=== PATIENT | female | born 1935 | race Caucasian/White ===

== ENCOUNTER → 2016-08-27 | Outpatient (CLI) | payer OTHER ==
[~2016-08-27] MED LIST: ACET-1311 PO; CLX/20 PO; DEXTSYP41 PO; DOCU-94 PO; LSN20 PO; LYR/50 PO; NF656 TD; PANT40TA PO; PROC5TAB PO; SALI1SPR3 NAE; SENN-65 PO; SYN25 PO; TRIA0.25 PO; ULT50 PO; VTMB12 PO; WARF3TAB6 PO
--- NOTE | 2016-08-28 06:38 | SPLIT NIGHT TECHNICIAN REPORT ---
[facility] [address] Split Night Polysomnogram - Registered Public Health Nurse Report Study date: 08/27/2016 Referring Physician: DR. CELIA SANCHEZ Name: CHARLES MONTOYA Registered Public Health Nurse: Chantelle Villa, PSGT. Date of : 1935 Height: 80 years, Height 5' 6" Sex: Female Weight: 118 lbs Age: 80 Split Night Study BMI: Medications: 19.04 LTRICA 50MG, DOCUSATE 100 MG, NEXIUM 40 MG, LISINIPRIL 20 MG, DILTIAZEM 240 MG, SENNA 8.6 MG, B12, CRANBERRY, CITALOPRAM 20 MG, WARFARIN 3 MG, TRIAZOLAM 0.125 MG, TRAMIDOL 50 MG, PROMETHAZINE 12.5 . Patient History 80 YR. OLD FEMALE PRESENTS TONIGHT FOR A DIAGNOSTIC SPLIT NIGHT STUDY.PT. HAD A OVERNIGHT OXIMETRY WHICH DID SHOW 12 DESATS PER HOUR. PT. ALSO SUFFERS FROM INSOMNIA, AND DAYTIME FATIGUE. Parameters Monitored NPSG: E1-M2, E2-M1, Fp1-M2, Fp2-M1, F3-M2, F4-M2, F4-M1, C3-M2, C4-M2, C4-M1, O1-M2, O2-M2, O2-M1, T3-M2, T4-M1, P3-M2, P4-M1, CHIN1, CHIN2, HR, EKG, Legs, PFLOW, SNOR, FLOW, CFLOW, Tidal Volume, THOR, ABDO, SpO2, PLTH, CPRESS, ETCO2 Wave, ETCO2, pH SLEEP SUMMARY DATA DIAGNOSTIC TREATMENT Lights Out: 9:20:09 PM NONE Lights On: 12:35:39 AM 5:16:09 AM Total Recording Time (TRT): 199.2 min. 263.8 min. Total Sleep Time (TST): 162.7 min. 151.8 min. NREM Time: 162.7 min. 136.8 min. REM Time: 0.0 min. 15.0 min. Sleep Period Time (SPT): 173.2 min. 223.8 min. Sleep Efficiency (SE): 82 % 58 % Sleep Latency: 25.0 min. NONE min. Arousal Index: 19.9 7.5 PAP Treatment Levels: 4, 6, 8, 10, 11 * Optimal Pressure(s) SLEEP STAGING DATA DIAGNOSTIC TREATMENT Duration (min) TST % Duration (min) TST % Stage Wake: 36.0 min. -- 112.0 min. -- WASO: 10.5 min. -- 72.0 min. -- NREM: 162.7 min. 100 % 136.8 min. 90 % Stage N1: 7.7 min. 5 % 26.3 min. 17 % Stage N2: 155.0 min. 95 % 110.5 min. 73 % Stage N3: 0.0 min. 0 % 0.0 min. 0 % REM: 0.0 min. 0 % 15.0 min. 10 % POSITIONAL DATA Event Count Index Event Count Index Supine: 114 42.0 42 15.0 Supine NREM: 114 42.0 42 16.7 Supine REM: N/A N/A 0 0 Non-Supine: N/A N/A N/A N/A Non-Supine NREM: N/A N/A N/A N/A Non-Supine REM: N/A N/A N/A N/A AROUSAL SUMMARY DATA: Event Count Index Event Count Index Apnea Arousals: 4 4.1 0 0.0 Hypopnea Arousals: 18 6.6 0 0.0 Snore Arousals: 6 2.2 2 0.8 PLM Arousals: 1 0.4 0 0.0 Non-Specific Arousals: 19 7.0 14 5.5 Total Arousals: 54 19.9 19 7.5 MYOCLONUS (PLM) Event Count Index Event Count Index PLM: 4 1.5 0 0.0 PLM AROUSAL: 1 0.4 0 0.0 PLM W/O AROUSAL 4 1.5 0 0.0 PLM W/RESP EVENT 0 0.0 0 0.0 MYOCLONUS (PLM) Event Count Index Event Count Index LM: 6 37.6 27 10.7 LM AROUSAL: 6 2.2 2 0.8 LM W/O AROUSAL LM W/RESP EVENT LM NON SPECIFIC 67 24.7 22 8.7 HEART RATE DATA DIAGNOSTIC TREATMENT Sleep (bpm): 88 78 REM (bpm): N/A 94 NREM (bpm): 91 93 Tachycardia Count: 0 0 Tachycardia Duration: 0.00 0 Bradycardia Count: 0 0 Bradycardia Duration: 0.00 0 DIAGNOSTIC PORTION TREATMENT PORTION RESPIRATORY DATA Event Count Index Event Count Index AHI: -- 42.0 -- 15.0 RDI: -- 42.0 -- 17 Obstructive Apnea: 11 4.1 0 0.0 Central Apnea: 0 0.0 0 0.0 Mixed Apnea: 0 0.0 0 0.0 Hypopnea: 103 38.0 38 15.0 RERA: 0 0.0 4 1.6 Total Apneas: 11 4.1 0 0.0 RESPIRATORY DATA REM NREM SLEEP REM NREM SLEEP Supine Position: Obstructive Apneas: N/A 11 11 0 0 0 Central Apneas: N/A 0 0 0 0 0 Mixed Apneas: N/A 0 0 0 0 0 Hypopneas: N/A 103 103 0 38 38 RERA N/A 0 0 0 4 4 Total Supine Events: N/A 114 114 0 42 42 Supine AHI: N/A 42.0 42.0 0 16.7 15.0 Supine RDI: N/A 42.0 42.0 0.0 18.4 16.6 REM NREM SLEEP REM NREM SLEEP Non-Supine Position: Obstructive Apneas: N/A N/A N/A N/A N/A N/A Central Apneas: N/A N/A N/A N/A N/A N/A Mixed Apneas: N/A N/A N/A N/A N/A N/A Hypopneas: N/A N/A N/A N/A N/A N/A RERA N/A N/A N/A N/A N/A N/A Total Supine Events: N/A N/A N/A N/A N/A N/A Supine AHI: N/A N/A N/A N/A N/A N/A Supine RDI: N/A N/A N/A N/A N/A N/A OXYGEN DESTAURATION DATA: Event Count Index Event Count Index REM Desaturations: N/A N/A 0 0.0 NREM Desaturations: 124 45.7 34 14.9 SNORE DATA DIAGNOSTIC TREATMENT Snore Time: 10.9 12:51:50 AM Snore TST%: 4 2 Snore Arousal Count: 6 2 Snore Arousal Index: 2.2 0.8 Desaturation Event Summary: Minimum %SpO2 Event Count Mean/Min/Max Duration(sec.) Desaturation Index % Time In Bed > 90 151 37.4 / 16.3 / 60.0 24.5 80.8 86 - 90 13 26.6 / 14.5 / 51.0 9.5 18.0 81 - 85 0 N/A 0.0 1.2 76 - 80 0 N/A 0.0 0.0 71 - 75 0 N/A 0.0 0.0 66 - 70 0 N/A 0.0 0.0 61 - 65 0 N/A 0.0 0.0 56 - 60 0 N/A 0.0 0.0 51 - 55 0 N/A 0.0 0.0 < 50 0 N/A 0.0 0.0 OXYGEN SATURATION DATA DIAGNOSTIC TREATMENT SpO2 Mean Sleep: 91 % 93 % SpO2 Mean REM: N/A % 94 % SpO2 Mean NREM: 91 % 93 % SpO2 Minimum Sleep: 81 % 86 % SpO2 Minimum REM: N/A % 93 % SpO2 Minimum NREM: 81 % 86 % Time Below 90% (TST): 46.5 3.4 Time Below 88% (TST): 19.7 0.5 Total REM NREM Awake <50% 0.0 min. 0.0 min. 0.0 min. 0.0 min. 51 - 60% 0.0 min. 0.0 min. 0.0 min. 0.0 min. 61 - 70% 0.0 min. 0.0 min. 0.0 min. 0.0 min. 71 - 80% 0.0 min. 0.0 min. 0.0 min. 0.0 min. 81 - 90% 87.4 min. 0.0 min. 76.1 min. 11.3 min. 91 - 100% 369.1 min. 15.0 min. 223.4 min. 130.7 min. Average 93 94 92 94 Minimum SpO2 77 93 81 77 Desaturation Event Index 20.5 0.0 31.7 0.4 # Desat. Events below 89% 90 N/A 90 0 Time(%) with Saturation below 89% 7.6 0.0 7.2 0.4 Time(min.) with Saturation below 89% 34.7 0.0 33.0 1.7 Recording Registered Public Health Nurse Comments: Split -Night: MS. Montoya slept in the left, and supine positions. Cardiac arrhythmia, no PLM's noted. No bruxism noted. Snoring was noted and scored as a 3 on a scale of 1 through 5. (0=no snoring, 5=snoring loud enough to be heard through a closed door or down the [address] way) At 12:35 am, MS. Montoya has met specific Split-Night criteria during the diagnostic portion of this study. CPAP was initiated at +4 CMH2O and up-titrated to an optimal level of +11 CMH2O, which nearly eliminated all respiratory events and snoring. A small Res Med Air Fit F-20, was used during titration Ms. Montoya awoke to use the restroom zero times during the night. MS. Montoya stated, I did sleep well here. The final report will be interpreted and signed by a sleep physician. The completed physician report will then be placed in the patient medical record. Pt. had taken Triazolam before bed, she slept well. Pt. wore a small full face mask, she slept with her mouth open throughout the study, she tolerated the mask and treatment well. Therapy Event: Therapy (cm H20) 0 4 6 8 10 11 Total Time at Pressure (min.) 198.7 5.6 9.8 84.8 21.6 142.0 TST at Pressure (min.) 162.7 5.6 8.8 65.8 20.1 51.5 # Periods 1 1 1 1 1 1 Sleep Onset (min.) 25.0 0.0 0.0 0.0 0.0 0.0 REM Onset (min.) N/A N/A N/A N/A N/A 36.5 Sleep Efficiency % 81 100 89 77 93 36 Wakefulness (%) 18.1 0.0 10.2 22.4 6.9 63.7 Wakefulness (min.) 36.0 0.0 1.0 19.0 1.5 90.5 NREM 1 (%) 3.9 23.5 71.4 10.0 13.9 4.6 NREM 1 (min.) 7.7 1.3 7.0 8.5 3.0 6.5 NREM 2 (%) 78.0 76.5 18.4 67.6 79.2 21.1 NREM 2 (min.) 155.0 4.3 1.8 57.3 17.1 30.0 NREM 3 (%) 0.0 0.0 0.0 0.0 0.0 0.0 NREM 3 (min.) 0.0 0.0 0.0 0.0 0.0 0.0 REM (%) 0.0 0.0 0.0 0.0 0.0 10.6 REM (min.) 0.0 0.0 0.0 0.0 0.0 15.0 # Arousals 54 1 4 7 1 6 Arousal Index 19.9 10.6 27.3 6.4 3.0 7.0 # Snore 528 16 33 63 1 2 Snore Index 194.7 170.2 225.0 57.4 3.0 2.3 AHI 42.0 63.8 27.3 21.9 9.0 1.2 AHI Supine 42.0 63.8 27.3 21.9 9.0 1.2 AHI Non-Supine N/A N/A N/A N/A N/A N/A NREM AHI 42.0 63.8 27.3 21.9 9.0 1.6 REM AHI N/A N/A N/A N/A N/A 0.0 RDI 42.0 63.8 54.5 21.9 9.0 1.2 # Obstructive 11 0 0 0 0 0 # Central Ap 0 0 0 0 0 0 # Mixed 0 0 0 0 0 0 # Hypopneas 103 6 4 24 3 1 RERAS 0 0 4 0 0 0 Total Respiratory Events 114 6 8 24 3 1 Time Below SpO2 89.00% (min.) 31.8 0.2 0.2 0.7 0.0 0.0 Mean NREM SpO2 (%) 91 93 93 93 94 94 Mean REM SpO2 (%) N/A N/A N/A N/A N/A 94 Mean Sleep SpO2 (%) 91 93 93 93 94 94 Min NREM SpO2 (%) 81 86 88 87 90 92 Min REM SpO2 (%) N/A N/A N/A N/A N/A 93 Position Supine (min.) 162.7 5.6 8.8 65.8 20.1 51.5 Position Non-supine (min.) 0.0 0.0 0.0 0.0 0.0 0.0 LM Index Sleep 39.1 42.6 27.3 8.2 6.0 9.3 LM Index NREM 39.1 42.6 27.3 8.2 6.0 13.2 LM Index REM N/A N/A N/A N/A N/A 0.0 Mean Heart Rate (bpm) 88 85 83 81 79 73 Min Heart Rate (bpm) 64 73 69 61 64 61
--- NOTE | 2016-08-31 12:48 | POLYSOMNOGRAPH REPORT ---
CLINICAL DATA: The patient is a 80-year-old female with a BMI of 19.04. She is referred by Dr. Jamie Phillips for a split study. Her history is that of observed apnea, daytime fatigue, insomnia, and nocturnal hypoxia. SLEEP ARCHITECTURE: During the diagnostic portion of the study, the sleep period time was 173.2 minutes with the total sleep time of 162.7 minutes. The sleep time included 5% stage N1 and 95% stage N2 with 0% stage N3 or REM. During the therapeutic portion of the study when she was treated with nasal CPAP, the sleep period time was 223.8 minutes with a total sleep time of 151.8 minutes. The sleep efficiency was 58%. The sleep stages during the therapeutic portion included 17% stage N1, 73% stage N2, 0% stage N3, and 10% REM sleep. AROUSAL DATA: During the diagnostic portion of the study, the patient had 54 arousals for an index of 19.9. During the treatment portion of the study, she had 19 arousals for an index of 7.5. PERIODIC LIMB MOVEMENTS DATA: During the diagnostic portion of the study, the patient had a total of 4 periodic limb movements with 1 arousal. The PLM index was 1.5. During the therapeutic portion of the study, there were no periodic limb movements. EKG: The underlying cardiac rhythm was atrial fibrillation. The cardiac rates averaged 88 beats per minute during the diagnostic portion and 78 beats per minute during the therapeutic portion. RESPIRATORY DATA: During the diagnostic portion of the study, the patient had 11 obstructive apneas and 103 hypopneas. The apnea hypopnea index was severely elevated at 42.0 events per hour. During the therapeutic portion of the study, the patient had a total of 38 hypopneas for a mean apnea-hypopnea index of 15.0. At the final pressure of 11 cm, the patient had only 1 respiratory event, a hypopnea. The apnea-hypopnea index was 1.2 events per hour at the final pressure. OXIMETRY DATA: During the diagnostic portion of the study, the minimum oxygen saturation was 81%. The mean saturation was 91%. During the therapeutic portion with nasal CPAP, the minimum oxygen saturation was 86% with a mean of 93%. At the final pressure, the lowest oxygen saturation was 92%. Thus, there was resolution of hypoxia at the final pressure. R[employer] LAP[employer] TENDER'S COMMENTS: The patient slept in the left and supine positions. No bruxism was noted. Snoring was noted as a score of 3 on a scale of 1-5. At 12:35 a.m., the patient had met specific split night criteria during the diagnostic portion of the study. CPAP was initiated at 4 cm and titrated up to an optimal pressure of 11 cm. This essentially resolved all the respiratory events and snoring. IMPRESSION: Obstructive sleep apnea -- severe -- resolved with nasal CPAP at 11 cm. COMMENTS: The patient has severe sleep apnea. In light of this, a split night study was done. She seemed to tolerate nasal CPAP well. The patient did wear a full face mask because she was opening her mouth continuously. Following the study, she did complain of some facial pressure. Clearly, this was related to the mask. Her sleep apnea was resolved and her oxygenation was significantly improved. It may be notable that the patient took triazolam prior to bed as she apparently does at home. She had atrial fibrillation throughout the night with controlled ventricular response rate. She is known to have atrial fibrillation by history. RECOMMENDATIONS: 1. It is advised that the patient be started on nasal CPAP at 11 cm. 2. It is suggested that she be ordered a ResMed Air Fit F-20 size small full facemask. 3. Heated humidity is advised to be utilized with nasal CPAP. 4. The patient should be seen in followup between day 31 and day 90 after initiating nasal CPAP therapy. 5. It is advised that she would avoid sleeping in the supine position. Her events were occurring mainly when she was supine. MTDD
== END | disposition home or self-care (01) ==
LOC: C.NEUR 20:00
DX: G47.33 Obstructive sleep apnea (adult) (pediatric) (principal)

== ENCOUNTER 2019-04-13 21:23 | Inpatient (IN) ==
[2019-04-13] MEDS ORDERED: PROPARACAINE 0.5% 225 DROPS/15 ML BTL ONE (21:48)
[2019-04-13] MEDS ORDERED: CIPROFLOXACIN HCL 0.3% OP SOLN 2.5 ML BTL OP ONE (22:13)
--- NOTE | 2019-04-13 22:45 | Emergency Department Note ---
Entered by Zaid Melo acting as a scribe for Gian Briggs DO History of Present Illness General Chief complaint: Head Pain Stated complaint: PAIN IN HEAD, CHEEK, EYE..EYE DRAINING Time Seen by Provider: 04/13/19 21:35 Source: patient History of Present Illness Onset (ago): day(s) 3 Location: eyes (left) Pain Consistency: + other (worsening) Maximum Pain Intensity: 8 Quality: + burning Exacerbated By: + movement Associated symptoms: + other (Positive for left eye swelling, discharge, and left ankle swelling.) The patient is an 83 year old female who presents to the emergency department with complaints of worsening left eye pain beginning 3 days ago. The patient states that she first developed some left eye irritation and swelling 3 days ago. She notes that she has pain around her left eye on her face which has also worsened. She reports that her eye pain feels like a burning. The patient states that her pain worsens when she moves her eye. She notes that she tried rinsing out her eye and she reports that she did not notice any foreign bodies in her eye. The patient also complains of discharge and left ankle swelling. Home Medications Home Medications Medication Instructions Recorded Confirmed Type aspirin 325 mg PO DAILY@209905/06/18 04/13/19 History diltiazem HCl [Cardizem CD] 240 mg PO DAILY@99905/06/18 04/13/19 History famotidine [Pepcid] 40 mg PO DAILY@209905/06/18 04/13/19 History levothyroxine [Synthroid] 75 mcg PO DAILY@99905/06/18 04/13/19 History omeprazole 40 mg PO DAILY@99905/06/18 04/13/19 History pregabalin [Lyrica] 100 mg PO DAILY@1000,209905/06/18 04/13/19 History sennosides [senna] 8.6 mg PO DAILY@209905/06/18 04/13/19 History atorvastatin 20 mg PO DAILY@209911/16/18 04/13/19 History cranberry 450 mg PO DAILY@99911/16/18 04/13/19 History docusate sodium 200 mg PO DAILY@209911/16/18 04/13/19 History sertraline 50 mg PO DAILY@209911/16/18 04/13/19 History zolpidem 5 mg PO DAILY@2100 11/16/18 04/13/19 History cyanocobalamin (vitamin B-12) 1,000 mcg IM MONTHLY 04/13/19 04/13/19 History digoxin 125 mcg tablet 125 mcg PO DAILY@2100 tab 04/13/19 04/13/19 History ibandronate [Boniva] 150 mg PO MONTHLY 04/13/19 04/13/19 History Allergies Allergy/AdvReac Type Severity Reaction Status Date / Time hydralazine Allergy Intermediate RASH Verified 04/13/19 22:51 oxycodone AdvReac Intermediate HALLUCINATI Verified 04/13/19 22:51 ONS morphine AdvReac Unknown DELIRIUM Verified 04/13/19 22:51 Past Med/Surg History Medical History CVA (cerebral vascular accident) (Resolved) GERD (gastroesophageal reflux disease) (Chronic) Atrial fibrillation with rapid ventricular response (Chronic) Bradycardia Precordial chest pain (Acute) Surgical History H/O cervical spine surgery (Chronic) "cervical decompression with evacuation of cervical epidural hematoma 09/22/2012" Social History Preferred Language: [place] Feels Safe at Home: Yes Smoking Status: Never smoker Review of Systems See HPI for pertinent positives & negatives. and A total of 10 systems reviewed and were otherwise negative Physical Exam Vital Signs Vital Signs - 24 hr 04/13/19 21:28 04/13/19 23:18 Temperature 36.6 C Temperature Source Oral Sepsis Recent Fever Within 48 Hours No Sepsis Action Taken by Nursing No Action Required Pulse Rate 69 Pulse Rate [Right Finger] 65 Pulse Rhythm Regular Pulse Rhythm [Right Finger] Regular Pulse Strength Normal Pulse Strength [Right Finger] Normal Respiratory Rate 16 16 Respiratory Effort / Characteristics Non-Labored Respiratory Depth Normal Normal Respiratory Pattern Regular Regular Blood Pressure 171/76 H Blood Pressure [Right Arm] 190/83 H Blood Pressure Mean 107 Blood Pressure Mean [Right Arm] 118 Blood Pressure Position Sitting Blood Pressure Position [Right Arm] Lying Pulse Oximetry 95 96 Oxygen Delivery Method Room Air Room Air CONSTITUTIONAL/VITAL SIGNS: Reviewed / noted above. GENERAL: Non-toxic in appearance. INTEGUMENTARY: Warm, dry, and [place]. HEAD: Normocephalic. EYES: Examined with and without fluorescein stain with slit lamp, patient does not have any fluorescein uptake, eye reveals some moderate scleral edema and minimal purulent discharge as well as conjunctival injection, eyelids slightly erythematous, patient does have discomfort with extraocular motion. ENT/OROPHARYNX: clear and moist. LYMPHADENOPATHY/NECK: Is supple without lymphadenopathy or meningismus. RESPIRATORY: Lungs clear and equal. CARDIOVASCULAR: Regular rate and rhythm. GI/ABDOMEN: Soft and nontender. No organomegaly or pulsatile mass. No rebound or guarding. Normal bowel sounds. EXTREMITIES: Warm and well perfused. BACK: No CVA tenderness. NEUROLOGICAL: Intact without focal deficits. PSYCHIATRIC: normal affect. MUSCULOSKELETAL: Normally developed with good muscle tone. Procedures Free Text Procedures Slit Lamp Examination Indication: Eye pain The left eye was prepped with topical proparacaine. Slit lamp examination was performed in the standard fashion. Cornea appeared clear. Anterior chamber clear. Scleral injection was present as well as scleral edema. Small amount of purulent discharge present. Fluorescein examination performed and revealed no fluorescein uptake. No foreign bodies noted. Negative Polo sign. The patient tolerated the procedure well without complication. Course 2139: The patient was evaluated in room C9. A complete history and physical exam was performed. 2147: I performed a slit lamp procedure on the patient. 0009: Upon reevaluation, the patient is stable. I discussed the findings and the treatment plan with the patient. She expresses agreement and understanding. I spoke with Dr. Renteria of the [facility] Hospitalist Service. The patient will be evaluated for further management. Consultations Consultation #1: I reviewed the patient's case with Dr. Renteria - Hospitalist, [facility]. He will evaluate the patient for further management. Time: 00:09 Administered Medications Ioversol (Optiray 320 100ml) 67 ml IV ONCE PRN PRN Reason: Interaction Checking Stop: 04/17/19 23:15 Last Admin: 04/13/19 23:16 Dose: 67 ml Documented by: [id number] Discontinued Medications Ciprofloxacin (Ciloxan 0.3% Opth) 2 drops OP NOW ONE Stop: 04/13/19 22:14 Last Admin: 04/13/19 22:37 Dose: 2 drops Documented by: [id number] Ceftriaxone Sodium (Rocephin) 2,000 mg in 70 mls @ 140 mls/hr IV NOW STA Stop: 04/14/19 00:22 Last Admin: 04/14/19 00:09 Dose: 140 mls/hr Documented by: [id number] Proparacaine HCl (Alcaine 0.5%) Confirm Administered Dose 225 drops .ROUTE .STK- MED ONE Stop: 04/13/19 21:49 Last Admin: 04/13/19 22:01 Dose: 1 drops Documented by: [id number] Medical Decision Making Differential Diagnosis Differential diagnoses include: conjunctivitis, orbital cellulitis, periorbital cellulitis, and ocular foreign body. Medical Records Attestation: I reviewed the patient's medical records. Home Medications Current Medication List: was personally reviewed by me Laboratory Data Attestation: I reviewed the patient's lab results. Result diagrams: 04/13/19 22:31 04/13/19 22:31 Lab Results 04/13/19 04/13/19 Range/Units 22:31 22:31 WBC 7.10 (4.8-10.8) K/uL RBC 4.79 (4.2-5.4) M/uL Hgb 12.9 (12.0-16.0) g/dL Hct 38.2 (37-47) % MCV 79.7 L (80-100) fL MCH 26.9 (25-34) pg MCHC 33.8 (32-36) g/dL RDW Std Deviation 43.1 (36.4-46.3) fL RDW Coeff of Alfredo 14.8 H (11.5-14.5) % Plt Count 161 (130-400) K/uL MPV 12.3 H (7.4-10.4) fL Immature Gran % (Auto) 0.1 % Neut % (Auto) 62.6 % Lymph % (Auto) 24.2 % [place] % (Auto) 11.3 % Eos % (Auto) 1.4 % Baso % (Auto) 0.4 % Immature Gran # (Auto) 0.01 (0.00-0.02) K/uL Neut # (Auto) 4.44 (1.4-6.5) K/uL Lymph # (Auto) 1.72 (1.2-3.4) K/uL [place] # (Auto) 0.80 H (0.11-0.59) K/uL Eos # (Auto) 0.10 (0-0.5) K/uL Baso # (Auto) 0.03 (0-0.2) K/uL Ovalocytes 1+ Sodium 142 (136-145) mmol/L Potassium 3.7 (3.5-5.1) mmol/L Chloride 111 H (98-107) mmol/L Carbon Dioxide 28 (21-32) mmol/L Anion Gap 4.0 (3-11) BUN 13 (7-18) mg/dl Creatinine 0.86 (0.6-1.2) mg/dl Est Cr Clr Drug Dosing Not Reportable Est GFR ( Amer) 72.9 Est GFR (Non-Af Amer) 62.9 BUN/Creatinine Ratio 14.7 (10-20) Glucose 112 H (70-99) mg/dl Calcium 9.0 (8.5-10.1) mg/dl Imaging Data Radiologist's Impression: Radiology results as stated below per my review and the radiologist's interpretation: CT ORBITS: Impression: There is subtle edema in the left preseptal soft tissues as well as questionable asymmetric fat stranding in the left retrobulbar fat which could potentially represent orbital cellulitis. 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 Recommend dedicated MRA or CTA of the head. Subtle asymmetric enhancement of the right cavernous sinus which may be physiologic. However, the carotid cavernous sinus fistula cannot entirely be excluded. This could be assessed with a multiphasic CT or MRA. Chronic appearing left thalamic lacunar infarction. Radiologist: Fausto Marina MD. Blood Pressure Blood Pressure Findings: Elevated blood pressure Blood Pressure Disposition: Referred to patients primary care provider [facility] Narrative This is an 83-year-old female who presents to the ED with a chief complaint of left eye pain. The patient states that her symptoms started about 3 days ago. She states that she had pain in the eye. The patient denies any visual changes and states that her vision seems to be fine. She denies any fevers. Denies any other significant symptoms. Her initial blood pressure was elevated. The patient's exam reveals scleral edema with some conjunctival injection. The cornea itself was clear. Anterior and posterior chambers are normal. Pupil response was normal. Patient does not have any iritis. The patient seems to have some discomfort with extraocular motion in the left eye. There is some mild redness to the upper and lower lids. The patient was given ocular Ciloxan drops pending results of test. A CT scan of the orbits reveals some subtle edema in the left preseptal soft tissues as well as a questionable asymmetric fat stranding in the left retrobulbar fat which could potentially represent orbital cellulitis. There is also noted to be a right internal carotid artery aneurysm measuring up to 11 mm. This was seen on previous studies. The patient was started on IV Rocephin and IV vancomycin. I spoke with the hospitalist, who will see the patient for further evaluation. Impression & Plan Cellulitis of left orbit Discharge Plan Visit Data Chief Complaint: Head Pain Stated Complaint: PAIN IN HEAD, CHEEK, EYE..EYE DRAINING ED Provider: Gian Briggs Discharge Problem: Cellulitis of left orbit Patient Disposition: Being Evaluated by Hospitalist Forms Stand Alone Forms: My [facility] Prescriptions Prescriptions: No Action atorvastatin 20 mg tablet 20 mg PO DAILY@2099 RF: 0 zolpidem 5 mg tablet 5 mg PO DAILY@2099 RF: 0 sertraline 50 mg tablet 50 mg PO DAILY@2099 RF: 0 docusate sodium 100 mg Tablet 200 mg PO DAILY@2099 RF: 0 cranberry 450 mg Tablet 450 mg PO DAILY@999 RF: 0 ibandronate [Boniva] 150 mg Tablet 150 mg PO MONTHLY RF: 0 cyanocobalamin (vitamin B-12) 1,000 mcg/mL Kit 1,000 mcg IM MONTHLY RF: 0 sennosides [senna] 8.6 mg Tablet 8.6 mg PO DAILY@2099 RF: 0 aspirin 325 mg Tablet 325 mg PO DAILY@2099 RF: 0 diltiazem HCl [Cardizem CD] 240 mg capsule,extended release 24hr 240 mg PO DAILY@999 RF: 0 famotidine [Pepcid] 40 mg tablet 40 mg PO DAILY@2099 RF: 0 omeprazole 40 mg capsule,delayed release(DR/EC) 40 mg PO DAILY@999 RF: 0 levothyroxine [Synthroid] 75 mcg tablet 75 mcg PO DAILY@999 RF: 0 pregabalin [Lyrica] 50 mg capsule 100 mg PO DAILY@999,2099 RF: 0 digoxin 125 mcg tablet 125 mcg PO DAILY@2099 RF: 0 Referrals Referrals: Edgar Fine, PAArnolC [Primary Care Provider] - The scribe's documentation has been prepared under my direction and personally reviewed by me in its entirety. I confirm that the note above accurately reflects all work, treatment, procedures, and medical decision making performed by me.
[2019-04-13 23:00] LABS: BUN Creatinine Ratio 14.7 (10-20); Blood Urea Nitrogen 13 mg/dl (7-18); Carbon Dioxide 28 mmol/L (21-32); Chloride 111 mmol/L (98-107); Est GFR (African American) 72.9; Est GFR (Non-African American) 62.9; Glucose 112 mg/dl (70-99); Potassium 3.7 mmol/L (3.5-5.1); Sodium 142 mmol/L (136-145)
[2019-04-13] MEDS ORDERED: IOVERSOL 100ml IV PRN (23:16)
[2019-04-13 23:22] LABS: Hematocrit (blood only) 38.2 % (37-47); Hemoglobin 12.9 g/dL (12.0-16.0); Mean Corpuscular Hemoglobin 26.9 pg (25-34); Mean Corpuscular Hgb Conc 33.8 g/dL (32-36); Mean Corpuscular Volume 79.7 fL (80-100); Mean Platelet Volume 12.3 fL (7.4-10.4); Platelet Count 161 K/uL (130-400); RDW Coefficient of Variation 14.8 % (11.5-14.5); RDW Standard Deviation 43.1 fL (36.4-46.3); Red Blood Count 4.79 M/uL (4.2-5.4)
[2019-04-13 23:43] LABS: Basophils # (auto) 0.03 K/uL (0-0.2); Basophils % (auto) 0.4 %; Eosinophils % (auto) 1.4 %; Immature Granulocytes # (auto) 0.01 K/uL (0.00-0.02); Immature Granulocytes % (auto) 0.1 %; Lymphocytes # (auto) 1.72 K/uL (1.2-3.4); Lymphocytes % (auto) 24.2 %; Monocytes % (auto) 11.3 %; Neutrophils # (auto) 4.44 K/uL (1.4-6.5); Neutrophils % (auto) 62.6 %; Ovalocytes 1+
[2019-04-13] MEDS ORDERED: VANCOMYCIN HCL 1,500 MG in SODIUM CHLORIDE 0.9% 500 ML IV ONE (23:53)
[2019-04-13] MEDS ORDERED: cefTRIAXone SODIUM 2,000 MG/70 ML BAG IV STA (23:53)
[2019-04-13] MEDS ORDERED: VANCOMYCIN CONSULT ACTIVE PRN (23:53)
--- NOTE | 2019-04-14 00:45 | History & Physical Report ---
Date of Service April 14, 2019 Assessment & Plan (1) Cellulitis of left orbit: Preseptal cellulitis of left eye/questionable early orbital cellulitis- Continue vancomycin IV and ceftriaxone IV begun in ED. Consult ophthalmology for follow-up. 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 I have asked her daughter, who is with her today, to verify this with her sister who had taken her there. Present on Admission?: Yes (3) Atrial fibrillation with rapid ventricular response: Atrial fibrillation/hypertension- Continue digoxin 125 mcg p.o. daily, if digoxin level is normal. Continue diltiazem CD 2040 mg p.o. daily and aspirin 325 mg p.o. daily Present on Admission?: Yes (4) Hypertension: See above Present on Admission?: Yes (5) Hyperlipidemia LDL goal <70: Continue atorvastatin 20 mg p.o. daily. Present on Admission?: Yes (6) Peripheral neuropathy: Continue pregabalin 100 mg p.o. twice daily Present on Admission?: Yes (7) Depression: Depression/insomnia- Continue sertraline 50 mg p.o. daily and zolpidem 5 mg p.o. at bedtime, which she has tolerated well at home. Present on Admission?: Yes (8) Insomnia: See above Present on Admission?: Yes (9) GERD (gastroesophageal reflux disease): GERD/stomach ulcer- Change omeprazole to pantoprazole per formulary interchange. Continue famotidine 40 mg p.o. daily. Present on Admission?: Yes (10) Stomach ulcer: See above Present on Admission?: Yes (11) B12 deficiency: She is on supplement 1000 mcg IM monthly in the outpatient setting. Present on Admission?: Yes History of Present Illness Chief Complaint: The patient presents to the emergency department with complaint of left eyelids swelling, with discolored drainage, it was initially accompanied by supraorbital discomfort. Primary Care Provider: Edgar Fine The patient is a 83-year-old female with past medical history including hypertension, GERD, hypothyroidism, peripheral neuropathy, hyperlipidemia, depression and atrial fibrillation, who presents to the emergency department with 3 days of worsening left thigh discomfort, erythema and swelling of fluids. She reportedly tried to irrigate her left eye 3 days ago when initially became uncomfortable. Her symptoms also initially included left frontal area tenderness which has since resolved. She has some left-sided nasal congestion as well. Allergies Allergy/AdvReac Type Severity Reaction Status Date / Time hydralazine Allergy Intermediate RASH Verified 04/13/19 22:51 oxycodone AdvReac Intermediate HALLUCINATI Verified 04/13/19 22:51 ONS morphine AdvReac Unknown DELIRIUM Verified 04/13/19 22:51 Home Medications Home Medications Medication Instructions Recorded Confirmed Type aspirin 325 mg PO DAILY@209905/06/18 04/13/19 History diltiazem HCl [Cardizem CD] 240 mg PO DAILY@99905/06/18 04/13/19 History famotidine [Pepcid] 40 mg PO DAILY@209905/06/18 04/13/19 History levothyroxine [Synthroid] 75 mcg PO DAILY@99905/06/18 04/13/19 History omeprazole 40 mg PO DAILY@99905/06/18 04/13/19 History pregabalin [Lyrica] 100 mg PO DAILY@999,209905/06/18 04/13/19 History sennosides [senna] 8.6 mg PO DAILY@209905/06/18 04/13/19 History atorvastatin 20 mg PO DAILY@209911/16/18 04/13/19 History cranberry 450 mg PO DAILY@99911/16/18 04/13/19 History docusate sodium 200 mg PO DAILY@209911/16/18 04/13/19 History sertraline 50 mg PO DAILY@209911/16/18 04/13/19 History zolpidem 5 mg PO DAILY@209911/16/18 04/13/19 History cyanocobalamin (vitamin B-12) 1,000 mcg IM MONTHLY 04/13/19 04/13/19 History digoxin 125 mcg tablet 125 mcg PO DAILY@2099 tab 04/13/19 04/13/19 History ibandronate [Boniva] 150 mg PO MONTHLY 04/13/19 04/13/19 History Past Med/Surg History Medical History CVA (cerebral vascular accident) (Resolved) GERD (gastroesophageal reflux disease) (Chronic) Atrial fibrillation with rapid ventricular response (Chronic) Bradycardia Precordial chest pain (Acute) Surgical History H/O cervical spine surgery (Chronic) "cervical decompression with evacuation of cervical epidural hematoma 09/22/2012" Social History Preferred Language: Qatari Feels Safe at Home: Yes Smoking Status: Never smoker Review of Systems Review of Systems: The patient denies chest pain, palpitations, shortness of breath, dyspnea on exertion, cough, lower extremity swelling, sore throat, fevers, chills, sweats, nausea, vomiting, diarrhea , constipation, abdominal pain, pelvic pain, blood in urine or stool, dysuria, urinary frequency or urgency, lightheadedness, dizziness, memory loss, loss of consciousness, abnormal bruising or bleeding, imbalance, focal or generalized weakness, numbness or tingling in arms or legs, generalized arthralgias or myalgias, back or neck pain, or night sweats. The review of systems is otherwise negative other than for that already noted above, and at least 10 systems have been reviewed. Physical Exam Physical Exam: The patient is awake, alert and oriented 3, well developed and well nourished, lying in bed and in no acute distress. HEENT--PERRL, EOMI. left upper and lower lids with erythema and edema. Green discharge noted from inner canthus of left eye Neck--supple. No JVD. No bruits. Thyroid normal, trachea midline, no ad enopathy. Heart--normal S1 and S2. No murmurs, rubs or gallops. Lungs--clear bilaterally, no respiratory distress, no accessory muscle use. Abdomen--normal bowel sounds and soft. Nontender. Nondistended, no hernias or masses, no organomegaly. Extremities--no cyanosis or clubbing. No edema. There are good distal pulses b/l. Dermatologic--normal skin turgor, normal color, no abnormal lymph nodes, no rash. Neurologic--cranial nerves II through XII grossly intact. Rheumatologic--normal range of motion. Psychiatric--normal affect. Results & Data Vital Signs (Past 12 Hours) Vital Signs Temp Pulse Pulse Resp BP BP Pulse Ox 04/13/19 23:18 65 16 190/83 H 96 04/13/19 21:28 97.9 F 69 16 171/76 H 95 Laboratory Results Laboratory Results WBC 7.10 K/uL (4.8-10.8) 04/13/19: RBC 4.79 M/uL (4.2-5.4) 04/13/19 22: Hgb 12.9 g/dL (12.0-16.0) 04/13/19: Hct 38.2 % (37-47) 04/13/19: MCV 79.7 fL (80-100) L 04/13/19: MCH 26.9 pg (25-34) 04/13/19: MCHC 33.8 g/dL (32-36) 04/13/19: RDW Std Deviation 43.1 fL (36.4-46.3) 04/13/19: RDW Coeff of Alfredo 14.8 % (11.5-14.5) H 04/13/19: Plt Count 161 K/uL (130-400) 04/13/19: MPV 12.3 fL (7.4-10.4) H 04/13/19 22: Immature Gran % (Auto) 0.1 % 04/13/19: Neut % (Auto) 62.6 % 04/13/19 22: Lymph % (Auto) 24.2 % 04/13/19: [place] % (Auto) 11.3 % 04/13/19: Eos % (Auto) 1.4 % 04/13/19: Baso % (Auto) 0.4 % 04/13/19: Immature Gran # (Auto) 0.01 K/uL (0.00-0.02) 04/13/19: Neut # (Auto) 4.44 K/uL (1.4-6.5) 04/13/19: Lymph # (Auto) 1.72 K/uL (1.2-3.4) 04/13/19: [place] # (Auto) 0.80 K/uL (0.11-0.59) H 04/13/19 22: Eos # (Auto) 0.10 K/uL (0-0.5) 04/13/19 22:31 Baso # (Auto) 0.03 K/uL (0-0.2) 04/13/19 22:31 Ovalocytes 1+ 04/13/19 22:31 Sodium 142 mmol/L (136-145) 04/13/19 22:31 Potassium 3.7 mmol/L (3.5-5.1) 04/13/19 22:31 Chloride 111 mmol/L (98-107) H 04/13/19 22:31 Carbon Dioxide 28 mmol/L (21-32) 04/13/19 22:31 Anion Gap 4.0 (3-11) 04/13/19 22:31 BUN 13 mg/dl (7-18) 04/13/19 22:31 Creatinine 0.86 mg/dl (0.6-1.2) 04/13/19 22:31 Est Cr Clr Drug Dosing Not Reportable 04/13/19 22:31 Est GFR ( Amer) 72.9 04/13/19 22:31 Est GFR (Non-Af Amer) 62.9 04/13/19 22:31 BUN/Creatinine Ratio 14.7 (10-20) 04/13/19 22:31 Glucose 112 mg/dl (70-99) H 04/13/19 22:31 Calcium 9.0 mg/dl (8.5-10.1) 04/13/19 22:31 Code Status & VTE Plan Code Status Full code VTE Prophylaxis Plan VTE Prophylaxis will be ordered: Yes PG Care Time/CCT Total # of Minutes Spent Total Time Spent with Patient: Total time spent is greater than 50% in coordination of care (as documented) at patient's floor/unit and/or counseling patient:
[2019-04-14] MEDS ORDERED: HydrALAZINE HCL 20 MG/ML VIAL ONE (01:20)
[2019-04-14] MEDS ORDERED: HydrALAZINE HCL 20 MG/ML VIAL IV STA (01:20)
--- NOTE | 2019-04-14 01:26 | Progress Note ---
Date of Service April 14, 2019 While patient was still in the ED prior to transfer upstairs, ED asked to further treat her elevated blood pressure with systolic in the 200s. Pulse is 65. Spoke with Dr. Renteria. He recommended a single dose of hydralazine 10 mg IV x1. Noted there is a listed allergy in the EMR for hydralazine causing a rash. Spoke with patient at bedside as well as her family. She denies any such allergy and says she has no known allergies to blood pressure medicines. She says that she may have an allergy to penicillin but that oxycodone "makes her crazy". No known allergies in the past involving difficulty breathing or swallowing. We will proceed with single dose of hydralazine and monitor for signs of allergic reaction. Aaron Gee, PGY3 Overnight call Results & Data Vital Signs (Past 12 Hours) Vital Signs Temp Pulse Pulse Resp BP BP Pulse Ox 04/13/19 23:18 65 16 190/83 H 96 04/13/19 21:28 36.6 C 69 16 171/76 H 95
[2019-04-14] MEDS ORDERED: ALUMINUM/MAGNESIUM SUSP 30 ML UDC PO PRN (01:45)
[2019-04-14] MEDS ORDERED: ACETAMINOPHEN 325 MG TAB PO PRN (01:45)
[2019-04-14] MEDS ORDERED: ONDANSETRON INJ 2 MG/ML 2 ML VIAL IV PRN (01:45)
[2019-04-14] MEDS ORDERED: MAGNESIUM HYDROXIDE SUSP 30 ML UDC PO PRN (01:45)
[2019-04-14] MEDS ORDERED: ACETAMINOPHEN 1,000 MG/100 ML VIAL IV PRN (03:37)
[2019-04-14] MEDS ORDERED: dilTIAZem HCL 30 MG TAB PO ONE (03:40)
[2019-04-14] MEDS ORDERED: METOPROLOL TARTRATE 1 MG/ML VIAL IV PRN (03:40)
[2019-04-14] MEDS ORDERED: SULFACETAMIDE SODIUM 10% OP SOLN 15 ML BTL OPL ONE (03:44)
[2019-04-14] MEDS: HYDROmorphone INJ 0.5 MG/0.5 ML SYR IV PRN ×4 (05:03→20:55)
--- NOTE | 2019-04-14 06:44 | CT Scan Report ---
CT orbit BI w con CT DOSE: 72.50 mGy.cm CLINICAL HISTORY: Eye swelling. Possible orbital cellulitis. TECHNIQUE: The patient was scanned in a dynamic helical fashion during intravenous administration of 67 cc of Optiray 320. Axial coronal and sagittal reformatted images were reviewed. A dose lowering t echnique was utilized adhering to the principles of ALARA. COMPARISON STUDY: Noncontrast head CT dated 12/29/2018 FINDINGS: No orbital masses are visualized. No ocular abnormalities are delineated. The extraocular muscles celeste ear normal bilaterally. There is no evidence of proptosis. There is no evidence for abscess. There is no evidence of acute sinusitis. There is an 11 mm right cavernous carotid aneurysm. There is an old left thalamic lacunar infarct. There is minimal edema in the left preseptal soft tissues. IMPRESSION: 1. Minimal edema in the left preseptal soft tissues. 2. No evidence of post septal abscess. The paranasal sinuses are clear. 3. 11 mm right cavernous carotid artery aneurysm 4. 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 04/14/2019 6:42 AM
--- NOTE | 2019-04-14 08:46 | Pharmacy Report ---
Pharmacy Abx Initial Consult - Date of Service April 14, 2019 - Pharmacy Dosing Scope Date of Consult: 04/14/19 Consultation requested by: Dr. Renteria Pharmacy is consulted to initiate Vancomycin IV dosing therapy, order appropriate labs and adjust drug dose/frequency. - Subjective The patient is a 83 year old F admitted on 04/14/19 00:45. - Objective Height: 5 ft 5 in Weight: 57.9 kg Vital Signs (Past 12hrs): Vital Signs Temp Pulse Pulse Resp BP BP BP 04/14/19 07:27 72 04/14/19 07:25 36.5 C 67 18 168/64 H 04/14/19 06:33 68 154/62 H 04/14/19 06:05 161/62 H 04/14/19 05:24 176/73 H 04/14/19 04:12 68 187/72 H 04/14/19 03:30 192/75 H 04/14/19 02:14 88 191/67 H 04/14/19 02:00 36.8 C 74 67 20 205/63 H 04/14/19 01:50 36.8 C 67 20 205/63 H 04/14/19 01:32 65 16 175/83 H 04/14/19 01:28 65 16 176/85 H 04/14/19 01:00 66 16 216/88 H 04/13/19 23:18 65 16 190/83 H 04/13/19 21:28 36.6 C 69 16 171/76 H Pulse Ox 04/14/19 07:27 04/14/19 07:25 94 04/14/19 06:33 04/14/19 06:05 04/14/19 05:24 04/14/19 04:12 04/14/19 03:30 04/14/19 02:14 04/14/19 02:00 95 04/14/19 01:50 95 04/14/19 01:32 99 04/14/19 01:28 96 04/14/19 01:00 96 04/13/19 23:18 96 04/13/19 21:28 95 Lab Results (24hrs): Laboratory Tests (24 Hours) 04/13/19 04/13/19 22:31 22:31 WBC 7.10 Neut # (Auto) 4.44 Creatinine 0.86 Est Cr Clr Drug Dosing Not Reportable - Assessment & Plan Assessment 83 year old F admitted for L orbital cellulitis with drainage. Started on Vancomycin + Rocephin. Plan Vancomycin IV * Estimated PK Parameters: Vd 0.7 L/kg, Tariq 0.042 hr-1, t1/2 16.5 hr * Loading dose: 1500 mg (25 mg/kg) x 1 dose was given in ED at 00:46 AM today. * Maintenance dose: 1000 mg IV (17 mg/kg) every 24 hours to start at 18:00 today. * Goal trough level for Cellulitis: ~ 15 mcg/mL * Trough level ordered for 04/16/19 before dose at 1800. Pharmacy will continue to follow and will adjust dose/frequency as necessary. Thank you.
[2019-04-14] MEDS: SULFACETAMIDE SODIUM 10% OP SOLN 15 ML BTL OPL SCH ×2 (08:56→20:37)
[2019-04-14] MEDS ORDERED: SULFACETAMIDE SODIUM 10% OP SOLN 15 ML BTL OP SCH (09:00)
[2019-04-14] MEDS ORDERED: NON-FORMULARY MEDICATION (Cranberry Fruit [Cranberry] 450 MG) PO SCH (10:00)
[2019-04-14] MEDS: PREGABALIN 50 MG CAP PO SCH ×2 (10:17→20:31)
[2019-04-14] MEDS: LEVOTHYROXINE SODIUM 75 MCG TABLET PO SCH (10:17)
[2019-04-14] MEDS: dilTIAZem HCL 240 MG CAPCR PO SCH (10:17)
[2019-04-14] MEDS: PANTOprazole 40 MG TAB PO SCH (10:17)
--- NOTE | 2019-04-14 10:45 | Infectious Disease Consult ---
Date of Consultation April 14, 2019 Assessment & Plan (1) Periorbital cellulitis of left eye: will continue on IV abx for now. warm compress to left eye. optho eval pending. If she is improving clinically would suggest transition to po doxy 100mg po bid x 14 days total. History of Present Illness Attending Physician: Ronald Glez, pt admitted after increasing left eye swelling, erythema and pain. did not see pcp prior to admission, no prior abx. denies f/c at home. found to have charo- orbital cellulitis, placed on IV vanco and rocephin, tolerating well. still with pain upon eye movement, states no visual impairment. denies trauma to area, no bleeding or purulent drainage but increased tears/watering from left eye. ct orbit in ER negative for abscess/ no bony involvement. min edema noted. optho eval pending. afebrile since admission. no significant improvement but states she does not note any worsening. No micro to review. wbc 7.1, creat 0.8. She is tolerating abx well, denies any abd pain, no n/v/d. no callaway, no neck pain, eating well. no cp, sob, cough, zhou. Allergies Allergy/AdvReac Type Severity Reaction Status Date / Time oxycodone AdvReac Intermediate HALLUCINATI Verified 04/13/19 22:51 ONS morphine AdvReac Unknown DELIRIUM Verified 04/13/19 22:51 Home Medications Home Medications Medication Instructions Recorded Confirmed Type aspirin 325 mg PO DAILY@209905/06/18 04/13/19 History diltiazem HCl [Cardizem CD] 240 mg PO DAILY@99905/06/18 04/13/19 History famotidine [Pepcid] 40 mg PO DAILY@209905/06/18 04/13/19 History levothyroxine [Synthroid] 75 mcg PO DAILY@99905/06/18 04/13/19 History omeprazole 40 mg PO DAILY@99905/06/18 04/13/19 History pregabalin [Lyrica] 100 mg PO DAILY@1000,209905/06/18 04/13/19 History sennosides [senna] 8.6 mg PO DAILY@209905/06/18 04/13/19 History atorvastatin 20 mg PO DAILY@209911/16/18 04/13/19 History cranberry 450 mg PO DAILY@99911/16/18 04/13/19 History docusate sodium 200 mg PO DAILY@209911/16/18 04/13/19 History sertraline 50 mg PO DAILY@209911/16/18 04/13/19 History zolpidem 5 mg PO DAILY@209911/16/18 04/13/19 History cyanocobalamin (vitamin B-12) 1,000 mcg IM MONTHLY 04/13/19 04/13/19 History digoxin 125 mcg tablet 125 mcg PO DAILY@2099 tab 04/13/19 04/13/19 History ibandronate [Boniva] 150 mg PO MONTHLY 04/13/19 04/13/19 History Patient History Medical History CVA (cerebral vascular accident) (Resolved) GERD (gastroesophageal reflux disease) (Chronic) Atrial fibrillation with rapid ventricular response (Chronic) Bradycardia Precordial chest pain (Acute) Surgical History H/O cervical spine surgery (Chronic) "cervical decompression with evacuation of cervical epidural hematoma 09/22/2012" Family History Other Family history non-contributory Social History Preferred Language: Sudanese Communication Ability: Effective Vehicle Body Maker Required: No Beliefs That Will Affect Care: None Current Living Situation: Other Current Living Situation Comment: W/ grandson per pt is 26 Other Information That Helps Us Care for You: No Feels Safe at Home: Yes Safety Concerns: Feels Safe At This Time Smoking Status: Never smoker Hx Alcohol Use: No Hx Substance Use: No Review of Systems Review of Systems: All systems reviewed & are unremarkable except as noted in HPI & below Physical Exam Constitutional: WD/WN, vitals as above Eyes: + eyelid abnormality (left eye closed, able to open but painful); no conjunctival abnormality and no EOM movement deficit ENMT: external ear and nose normal, oropharynx normal Neck: normal visual inspection Respiratory: normal respiratory effort, lungs clear to auscultation Cardiovascular: RRR, no murmur, no edema Gastrointestinal (Abdomen): normal bowel sounds, soft, nontender, no hepatosplenomegaly Musculoskeletal: no cyanosis or clubbing, extremities motor strength 5/5 Skin: no rashes, warm and dry Trauma: no periorbital ecchymosis left eye with min erythema no edema, no warmth, tender to palpation, no open wounds, no purulent drainage or bleeding Psychiatric: A+Ox3, euthymic affect Results & Data Vital Signs (Past 12 Hours) Vital Signs Temp Pulse Pulse Resp BP BP BP 04/14/19 07:27 72 04/14/19 07:25 36.5 C 67 18 168/64 H 04/14/19 06:33 68 154/62 H 04/14/19 06:05 161/62 H 04/14/19 05:24 176/73 H 04/14/19 04:12 68 187/72 H 04/14/19 03:30 192/75 H 04/14/19 02:14 88 191/67 H 04/14/19 02:00 36.8 C 74 67 20 205/63 H 04/14/19 01:50 36.8 C 67 20 205/63 H 04/14/19 01:32 65 16 175/83 H 04/14/19 01:28 65 16 176/85 H 04/14/19 01:00 66 16 216/88 H 04/13/19 23:18 65 16 190/83 H Pulse Ox 04/14/19 07:27 04/14/19 07:25 94 04/14/19 06:33 04/14/19 06:05 04/14/19 05:24 04/14/19 04:12 04/14/19 03:30 04/14/19 02:14 04/14/19 02:00 95 04/14/19 01:50 95 04/14/19 01:32 99 04/14/19 01:28 96 04/14/19 01:00 96 04/13/19 23:18 96 PG Care Time/CCT Total # of Minutes Spent Total Time Spent with Patient: Total time spent is greater than 50% in coordination of care (as documented) at patient's floor/unit and/or counseling patient:
[2019-04-14] MEDS ORDERED: ZOLPIDEM TARTRATE 5 MG TAB PO PRN (14:39)
[2019-04-14] MEDS: VANCOMYCIN HCL 1,000 MG in SODIUM CHLORIDE 0.9% 250 ML IV SCH (17:29)
--- NOTE | 2019-04-14 18:20 | Hospitalist Progress Note ---
Date of Service April 14, 2019 Assessment & Plan (1) Cellulitis of left orbit: - Patient reports initial symptoms suggestive of maybe a sinusitis - reports pain in the L maxillary sinus region which traveled to the frontal region; she states she then developed a foreign body sensation and flushed her eye with warm water but then developed progressive pain, erythema, edema - CT suggestive of preseptal cellulitis with no abscess noted; no sinus congestion - there is questionable fat stranding in L retrobulbar fat possibly indicative of orbital cellulitis - Continue Rocephin and Vancomycin - ID recommendations to continue current Abx and if good clinical response can likely convert to Doxycycline - Pain management and warm compresses - Discussed case with Dr. So - plan confirmed as above - will keep informed for any changes in vision - recommend repeat CT if symptoms slow to improve or worsen -- Patient does have an appointment with Dr. 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: - It appears this is smaller in size compared to initial findings - she was seen in [facility] for this but they report this is still a relatively new finding - Recommend routine outpatient monitoring Present on Admission?: Yes (3) Atrial fibrillation with rapid ventricular response: - Appears to assess in a NSR - currently rate controlled - Continue Digoxin 0.125 mg daily and Diltiazem 240 mg daily; ASA 325 mg daily, Atorvastatin 20 mg daily Present on Admission?: Yes (4) Hypertension: - Having intermittent high blood pressures - states she did have a headache last night but no headaches today but does have pain of the face/eye and likely BP could be somewhat due to pain response/stress/poor sleep - Continue medications as above - can use PRN Hydralazine Present on Admission?: Yes (5) Peripheral neuropathy: - Continue Pregabalin 100 mg BID Present on Admission?: Yes (6) Depression: - Depression/insomnia - Continue Sertraline 50 mg daily and Zolpidem 5 mg HS Present on Admission?: Yes (7) GERD (gastroesophageal reflux disease): - PUD - cover with Protonix and continue Famotidine 40 mg daily Present on Admission?: Yes (8) B12 deficiency: - Continue 1000 mcg IM monthly as outpatient (9) DVT prophylaxis: Disposition: Await clinical response with IV Abx and likely return home when medical suitable for DC Subjective Patient reports that her pain is better controlled with medications. Continues to have watery eyes but does not notice purulent drainage. Family at bedside feel that her eye opens further then it did yesterday however redness is about the same. She states she occ. feels a little warm but does not think she is having a fever. She also endorses higher blood pressure readings that she thinks may be from her pain and lack of sleep but denies having this high of blood pressure readings. Review of Systems Constitutional: no fever, no chills and no body aches Eyes: + eye pain and + problem reported (blurry vision due to frequent watery eyes); no photophobia, no spots in vision and no worsening vision Ear, Nose, Mouth, Throat: no ear pain, no nasal congestion and no sore throat Respiratory: no cough and no dyspnea Cardiovascular: no chest pain, no palpitations, no lightheadedness and no edema Gastrointestinal: no abdominal pain, no nausea, no vomiting, no constipation and no diarrhea/loose stools Genitourinary: no dysuria Integumentary: + erythema (surrounding L eye) Physical Exam Constitutional: WD/WN, vitals as above Eyes: + conjunctival abnormality (mild erythema), + anicteric sclerae, PERRL, EOM intact bilaterally and + periorbital abnormality (erythema with edema of upper/lower) frequent clear watering of L eye but appears to have a small dried green drainage of inner canthus ENMT: Ears: no hearing impairment Neck: normal visual inspection and trachea midline Respiratory: normal respiratory effort, lungs clear to auscultation Cardiovascular: RRR, no murmur, no edema Gastrointestinal (Abdomen): Inspection/Auscultation: normal bowel sounds Percussion/Palpation: abdomen soft; abdomen nontender Musculoskeletal: Head/Neck/Chest: normocephalic and head atraumatic Skin: no rashes, warm and dry (other then mentioned in Eyes section) Neurologic: moves all extremities Psychiatric: A+Ox3, euthymic affect Results & Data Vital Signs (Past 12 Hours) Vital Signs Temp Pulse Pulse Resp BP BP Pulse Ox 04/14/19 15:55 60 04/14/19 14:48 36.5 C 63 18 173/72 H 93 04/14/19 11:53 36.5 C 67 18 173/81 H 95 04/14/19 07:27 72 04/14/19 07:25 36.5 C 67 18 168/64 H 94 04/14/19 06:33 68 154/62 H PG Care Time/CCT Total # of Minutes Spent Total Time Spent with Patient: Total time spent is greater than 50% in coordination of care (as documented) at patient's floor/unit and/or counseling patient:
[2019-04-14] MEDS: ZOLPIDEM TARTRATE 5 MG TAB PO SCH (20:31)
[2019-04-14] MEDS: DOCUSATE SODIUM 100 MG CAP PO SCH (20:32)
[2019-04-14] MEDS: ATORVASTATIN 20 MG TAB PO SCH (20:33)
[2019-04-14] MEDS: DIGOXIN 0.125 MG TAB PO SCH (20:33)
[2019-04-14] MEDS: ASPIRIN 325 MG ECTAB PO SCH (20:36)
[2019-04-14] MEDS: SERTRALINE HCL 50 MG TABLET PO SCH (20:37)
[2019-04-14] MEDS: SENNA 8.6 MG TAB PO SCH (20:37)
[2019-04-14] MEDS: FAMOTIDINE 20 MG TAB PO SCH (20:37)
[2019-04-15] MEDS: cefTRIAXone SODIUM 2,000 MG in DEXTROSE 5% 50 ML IV SCH ×2 (00:32→23:08)
[2019-04-15 07:16] LABS: Creatinine Clr Calc Pharmacy 55.8 ml/min; Est GFR (African American) 93.5; Est GFR (Non-African American) 80.7
[2019-04-15] MEDS: POLYETHYLENE (MIRALAX) 17 GM PACK PO PRN (08:29)
[2019-04-15] MEDS: SULFACETAMIDE SODIUM 10% OP SOLN 15 ML BTL OPL SCH (08:30)
[2019-04-15] MEDS: dilTIAZem HCL 240 MG CAPCR PO SCH (10:00)
[2019-04-15] MEDS: PANTOprazole 40 MG TAB PO SCH (10:00)
[2019-04-15] MEDS: LEVOTHYROXINE SODIUM 75 MCG TABLET PO SCH (10:00)
[2019-04-15] MEDS: PREGABALIN 50 MG CAP PO SCH ×2 (10:08→20:45)
--- NOTE | 2019-04-15 11:51 | Hospitalist Progress Note ---
Date of Service April 15, 2019 Assessment & Plan (1) Cellulitis of left orbit: - Patient reports initial symptoms suggestive of maybe a sinusitis - reports pain in the L maxillary sinus region which traveled to the frontal region; she states she then developed a foreign body sensation and flushed her eye with warm water but then developed progressive pain, erythema, edema approx. 1 week ago - CT suggestive of preseptal cellulitis with no abscess noted - Continue Rocephin and Vancomycin - ID recommendations to continue current Abx and if good clinical response can likely convert to Doxycycline - maybe Wednesday vs Wednesday? - Pain management and warm compresses - Discussed case with Dr. So on 04/14 - plan confirmed as above - will keep informed for any changes in vision - recommend repeat CT if symptoms slow to improve or worsen -- Patient does have an appointment with [facility] - Dr. 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 - rate controlled - Continue Digoxin 0.125 mg daily and Diltiazem 240 mg daily; ASA 325 mg daily, Atorvastatin 20 mg daily (4) Hypertension: - Having intermittent high blood pressures - which are improving today - possibly related to pain/stress/poor sleep - Continue medications as above - can use PRN Hydralazine (5) Peripheral neuropathy: - Continue Pregabalin 100 mg BID (6) Depression: - Depression/insomnia - Continue Sertraline 50 mg daily and Zolpidem 5 mg HS (7) GERD (gastroesophageal reflux disease): - PUD - cover with Protonix and continue Famotidine 40 mg daily (8) B12 deficiency: - Continue 1000 mcg IM monthly as outpatient (9) DVT prophylaxis: Disposition: Await clinical response with IV Abx and likely return home when medical suitable for DC - Possibly Wednesday? Subjective Reports improvement in eye pain able to open her eye better. Notes increasing nasal drainage that is clear. She feels that her vision is less blurry today but continues with clear watering eyes. No new symptoms noted. Tolerated diet. Verbalizes no other complaints Review of Systems Constitutional: no fever and no chills Eyes: no diplopia, no photophobia and no worsening vision watery eyes - clear drainage Ear, Nose, Mouth, Throat: + nasal discharge (clear) Respiratory: no cough and no dyspnea Cardiovascular: no chest pain Gastrointestinal: no abdominal pain, no nausea, no vomiting, no constipation and no diarrhea/loose stools Genitourinary: no dysuria Integumentary: + rash improving erythema to L eye; reducing edema to L eye lids Neurologic: no headache(s) Physical Exam Constitutional: WD/WN, vitals as above Eyes: + conjunctival abnormality (mild erythema), PERRL, EOM intact bilaterally and + periorbital abnormality (erythema with edema of upper/lower) erythema in lateral lower corner of eye region appears to be reducing with reducing edema of upper and lower lids ENMT: Ears: no hearing impairment Neck: normal visual inspection and trachea midline Respiratory: normal respiratory effort, lungs clear to auscultation Cardiovascular: RRR, no murmur, no edema Gastrointestinal (Abdomen): Inspection/Auscultation: normal bowel sounds Percussion/Palpation: abdomen soft; abdomen nontender Musculoskeletal: Head/Neck/Chest: normocephalic and head atraumatic Skin: no rashes, warm and dry (other then mentioned in Eyes section) Neurologic: moves all extremities Psychiatric: A+Ox3, euthymic affect Results & Data Vital Signs (Past 12 Hours) Vital Signs Temp Pulse Pulse Resp BP BP Pulse Ox 04/15/19 11:31 36.4 C L 65 18 167/77 H 94 04/15/19 07:32 65 04/15/19 07:12 36.7 C 60 18 166/68 H 93 04/15/19 01:26 72 04/15/19 00:00 36.8 C 65 21 187/92 H 94 PG Care Time/CCT Total # of Minutes Spent Total Time Spent with Patient: Total time spent is greater than 50% in coordination of care (as documented) at patient's floor/unit and/or counseling patient:
[2019-04-15] MEDS: HYDROmorphone INJ 0.5 MG/0.5 ML SYR IV PRN ×2 (13:17→17:34)
[2019-04-15] MEDS ORDERED: KETOROLAC TROMETHAMINE 15 MG/ML VIAL IV ONE (17:51)
[2019-04-15] MEDS: VANCOMYCIN HCL 1,000 MG in SODIUM CHLORIDE 0.9% 250 ML IV SCH (17:59)
[2019-04-15] MEDS: ZOLPIDEM TARTRATE 5 MG TAB PO SCH (20:45)
[2019-04-15] MEDS: DOCUSATE SODIUM 100 MG CAP PO SCH (20:46)
[2019-04-15] MEDS: ATORVASTATIN 20 MG TAB PO SCH (20:46)
[2019-04-15] MEDS: SERTRALINE HCL 50 MG TABLET PO SCH (20:46)
[2019-04-15] MEDS: DIGOXIN 0.125 MG TAB PO SCH (20:47)
[2019-04-15] MEDS: FAMOTIDINE 20 MG TAB PO SCH (20:47)
[2019-04-15] MEDS: SENNA 8.6 MG TAB PO SCH (20:48)
[2019-04-15] MEDS: ASPIRIN 325 MG ECTAB PO SCH (20:48)
[2019-04-15] MEDS: HydrALAZINE HCL 20 MG/ML VIAL IV PRN (23:37)
[2019-04-16] MEDS: HydrALAZINE HCL 20 MG/ML VIAL IV PRN (07:45)
[2019-04-16 07:59] LABS: BUN Creatinine Ratio 19.3 (10-20); Calcium 8.3 mg/dl (8.5-10.1); Creatinine Clr Calc Pharmacy 59.1 ml/min; Est GFR (African American) 95.3; Est GFR (Non-African American) 82.3; Potassium 3.6 mmol/L (3.5-5.1)
[2019-04-16] MEDS ORDERED: AMLODIPINE BESYLATE 5 MG TAB PO ONE (08:18)
[2019-04-16 08:40] LABS: Hematocrit (blood only) 42.2 % (37-47); Mean Corpuscular Hemoglobin 26.6 pg (25-34); Mean Corpuscular Hgb Conc 33.2 g/dL (32-36); Mean Corpuscular Volume 80.1 fL (80-100); Mean Platelet Volume 11.3 fL (7.4-10.4); Platelet Count 155 K/uL (130-400); RDW Coefficient of Variation 14.9 % (11.5-14.5); RDW Standard Deviation 43.3 fL (36.4-46.3); Red Blood Count 5.27 M/uL (4.2-5.4); White Blood Count 7.44 K/uL (4.8-10.8)
[2019-04-16] MEDS: HYDROmorphone INJ 0.5 MG/0.5 ML SYR IV PRN ×2 (08:51→19:34)
[2019-04-16] MEDS ORDERED: KETOROLAC TROMETHAMINE 15 MG/ML VIAL IV ONE (09:09)
[2019-04-16] MEDS: KETOROLAC 30 MG/ML VIAL ONE ×2 (09:20→09:26)
[2019-04-16] MEDS ORDERED: IOVERSOL 100ml IV PRN (09:51)
--- NOTE | 2019-04-16 10:25 | CT Scan Report ---
CT orbit BI w con HISTORY: 83 years-old Female Preseptal cellulitis, worsening symptoms acute left periorbital celluli tis with worsening symptoms COMPARISON: CT of the orbits 04/13/2019 TECHNIQUE: Multiple axial CT images of the orbits were obtained following the intravenous ministratio n of 95 mL Optiray 320 IV contrast. A dose lowering technique was used consistent with the principals of KEYUR. FINDINGS: Mild asymmetric enlargement with increased enhancement of the left lacrimal glands. Minimal edema wit hin the left preseptal periorbital soft tissues has not significant change from comparison study. No post septal inflammation or drainable fluid collection. Prior bilateral cataract repair. Extraocular musculature and optic nerves appear to be within normal limits bilaterally. No opaque foreign body. I mage intracranial structures demonstrate no acute abnormality. 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 Age-related involutional changes. 11 mm aneurysmal dilation of the cavernous segment of the right internal carotid arteries unchanged. No acute calvarial fracture or bony erosive changes. Mastoid air cells and middle ear cavities are cl ear. Mild mucosal thickening of the nasal turbinates and ethmoid air cells. There is mild sigmoidal b owing of the nasal septum. IMPRESSION: 1. Mild preseptal inflammation about the left orbit has not significantly changed from 04/13/2019 and again is suggestive of periorbital cellulitis. No post septal inflammation or drainable fluid collect ion. 2. Mild asymmetric enlargement with increased enhancement of the left lacrimal gland is suggestive of associated dacrocystitis. 3. 11 mm aneurysmal dilation of the cavernous segment right ICA is unchanged. The above report was generated using voice recognition software. It may contain grammatical, syntax o r spelling errors. Electronically signed by: Joseph Cuadra M.D. 04/16/2019 10:23 AM
[2019-04-16] MEDS: dilTIAZem HCL 240 MG CAPCR PO SCH (11:01)
[2019-04-16] MEDS: PREGABALIN 50 MG CAP PO SCH ×2 (11:01→20:38)
[2019-04-16] MEDS: PANTOprazole 40 MG TAB PO SCH (11:01)
[2019-04-16] MEDS: LEVOTHYROXINE SODIUM 75 MCG TABLET PO SCH (11:01)
[2019-04-16] MEDS ORDERED: MECLIZINE HCL 25 MG TAB PO PRN (11:11)
[2019-04-16] MEDS ORDERED: DEXAMETHASONE SOD INJ 4 MG/ML VIAL IV STA (11:11)
[2019-04-16] MEDS ORDERED: DEXAMETHASONE SOD PHOSPHATE 6 MG in SYRINGE 0 ML IV ONE (11:30)
[2019-04-16] MEDS: SULFACETAMIDE SODIUM 10% OP SOLN 15 ML BTL OPL SCH ×5 (11:57→23:52)
[2019-04-16] MEDS ORDERED: VANCOMYCIN TROUGH ONE (17:30)
[2019-04-16] MEDS ORDERED: KETOROLAC TROMETHAMINE 15 MG/ML VIAL IV PRN (17:46)
[2019-04-16] MEDS: VANCOMYCIN HCL 1,000 MG in SODIUM CHLORIDE 0.9% 250 ML IV SCH (17:59)
--- NOTE | 2019-04-16 18:50 | Pharmacy Report ---
Pharmacy Abx Dose Short Note - Date of Service April 16, 2019 - Assessment & Plan Assessment * 83 year old F receiving vancomycin for L orbital cellulitis with drainage * Day #3 of antimicrobial therapy * ID recommends switching to PO doxycycline if patient continues to improve clinically Plan Vancomycin * Trough level of 7.8 mcg/mL is subtherapeutic * Change to 1000 mg IV every 16 hours * Goal trough level ~15 mcg/mL * Trough will be ordered accordingly if vancomycin continued Pharmacy will continue to follow and will adjust dose/frequency as necessary. Thank you.
[2019-04-16] MEDS: SENNA 8.6 MG TAB PO SCH (20:36)
[2019-04-16] MEDS: DOCUSATE SODIUM 100 MG CAP PO SCH (20:36)
[2019-04-16] MEDS: FAMOTIDINE 20 MG TAB PO SCH (20:38)
[2019-04-16] MEDS: ATORVASTATIN 20 MG TAB PO SCH (20:38)
[2019-04-16] MEDS: ASPIRIN 325 MG ECTAB PO SCH (20:39)
[2019-04-16] MEDS: SERTRALINE HCL 50 MG TABLET PO SCH (20:40)
[2019-04-16] MEDS: ZOLPIDEM TARTRATE 5 MG TAB PO SCH (20:41)
[2019-04-16] MEDS: DIGOXIN 0.125 MG TAB PO SCH (20:45)
[2019-04-16] MEDS: POLYETHYLENE (MIRALAX) 17 GM PACK PO PRN (20:54)
--- NOTE | 2019-04-16 21:27 | Hospitalist Progress Note ---
Date of Service April 16, 2019 Assessment & Plan (1) Cellulitis of left orbit: - Patient reports initial symptoms suggestive of maybe a sinusitis - reports pain in the L maxillary sinus region which traveled to the frontal region; she states she then developed a foreign body sensation and flushed her eye with warm water but then developed progressive pain, erythema, edema approx. 1 week ago - CT suggestive of preseptal cellulitis with no abscess noted Repeat CT orbits on 04/16 due to worsening pain in left eye and headache still with periorbital (preseptal) cellulitis, no signs of orbital cellulitis no fever, normal WBC - Continue Rocephin and Vancomycin - ID recommendations to continue current Abx once she has a better clinical response can convert to Doxycycline warm compresses, Toradol for pain Decadron 6mg IV given once, excellent response, plan for repeat dose tomorrow AM continue Sulfacetamide drops q3 while awake in left eye hopeful for discharge in 2-3 days if she continued this course - Discussed case with Dr. So on 04/14 - plan confirmed as above - will keep informed for any changes in vision - recommend repeat CT if symptoms slow to improve or worsen -- Patient does have an appointment with [facility] - Dr. 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: - It appears this is smaller in size compared to initial findings - she was seen in [facility] [place] for this - Recommend routine outpatient monitoring (3) Atrial fibrillation with rapid ventricular response: - Paced/A Fib on desk monitor - rate controlled - Continue Digoxin 0.125 mg daily and Diltiazem 240 mg daily; ASA 325 mg daily, Atorvastatin 20 mg daily (4) Hypertension: - Having intermittent high blood pressures - possibly related to pain/stress/poor sleep - Continue medications as above - can use PRN Hydralazine added Norvasc 10mg daily on 04/16 for BP > 200 systolic improved pressures to 160's systolic (5) Peripheral neuropathy: - Continue Pregabalin 100 mg BID (6) Depression: - Depression/insomnia - Continue Sertraline 50 mg daily and Zolpidem 5 mg HS (7) GERD (gastroesophageal reflux disease): - PUD - cover with Protonix and continue Famotidine 40 mg daily (8) B12 deficiency: - Continue 1000 mcg IM monthly as outpatient (9) DVT prophylaxis: Disposition: Await clinical response with IV Abx and likely return home when medical suitable for DC - Possibly Wednesday? Subjective patient was doing well yesterday and this morning she then experienced a severe headache, behind eyes and nose, increased pain with left eye vision blurry, said that her eye hurt with movement saw in the morning, clearly had some distress family agreed that she did not look as good as yesterday this was despite three days of antibiotics and improvement CT orbit today, showed no real change in the periorbital cellulitis, but it did NOT show any signs of abscess or orbital cellulitis discussed with RN, changed from cold compress to warm compress to keep tear duct open and draining gave a single dose of Decadron for inflammation Toradol PRN for headache revisited in the afternoon, much much better smiling, resting comfortably also, BP was quite high this morning, gave dose of Norvasc 10mg, helped reviewed labs, WBC normal at 5k, BMP normal Review of Systems Review of Systems: All systems reviewed & are unremarkable except as noted in HPI & below Constitutional: + fatigue and + weakness; no fever, no chills, no sweats and no body aches Eyes: + discharge (left eye), + eye pain (left eye) and + worsening vision (blurred vision in left eye) Respiratory: no cough and no dyspnea Cardiovascular: no chest pain and no edema Neurologic: + headache(s) Physical Exam Constitutional: WD/WN, vitals as above Eyes: normal visual madden by confrontation, + eyelid abnormality (left upper and lower lid swollen, red, tender), + conjunctival abnormality (injection noted, clear discharge), + scleral abnormality (eye ball red), PERRL and normal accommodation ENMT: external ear and nose normal, oropharynx normal Neck: trachea midline, no thyromegaly Respiratory: normal respiratory effort, lungs clear to auscultation Cardiovascular: RRR, no murmur, no edema Gastrointestinal (Abdomen): normal bowel sounds, soft, nontender, no hepatosplenomegaly Musculoskeletal: no cyanosis or clubbing, extremities motor strength 5/5 Skin: no rashes, warm and dry Neurologic: patellar DTR's 2+ bilat, sensation intact and PERRL, EOMI, accommodation nl, no face palsy, no dysarthria Psychiatric: A+Ox3, euthymic affect Lymphatic: no cervical or axillary lymphadenopathy Results & Data Vital Signs (Past 12 Hours) Vital Signs Temp Pulse Pulse Resp BP BP Pulse Ox 04/16/19 20:45 71 04/16/19 15:50 36.8 C 81 18 168/71 H 92 04/16/19 10:10 165/78 H 165/68 H Laboratory Results Laboratory Results - last 24 hr 04/16/19 04/16/19 04/16/19 07:19 07:19 08:22 WBC Cancelled 7.44 RBC Cancelled 5.27 Hgb Cancelled 14.0 Hct Cancelled 42.2 MCV Cancelled 80.1 MCH Cancelled 26.6 MCHC Cancelled 33.2 RDW Std Deviation Cancelled 43.3 RDW Coeff of Alfredo Cancelled 14.9 H Plt Count Cancelled 155 MPV Cancelled 11.3 H Absolute Nucleated RBC Cancelled Nucleated RBC % (auto) Cancelled Platelet Estimate Cancelled Sodium 142 Potassium 3.6 Chloride 111 H Carbon Dioxide 25 Anion Gap 6.0 BUN 13 Creatinine 0.66 Est Cr Clr Drug Dosing 59.1 Est GFR ( Amer) 95.3 Est GFR (Non-Af Amer) 82.3 BUN/Creatinine Ratio 19.3 Glucose 88 Calcium 8.3 L Vancomycin Trough 04/16/19 17:34 WBC RBC Hgb Hct MCV MCH MCHC RDW Std Deviation RDW Coeff of Alfredo Plt Count MPV Absolute Nucleated RBC Nucleated RBC % (auto) Platelet Estimate Sodium Potassium Chloride Carbon Dioxide Anion Gap BUN Creatinine Est Cr Clr Drug Dosing Est GFR ( Amer) Est GFR (Non-Af Amer) BUN/Creatinine Ratio Glucose Calcium Vancomycin Trough 7.[address] orbits 04/16 IMPRESSION: 1. Mild preseptal inflammation about the left orbit has not significantly changed from 04/13/2019 and again is suggestive of periorbital cellulitis. No post septal inflammation or drainable fluid collection. 2. Mild asymmetric enlargement with increased enhancement of the left lacrimal gland is suggestive of associated dacrocystitis. 3. 11 mm aneurysmal dilation of the cavernous segment right ICA is unchanged. PG Care Time/CCT Total # of Minutes Spent Total Time Spent with Patient: Total time spent is greater than 50% in coordination of care (as documented) at patient's floor/unit and/or counseling patient:
[2019-04-16] MEDS: cefTRIAXone SODIUM 2,000 MG in DEXTROSE 5% 50 ML IV SCH (23:50)
[2019-04-17] MEDS: SULFACETAMIDE SODIUM 10% OP SOLN 15 ML BTL OPL SCH ×8 (03:15→23:30)
[2019-04-17 08:18] LABS: Creatinine Clr Calc Pharmacy 43.4 ml/min; Est GFR (Non-African American) 59.5
[2019-04-17] MEDS: dilTIAZem HCL 240 MG CAPCR PO SCH (08:46)
[2019-04-17] MEDS: PREGABALIN 50 MG CAP PO SCH ×2 (08:46→20:29)
[2019-04-17] MEDS: PANTOprazole 40 MG TAB PO SCH (08:46)
[2019-04-17] MEDS: LEVOTHYROXINE SODIUM 75 MCG TABLET PO SCH (08:46)
[2019-04-17] MEDS ORDERED: DEXAMETHASONE SOD PHOSPHATE 6 MG in SYRINGE 0 ML IV SCH (09:00)
[2019-04-17] MEDS ORDERED: TRAMADOL HCL 50 MG TABLET PO PRN (10:02)
--- NOTE | 2019-04-17 10:04 | Infectious Disease Progress Nt ---
Date of Service April 17, 2019 Assessment & Plan (1) Periorbital cellulitis of left eye: will continue on IV abx for now. warm compress to left eye. optho eval pending. If she is improving clinically would suggest transition to po doxy 100mg po bid x 14 days total. Subjective pt seen in followup, remains on CTX and vanco. tolerating well. still with pain over left eye, repeat ct done yesterday, no change, no abscess. using warm compress, currently has tea bag over eye. states she felt good this am, no pain, but when she got up to use bathroom, she had pain. no f/c. no cultures to review. labs yesterday normal. no abd pain, no n/v/d. Review of Systems Review of Systems: All systems reviewed & are unremarkable except as noted in HPI & below Physical Exam Constitutional: WD/WN, vitals as above Eyes: + eyelid abnormality (left eye closed, able to open but painful); no conjunctival abnormality and no EOM movement deficit ENMT: external ear and nose normal, oropharynx normal Neck: normal visual inspection Respiratory: normal respiratory effort, lungs clear to auscultation Cardiovascular: RRR, no murmur, no edema Gastrointestinal (Abdomen): normal bowel sounds, soft, nontender, no hepatosplenomegaly Musculoskeletal: no cyanosis or clubbing, extremities motor strength 5/5 Skin: no rashes, warm and dry Trauma: no periorbital ecchymosis no perio rbial edema, eye more open today, EOMI, min erythema, no warmth Psychiatric: A+Ox3, euthymic affect Results & Data Vital Signs (Past 12 Hours) Vital Signs Temp Pulse Resp BP BP Pulse Ox 04/17/19 07:12 36.6 C 73 18 169/67 H 92 04/16/19 23:55 80 167/74 H 04/16/19 22:47 36.6 C 62 20 181/74 H 94 PG Care Time/CCT Total # of Minutes Spent Total Time Spent with Patient: Total time spent is greater than 50% in coordination of care (as documented) at patient's floor/unit and/or counseling patient:
[2019-04-17] MEDS: VANCOMYCIN HCL 1,000 MG in SODIUM CHLORIDE 0.9% 250 ML IV SCH (10:09)
[2019-04-17] MEDS: ACETAMINOPHEN 325 MG TAB PO SCH ×2 (11:01→22:46)
--- NOTE | 2019-04-17 12:26 | Hospitalist Progress Note ---
Date of Service April 17, 2019 Assessment & Plan (1) Cellulitis of left orbit: - May have been related to sinusitis based on initial symptoms; erythema and edema now improved, continues to have periorbital pain. - CT on admission concerning for preseptal cellulitis; repeat CT on 04/16 (due to worsening pain in left eye) showed preseptal cellulitis, no evidence of orbital cellulitis, but also with dacrocystitis. - ID consulted, appreciate input. Continue Rocephin and Vanco IV; can likely convert to Doxy at discharge. - Received Decadron IV on 04/16 and 04/17; consider further doses if necessary. - Sulfacetamide drops q3hr while awake in left eye. - Warm compresses; Tylenol 650 mg q8hr scheduled with Tramadol prn pain. - Discussed case with Dr. So on 04/14, plan as above - recommend repeat CT if symptoms slow to improve or worsen - Has an appointment with [facility] - Dr. Bhakta (Public Health Aide) next month. (2) Dizziness: - Developed dizziness over last 24 hours; likely orthostatic related to positional changes. - Orthostatic vital signs pending. - PT/OT for discharge planning. - Most recent TTE in Jun 2016 showed preserved EF, mild aortic regurg. 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 - Recommend routine outpatient monitoring. (4) Atrial fibrillation with rapid ventricular response: - Paced on monitor, rate controlled. - Continue Digoxin 0.125 mg daily and Diltiazem 240 mg daily as prescribed. - Pt. is not currently on anticoagulation therapy, previously on Coumadin. Follows with Dr. Lam. (5) Hypertension: - BP has been elevated during this admission -- possibly related to p ain/stress/steroid induced. - Continue home Diltiazem as prescribed. - Will add Lisinopril 5 mg daily -- titrate as tolerated. (6) Hyperlipidemia LDL goal <70: - Continue statin and aspirin as prescribed. (7) Peripheral neuropathy: - Continue Pregabalin 100 mg BID. (8) Depression: - Continue Sertraline 50 mg daily and Zolpidem 5 mg qhs. (9) Hypothyroidism: - Continue Levothyroxine 75 mcg daily. - Most recent TSH was 1.7 in Jun 2018. (10) GERD (gastroesophageal reflux disease): - Protonix and Famotidine. (11) B12 deficiency: - Continue monthly IM injection as outpatient. (12) DVT prophylaxis: - Start Lovenox subQ q24hr. Dispo: Med/surg with tele; discharge pending PT/OT evaluation and improvement in charo-orbital pain, likely on 04/18/19. Supervising Physician Co-Signing Physician Notes PA Supervision Note: I did not personally see or examine the patient today, but I verified all radford points of ABBY Tate's assessment and plan with the following exceptions/additions: None Subjective Pt. complains of pain in left charo-orbital area but states pain is improving overall. Redness/swelling also improved. Is eating/drinking. Has not had a BM in 3 days. Denies nausea/vomiting. Pt. does report new dizziness -- occurs only with standing. She ambulated to the restroom today and developed symptoms; she has not been ambulating frequently as inpt -- will order PT/OT evaluation and orthostatics. Review of Systems Review of Systems: All systems reviewed & are unremarkable except as noted in HPI & below Constitutional: no fever, no chills, no fatigue, no weakness and no anorexia Eyes: + problem reported (Charo-orbital pain, mild swelling, no erythema ) Respiratory: no cough, no dyspnea, no dyspnea on exertion and no wheezing Cardiovascular: + lightheadedness; no chest pain, no palpitations, no syncope and no edema Gastrointestinal: + constipation; no abdominal pain and no nausea Genitourinary: no difficulty urinating Musculoskeletal: no back pain and no joint pain Integumentary: no non-healing lesions and no erythema Physical Exam Physical Exam: General: Resting comfortably HEENT: NC/AT; PERRLA; Mild edema of left upper eyelid, no erythema noted. Extra ocular movements intact. Neck: Supple and nontender Cardiac: RRR Lungs: CTA bilaterally Abdomen: Bowel normoactive X 4; Nontender to palpation Extremities: Warm. No edema present Neuro: No focal weakness Skin: No rash Results & Data Vital Signs (Past 12 Hours) Vital Signs Temp Pulse Resp BP Pulse Ox 04/17/19 07:12 36.6 C 73 18 169/67 H 92 Laboratory Results 04/17/19 04/16/19 Range/Units 07:27 17:34 Creatinine 0.90 (0.6-1.2) mg/dl Est Cr Clr Drug Dosing 43.4 ml/min Est GFR ( Amer) 69.0 Est GFR (Non-Af Amer) 59.5 Vancomycin Trough 7.8 (See Comment) mcg/ml PG Care Time/CCT Total # of Minutes Spent Total Time Spent with Patient: Total time spent is greater than 50% in coordination of care (as documented) at patient's floor/unit and/or counseling patient:
[2019-04-17] MEDS ORDERED: AMLODIPINE BESYLATE 5 MG TAB PO SCH (12:45)
[2019-04-17 13:33] LABS: INR 1.1 (0.9-1.1); Partial Thromboplastin Ratio 1.1; Prothrombin Time 10.8 Seconds (9.0-12.0)
[2019-04-17] MEDS: ENOXAPARIN INJ 40 MG/0.4 ML SYR SQ SCH (15:02)
[2019-04-17] MEDS: LISINOPRIL 5 MG TAB PO SCH (18:24)
[2019-04-17] MEDS: POLYETHYLENE (MIRALAX) 17 GM PACK PO PRN (18:28)
[2019-04-17] MEDS: SENNA 8.6 MG TAB PO SCH (20:20)
[2019-04-17] MEDS: ZOLPIDEM TARTRATE 5 MG TAB PO SCH (20:20)
[2019-04-17] MEDS: FAMOTIDINE 20 MG TAB PO SCH (20:21)
[2019-04-17] MEDS: DOCUSATE SODIUM 100 MG CAP PO SCH (20:22)
[2019-04-17] MEDS: ASPIRIN 325 MG ECTAB PO SCH (20:23)
[2019-04-17] MEDS: DIGOXIN 0.125 MG TAB PO SCH (20:23)
[2019-04-17] MEDS: ATORVASTATIN 20 MG TAB PO SCH (20:23)
[2019-04-17] MEDS: SERTRALINE HCL 50 MG TABLET PO SCH (20:25)
[2019-04-18] MEDS: cefTRIAXone SODIUM 2,000 MG in DEXTROSE 5% 50 ML IV SCH (00:14)
[2019-04-18] MEDS: HydrALAZINE HCL 20 MG/ML VIAL IV PRN (02:04)
[2019-04-18] MEDS: SULFACETAMIDE SODIUM 10% OP SOLN 15 ML BTL OPL SCH ×6 (02:45→17:38)
[2019-04-18] MEDS: VANCOMYCIN HCL 1,000 MG in SODIUM CHLORIDE 0.9% 250 ML IV SCH (02:45)
[2019-04-18] MEDS: ACETAMINOPHEN 325 MG TAB PO SCH ×2 (05:52→14:12)
[2019-04-18 07:57] LABS: Hematocrit (blood only) 35.9 % (37-47); Hemoglobin 12.2 g/dL (12.0-16.0); Mean Corpuscular Hemoglobin 27.1 pg (25-34); Mean Corpuscular Volume 79.8 fL (80-100); Platelet Count 183 K/uL (130-400); RDW Coefficient of Variation 15.1 % (11.5-14.5); RDW Standard Deviation 43.9 fL (36.4-46.3)
[2019-04-18 08:04] LABS: BUN Creatinine Ratio 28.3 (10-20); Calcium 8.4 mg/dl (8.5-10.1); Est GFR (Non-African American) 74.2
[2019-04-18 08:09] LABS: Potassium 4.4 mmol/L (3.5-5.1)
[2019-04-18] MEDS: LISINOPRIL 5 MG TAB PO SCH (08:54)
[2019-04-18] MEDS: dilTIAZem HCL 240 MG CAPCR PO SCH (08:54)
[2019-04-18] MEDS: PANTOprazole 40 MG TAB PO SCH (08:54)
[2019-04-18] MEDS: LEVOTHYROXINE SODIUM 75 MCG TABLET PO SCH (08:54)
[2019-04-18] MEDS: PREGABALIN 50 MG CAP PO SCH (10:43)
--- NOTE | 2019-04-18 15:42 | Discharge Summary ---
Date of Service April 18, 2019 Admission HPI Per Admitting Provider The patient is a 83-year-old female with past medical history including hypertension, GERD, hypothyroidism, peripheral neuropathy, hyperlipidemia, depression and atrial fibrillation, who presents to the emergency department with 3 days of worsening left thigh discomfort, erythema and swelling of fluids. She reportedly tried to irrigate her left eye 3 days ago when initially became uncomfortable. Her symptoms also initially included left frontal area tenderness which has since resolved. She has some left-sided nasal congestion as well. Admission Exam Per Admitting Provider The patient is awake, alert and oriented 3, well developed and well nourished, lying in bed and in no acute distress. HEENT--PERRL, EOMI. left upper and lower lids with erythema and edema. Green discharge noted from inner canthus of left eye Neck--supple. No JVD. No bruits. Thyroid normal, trachea midline, no adenopathy. Heart--normal S1 and S2. No murmurs, rubs or gallops. Lungs--clear bilaterally, no respiratory distress, no accessory muscle use. Abdomen--normal bowel sounds and soft. Nontender. Nondistended, no hernias or masses, no organomegaly. Extremities--no cyanosis or clubbing. No edema. There are good distal pulses b/l. Dermatologic--normal skin turgor, normal color, no abnormal lymph nodes, no rash. Neurologic--cranial nerves II through XII grossly intact. Rheumatologic--normal range of motion. Psychiatric--normal affect. Principal Diagnosis Left Periorbital Cellulitis Discharge Exam General: Resting comfortably HEENT: NC/AT; R pupil slightly bigger than left (1 mm difference); No edema or erythema of left periorbital area noted; Extra ocular movements intact. Neck: Supple; right sided thyroid mass, will need to follow as outpatient. Cardiac: RRR Lungs: CTA bilaterally Abdomen: Bowel normoactive X 4; Nontender to palpation Extremities: Warm. No edema present Neuro: No focal weakness Skin: No rash Discharge Data Allergies Allergy/AdvReac Type Severity Reaction Status Date / Time oxycodone AdvReac Intermediate HALLUCINATI Verified 04/13/19 22:51 ONS morphine AdvReac Unknown DELIRIUM Verified 04/13/19 22:51 Consultations 04/14/19 00:02 ED Decision to Admit Stat 04/14/19 01:45 Consult Case Management - Discharge Planning Routine Consult Infectious Diseases Routine Ordered Studies 04/13/19 22:13 CT orbit BI w con Urgent 04/16/19 09:03 CT orbit BI w con Urgent Hospital Course (1) Cellulitis of left orbit: LEFT Periorbital Cellulitis May have been related to sinusitis based on initial symptoms; erythema and edema now improved. Pain also resolving. CT on admission concerning for preseptal cellulitis; repeat CT on 04/16 (due to worsening pain in left eye) showed preseptal cellulitis, no evidence of orbital cellulitis, but also with dacrocystitis. ID consulted, appreciate input. Was much improved after several days of receiving Rocephin and Vanco IV; convert to Doxy at discharge. Received Decadron IV on 04/16 and 04/17. Sulfacetamide drops q3hr while awake in left eye. Warm compresses; Tylenol 650 mg q8hr scheduled with Tramadol prn pain. Discussed case with Dr. So on 04/14, plan as above. Has an appointment with Maryanne Hayes - Dr. Bhakta ([place]) next month. (2) Dizziness: Developed dizziness over last 24 hours; likely orthostatic related to positional changes. Orthostatic vital signs were negative. Symptoms improved prior to discharge PT/OT - no therapy needs anticipated. Most recent TTE in Jun 2016 showed preserved EF, mild aortic regurg. Pacemaker interrogation was normal. 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 Recommend routine outpatient monitoring. (4) Atrial fibrillation with rapid ventricular response: Paced on monitor, rate controlled. Continued Digoxin 0.125 mg daily and Diltiazem 240 mg daily as prescribed. Pt. is not currently on anticoagulation therapy, previously on Coumadin. Follows with Dr. Lam. (5) Hypertension: BP has been elevated during this admission -- possibly related to pain/stress/steroid induced. Continued home Diltiazem as prescribed. Added Lisinopril 5 mg daily; f/u with PCP. (6) Hyperlipidemia LDL goal <70: Continued statin and aspirin as prescribed. (7) Peripheral neuropathy: Continued Pregabalin 100 mg BID. (8) Depression: Continued Sertraline 50 mg daily and Zolpidem 5 mg qhs. (9) Hypothyroidism: Continued Levothyroxine 75 mcg daily. Most recent TSH was 1.7 in Jun 2018. (10) GERD (gastroesophageal reflux disease): Protonix and Famotidine. (11) B12 deficiency: Continue monthly IM injection as outpatient. (12) DVT prophylaxis: Lovenox subQ q24hr. Discharged to home on 04/18/19. Total Time Total Time Spent Total Time Spent (In Minutes): >30 minutes Total Time Includes: Examination of the Patient, Discharge Planning, Medication Reconciliation, Communication With Other Providers and Other Discharge Plan Discharge Items Patient Disposition: Home - Self-Care Reason For Visit: PRESEPTAL CELLULITIS LEFT EYE Discharge Diagnosis: Preseptal Cellulitis Left Eye Condition: Good Discharge Goals: Decrease discomfort, Improve disease control, Improve function, Increase independence and Prevent disease Activity: As commented below Bathing: No limitations Exercise/Sports: Gradually increase as tolerated Non-emergency contact: Primary Care Provider and Sprayer Operator Call non-emergency contact if: you have any medication questions, your symptoms worsen, your pain is not controlled, your pain is worsening, you have a fever, your temperature is above 100.5, your wound has increased redness, your wound has increased drainage and your wound pain has increased Follow-up/Referrals: Kita Tanner DO [Physician] - 04/28/19 1:25 pm (Please, follow up at [facility] Infectious Disease Office with Dr. Anamaria Tanner on WednesdayApril 28 at 1:45 pm (arrive 1:25 pm). *The office is located in [address] [facility] [place]. This is the big building located next to this [facility]. If you need to change this appointment, call the office at [phone].) Edgar Fine PA-C [Primary Care Provider] - 04/25/19 10:00 am (Please, follow up with Edgar Fine PA-C on WednesdayApril 25 at 10:00 am. *If you need to change this appointment, call the office at [phone].) Diet: Heart Healthy Addtl Provider Instructions: 1. Cellulitis of Left Orbit * Please take Doxycycline 100 mg twice daily for a 14 day course. * Please continue Sulfacetamide drops in the left eye every 3 hours while awake. * Please take Tylenol 650 mg every 6-8 hours for pain control. * Please use warm compresses three times daily x 15 min * Please follow up with ophthalmology as scheduled in April. 2. Dizziness * PT/OT did not recommend further needs. * Please stand from a seated position very slowly to prevent dizziness/falling. * Drink plenty of fluids to avoid dehydration. 3. Hypertension * BP has been elevated during this admission. * Please continue home Diltiazem as prescribed. * Please take Lisinopril 5 mg daily. * You will need to discuss blood pressure management with your PCP. 4. Please schedule a follow up with PCP in 1-2 weeks to discuss this hospitalization. Prescriptions: New sulfacetamide sodium 10 % Drops 2 drp OPL Q3H 10 Days Qty: 5 RF: 0 doxycycline hyclate 100 mg tablet 100 mg PO BID 14 Days Qty: 28 RF: 0 lisinopril 5 mg tablet 5 mg PO DAILY Qty: 30 RF: 2 Continued atorvastatin 20 mg tablet 20 mg PO DAILY@2099 RF: 0 zolpidem 5 mg tablet 5 mg PO DAILY@2099 RF: 0 sertraline 50 mg tablet 50 mg PO DAILY@2099 RF: 0 docusate sodium 100 mg Tablet 200 mg PO DAILY@2099 RF: 0 cranberry 450 mg Tablet 450 mg PO DAILY@999 RF: 0 ibandronate [Boniva] 150 mg Tablet 150 mg PO MONTHLY RF: 0 cyanocobalamin (vitamin B-12) 1,000 mcg/mL Kit 1,000 mcg IM MONTHLY RF: 0 sennosides [senna] 8.6 mg Tablet 8.6 mg PO DAILY@2099 RF: 0 aspirin 325 mg Tablet 325 mg PO DAILY@2099 RF: 0 diltiazem HCl [Cardizem CD] 240 mg capsule,extended release 24hr 240 mg PO DAILY@999 RF: 0 famotidine [Pepcid] 40 mg tablet 40 mg PO DAILY@2099 RF: 0 omeprazole 40 mg capsule,delayed release(DR/EC) 40 mg PO DAILY@999 RF: 0 levothyroxine [Synthroid] 75 mcg tablet 75 mcg PO DAILY@999 RF: 0 pregabalin [Lyrica] 50 mg capsule 100 mg PO DAILY@999,2099 RF: 0 digoxin 125 mcg tablet 125 mcg PO DAILY@2099 RF: 0 Stand-Alone Forms: [facility] Discharge Orders: Discharge Order (Routine); Ordered 04/18/19 Ordered By: Sil Abad Admission Data Admit Date/Time: 04/14/19 00:45 Attending Provider: Sil Abad Admit Provider: Bonilla Renteria Primary Care Provider: Edgar Fine Other Providers: Kita Tanner Service: Medical Other Interventions: Discharge Summary Assessment (RN) Last Done: 04/18/19 17:40 Pending Studies at Discharge: No DC Date/Time DO NOT enter until pt leaves facility: 04/18/19 19:00 Supervising Physician Co-Signing Physician Notes PA Supervision Note: I personally saw and examined the patient. I verified all radford points and agree with ABBY Tate with the following exceptions and/or additions: Pt feelin gmuch better. No pain on movement of the left eye, no ophthalmoplegia but does have very slight anisocoria which may be baseline? No fevers, erythema is improved. VSS pupils with mild anisocoria as above, mild erythema of left lids, mild crusting of lashes, no chemosis or proptosis, EOMI without pain Stable for dc to home on po abx for left periorbital cellulitis
[2019-04-18] MEDS: ENOXAPARIN INJ 40 MG/0.4 ML SYR SQ SCH (15:43)
[2019-04-18] MEDS ORDERED: DOXYCYCLINE HYCLATE 100 MG CAP PO SCH (21:00)
[2019-04-19] MEDS ORDERED: VANCOMYCIN TROUGH ONE (09:30)
--- NOTE | 2019-04-25 05:57 | Coding Query ---
CODING QUERY To promote full compliance with coding requirements relating to patient care, provider participation is requested in all cases of director international uncertainty. Please assist us with the question(s) below: Coding Question: Throughout the chart, Orbital Cellulitis and Periorbital Cellulitis are documented. Please clarify below to the best of your knowledge as these code differently. Thank you so much for your help with this! ( ) Orbital Cellulitis, left eye (x) Periorbital Cellulitis, left eye ( ) Other, explain Thank you! Carla Waite Principal Diagnosis: "that condition established after study, to be chiefly responsible for occasioning the admission of the patient to the hospital for care." Co-Existing Principal Diagnosis: "when two or more diagnoses equally meet the criteria for principal diagnosis as determined by the circumstances of admission, diagnostic work up, and/or therapy provided, and the Alphabetic Index, Tabular List, or another coding guideline does not provide sequencing direction, any one of the diagnoses may be sequenced first." "When the physician has documented what appears to be a current diagnosis in the body of the record, but has not included the diagnosis in the final diagnostic statement, the physician should be asked whether the diagnosis should be added." (Source Coding [facility] 2 QTR90. p3-4) GLADIS
== END 2019-04-18 19:00 | disposition home or self-care (01) | DRG 603 ==
LOC: ED 21:23 → SUATTDRO 04-14 00:45 → 2W 04-14 00:45 → 4W 04-17 22:23

== ENCOUNTER 2024-02-21 14:39 | Inpatient (IN) ==
--- NOTE | 2024-02-21 15:32 | Emergency Department Note ---
Impression & Plan Respiratory failure, Hypoxia, Hypokalemia ED Provider Note NAME: CHARLES WONG AGE: 88 SEX: F : 1935 ARRIVES VIA: Ambulance INFORMANT: Patient, the patient's family ED PROVIDER(S): Tommy Whatley DO CHIEF COMPLAINT: Shortness of breath HPI: The patient is an 88-year-old female who presented to the emergency department for an evaluation of shortness of breath. The patient has been describing shoulder pain as well as difficulty breathing. Symptoms began over the last 24 hours. She states that she has been unable to lie flat and has been noticing some swelling in both legs. The patient denies having any nausea or vomiting. She was having significant shortness of breath and was placed on BiPAP prior to arrival. She denies having any noncompliance with her medications. She does have a history of atrial fibrillation. She does take blood thinners. ROS: See above HPI for pertinent positives & negatives. A total of 10 systems reviewed and were otherwise negative. PAST MEDICAL HISTORY: See Below PAST SURGICAL HISTORY: See Below FAMILY HISTORY: See Below SOCIAL HISTORY: See Below HOME MEDICATIONS: See Below ALLERGIES: See Below VITALS: See Below PHYSICAL EXAMINATION: GENERAL: The patient is awake and alert. She is very anxious. EYES: The conjunctivae are clear. The pupils are round and reactive. EARS, NOSE, MOUTH AND THROAT: The nose is without any evidence of any deformity. NECK: The neck is nontender and supple. RESPIRATORY: Diminished breath sounds are noted throughout. There is wheezing both upper lung madden. CARDIOVASCULAR: Irregular heart sounds were noted to auscultation. There is no definite murmur. GASTROINTESTINAL: The abdomen is soft. Abdomen is nontender. MUSCULOSKELETAL/EXTREMITIES: There is no evidence of gross deformity full range of motion is noted in the hips and shoulders. SKIN: Skin was warm and dry. Pedal edema was noted bilaterally. NEUROLOGIC: Patient is awake alert and oriented x3 MEDICAL DECISION MAKING: The patient is an 88-year-old female who presented to the emergency department for an evaluation of shortness of breath. The patient was treated with a DuoNeb prior to arrival. She was placed on BiPAP. I discussed the patient's laboratory and radiographic studies with her. No definite cause for her shortness of breath could be identified on her routine workup. For this reason CT angiography of the chest was obtained to rule out a pulmonary embolism. This also did not show the source of the patient's shortness of breath. Given her abnormal vital signs I did discuss her condition with the on-call [facility] hospitalist. She was treated with IV Lasix. She was feeling much better on supplemental oxygen. Triage Nursing notes reviewed. Prior medical records reviewed Vital Signs: reviewed and remarkable for hypertension tachypnea and hypoxia. Differential diagnosis: Reactive airway disease, pneumonia, pneumothorax, COPD, CHF, infections, cardiac ischemia, pulmonary embolism, musculoskeletal, gastrointestinal, as well as other pathologies. ER treatment provided: See below Diagnostics interpreted by me: ECG: EKG was obtained in the emergency department. My interpretation is ventricular paced beats noted. Underlying atrial fibrillation with T wave inversions and ST depressions were noted. This was diffuse. This was compared to a tracing from July 15, 2018. The ST and T wave abnormalities were present previously but appear to be increased compared to the previous tracing. Cardiac Monitoring: An order was placed for continuous cardiac monitoring. The monitor shows a rate of 73 bpm with sinus rhythm. Laboratory studies: As stated above and show below. Imaging studies: See below. Radiographic imaging was reviewed by myself Consultation(s): I discussed this case with Dr. Coreas who is on-call for the [facility] hospitalist group. 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) Cellulitis of left orbit (Acute) Abdominal pain (Acute) Stomach ulcer (Acute) GERD (gastroesophageal reflux disease) (Chronic) H/O cervical spine surgery (Chronic) "cervical decompression with evacuation of cervical epidural hematoma 09/22/2012" Atrial fibrillation with rapid ventricular response (Chronic) Atypical chest pain Bradycardia Precordial chest pain (Acute) Thoracic back pain (Acute) Vertigo (Acute) Weakness (Acute) Family History Other Family history non-contributory Social History Smoking Status: Never smoker Hx Alcohol Use: No Hx Substance Use: No Preferred Language: Persian Communication Ability: Effective 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 [employer] 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: No Beliefs That Will Affect Care: None marital status: / Current Living Situation: Other Current Living Situation Comment: W/ grandson per pt is 26 Feels Safe at Home: Yes Assistive Devices: Glasses Allergies Allergies Allergy/AdvReac Type Severity Reaction Status Date / Time oxycodone AdvReac Intermediate HALLUCINATI Verified 02/21/24 17:24 ONS morphine AdvReac Unknown DELIRIUM Verified 02/21/24 17:24 Home Meds Home Medications Medication Instructions Recorded Confirmed aspirin 325 mg tablet 325 mg PO DAILY@209905/06/18 02/21/24 famotidine 40 mg tablet (Pepcid) 40 mg PO DAILY@209905/06/18 02/21/24 levothyroxine 75 mcg tablet 75 mcg PO DAILY@99905/06/18 02/21/24 (Synthroid) omeprazole 40 mg capsule,delayed 40 mg PO DAILY@99905/06/18 02/21/24 release pregabalin 50 mg capsule (Lyrica) 100 mg PO DAILY@05/06/18 02/21/24 sennosides 8.6 mg tablet (senna) 8.6 mg PO Q2D 05/06/18 02/21/24 atorvastatin 20 mg tablet 20 mg PO DAILY@209911/16/18 02/21/24 docusate sodium 100 mg tablet 200 mg PO DAILY@209911/16/18 02/21/24 sertraline 50 mg tablet 50 mg PO DAILY@209911/16/18 02/21/24 zolpidem 5 mg tablet 5 mg PO DAILY@209911/16/18 02/21/24 cyanocobalamin (vitamin B-12) 1,000 mcg IM MONTHLY 04/13/19 02/21/24 1,000 mcg/mL injection kit donepezil 5 mg tablet 5 mg PO DAILY 02/09/22 02/21/24 chlorthalidone 25 mg tablet 25 mg PO DAILY 02/21/24 02/21/24 cranberry extract 500 mg tablet 1,000 mg PO DAILY 02/21/24 02/21/24 ferrous sulfate 325 mg (65 mg 325 mg PO BID 02/21/24 02/21/24 iron) tablet ibandronate 150 mg tablet 150 mg PO .MONTHLY 02/21/24 02/21/24 potassium chloride 10 mEq 10 meq PO DAILY 02/21/24 02/21/24 capsule,extended release Previous Rx's Medication Instructions Recorded diltiazem HCl 240 mg 240 mg PO QAM #90 caps 05/08/21 capsule,extended release 24 hr Results & Data (ED) Vital Signs Vital Signs - 24 hr 02/21/24 14:50 02/21/24 14:54 02/21/24 14:58 Temperature 36.9 C Temperature Source Oral Pulse Rate 73 72 75 Pulse Rate from SpO2 Sensor Respiratory Rate 24 41 H Respiratory Effort / Characteristics Labored Spontaneous Respiratory Depth Normal Normal Respiratory Pattern Tachypnea Blood Pressure 176/104 H Blood Pressure Mean 128 Pulse Oximetry 98 99 Oxygen Delivery Method BiPAP Oxygen Flow Rate Fraction of Inspired Oxygen 30 Sepsis New/Unexplained Change in Mental Status No Sepsis Action Taken by Nursing No Action Required Oxygen Flow Rate - Titration Pulse Oximetry Post Tiitration 02/21/24 15:00 02/21/24 15:21 02/21/24 15:56 Temperature Temperature Source Pulse Rate 69 Pulse Rate from SpO2 Sensor Respiratory Rate 22 Respiratory Effort / Characteristics Labored Respiratory Depth Respiratory Pattern Tachypnea Blood Pressure 180/91 H Blood Pressure Mean 141 Pulse Oximetry 100 99 Oxygen Delivery Method BiPAP BiPAP Oxygen Flow Rate Fraction of Inspired Oxygen Sepsis New/Unexplained Change in Mental Status Sepsis Action Taken by Nursing Oxygen Flow Rate - Titration Pulse Oximetry Post Tiitration 02/21/24 15:57 02/21/24 16:25 02/21/24 16:30 Temperature Temperature Source Pulse Rate 67 79 Pulse Rate from SpO2 Sensor 71 75 Respiratory Rate 22 17 Respiratory Effort / Characteristics Respiratory Depth Respiratory Pattern Blood Pressure 195/70 H 172/77 H Blood Pressure Mean 111 108 Pulse Oximetry 99 97 Oxygen Delivery Method Oxymask Oxymask Oxygen Flow Rate 4 97 Fraction of Inspired Oxygen Sepsis New/Unexplained Change in Mental Status Sepsis Action Taken by Nursing Oxygen Flow Rate - Titration 2 Pulse Oximetry Post Tiitration 02/21/24 17:03 02/21/24 17:30 02/21/24 17:57 Temperature Temperature Source Pulse Rate 73 70 69 Pulse Rate from SpO2 Sensor 70 74 73 Respiratory Rate 21 25 H 25 H Respiratory Effort / Characteristics Respiratory Depth Respiratory Pattern Blood Pressure 187/78 H 177/84 H 173/74 H Blood Pressure Mean 114 115 107 Pulse Oximetry 99 95 96 Oxygen Delivery Method Room Air Oxygen Flow Rate Fraction of Inspired Oxygen Sepsis New/Unexplained Change in Mental Status Sepsis Action Taken by Nursing Oxygen Flow Rate - Titration Pulse Oximetry Post Tiitration 02/21/24 18:06 02/21/24 18:50 Temperature Temperature Source Pulse Rate 73 Pulse Rate from SpO2 Sensor Respiratory Rate Respiratory Effort / Characteristics Respiratory Depth Respiratory Pattern Blood Pressure Blood Pressure Mean Pulse Oximetry 85 L Oxygen Delivery Method Oxymask Oxygen Flow Rate 0 Fraction of Inspired Oxygen Sepsis New/Unexplained Change in Mental Status Sepsis Action Taken by Nursing Oxygen Flow Rate - Titration 3 Pulse Oximetry Post Tiitration 98 Home Medications Current Medication List: was personally reviewed by me Laboratory Data Attestation: I reviewed the patient's lab results. 02/21/24 15:17 02/21/24 16:01 Lab Results 02/21/24 02/21/24 02/21/24 Range/Units 15:17 15:24 16:01 WBC 6.75 (4.8-10.8) K/ul RBC 4.89 (4.20-5.40) M/uL Hgb 14.2 (12.0-16.0) g/dl Hct 40.2 (37.0-47.0) % MCV 82.2 (80.0-100.0) fL MCH 29.0 (25.0-34.0) pg MCHC 35.3 (32.0-36.0) g/dL RDW Std Deviation 42.0 (36.4-46.3) fL RDW Coeff of Alfredo 14.0 (11.5-14.5) % Plt Count 111 L (130-400) K/uL MPV 12.8 H (9.4-12.4) fL Immature Gran % (Auto) 0.4 % Neut % (Auto) 63.4 % Lymph % (Auto) 27.9 % [place] % (Auto) 7.0 % Eos % (Auto) 0.6 % Baso % (Auto) 0.7 % Neut # (Auto) 4.28 (1.40-6.50) K/uL Lymph # (Auto) 1.88 (1.20-3.40) K/uL [place] # (Auto) 0.47 (0.11-0.59) K/uL Eos # (Auto) 0.04 (0.00-0.50) K/uL Baso # (Auto) 0.05 (0.00-0.20) K/uL Immature Gran # (Auto) 0.03 (0.01-0.20) K/uL Platelet Estimate Decreased L (Normal) PT 11.2 (9.0-12.0) Seconds INR 1.0 (0.9-1.1) APTT 24 (21-31) Seconds PTT Ratio 0.9 VBG pH 7.44 H (7.36-7.41) VBG pCO2 43 (38-50) mmHg VBG pO2 49 mmHg VBG HCO3 29 mmol/L VBG O2 Saturation 82.8 % VBG Base Excess 4.4 mEq/L Sodium 142 (136-145) mmol/L Potassium 3.0 L (3.5-5.1) mmol/L Chloride 104 (98-107) mmol/L Carbon Dioxide 29 (21-32) mmol/L Anion Gap 9 (3-11) BUN 21 (6-23) mg/dl Creatinine 0.74 (0.6-1.2) mg/dl Est Cr Clr Drug Dosing 48.4 ml/min Est GFR ( Amer) 84.4 ml/min Est GFR (Non-Af Amer) 72.8 ml/min BUN/Creatinine Ratio 28.4 H (10-20) Glucose 89 (70-99(Fasting)) mg/dl Calcium 9.5 (8.6-10.3) mg/dl Total Bilirubin 0.8 (0.2-1.0) mg/dl AST 19 (13-39) U/L ALT 10 (7-52) U/L Alkaline Phosphatase 74 (34-104) U/L Troponin I High Sens 10.6 (0-14) pg/ml B-Natriuretic Peptide 187 H (0-100) pg/ml Total Protein 6.4 (6.0-8.3) gm/dl Albumin 4.1 (3.4-5.0) gm/dl Globulin 2.3 L (2.5-4.0) gm/dl Albumin/Globulin Ratio 1.8 (0.9-2) Adenovirus (PCR) Not Detected (NotDetected) B. pertussis DNA (PCR) Not Detected (NotDetected) B.parapertussis DNA PCR Not Detected (NotDetected) C. pneumoniae DNA (PCR) Not Detected (NotDetected) Coronavirus OC43 (PCR) Not Detected (NotDetected) Coronavirus HKU1 (PCR) Not Detected (NotDetected) Coronavirus 229E (PCR) Not Detected (NotDetected) SARS-CoV-2 (PCR) Not Detected (NotDetected) Coronavirus NL63 (PCR) Not Detected (NotDetected) Human Metapneumovir PCR Not Detected (NotDetected) Influenza Type A (PCR) Not Detected (NotDetected) Influenza Type B (PCR) Not Detected (NotDetected) M. pneumoniae (PCR) Not Detected (NotDetected) Parainfluenza 1 (PCR) Not Detected (NotDetected) Parainfluenza 2 (PCR) Not Detected (NotDetected) Parainfluenza 3 (PCR) Not Detected (NotDetected) Parainfluenza 4 (PCR) Not Detected (NotDetected) RSV (PCR) Not Detected (NotDetected) Entero/Rhino (PCR) Not Detected (NotDetected) Administered Medications Discontinued Medications Furosemide (Furosemide 40 Mg/4 Ml Vial) 40 mg IV ONE ONE Stop: 02/21/24 18:44 Last Admin: 02/21/24 18:53 Dose: 40 mg Documented By: STEVEN Potassium Chloride (K Sukhi / Wtr) 10 meq in 100 mls @ 100 mls/hr IV Q1H ANDRA Stop: 02/21/24 18:59 Last Admin: 02/21/24 19:32 Dose: 100 mls/hr Documented By: Infusion: 02/21/24 19:21 Dose: Infused Documented By: Admin: 02/21/24 17:04 Dose: 100 mls/hr Documented By: CHOLO Ioversol (Optiray 320 125ml) 118 ml IV ONCE ONE Stop: 02/21/24 17:49 Last Admin: 02/21/24 17:48 Dose: 118 ml Documented By: JACOBY Potassium Chloride (Potassium Chloride 10 Meq Tabcr) 10 meq PO NOW STA Stop: 02/21/24 18:45 Last Admin: 02/21/24 18:53 Dose: 10 meq Documented By: STEVEN Imaging Data Attestation: I personally reviewed and interpreted this imaging study as follows: My Impression: 1 view chest x-ray was obtained in the emergency department. My interpretation is cardiomegaly, final report below. Radiologist's Impression: Chest X-Ray 02/21/24 15:08 XR chest 1V portable HISTORY: Shortness of breath. Chest pain, nonspecific COMPARISON: Chest 07/15/2018. FINDINGS: Rotated study. No pneumothorax. The heart is mildly enlarged. Trace left pleural effusion persists. There is mild central pulmonary vascular congestion without overt edema. Left basilar linear density favors subsegmental atelectasis or scarring. The left-sided single lead pacemaker. Calcifications within the aortic knob. IMPRESSION: 1. Cardiomegaly with mild congestive change. 2. Chronic trace left pleural effusion again noted. ACT 112: Negative or not required by law. Electronically signed by: Reji Olsen M.D. 02/21/2024 3:44 PM Chest CTA 02/21/24 17:06 CT angio chest PE protocol CLINICAL HISTORY: PE TECHNIQUE: Multidetector row helical CT of the chest was performed with angiographic protocol. Coronal and sagittal reformations were obtained. Coronal and sagittal MIPS were obtained from the axial data set and were submitted for review. Automated dose lowering techniques and/or adjustment according to patient size were utilized for this exam. Comparison: Comparison is made to CT chest 03/12/2016 FINDINGS: Lungs and pleura: Atelectasis versus scarring is seen in the dependent portions of the lungs. Heart and pericardium: Cardiomegaly is seen with biatrial enlargement. Vessels: No evidence of pulmonary embolism. The pulmonary trunk measures 36 mm in diameter. Mediastinum and nilda: Unremarkable. Chest wall and lower neck: Small thyroid nodules are noted which do not require follow-up by ACR criteria. Abdomen: Unremarkable. Bones: Degenerative changes in the thoracic spine. IMPRESSION: 1. No acute abnormality and in particular no evidence of pulmonary embolus. 2. Pulmonary scarring versus atelectasis is seen. Cardiac megaly and pulmonary hypertension. ACT 112: Negative or not required by law. Electronically signed by: Ronald Castanon M.D. 02/21/2024 6:17 PM Discharge Plan Visit Data Chief Complaint: Shortness of Breath/Dyspnea Stated Complaint: SOB ED Provider: Tommy Whatley Discharge Problem: Respiratory failure, Hypoxia, Hypokalemia Patient Disposition: Being Evaluated by Hospitalist Forms Stand Alone Forms: [facility] Prescriptions Prescriptions: No Action diltiazem HCl 240 mg capsule,extended release 24hr 240 mg PO QAM Qty: 90 3RF donepezil 5 mg tablet 5 mg PO DAILY atorvastatin 20 mg tablet 20 mg PO DAILY@2100 zolpidem 5 mg tablet 5 mg PO DAILY@2100 sertraline 50 mg tablet 50 mg PO DAILY@2100 docusate sodium 100 mg Tablet 200 mg PO DAILY@2100 cyanocobalamin (vitamin B-12) 1,000 mcg/mL Kit 1,000 mcg IM MONTHLY sennosides [senna] 8.6 mg Tablet 8.6 mg PO Q2D aspirin 325 mg Tablet 325 mg PO DAILY@2100 famotidine [Pepcid] 40 mg tablet 40 mg PO DAILY@2100 omeprazole 40 mg capsule,delayed release(DR/EC) 40 mg PO DAILY@1000 levothyroxine [Synthroid] 75 mcg tablet 75 mcg PO DAILY@1000 pregabalin [Lyrica] 50 mg capsule 100 mg PO DAILY@1000,2100 cranberry extract 500 mg Tablet 1,000 mg PO DAILY Rx Instructions: administer with meals chlorthalidone 25 mg tablet 25 mg PO DAILY ibandronate 150 mg tablet 150 mg PO .MONTHLY potassium chloride 10 mEq capsule, extended release 10 meq PO DAILY ferrous sulfate 325 mg (65 mg iron) tablet 325 mg PO BID Referrals Referrals: Edgar Fine, PAGeri [Primary Care Provider] - Discharge Problem: Respiratory failure Qualifiers: Chronicity: unspecified Respiratory failure complication: hypoxia Qualified Code(s): J96.91 - Respiratory failure, unspecified with hypoxia
--- NOTE | 2024-02-21 15:45 | XRay Report ---
XR chest 1V portable HISTORY: Shortness of breath. Chest pain, nonspecific COMPARISON: Chest 07/15/2018. FINDINGS: Rotated study. No pneumothorax. The heart is mildly enlarged. Trace left pleural effusion p ersists. There is mild central pulmonary vascular congestion without overt edema. Left basilar linear density favors subsegmental atelectasis or scarring. The left-sided single lead pacemaker. Calcifica tions within the aortic knob. IMPRESSION: 1. Cardiomegaly with mild congestive change. 2. Chronic trace left pleural effusion again noted. ACT 112: Negative or not required by law. Electronically signed by: Reji Olsen M.D. 02/21/2024 3:44 PM
[2024-02-21 15:56] LABS: Partial Thromboplastin Ratio 0.9; Partial Thromboplastin Time 24 Seconds (21-31); Prothrombin Time 11.2 Seconds (9.0-12.0)
[2024-02-21 16:21] LABS: Base Excess VBG 4.4 mEq/L; HCO3 VBG 29 mmol/L; Oxygen Saturation VBG 82.8 %; PCO2 VBG 43 mmHg (38-50); PO2 VBG 49 mmHg; pH VBG 7.44 (7.36-7.41)
[2024-02-21 16:32] LABS: Adenovirus PCR Not Detected (NotDetected); Bordetella parapertussis PCR Not Detected (NotDetected); Bordetella pertussis PCR Not Detected (NotDetected); Chlamydia pneumoniae PCR Not Detected (NotDetected); Coronavirus 229E PCR Not Detected (NotDetected); Coronavirus CoV-2 (COVID19)PCR Not Detected (NotDetected); Coronavirus HKU1 PCR Not Detected (NotDetected); Coronavirus NL63 PCR Not Detected (NotDetected); Coronavirus OC43PCR Not Detected (NotDetected); Human Metapneumovirus PCR Not Detected (NotDetected); Influenza A PCR Not Detected (NotDetected); Influenza B PCR Not Detected (NotDetected); Mycoplasma pneumoniae PCR Not Detected (NotDetected); Parainfluenza Virus 1 PCR Not Detected (NotDetected); Parainfluenza Virus 2 PCR Not Detected (NotDetected); Parainfluenza Virus 3 PCR Not Detected (NotDetected); Parainfluenza Virus 4 PCR Not Detected (NotDetected); Respiratory Syncytial VirusPCR Not Detected (NotDetected); Rhinovirus/Enterovirus PCR Not Detected (NotDetected)
[2024-02-21 16:36] LABS: Basophils # (auto) 0.05 K/uL (0.00-0.20); Basophils % (auto) 0.7 %; Eosinophils # (auto) 0.04 K/uL (0.00-0.50); Eosinophils % (auto) 0.6 %; Hematocrit (blood only) 40.2 % (37.0-47.0); Hemoglobin 14.2 g/dl (12.0-16.0); Immature Granulocytes # (auto) 0.03 K/uL (0.01-0.20); Immature Granulocytes % (auto) 0.4 %; Lymphocytes # (auto) 1.88 K/uL (1.20-3.40); Lymphocytes % (auto) 27.9 %; Mean Corpuscular Hgb Conc 35.3 g/dL (32.0-36.0); Mean Corpuscular Volume 82.2 fL (80.0-100.0); Mean Platelet Volume 12.8 fL (9.4-12.4); Monocytes # (auto) 0.47 K/uL (0.11-0.59); Neutrophils # (auto) 4.28 K/uL (1.40-6.50); Neutrophils % (auto) 63.4 %; Platelet Count 111 K/uL (130-400); Platelet Estimate Decreased (Normal); Red Blood Count 4.89 M/uL (4.20-5.40); White Blood Count 6.75 K/ul (4.8-10.8)
[2024-02-21 16:47] LABS: Albumin Globulin Ratio 1.8 (0.9-2); Albumin Level 4.1 gm/dl (3.4-5.0); BUN Creatinine Ratio 28.4 (10-20); Bilirubin,Total 0.8 mg/dl (0.2-1.0); Calcium 9.5 mg/dl (8.6-10.3); Creatinine Clr Calc Pharmacy 48.4 ml/min; Est GFR (African American) 84.4 ml/min; Est GFR (Non-African American) 72.8 ml/min; Globulin 2.3 gm/dl (2.5-4.0); Total Protein 6.4 gm/dl (6.0-8.3)
[2024-02-21 16:53] LABS: Troponin I High Sensitivity 10.6 pg/ml (0-14)
[2024-02-21] MEDS: POTASSIUM CHLORIDE / WTR 10 MEQ/100 ML PLCT IV SCH (17:04)
[2024-02-21] MEDS: OPTIRAY 320 125ml IV ONE (17:48)
--- NOTE | 2024-02-21 18:19 | CT Scan Report ---
CT angio chest PE protocol CLINICAL HISTORY: PE TECHNIQUE: Multidetector row helical CT of the chest was performed with angiographic protocol. Ramírez l and sagittal reformations were obtained. Coronal and sagittal MIPS were obtained from the axial sharon a set and were submitted for review. Automated dose lowering techniques and/or adjustment according to patient size were utilized for this exam. Comparison: Comparison is made to CT chest 03/12/2016 FINDINGS: Lungs and pleura: Atelectasis versus scarring is seen in the dependent portions of the lungs. Heart and pericardium: Cardiomegaly is seen with biatrial enlargement. Vessels: No evidence of pulmonary embolism. The pulmonary trunk measures 36 mm in diameter. Mediastinum and nilda: Unremarkable. Chest wall and lower neck: Small thyroid nodules are noted which do not require follow-up by ACR car almanzar. Abdomen: Unremarkable. Bones: Degenerative changes in the thoracic spine. IMPRESSION: 1. No acute abnormality and in particular no evidence of pulmonary embolus. 2. Pulmonary scarring versus atelectasis is seen. Cardiac megaly and pulmonary hypertension. ACT 112: Negative or not required by law. Electronically signed by: Ronald Castanon M.D. 02/21/2024 6:17 PM
[2024-02-21] MEDS: FUROSEMIDE 40 MG/4 ML VIAL IV ONE (18:53)
[2024-02-21] MEDS: POTASSIUM CHLORIDE 10 MEQ TABCR PO STA (18:53)
[2024-02-21] MEDS ORDERED: POLYETHYLENE (MIRALAX) 17 GM PACK PO PRN (19:38)
[2024-02-21] MEDS ORDERED: ALUMINUM/MAGNESIUM SUSP 30 ML UDC PO PRN (19:38)
[2024-02-21] MEDS ORDERED: ONDANSETRON INJ 2 MG/ML 2 ML VIAL IV PRN (19:38)
[2024-02-21] MEDS ORDERED: ACETAMINOPHEN 325 MG TAB PO PRN (19:38)
--- NOTE | 2024-02-21 19:52 | History & Physical Report ---
Date of Service February 21, 2024 Assessment & Plan (1) Acute and chronic respiratory failure with hypoxia: Plan: acute respiratory failure , unclear etiology possible CHF exacerbation or bronchial spasm, patient does not have a history of CHF or asthma or COPD she reports left leg swelling , no weight gain will continue IV Lasix IV steroids, nebs as needed Oxygen supplementation Obtain troponin Obtain echocardiogram Consult rn diabetes educator Consult pulmonology (2) Hypokalemia: Plan: potassium 3.0 Supplement Obtain magnesium level (3) Hypothyroidism: Plan: Continue home dose of Synthroid (4) Atrial fibrillation: Plan: Patient in permanent A-fib, she takes aspirin, no anticoagulation Continue to monitor on telemetry (5) Depression: Plan: Continue home dose of sertraline 50 mg daily (6) Hypertension: Plan: Patient is hypertensive in the emergency room She did not take her blood pressure medicine today Will start Cardizem 240 mg daily (7) Hyperlipidemia LDL goal <70: Plan: She is on statins History of Present Illness Chief Complaint: hypoxia Primary Care Provider: Edgar Fine 88-year-old female who presented to the emergency department for an evaluation of shortness of breath. The patient has been describing shoulder pain as well as difficulty breathing. Symptoms began over the last 24 hours. She states that she has been unable to lie flat and has been noticing some swelling in both legs. The patient denies having any nausea or vomiting. She was having significant shortness of breath and was placed on BiPAP prior to arrival. She denies having any noncompliance with her medications. She does have a history of atrial fibrillation. She takes ASA, she was treated with nebs, she is currently on Ventimask , reports feeling better, received IV Lasix, as per family she has a lot of wheezing at home and while transported to ER. Currently she has no wheezing or cough, no chest pain, no SOB, reports having chills, no pneumonia on CT, no PE, has pulmonary scarring vs atelectasis, EKG Atrial fibrillation with frequent ventricular-paced complexes ST & Marked T wave abnormality consider anterolateral ischemia Prolonged QT Abnormal ECG Allergies Allergy/AdvReac Type Severity Reaction Status Date / Time oxycodone AdvReac Intermediate HALLUCINATI Verified 02/21/24 17:24 ONS morphine AdvReac Unknown DELIRIUM Verified 02/21/24 17:24 Home Medications Medication Instructions Recorded Confirmed Type aspirin 325 mg tablet 325 mg PO DAILY@2100 09/14/18 07/01/24 History famotidine 40 mg tablet (Pepcid) 40 mg PO DAILY@209905/06/18 02/21/24 History levothyroxine 75 mcg tablet 75 mcg PO DAILY@1000 05/06/18 02/21/24 History (Synthroid) omeprazole 40 mg capsule,delayed 40 mg PO DAILY@1000 05/06/18 02/21/24 History release pregabalin 50 mg capsule (Lyrica) 100 mg PO DAILY@1000,209905/06/18 02/21/24 History sennosides 8.6 mg tablet (senna) 8.6 mg PO Q2D 05/06/18 02/21/24 History atorvastatin 20 mg tablet 20 mg PO DAILY@209911/16/18 02/21/24 History docusate sodium 100 mg tablet 200 mg PO DAILY@209911/16/18 02/21/24 History sertraline 50 mg tablet 50 mg PO DAILY@209911/16/18 02/21/24 History zolpidem 5 mg tablet 5 mg PO DAILY@209911/16/18 02/21/24 History cyanocobalamin (vitamin B-12) 1,000 mcg IM MONTHLY 04/13/19 02/21/24 History 1,000 mcg/mL injection kit diltiazem HCl 240 mg 240 mg PO QA #90 caps 05/08/21 02/21/24 Rx capsule,extended release 24 hr donepezil 5 mg tablet 5 mg PO DAILY 02/09/22 02/21/24 History chlorthalidone 25 mg tablet 25 mg PO DAILY 02/21/24 02/21/24 History cranberry extract 500 mg tablet 1,000 mg PO DAILY 02/21/24 02/21/24 History ferrous sulfate 325 mg (65 mg 325 mg PO BID 02/21/24 02/21/24 History iron) tablet ibandronate 150 mg tablet 150 mg PO .MONTHLY 02/21/24 02/21/24 History potassium chloride 10 mEq 10 meq PO DAILY 02/21/24 02/21/24 History capsule,extended release Past Med/Surg History Problem List (Updated 02/21/24 @ 19:57 by Kayla Coreas MD) Atrial fibrillation Acute and chronic respiratory failure with hypoxia Hypokalemia (Acute) Hypoxia (Acute) Respiratory failure (Acute) Anticoagulation therapy not indicated Dizziness Hypothyroidism DVT prophylaxis Periorbital cellulitis of left eye Insomnia Depression (Chronic) B12 deficiency Peripheral neuropathy (Chronic) Hypertension (Chronic) Hyperlipidemia LDL goal <70 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) Cellulitis of left orbit (Acute) Abdominal pain (Acute) Stomach ulcer (Acute) GERD (gastroesophageal reflux disease) (Chronic) H/O cervical spine surgery (Chronic) "cervical decompression with evacuation of cervical epidural hematoma 09/22/2012" Atrial fibrillation with rapid ventricular response (Chronic) Atypical chest pain Bradycardia Precordial chest pain (Acute) Thoracic back pain (Acute) Vertigo (Acute) Weakness (Acute) Family History Other Family history non-contributory Social History Smoking Status: Never smoker Hx Alcohol Use: No Hx Substance Use: No Preferred Language: Hungarian Communication Ability: Effective Loan Clerk Required: No Beliefs That Will Affect Care: None marital status: / Current Living Situation: Other Current Living Situation Comment: W/ grandson per pt is 26 Feels Safe at Home: Yes Assistive Devices: Glasses Results & Data Results & Data Vital Signs (Past 12 Hours) Vital Signs Temp Pulse Resp BP Pulse Ox O2 Del Method O2 Flow Rate 02/21/24 18:50 73 02/21/24 18:06 85 L Oxymask 0 02/21/24 17:57 69 25 H 173/74 H 96 02/21/24 17:30 70 25 H 177/84 H 95 Room Air 02/21/24 17:03 73 21 187/78 H 99 02/21/24 16:30 79 17 172/77 H 97 02/21/24 16:25 Oxymask 97 02/21/24 15:57 67 22 195/70 H 99 Oxymask 4 02/21/24 15:56 69 22 180/91 H 99 02/21/24 15:21 100 BiPAP 02/21/24 15:00 BiPAP 02/21/24 14:58 75 02/21/24 14:54 72 41 H 99 02/21/24 14:50 36.9 C 73 24 176/104 H 98 BiPAP FiO2 02/21/24 18:50 02/21/24 18:06 02/21/24 17:57 02/21/24 17:30 02/21/24 17:03 02/21/24 16:30 02/21/24 16:25 02/21/24 15:57 02/21/24 15:56 02/21/24 15:21 02/21/24 15:00 02/21/24 14:58 02/21/24 14:54 30 02/21/24 14:50 Laboratory Results Abnormal lab results 02/21/24 02/21/24 Range/Units 15:17 16:01 Plt Count 111 L (130-400) K/uL MPV 12.8 H (9.4-12.4) fL Platelet Estimate Decreased L (Normal) VBG pH 7.44 H (7.36-7.41) Potassium 3.0 L (3.5-5.1) mmol/L BUN/Creatinine Ratio 28.4 H (10-20) B-Natriuretic Peptide 187 H (0-100) pg/ml Globulin 2.3 L (2.5-4.0) gm/dl Diagnostic Findings Chest X-Ray 02/21/24 15:08 XR chest 1V portable HISTORY: Shortness of breath. Chest pain, nonspecific COMPARISON: Chest 07/15/2018. FINDINGS: Rotated study. No pneumothorax. The heart is mildly enlarged. Trace left pleural effusion persists. There is mild central pulmonary vascular congestion without overt edema. Left basilar linear density favors subsegmental atelectasis or scarring. The left-sided single lead pacemaker. Calcifications within the aortic knob. IMPRESSION: 1. Cardiomegaly with mild congestive change. 2. Chronic trace left pleural effusion again noted. ACT 112: Negative or not required by law. Electronically signed by: Reji Olsen M.D. 02/21/2024 3:44 PM Chest CTA 02/21/24 17:06 CT angio chest PE protocol CLINICAL HISTORY: PE TECHNIQUE: Multidetector row helical CT of the chest was performed with angiographic protocol. Coronal and sagittal reformations were obtained. Coronal and sagittal MIPS were obtained from the axial data set and were submitted for review. Automated dose lowering techniques and/or adjustment according to patient size were utilized for this exam. Comparison: Comparison is made to CT chest 03/12/2016 FINDINGS: Lungs and pleura: Atelectasis versus scarring is seen in the dependent portions of the lungs. Heart and pericardium: Cardiomegaly is seen with biatrial enlargement. Vessels: No evidence of pulmonary embolism. The pulmonary trunk measures 36 mm in diameter. Mediastinum and nilda: Unremarkable. Chest wall and lower neck: Small thyroid nodules are noted which do not require follow-up by ACR criteria. Abdomen: Unremarkable. Bones: Degenerative changes in the thoracic spine. IMPRESSION: 1. No acute abnormality and in particular no evidence of pulmonary embolus. 2. Pulmonary scarring versus atelectasis is seen. Cardiac megaly and pulmonary hypertension. ACT 112: Negative or not required by law. Electronically signed by: Ronald Castanon M.D. 02/21/2024 6:17 PM PG Care Time/CCT Total # of Minutes Spent Total Time Spent with Patient: Total time spent is greater than 50% in coordination of care (as documented) at patient's floor/unit and/or counseling patient: Coding Level of Care Code 24449 INT INP/OBS CARE 3/75MIN Diagnoses Acute and chronic respiratory failure with hypoxia J96.21 Hypokalemia E87.6 Hypothyroidism E03.9 Atrial fibrillation I48.91 Depression F32.9 Primary hypertension I10 Hypertension type: primary hypertension Hyperlipidemia LDL goal <70 E78.5 (6) Hypertension Hypertension type: primary hypertension Qualified Code(s): I10 - Essential (primary) hypertension
[2024-02-21] MEDS: ASPIRIN 81 MG CHEW PO STA (20:27)
[2024-02-21] MEDS: methylPREDNISolone 40 MG in SYRINGE 0 ML IV SCH (20:28)
[2024-02-21 22:02] LABS: Troponin I High Sensitivity 10.2 pg/ml (0-14)
[2024-02-21] MEDS ORDERED: ALBUT/IPRATROP 3MG/0.5MG NEB 3 ML VIAL NEB PRN (22:43)
[2024-02-21] MEDS ORDERED: NON-FORMULARY MEDICATION (Cyanocobalamin (Vitamin B-12) 1,000 mcg/mL Kit) IM SCH (22:43)
[2024-02-21 23:06] LABS: Magnesium 1.1 mg/dl (1.7-2.4)
[2024-02-21] MEDS: ATORVASTATIN 20 MG TAB PO SCH (23:23)
[2024-02-21] MEDS: PREGABALIN 100 MG CAP PO SCH (23:24)
[2024-02-21] MEDS: HEPARIN SOD 5,000 UNIT/0.5 ML VIAL SQ SCH (23:24)
[2024-02-21] MEDS: DOCUSATE SODIUM 100 MG CAP PO SCH (23:24)
[2024-02-21] MEDS: FAMOTIDINE 40 MG TABLET PO SCH (23:24)
[2024-02-21] MEDS: FERROUS SULFATE 325 MG TAB PO SCH (23:24)
[2024-02-21] MEDS: SERTRALINE HCL 50 MG TABLET PO SCH (23:24)
[2024-02-21] MEDS: ZOLPIDEM TARTRATE 5 MG TAB PO SCH (23:30)
[2024-02-21] MEDS: dilTIAZem HCL 240 MG CAPCR PO SCH (23:32)
[2024-02-21 23:45] LABS: Thyroid Stimulating Hormone 3.923 uIu/ml (0.300-4.500)
[2024-02-22 06:39] LABS: Basophils # (auto) 0.01 K/uL (0.00-0.20); Basophils % (auto) 0.2 %; Hematocrit (blood only) 43.2 % (37.0-47.0); Immature Granulocytes # (auto) 0.02 K/uL (0.01-0.20); Immature Granulocytes % (auto) 0.3 %; Lymphocytes % (auto) 14.9 %; Mean Corpuscular Hemoglobin 28.2 pg (25.0-34.0); Mean Corpuscular Hgb Conc 34.7 g/dL (32.0-36.0); Mean Corpuscular Volume 81.4 fL (80.0-100.0); Mean Platelet Volume 12.7 fL (9.4-12.4); Monocytes # (auto) 0.11 K/uL (0.11-0.59); Monocytes % (auto) 1.8 %; Neutrophils # (auto) 5.02 K/uL (1.40-6.50); Neutrophils % (auto) 82.8 %; Platelet Count 140 K/uL (130-400); RDW Coefficient of Variation 13.8 % (11.5-14.5); RDW Standard Deviation 40.4 fL (36.4-46.3); Red Blood Count 5.31 M/uL (4.20-5.40); White Blood Count 6.06 K/ul (4.8-10.8)
[2024-02-22 07:05] LABS: Calcium 9.1 mg/dl (8.6-10.3); Magnesium 1.5 mg/dl (1.7-2.4)
[2024-02-22 07:08] LABS: Troponin I High Sensitivity 29.2 pg/ml (0-14)
[2024-02-22 07:13] LABS: BUN Creatinine Ratio 22.4 (10-20); Creatinine Clr Calc Pharmacy 41.2 ml/min; Est GFR (African American) 81.7 ml/min; Est GFR (Non-African American) 70.5 ml/min
[2024-02-22] MEDS ORDERED: POTASSIUM CHLORIDE 10 MEQ TABCR PO SCH (09:00)
[2024-02-22] MEDS: MAGNESIUM SULFATE / D5W 1 GM/100 ML BAG IV SCH (09:12)
[2024-02-22] MEDS: DONEPEZIL HCL 5 MG TAB PO SCH (09:18)
[2024-02-22] MEDS: PANTOprazole 40 MG TAB PO SCH (09:18)
[2024-02-22] MEDS: LEVOTHYROXINE SODIUM 75 MCG TABLET PO SCH (09:19)
[2024-02-22] MEDS: SENNA 8.6 MG TAB PO SCH (09:19)
[2024-02-22] MEDS: FUROSEMIDE INJ 20 MG/2 ML VIAL IV SCH (09:22)
[2024-02-22] MEDS: POTASSIUM CHLORIDE CRTAB 20 MEQ TABCR PO SCH (09:47)
--- NOTE | 2024-02-22 10:32 | Pulmonary Consultation ---
Date of Consultation February 22, 2024 Assessment & Plan (1) Dyspnea: Plan Impression: 88-year-old female who admitted with shortness of breath. She apparently required BiPAP and oxygen by EMS but has been on room air throughout her hospitalization. Requiring the patient she does not report significant respiratory difficulties. Unclear if this may have been related to hypertensive urgency and a cardiac evaluation is underway. Her CT scan is unrevealing. Recommendations: 1. Dyspnea: Agree with workup as indicated by hospitalist with echocardiogram and potential diuretics. Would pursue aggressive blood pressure control trying to maintain systolic blood pressure less than 125 and diastolic blood pressure less than 75. Diuretics are deferred to the patient's primary provider. 2. No indication for systemic steroids and these will be discontinued. Do not anticipate the patient will need inhaled or nebulized bronchodilators but these can be used for symptomatic benefit if needed. 3. Patient's hypoxemia if present has resolved. No indication for additional testing monitoring at this point in time. The patient's pulmonary issues appear to have resolved. Pulmonary will sign off. Feel free to contact us with questions or concerns History of Present Illness Attending Physician: Roberto Laura MD History of Present Illness Asked by hospitalist to evaluate this patient with hypoxemia. History is obtained from discussion with the patient as well as review the electronic medical record. Patient is an 88-year-old non-smoking female who was admitted to the hospital with a variety of complaints. She noted some swelling in her legs. She was reportedly hypoxemic and was placed on BiPAP by EMS however the patient is on room air throughout her hospitalization. She states that she does not really have shortness of breath. She denies coughing sputum production or wheezing. She ambulates with the assistance of a walker. She denies chest pain or palpitations. She does not report fevers chills or night sweats. Allergies Allergy/AdvReac Type Severity Reaction Status Date / Time oxycodone AdvReac Intermediate HALLUCINATI Verified 02/21/24 17:24 ONS morphine AdvReac Unknown DELIRIUM Verified 02/21/24 17:24 Home Medications Medication Instructions Recorded Confirmed Type aspirin 325 mg tablet 325 mg PO DAILY@209905/06/18 02/21/24 History famotidine 40 mg tablet (Pepcid) 40 mg PO DAILY@209905/06/18 02/21/24 History levothyroxine 75 mcg tablet 75 mcg PO DAILY@1000 05/06/18 02/21/24 History (Synthroid) omeprazole 40 mg capsule,delayed 40 mg PO DAILY@1000 05/06/18 02/21/24 History release pregabalin 50 mg capsule (Lyrica) 100 mg PO DAILY@1000,209905/06/18 02/21/24 History sennosides 8.6 mg tablet (senna) 8.6 mg PO Q2D 05/06/18 02/21/24 History atorvastatin 20 mg tablet 20 mg PO DAILY@209911/16/18 02/21/24 History docusate sodium 100 mg tablet 200 mg PO DAILY@209911/16/18 02/21/24 History sertraline 50 mg tablet 50 mg PO DAILY@209911/16/18 02/21/24 History zolpidem 5 mg tablet 5 mg PO DAILY@209911/16/18 02/21/24 History cyanocobalamin (vitamin B-12) 1,000 mcg IM MONTHLY 04/13/19 02/21/24 History 1,000 mcg/mL injection kit diltiazem HCl 240 mg 240 mg PO QAM #90 caps 05/08/21 02/21/24 Rx capsule,extended release 24 hr donepezil 5 mg tablet 5 mg PO DAILY 02/09/22 02/21/24 History chlorthalidone 25 mg tablet 25 mg PO DAILY 02/21/24 02/21/24 History cranberry extract 500 mg tablet 1,000 mg PO DAILY 02/21/24 02/21/24 History ferrous sulfate 325 mg (65 mg 325 mg PO BID 02/21/24 02/21/24 History iron) tablet ibandronate 150 mg tablet 150 mg PO .MONTHLY 02/21/24 02/21/24 History potassium chloride 10 mEq 10 meq PO DAILY 02/21/24 02/21/24 History capsule,extended release Patient History Family History Other Family history non-contributory Social History Smoking Status: Never smoker Do You Dip or Chew Tobacco: No; Hx Alcohol Use: No Hx Substance Use: No Preferred Language: Maori Communication Ability: Effective Stem Setter Required: No Beliefs That Will Affect Care: None marital status: / Current Living Situation: Spouse Current Living Situation Comment: Zaid Garcia Feels Safe at Home: Yes Assistive Devices: Cane, Denture - Upper, Denture - Lower and Walker Review of Systems Review of Systems: Please refer to admission H&P. No additions or deletions Physical Exam Constitutional: WD/WN, vitals as above Neck: trachea midline, no thyromegaly Respiratory: normal respiratory effort, lungs clear to auscultation Cardiovascular: RRR, no murmur, no edema Gastrointestinal (Abdomen): normal bowel sounds, soft, nontender, no hepatosplenomegaly Musculoskeletal: Extremities: extremities normal to inspection Skin: no rashes, warm and dry Neurologic: Nonfocal exam Lymphatic: no cervical lymphadenopathy Results & Data Results & Data Vital Signs (Past 12 Hours) Vital Signs Temp Pulse Pulse Resp BP BP Pulse Ox 02/22/24 09:25 36.5 C 90 17 149/79 H 100 02/22/24 07:48 02/22/24 07:28 36.5 C 80 18 177/73 H 93 02/22/24 03:11 36.5 C 74 18 177/73 H 95 02/21/24 23:08 36.6 C 87 16 204/76 H 207/68 H 96 02/21/24 22:00 84 O2 Del Method 02/22/24 09:25 Room Air 02/22/24 07:48 Room Air 02/22/24 07:28 Room Air 02/22/24 03:11 Room Air 02/21/24 23:08 Room Air 02/21/24 22:00 Critical Care Results & Data Vital Signs (Past 12 Hours) Vital Signs Temp Pulse Pulse Resp BP BP Pulse Ox 02/22/24 10:09 84 02/22/24 09:25 36.5 C 90 17 149/79 H 100 02/22/24 07:48 02/22/24 07:28 36.5 C 80 18 177/73 H 93 02/22/24 03:11 36.5 C 74 18 177/73 H 95 02/21/24 23:08 36.6 C 87 16 204/76 H 207/68 H 96 O2 Del Method 02/22/24 10:09 02/22/24 09:25 Room Air 02/22/24 07:48 Room Air 02/22/24 07:28 Room Air 02/22/24 03:11 Room Air 02/21/24 23:08 Room Air Lab & Micro Results (Past 24 Hours) RBC 5.31 M/uL (4.20-5.40) 02/22/24 WBC 6.06 K/ul (4.8-10.8) 02/22/24 Hgb 15.0 g/dl (12.0-16.0) 02/22/24 Hct 43.2 % (37.0-47.0) 02/22/24 MCV 81.4 fL (80.0-100.0) 02/22/24 MCH 28.2 pg (25.0-34.0) 02/22/24 MCHC 34.7 g/dL (32.0-36.0) 02/22/24 RDW Standard Deviation 40.4 fL (36.4-46.3) 02/22/24 RDW Coefficient of Variation 13.8 % (11.5-14.5) 02/22/24 Plt Count 140 K/uL (130-400) 02/22/24 MPV 12.7 fL (9.4-12.4) H 02/22/24 Neutrophils (%) (Auto) 82.8 % 02/22/24 Lymphocytes (%) (Auto) 14.9 % 02/22/24 Monocytes # (Auto) 0.11 K/uL (0.11-0.59) 02/22/24 Eosinophils # (Auto) 0.00 K/uL (0.00-0.50) 02/22/24 Immature Granulocyte % (Auto) 0.3 % 02/22/24 Neutrophils # (Auto) 5.02 K/uL (1.40-6.50) 02/22/24 Lymphocytes # (Auto) 0.90 K/uL (1.20-3.40) L 02/22/24 Monocytes # (Auto) 0.11 K/uL (0.11-0.59) 02/22/24 Eosinophils # (Auto) 0.00 K/uL (0.00-0.50) 02/22/24 Basophils # (Auto) 0.01 K/uL (0.00-0.20) 02/22/24 Immature Granulocyte # (Auto) 0.02 K/uL (0.01-0.20) 4 Na 141 mmol/L (136-145) 02/22/24 K 3.0 mmol/L (3.5-5.1) L 02/22/24 Cl 102 mmol/L (98-107) 02/22/24 CO2 29 mmol/L (21-32) 02/22/24 Anion Gap 10 (3-11) 02/22/24 BUN 17 mg/dl (6-23) 02/22/24 Creatinine 0.76 mg/dl (0.6-1.2) 02/22/24 Estimated GFR ( Amer) 81.7 ml/min 02/22/24 Estimated GFR (Non-Af Amer) 70.5 ml/min 02/22/24 BUN/Creatinine Ratio 22.4 (10-20) H 02/22/24 Glu 134 mg/dl (70-99(Fasting)) H 02/22/24 Ca 9.1 mg/dl (8.6-10.3) 02/22/24 Total Bilirubin 0.8 mg/dl (0.2-1.0) 02/21/24 AST 19 U/L (13-39) 02/21/24 ALT 10 U/L (7-52) 02/21/24 Alkaline Phosphatase 74 U/L (34-104) 02/21/24 TP 6.4 gm/dl (6.0-8.3) 02/21/24 Albumin 4.1 gm/dl (3.4-5.0) 02/21/24 Globulin 2.3 gm/dl (2.5-4.0) L 02/21/24 Albumin/Globulin Ratio 1.8 (0.9-2) 02/21/24 Mg 1.5 mg/dl (1.7-2.4) L 02/22/24 06:12 Calcium Level 9.1 mg/dl (8.6-10.3) 02/22/24 06:12 Prothromb Time International Ratio 1.0 (0.9-1.1) 02/21/24 15:1 7 Venous Blood pH 7.44 (7.36-7.41) H 02/21/24 16:01 Venous Blood Partial Pressure CO2 43 mmHg (38-50) 02/21/24 16:0 1 Venous Blood Partial Pressure O2 49 mmHg 02/21/24 16:01 Venous Blood HCO3 29 mmol/L 02/21/24 16:01 Venous Blood Base Excess 4.4 mEq/L 02/21/24 16:01 Venous Blood Oxygen Saturation 82.8 % 02/21/24 16:01 Diagnostic Findings (Past 24 Hours) Chest X-Ray 02/21/24 15:08 XR chest 1V portable HISTORY: Shortness of breath. Chest pain, nonspecific COMPARISON: Chest 07/15/2018. FINDINGS: Rotated study. No pneumothorax. The heart is mildly enlarged. Trace left pleural effusion persists. There is mild central pulmonary vascular congestion without overt edema. Left basilar linear density favors subsegmental atelectasis or scarring. The left-sided single lead pacemaker. Calcifications within the aortic knob. IMPRESSION: 1. Cardiomegaly with mild congestive change. 2. Chronic trace left pleural effusion again noted. ACT 112: Negative or not required by law. Electronically signed by: Reji Olsen M.D. 02/21/2024 3:44 PM Chest CTA 02/21/24 17:06 CT angio chest PE protocol CLINICAL HISTORY: PE TECHNIQUE: Multidetector row helical CT of the chest was performed with angiographic protocol. Coronal and sagittal reformations were obtained. Coronal and sagittal MIPS were obtained from the axial data set and were submitted for review. Automated dose lowering techniques and/or adjustment according to patient size were utilized for this exam. Comparison: Comparison is made to CT chest 03/12/2016 FINDINGS: Lungs and pleura: Atelectasis versus scarring is seen in the dependent portions of the lungs. Heart and pericardium: Cardiomegaly is seen with biatrial enlargement. Vessels: No evidence of pulmonary embolism. The pulmonary trunk measures 36 mm in diameter. Mediastinum and nilda: Unremarkable. Chest wall and lower neck: Small thyroid nodules are noted which do not require follow-up by ACR criteria. Abdomen: Unremarkable. Bones: Degenerative changes in the thoracic spine. IMPRESSION: 1. No acute abnormality and in particular no evidence of pulmonary embolus. 2. Pulmonary scarring versus atelectasis is seen. Cardiac megaly and pulmonary hypertension. ACT 112: Negative or not required by law. Electronically signed by: Ronald Castanon M.D. 02/21/2024 6:17 PM I & O Totals 24 Hours 02/21/24 02/22/24 02/23/24 06:59 06:59 06:59 Intake Total 350 / 350 Output Total 1000 / 1000 Balance -650 / -650 Cumulative 02/21/24 13:49 thru 02/22/24 06:10 Intake Total 350 Output Total 1000 Balance -650 RT Ventilator Mngmt (Last Documented) Ventilator Ordered Settings Respiratory Rate 17 02/22/24 09:25 Fraction of Inspired Oxygen 30 02/21/24 14:54 Ventilator - PT Measurements Respiratory Rate 17 PG Care Time/CCT Total # of Minutes Spent Total Time Spent with Patient: Total time spent is greater than 50% in coordination of care (as documented) at patient's floor/unit and/or counseling patient: Coding Level of Care Code 71315 INT INP/OBS CARE 2/55MIN Diagnoses Dyspnea R06.00
[2024-02-22] MEDS: METOPROLOL SUCC 25MG EXT REL TAB PO SCH (10:49)
[2024-02-22] MEDS: POTASSIUM CHLORIDE PWD 20 MEQ PACK PO SCH (10:49)
--- NOTE | 2024-02-22 11:10 | Cardiology Consultation ---
Date of Consultation February 22, 2024 Assessment & Plan (1) Acute respiratory failure with hypoxemia: (2) Dyspnea: (3) Atrial fibrillation: (4) Hypokalemia: (5) Hypertension: (6) Elevated troponin: Plan ASSESSMENT/PLAN: 1. Acute respiratory failure with hypoxia: She seems back to baseline now. She appears euvolemic on exam. If she was hypervolemic such as heart failure, she seemed to correct quickly without significant diuresis based on fluid balance that is charted. Cannot exclude flash pulmonary edema however imaging not overly impressive in that regard. On chlorthalidone at home, may be reasonable to use Lasix 20 mg once daily in its place. Start spironolactone 25 mg daily given hypokalemia and ongoing hypertension. Given acute onset, suggested potential ischemic evaluation however she declines any stress testing such as myocardial perfusion study and wants conservative measures with medical therapy. Low-sodium diet. Strict I's and O's while here. Daily weight. 2. Hypertension: Blood pressure consistently elevated while here. Start losartan 25 mg daily. Start spironolactone 25 mg daily given presentation as above and hypokalemia. Continue calcium channel shira. Monitor renal function. 3. Atrial fibrillation: Described as permanent by her dag coater. Continue diltiazem for rate control strategy. Anticoagulation therapy has been documented as contraindicated given cervical epidural hematoma requiring surgical evacuation in the past. She is not interested in procedures (thus Watchman device not discussed today). 4. Elevated troponin: Likely due to her presentation with respiratory failure and hypoxia. She did not present with acute coronary syndrome but cannot exclude ischemic heart disease. She does not wish to undergo formal evaluation in this regard. 5. Disposition: Cardiology will sign off at this time. Recommend close follow- up with her primary office clin asst, Dr. Lam. Patient care communicated with primary hospitalist, Dr. Laura. Thank you for allowing me to participate in the care of your patient. Please call for any other questions or concerns. Sincerely, Serg Carr M.D. History of Present Illness Reason for Consultation: "CHF" Requesting Physician: Dr. Coreas Attending Physician: Roberto Laura MD History of Present Illness Ms. Montoya is a very pleasant 88-year-old female with a history significant for permanent atrial fibrillation, tachybradycardia syndrome, single-chamber pacemaker implantation (07/07/2016), gastric ulcer, hypothyroidism, and neuropathy. Her primary office clin asst is Dr. Lam. She was hospitalized on 02/21/2024 after having an acute episode of shortness of breath. She reports that she was doing well and then while putting some things away in her garage, she became acutely short of breath. She noted that breathin g was better while sitting upright compared to laying down. She apparently was placed on BiPAP prior to arrival in the ER. At 1 point, she said she had intermittent shortness of breath and also apparently had right shoulder pain and right-sided chest pain in the ambulance. Her son-in-law, present at the bedside, states that she was confused/delirious. She has chronic swelling in her feet which she believes is stable and improves while wearing compression stockings. She does not exercise but remains relatively active. She has to take breaks at times due to feeling worn out but denies dyspnea. She believes that this is chronic and stable. While here, she received intravenous Lasix and also methylprednisolone, being treated for potential heart failure and also pulmonary issue. She has been seen by pulmonary earlier today who does not believe that she needs further steroids. Unclear if her fluid balance is accurate but she did diurese some. She feels back to baseline now. She is not requiring any supplemental oxygen and denies orthopnea currently. She is not experiencing any chest pain at this time. She denies syncope, near syncope, palpitations, melena, hematochezia, or hematuria. Review of systems: As above. Family history: No known premature CAD. Social history: She denies tobacco, alcohol, or drug abuse. She lives at home. Her grandson lives with her. Her daughter and son-in-law live across the street. She has 5 children. Her son-in-law was present at the bedside. Allergies Allergy/AdvReac Type Severity Reaction Status Date / Time oxycodone AdvReac Intermediate HALLUCINATI Verified 02/21/24 17:24 ONS morphine AdvReac Unknown DELIRIUM Verified 02/21/24 17:24 Home Medications Medication Instructions Recorded Confirmed Type aspirin 325 mg tablet 325 mg PO DAILY@209905/06/18 02/21/24 History famotidine 40 mg tablet (Pepcid) 40 mg PO DAILY@209905/06/18 02/21/24 History levothyroxine 75 mcg tablet 75 mcg PO DAILY@1000 05/06/18 02/21/24 History (Synthroid) omeprazole 40 mg capsule,delayed 40 mg PO DAILY@1000 05/06/18 02/21/24 History release pregabalin 50 mg capsule (Lyrica) 100 mg PO DAILY@1000,2100 05/06/18 02/21/24 History sennosides 8.6 mg tablet (senna) 8.6 mg PO Q2D 05/06/18 02/21/24 History atorvastatin 20 mg tablet 20 mg PO DAILY@209911/16/18 02/21/24 History docusate sodium 100 mg tablet 200 mg PO DAILY@209911/16/18 02/21/24 History sertraline 50 mg tablet 50 mg PO DAILY@209911/16/18 02/21/24 History zolpidem 5 mg tablet 5 mg PO DAILY@209911/16/18 02/21/24 History cyanocobalamin (vitamin B-12) 1,000 mcg IM MONTHLY 04/13/19 02/21/24 History 1,000 mcg/mL injection kit diltiazem HCl 240 mg 240 mg PO QAM #90 caps 05/08/21 02/21/24 Rx capsule,extended release 24 hr donepezil 5 mg tablet 5 mg PO DAILY 02/09/22 02/21/24 History chlorthalidone 25 mg tablet 25 mg PO DAILY 02/21/24 02/21/24 History cranberry extract 500 mg tablet 1,000 mg PO DAILY 02/21/24 02/21/24 History ferrous sulfate 325 mg (65 mg 325 mg PO BID 02/21/24 02/21/24 History iron) tablet ibandronate 150 mg tablet 150 mg PO .MONTHLY 02/21/24 02/21/24 History potassium chloride 10 mEq 10 meq PO DAILY 02/21/24 02/21/24 History capsule,extended release Problem List (Updated 02/22/24 @ 14:12 by Daniel Carr MD) Acute respiratory failure with hypoxemia Elevated troponin Dyspnea Atrial fibrillation Hypokalemia (Acute) Anticoagulation therapy not indicated Dizziness Hypothyroidism DVT prophylaxis Periorbital cellulitis of left eye Insomnia Depression (Chronic) B12 deficiency Peripheral neuropathy (Chronic) Hypertension (Chronic) Hyperlipidemia LDL goal <70 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) Cellulitis of left orbit (Acute) Abdominal pain (Acute) Stomach ulcer (Acute) GERD (gastroesophageal reflux disease) (Chronic) H/O cervical spine surgery (Chronic) "cervical decompression with evacuation of cervical epidural hematoma 09/22/2012" Atrial fibrillation with rapid ventricular response (Chronic) Atypical chest pain Bradycardia Precordial chest pain (Acute) Thoracic back pain (Acute) Vertigo (Acute) Weakness (Acute) Patient History Family History Other Family history non-contributory Social History Smoking Status: Never smoker Do You Dip or Chew Tobacco: No; Hx Alcohol Use: No Hx Substance Use: No Preferred Language: Salvadorean Communication Ability: Effective Package Dye Stand Loader Required: No Beliefs That Will Affect Care: None marital status: / Current Living Situation: Spouse Current Living Situation Comment: Zaid Garcia Feels Safe at Home: Yes Assistive Devices: Cane and Walker Physical Exam Physical Exam: Gen.: No acute distress. Alert. HEENT: Anicteric sclera. Neck: No JVD. No bruits. Normal carotid upstrokes bilaterally. Cardiac: No ventricular heave. Irregularly irregular. Normal S1-S2. No murmurs, rubs, or gallops. Pulmonary: Clear to auscultation bilaterally without wheezes, rales, or rhonchi. Abdomen: Soft, nontender, nondistended, with normoactive bowel sounds. No bruits noted. Extremities: 2+ radial pulses bilaterally. 2+ posterior tibialis pulses bilaterally. Trace left lower extremity edema. No cyanosis. Results & Data Vital Signs (Past 12 Hours) Vital Signs Temp Pulse Pulse Resp BP Pulse Ox O2 Del Method 02/22/24 11:00 36.5 C 77 19 189/61 H 96 Room Air 02/22/24 10:09 84 02/22/24 09:25 36.5 C 90 17 149/79 H 100 Room Air 02/22/24 07:48 Room Air 02/22/24 07:28 36.5 C 80 18 177/73 H 93 Room Air 02/22/24 03:11 36.5 C 74 18 177/73 H 95 Room Air Intake & Output 06/3002/21/24 02/22/24 02/23/24 06:59 06:59 06:59 06:59 Intake Total 350 / 350 185.833 / 185.833 Output Total 1000 / 1000 Balance -650 / -650 185.833 / 185.833 Weight 118 lb Laboratory Results Laboratory Results - last 24 hr 02/21/24 02/21/24 02/21/24 15:17 15:24 16:01 WBC 6.75 RBC 4.89 Hgb 14.2 Hct 40.2 MCV 82.2 MCH 29.0 MCHC 35.3 RDW Std Deviation 42.0 RDW Coeff of Aflredo 14.0 Plt Count 111 L MPV 12.8 H Immature Gran % (Auto) 0.4 Neut % (Auto) 63.4 Lymph % (Auto) 27.9 [place] % (Auto) 7.0 Eos % (Auto) 0.6 Baso % (Auto) 0.7 Neut # (Auto) 4.28 Lymph # (Auto) 1.88 [place] # (Auto) 0.47 Eos # (Auto) 0.04 Baso # (Auto) 0.05 Immature Gran # (Auto) 0.03 Platelet Estimate Decreased L PT 11.2 INR 1.0 APTT 24 PTT Ratio 0.9 VBG pH 7.44 H VBG pCO2 43 VBG pO2 49 VBG HCO3 29 VBG O2 Saturation 82.8 VBG Base Excess 4.4 Sodium 142 Potassium 3.0 L Chloride 104 Carbon Dioxide 29 Anion Gap 9 BUN 21 Creatinine 0.74 Est Cr Clr Drug Dosing 48.4 Est GFR ( Amer) 84.4 Est GFR (Non-Af Amer) 72.8 BUN/Creatinine Ratio 28.4 H Glucose 89 Calcium 9.5 Magnesium Total Bilirubin 0.8 AST 19 ALT 10 Alkaline Phosphatase 74 Troponin I High Sens 10.6 B-Natriuretic Peptide 187 H Total Protein 6.4 Albumin 4.1 Globulin 2.3 L Albumin/Globulin Ratio 1.8 TSH Adenovirus (PCR) Not Detected B. pertussis DNA (PCR) Not Detected B.parapertussis DNA PCR Not Detected C. pneumoniae DNA (PCR) Not Detected Coronavirus OC43 (PCR) Not Detected Coronavirus HKU1 (PCR) Not Detected Coronavirus 229E (PCR) Not Detected SARS-CoV-2 (PCR) Not Detected Coronavirus NL63 (PCR) Not Detected Human Metapneumovir PCR Not Detected Influenza Type A (PCR) Not Detected Influenza Type B (PCR) Not Detected M. pneumoniae (PCR) Not Detected Parainfluenza 1 (PCR) Not Detected Parainfluenza 2 (PCR) Not Detected Parainfluenza 3 (PCR) Not Detected Parainfluenza 4 (PCR) Not Detected RSV (PCR) Not Detected Entero/Rhino (PCR) Not Detected 02/21/24 02/22/24 02/22/24 21:21 06:12 11:37 WBC 6.06 RBC 5.31 Hgb 15.0 Hct 43.2 MCV 81.4 MCH 28.2 MCHC 34.7 RDW Std Deviation 40.4 RDW Coeff of Alfredo 13.8 Plt Count 140 MPV 12.7 H Immature Gran % (Auto) 0.3 Neut % (Auto) 82.8 Lymph % (Auto) 14.9 [place] % (Auto) 1.8 Eos % (Auto) 0.0 Baso % (Auto) 0.2 Neut # (Auto) 5.02 Lymph # (Auto) 0.90 L [place] # (Auto) 0.11 Eos # (Auto) 0.00 Baso # (Auto) 0.01 Immature Gran # (Auto) 0.02 Platelet Estimate PT INR APTT PTT Ratio VBG pH VBG pCO2 VBG pO2 VBG HCO3 VBG O2 Saturation VBG Base Excess Sodium 141 Potassium 3.0 L Chloride 102 Carbon Dioxide 29 Anion Gap 10 BUN 17 Creatinine 0.76 Est Cr Clr Drug Dosing 41.2 Est GFR ( Amer) 81.7 Est GFR (Non-Af Amer) 70.5 BUN/Creatinine Ratio 22.4 H Glucose 134 H Calcium 9.1 Magnesium 1.1 L 1.5 L Total Bilirubin AST ALT Alkaline Phosphatase Troponin I High Sens 10.2 29.2 H D 25.2 H B-Natriuretic Peptide Total Protein Albumin Globulin Albumin/Globulin Ratio TSH 3.923 Adenovirus (PCR) B. pertussis DNA (PCR) B.parapertussis DNA PCR C. pneumoniae DNA (PCR) Coronavirus OC43 (PCR) Coronavirus HKU1 (PCR) Coronavirus 229E (PCR) SARS-CoV-2 (PCR) Coronavirus NL63 (PCR) Human Metapneumovir PCR Influenza Type A (PCR) Influenza Type B (PCR) M. pneumoniae (PCR) Parainfluenza 1 (PCR) Parainfluenza 2 (PCR) Parainfluenza 3 (PCR) Parainfluenza 4 (PCR) RSV (PCR) Entero/Rhino (PCR) Diagnostic Findings ECHO 02/22/24: 1. Normal left ventricular size and systolic function. EF 60-65%. No regional wall motion abnormalities. Severe asymmetric basal septal hypertrophy, other dobson mild concentric left ventricular hypertrophy. 2. Sclerotic aortic valve with mild regurgitation. 3. Normal estimated right ventricular systolic pressure. 4. Small pericardial effusion without echocardiographic evidence of tamponade physiology. 5. Atrial fibrillation. 6. Compared to prior study on 07/01/2016, small pericardial effusion is now present. Telemetry personally reviewed: Atrial fibrillation with reasonable rate control. Occasional ventricular paced complexes. ECG personally reviewed 02/21/2024: Atrial fibrillation with ventricular paced complexes [address]/T wave inversion involving the anterolateral and inferior leads. Labs reviewed and notable for mildly elevated high-sensitivity troponin peaking at 29. Mildly elevated BNP. Hypokalemia, normal renal function, hyp omagnesemia, normal transaminase levels, normal TSH, normal blood counts. CTA chest 02/21/2024: No acute abnormality per radiology. No PE. Chest x-ray 02/21/2024: Mild congestive change per radiology. Medications Administered Current Inpatient Medications Acetaminophen (Acetaminophen 325 Mg Tab) 650 mg PO Q4H PRN PRN Reason: pain/fever Stop: 03/22/24 19:37 Al Hydrox/Mg Hydrox/Simethicone (Aluminum/Magnesium Susp 30 Ml Udc) 30 ml PO Q6H PRN PRN Reason: Dyspepsia Stop: 03/22/24 19:37 Albuterol (Albut/Ipratrop 3mg/0.5mg Neb 3 Ml Vial) 3 ml NEB Q6R PRN; Protocol PRN Reason: Wheezing Stop: 03/22/24 22:42 Atorvastatin Calcium (Atorvastatin 20 Mg Tab) 20 mg PO DAILY@2100 [facility] Stop: 03/22/24 22:42 Last Admin: 02/21/24 23:23 Dose: Not Given Diltiazem HCl (Diltiazem Hcl 240 Mg Capcr) 240 mg PO QAM [facility] Stop: 03/22/24 22:42 Last Admin: 02/22/24 09:20 Dose: 240 mg Docusate Sodium (Docusate Sodium 100 Mg Cap) 200 mg PO DAILY@2100 [facility] Stop: 03/22/24 22:42 Last Admin: 02/21/24 23:24 Dose: Not Given Donepezil HCl (Donepezil Hcl 5 Mg Tab) 5 mg PO DAILY [facility] Stop: 03/23/24 08:59 Last Admin: 02/22/24 09:18 Dose: 5 mg Famotidine (Famotidine 40 Mg Tablet) 40 mg PO DAILY@2100 [facility] Stop: 03/22/24 22:42 Last Admin: 02/21/24 23:24 Dose: Not Given Ferrous Sulfate (Ferrous Sulfate 325 Mg Tab) 325 mg PO BID [facility] Stop: 03/22/24 22:42 Last Admin: 02/22/24 09:21 Dose: 325 mg Furosemide (Furosemide Inj 20 Mg/2 Ml Vial) 20 mg IV QAM [facility] Stop: 03/23/24 08:59 Last Admin: 02/22/24 09:22 Dose: 20 mg Heparin Sodium (Porcine) (Heparin Sod 5,000 Unit/0.5 Ml Vial) 5,000 units SQ Q8 [facility] Stop: 03/22/24 22:42 Last Admin: 02/22/24 13:48 Dose: 5,000 units Levothyroxine Sodium (Levothyroxine Sodium 75 Mcg Tablet) 75 mcg PO DAILY@1000 [facility] Stop: 03/23/24 09:59 Last Admin: 02/22/24 09:19 Dose: 75 mcg Metoprolol Succinate (Metoprolol Succ 25mg Ext Rel Tab) 25 mg PO QAM [facility] Stop: 03/23/24 08:59 Last Admin: 02/22/24 10:49 Dose: 25 mg Ondansetron HCl (Ondansetron Inj 2 Mg/Ml 2 Ml Vial) 4 mg IV Q6H PRN PRN Reason: Nausea Stop: 03/22/24 19:37 Pantoprazole Sodium (Pantoprazole 40 Mg Tab) 40 mg PO DAILY@1000 [facility] Stop: 03/23/24 09:59 Last Admin: 02/22/24 09:18 Dose: 40 mg Polyethylene Glycol (Polyethylene (Miralax) 17 Gm Pack) 17 gm PO DAILY PRN PRN Reason: Constipation Stop: 03/22/24 19:37 Potassium Chloride (Potassium Chloride Pwd 20 Meq Pack) 20 meq PO TID [facility] Stop: 03/23/24 09:44 Last Admin: 02/22/24 13:46 Dose: 20 meq Pregabalin (Pregabalin 100 Mg Cap) 100 mg PO DAILY@1000,2100 [facility] Stop: 03/22/24 22:42 Last Admin: 02/22/24 09:17 Dose: 100 mg Sennosides (Senna 8.6 Mg Tab) 8.6 mg PO Q48H [facility] Stop: 03/23/24 08:59 Last Admin: 02/22/24 09:19 Dose: 8.6 mg Sertraline HCl (Sertraline Hcl 50 Mg Tablet) 50 mg PO DAILY@2099 [facility] Stop: 03/22/24 22:42 Last Admin: 02/21/24 23:24 Dose: Not Given Zolpidem Tartrate (Zolpidem Tartrate 5 Mg Tab) 5 mg PO DAILY@2099 [facility] Stop: 03/22/24 22:42 Last Admin: 02/21/24 23:30 Dose: 5 mg PG Care Time/CCT Total # of Minutes Spent Total Time Spent with Patient: Total time spent is greater than 50% in coordination of care (as documented) at patient's floor/unit and/or counseling patient: Coding Level of Care Code 97698 INT INP/OBS CARE 3/75MIN Diagnoses Acute respiratory failure with hypoxemia J96.01 Dyspnea R06.00 Atrial fibrillation I48.91 Hypokalemia E87.6 Primary hypertension I10 Hypertension type: primary hypertension Elevated troponin R79.89 (5) Hypertension Hypertension type: primary hypertension Qualified Code(s): I10 - Essential (primary) hypertension
--- NOTE | 2024-02-22 11:19 | XCELERA ---
[id number] [id number]
[2024-02-22] MEDS: ISOSORBIDE MONO EXTENDED REL 30 MG TABCR PO SCH (15:11)
[2024-02-22] MEDS: SPIRONOLACTONE 25 MG TAB PO SCH (15:11)
[2024-02-22] MEDS: LOSARTAN POTASSIUM 25 MG TAB PO SCH (15:13)
--- NOTE | 2024-02-22 19:23 | Hospitalist Progress Note ---
Date of Service February 22, 2024 Assessment & Plan (1) Acute respiratory failure with hypoxemia: Plan: 2nd to suspected acute diastolic CHF both her acute hypoxic resp failure and the acute diastolic CHF are resolved stable in RA today hold further diuresis CTA chest neg for PE (2) Acute diastolic CHF (congestive heart failure): Plan: presented in decompensated CHF by history s/p diuresis and now compensated today etiology of decompensated CHF?? appreciate cardiology consultation ischemic eval recommended but patient deferred such agree with med recs per cards -- imdur, losartan, BB, aldactone, lasix (3) Hypokalemia: Plan: replace trend the K levels mag level today noted (1.5 - replace such) (4) Elevated troponin: Plan: peak trop 29 at minimum myocardial demand ischemia 2nd to #1, #2 no evidence of ACS see #1, #2 above (5) Chills: Plan: etiology? check u/a and urine cx - r/o UTI check lyme, anaplasmosis, and babesia screens no evidence of pneumonia on CTA chest no recurrent chills since preadmission (6) Hypothyroidism: Plan: Continue home dose of Synthroid TSH 3.9 (7) Atrial fibrillation: Plan: she is not on chronic anticoagulation cont CCB added BB for better BP control HRs controlled (8) Depression: Plan: Continue home dose of sertraline 50 mg daily (9) Hypertension: Plan: improving added low-dose metoprolol succ this am appreciate cards input (10) Hyperlipidemia LDL goal <70: Plan: Cont lipitor 20mg daily Plan updated pt's daughter by phone this evening Admission and Anticipated Discharge Date Admission Date: February 21, 2024 Subjective patient resting comfortably in bed denies all complaints "I feel better" had had chills/sweats at home prior to coming in -- no symptoms like such since then denies any chest pain denies any dyspnea or cough over the last few months hasn't had any chest pain or dyspnea episodes Review of Systems Review of Systems: gen - no fevers cv - no orthopnea, no edema GI - no abd pain Physical Exam Physical Exam: gen - NAD, pleasant, looks well neck - no JVD mouth - MMM heart - irregularly irregular, s1 s2, no murmur lungs - CTA b/l abd - soft NT ND BS+ ext - no edema, pulses 2+ b/l Results & Data Results & Data Vital Signs (Past 12 Hours) Vital Signs Temp Pulse Pulse Resp BP Pulse Ox O2 Del Method 02/22/24 17:14 60 02/22/24 14:59 36.7 C 65 18 150/74 H 94 Room Air 02/22/24 11:00 36.5 C 77 19 189/61 H 96 Room Air 02/22/24 10:09 84 02/22/24 09:25 36.5 C 90 17 149/79 H 100 Room Air 02/22/24 07:48 Room Air 02/22/24 07:28 36.5 C 80 18 177/73 H 93 Room Air Laboratory Results Laboratory Results - last 48 hr 02/21/24 02/21/24 02/21/24 15:17 15:24 16:01 WBC 6.75 RBC 4.89 Hgb 14.2 Hct 40.2 MCV 82.2 MCH 29.0 MCHC 35.3 RDW Std Deviation 42.0 RDW Coeff of Alfredo 14.0 Plt Count 111 L MPV 12.8 H Immature Gran % (Auto) 0.4 Neut % (Auto) 63.4 Lymph % (Auto) 27.9 [place] % (Auto) 7.0 Eos % (Auto) 0.6 Baso % (Auto) 0.7 Neut # (Auto) 4.28 Lymph # (Auto) 1.88 [place] # (Auto) 0.47 Eos # (Auto) 0.04 Baso # (Auto) 0.05 Immature Gran # (Auto) 0.03 Platelet Estimate Decreased L PT 11.2 INR 1.0 APTT 24 PTT Ratio 0.9 VBG pH 7.44 H VBG pCO2 43 VBG pO2 49 VBG HCO3 29 VBG O2 Saturation 82.8 VBG Base Excess 4.4 Sodium 142 Potassium 3.0 L Chloride 104 Carbon Dioxide 29 Anion Gap 9 BUN 21 Creatinine 0.74 Est Cr Clr Drug Dosing 48.4 Est GFR ( Amer) 84.4 Est GFR (Non-Af Amer) 72.8 BUN/Creatinine Ratio 28.4 H Glucose 89 POC Glucose Calcium 9.5 Magnesium Total Bilirubin 0.8 AST 19 ALT 10 Alkaline Phosphatase 74 Troponin I High Sens 10.6 B-Natriuretic Peptide 187 H Total Protein 6.4 Albumin 4.1 Globulin 2.3 L Albumin/Globulin Ratio 1.8 TSH Adenovirus (PCR) Not Detected B. pertussis DNA (PCR) Not Detected B.parapertussis DNA PCR Not Detected C. pneumoniae DNA (PCR) Not Detected Coronavirus OC43 (PCR) Not Detected Coronavirus HKU1 (PCR) Not Detected Coronavirus 229E (PCR) Not Detected SARS-CoV-2 (PCR) Not Detected Coronavirus NL63 (PCR) Not Detected Human Metapneumovir PCR Not Detected Influenza Type A (PCR) Not Detected Influenza Type B (PCR) Not Detected M. pneumoniae (PCR) Not Detected Parainfluenza 1 (PCR) Not Detected Parainfluenza 2 (PCR) Not Detected Parainfluenza 3 (PCR) Not Detected Parainfluenza 4 (PCR) Not Detected RSV (PCR) Not Detected Entero/Rhino (PCR) Not Detected 02/21/24 02/22/24 02/22/24 21:21 06:12 11:37 WBC 6.06 RBC 5.31 Hgb 15.0 Hct 43.2 MCV 81.4 MCH 28.2 MCHC 34.7 RDW Std Deviation 40.4 RDW Coeff of Alfredo 13.8 Plt Count 140 MPV 12.7 H Immature Gran % (Auto) 0.3 Neut % (Auto) 82.8 Lymph % (Auto) 14.9 [place] % (Auto) 1.8 Eos % (Auto) 0.0 Baso % (Auto) 0.2 Neut # (Auto) 5.02 Lymph # (Auto) 0.90 L [place] # (Auto) 0.11 Eos # (Auto) 0.00 Baso # (Auto) 0.01 Immature Gran # (Auto) 0.02 Platelet Estimate PT INR APTT PTT Ratio VBG pH VBG pCO2 VBG pO2 VBG HCO3 VBG O2 Saturation VBG Base Excess Sodium 141 Potassium 3.0 L Chloride 102 Carbon Dioxide 29 Anion Gap 10 BUN 17 Creatinine 0.76 Est Cr Clr Drug Dosing 41.2 Est GFR ( Amer) 81.7 Est GFR (Non-Af Amer) 70.5 BUN/Creatinine Ratio 22.4 H Glucose 134 H POC Glucose Calcium 9.1 Magnesium 1.1 L 1.5 L Total Bilirubin AST ALT Alkaline Phosphatase Troponin I High Sens 10.2 29.2 H D 25.2 H B-Natriuretic Peptide Total Protein Albumin Globulin Albumin/Globulin Ratio TSH 3.923 Adenovirus (PCR) B. pertussis DNA (PCR) B.parapertussis DNA PCR C. pneumoniae DNA (PCR) Coronavirus OC43 (PCR) Coronavirus HKU1 (PCR) Coronavirus 229E (PCR) SARS-CoV-2 (PCR) Coronavirus NL63 (PCR) Human Metapneumovir PCR Influenza Type A (PCR) Influenza Type B (PCR) M. pneumoniae (PCR) Parainfluenza 1 (PCR) Parainfluenza 2 (PCR) Parainfluenza 3 (PCR) Parainfluenza 4 (PCR) RSV (PCR) Entero/Rhino (PCR) Diagnostic Findings echo - EF 60-65%, small pericardial effusion, severe asymmetric LVH PG Care Time/CCT Total # of Minutes Spent Total Time Spent with Patient: Total time spent is greater than 50% in coordination of care (as documented) at patient's floor/unit and/or counseling patient: Coding Level of Care Code 99725 SUB INP/OBS CARE 3/50MIN Diagnoses Acute respiratory failure with hypoxemia J96.01 Acute diastolic CHF (congestive heart failure) I50.31 Hypokalemia E87.6 Elevated troponin R79.89 Chills R68.83 Hypothyroidism E03.9 Atrial fibrillation I48.91 Depression F32.9 Primary hypertension I10 Hypertension type: primary hypertension Hyperlipidemia LDL goal <70 E78.5 (9) Hypertension Hypertension type: primary hypertension Qualified Code(s): I10 - Essential (primary) hypertension
--- NOTE | 2024-02-23 03:41 | Communication Note ---
Date of Service: February 23, 2024 Called to pt's bedside by nursing d/t concern for stroke-like symptoms. Pt was awoken from sleep to change her Pure wick catheter. Upon awakening, she was not following commands and seemed confusion (which is not her baseline). Upon my entering the room, the pt was lying in bed awake and talking with hospital staff. She was questioning what they were doing and asking where she was. When told she was in the hospital, she asked who brought her here. I asked her to smile and she gave a small, quick smirk. I asked her to show me her teeth and she said no. I asked her to squeeze my hands and she said no. She was observed to be moved all 4 extremities equally. She was not slurring her speech and her sentences were properly formed. Her pupils were equal and reactive to light. Pt fell asleep prior to my leaving the room. CT head deferred at this time as pt believed to be delirious and not having an acute event. Nursing to continue to monitor and alert with any new, concerning changes. VSS throughout entire event. Nursing to continue to monitor VS for any changes. Resident Activity Tracking Resident Involvement: Resident Care Provided Care Provided: Adult Hospital Medicine
--- NOTE | 2024-02-23 06:03 | Electrocardiogram Report ---
Test Reason : Blood Pressure : / mmHG Vent. Rate : 074 BPM Atrial Rate : 000 BPM P-R Int : 000 ms QRS Dur : 100 ms QT Int : 440 ms P-R-T Axes : 000 000 -87 degrees QTc Int : 488 ms Atrial fibrillation with frequent ventricular-paced complexes Prolonged QT Abnormal ECG When compared with ECG of 15-JUL-2018 15:41, No significant change Confirmed by Daniel Carr ([id number]) on 02/23/2024 6:03:14 AM Referred By: REFERRED SELF Confirmed By:Daniel Carr
[2024-02-23 08:07] LABS: Magnesium 2.1 mg/dl (1.7-2.4); Potassium 3.9 mmol/L (3.5-5.1)
[2024-02-23 08:09] LABS: BUN Creatinine Ratio 33.3 (10-20); Creatinine Clr Calc Pharmacy 31.7 ml/min; Est GFR (African American) 59.4 ml/min; Est GFR (Non-African American) 51.2 ml/min
[2024-02-23 08:44] LABS: Lyme Screen Rflx Confirmation Equivocal (Negative)
[2024-02-23 09:18] LABS: Lyme Ab IgG 2nd Tier Confirm Negative (Negative)
[2024-02-23 09:19] LABS: Lyme Ab IgM 2nd Tier Confirm Negative (Negative)
[2024-02-23 10:33] LABS: Appearance Urine Cloudy (Clear); Bacteria Urine Automated 4+ (None Seen); Bilirubin Urine Negative (Negative); Blood Urine Negative (Negative); Cast Urine Automated >20 /lpf (0-2); Color Urine Yellow; Glucose Urine UA Negative (Negative); Hyaline Casts Urine Present /lpf (None Presnt); Ketones Urine Trace (Negative); Leukocyte Esterase Urine 3+ (Negative); Nitrite Urine Negative (Negative); Protein Urine Negative (Negative); RBC Urine Automated 0-2 /hpf (0-2); Specific Gravity Urine 1.021 (1.000-1.030); Urobilinogen Urine Negative (Negative); WBC Urine Automated 21-50 /hpf (0-5)
[2024-02-23] MEDS: cefTRIAXone SODIUM 1,000 MG/50 ML BAG IV SCH (12:13)
[2024-02-23] MEDS: SODIUM CHLORIDE 0.9% 500 ML IV ONE ×2 (12:14→15:11)
--- NOTE | 2024-02-23 19:14 | Hospitalist Progress Note ---
Date of Service February 23, 2024 Assessment & Plan (1) Hypotension: Plan: iatrogenic - 2nd to recent diuresis as well as introduction of multiple new BP/cardiac meds plan - s/p 2 boluses of 500cc each of NS with improved BPs CUT in 1/2 the diltiazem CD to 120mg daily stop aldactone hold losartan cont metoprolol succ for now cont imdur no further diuretics (2) Acute metabolic encephalopathy: Plan: likely 2nd to UTI she is on chronic aricept so likely has some baseline dementia as well supportive care needs better sleep schedule melatonin 3mg HS risperdal 0.25mg HS prn for severe agitation/delirium (3) UTI (urinary tract infection): Plan: u/a highly suspicious for such start rocephin 1gm daily follow cx (4) Acute respiratory failure with hypoxemia: Plan: 2nd to suspected acute diastolic CHF both her acute hypoxic resp failure and the acute diastolic CHF are resolved stable in RA hold further diuresis CTA chest neg for PE (5) Acute diastolic CHF (congestive heart failure): Plan: presented in decompensated CHF by history s/p diuresis and now compensated (actually is likely volume contracted now) etiology of decompensated CHF?? appreciate cardiology consultation ischemic eval recommended but patient deferred such agree with med recs per cards but see #1 re: temporary holds/stopping of certain meds due to low BP (6) Hypokalemia: Plan: replaced resolved (7) Elevated troponin: Plan: peak trop 29 at minimum myocardial demand ischemia 2nd to #1, #2 no evidence of ACS see above (8) Chills: Plan: suspect it was due to brewing UTI now that u/a has been obtained lyme screen neg anaplasmosis and babesia screens neg no evidence of pneumonia on CTA chest (9) Hypothyroidism: Plan: Continue home dose of Synthroid TSH 3.9 (10) Atrial fibrillation: Plan: she is not on chronic anticoagulation cont CCB added BB for better BP control HRs controlled (11) Depression: Plan: Continue home dose of sertraline 50 mg daily (12) Hypertension: Plan: now with hypotension - see #1 above (13) Hyperlipidemia LDL goal <70: Plan: Cont lipitor 20mg daily Plan updated pt's daughter by phone yesterday evening updated 2nd daughter at bedside today PT, OT may need rehab Admission and Anticipated Discharge Date Admission Date: February 21, 2024 Subjective tele overnight - pacing patient was sitting in the chair this am didn't have dizziness, but her BP was in the 70s systolic while in the chair 500cc NS bolus given with improvement in systolic BP to the 90s additional 500cc NS bolus given and SBP improved to >100 overnight had night resident physician was called because of the acute mental status changes during the visit she was lying comfortably in bed daughter was present at bedside daughter commented her mother looked better than previous we discussed the suspected UTI and other events of her hospitalization Review of Systems Review of Systems: gen - no fevers; some fatigue; eating well cv - no chest pain, no orthopnea pulm - no dyspnea at rest; no cough GI - no N/V Physical Exam Physical Exam: gen - NAD, pleasant; looks tired today neck - no JVD mouth - MM a little dry heart - irregularly irregular, s1 s2, no murmur lungs - CTA b/l abd - soft NT ND BS+ ext - no edema, pulses 2+ b/l Results & Data Results & Data Vital Signs (Past 12 Hours) Vital Signs Temp Pulse Pulse Pulse Resp BP BP 02/23/24 15:14 72 107/65 02/23/24 14:06 82 94/57 L 02/23/24 11:42 36.3 C L 74 20 77/43 L 02/23/24 07:40 36.3 C L 70 20 104/62 02/23/24 07:40 62 Pulse Ox O2 Del Method 02/23/24 15:14 94 Room Air 02/23/24 14:06 02/23/24 11:42 93 Room Air 02/23/24 07:40 96 Room Air 02/23/24 07:40 Laboratory Results Laboratory Results - last 24 hr 02/23/24 02/23/24 02/23/24 03:17 07:11 10:02 Sodium 139 Potassium 3.9 D Chloride 102 Carbon Dioxide 28 Anion Gap 9 BUN 33 H Creatinine 0.99 Est Cr Clr Drug Dosing 31.7 Est GFR ( Amer) 59.4 Est GFR (Non-Af Amer) 51.2 BUN/Creatinine Ratio 33.3 H Glucose 117 H POC Glucose 129 H Calcium 9.0 Magnesium 2.1 Vitamin B1 Pending Vitamin B12 1413 H Urine Color Yellow Urine Appearance Cloudy A Urine pH 5.0 Ur Specific [place] 1.021 Urine Protein Negative Urine Glucose (UA) Negative Urine Ketones Trace H Urine Blood Negative Urine Nitrite Negative Urine Bilirubin Negative Urine Urobilinogen Negative Ur Leukocyte Esterase 3+ H Urine WBC (Auto) 21-50 H Urine RBC (Auto) 0-2 U Hyaline Cast (Auto) >20 H U Epithel Cells (Auto) 6-10 H Urine Bacteria (Auto) 4+ H Hyaline Casts Present A Anaplasma Smear See Comment Babesia Smear See Comment Lyme Disease Screen Equivocal H Lyme Tier 2 IgG Confirm Negative Lyme Tier 2 IgM Confirm Negative PG Care Time/CCT Total # of Minutes Spent Total Time Spent with Patient: Total time spent is greater than 50% in coordination of care (as documented) at patient's floor/unit and/or counseling patient: Coding Level of Care Code 38220 SUB INP/OBS CARE 3/50MIN Diagnoses Hypotension I95.9 Acute metabolic encephalopathy G93.41 UTI (urinary tract infection) N39.0 Acute respiratory failure with hypoxemia J96.01 Acute diastolic CHF (congestive heart failure) I50.31 Hypokalemia E87.6 Elevated troponin R79.89 Chills R68.83 Hypothyroidism E03.9 Atrial fibrillation I48.91 Depression F32.9 Primary hypertension I10 Hypertension type: primary hypertension Hyperlipidemia LDL goal <70 E78.5 (12) Hypertension Hypertension type: primary hypertension Qualified Code(s): I10 - Essential (primary) hypertension
[2024-02-23] MEDS ORDERED: risperiDONE 0.25 MG TAB PO PRN (19:15)
[2024-02-23] MEDS: POLYETHYLENE (MIRALAX) 17 GM PACK PO SCH (20:24)
[2024-02-23] MEDS: MELATONIN 3 MG TAB PO SCH (20:25)
--- NOTE | 2024-02-24 00:15 | Electrocardiogram Report ---
Test Reason : Blood Pressure : / mmHG Vent. Rate : 064 BPM Atrial Rate : 066 BPM P-R Int : 000 ms QRS Dur : 186 ms QT Int : 526 ms P-R-T Axes : 000 -73 103 degrees QTc Int : 542 ms Ventricular-paced rhythm Abnormal ECG When compared with ECG of 21-FEB-2024 14:50, Vent. rate has decreased BY 10 BPM Confirmed by Daniel Carr ([id number]) on 02/24/2024 12:14:54 AM Referred By: REFERRED SELF Confirmed By:Daniel Carr
[2024-02-24 06:58] LABS: Hematocrit (blood only) 39.7 % (37.0-47.0); Hemoglobin 13.3 g/dl (12.0-16.0); Mean Corpuscular Hemoglobin 28.4 pg (25.0-34.0); Mean Corpuscular Hgb Conc 33.5 g/dL (32.0-36.0); Mean Corpuscular Volume 84.6 fL (80.0-100.0); Mean Platelet Volume 12.6 fL (9.4-12.4); Platelet Count 126 K/uL (130-400); RDW Coefficient of Variation 14.5 % (11.5-14.5); RDW Standard Deviation 44.5 fL (36.4-46.3); Red Blood Count 4.69 M/uL (4.20-5.40); White Blood Count 8.59 K/ul (4.8-10.8)
[2024-02-24] MEDS: SENNA 8.6 MG TAB PO SCH (08:28)
[2024-02-24] MEDS: dilTIAZem HCL 120 MG CAPCR PO SCH (08:30)
[2024-02-24 09:46] LABS: Calcium 8.4 mg/dl (8.6-10.3); Creatinine Clr Calc Pharmacy 30.4 ml/min; Est GFR (African American) 56.6 ml/min; Est GFR (Non-African American) 48.8 ml/min
--- NOTE | 2024-02-24 17:30 | Hospitalist Progress Note ---
Date of Service February 24, 2024 Assessment & Plan (1) Hypotension: Plan: iatrogenic - 2nd to recent diuresis as well as introduction of multiple new BP/cardiac meds s/p 2 boluses of 500cc each of NS with improved BPs yesterday however, remains mildly orthostatic today will give NS x 500cc again today repeat orthostatics in am cont diltiazem CD 120mg daily stopped aldactone hold losartan hold metoprolol succ cont imdur no further diuretics (2) Acute metabolic encephalopathy: Plan: likely 2nd to UTI she is on chronic aricept so likely has some baseline dementia as well supportive care needs better sleep schedule melatonin 3mg HS risperdal 0.25mg HS prn for severe agitation/delirium mentation overall improved (3) UTI (urinary tract infection): Plan: 2nd GNR cont rocephin 1gm daily follow cx likely over to PO abx tomorrow (4) Acute respiratory failure with hypoxemia: Plan: resolved has not recurred 2nd to suspected acute diastolic CHF both her acute hypoxic resp failure and the acute diastolic CHF are resolved stable in RA since then hold further diuresis due to #1 CTA chest neg for PE (5) Acute diastolic CHF (congestive heart failure): Plan: presented in decompensated CHF by history s/p diuresis and now compensated (actually still remains volume contracted given orthostasis) etiology of decompensated CHF?? appreciate cardiology consultation ischemic eval recommended but patient deferred such agree with med recs per cards but see #1 re: temporary holds/stopping of certain meds due to low BP (6) Hypokalemia: Plan: replaced resolved (7) Elevated troponin: Plan: peak trop 29 at minimum myocardial demand ischemia 2nd to #1, #2 no evidence of ACS see above (8) Chills: Plan: suspect it was due to brewing UTI lyme screen neg anaplasmosis and babesia screens neg; due to mildly low platelets send anaplasmosis DNA in am no evidence of pneumonia on CTA chest (9) Hypothyroidism: Plan: Continue home dose of Synthroid TSH 3.9 (10) Atrial fibrillation: Plan: she is not on chronic anticoagulation cont CCB added BB for better BP control but will stop such due to hypotension HRs controlled (11) Depression: Plan: Continue home dose of sertraline 50 mg daily (12) Hypertension: Plan: now with hypotension - see #1 above (13) Hyperlipidemia LDL goal <70: Plan: Cont lipitor 20mg daily (14) Female bladder prolapse: Plan: suspected bladder prolapse; she is s/p remote hysterectomy send to optical designer post-d/c Plan updated pt's daughter by phone this evening PT, OT may need rehab Admission and Anticipated Discharge Date Admission Date: February 21, 2024 Subjective tele overnight - pacing patient feels better overall today still orthostatic, however, leading to mild dizziness with standing mentions that when she voids or strains she gets a "bulge" in her vaginal region present for years denies dyspnea, cp, orthopnea, PND Review of Systems Review of Systems: cv - no edema of legs pulm - no cough, congestion or dyspnea or MCCRACKEN neuro - dizziness with standing GI - no N/V; ongoing constipation Physical Exam Physical Exam: gen - NAD, pleasant; looks good today neck - no JVD mouth - MMM heart - irregularly irregular, s1 s2, no murmur lungs - CTA b/l abd - soft NT ND BS+ ext - no edema, pulses 2+ b/l - chaperoned for this portion of exam by nursing - with bearing down she has protrusion at vaginal introitus c/w prolapsed bladder vs other Results & Data Results & Data Vital Signs (Past 12 Hours) Vital Signs Temp Pulse Pulse Resp BP BP Pulse Ox 02/24/24 15:48 36.3 C L 82 20 130/75 94 02/24/24 15:26 63 02/24/24 10:36 36.2 C L 79 19 127/74 94 02/24/24 08:00 02/24/24 07:47 61 02/24/24 07:38 36.4 C L 68 19 128/76 94 O2 Del Method 02/24/24 15:48 Room Air 02/24/24 15:26 02/24/24 10:36 Room Air 02/24/24 08:00 Room Air 02/24/24 07:47 02/24/24 07:38 Room Air Laboratory Results Laboratory Results - last 24 hr 02/24/24 02/24/24 06:25 06:29 WBC 8.59 RBC 4.69 Hgb 13.3 Hct 39.7 MCV 84.6 MCH 28.4 MCHC 33.5 RDW Std Deviation 44.5 RDW Coeff of Alfredo 14.5 Plt Count 126 L MPV 12.6 H Sodium 142 Potassium 4.0 Chloride 107 Carbon Dioxide 29 Anion Gap 6 BUN 35 H Creatinine 1.03 Est Cr Clr Drug Dosing 30.4 Est GFR ( Amer) 56.6 Est GFR (Non-Af Amer) 48.8 BUN/Creatinine Ratio 34.0 H Glucose 85 Calcium 8.4 L PG Care Time/CCT Total # of Minutes Spent Total Time Spent with Patient: Total time spent is greater than 50% in coordination of care (as documented) at patient's floor/unit and/or counseling patient: Coding Level of Care Code 64811 SUB INP/OBS CARE 3/50MIN Diagnoses Hypotension I95.9 Acute metabolic encephalopathy G93.41 UTI (urinary tract infection) N39.0 Acute respiratory failure with hypoxemia J96.01 Acute diastolic CHF (congestive heart failure) I50.31 Hypokalemia E87.6 Elevated troponin R79.89 Chills R68.83 Hypothyroidism E03.9 Atrial fibrillation I48.91 Depression F32.9 Primary hypertension I10 Hypertension type: primary hypertension Hyperlipidemia LDL goal <70 E78.5 Female bladder prolapse N81.10 (12) Hypertension Hypertension type: primary hypertension Qualified Code(s): I10 - Essential (primary) hypertension
[2024-02-24] MEDS: bisacodyL 10 MG SUPP PR STA (17:35)
[2024-02-24] MEDS: SODIUM CHLORIDE 0.9% 500 ML IV SCH (21:33)
[2024-02-25 07:47] LABS: BUN Creatinine Ratio 26.7 (10-20); Calcium 8.4 mg/dl (8.6-10.3); Creatinine Clr Calc Pharmacy 36.4 ml/min; Est GFR (African American) 70.4 ml/min; Est GFR (Non-African American) 60.7 ml/min; Potassium 4.4 mmol/L (3.5-5.1)
[2024-02-25] MEDS: cephALEXin 500 MG CAP PO SCH (09:19)
[2024-02-25 13:08] LABS: Basophils # (auto) 0.06 K/uL (0.00-0.20); Basophils % (auto) 0.7 %; Eosinophils # (auto) 0.21 K/uL (0.00-0.50); Eosinophils % (auto) 2.4 %; Hematocrit (blood only) 41.6 % (37.0-47.0); Hemoglobin 13.8 g/dl (12.0-16.0); Immature Granulocytes # (auto) 0.03 K/uL (0.01-0.20); Immature Granulocytes % (auto) 0.3 %; Lymphocytes # (auto) 2.23 K/uL (1.20-3.40); Lymphocytes % (auto) 25.3 %; Mean Corpuscular Hemoglobin 28.3 pg (25.0-34.0); Mean Corpuscular Hgb Conc 33.2 g/dL (32.0-36.0); Mean Corpuscular Volume 85.2 fL (80.0-100.0); Monocytes # (auto) 0.88 K/uL (0.11-0.59); Neutrophils # (auto) 5.41 K/uL (1.40-6.50); Neutrophils % (auto) 61.3 %; Platelet Count 121 K/uL (130-400); RDW Coefficient of Variation 14.5 % (11.5-14.5); RDW Standard Deviation 44.9 fL (36.4-46.3); Red Blood Count 4.88 M/uL (4.20-5.40); White Blood Count 8.82 K/ul (4.8-10.8)
--- NOTE | 2024-02-25 14:18 | Hospitalist Progress Note ---
Date of Service February 25, 2024 Assessment & Plan (1) Hypotension: Plan: resolved was iatrogenic - 2nd to recent diuresis as well as introduction of multiple new BP/cardiac meds required fluid boluses and maintenance fluid over the last 36 hours cont diltiazem CD 120mg daily cont imdur stopped aldactone hold losartan hold metoprolol succ hold lasix (2) Acute metabolic encephalopathy: Plan: likely 2nd to UTI she is on chronic aricept so likely has some baseline dementia as well supportive care needs better sleep schedule melatonin 3mg HS risperdal 0.25mg HS prn for severe agitation/delirium mentation overall improved (3) UTI (urinary tract infection): Plan: 2nd pansensitive e.coli 2 doses of rocephin given last 48 hours change to PO keflex x 5 days starting today (4) Acute respiratory failure with hypoxemia: Plan: resolved has not recurred 2nd to suspected acute diastolic CHF stable in RA since then hold further diuresis due to #1 CTA chest neg for PE patient c/o dyspnea with exertion despite normal o2 sats and normal lung exam - see below (5) Acute diastolic CHF (congestive heart failure): Plan: presented in decompensated CHF by history s/p diuresis and now compensated (actually still remains volume contracted given orthostasis) etiology of decompensated CHF?? appreciate cardiology consultation ischemic eval recommended but patient initially deferred such we discussed, in light of her MCCRACKEN this am, to consider a stress test after speaking with her family she is agreeable I discussed this with cardiology; Lexiscan nuc study advised ordered such - likely Tuesday 02/27 (6) Hypokalemia: Plan: replaced resolved (7) Elevated troponin: Plan: peak trop 29 at minimum myocardial demand ischemia 2nd to #1, #2 no evidence of ACS see above (8) Chills: Plan: suspect it was due to brewing UTI lyme screen neg anaplasmosis and babesia screens neg; due to mildly low platelets sent anaplasmosis DNA empiric doxy added while awaiting the anaplasmosis DNA test no evidence of pneumonia on CTA chest (9) Hypothyroidism: Plan: Continue home dose of Synthroid TSH 3.9 (10) Atrial fibrillation: Plan: she is not on chronic anticoagulation cont CCB added BB for better BP control but stopped such due to hypotension HRs controlled (11) Depression: Plan: Continue home dose of sertraline 50 mg daily (12) Hypertension: Plan: now with hypotension - see #1 above (13) Hyperlipidemia LDL goal <70: Plan: Cont lipitor 20mg daily (14) Female bladder prolapse: Plan: suspected bladder prolapse; she is s/p remote hysterectomy send to web operations lead post-d/c (15) Thrombocytopenia: Plan: B12 level wnl check folate while here anaplasmosis smear neg; DNA test sent & pending repeat CBC in am for stability Plan updated pt's daughters and son at bedside today they are aware of stress test for Wednesday cont gentle PT, OT in meantime if stress test is negative on Wednesday then could go to [facility] shortly after that DVT proph - heparin SC; platelets are only mildly low -- benefits of heparin SC outweight risks Admission and Anticipated Discharge Date Admission Date: February 21, 2024 Subjective no events overnight although she did not sleep well this am when walking in the hallway she felt short of breath, weak, and shaky since getting back to the room and sitting in the chair - other than weakness and feeling tired - she otherwise denies dyspnea/chest pain at rest eating well had multiple stools following a suppository last pm Review of Systems Review of Systems: gen - no fevers cv - no chest pain, no orthopnea, no edema, no PND pulm - no cough GI - no abd pain or N/V Physical Exam Physical Exam: gen - NAD, pleasant; looks tired; sitting in chair neck - no JVD mouth - MMM heart - irregularly irregular, s1 s2, no murmur lungs - CTA b/l; no rales; no wheeze abd - soft NT ND BS+ ext - no edema, pulses 2+ b/l Results & Data Results & Data Vital Signs (Past 12 Hours) Vital Signs Temp Pulse Resp BP Pulse Ox O2 Del Method 02/25/24 10:35 36.3 C L 63 20 151/70 H 94 Room Air 02/25/24 08:07 73 140/80 02/25/24 08:00 Room Air 02/25/24 07:25 71 147/85 H 02/25/24 07:22 36.2 C L 65 19 155/83 H 94 Room Air 02/25/24 02:34 36.6 C 71 18 126/62 95 Room Air Laboratory Results Laboratory Results - last 48 hr 02/25/24 02/25/24 07:11 07:14 WBC 8.82 RBC 4.88 Hgb 13.8 Hct 41.6 MCV 85.2 MCH 28.3 MCHC 33.2 RDW Std Deviation 44.9 RDW Coeff of Alfredo 14.5 Plt Count 121 L MPV 13.0 H Immature Gran % (Auto) 0.3 Neut % (Auto) 61.3 Lymph % (Auto) 25.3 [place] % (Auto) 10.0 Eos % (Auto) 2.4 Baso % (Auto) 0.7 Neut # (Auto) 5.41 Lymph # (Auto) 2.23 [place] # (Auto) 0.88 H Eos # (Auto) 0.21 Baso # (Auto) 0.06 Immature Gran # (Auto) 0.03 Sodium 141 Potassium 4.4 Chloride 109 H Carbon Dioxide 28 Anion Gap 4 BUN 23 Creatinine 0.86 Est Cr Clr Drug Dosing 36.4 Est GFR ( Amer) 70.4 Est GFR (Non-Af Amer) 60.7 BUN/Creatinine Ratio 26.7 H Glucose 82 Calcium 8.4 L PG Care Time/CCT Total # of Minutes Spent Total Time Spent with Patient: Total time spent is greater than 50% in coordination of care (as documented) at patient's floor/unit and/or counseling patient: Coding Level of Care Code 00958 SUB INP/OBS CARE 2/35MIN Diagnoses Hypotension I95.9 Acute metabolic encephalopathy G93.41 UTI (urinary tract infection) N39.0 Acute respiratory failure with hypoxemia J96.01 Acute diastolic CHF (congestive heart failure) I50.31 Hypokalemia E87.6 Elevated troponin R79.89 Chills R68.83 Hypothyroidism E03.9 Atrial fibrillation I48.91 Depression F32.9 Primary hypertension I10 Hypertension type: primary hypertension Hyperlipidemia LDL goal <70 E78.5 Female bladder prolapse N81.10 Thrombocytopenia D69.6 (12) Hypertension Hypertension type: primary hypertension Qualified Code(s): I10 - Essential (primary) hypertension
[2024-02-25] MEDS: DOXYCYCLINE HYCLATE 100 MG CAP PO STA (15:49)
[2024-02-25] MEDS: DOXYCYCLINE HYCLATE 100 MG CAP PO SCH (20:35)
[2024-02-26 07:27] LABS: Hematocrit (blood only) 38.9 % (37.0-47.0); Mean Corpuscular Hemoglobin 28.3 pg (25.0-34.0); Mean Corpuscular Hgb Conc 33.4 g/dL (32.0-36.0); Mean Corpuscular Volume 84.7 fL (80.0-100.0); Mean Platelet Volume 12.5 fL (9.4-12.4); Platelet Count 125 K/uL (130-400); RDW Coefficient of Variation 14.4 % (11.5-14.5); RDW Standard Deviation 43.9 fL (36.4-46.3); Red Blood Count 4.59 M/uL (4.20-5.40); White Blood Count 7.43 K/ul (4.8-10.8)
[2024-02-26] MEDS: FUROSEMIDE 20 MG TAB PO SCH (11:47)
--- NOTE | 2024-02-26 20:42 | Hospitalist Progress Note ---
Date of Service February 26, 2024 Assessment & Plan (1) Hypotension: Plan: resolved was iatrogenic - 2nd to recent diuresis as well as introduction of multiple new BP/cardiac meds required fluid boluses and maintenance fluid over the last few days with resolution cont diltiazem CD 120mg daily cont imdur stopped aldactone hold losartan hold metoprolol succ resume lasix today (2) Acute metabolic encephalopathy: Plan: likely 2nd to UTI resolved mentation back at baseline she is on chronic aricept so likely has some baseline dementia as well supportive care cont scheduled melatonin 3mg HS risperdal 0.25mg HS prn for severe agitation/delirium but has not required such (3) UTI (urinary tract infection): Plan: 2nd pansensitive e.coli 2 doses of rocephin given day #2 of 5 keflex (4) Acute respiratory failure with hypoxemia: Plan: resolved 2nd to suspected acute diastolic CHF stable in RA since then CTA chest neg for PE (5) Acute diastolic CHF (congestive heart failure): Plan: presented in decompensated CHF by history s/p diuresis and now compensated (actually still remains volume contracted given orthostasis) etiology of decompensated CHF?? appreciate cardiology consultation ischemic eval recommended but patient initially deferred such we discussed, in light of her MCCRACKEN this am, to consider a stress test after speaking with her family she is agreeable I discussed this with cardiology; Lexiscan nuc study advised ordered such - likely Tuesday 02/27 (6) Hypokalemia: Plan: replaced resolved (7) Elevated troponin: Plan: peak trop 29 at minimum myocardial demand ischemia 2nd to #1, #2 no evidence of ACS see above (8) Hypothyroidism: Plan: Continue home dose of Synthroid TSH 3.9 (9) Atrial fibrillation: Plan: she is not on chronic anticoagulation cont CCB HRs controlled (10) Depression: Plan: Continue home dose of sertraline 50 mg daily (11) Hypertension: Plan: now with hypotension - see #1 above (12) Hyperlipidemia LDL goal <70: Plan: Cont lipitor 20mg daily (13) Female bladder prolapse: Plan: suspected bladder prolapse; she is s/p remote hysterectomy send to composite assembler post-d/c (14) Thrombocytopenia: Plan: B12 level wnl folate wnl anaplasmosis smear neg; DNA test sent & pending on doxy 100mg BID empirically until anaplasmosis DNA test is back repeat CBC in am for stability Plan updated pt's daughters and son at bedside yesterday they are aware of stress test for Wednesday cont gentle PT, OT in meantime if stress test is negative on Wednesday then could go to [facility] shortly after that DVT proph - heparin SC; platelets are only mildly low -- benefits of heparin SC outweigh risks Admission and Anticipated Discharge Date Admission Date: February 21, 2024 Subjective slept good last pm feels good today normal appetite denies ANY dyspnea or MCCRACKEN no chest pain no dizziness/lightheadedness Physical Exam Physical Exam: gen - NAD, pleasant; looks better today; sitting in chair neck - no JVD mouth - MMM heart - irregularly irregular, s1 s2, no murmur lungs - CTA b/l; no rales; no wheeze abd - soft NT ND BS+ ext - no edema, pulses 2+ b/l Results & Data Results & Data Vital Signs (Past 12 Hours) Vital Signs Temp Pulse Pulse Resp BP Pulse Ox O2 Del Method 02/26/24 19:00 36.6 C 69 16 160/74 H 96 Room Air 02/26/24 16:25 36.6 C 97 H 16 117/67 95 Room Air 02/26/24 16:00 62 02/26/24 11:27 36.5 C 76 16 155/68 H 95 Room Air Laboratory Results Laboratory Results - last 24 hr 02/26/24 06:49 WBC 7.43 RBC 4.59 Hgb 13.0 Hct 38.9 MCV 84.7 MCH 28.3 MCHC 33.4 RDW Std Deviation 43.9 RDW Coeff of Alfredo 14.4 Plt Count 125 L MPV 12.5 H PG Care Time/CCT Total # of Minutes Spent Total Time Spent with Patient: Total time spent is greater than 50% in coordination of care (as documented) at patient's floor/unit and/or counseling patient: Coding Level of Care Code 28148 SUB INP/OBS CARE 09/16MIN Diagnoses Hypotension I95.9 Acute metabolic encephalopathy G93.41 UTI (urinary tract infection) N39.0 Acute respiratory failure with hypoxemia J96.01 Acute diastolic CHF (congestive heart failure) I50.31 Hypokalemia E87.6 Elevated troponin R79.89 Hypothyroidism E03.9 Atrial fibrillation I48.91 Depression F32.9 Primary hypertension I10 Hypertension type: primary hypertension Hyperlipidemia LDL goal <70 E78.5 Female bladder prolapse N81.10 Thrombocytopenia D69.6 (11) Hypertension Hypertension type: primary hypertension Qualified Code(s): I10 - Essential (primary) hypertension
[2024-02-27 08:15] LABS: Basophils # (auto) 0.05 K/uL (0.00-0.20); Basophils % (auto) 0.7 %; Eosinophils # (auto) 0.18 K/uL (0.00-0.50); Eosinophils % (auto) 2.4 %; Hematocrit (blood only) 43.1 % (37.0-47.0); Hemoglobin 14.5 g/dl (12.0-16.0); Immature Granulocytes # (auto) 0.03 K/uL (0.01-0.20); Immature Granulocytes % (auto) 0.4 %; Lymphocytes # (auto) 2.35 K/uL (1.20-3.40); Lymphocytes % (auto) 30.8 %; Mean Corpuscular Hemoglobin 28.2 pg (25.0-34.0); Mean Corpuscular Hgb Conc 33.6 g/dL (32.0-36.0); Mean Corpuscular Volume 83.9 fL (80.0-100.0); Mean Platelet Volume 12.5 fL (9.4-12.4); Monocytes # (auto) 0.64 K/uL (0.11-0.59); Monocytes % (auto) 8.4 %; Neutrophils # (auto) 4.37 K/uL (1.40-6.50); Neutrophils % (auto) 57.3 %; Platelet Count 159 K/uL (130-400); RDW Coefficient of Variation 14.4 % (11.5-14.5); RDW Standard Deviation 43.9 fL (36.4-46.3); Red Blood Count 5.14 M/uL (4.20-5.40); White Blood Count 7.62 K/ul (4.8-10.8)
[2024-02-27 08:42] LABS: BUN Creatinine Ratio 23.1 (10-20); Calcium 9.4 mg/dl (8.6-10.3); Creatinine Clr Calc Pharmacy 34.4 ml/min; Est GFR (African American) 65.7 ml/min; Est GFR (Non-African American) 56.7 ml/min; Potassium 4.4 mmol/L (3.5-5.1)
--- NOTE | 2024-02-27 20:08 | Hospitalist Progress Note ---
Date of Service February 27, 2024 Assessment & Plan (1) Hypotension: Plan: resolved was iatrogenic - 2nd to recent diuresis as well as introduction of multiple new BP/cardiac meds required fluid boluses and maintenance fluid last week with resolution cont diltiazem CD 120mg daily stopped imdur stopped aldactone stopped losartan stopped metoprolol succ had resumed lasix x 2 days but given her dizziness today will stop moving forward use lasix PRN (2) Acute metabolic encephalopathy: Plan: likely 2nd to UTI resolved mentation back at baseline she is on chronic aricept so likely has some baseline dementia as well supportive care cont scheduled melatonin 3mg HS risperdal 0.25mg HS prn for severe agitation/delirium but has not required such (3) UTI (urinary tract infection): Plan: 2nd pansensitive e.coli 2 doses of rocephin given day #3 of 5 keflex (4) Acute respiratory failure with hypoxemia: Plan: resolved 2nd to suspected acute diastolic CHF stable in RA since then CTA chest neg for PE (5) Acute diastolic CHF (congestive heart failure): Plan: presented in decompensated CHF by history s/p diuresis and now compensated (actually still remains volume contracted given orthostasis) etiology of decompensated CHF?? appreciate cardiology consultation ischemic eval recommended but patient initially deferred such we discussed, in light of her MCCRACKEN this am, to consider a stress test after speaking with her family she is agreeable I discussed this with cardiology; Bib nuc study advised ordered such - plan is for tomorrow, Tuesday 02/27 NPO after MN tonight for such (6) Hypokalemia: Plan: replaced resolved (7) Elevated troponin: Plan: peak trop 29 at minimum myocardial demand ischemia 2nd to #1, #2 no evidence of ACS see above (8) Hypothyroidism: Plan: Continue home dose of Synthroid TSH 3.9 (9) Atrial fibrillation: Plan: she is not on chronic anticoagulation cont CCB HRs controlled even w/ activity (10) Depression: Plan: Continue home dose of sertraline 50 mg daily (11) Hypertension: Plan: see above (12) Hyperlipidemia LDL goal <70: Plan: Cont lipitor 20mg daily (13) Female bladder prolapse: Plan: suspected bladder prolapse; she is s/p remote hysterectomy 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 - will repeat this before d/c Plan updated pt's daughter and son at bedside today they are aware of stress test for Wednesday if stress test is negative on Wednesday then could go to [facility] shortly after that DVT proph - heparin SC Admission and Anticipated Discharge Date Admission Date: February 21, 2024 Subjective patient felt "dizzy" today with standing up had mild headache, was weak, had nausea sat back down in bed symptoms subsided a short time later since then NO symptoms - no dyspnea, cp, headache, abd pain, nausea/emesis main complaint is fatigue even if she sleeps well takes naps most days family states when they take her out in the community they use a wheelchair Review of Systems Review of Systems: gen - no fevers cv - no cp, no orthopnea, no edema pulm - no dyspnea or MCCRACKEN Physical Exam Physical Exam: gen - NAD, pleasant; laying in bed; looks similar to yesterday neck - no JVD mouth - MMM heart - irregularly irregular, s1 s2, no murmur lungs - CTA b/l; no rales; no wheeze abd - soft NT ND BS+ ext - no edema, pulses 2+ b/l Results & Data Results & Data Vital Signs (Past 12 Hours) Vital Signs Temp Pulse Pulse Resp BP Pulse Ox O2 Del Method 02/27/24 19:35 36.5 C 70 16 133/70 95 Room Air 02/27/24 14:59 36.7 C 67 18 128/61 95 Room Air 02/27/24 13:55 81 02/27/24 10:14 36.4 C L 71 16 128/74 95 Room Air 02/27/24 10:11 74 128/74 Laboratory Results Laboratory Results - last 24 hr 02/27/24 02/27/24 07:52 10:15 WBC 7.62 RBC 5.14 Hgb 14.5 Hct 43.1 MCV 83.9 MCH 28.2 MCHC 33.6 RDW Std Deviation 43.9 RDW Coeff of Alfredo 14.4 Plt Count 159 MPV 12.5 H Immature Gran % (Auto) 0.4 Neut % (Auto) 57.3 Lymph % (Auto) 30.8 Creek % (Auto) 8.4 Eos % (Auto) 2.4 Baso % (Auto) 0.7 Neut # (Auto) 4.37 Lymph # (Auto) 2.35 Creek # (Auto) 0.64 H Eos # (Auto) 0.18 Baso # (Auto) 0.05 Immature Gran # (Auto) 0.03 Sodium 139 Potassium 4.4 Chloride 105 Carbon Dioxide 27 Anion Gap 7 BUN 21 Creatinine 0.91 Est Cr Clr Drug Dosing 34.4 Est GFR ( Amer) 65.7 Est GFR (Non-Af Amer) 56.7 BUN/Creatinine Ratio 23.1 H Glucose 83 POC Glucose 83 Calcium 9.4 Random Cortisol 14.20 CMV IgM Ab Pending CMV IgG Ab/TORCH Pending EBV Capsid Ag IgG Ab Pending EBV Capsid Ag IgM Ab Pending EBV Nuclear Antigen Ab Pending EBV Antibody Interp Pending PG Care Time/CCT Total # of Minutes Spent Total Time Spent with Patient: Total time spent is greater than 50% in coordination of care (as documented) at patient's floor/unit and/or counseling patient: Coding Level of Care Code 75805 SUB INP/OBS CARE 2/35MIN Diagnoses Hypotension I95.9 Acute metabolic encephalopathy G93.41 UTI (urinary tract infection) N39.0 Acute respiratory failure with hypoxemia J96.01 Acute diastolic CHF (congestive heart failure) I50.31 Hypokalemia E87.6 Elevated troponin R79.89 Hypothyroidism E03.9 Atrial fibrillation I48.91 Depression F32.9 Primary hypertension I10 Hypertension type: primary hypertension Hyperlipidemia LDL goal <70 E78.5 Female bladder prolapse N81.10 Thrombocytopenia D69.6 Headache R51.9 (11) Hypertension Hypertension type: primary hypertension Qualified Code(s): I10 - Essential (primary) hypertension
[2024-02-28] MEDS: OPTIRAY 320 125ml IV ONE (09:55)
[2024-02-28] MEDS: REGADENOSON 0.4 MG/5 ML SYR IV ONE (11:02)
--- NOTE | 2024-02-28 11:58 | CT Scan Report ---
CT angio neck with con CLINICAL HISTORY: 88 years-old Female with headache, h/o carotid aneursym; re-eval carotids. Acute headache COMPARISON STUDY: 08/27/2022 TECHNIQUE: Following the IV administration of 1 20 mL of Optiray, CT angiogram of the neck was perfor med from the aortic arch to the skull base. Images are reviewed in the axial, sagittal, and coronal p lanes. 3-D MIPS images are created and assessed. IV contrast was administered without complication. A ll measurements were calculated based on NASCET criteria. A dose lowering technique was utilized adh ering to the principles of ALARA. CT DOSE: 347.93 mGy.cm FINDINGS: Atherosclerosis of the thoracic aortic arch. Patency of the innominate and image subclavian arteries. The right common carotid artery is widely patent, as are the right internal and external carotid art eries. Calcified plaque is noted in the carotid bulb. The right internal carotid artery demonstrates a beaded appearance. The left common carotid artery is widely patent, as are the left internal and ex ternal carotid arteries. Atherosclerotic plaque is noted in the carotid bulb. The left internal carot id artery demonstrates a beaded appearance. The vertebral arteries are widely patent bilaterally and codominant. The visualized intracranial vessels at the skull base are patent. 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 This appears unchan ged. 10 mm hypodense left-sided thyroid nodule. Unremarkable soft tissues. Degenerative changes of the cer vical spine. IMPRESSION: 1. Unchanged size of the 13 mm saccular aneurysm involving the cavernous segment of the right interna l carotid artery. 2. No dissection, high-grade stenosis or arterial dissection. 3. Unchanged beaded and irregular morphology of the internal carotid arteries which may be secondary to atherosclerosis versus fibromuscular dysplasia. ACT 112: Negative or not required by law. The above report was generated using voice recognition software. It may contain grammatical, syntax o r spelling errors. Electronically signed by: Victorino Cuadra M.D. 02/28/2024 11:56 AM
--- NOTE | 2024-02-28 14:58 | Discharge Summary ---
Date of Service February 28, 2024 Admission HPI Per Admitting Provider 88-year-old female who presented to the emergency department for an evaluation of shortness of breath. The patient has been describing shoulder pain as well as difficulty breathing. Symptoms began over the last 24 hours. She states that she has been unable to lie flat and has been noticing some swelling in both legs. The patient denies having any nausea or vomiting. She was having significant shortness of breath and was placed on BiPAP prior to arrival. She denies having any noncompliance with her medications. She does have a history of atrial fibrillation. She takes ASA, she was treated with nebs, she is currently on Ventimask , reports feeling better, received IV Lasix, as per family she has a lot of wheezing at home and while transported to ER. Currently she has no wheezing or cough, no chest pain, no SOB, reports having chills, no pneumonia on CT, no PE, has pulmonary scarring vs atelectasis, EKG Atrial fibrillation with frequent ventricular-paced complexes ST & Marked T wave abnormality consider anterolateral ischemia Prolonged QT Abnormal ECG Discharge Exam gen - NAD, pleasant; laying in bed; looks similar to yesterday neck - no JVD mouth - MMM heart - irregularly irregular, s1 s2, no murmur lungs - CTA b/l; no rales; no wheeze abd - soft NT ND BS+ ext - no edema, pulses 2+ b/l Discharge Data Allergies Allergy/AdvReac Type Severity Reaction Status Date / Time oxycodone AdvReac Intermediate HALLUCINATI Verified 02/21/24 17:24 ONS morphine AdvReac Unknown DELIRIUM Verified 02/21/24 17:24 Consultations 02/21/24 18:43 ED Decision to Admit Stat 02/21/24 19:38 Consult Cardiology Routine Consult Pulmonology Routine Ordered Studies 02/21/24 17:06 CT angio chest PE protocol Stat 02/28/24 09:10 CT angio neck with con Routine Hospital Course (1) Hypotension: resolved was iatrogenic - 2nd to recent diuresis as well as introduction of multiple new BP/cardiac meds required fluid boluses and maintenance fluid last week with resolution cont diltiazem CD 120mg daily stopped imdur stopped aldactone stopped losartan stopped metoprolol succ had resumed lasix x 2 days but given her dizziness today will stop moving forward use lasix PRN (2) Acute metabolic encephalopathy: likely 2nd to UTI resolved mentation back at baseline she is on chronic aricept so likely has some baseline dementia as well supportive care cont scheduled melatonin 3mg HS risperdal 0.25mg HS prn for severe agitation/delirium but has not required such (3) UTI (urinary tract infection): 2nd pansensitive e.coli 2 doses of rocephin given day #3 of 5 keflex (4) Acute respiratory failure with hypoxemia: resolved 2nd to suspected acute diastolic CHF stable in RA since then CTA chest neg for PE (5) Acute diastolic CHF (congestive heart failure): presented in decompensated CHF by history s/p diuresis and now compensated (actually still remains volume contracted given orthostasis) etiology of decompensated CHF?? appreciate cardiology consultation ischemic eval recommended but patient initially deferred such we discussed, in light of her MCCRACKEN this am, to consider a stress test after speaking with her family she is agreeable I discussed this with cardiology; Lexiscan nuc study advised ordered such - plan is for tomorrow, Tuesday 02/27 NPO after MN tonight for such (6) Hypokalemia: replaced resolved (7) Elevated troponin: peak trop 29 at minimum myocardial demand ischemia 2nd to #1, #2 no evidence of ACS see above (8) Hypothyroidism: Continue home dose of Synthroid TSH 3.9 (9) Atrial fibrillation: she is not on chronic anticoagulation cont CCB HRs controlled even w/ activity (10) Depression: Continue home dose of sertraline 50 mg daily (11) Hypertension: see above (12) Hyperlipidemia LDL goal <70: Cont lipitor 20mg daily (13) Female bladder prolapse: suspected bladder prolapse; she is s/p 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 acute hypoxic respiratory failure - due to pulmonary edema - fully resolved 2. uncontrolled high blood pressure - resolved 3. urinary tract infection - resolving 4. episodes of dizziness - due to low blood pressure standing up - improved 5. chronic fatigue 6. carotid artery aneurysm - 13mm - stable on CT neck this admission (no change from prior CT in the past) 7. hypothyroidism 8. mildly low platelets - resolved 9. elevated troponin level - likely due to #1, #2; stress test planned but then canceled 10. severely low magnesium level - resolved; was likely due to your chronic diuretic (chlorthalidone) Activity: Resume your previous activity Non-emergency contact: Primary Care Provider and Loss Prevention And Safety Manager Call non-emergency contact if: you have any medication questions and your symptoms worsen Follow-up/Referrals: Daniel Carr MD [Physician] - (2 weeks to recheck heart issues ) Edgar Fine PA-C [Primary Care Provider] - (1 week after discharge from [facility] ) Diet: Heart Healthy Addtl Attending Provider Instructions: Mrs Monroy was hospitalized after presenting with shortness of breath and shakiness. It appeared Mrs Monroy had fluid in the lungs (pulmonary edema) which was making it hard to breath. Her blood pressure was also severely elevated (systolic of 200) upon presentation to the hospital. Symptoms improved with diuretics (lasix), oxygen, and blood pressure medicine. We did not find any heart attack. [facility] saw you in consult. It was uncertain why your blood pressures jenn so dramatically. However, it is likely that the high blood pressures strained your heart causing the fluid to build-up in the lungs. Stress test was recommended for your heart. Although preparations were being made to perform a stress test this was canceled. In addition to the above we treated you for urinary tract infection, low magnesium, low blood pressure (later in the stay your pressure dropped), and constipation. Each of these issues are improved. Finally, we rechecked your carotid arteries and the aneurysm is stable. The blood flow thru the carotids is also normal. Recommendations - 1. repeat BMP + magnesium in 3-4 days for stability. 2. lasix (furosemide) 20mg daily NEEDED for lower extremity edema/swelling. 3. STOP chlorthalidone. 4. STOP potassium supplement. 5. LOWER your diltiazem CD to 180mg daily (you had been 240mg). 6. follow-up appts - see separate section. It was our pleasure to care for you! -Dr Laura Pending Studies at Discharge: Yes Studies:: anaplasmosis DNA test; CMV, EBV titers Stand-Alone Forms: My [facility] Skilled Items Patient informed of condition?: Yes DNR: Yes Discharge Level of Care: Acute rehab Communicable Disease: No Discharge Prognosis: Stable Lines: None Urinary Catheter: No Medications and DC Order Prescriptions: New cephalexin 500 mg Capsule 500 mg PO BID Qty: 3 0RF Rx Instructions: take PM of 02/27, then BID on 02/28, then stop. doxycycline hyclate 100 mg Capsule 100 mg PO BID 10 Days Qty: 20 0RF melatonin 3 mg Tablet 3 mg PO HS Qty: 30 0RF magnesium oxide 400 mg magnesium tablet 400 mg PO DAILY Qty: 30 0RF furosemide [Lasix] 20 mg tablet 20 mg PO DAILY PRN (Reason: edema/swelling of legs) Qty: 30 0RF Continued donepezil 5 mg tablet 5 mg PO DAILY atorvastatin 20 mg tablet 20 mg PO DAILY@2100 zolpidem 5 mg tablet 5 mg PO DAILY@2100 sertraline 50 mg tablet 50 mg PO DAILY@2099 docusate sodium 100 mg Tablet 200 mg PO DAILY@2099 cyanocobalamin (vitamin B-12) 1,000 mcg/mL Kit 1,000 mcg IM MONTHLY sennosides [senna] 8.6 mg Tablet 8.6 mg PO Q2D aspirin 325 mg Tablet 325 mg PO DAILY@2100 famotidine [Pepcid] 40 mg tablet 40 mg PO DAILY@2100 omeprazole 40 mg capsule,delayed release(/EC) 40 mg PO DAILY@1000 levothyroxine [Synthroid] 75 mcg tablet 75 mcg PO DAILY@1000 pregabalin [Lyrica] 50 mg capsule 100 mg PO DAILY@1000,2100 cranberry extract 500 mg Tablet 1,000 mg PO DAILY Rx Instructions: administer with meals ibandronate 150 mg tablet 150 mg PO .MONTHLY ferrous sulfate 325 mg (65 mg iron) tablet 325 mg PO BID Changed diltiazem HCl 180 mg capsule,extended release 24hr 180 mg PO DAILY Qty: 30 1RF Discontinued chlorthalidone 25 mg tablet 25 mg PO DAILY potassium chloride 10 mEq capsule, extended release 10 meq PO DAILY Discharge Orders: Discharge Order (Routine); Ordered 02/28/24 Ordered By: Roberto Laura Admission Data Admit Date/Time: 02/21/24 19:39 Attending Provider: Roberto Laura Admit Provider: Kayla Coreas Primary Care Provider: Edgar Fine Other Providers: Kayla Coreas; Tommy Mackay; Michael Stover; Louie Russell; Juno Orosco; Mendoza Garcia; Gisselle Arreola; Kiera Gaspar; Mike Louis; Wil Orellana; Penelope Oconnor; [facility] Other Interventions: Discharge Summary Assessment (RN) Last Done: 02/28/24 14:46 Coding Diagnoses Hypotension I95.9 Acute metabolic encephalopathy G93.41 UTI (urinary tract infection) N39.0 Acute respiratory failure with hypoxemia J96.01 Acute diastolic CHF (congestive heart failure) I50.31 Hypokalemia E87.6 Elevated troponin R79.89 Hypothyroidism E03.9 Atrial fibrillation I48.91 Depression F32.9 Primary hypertension I10 Hypertension type: primary hypertension Hyperlipidemia LDL goal <70 E78.5 Female bladder prolapse N81.10 Thrombocytopenia D69.6 Headache R51.9
--- NOTE | 2024-02-28 16:48 | Myocardial Perfusion Study ---
Date of Service February 28, 2024 Myocardial Perfusion Study k Myocardial Perfusion Study Report Resting myocardial perfusion imaging only: Brief description: Rest portion-at 7:35 AM the patient was injected with 11.0 mCi of technetium 99m Cardiolite IV. 1 hour following injection, myocardial perfusion imaging was performed in multiple projections. Stress portion-baseline EKG, blood pressure, and heart rate were obtained. However, patient declined Lexiscan injection for stress test. Therefore, no stress imaging was performed. Findings: 1. Baseline heart rate 83 bpm, blood pressure 133/81 mmHg, and EKG demonstrating atrial fibrillation with Voltage criteria for LVH and intermittent ventricular pacing. 2. Resting myocardial perfusion imaging raw data demonstrates no significant sources of artifact. There are no MPI defects at rest to suggest myocardial infarction. 3. Gated myocardial perfusion imaging was not performed. [facility] Myocardial perfusion code Indication for Procedure (1) Hypotension: (2) Dyspnea: Procedure Code Procedure 1: Myocardial Perfusion Codes: 36240 Cardiovascular Stress Test, multiple Procedure 2: Myocardial Perfusion Codes: 91074 Cardiovascular Stress Test, supervision only Procedure 3: Myocardial Perfusion Codes: 32192 Cardiovascular Stress Test, interpretation and report
[2024-02-29 13:52] LABS: EBV Virus Capsid Ag IgG Ab >750.00 U/mL
[2024-03-01 15:43] LABS: CMV IgM Antibody <30.00 AU/mL
== END 2024-02-28 15:46 | DRG 291 ==
LOC: ED 14:39 → SUATTDRO 19:39 → 2S 19:39

== ENCOUNTER 2024-04-09 19:06 | Inpatient (IN) ==
--- OUTSIDE RECORDS SUMMARY | 2024-04-09 19:10 | External Medical Summary | Continuity of Care Document ---
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 Operator [phone] Problems Active Problems Provider Date Essential hypertension Edgar Fine PA-C O nset: 05/10/2017 Obstructive sleep apnea syndrome Edgar franklin PA-C Onset: 05/10/2017 Polyneuropathy Edgar Fine PA-C Onset: 0 05/10/2017 Chronic atrial fibrillation Olegario Nolasco Onset: 05/10/2017 Insomnia Edgar Fine PA-C Onset: 0 05/10/2017 Hypothyroidism Edgar iFne PA-C Onset: 0 05/10/2017 Vitamin B deficiency Edgar Fine PA-C Ons et: 06/14/2017 Permanent cardiac pacemaker Onse t: 07/07/2016 Note: Document: 05/03/17 Arnol C ardiology Consult [facility] Gastro-esophageal reflux dis ease with esophagitis Edgar Fine PA-C Onset: 12/29/2017 Enthesopathy of knee Edgar Fine PA-C Ons et: 03/30/2018 Fibromyalgia Edgar Fine PA-C Onset: 0 03/30/2018 Moderate recurrent major depression Edgar Severino PA-C Onset: 06/20/2018 Aneurysm of artery of neck Josemanuel James JR, MD Onset: 11/21/2018 Trigeminal neuralgia Edgar Fine PA-C Ons et: 11/25/2018 Cervical disc disorder Edgar Fine PA-C O nset: 11/25/2018 Dislocations/sprains/strains Edgar Fine PA-C Onset: 09/20/2019 Orbital cellulitis Edgar Fine PA-C Onset : 04/25/2019 Neoplastic disease Edgar Fine PA-C Onset : 05/04/2019 Cellulitis of periorbital region Edgar franklin PA-C Onset: 07/03/2019 Social History Type Date Description Comments Sex Unknown Tobacco Use Reviewed: 11/09/23 Never Smoked Cigarette s Tobacco Use Reviewed: 11/09/23 Never Smoked Cigars Tobacco Use Reviewed: 11/09/23 Never Smoked A Pipe Smoking Status Reviewed: 11/09/23 Never Smoked A Pipe Smokeless Tobacco 11/09/2023 Never Used Smokeless To bacco ETOH Use Denies alcohol use Recreational Drug Use Denies Drug Use Allergies and adverse reactions Active Allergies Criticality Reaction | Severity Comments Date Hydralazine Unable to assess criticality 04/23/2017 Aspirin Unable to assess criticality 04/23/2017 Oxycodone Unable to assess criticality 04/27/2017 Medications Active Medications SIG Qnty Indications Order ing Provider Date Zolpidem Jnialrdu48oh Tablets take half to 1 tablet by mouth at bedtime as needed for insomnia 30tabs Alejandra Bridges MD 03/16/2024 Qbsqiy8hs TBPK use as directed 21units Oxana Oropeza MD 03/13/2024 Diltiazem HCL HU887mv Caps ER 24HR Take 1 Capsule By Mouth Every Day 90caps Alejandra Bridges MD 03/08/2024 Ferrous Ladiyvg035(65Fe) mg Tablets Take 1 Tablet By Mouth Twice A Day 180tabs Alejandra Bridges MD 12/03/2022 Zasyoncyut40iw Tablets Take 1 Tablet Once Every Night 90tabs K21.0 Alejandra Bridges MD 10/15/2022 Aspirin 81 Low Zqwz80de Chewtabs Chew 4 tabs 1 by mouth every day 360units Alejandra Bridges MD 07/29/2022 Atorvastatin Kpjgrln48ss Tablets Take 1 Tablet By Mouth Every Evening 90tabs Alejandra Bridges MD 07/29/[address] Take 1 Capsule By Mouth Every Day 90mirta Bridges MD 07/29/2022 Cpap Machine, Mask, Tubing, And FilterDevice use nightly 8cm-20cm h2o pressure - nasal pillow - patient can't tolerate face mask 10units Alejandra Bridges MD 07/07/2021 Rollator Wheeled Walker With Seat And Brakes Use at all times while ambulating 1units Alejandra Bridges MD 07/02/2021 Donepezil HCL5mg Tablets Take 1 Tablet By Mouth Every Day 90tabs Linwood Ramey MD 12/01/2020 Levothyroxine Yhrpbm98tua Tablets Take 1 Tablet By Mouth Every Day 90tabs Josemanuel James JR, MD 11/01/2017 Senna-Time8.6mg Tablets Take One By Mouth Twice A Day as Needed 180tabs Josemanuel James JR, MD Xxjpkydbllhwvf5703ay g/ML Solution Inject 1ML Intramuscular Every Monthly 3units Linwood Ramey MD History Medications Doxycycline Frvhlyq303bj Capsules 1 by mouth twice a day for 10 days 20caps Alejandra Bridges MD 03/13/2024 - 03/16/2024 Magnesium Oxide (Elemental)400mg Tablets 1 by mouth every day 90tabs Alejandra Bridges MD 03/08/2024 - 03/22/2024 Tvmghfvoe0cy Capsules 1 @ at bedtime Unk nown 03/08/2024 - 03/16/2024 Potassium Chloride IR02Hja Capsules ER Take 1 Capsule By Mouth Every Day 90mirta Bridges MD 01/06/2024 - 03/13/2024 Medications Administered in Office Medication SIG Qnty Indications Ordering Provider Date Injection Vitamin B-12 Up To 1000 mcgInjection Edgar Fine PA-C 04/06/2023 Injection Vitamin B-12 Up To 1000 mcgInjection Edgar Fine PA-C 07/29/2022 Injection Vitamin B-12 Up To 1000 mcgInjection Edgar D. EDA Fine 04/02/2022 Injection Vitamin B-12 Up To 1000 mcgInjection Lab - [facility] 2021 Injection Vitamin B-12 Up To 1000 mcgInjection Edgar D. EDA Fine 12/01/2021 Injection Vitamin B-12 Up To 1000 mcgInjection Lab - [facility] 2021 Injection Vitamin B-12 Up To 1000 mcgInjection Edgar D. EDA Fine 07/07/2021 Injection Vitamin B-12 Up To 1000 mcgInjection Edgar D. EDA Fine 05/23/2021 Injection Vitamin B-12 Up To 1000 mcgInjection Edgar D. EDA Fine 03/04/2021 Injection Kenalog 10 MG [facility] [id number] Edgar D. Olegario Fine 03/04/2021 Injection Vitamin B-12 Up To 1000 mcgInjection Edgar D. EDA Fine 2019 Injection Vitamin B-12 Up To 1000 mcgInjection Edgar D. EDA Fine 09/20/2019 Injection Vitamin B-12 Up To 1000 mcgInjection Edgar D. EDA Fine 05/04/2019 Injection Vitamin B-12 Up To 1000 mcgInjection Edgar D. EDA Fine 12/20/2018 Injection Vitamin B-12 Up To 1000 mcgInjection Edgar D. EDA Fine 11/28/2018 Injection Vitamin B-12 Up To 1000 mcgInjection Edgar D. EDA Fine 11/02/2018 Injection Vitamin B-12 Up To 1000 mcgInjection Edgar D. EDA Fine 07/18/2018 Injection Vitamin B-12 Up To 1000 mcgInjection Edgar D. EDA Fine 06/20/2018 Injection Vitamin B-12 Up To 1000 mcgInjection Edgar D. EDA Fine 03/30/2018 Injection Vitamin B-12 Cyanocobalamin To 1000 mcgInjection Edgar D. EDA Fine 03/2018 Injection Vitamin B-12 Cyanocobalamin To 1000 mcgInjection Edgar D. Lazorka, PA-C 01/22 Injection Vitamin B-12 Up To 1000 mcgInjection Edgar Fine PA-C 08/10/2017 Injection Vitamin B-12 Up To 1000 mcgInjection Edgar Fine PA-C 06/14/2017 Injection Vitamin B-12 Cyanocobalamin To 1000 mcgInjection Edgar Fine PA-C 05/24 Immunizations CPT Code Status Date Vaccine Lot # [id number] Given 07/29/2022 Influenza Virus Vaccine, Quadrivalent (Cciiv4), Derived From Cell [id number] U-FLU Given 07/29/2022 Influenza,Unspecified as1 [id number] 21458 Given 12/16/2021 Moderna Covid-1 9 Vaccine 50mcg Booster-EMR Doc Only [id number] 38721 Given 07/22/2021 Moderna Covid-1 9 Vaccine 50mcg Booster-EMR Doc Only [id number] U-FLU Given 07/07/2021 Influenza,Unspecified 35086 Given 07/07/2021 Influenza Vaccine High Do se 0.5ML Age 65 & > [id number] 77111 Given 10/31/2020 Moderna Sars-Co v-2 (Cov-19) vacc,100 mcg/ 0.5 mL 12Y+EMR Doc Only [id number] 35689 Given 10/03/2020 Moderna Sars-Co v-2 (Cov-19) vacc,100 mcg/ 0.5 mL 12Y+EMR Doc Only [id number] 09590 Given 05/02/2020 Influenza Vaccine High Do se 0.5ML Age 65 & > [id number] Given 08/02/2019 Influenza Vacci ne-Administered at another facility U-FLU Given 08/02/2019 Influenza,Unspecified 96509 Given 11/02/2018 Pneumococcal Vaccine/Pneu movax 23 [id number] U-FLU Given 06/20/2018 Influenza,Unspecified 11044 Given 06/20/2018 Influenza Vacci ne Quadrivalent Preser/Antibiotic Free Im Use [id number] 28691 Given 03/30/2018 Tdap (Tetanus, diphtheria & acel. pertussis) Adacel or Boostrix [id number] 74786 Given 08/10/2017 Pneumococcal Conjugate-Pr evnar 13 [id number] 81258 Given 06/14/2017 Influenza Vacci ne Quadrivalent Preser/Antibiotic Free Im Use [id number] U-FLU Given 07/01/2016 Influenza,Unspecified 47592 Given 07/01/2016 Pneumococcal Vaccine/Pneu movax 23 [id number] Refused 2019 Shingrix [id number] Refused 11/03/2018 Shingrix Vital Signs Date Vital Result Comment 03/16/2024 1:16pm BP Systolic 114 mmHg BP Diastolic 68 mmHg Body Temperature 98.9 F Heart Rate 68 /min Respiratory Rate 24 /min Weight 123.56 lb Weight 56.048 kg Height 63 inches 5'3" BMI (Body Mass Index) 21.9 kg/m2 [place] Body Weight 115 lb 11/09/2023 2:23pm BP Systolic 126 mmHg BP Diastolic 76 mmHg Body Temperature 96.8 F Heart Rate 86 /min Weight 125.12 lb Weight 56.757 kg Height 65 inches 5'5" BMI (Body Mass Index) 20.8 kg/m2 O2 % BldC Oximetry 97 % Penn Body Weight 125 lb Procedures Date Code Description Status 03/16/2024 1111F D/C Medications Reconciled W/Current Medications In Outpt MR Completed 03/13/2024 1111F D/C Medications Reconciled W/Current Medications In Outpt MR Completed 11/09/2023 1101F PT SCR Future Fall Risk, No Fall Or 1 W/Out Injury Completed 11/05/2014 [id number] Mammogram Completed Medical Devices Description No Information Available Encounters Type Date Location Provider Dx Diagnosis Office Visit 03/16/2024 12:30p Betsy Fine PA-C N39.0 Urinary tract infection, site not specified G93.40 Encephalopathy, unsp ecified Office Visit 11/09/2023 2:15p Betsy chavarria PA-C Z00.01 Encounter for general adult medical exam w abnormal findings I10 Essential (primary) hypertension E78.2 Mixed hyperlipidemia F33.1 Major depressive dis order, recurrent, moderate E03.9 Hypothyroidism, unsp ecified G47.33 Obstructive sleep ap dick (adult) (pediatric) Assessments Date Code Description Provider 03/16/2024 N39.0 Urinary tract infection, sit e not specified Edgar Fine PA-C 03/16/2024 G93.40 Encephalopathy, unspecified Edgar Fine PA-C 11/09/2023 Z00.01 Encounter for [facility] adult medical examination with abnormal findings Edgar Fine PA-C 11/09/2023 I10 Essential (primary) hyperten anneliese Edgar Fine PA-C 11/09/2023 E78.2 Mixed hyperlipidemia Edgar Fine PA-C 11/09/2023 F33.1 Major depressive disorder, recurrent, moderate Edgar Fine PA-C 11/09/2023 E03.9 Hypothyroidism, unspecified Edgar Fine PA-C 11/09/2023 G47.33 Obstructive sleep apnea (chika lt) (pediatric) Edgar Fine PA-C Plan of Treatment Future Appointment(s):* 06/15/2024 2:15 pm - Edgar Fine PA-C at [facility] 03/16/2024 - Edgar Fine PA-C* N39.0 Urinary tract infection, site not specified* Comments:* Completed antibiotics Diagnosed with COVID 2 days prior to discharge from physical therapy center Complete corticosteroid Patient verbalizes understanding of care plan / instructions. * G93.40 Encephalopathy, unspecified* Comments:* Continue to increase fluid intake Patient's daughter educated to notify us if symptoms start to return Patient refuses repeat lab work today * All* New Medication:* Zolpidem Tartrate 10 mg - take half to 1 tablet by mouth at bedtime as needed for insomnia * Follow up:* Follow up 3 months [facility] Functional Status Functional Condition Comment Date Status Life Alert Active Standard walker is used to ambulate Active Glasses Active Cpap Active Mental Status Description No Information Available Referrals Description No Information Available
--- OUTSIDE RECORDS SUMMARY | 2024-04-09 19:10 | External Medical Summary ---
Author Name Unknown Address Unknown Organization K09:[facility] [place] [address] Laboratory Report Ordering Provider Test Date Status ORBYN ALSTON 03/07/2024 05:40:53 Final Observation Date Value Abnormality Reference (Units ) Status BUN 03/07/2024 05:40:53 15 6-20 (mg/dL) Final Creatinine 03/07/2024 05:40:53 0.9 0.5-1.0 (mg/dL) Final Glomerular filtration rate/1.73 sq M.predicted [Volume Rate/Area] in Serum, Plasma or Blood by Creatinine-based formula (CKD-EPI) 03/07/2024 05:40:53 65 >=60 (mL/min) Final eGFR is calculated based on the CKD-EPI 2020 equation Sodium 03/07/2024 05:40:53 139 135-146 (m mol/L) Final Potassium 03/07/2024 05:40:53 4.2 3.5-5.1 (m mol/L) Final Cl 03/07/2024 05:40:53 103 98-107 (mm ol/L) Final CO2 03/07/2024 05:40:53 23 22-32 (mmo l/L) Final Anion gap 03/07/2024 05:40:53 13 7-15 (mmol /L) Final Glucose 03/07/2024 05:40:53 86 70-120 (mg /dL) Final Calcium 03/07/2024 05:40:53 8.7 8.4-10.2 ( mg/dL) Final Performing Location [facility] [place] [address]
--- OUTSIDE RECORDS SUMMARY | 2024-04-09 19:10 | External Medical Summary ---
Author Name Unknown Address Unknown Organization K09:[facility] [place] [address] Laboratory Report Ordering Provider Test Date Status ROBYN ALSTON 02/29/2024 06:01:36 Final Observation Date Value Abnormality Reference (Units ) Status BUN 02/29/2024 06:01:36 23 Above high normal 6-20 (mg/dL) Final Creatinine 02/29/2024 06:01:36 1.1 Above high normal 0.5-1.0 (mg/dL) Final Glomerular filtration rate/1.73 sq M.predicted [Volume Rate/Area] in Serum, Plasma or Blood by Creatinine-based formula (CKD-EPI) 02/29/2024 06:01:36 47 Below low normal >=60 (mL/min) Final eGFR is calculated based on the CKD-EPI 2020 equation Sodium 02/29/2024 06:01:36 141 135-146 (m mol/L) Final Potassium 02/29/2024 06:01:36 4.8 3.5-5.1 (m mol/L) Final Cl 02/29/2024 06:01:36 105 98-107 (mm ol/L) Final CO2 02/29/2024 06:01:36 23 22-32 (mmo l/L) Final Anion gap 02/29/2024 06:01:36 13 7-15 (mmol /L) Final Glucose 02/29/2024 06:01:36 83 70-120 (mg /dL) Final Calcium 02/29/2024 06:01:36 9.3 8.4-10.2 ( mg/dL) Final Performing Location [facility] [place] [address]
--- OUTSIDE RECORDS SUMMARY | 2024-04-09 19:10 | External Medical Summary ---
Author Name Unknown Address Unknown Organization K01:[facility] [address] [place] [address] Laboratory Report Ordering Provider Test Date Status CELIAMINOOBROWN 03/02/2024 06:05:01 Final Observation Date Value Abnormality Reference (Units ) Status T4, Free 03/02/2024 06:05:01 1.5 0.9-1.7 (n g/dL) Final Performing Location [facility] - [address] [place] [address]
--- OUTSIDE RECORDS SUMMARY | 2024-04-09 19:10 | External Medical Summary ---
Author Name Unknown Address Unknown Organization K01[facility] [place] [address] [place] [address] Laboratory Report Ordering Provider Test Date Status CELIAMINOOCROINOLAN 03/02/2024 06:05:01 Final Observation Date Value Abnormality Reference (Units ) Status TSH 03/02/2024 06:05:01 6.48 Above high normal 0. 27-4.20 (uIU/mL) Final Performing Location [facility] [place] [address] [place] [id number]
--- OUTSIDE RECORDS SUMMARY | 2024-04-09 19:10 | External Medical Summary ---
Author Name Unknown Address Unknown Organization K09:[facility] [place] [address] Laboratory Report Ordering Provider Test Date Status ROBYN ALSTON 03/07/2024 05:40:53 Final Observation Date Value Abnormality Reference (Units ) Status WBC, Total 03/07/2024 05:40:53 4.66 4.00-10.8 0 (K/uL) Final RBC 03/07/2024 05:40:53 4.89 3.85-5.15 (M/uL) Final Hemoglobin 03/07/2024 05:40:53 14.0 12.0-15.3 (g/dL) Final HCT 03/07/2024 05:40:53 42.4 36.0-45.2 (%) Final MCV 03/07/2024 05:40:53 86.7 81.5-97.5 (fL) Final MCH 03/07/2024 05:40:53 28.6 27.0-34.0 (pg) Final MCHC 03/07/2024 05:40:53 33.0 32.0-36.0 (g/dL) Final RDW 03/07/2024 05:40:53 15.5 11.5-15.5 (%) Final Platelets 03/07/2024 05:40:53 95 Below low normal 140 -400 (K/uL) Final MPV 03/07/2024 05:40:53 13.1 6.6-11.1 ( fL) Final Performing Location [facility] [place] [address]
--- OUTSIDE RECORDS SUMMARY | 2024-04-09 19:10 | External Medical Summary ---
Author Name Unknown Address Unknown Organization K0G:[facility] [address] - [address] [place] [address] Laboratory Report Ordering Provider Test Date Status ROBYN ALSTON 02/29/2024 06:01:36 Final Observation Date Value Abnormality Reference (Units ) Status WBC, Total 02/29/2024 06:01:36 6.80 4.00-10.8 0 (K/uL) Final RBC 02/29/2024 06:01:36 5.06 3.85-5.15 (M/uL) Final Hemoglobin 02/29/2024 06:01:36 14.5 12.0-15.3 (g/dL) Final HCT 02/29/2024 06:01:36 44.1 36.0-45.2 (%) Final MCV 02/29/2024 06:01:36 87.2 81.5-97.5 (fL) Final MCH 02/29/2024 06:01:36 28.7 27.0-34.0 (pg) Final MCHC 02/29/2024 06:01:36 32.9 32.0-36.0 (g/dL) Final RDW 02/29/2024 06:01:36 15.0 11.5-15.5 (%) Final Platelets 02/29/2024 06:01:36 131 Below low normal 140 -400 (K/uL) Final MPV 02/29/2024 06:01:36 13.0 6.6-11.1 ( fL) Final Performing Location [facility] [address] [place] [address]
[2024-04-09 19:41] LABS: Basophils # (auto) 0.04 K/uL (0.00-0.20); Basophils % (auto) 0.5 %; Eosinophils # (auto) 0.03 K/uL (0.00-0.50); Eosinophils % (auto) 0.4 %; Hematocrit (blood only) 41.8 % (37.0-47.0); Hemoglobin 14.1 g/dl (12.0-16.0); Immature Granulocytes # (auto) 0.02 K/uL (0.01-0.20); Immature Granulocytes % (auto) 0.3 %; Lymphocytes # (auto) 1.49 K/uL (1.20-3.40); Lymphocytes % (auto) 20.2 %; Mean Corpuscular Hemoglobin 28.4 pg (25.0-34.0); Mean Corpuscular Hgb Conc 33.7 g/dL (32.0-36.0); Mean Corpuscular Volume 84.3 fL (80.0-100.0); Mean Platelet Volume 12.2 fL (9.4-12.4); Monocytes # (auto) 0.65 K/uL (0.11-0.59); Monocytes % (auto) 8.8 %; Neutrophils # (auto) 5.13 K/uL (1.40-6.50); Neutrophils % (auto) 69.8 %; Platelet Count 152 K/uL (130-400); RDW Coefficient of Variation 14.8 % (11.5-14.5); RDW Standard Deviation 45.4 fL (36.4-46.3); Red Blood Count 4.96 M/uL (4.20-5.40); White Blood Count 7.36 K/ul (4.8-10.8)
[2024-04-09 19:51] LABS: Base Excess VBG 1.7 mEq/L; HCO3 VBG 24 mmol/L; Oxygen Saturation VBG 78.5 %; PCO2 VBG 30 mmHg (38-50); PO2 VBG 42 mmHg; pH VBG 7.51 (7.36-7.41)
[2024-04-09 19:56] LABS: Albumin Level 4.5 gm/dl (3.4-5.0); BUN Creatinine Ratio 16.7 (10-20); Bilirubin Direct 0.1 mg/dl (0-0.2); Bilirubin,Total 0.9 mg/dl (0.2-1.0); Est GFR (African American) 72.4 ml/min; Est GFR (Non-African American) 62.5 ml/min; Potassium 3.8 mmol/L (3.5-5.1); Total Protein 6.8 gm/dl (6.0-8.3)
[2024-04-09 20:01] LABS: Troponin I High Sensitivity 12.3 pg/ml (0-14)
[2024-04-09 20:14] LABS: INR 1.1 (0.9-1.1); Partial Thromboplastin Time 28 Seconds (21-31); Prothrombin Time 11.4 Seconds (9.0-12.0)
[2024-04-09 20:21] LABS: Influenza A virus by PCR Negative (Neg); Influenza B virus by PCR Negative (Neg); RSV by PCR Negative (Neg); SARS CoV2 RNA(COVID-19) Ceph NEGATIVE (Negative)
[2024-04-09] MEDS: OPTIRAY 320 125ml IV ONE (20:23)
[2024-04-09] MEDS: ONDANSETRON INJ 2 MG/ML 2 ML VIAL IV STA (20:38)
--- NOTE | 2024-04-09 20:50 | CT Scan Report ---
Exam(s): CT HEAD Without Contrast EXAM: CT Head Without Intravenous Contrast CLINICAL HISTORY: ams weakness. TECHNIQUE: Axial computed tomography images of the head/brain without intravenous contrast. CTDI is 36.79 mGy and DLP is 546.36 mGy-cm. Automated exposure control was utilized for the study. A dose lowering technique was utilized adhering to the principles of ALARA. COMPARISON: CT head without contrast dated 05/06/2018 FINDINGS: Brain: No intracranial hemorrhage. There is a new area of encephalomalacia involving the posterior lateral right occipital region. However, this appears late subacute to chronic. Stable hypodense areas involving the inferior left exit ganglia and the left thalamus. Similar underlying prominence of the cerebral sulci and sylvian fissures. No significant mass effect. No significant white matter disease. Ventricles: No midline shift, ventricular effacement or ventriculomegaly. Bones/joints: Unremarkable. No acute fracture. Soft tissues: Unremarkable. Sinuses: Unremarkable as visualized. No acute sinusitis. Mastoid air cells: Unremarkable as visualized. No mastoid effusion. IMPRESSION: No acute intracranial process identified. There is a new area of encephalomalacia involving the posterior lateral right occipital region when compared to the previous examination. However, this appears late subacute to chronic in nature. No significant mass effect or midline shift. Stable lacunar changes involving the left basal ganglia and thalamus. Electronically signed by: Dannie Solis MD 04/09/24 20:49 PM
--- NOTE | 2024-04-09 20:55 | CT Scan Report ---
Exam(s): CTA CHEST IV Amt: 120ml opti 320 EXAM: CT Angiography Chest With Intravenous Contrast CLINICAL HISTORY: ro PE. TECHNIQUE: Axial computed tomographic angiography images of the chest with intravenous contrast. CTDI is 13.11 mGy and DLP is 378.58 mGy-cm. Automated exposure control was utilized for the study. A dose lowering technique was utilized adhering to the principles of ALARA. MIP reconstructed images were created and reviewed. COMPARISON: No relevant prior studies available. FINDINGS: Limitations: There is respiratory artifact, which degrades image quality on multiple image slices. Pulmonary arteries: Accounting for respiratory artifact, there is no definite evidence for pulmonary embolism. Aorta: The ascending aorta is ectatic, with the mid ascending aorta measuring 4.2 x 4.3 cm. The aortic arch and descending aorta are normal in caliber with extensive atherosclerotic calcification. No thoracic aortic aneurysm. Lungs: Accounting for respiratory artifact, there is no definite evidence for focal airspace consolidation. Minimal dependent subsegmental presumed atelectatic changes noted posteriorly. Pleural space: Unremarkable. No significant effusion. No pneumothorax. Heart: Cardiomegaly. Mild to moderate hypodense pericardial effusion. Prominent coronary artery calcification. Bones/joints: No acute fracture. No dislocation. Soft tissues: Unremarkable. Lymph nodes: Unremarkable. No enlarged lymph nodes. Tubes, lines and devices: Left subclavian approach single lead pacer noted. IMPRESSION: 1. Accounting for respiratory artifact, there is no definite evidence for pulmonary embolism. 2. Cardiomegaly. Mild to moderate hypodense pericardial effusion. Ectasia of the unenhanced ascending aorta incidentally noted. 3. Accounting for respiratory artifact, there is no definite evidence for focal airspace consolidation. Minimal dependent subsegmental presumed atelectatic changes noted posteriorly. No pleural effusion or pneumothorax. Electronically signed by: Dannie Solis MD 04/09/24 20:54 PM
[2024-04-09 21:11] LABS: Appearance Urine Clear (Clear); Bacteria Urine Automated None Seen (None Seen); Bilirubin Urine Negative (Negative); Blood Urine Negative (Negative); Cast Urine Automated 0-2 /lpf (0-2); Color Urine Yellow; Epithelial Cell Urine Auto 0-2 /hpf (0-2); Glucose Urine UA Negative (Negative); Ketones Urine Trace (Negative); Leukocyte Esterase Urine 1+ (Negative); Nitrite Urine Negative (Negative); Protein Urine Negative (Negative); RBC Urine Automated 0-2 /hpf (0-2); Specific Gravity Urine 1.028 (1.000-1.030); Urobilinogen Urine Negative (Negative); WBC Urine Automated 0-5 /hpf (0-5); pH Urine 8.5 (4.5-7.5)
--- NOTE | 2024-04-09 21:16 | CT Scan Report ---
Exam(s): CT ABDOMEN + PELVIS With Contrast IV Amt: 120ml opti 320 EXAM: CT Abdomen and Pelvis With Intravenous Contrast CLINICAL HISTORY: abd pain. TECHNIQUE: Axial computed tomography images of the abdomen and pelvis with intravenous contrast. CTDI is 13.11 mGy and DLP is 593.82 mGy-cm. Automated exposure control was utilized for the study. A dose lowering technique was utilized adhering to the principles of ALARA. CONTRAST: Patient received 120ml opti 320 of IV contrast COMPARISON: CT abdomen and pelvis with contrast dated 08/21/2019 FINDINGS: Artifacts: Scatter artifact likely related to patient's arm position. Limitations: There is respiratory artifact, which degrades image quality on multiple image slices. Lung bases: For findings regarding the lung bases, please see the CT report of the chest performed concurrently. No consolidation. ABDOMEN: Liver: Stable subcentimeter hypoattenuating areas throughout the liver. The liver demonstrates normal enhancement. Gallbladder and bile ducts: Unremarkable. No calcified stones. No ductal dilation. Pancreas: Unremarkable. No mass. No ductal dilation. Spleen: Unremarkable. No splenomegaly. Adrenals: Unremarkable. No mass. Kidneys and ureters: The kidneys demonstrate normal enhancement. No hydronephrosis. Incidental extrarenal pelvis on the right. No calyceal dilatation. No obstructive ureteral stones. Stomach and bowel: The stomach is predominantly decompressed with only minimal fluid and gas. No significant gastric mucosal thickening. No evidence for bowel obstruction. No definite asymmetric bowel mucosal abnormality, accounting for limitations with respiratory artifact. Minimal stool burden. No appreciable diverticulitis. PELVIS: Appendix: The appendix is not clearly delineated. No secondary findings to suggest acute appendicitis. Bladder: Unremarkable. No mass. Reproductive: Status post hysterectomy. ABDOMEN and PELVIS: Intraperitoneal space: Unremarkable. No free air. No significant fluid collection. Bones/joints: No acute fracture. No dislocation. Soft tissues: Unremarkable. Vasculature: Extensive atherosclerotic calcification of the aorta, which is somewhat tortuous. No dissection or aneurysm. Lymph nodes: Unremarkable. No enlarged lymph nodes. IMPRESSION: No evidence for bowel obstruction. No definite asymmetric bowel mucosal abnormality, accounting for limitations with respiratory artifact. Minimal stool burden. No appreciable diverticulitis. No free intraperitoneal fluid or pneumoperitoneum. Electronically signed by: Dannie Solis MD 04/09/24 21:15 PM
--- NOTE | 2024-04-09 22:00 | History & Physical Report ---
Date of Service April 09, 2024 Assessment & Plan (1) Acute respiratory failure with hypoxemia: Plan: Reportedly in the 80s upon presentation - satting at 100% on 4L. Not on home O2. Likely multifactorial - CHF exacerbation, URI, pericardial effusion, atelectasis. Less likely infectious - no leukocytosis or fever, procal negative, UA non-infectious, covid/flu/rsv negative. No signs of pneumonia or PE on imaging. BNP 170. Patient has not been taking her home medications. Give Lasix 10 mg IV x1. Patient takes 20 mg PO PRN for leg swelling. Will do daily dosing for the next 3 days, then resume home PRN dosing. Can return to PRN dosing sooner if indicated. Hold off on abx/nebs for now as patient without clinical signs of pneumonia or wheezing wean oxygen support as tolerated 10 mg IV lasix x1, lasix 20 mg PO QAM x3 days, then resume PRN dosing (resume sooner if indicated) f/u blood culture (2) Pericardial effusion: Plan: Mild to moderate pericardial effusion noted on CT Chest. Small effusion was present on ECHO 02/24/2024. May be contributing. Cardiology consult placed - appreciate recs (3) PND (post-nasal drip): Plan: PND likely in the setting of acute upper respiratory illness. Thick mucus is making her nauseous and causing GI upset. May also be a component of GERD causing the GI upset. Hold off on abx/nebs for now as patient without clinical signs of pneumonia or wheezing. mucinex 1200 mg BID with a full glass of water flonase BID IV PPI/H2, carafate QID IS, flutter valve (4) CVA (cerebral vascular accident): Plan: New area of encephalomalacia on CT - appears late subacute to chronic. No focus deficits. Continue statin therapy. Could consider increasing dose depending on LDL. (5) Atrial fibrillation: Plan: Rates acceptable. In a fib on monitor. Continue home dilt. Tele unit. (6) Respiratory alkalosis: Plan: Respiratory alkalosis on VBG. Likely self limiting process. Monitor oxygenation status and AM VBG (7) Dyspnea: Plan: See above (8) Abdominal pain: Plan: See above (9) Weakness: Plan: See above (10) GERD (gastroesophageal reflux disease): Plan: See above Plan Code status: DNR/DNI DVT ppx: Lovenox FENGI: heart healthy, start with bland and advance as tolerated Dispo: telemetry unit History of Present Illness Chief Complaint: malaise Primary Care Provider: Edgar Fine 88 y/o patient with a PMHx of a fib, HFpEF, hypothyroidism, insomnia, HLD, pacemaker placement, and GERD here for evaluation of generally feeling unwell. Patient with general malaise, congestion, PND, and increased throat clearing for the last few days. PND is causing nausea, vomiting, abdominal upset, and decreased appetite. Has not taken her home meds for the last two days. She is having shortness of breath as well. No acute urinary concerns. No blood in the stool or vomit. Had a BM today. No fevers or CP. Was hospitalized in early February for UTI. She was hypertensive at that time as well because she had not been taking her medications. She was started on GDMT for HFpE and subsequently developed hypotension. ECHO showing small pericardial effusion at that time - no tamponade. Patient is on dilt for a fib. Is not anticoagulated. Allergies Allergy/AdvReac Type Severity Reaction Status Date / Time oxycodone AdvReac Intermediate HALLUCINATI Verified 04/09/24 21:06 ONS morphine AdvReac Unknown DELIRIUM Verified 04/09/24 21:06 Home Medications Medication Instructions Recorded Confirmed Type aspirin 325 mg tablet 325 mg PO DAILY@209905/06/18 04/09/24 History famotidine 40 mg tablet (Pepcid) 40 mg PO DAILY@209905/06/18 04/09/24 History levothyroxine 75 mcg tablet 75 mcg PO DAILY@99905/06/18 04/09/24 History (Synthroid) omeprazole 40 mg capsule,delayed 40 mg PO DAILY@99905/06/18 04/09/24 History release pregabalin 50 mg capsule (Lyrica) 100 mg PO DAILY@999,209905/06/18 04/09/24 History atorvastatin 20 mg tablet 20 mg PO DAILY@209911/16/18 04/09/24 History docusate sodium 100 mg tablet 200 mg PO BID 11/16/18 04/09/24 History sertraline 50 mg tablet 50 mg PO DAILY@209911/16/18 04/09/24 History donepezil 5 mg tablet 5 mg PO DAILY 02/09/22 04/09/24 History cranberry extract 500 mg tablet 1,000 mg PO DAILY 02/21/24 04/09/24 History ferrous sulfate 325 mg (65 mg 325 mg PO BID 02/21/24 04/09/24 History iron) tablet ibandronate 150 mg tablet 150 mg PO .MONTHLY 02/21/24 04/09/24 History diltiazem HCl 180 mg 180 mg PO DAILY #30 caps 02/28/24 04/09/24 Rx capsule,extended release 24 hr furosemide 20 mg tablet (Lasix) 20 mg PO DAILY PRN edema/swelling 02/28/24 04/09/24 Rx of legs #30 tabs magnesium oxide 400 mg PO DAILY #30 tabs 02/28/24 04/09/24 Rx melatonin 3 mg tablet 3 mg PO HS #30 tabs 02/28/24 04/09/24 Rx cyanocobalamin (vitamin B-12) 2,500 mcg PO DAILY 04/09/24 04/09/24 History 2,500 mcg sublingual tablet (Vitamin B-12) sennosides 8.6 mg tablet (senna) 8.6 mg PO BID PRN Constipation 04/09/24 04/09/24 History zolpidem 10 mg tablet 5 mg PO HS PRN Insomnia 04/09/24 04/09/24 History Past Med/Surg History Problem List (Updated 04/09/24 @ 23:42 by Anne Goss MD) Respiratory alkalosis PND (post-nasal drip) Stroke (Acute) Pericardial effusion (Acute) Hypoxia (Acute) Pericardial effusion Thrombocytopenia Female bladder prolapse Hypotension Acute metabolic encephalopathy UTI (urinary tract infection) Chills Acute diastolic CHF (congestive heart failure) Acute respiratory failure with hypoxemia Elevated troponin Dyspnea Atrial fibrillation Hypokalemia (Acute) Anticoagulation therapy not indicated Dizziness Hypothyroidism DVT prophylaxis Periorbital cellulitis of left eye Insomnia Depression (Chronic) B12 deficiency Peripheral neuropathy (Chronic) Hypertension (Chronic) Hyperlipidemia LDL goal <70 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) Cellulitis of left orbit (Acute) Abdominal pain (Acute) Stomach ulcer (Acute) GERD (gastroesophageal reflux disease) (Chronic) H/O cervical spine surgery (Chronic) "cervical decompression with evacuation of cervical epidural hematoma 09/22/2012" Atrial fibrillation with rapid ventricular response (Chronic) Atypical chest pain Bradycardia Precordial chest pain (Acute) Thoracic back pain (Acute) Vertigo (Acute) Weakness (Acute) Medical History (Updated 04/09/24 @ 23:42 by Anne Goss MD) Headache Family History Other Family history non-contributory Social History Smoking Status: Never smoker Do You Dip or Chew Tobacco: No; Hx Alcohol Use: No Hx Substance Use: No Preferred Language: Taiwanese Communication Ability: Effective Human Resources Administrator Required: No Beliefs That Will Affect Care: None marital status: / Current Living Situation: Spouse Current Living Situation Comment: Z[facility] Garcia Feels Safe at Home: Yes Assistive Devices: Cane and Walker Review of Systems 2 Review of Systems: See HPI Physical Exam 2 Physical Exam: Gen: well appearing patient in NAD HEENT: AT NC MMM Resp: CTAB scattered rhonchi - clear with coughing, no wheezing, no increased work of breathing CV: irregularly irregular, rate controlled, clinically well perfused Abd: soft, non-tender, non-distended MSK: no obvious deformities Skin: no rashes or bruising Neuro: alert and oriented Psych: appropriate mood and affect Results & Data Results & Data Vital Signs (Past 12 Hours) Vital Signs Temp Pulse Pulse Resp BP BP Pulse Ox 04/09/24 21:45 97 H 20 146/95 H 98 04/09/24 21:30 98 H 22 171/146 H 98 04/09/24 21:15 100 H 22 196/112 H 98 04/09/24 21:00 101 H 22 174/120 H 98 04/09/24 20:45 107 H 22 205/122 H 99 04/09/24 20:30 101 H 24 186/107 H 98 04/09/24 20:26 99 H 22 215/119 H 98 04/09/24 19:36 94 04/09/24 19:31 93 H 04/09/24 19:30 81 28 H 182/88 H 95 04/09/24 19:13 36.8 C 102 H 26 H 156/76 H 97 O2 Del Method O2 Flow Rate 04/09/24 21:45 Nasal Cannula 4 04/09/24 21:30 Nasal Cannula 4 04/09/24 21:15 Oxymask 4 04/09/24 21:00 Nasal Cannula 4 04/09/24 20:45 Nasal Cannula 4 04/09/24 20:30 Nasal Cannula 4 04/09/24 20:26 Nasal Cannula 4 04/09/24 19:36 Nasal Cannula 4 04/09/24 19:31 04/09/24 19:30 Nasal Cannula 4 04/09/24 19:13 Nasal Cannula 2 Laboratory Results 04/09/24 19:25 04/09/24 19:25 Diagnostic Findings Abdomen/Pelvis CT 04/09/24 19:46 FINDINGS: Artifacts: Scatter artifact likely related to patient's arm position. Limitations: There is respiratory artifact, which degrades image quality on multiple image slices. Lung bases: For findings regarding the lung bases, please see the CT report of the chest performed concurrently. No consolidation. ABDOMEN: Liver: Stable subcentimeter hypoattenuating areas throughout the liver. The liver demonstrates normal enhancement. Gallbladder and bile ducts: Unremarkable. No calcified stones. No ductal dilation. Pancreas: Unremarkable. No mass. No ductal dilation. Spleen: Unremarkable. No splenomegaly. Adrenals: Unremarkable. No mass. Kidneys and ureters: The kidneys demonstrate normal enhancement. No hydronephrosis. Incidental extrarenal pelvis on the right. No calyceal dilatation. No obstructive ureteral stones. Stomach and bowel: The stomach is predominantly decompressed with only minimal fluid and gas. No significant gastric mucosal thickening. No evidence for bowel obstruction. No definite asymmetric bowel mucosal abnormality, accounting for limitations with respiratory artifact. Minimal stool burden. No appreciable diverticulitis. PELVIS: Appendix: The appendix is not clearly delineated. No secondary findings to suggest acute appendicitis. Bladder: Unremarkable. No mass. Reproductive: Status post hysterectomy. ABDOMEN and PELVIS: Intraperitoneal space: Unremarkable. No free air. No significant fluid collection. Bones/joints: No acute fracture. No dislocation. Soft tissues: Unremarkable. Vasculature: Extensive atherosclerotic calcification of the aorta, which is somewhat tortuous. No dissection or aneurysm. Lymph nodes: Unremarkable. No enlarged lymph nodes. IMPRESSION: No evidence for bowel obstruction. No definite asymmetric bowel mucosal abnormality, accounting for limitations with respiratory artifact. Minimal stool burden. No appreciable diverticulitis. No free intraperitoneal fluid or pneumoperitoneum. Head CT 04/09/24 19:46 FINDINGS: Brain: No intracranial hemorrhage. There is a new area of encephalomalacia involving the posterior lateral right occipital region. However, this appears late subacute to chronic. Stable hypodense areas involving the inferior left exit ganglia and the left thalamus. Similar underlying prominence of the cerebral sulci and sylvian fissures. No significant mass effect. No significant white matter disease. Ventricles: No midline shift, ventricular effacement or ventriculomegaly. Bones/joints: Unremarkable. No acute fracture. Soft tissues: Unremarkable. Sinuses: Unremarkable as visualized. No acute sinusitis. Mastoid air cells: Unremarkable as visualized. No mastoid effusion. IMPRESSION: No acute intracranial process identified. There is a new area of encephalomalacia involving the posterior lateral right occipital region when compared to the previous examination. However, this appears late subacute to chronic in nature. No significant mass effect or midline shift. Stable lacunar changes involving the left basal ganglia and thalamus. Chest CTA 04/09/24 20:03 FINDINGS: Limitations: There is respiratory artifact, which degrades image quality on multiple image slices. Pulmonary arteries: Accounting for respiratory artifact, there is no definite evidence for pulmonary embolism. Aorta: The ascending aorta is ectatic, with the mid ascending aorta measuring 4.2 x 4.3 cm. The aortic arch and descending aorta are normal in caliber with extensive atherosclerotic calcification. No thoracic aortic aneurysm. Lungs: Accounting for respiratory artifact, there is no definite evidence for focal airspace consolidation. Minimal dependent subsegmental presumed atelectatic changes noted posteriorly. Pleural space: Unremarkable. No significant effusion. No pneumothorax. Heart: Cardiomegaly. Mild to moderate hypodense pericardial effusion. Prominent coronary artery calcification. Bones/joints: No acute fracture. No dislocation. Soft tissues: Unremarkable. Lymph nodes: Unremarkable. No enlarged lymph nodes. Tubes, lines and devices: Left subclavian approach single lead pacer noted. IMPRESSION: 1. Accounting for respiratory artifact, there is no definite evidence for pulmonary embolism. 2. Cardiomegaly. Mild to moderate hypodense pericardial effusion. Ectasia of the unenhanced ascending aorta incidentally noted. 3. Accounting for respiratory artifact, there is no definite evidence for focal airspace consolidation. Minimal dependent subsegmental presumed atelectatic changes noted posteriorly. No pleural effusion or pneumothorax. Supervising Physician Co-Signing Physician Notes Patient seen and examined, chart reviewed, case discussed with Dr. Goss and I agree with the assessment and plan as above Patient presenting with acute hypoxia, saturations reportedly in the 80's on room air. No home O2 use, malaise, congestion and overall feeling unwell. On exam she is elderly, chronically ill in appearance Skin - intact, no rash HEENT- MMM, neck supple Heart - +S1/S2, irregularly irregular, pacer in place Lungs - CTA, no rales/rhonchi/wheezes Abd - soft, NT/ND, no masses Ext - warm, well perfused Labs and images reviewed Assessment/plan - 88yo female presenting with acute hypoxic respiratory failure, reportedly with saturations in the 80's on room air. Improved with supplemental O2. Unclear etiology - ?volume overload - patient does not appear overtly overloaded. Pericardial effusion noted on prior imaging as well, has increased in size. Doubt that this is causing hypoxia. No tamponade, BP is stable Symptomatic care with Mucinex, Flonase Pepcid, Protonix, Carafate Remainder as above Resident Activity Tracking Resident Involvement: Resident Care Provided Care Provided: Adult Hospital Medicine
--- NOTE | 2024-04-09 23:16 | Emergency Department Note ---
History of Present Illness General Chief complaint: Vomiting Stated complaint: VOMITING, SOB ?UTI Time Seen by Provider: 04/09/24 19:19 Source: patient and family (Daughter at bedside) History of Present Illness Provider complaint: Weakness Maximum Pain Intensity: 5 88-year-old female presents emergency department for weakness. Patient's symptoms began 2 days ago. She reports shortness of breath, abdominal pain. Chills. She reports no fevers. No cough. Daughter states she is concerned the patient has a UTI. No nausea vomiting or diarrhea. No melena or hematochezia. Home Medications Medication Instructions Recorded Confirmed Type aspirin 325 mg tablet 325 mg PO DAILY@209905/06/18 04/09/24 History famotidine 40 mg tablet (Pepcid) 40 mg PO DAILY@209905/06/18 04/09/24 History levothyroxine 75 mcg tablet 75 mcg PO DAILY@99905/06/18 04/09/24 History (Synthroid) omeprazole 40 mg capsule,delayed 40 mg PO DAILY@99905/06/18 04/09/24 History release pregabalin 50 mg capsule (Lyrica) 100 mg PO DAILY@05/06/18 04/09/24 History atorvastatin 20 mg tablet 20 mg PO DAILY@209911/16/18 04/09/24 History docusate sodium 100 mg tablet 200 mg PO BID 11/16/18 04/09/24 History sertraline 50 mg tablet 50 mg PO DAILY@209911/16/18 04/09/24 History donepezil 5 mg tablet 5 mg PO DAILY 02/09/22 04/09/24 History cranberry extract 500 mg tablet 1,000 mg PO DAILY 02/21/24 04/09/24 History ferrous sulfate 325 mg (65 mg 325 mg PO BID 02/21/24 04/09/24 History iron) tablet ibandronate 150 mg tablet 150 mg PO .MONTHLY 02/21/24 04/09/24 History diltiazem HCl 180 mg 180 mg PO DAILY #30 caps 02/28/24 04/09/24 Rx capsule,extended release 24 hr furosemide 20 mg tablet (Lasix) 20 mg PO DAILY PRN edema/swelling 02/28/24 04/09/24 Rx of legs #30 tabs magnesium oxide 400 mg PO DAILY #30 tabs 02/28/24 04/09/24 Rx melatonin 3 mg tablet 3 mg PO HS #30 tabs 02/28/24 04/09/24 Rx cyanocobalamin (vitamin B-12) 2,500 mcg PO DAILY 04/09/24 04/09/24 History 2,500 mcg sublingual tablet (Vitamin B-12) sennosides 8.6 mg tablet (senna) 8.6 mg PO BID PRN Constipation 04/09/24 04/09/24 History zolpidem 10 mg tablet 5 mg PO HS PRN Insomnia 04/09/24 04/09/24 History Allergies Allergy/AdvReac Type Severity Reaction Status Date / Time oxycodone AdvReac Intermediate HALLUCINATI Verified 04/09/24 21:06 ONS morphine AdvReac Unknown DELIRIUM Verified 04/09/24 21:06 Past Med/Surg History Problem List (Updated 04/09/24 @ 23:20 by Pavel Henley MD) Stroke (Acute) Pericardial effusion (Acute) Hypoxia (Acute) Pericardial effusion Thrombocytopenia Female bladder prolapse Hypotension Acute metabolic encephalopathy UTI (urinary tract infection) Chills Acute diastolic CHF (congestive heart failure) Acute respiratory failure with hypoxemia Elevated troponin Dyspnea Atrial fibrillation Hypokalemia (Acute) Anticoagulation therapy not indicated Dizziness Hypothyroidism DVT prophylaxis Periorbital cellulitis of left eye Insomnia Depression (Chronic) B12 deficiency Peripheral neuropathy (Chronic) Hypertension (Chronic) Hyperlipidemia LDL goal <70 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) Cellulitis of left orbit (Acute) Abdominal pain (Acute) Stomach ulcer (Acute) GERD (gastroesophageal reflux disease) (Chronic) H/O cervical spine surgery (Chronic) "cervical decompression with evacuation of cervical epidural hematoma 09/22/2012" Atrial fibrillation with rapid ventricular response (Chronic) Atypical chest pain Bradycardia Precordial chest pain (Acute) Thoracic back pain (Acute) Vertigo (Acute) Weakness (Acute) Medical History (Updated 04/09/24 @ 23:20 by Pavel Henley MD) Headache Family History Other Family history non-contributory Social History Smoking Status: Never smoker Do You Dip or Chew Tobacco: No; Hx Alcohol Use: No Hx Substance Use: No Preferred Language: Egyptian Communication Ability: Effective Community Outreach Manager Required: No Beliefs That Will Affect Care: None marital status: / Current Living Situation: Spouse Current Living Situation Comment: Zaid Garcia Feels Safe at Home: Yes Assistive Devices: Cane and Walker Physical Exam Vital Signs Vital Signs - 24 hr 04/09/24 19:13 04/09/24 19:30 04/09/24 19:31 Temperature 36.8 C Temperature Source Temporal Artery Scan Pulse Rate 102 H 93 H Pulse Rate [Apical] 81 Respiratory Rate 26 H 28 H Respiratory Effort / Characteristics Short of Breath Blood Pressure 156/76 H Blood Pressure [Right Arm] 182/88 H Blood Pressure Mean 102 Blood Pressure Mean [Right Arm] 119 Pulse Oximetry 97 95 Oxygen Delivery Method Nasal Cannula Nasal Cannula Oxygen Flow Rate 2 4 Sepsis Recent Fever Within 48 Hours No Sepsis New/Unexplained Change in Mental Status No Sepsis Action Taken by Nursing Adv Provider Notified 04/09/24 19:36 04/09/24 20:26 04/09/24 20:30 Temperature Temperature Source Pulse Rate Pulse Rate [Apical] 99 H 101 H Respiratory Rate 22 24 Respiratory Effort / Characteristics Blood Pressure Blood Pressure [Right Arm] 215/119 H 186/107 H Blood Pressure Mean Blood Pressure Mean [Right Arm] 151 133 Pulse Oximetry 94 98 98 Oxygen Delivery Method Nasal Cannula Nasal Cannula Nasal Cannula Oxygen Flow Rate 4 4 4 Sepsis Recent Fever Within 48 Hours Sepsis New/Unexplained Change in Mental Status Sepsis Action Taken by Nursing 04/09/24 20:45 04/09/24 21:00 04/09/24 21:15 Temperature Temperature Source Pulse Rate Pulse Rate [Apical] 107 H 101 H 100 H Respiratory Rate 22 22 22 Respiratory Effort / Characteristics Blood Pressure Blood Pressure [Right Arm] 205/122 H 174/120 H 196/112 H Blood Pressure Mean Blood Pressure Mean [Right Arm] 149 138 140 Pulse Oximetry 99 98 98 Oxygen Delivery Method Nasal Cannula Nasal Cannula Oxymask Oxygen Flow Rate 4 4 4 Sepsis Recent Fever Within 48 Hours Sepsis New/Unexplained Change in Mental Status Sepsis Action Taken by Nursing 04/09/24 21:30 04/09/24 21:45 04/09/24 22:00 Temperature Temperature Source Pulse Rate Pulse Rate [Apical] 98 H 97 H 98 H Respiratory Rate 22 20 20 Respiratory Effort / Characteristics Blood Pressure Blood Pressure [Right Arm] 171/146 H 146/95 H 177/129 H Blood Pressure Mean Blood Pressure Mean [Right Arm] 154 112 145 Pulse Oximetry 98 98 99 Oxygen Delivery Method Nasal Cannula Nasal Cannula Nasal Cannula Oxygen Flow Rate 4 4 4 Sepsis Recent Fever Within 48 Hours Sepsis New/Unexplained Change in Mental Status Sepsis Action Taken by Nursing 04/09/24 22:15 04/09/24 22:30 04/09/24 22:45 Temperature Temperature Source Pulse Rate Pulse Rate [Apical] 83 82 85 Respiratory Rate 22 20 20 Respiratory Effort / Characteristics Blood Pressure Blood Pressure [Right Arm] 179/99 H 190/93 H 161/100 H Blood Pressure Mean Blood Pressure Mean [Right Arm] 125 125 120 Pulse Oximetry 100 98 100 Oxygen Delivery Method Nasal Cannula Nasal Cannula Nasal Cannula Oxygen Flow Rate 4 4 4 Sepsis Recent Fever Within 48 Hours Sepsis New/Unexplained Change in Mental Status Sepsis Action Taken by Nursing Physical Exam HENT: Exam performed. -Head: Normocephalic and atraumatic. -Mouth/Throat: The oropharynx is clear and moist. No trismus in the jaw. No dental abscesses or uvula swelling. No oropharyngeal exudate or tonsillar abscesses. EYES: Conjunctivae and EOM are normal. Pupils are equal, round, and reactive to light. Right eye exhibits no discharge. Left eye exhibits no discharge. No scleral icterus. NECK: Normal range of motion. Neck supple. No JVD present. CV: Normal rate, irregular rhythm, normal heart sounds and intact distal pulses. There is no peripheral edema. Palpable radial pulses bue. PULM/CHEST: Diminished breath sounds bilaterally. ABD: The abdomen is soft. There is tenderness to palpation left lower quadrant. There is no rebound, no guarding. NEURO: Motor and sensation grossly intact. Course Course 191: The patient was evaluated in room A11. A complete history and physical exam was performed Cardiac monitoring: An order was placed for continuous cardiac monitoring. The monitor shows a rate of 90 with atrial fibrilation rhythm interpreted by me Patient hypoxic on room air. Supplemental oxygen was applied which improved the patient's oxygen saturation. 2144: Vital signs stable on supplemental oxygen. Labs are unremarkable. CT of the chest shows no PE but does show pericardial effusion. CT of the head shows a possible subacute infarct. CT abdomen pelvis negative. [facility]. Administered Medications Discontinued Medications Ioversol (Optiray 320 125ml) 120 ml IV ONCE ONE Stop: 04/09/24 20:24 Last Admin: 04/09/24 20:23 Dose: 120 ml Documented By: MIKA Ondansetron HCl (Ondansetron Inj 2 Mg/Ml 2 Ml Vial) 4 mg IV NOW STA Stop: 04/09/24 20:37 Last Admin: 04/09/24 20:38 Dose: 4 mg Documented By: NATHALIA Critical Care Time Critical Care Time: Yes Total Critical Care Time: 81 I have personally spent greater than 81 minutes of critical care time in the direct management of this patient. This includes bedside care, interpretation of diagnostic studies, and testing, discussion with consultants, patient, and family members, and other required patient management activities. This 81 minutes is in excess of all separately billable procedures. Medical Decision Making Medical Records Attestation: I reviewed the patient's medical records. External medical records reviewed. Patient was admitted from February 20-February 28 2024. At that time she was admitted for respiratory failure with toxic hypoxemia metabolic encephalopathy secondary to UTI and atrial fibrillation. Patient had an echo done on February 21 which showed a small pericardial effusion. Laboratory Data Attestation: I reviewed the patient's lab results. 04/09/24 19:25 04/09/24 19:25 Lab Results 04/09/24 04/09/24 04/09/24 Range/Units 19:25 19:33 19:41 WBC 7.36 (4.8-10.8) K/ul RBC 4.96 (4.20-5.40) M/uL Hgb 14.1 (12.0-16.0) g/dl Hct 41.8 (37.0-47.0) % MCV 84.3 (80.0-100.0) fL MCH 28.4 (25.0-34.0) pg MCHC 33.7 (32.0-36.0) g/dL RDW Std Deviation 45.4 (36.4-46.3) fL RDW Coeff of Alfredo 14.8 H (11.5-14.5) % Plt Count 152 (130-400) K/uL MPV 12.2 (9.4-12.4) fL Immature Gran % (Auto) 0.3 % Neut % (Auto) 69.8 % Lymph % (Auto) 20.2 % Wise % (Auto) 8.8 % Eos % (Auto) 0.4 % Baso % (Auto) 0.5 % Neut # (Auto) 5.13 (1.40-6.50) K/uL Lymph # (Auto) 1.49 (1.20-3.40) K/uL Wise # (Auto) 0.65 H (0.11-0.59) K/uL Eos # (Auto) 0.03 (0.00-0.50) K/uL Baso # (Auto) 0.04 (0.00-0.20) K/uL Immature Gran # (Auto) 0.02 (0.01-0.20) K/uL PT 11.4 (9.0-12.0) Seconds INR 1.1 (0.9-1.1) APTT 28 (21-31) Seconds PTT Ratio 1.0 VBG pH 7.51 H (7.36-7.41) VBG pCO2 30 L (38-50) mmHg VBG pO2 42 mmHg VBG HCO3 24 mmol/L VBG O2 Saturation 78.5 % VBG Base Excess 1.7 mEq/L Sodium 142 (136-145) mmol/L Potassium 3.8 (3.5-5.1) mmol/L Chloride 108 H (98-107) mmol/L Carbon Dioxide 24 (21-32) mmol/L Anion Gap 10 (3-11) BUN 14 (6-23) mg/dl Creatinine 0.84 (0.6-1.2) mg/dl Est Cr Clr Drug Dosing 39.0 ml/min Est GFR ( Amer) 72.4 ml/min Est GFR (Non-Af Amer) 62.5 ml/min BUN/Creatinine Ratio 16.7 (10-20) Glucose 91 (70-99(Fasting)) mg/dl Lactate 1.0 (0.4-2.0) mmol/L Calcium 10.0 (8.6-10.3) mg/dl Magnesium 2.0 (1.7-2.4) mg/dl Total Bilirubin 0.9 (0.2-1.0) mg/dl Direct Bilirubin 0.1 (0-0.2) mg/dl AST 21 (13-39) U/L ALT 12 (7-52) U/L Alkaline Phosphatase 87 (34-104) U/L Troponin I High Sens 12.3 (0-14) pg/ml B-Natriuretic Peptide 170 H (0-100) pg/ml Total Protein 6.8 (6.0-8.3) gm/dl Albumin 4.5 (3.4-5.0) gm/dl Procalcitonin < 0.02 (0-0.5) ng/ml Urine Color Urine Appearance (Clear) Urine pH (4.5-7.5) Ur Specific [place] (1.000-1.030) Urine Protein (Negative) Urine Glucose (UA) (Negative) Urine Ketones (Negative) Urine Blood (Negative) Urine Nitrite (Negative) Urine Bilirubin (Negative) Urine Urobilinogen (Negative) Ur Leukocyte Esterase (Negative) Urine WBC (Auto) (0-5) /hpf Urine RBC (Auto) (0-2) /hpf U Hyaline Cast (Auto) (0-2) /lpf U Epithel Cells (Auto) (0-2) /hpf Urine Bacteria (Auto) (None Seen) SARS-CoV-2 (PCR) NEGATIVE (Negative) Influenza Type A (PCR) Negative (Neg) Influenza Type B (PCR) Negative (Neg) RSV (RT-PCR) Negative (Neg) 04/09/24 Range/Units 20:47 WBC (4.8-10.8) K/ul RBC (4.20-5.40) M/uL Hgb (12.0-16.0) g/dl Hct (37.0-47.0) % MCV (80.0-100.0) fL MCH (25.0-34.0) pg MCHC (32.0-36.0) g/dL RDW Std Deviation (36.4-46.3) fL RDW Coeff of Alfredo (11.5-14.5) % Plt Count (130-400) K/uL MPV (9.4-12.4) fL Immature Gran % (Auto) % Neut % (Auto) % Lymph % (Auto) % Wise % (Auto) % Eos % (Auto) % Baso % (Auto) % Neut # (Auto) (1.40-6.50) K/uL Lymph # (Auto) (1.20-3.40) K/uL Wise # (Auto) (0.11-0.59) K/uL Eos # (Auto) (0.00-0.50) K/uL Baso # (Auto) (0.00-0.20) K/uL Immature Gran # (Auto) (0.01-0.20) K/uL PT (9.0-12.0) Seconds INR (0.9-1.1) APTT (21-31) Seconds PTT Ratio VBG pH (7.36-7.41) VBG pCO2 (38-50) mmHg VBG pO2 mmHg VBG HCO3 mmol/L VBG O2 Saturation % VBG Base Excess mEq/L Sodium (136-145) mmol/L Potassium (3.5-5.1) mmol/L Chloride (98-107) mmol/L Carbon Dioxide (21-32) mmol/L Anion Gap (3-11) BUN (6-23) mg/dl Creatinine (0.6-1.2) mg/dl Est Cr Clr Drug Dosing ml/min Est GFR ( Amer) ml/min Est GFR (Non-Af Amer) ml/min BUN/Creatinine Ratio (10-20) Glucose (70-99(Fasting)) mg/dl Lactate (0.4-2.0) mmol/L Calcium (8.6-10.3) mg/dl Magnesium (1.7-2.4) mg/dl Total Bilirubin (0.2-1.0) mg/dl Direct Bilirubin (0-0.2) mg/dl AST (13-39) U/L ALT (7-52) U/L Alkaline Phosphatase (34-104) U/L Troponin I High Sens (0-14) pg/ml B-Natriuretic Peptide (0-100) pg/ml Total Protein (6.0-8.3) gm/dl Albumin (3.4-5.0) gm/dl Procalcitonin (0-0.5) ng/ml Urine Color Yellow Urine Appearance Clear (Clear) Urine pH 8.5 H (4.5-7.5) Ur Specific [place] 1.028 (1.000-1.030) Urine Protein Negative (Negative) Urine Glucose (UA) Negative (Negative) Urine Ketones Trace H (Negative) Urine Blood Negative (Negative) Urine Nitrite Negative (Negative) Urine Bilirubin Negative (Negative) Urine Urobilinogen Negative (Negative) Ur Leukocyte Esterase 1+ H (Negative) Urine WBC (Auto) 0-5 (0-5) /hpf Urine RBC (Auto) 0-2 (0-2) /hpf U Hyaline Cast (Auto) 0-2 (0-2) /lpf U Epithel Cells (Auto) 0-2 (0-2) /hpf Urine Bacteria (Auto) None Seen (None Seen) SARS-CoV-2 (PCR) (Negative) Influenza Type A (PCR) (Neg) Influenza Type B (PCR) (Neg) RSV (RT-PCR) (Neg) Imaging Data Attestation: I personally reviewed and interpreted this imaging study as follows: My Impression: Chest x-ray negative. Airway clear. No pneumothorax. No consolidation. No cardiomegaly or cephalization.. No free air under the diaphragm. No fractures of the skeletal structures. Radiologist's Impression: Abdomen/Pelvis CT 04/09/24 19:46 Exam(s): CT ABDOMEN + PELVIS With Contrast IV Amt: 120ml opti 320 EXAM: CT Abdomen and Pelvis With Intravenous Contrast CLINICAL HISTORY: abd pain. TECHNIQUE: Axial computed tomography images of the abdomen and pelvis with intravenous contrast. CTDI is 13.11 mGy and DLP is 593.82 mGy-cm. Automated exposure control was utilized for the study. A dose lowering technique was utilized adhering to the principles of ALARA. CONTRAST: Patient received 120ml opti 320 of IV contrast COMPARISON: CT abdomen and pelvis with contrast dated 08/21/2019 FINDINGS: Artifacts: Scatter artifact likely related to patient's arm position. Limitations: There is respiratory artifact, which degrades image quality on multiple image slices. Lung bases: For findings regarding the lung bases, please see the CT report of the chest performed concurrently. No consolidation. ABDOMEN: Liver: Stable subcentimeter hypoattenuating areas throughout the liver. The liver demonstrates normal enhancement. Gallbladder and bile ducts: Unremarkable. No calcified stones. No ductal dilation. Pancreas: Unremarkable. No mass. No ductal dilation. Spleen: Unremarkable. No splenomegaly. Adrenals: Unremarkable. No mass. Kidneys and ureters: The kidneys demonstrate normal enhancement. No hydronephrosis. Incidental extrarenal pelvis on the right. No calyceal dilatation. No obstructive ureteral stones. Stomach and bowel: The stomach is predominantly decompressed with only minimal fluid and gas. No significant gastric mucosal thickening. No evidence for bowel obstruction. No definite asymmetric bowel mucosal abnormality, accounting for limitations with respiratory artifact. Minimal stool burden. No appreciable diverticulitis. PELVIS: Appendix: The appendix is not clearly delineated. No secondary findings to suggest acute appendicitis. Bladder: Unremarkable. No mass. Reproductive: Status post hysterectomy. ABDOMEN and PELVIS: Intraperitoneal space: Unremarkable. No free air. No significant fluid collection. Bones/joints: No acute fracture. No dislocation. Soft tissues: Unremarkable. Vasculature: Extensive atherosclerotic calcification of the aorta, which is somewhat tortuous. No dissection or aneurysm. Lymph nodes: Unremarkable. No enlarged lymph nodes. IMPRESSION: No evidence for bowel obstruction. No definite asymmetric bowel mucosal abnormality, accounting for limitations with respiratory artifact. Minimal stool burden. No appreciable diverticulitis. No free intraperitoneal fluid or pneumoperitoneum. Electronically signed by: Dannie Solis MD 04/09/24 21:[address] 04/09/24 19:46 Exam(s): CT HEAD Without Contrast EXAM: CT Head Without Intravenous Contrast CLINICAL HISTORY: ams weakness. TECHNIQUE: Axial computed tomography images of the head/brain without intravenous contrast. CTDI is 36.79 mGy and DLP is 546.36 mGy-cm. Automated exposure control was utilized for the study. A dose lowering technique was utilized adhering to the principles of ALARA. COMPARISON: CT head without contrast dated 05/06/2018 FINDINGS: Brain: No intracranial hemorrhage. There is a new area of encephalomalacia involving the posterior lateral right occipital region. However, this appears late subacute to chronic. Stable hypodense areas involving the inferior left exit ganglia and the left thalamus. Similar underlying prominence of the cerebral sulci and sylvian fissures. No significant mass effect. No significant white matter disease. Ventricles: No midline shift, ventricular effacement or ventriculomegaly. Bones/joints: Unremarkable. No acute fracture. Soft tissues: Unremarkable. Sinuses: Unremarkable as visualized. No acute sinusitis. Mastoid air cells: Unremarkable as visualized. No mastoid effusion. IMPRESSION: No acute intracranial process identified. There is a new area of encephalomalacia involving the posterior lateral right occipital region when compared to the previous examination. However, this appears late subacute to chronic in nature. No significant mass effect or midline shift. Stable lacunar changes involving the left basal ganglia and thalamus. Electronically signed by: Dannie Solis MD 04/09/24 20:49 PM Chest CTA 04/09/24 20:03 Exam(s): CTA CHEST IV Amt: 120ml opti 320 EXAM: CT Angiography Chest With Intravenous Contrast CLINICAL HISTORY: ro PE. TECHNIQUE: Axial computed tomographic angiography images of the chest with intravenous contrast. CTDI is 13.11 mGy and DLP is 378.58 mGy-cm. Automated exposure control was utilized for the study. A dose lowering technique was utilized adhering to the principles of ALARA. MIP reconstructed images were created and reviewed. COMPARISON: No relevant prior studies available. FINDINGS: Limitations: There is respiratory artifact, which degrades image quality on multiple image slices. Pulmonary arteries: Accounting for respiratory artifact, there is no definite evidence for pulmonary embolism. Aorta: The ascending aorta is ectatic, with the mid ascending aorta measuring 4.2 x 4.3 cm. The aortic arch and descending aorta are normal in caliber with extensive atherosclerotic calcification. No thoracic aortic aneurysm. Lungs: Accounting for respiratory artifact, there is no definite evidence for focal airspace consolidation. Minimal dependent subsegmental presumed atelectatic changes noted posteriorly. Pleural space: Unremarkable. No significant effusion. No pneumothorax. Heart: Cardiomegaly. Mild to moderate hypodense pericardial effusion. Prominent coronary artery calcification. Bones/joints: No acute fracture. No dislocation. Soft tissues: Unremarkable. Lymph nodes: Unremarkable. No enlarged lymph nodes. Tubes, lines and devices: Left subclavian approach single lead pacer noted. IMPRESSION: 1. Accounting for respiratory artifact, there is no definite evidence for pulmonary embolism. 2. Cardiomegaly. Mild to moderate hypodense pericardial effusion. Ectasia of the unenhanced ascending aorta incidentally noted. 3. Accounting for respiratory artifact, there is no definite evidence for focal airspace consolidation. Minimal dependent subsegmental presumed atelectatic changes noted posteriorly. No pleural effusion or pneumothorax. Electronically signed by: Dannie Solis MD 04/09/24 20:54 PM ECG Data Attestation: I personally reviewed and interpreted this ECG as follows: Additional Comments: Atrial fibrillation with a rate of 95. QRS 98 QTc 480. Occasionally paced beats. No significant change from the EKG done in February 2024 MDM Narrative 1919: The patient was evaluated in room A11. A complete history and physical exam was performed Cardiac monitoring: An order was placed for continuous cardiac monitoring. The monitor shows a rate of 90 with atrial fibrilation rhythm interpreted by me Patient hypoxic on room air. Supplemental oxygen was applied which improved the patient's oxygen saturation. 2144: Vital signs stable on supplemental oxygen. Labs are unremarkable. CT of the chest shows no PE but does show pericardial effusion. CT of the head shows a possible subacute infarct. CT abdomen pelvis negative. Patient will be admitted to the [facility] hospitalist team. Impression & Plan Hypoxia, Pericardial effusion, Stroke Discharge Plan Visit Data Chief Complaint: Vomiting Stated Complaint: VOMITING, SOB ?UTI ED Provider: Pavel Henley Discharge Problem: Hypoxia, Pericardial effusion, Stroke Patient Disposition: Admitted As Inpatient Forms Stand Alone Forms: My [facility] Prescriptions Prescriptions: No Action donepezil 5 mg tablet 5 mg PO DAILY atorvastatin 20 mg tablet 20 mg PO DAILY@2100 sertraline 50 mg tablet 50 mg PO DAILY@2100 docusate sodium 100 mg Tablet 200 mg PO BID aspirin 325 mg Tablet 325 mg PO DAILY@2100 famotidine [Pepcid] 40 mg tablet 40 mg PO DAILY@2100 omeprazole 40 mg capsule,delayed release(DR/EC) 40 mg PO DAILY@1000 levothyroxine [Synthroid] 75 mcg tablet 75 mcg PO DAILY@1000 pregabalin [Lyrica] 50 mg capsule 100 mg PO DAILY@1000,2100 cranberry extract 500 mg Tablet 1,000 mg PO DAILY Rx Instructions: administer with meals ibandronate 150 mg tablet 150 mg PO .MONTHLY ferrous sulfate 325 mg (65 mg iron) tablet 325 mg PO BID melatonin 3 mg Tablet 3 mg PO HS Qty: 30 0RF diltiazem HCl 180 mg capsule,extended release 24hr 180 mg PO DAILY Qty: 30 1RF magnesium oxide 400 mg magnesium tablet 400 mg PO DAILY Qty: 30 0RF furosemide [Lasix] 20 mg tablet 20 mg PO DAILY PRN (Reason: edema/swelling of legs) Qty: 30 0RF zolpidem 10 mg tablet 5 mg PO HS PRN (Reason: Insomnia) sennosides [senna] 8.6 mg tablet 8.6 mg PO BID PRN (Reason: Constipation) cyanocobalamin (vitamin B-12) [Vitamin B-12] 2,500 mcg tablet, sublingual 2,500 mcg PO DAILY Referrals Referrals: Edgar Fine PA-C [Primary Care Provider] - Discharge Problem: Stroke Qualifiers: CVA mechanism: unspecified Qualified Code(s): I63.9 - Cerebral infarction, unspecified
[2024-04-09] MEDS ORDERED: ACETAMINOPHEN 500 MG TAB PO PRN (23:38)
[2024-04-09] MEDS ORDERED: FUROSEMIDE 20 MG TAB PO PRN (23:38)
[2024-04-09] MEDS ORDERED: POLYETHYLENE (MIRALAX) 17 GM PACK PO PRN (23:38)
[2024-04-10] MEDS: FLUTICASONE PROPIONATE NA SPR 16 GM BTL SCH (00:24)
[2024-04-10] MEDS: FUROSEMIDE INJ 20 MG/2 ML VIAL IV STA (00:24)
[2024-04-10] MEDS: FAMOTIDINE 20MG IV PUSH 20 MG/5 ML SYR IV SCH (00:26)
[2024-04-10] MEDS: PANTOprazole 40 MG in SYRINGE 0 ML IV SCH ×2 (00:26→21:18)
[2024-04-10] MEDS: ONDANSETRON INJ 2 MG/ML 2 ML VIAL IV PRN (05:20)
[2024-04-10 06:18] LABS: Base Excess VBG 1.2 mEq/L; HCO3 VBG 27 mmol/L; Oxygen Saturation VBG 81.4 %; PCO2 VBG 44 mmHg (38-50); PO2 VBG 49 mmHg; pH VBG 7.39 (7.36-7.41)
[2024-04-10 06:40] LABS: BUN Creatinine Ratio 14.9 (10-20); Calcium 9.3 mg/dl (8.6-10.3); Creatinine Clr Calc Pharmacy 37.7 ml/min; Est GFR (African American) 69.4 ml/min; Est GFR (Non-African American) 59.9 ml/min; Potassium 3.3 mmol/L (3.5-5.1)
--- NOTE | 2024-04-10 07:45 | XRay Report ---
XR chest 1V portable HISTORY: Sepsis COMPARISON: Chest 02/21/2024. FINDINGS: No pneumothorax. The heart remains mildly enlarged. There is a left-sided single lead pacem césar. No evidence for pulmonary edema. No acute fractures. No pleural effusions. Left basilar linear densities favor subsegmental atelectasis. Calcifications within the aortic knob. IMPRESSION: No significant change compared to the prior study. No acute process. ACT 112: Negative or not required by law. Electronically signed by: Reji Olsen M.D. 04/10/2024 7:44 AM
[2024-04-10 07:49] LABS: iSTAT Creatinine 0.8 mg/dl (0.6-1.3); iSTAT Hemoglobin 12.9 g/dl (12.0-16.0); iSTAT Ionized Calcium 1.09 mmol/l (1.12-1.32); iSTAT Potassium 3.6 mmol/L (3.3-5.0)
[2024-04-10] MEDS: SUCRALFATE 1 GM TAB PO SCH (08:01)
[2024-04-10] MEDS: DOCUSATE SODIUM 100 MG CAP PO SCH (08:25)
[2024-04-10] MEDS: DONEPEZIL HCL 5 MG TAB PO SCH (08:25)
[2024-04-10] MEDS: dilTIAZem HCL 180 MG CAPCR PO SCH (08:25)
[2024-04-10] MEDS: FUROSEMIDE 20 MG TAB PO SCH (08:26)
[2024-04-10] MEDS: ENOXAPARIN INJ 30 MG/0.3 ML SYR SQ SCH (08:26)
[2024-04-10] MEDS: guaiFENesin 600 MG TABCR PO SCH (08:26)
--- NOTE | 2024-04-10 09:26 | Electrocardiogram Report ---
Test Reason : Blood Pressure : */* mmHG Vent. Rate : 95 BPM Atrial Rate : * BPM P-R Int : * ms QRS Dur : 98 ms QT Int : 382 ms P-R-T Axes : * 30 -83 degrees QTcB Int : 480 ms Atrial fibrillation with frequent ventricular-paced complexes Prolonged QT T-wave inversion in Lateral leads , consider ischemia Abnormal ECG When compared with ECG of 22-Feb-2024 14:30, Vent. rate has increased by 31 bpm T-wave inversion in Lateral leads now present Confirmed by Kanu Schwartz ([id number]) on 04/10/2024 9:25:52 AM Referred By: REFERRED SELF Confirmed By: Kanu Schwartz
[2024-04-10] MEDS: PROMETHAZINE 12.5 MG/50.5 ML BAG IV PRN (10:26)
[2024-04-10] MEDS: hydrALAZINE 10 MG TAB PO SCH (10:48)
[2024-04-10] MEDS: LEVOTHYROXINE SODIUM 75 MCG TABLET PO SCH (11:28)
[2024-04-10] MEDS: PREGABALIN 100 MG CAP PO SCH (11:39)
[2024-04-10] MEDS: METOCLOPRAMIDE HCL INJ 5 MG/ML 2 ML VIAL IV SCH (11:40)
[2024-04-10] MEDS: D5NSS + 20MEQ KCL 20 MEQ/1,000 ML BAG IV SCH (11:40)
[2024-04-10] MEDS: FAMOTIDINE 20 MG TAB PO SCH (11:50)
--- NOTE | 2024-04-10 12:12 | Hospitalist Progress Note ---
Date of Service April 10, 2024 Assessment & Plan (1) Acute respiratory failure with hypoxemia: Plan: She may have aspirated due to vomiting. Continue oxygen per nasal cannula to maintain saturation greater than 90%. Wean off as tolerated. Admission chest x-ray negative for CHF or overt pneumonia. Chest CTA negative for PE on admission. (2) Nausea and vomiting: Plan: Present on admission. She may have aspirated causing the acute hypoxic respiratory failure. Scheduled dosing of parenteral Reglan has been ordered. Abdomen CT scan negative for obstruction on admission (3) Pericardial effusion: Plan: Mild to moderate pericardial effusion noted on CT Chest. No evidence of tamponade. No need for intervention at this time. (4) PND (post-nasal drip): Plan: Most likely viral. Symptomatic care. (5) CVA (cerebral vascular accident): Plan: Right posterior lateral area of encephalomalacia seen on head CT scan. This appears to be chronic. No new focal neurological deficits. No intervention necessary at this time (6) Atrial fibrillation: Plan: Chronic. Telemetry. Increase diltiazem CD when able to take p.o. (7) Abdominal pain: Plan: Diffuse. Associated with protracted nausea and vomiting. No rebound or guarding. No hepatosplenomegaly. No obstruction seen on CT scan. Plan To be determined Admission and Anticipated Discharge Date Admission Date: April 09, 2024 Subjective The patient has nausea and vomiting at the time of my rounds. Abdomen is diffusely tender but bowel sounds are active and there is no evidence of obstruction seen on admission CT scan. IV fluids have been ordered with potassium replacement. She needs better blood pressure control but is unable to take oral medication at this time. As needed IV hydralazine will be utilized. Scheduled IV Reglan dosing has been started. Clear liquid diet for now. Continue intravenous Protonix. She may have aspirated causing the acute hypoxic respiratory failure. Continue oxygen supplementation to maintain saturation greater than 90%. Admission chest x-ray is negative for CHF or pneumonia. Chest CTA on admission negative for PE. She does have a moderate-sized pericardial effusion but I doubt the presence of tamponade. Review of Systems 2 Review of Systems: Constitutionalno fever or chills ENTno blurred vision, no double vision, no epistaxis, no sore throat Respiratoryno cough, no wheezing, no shortness of breath Cardiacno palpitations, no chest pain, no syncope GInausea with intermittent vomiting. No hematemesis. No melena, hematochezia GUno urinary retention, no urinary incontinence, no dysuria, no hematuria Musculoskeletalno joint pain, no muscle tenderness Skinno bruising, no rashes, no pruritus Neurono isolated weakness, no paresthesia. She does have generalized weakness Psychno depression, no anxiety Physical Exam 2 Physical Exam: General-alert and oriented x3, no fever, no chills HEENT-head atraumatic and normocephalic, pupils equal and reactive to light, extraocular muscles intact Neck-no lymphadenopathy or thyromegaly, trachea midline Chest-clear to auscultation. No rales, wheezing or rhonchi Cardiac-regular rate and rhythm, normal S1 and S2 Abdomen-normal bowel sounds, no hepatosplenomegaly. Diffuse mild tenderness. No masses. No rebound or guarding Extremities-no cyanosis, clubbing, or edema Neuro-cranial nerves II through XII intact, motor and sensory function within normal limits, strength symmetrical with generalized weakness, no focal deficits Psych-flat affect Results & Data Results & Data Vital Signs (Past 12 Hours) Vital Signs Temp Pulse Pulse Resp BP BP Pulse Ox 04/10/24 11:31 36.4 C L 77 16 199/70 H 98 04/10/24 08:00 04/10/24 07:44 36.7 C 79 16 187/77 H 98 04/10/24 04:00 36.7 C 76 18 159/76 H 94 04/10/24 01:31 183/65 H 04/10/24 01:00 85 04/10/24 00:20 85 04/10/24 00:10 O2 Del Method O2 Flow Rate 04/10/24 11:31 Nasal Cannula 3 04/10/24 08:00 Nasal Cannula 3 04/10/24 07:44 Nasal Cannula 3 04/10/24 04:00 Nasal Cannula 4 04/10/24 01:31 04/10/24 01:00 04/10/24 00:20 04/10/24 00:10 Nasal Cannula 3 Laboratory Results 04/09/24 19:25 04/10/24 06:03 PG Care Time/CCT Total # of Minutes Spent Total Time Spent with Patient: Total time spent is greater than 50% in coordination of care (as documented) at patient's floor/unit and/or counseling patient: Coding Level of Care Code 67223 SUB INP/OBS CARE 3/50MIN Diagnoses Acute respiratory failure with hypoxemia J96.01 Nausea and vomiting R11.2 Pericardial effusion I31.39 PND (post-nasal drip) R09.82 CVA (cerebral vascular accident) I63.9 Atrial fibrillation I48.91 Abdominal pain R10.9
--- NOTE | 2024-04-10 12:50 | Cardiology Consultation ---
Date of Consultation April 10, 2024 Assessment & Plan (1) Pericardial effusion: (2) Nausea and vomiting: (3) Abdominal pain: (4) Presence of permanent cardiac pacemaker: (5) Permanent atrial fibrillation: Plan 88-year-old woman admitted with respiratory insufficiency and GI symptoms noted to have "mild to moderate pericardial effusion on chest CT" whereas she had a small pericardial effusion on echocardiogram February 2024. Heart sounds readily auscultatable, neck veins not elevated, she is not hypotensive, so unlikely any effusion is playing a role in her current symptomatology. Often, chest CT can exaggerate the size of pericardial effusion, but reasonable to check limited follow-up echo to exclude progression of her pericardial effusion. Almost the size of her effusion has substantially increased, no further workup necessary. Her atrial fibrillation is permanent and anticoagulation is contraindicated, rate control has been appropriate this hospitalization. Etiology of nausea/vomiting/abdominal pain uncertain, but appears noncardiac. Further recommendations based upon echo results. 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 She is followed by Dr. Landaverde. Etiology of her February respiratory insufficiency is unclear, she responded to BiPAP and did not require significant diuresis, pulmonary consultation felt she had no ongoing pulmonary issues. Echo at that time showed normal systolic function with a small pericardial effusion. Yesterday, she was admitted with malaise, PND, anorexia with vomiting and significant dyspnea. Chest x-ray and chest CT showed no pulmonary infiltrates but did suggest a "mild to moderate hypodense pericardial effusion". ECG showed atrial fibrillation with ventricular rate 95 bpm, there was T wave inversion in lateral leads suggesting possible ischemia, however troponin was normal at 12.3. On evaluation this morning, the patient continues to have nausea and a nonproductive cough, she denies any chest pain or dyspnea at rest. She does have abdominal discomfort most notable in the right lower quadrant. She is afebrile and has normal white count. Hemodynamics overnight notable for hypertension with generally controlled heart rate. Allergies Allergy/AdvReac Type Severity Reaction Status Date / Time oxycodone AdvReac Intermediate HALLUCINATI Verified 04/09/24 21:06 ONS morphine AdvReac Unknown DELIRIUM Verified 04/09/24 21:06 Home Medications Medication Instructions Recorded Confirmed Type aspirin 325 mg tablet 325 mg PO DAILY@209905/06/18 04/09/24 History famotidine 40 mg tablet (Pepcid) 40 mg PO DAILY@209905/06/18 04/09/24 History levothyroxine 75 mcg tablet 75 mcg PO DAILY@1000 05/06/18 04/09/24 History (Synthroid) omeprazole 40 mg capsule,delayed 40 mg PO DAILY@99905/06/18 04/09/24 History release pregabalin 50 mg capsule (Lyrica) 100 mg PO DAILY@1000,209905/06/18 04/09/24 History atorvastatin 20 mg tablet 20 mg PO DAILY@209911/16/18 04/09/24 History docusate sodium 100 mg tablet 200 mg PO BID 11/16/18 04/09/24 History sertraline 50 mg tablet 50 mg PO DAILY@209911/16/18 04/09/24 History donepezil 5 mg tablet 5 mg PO DAILY 02/09/22 04/09/24 History cranberry extract 500 mg tablet 1,000 mg PO DAILY 02/21/24 04/09/24 History ferrous sulfate 325 mg (65 mg 325 mg PO BID 02/21/24 04/09/24 History iron) tablet ibandronate 150 mg tablet 150 mg PO .MONTHLY 02/21/24 04/09/24 History diltiazem HCl 180 mg 180 mg PO DAILY #30 caps 02/28/24 04/09/24 Rx capsule,extended release 24 hr furosemide 20 mg tablet (Lasix) 20 mg PO DAILY PRN edema/swelling 02/28/24 04/09/24 Rx of legs #30 tabs magnesium oxide 400 mg PO DAILY #30 tabs 02/28/24 04/09/24 Rx melatonin 3 mg tablet 3 mg PO HS #30 tabs 02/28/24 04/09/24 Rx cyanocobalamin (vitamin B-12) 2,500 mcg PO DAILY 04/09/24 04/09/24 History 2,500 mcg sublingual tablet (Vitamin B-12) sennosides 8.6 mg tablet (senna) 8.6 mg PO BID PRN Constipation 04/09/24 4 History zolpidem 10 mg tablet 5 mg PO HS PRN Insomnia 04/09/24 04/09/24 History Patient History Medical History (Updated 04/10/24 @ 13:04 by Kanu Schwartz MD) Epidural hematoma Weight loss, unintentional Tricuspid regurgitation Tachy-jazmine syndrome Pulmonary hypertension Dyslipidemia Cerebrovascular disease Benign hypertension Aortic regurgitation Anxiety disorder Headache Surgical History S/P tonsillectomy H/O: hysterectomy History of bilateral tubal ligation History of appendectomy Family History Other Family history non-contributory Social History Smoking Status: Never smoker Do You Dip or Chew Tobacco: No; Hx Alcohol Use: No Hx Substance Use: No Preferred Language: Welsh Communication Ability: Effective Filter Pulp Washer Required: No Beliefs That Will Affect Care: None marital status: / Current Living Situation: Family Current Living Situation Comment: [facility] Other Information That Helps Us Care for You: No Feels Safe at Home: Yes Safety Concerns: Feels Safe At This Time Assistive Devices: Cane, Raised Toilet Seat and Walker Physical Exam Physical Exam: Elderly white female appears uncomfortable but not acutely distressed. Afebrile. BP 189/70 mmHg. Pulse 78 bpm and irregular. Respirations 16 and unlabored. Skin: no ecchymoses or generalized lesions. HEENT: unremarkable. Neck: JVP at the clavicle at 90 degrees, no carotid bruits. Lungs: Decreased and tubular breath sounds bilaterally but generally clear. No obvious wheezing or accessory muscle use. Cardiac: irregular rhythm, normal S1-2, no murmur. Abdomen: benign. Extremities: no edema, pulses intact. Neurologic: normal affect and conversation, nonfocal. Results & Data Laboratory Results Potassium 3.3, otherwise normal electrolytes, BUN 13, creatinine 0.87. Troponin normal. BNP 170 (previously 187). Diagnostic Findings Chest x-ray and ECG as noted in HPI. PG Care Time/CCT Total # of Minutes Spent Total Time Spent with Patient: Total time spent is greater than 50% in coordination of care (as documented) at patient's floor/unit and/or counseling patient: Coding Level of Care Code 84112 IN/OBS CONSULT LVL 4,60M Diagnoses Pericardial effusion I31.39 Nausea and vomiting R11.2 Abdominal pain R10.9 Presence of permanent cardiac pacemaker Z95.0 Permanent atrial fibrillation I48.21
[2024-04-10] MEDS: POTASSIUM CHLORIDE CRTAB 20 MEQ TABCR PO ONE (14:03)
--- NOTE | 2024-04-10 14:36 | XCELERA ---
[id number]
[2024-04-10] MEDS: ASPIRIN 325 MG ECTAB PO SCH (21:19)
[2024-04-10] MEDS: ATORVASTATIN 20 MG TAB PO SCH (21:19)
[2024-04-10] MEDS: SERTRALINE HCL 50 MG TABLET PO SCH (21:19)
[2024-04-10] MEDS: MELATONIN 3 MG TAB PO SCH (21:19)
[2024-04-11 07:32] LABS: Calcium 8.5 mg/dl (8.6-10.3); Creatinine Clr Calc Pharmacy 42.6 ml/min; Est GFR (African American) 80.5 ml/min; Est GFR (Non-African American) 69.4 ml/min; Potassium 3.1 mmol/L (3.5-5.1)
[2024-04-11] MEDS: dilTIAZem HCL 240 MG CAPCR PO SCH (09:12)
[2024-04-11] MEDS: POTASSIUM CHLORIDE 20 MEQ/15 ML UDC PO SCH (14:37)
--- NOTE | 2024-04-11 16:30 | Hospitalist Progress Note ---
Date of Service April 11, 2024 Assessment & Plan (1) Acute respiratory failure with hypoxemia: Plan: She may have aspirated due to vomiting. Continue oxygen per nasal cannula to maintain saturation greater than 90%. Wean off as tolerated. Admission chest x-ray negative for CHF or overt pneumonia. Chest CTA negative for PE on admission. She is only requiring 3 L of oxygen at this time (2) Nausea and vomiting: Plan: Present on admission. She may have aspirated causing the acute hypoxic respiratory failure. Nausea and vomiting have resolved with parenteral Reglan scheduled dosing. Abdomen CT scan negative for obstruction on admission. Diet has been advanced (3) Pericardial effusion: Plan: Mild to moderate pericardial effusion noted on CT Chest. No evidence of tamponade. No need for intervention at this time. Appreciate cardiology consultation and recommendations (4) PND (post-nasal drip): Plan: Most likely viral. Symptomatic care. (5) CVA (cerebral vascular accident): Plan: Right posterior lateral area of encephalomalacia seen on head CT scan. This appears to be chronic. No new focal neurological deficits. No intervention necessary at this time (6) Atrial fibrillation: Plan: Chronic. Telemetry. Rate controlled. Diltiazem CD dosage and hydralazine have been down titrated today, April 11 (7) Abdominal pain: Plan: Now resolved. Associated with protracted nausea and vomiting. No rebound or guarding. No hepatosplenomegaly. No obstruction seen on CT scan. Plan Anticipate discharge to [facility] within the next 48 to 72 hours Admission and Anticipated Discharge Date Admission Date: April 09, 2024 Subjective She looks and feels better today. Nausea has resolved. Diet has been advanced. Blood pressure has improved. Diltiazem and hydralazine have been down titrated. Oral potassium replacement underway. Diet advanced to full liquid diet. OT and PT both recommend return to rehab. Probable discharge to [facility] within the next 48 to 72 hours. Review of Systems 2 Review of Systems: Constitutionalno fever or chills ENTno blurred vision, no double vision, no epistaxis, no sore throat Respiratoryno cough, no wheezing, no shortness of breath Cardiacno palpitations, no chest pain, no syncope GInausea with intermittent vomiting have resolved. No hematemesis. No melena, hematochezia GUno urinary retention, no urinary incontinence, no dysuria, no hematuria Musculoskeletalno joint pain, no muscle tenderness Skinno bruising, no rashes, no pruritus Neurono isolated weakness, no paresthesia. She does have generalized weakness Psychno depression, no anxiety Physical Exam 2 Physical Exam: General-alert and oriented x3, no fever, no chills HEENT-head atraumatic and normocephalic, pupils equal and reactive to light, extraocular muscles intact Neck-no lymphadenopathy or thyromegaly, trachea midline Chest-clear to auscultation. No rales, wheezing or rhonchi Cardiac-regular rate and rhythm, normal S1 and S2 Abdomen-normal bowel sounds, no hepatosplenomegaly. Diffuse mild tenderness has improved. No masses. No rebound or guarding Extremities-no cyanosis, clubbing, or edema Neuro-cranial nerves II through XII intact, motor and sensory function within normal limits, strength symmetrical with generalized weakness, no focal deficits Psych-normal affect Results & Data Results & Data Vital Signs (Past 12 Hours) Vital Signs Temp Pulse Resp BP BP Pulse Ox Pulse Ox 04/11/24 16:20 36.6 C 68 18 144/75 H 97 04/11/24 12:08 97 04/11/24 11:38 36.5 C 85 18 118/72 97 04/11/24 07:53 36.5 C 75 18 183/73 H 96 O2 Del Method O2 Flow Rate O2 Flow Rate 04/11/24 16:20 Room Air 04/11/24 12:08 2 04/11/24 11:38 Room Air 04/11/24 07:53 Nasal Cannula 3 Laboratory Results 04/09/24 19:25 04/11/24 06:49 PG Care Time/CCT Total # of Minutes Spent Total Time Spent with Patient: Total time spent is greater than 50% in coordination of care (as documented) at patient's floor/unit and/or counseling patient: Coding Level of Care Code 40516 SUB INP/OBS CARE 3/50MIN Diagnoses Acute respiratory failure with hypoxemia J96.01 Nausea and vomiting R11.2 Pericardial effusion I31.39 PND (post-nasal drip) R09.82 CVA (cerebral vascular accident) I63.9 Atrial fibrillation I48.91 Abdominal pain R10.9
[2024-04-11] MEDS: hydrALAZINE 10 MG TAB PO SCH (19:57)
[2024-04-12] MEDS: dilTIAZem HCL 180 MG CAPCR PO SCH (09:23)
[2024-04-12 11:01] LABS: BUN Creatinine Ratio 8.5 (10-20); Calcium 8.3 mg/dl (8.6-10.3); Est GFR (African American) 74.6 ml/min; Est GFR (Non-African American) 64.3 ml/min; Potassium 3.4 mmol/L (3.5-5.1)
--- NOTE | 2024-04-12 12:28 | Cardiology Progress Note ---
Date of Service April 12, 2024 Assessment & Plan (1) Pericardial effusion: (2) Presence of permanent cardiac pacemaker: (3) Permanent atrial fibrillation: Plan Echocardiogram showed only a small amount of circumferential pericardial effusion (0 to 1 cm depth) which is unchanged in size and character compared with 02/22/2024 study. At this point, none of her symptoms would be attributable to this clinically insignificant pericardial effusion. Atrial fibrillation is permanent, upper rate has been reasonable and she has a pacemaker to prevent bradycardia. Will sign off, please contact if any change in her cardiac status. Admission and Anticipated Discharge Date Admission Date: April 09, 2024 Subjective Was sleeping but easily awakened, denied chest pain, denied dyspnea at rest. States that she feels very "tired", no other somatic complaints. Physical Exam Physical Exam: No acute distress. BP 160/69 mmHg. Pulse 70 bpm and irregular. Respirations 16 and unlabored. Skin: no ecchymoses or generalized lesions. HEENT: unremarkable. Neck: JVP at the clavicle at 90 degrees, no carotid bruits. Lungs: Decreased and tubular breath sounds bilaterally but generally clear. No obvious wheezing or accessory muscle use. Cardiac: irregular rhythm, normal S1-2, no murmur. Abdomen: benign. Extremities: no edema, pulses intact. Neurologic: normal affect and conversation, nonfocal. Results & Data Vital Signs (Past 12 Hours) Vital Signs Temp Pulse Resp BP Pulse Ox O2 Del Method O2 Flow Rate 04/12/24 11:50 97.5 F L 73 16 160/69 H 96 Nasal Cannula 3 04/12/24 07:57 97.7 F 96 H 16 154/74 H 97 Room Air 04/12/24 03:23 97.5 F L 72 20 162/69 H 96 Nasal Cannula 2 Laboratory Results Sodium 145, potassium 3.4, BUN 7, creatinine 0.82. PG Care Time/CCT Total # of Minutes Spent Total Time Spent with Patient: Total time spent is greater than 50% in coordination of care (as documented) at patient's floor/unit and/or counseling patient: Coding Level of Care Code 26127 SUB INP/OBS CARE 25MIN Diagnoses Pericardial effusion I31.39 Presence of permanent cardiac pacemaker Z95.0 Permanent atrial fibrillation I48.21
[2024-04-12] MEDS ORDERED: methylPREDNISolone 10 mg/mL (For Ped Dose < 7mg) IV SCH (13:15)
[2024-04-12] MEDS: POTASSIUM CHLORIDE / WTR 10 MEQ/100 ML PLCT IV SCH (13:55)
[2024-04-12] MEDS: methylPREDNISolone 40 MG in SYRINGE 0 ML IV SCH (15:15)
--- NOTE | 2024-04-12 15:27 | Hospitalist Progress Note ---
Date of Service April 12, 2024 Assessment & Plan (1) Acute respiratory failure with hypoxemia: Plan: She may have aspirated due to vomiting. Continue oxygen per nasal cannula to maintain saturation greater than 90%. Wean off as tolerated. Admission chest x-ray negative for CHF or overt pneumonia. Chest CTA negative for PE on admission. She is now on room air. Resolved (2) Nausea and vomiting: Plan: Present on admission. She may have aspirated causing the acute hypoxic respiratory failure. Vomiting has resolved with parenteral Reglan scheduled dosing. Nausea is minimal now. Abdomen CT scan negative for obstruction on admission. She does still have a gallbladder although she told me earlier she has previously had gallbladder removed. HIDA with ejection fraction ordered. Continue IV fluids for now since oral intake is poor (3) Pericardial effusion: Plan: Mild to moderate pericardial effusion noted on CT Chest. No evidence of tamponade. No need for intervention at this time. Appreciate cardiology consultation and recommendations (4) PND (post-nasal drip): Plan: Most likely viral. Symptomatic care. (5) CVA (cerebral vascular accident): Plan: Right posterior lateral area of encephalomalacia seen on head CT scan. This appears to be chronic. No new focal neurological deficits. No intervention necessary at this time (6) Atrial fibrillation: Plan: Chronic. Telemetry. Rate controlled. Diltiazem CD dosage and hydralazine have been down titrated on April 11 (7) Abdominal pain: Plan: Mainly right upper quadrant area. No rebound or guarding. Associated with protracted nausea and vomiting. No rebound or guarding. No hepatosplenomegaly. No obstruction seen on CT scan. Will need to rule out chronic cholecystitis with HIDA scan with ejection fraction Plan Anticipate discharge to [facility] within the next 24-48 hours Admission and Anticipated Discharge Date Admission Date: April 09, 2024 Subjective Ill-appearing. Poor appetite. No distress. She states her nausea has nearly resolved. She told me previously that she had a cholecystectomy but review of abdominal CT scan on admission reveals presence of gallbladder. She may have underlying chronic cholecystitis causing her current symptoms. HIDA with ejection fraction has been ordered and pending. Continue IV fluids for now since oral intake is poor. Parenteral potassium replacement continues. Blood pressure is now acceptable. Review of Systems 2 Review of Systems: Constitutionalno fever or chills ENTno blurred vision, no double vision, no epistaxis, no sore throat Respiratoryno cough, no wheezing, no shortness of breath Cardiacno palpitations, no chest pain, no syncope GInausea with intermittent vomiting have resolved. No hematemesis. No melena, hematochezia GUno urinary retention, no urinary incontinence, no dysuria, no hematuria Musculoskeletalno joint pain, no muscle tenderness Skinno bruising, no rashes, no pruritus Neurono isolated weakness, no paresthesia. She does have generalized weakness Psychno depression, no anxiety Physical Exam 2 Physical Exam: General-alert and oriented x3, no fever, no chills HEENT-head atraumatic and normocephalic, pupils equal and reactive to light, extraocular muscles intact Neck-no lymphadenopathy or thyromegaly, trachea midline Chest-clear to auscultation. No rales, wheezing or rhonchi Cardiac-regular rate and rhythm, normal S1 and S2 Abdomen-normal bowel sounds, no hepatosplenomegaly. Diffuse mild tenderness has improved. No masses. No rebound or guarding Extremities-no cyanosis, clubbing, or edema Neuro-cranial nerves II through XII intact, motor and sensory function within normal limits, strength symmetrical with generalized weakness, no focal deficits Psych-normal affect Results & Data Results & Data Vital Signs (Past 12 Hours) Vital Signs Temp Pulse Resp BP Pulse Ox O2 Del Method O2 Flow Rate 04/12/24 11:50 36.4 C L 73 16 160/69 H 96 Nasal Cannula 3 04/12/24 07:57 36.5 C 96 H 16 154/74 H 97 Room Air Laboratory Results 04/09/24 19:25 04/12/24 10:24 PG Care Time/CCT Total # of Minutes Spent Total Time Spent with Patient: Total time spent is greater than 50% in coordination of care (as documented) at patient's floor/unit and/or counseling patient: Coding Level of Care Code 13659 SUB INP/OBS CARE 3/50MIN Diagnoses Acute respiratory failure with hypoxemia J96.01 Nausea and vomiting R11.2 Pericardial effusion I31.39 PND (post-nasal drip) R09.82 CVA (cerebral vascular accident) I63.9 Atrial fibrillation I48.91 Abdominal pain R10.9
[2024-04-13] MEDS: ZOLPIDEM TARTRATE 5 MG TAB PO PRN (01:01)
[2024-04-13 08:34] LABS: BUN Creatinine Ratio 13.4 (10-20); Calcium 8.7 mg/dl (8.6-10.3); Creatinine Clr Calc Pharmacy 48.9 ml/min; Est GFR (African American) 91.6 ml/min; Potassium 3.2 mmol/L (3.5-5.1)
[2024-04-13 11:29] LABS: Basophils # (auto) 0.01 K/uL (0.00-0.20); Basophils % (auto) 0.2 %; Hematocrit (blood only) 39.7 % (37.0-47.0); Immature Granulocytes # (auto) 0.01 K/uL (0.01-0.20); Immature Granulocytes % (auto) 0.2 %; Lymphocytes # (auto) 0.72 K/uL (1.20-3.40); Lymphocytes % (auto) 12.3 %; Mean Corpuscular Hemoglobin 28.3 pg (25.0-34.0); Mean Corpuscular Hgb Conc 32.7 g/dL (32.0-36.0); Mean Corpuscular Volume 86.3 fL (80.0-100.0); Monocytes # (auto) 0.06 K/uL (0.11-0.59); Neutrophils # (auto) 5.04 K/uL (1.40-6.50); Neutrophils % (auto) 86.3 %; Platelet Count 142 K/uL (130-400); RDW Coefficient of Variation 14.8 % (11.5-14.5); RDW Standard Deviation 46.7 fL (36.4-46.3); White Blood Count 5.84 K/ul (4.8-10.8)
[2024-04-13] MEDS: POTASSIUM CHLORIDE / WTR 10 MEQ/100 ML PLCT IV SCH (11:45)
--- NOTE | 2024-04-13 15:29 | Hospitalist Progress Note ---
Date of Service April 13, 2024 Assessment & Plan (1) Acute respiratory failure with hypoxemia: Plan: She may have aspirated prior to admission due to vomiting. Admission chest x- ray negative for CHF or overt pneumonia. Chest CTA negative for PE on admission. She is now on room air. Resolved (2) Nausea and vomiting: Plan: Present on admission. Now resolved. Abdomen CT scan negative for obstruction on admission. She does still have a gallbladder although she told me earlier she has previously had gallbladder removed. HIDA with ejection fraction will be delayed until tomorrow, April 14, since she ate breakfast this morning. (3) Pericardial effusion: Plan: Mild to moderate pericardial effusion noted on CT Chest. No evidence of tamponade. No need for intervention at this time. Appreciate cardiology consultation and recommendations (4) PND (post-nasal drip): Plan: Most likely viral. Symptomatic care. (5) CVA (cerebral vascular accident): Plan: Right posterior lateral area of encephalomalacia seen on head CT scan. This appears to be chronic. No new focal neurological deficits. No intervention necessary at this time (6) Atrial fibrillation: Plan: Chronic. Telemetry. Rate controlled. Diltiazem CD dosage and hydralazine have been down titrated on April 11 (7) Abdominal pain: Plan: Mainly right upper quadrant area. No rebound or guarding. Associated with protracted nausea and vomiting. No rebound or guarding. No hepatosplenomegaly. No obstruction seen on CT scan. Will need to rule out chronic cholecystitis with HIDA scan with ejection fraction Plan [facility] discharge [facility] [place] Admission and Anticipated Discharge Date Admission Date: April 09, 2024 Subjective Much improved today. She is alert and oriented and eating and talkative. Son is at the bedside. I wonder if she had a viral illness causing this acute hospital stay. Potassium is slightly low at 3.2. Continue IV and oral replacement. HIDA scan will be delayed until tomorrow since she ate breakfast this morning. Continue diltiazem and hydralazine for blood pressure and heart rate control. [facility]ful discharge to [facility] [place] [facility] Review of Systems 2 Review of Systems: Constitutionalno fever or chills ENTno blurred vision, no double vision, no epistaxis, no sore throat Respiratoryno cough, no wheezing, no shortness of breath Cardiacno palpitations, no chest pain, no syncope GInausea with intermittent vomiting have resolved. No hematemesis. No melena, hematochezia GUno urinary retention, no urinary incontinence, no dysuria, no hematuria Musculoskeletalno joint pain, no muscle tenderness Skinno bruising, no rashes, no pruritus Neurono isolated weakness, no paresthesia. She does have generalized weakness Psychno depression, no anxiety Physical Exam 2 Physical Exam: General-alert and oriented x3, no fever, no chills HEENT-head atraumatic and normocephalic, pupils equal and reactive to light, extraocular muscles intact Neck-no lymphadenopathy or thyromegaly, trachea midline Chest-clear to auscultation. No rales, wheezing or rhonchi Cardiac-regular rate and rhythm, normal S1 and S2 Abdomen-normal bowel sounds, no hepatosplenomegaly. Diffuse mild tenderness has nearly resolved now. No masses. No rebound or guarding Extremities-no cyanosis, clubbing, or edema Neuro-cranial nerves II through XII intact, motor and sensory function within normal limits, strength symmetrical with generalized weakness, no focal deficits Psych-normal affect Results & Data Results & Data Vital Signs (Past 12 Hours) Vital Signs Temp Pulse Pulse Resp BP BP Pulse Ox 04/13/24 11:23 36.8 C 83 18 174/65 H 97 04/13/24 08:00 94 H 04/13/24 07:04 36.8 C 109 H 16 190/68 H 97 04/13/24 03:46 36.5 C 90 18 169/69 H 95 O2 Del Method O2 Flow Rate 04/13/24 11:23 Nasal Cannula 2 04/13/24 08:00 04/13/24 07:04 Nasal Cannula 2 04/13/24 03:46 Nasal Cannula 2 Laboratory Results 04/13/24 06:49 04/13/24 06:43 PG Care Time/CCT Total # of Minutes Spent Total Time Spent with Patient: Total time spent is greater than 50% in coordination of care (as documented) at patient's floor/unit and/or counseling patient: Coding Level of Care Code 32912 SUB INP/OBS CARE 3/50MIN Diagnoses Acute respiratory failure with hypoxemia J96.01 Nausea and vomiting R11.2 Pericardial effusion I31.39 PND (post-nasal drip) R09.82 CVA (cerebral vascular accident) I63.9 Atrial fibrillation I48.91 Abdominal pain R10.9
[2024-04-13] MEDS ORDERED: FUROSEMIDE 20 MG TAB PO PRN (23:45)
[2024-04-14] MEDS: METOPROLOL TARTRATE 1 MG/ML VIAL IV STA (08:17)
[2024-04-14 08:40] LABS: Hematocrit (blood only) 38.1 % (37.0-47.0); Hemoglobin 12.9 g/dl (12.0-16.0); Mean Corpuscular Hemoglobin 28.5 pg (25.0-34.0); Mean Corpuscular Hgb Conc 33.9 g/dL (32.0-36.0); Mean Corpuscular Volume 84.3 fL (80.0-100.0); Mean Platelet Volume 12.7 fL (9.4-12.4); Platelet Count 159 K/uL (130-400); RDW Coefficient of Variation 14.9 % (11.5-14.5); RDW Standard Deviation 45.9 fL (36.4-46.3); Red Blood Count 4.52 M/uL (4.20-5.40); White Blood Count 13.95 K/ul (4.8-10.8)
[2024-04-14] MEDS: ALBUT/IPRATROP 3MG/0.5MG NEB 3 ML VIAL NEB STA (08:52)
[2024-04-14 09:10] LABS: Basophils # (auto) 0.01 K/uL (0.00-0.20); Basophils % (auto) 0.1 %; Immature Granulocytes # (auto) 0.12 K/uL (0.01-0.20); Immature Granulocytes % (auto) 0.9 %; Lymphocytes # (auto) 0.79 K/uL (1.20-3.40); Lymphocytes % (auto) 5.7 %; Monocytes # (auto) 0.29 K/uL (0.11-0.59); Monocytes % (auto) 2.1 %; Neutrophils # (auto) 12.74 K/uL (1.40-6.50); Neutrophils % (auto) 91.2 %
--- NOTE | 2024-04-14 09:16 | XRay Report ---
SINGLE VIEW CHEST CLINICAL HISTORY: Dyspnea. Aspiration FINDINGS: An AP, portable, upright chest radiograph is compared to chest x-ray and chest CT dated 03/23. A single lead cardiac pacemaker is unchanged in position. The heart is enlarged noting athero sclerotic calcification of the thoracic aorta. There is pulmonary vascular congestion. Chronic inters titial thickening is similar to previous. There are trace pleural effusions with dependent scarring/a telectasis. No pneumothorax is seen. The skeletal structures are osteopenic. The bony thorax is gross ly intact. IMPRESSION: 1. Cardiomegaly and cardiac pacemaker with pulmonary vascular congestion. 2. Small pleural effusions. ACT 112: Negative or not required by law. Electronically signed by: Abimael Gordon M.D. 04/14/2024 9:15 AM
[2024-04-14 09:19] LABS: BUN Creatinine Ratio 24.6 (10-20); Calcium 9.1 mg/dl (8.6-10.3); Creatinine Clr Calc Pharmacy 50.4 ml/min; Est GFR (African American) 92.5 ml/min; Est GFR (Non-African American) 79.8 ml/min; Potassium 3.7 mmol/L (3.5-5.1)
--- NOTE | 2024-04-14 09:19 | Electrocardiogram Report ---
Test Reason : Blood Pressure : */* mmHG Vent. Rate : 136 BPM Atrial Rate : 125 BPM P-R Int : * ms QRS Dur : 88 ms QT Int : 330 ms P-R-T Axes : * 114 -74 degrees QTcB Int : 496 ms Atrial fibrillation with rapid ventricular response with premature ventricular or aberrantly conducte d complexes Left ventricular hypertrophy with repolarization abnormality T-wave inversion in Lateral leads , consider ischemia Abnormal ECG When compared with ECG of 09-Apr-2024 19:22, HR has increased by 41 bpm Otherwise no significant change Confirmed by Kanu Schwartz ([id number]) on 04/14/2024 9:19:16 AM Referred By: REFERRED SELF Confirmed By: Kanu Schwartz
[2024-04-14] MEDS ORDERED: AMPICILLIN SOD/SULBACTAM SOD 3 GM VIAL IV SCH (10:15)
[2024-04-14] MEDS: FUROSEMIDE 40 MG/4 ML VIAL IV ONE (10:41)
[2024-04-14 11:35] LABS: Troponin I High Sensitivity 10.9 pg/ml (0-14)
[2024-04-14] MEDS: hydrALAZINE HCL 25 MG TAB PO SCH (13:03)
[2024-04-14] MEDS: AMPICILLIN/SULBACTAM SOD 3,000 MG/100 ML BAG IV SCH (13:05)
--- NOTE | 2024-04-14 13:43 | Cardiology Consultation ---
Date of Consultation April 14, 2024 Assessment & Plan (1) Permanent atrial fibrillation: (2) Atrial fibrillation with rapid ventricular response: (3) Presence of permanent cardiac pacemaker: (4) Hypertension: (5) Pericardial effusion: Plan Etiology of her transient decompensation this morning is uncertain, there was some concern about aspiration but she seems to be doing well currently, possibly simply a prolonged paroxysmal of coughing. Development of rapid ventricular response and chest pain seems secondary to her distress rather than the cause of her distress. Her heart rate did not abruptly increase but rather rapidly responded to her general physiologic distress. Doubt major ischemia given multiple episodes of respiratory distress without substantial troponin elevation or routine anginal type symptoms. Regardless of etiology, she looks well currently and is asymptomatic. Given persistent significant hypertension, the risk that she could become tachycardic again if she is distressed, and the presence of a pacemaker to prevent any bradycardia, would recommend increasing her diltiazem dose from 180 mg daily to 240 mg daily. To even out the hemodynamic effect, would be reasonable to split the dose and administer diltiazem as 120 mg twice daily. She could receive 120 mg dose today (even though she had 240 mg this morning, since she is hypertensive currently). Since she is doing well, will sign off. However, if there is any change in her status please notify Dr. Hernandez, as she will be covering our practice over the weekend. 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 As an outpatient she is followed by Dr. Landaverde. PMH: February 2024 hospitalization - etiology of her respiratory insufficiency is unclear, she responded to BiPAP and did not require significant diuresis, pulmonary consultation felt she had no ongoing pulmonary issues. Echo at that time showed normal systolic function with a small pericardial effusion. Yesterday, she was admitted with malaise, PND, anorexia with vomiting and significant dyspnea. Chest x-ray and chest CT showed no pulmonary infiltrates but did suggest a "mild to moderate hypodense pericardial effusion". ECG showed atrial fibrillation with ventricular rate 95 bpm, there was T wave inversion in lateral leads suggesting possible ischemia, however troponin was normal at 12.3. Current hospitalization -presented with general malaise with prominent GI symptoms such as nausea, abdominal discomfort, and vomiting. Also dyspneic, but GI symptoms were more pronounced. Given her earlier pericardial effusion and ch est CT suggesting that it could now be moderate, she was reevaluated earlier during this admission with a repeat echo, the effusion was actually small and unchanged compared with a month ago (see 04/10/2024 cardiology consultation). She seemed to be steadily improving until around 8 AM this morning, when she developed paroxysmal coughing followed by right sided chest discomfort and tachypalpitations. Telemetry monitoring showed fairly rapid but not paroxysmal increase in ventricular response to her atrial fibrillation (maximum 150 bpm) lasting about 20 minutes before gradually returning to baseline. No further episodes of tachycardia since this morning. Her symptoms resolved and she notes that she currently feels "much better". At the time of my evaluation this afternoon, she felt well and denied any chest pain, abdominal pain, dyspnea, or palpitations. Allergies Allergy/AdvReac Type Severity Reaction Status Date / Time oxycodone AdvReac Intermediate HALLUCINATI Verified 04/09/24 21:06 ONS morphine AdvReac Unknown DELIRIUM Verified 04/09/24 21:06 Home Medications Medication Instructions Recorded Confirmed Type aspirin 325 mg tablet 325 mg PO DAILY@209905/06/18 04/09/24 History famotidine 40 mg tablet (Pepcid) 40 mg PO DAILY@209905/06/18 04/09/24 History levothyroxine 75 mcg tablet 75 mcg PO DAILY@99905/06/18 04/09/24 History (Synthroid) omeprazole 40 mg capsule,delayed 40 mg PO DAILY@99905/06/18 04/09/24 History release pregabalin 50 mg capsule (Lyrica) 100 mg PO DAILY@999,209905/06/18 04/09/24 History atorvastatin 20 mg tablet 20 mg PO DAILY@209911/16/18 04/09/24 History docusate sodium 100 mg tablet 200 mg PO BID 11/16/18 04/09/24 History sertraline 50 mg tablet 50 mg PO DAILY@2099 11/16/18 04/09/24 History donepezil 5 mg tablet 5 mg PO DAILY 02/09/22 04/09/24 History cranberry extract 500 mg tablet 1,000 mg PO DAILY 02/21/24 04/09/24 History ferrous sulfate 325 mg (65 mg 325 mg PO BID 02/21/24 04/09/24 History iron) tablet ibandronate 150 mg tablet 150 mg PO .MONTHLY 02/21/24 04/09/24 History diltiazem HCl 180 mg 180 mg PO DAILY #30 caps 02/28/24 04/09/24 Rx capsule,extended release 24 hr furosemide 20 mg tablet (Lasix) 20 mg PO DAILY PRN edema/swelling 02/28/24 04/09/24 Rx of legs #30 tabs magnesium oxide 400 mg PO DAILY #30 tabs 02/28/24 04/09/24 Rx melatonin 3 mg tablet 3 mg PO HS #30 tabs 02/28/24 04/09/24 Rx cyanocobalamin (vitamin B-12) 2,500 mcg PO DAILY 04/09/24 04/09/24 History 2,500 mcg sublingual tablet (Vitamin B-12) sennosides 8.6 mg tablet (senna) 8.6 mg PO BID PRN Constipation 04/09/24 04/09/24 History zolpidem 10 mg tablet 5 mg PO HS PRN Insomnia 04/09/24 04/09/24 History Patient History Medical History (Updated 04/14/24 @ 13:35 by Kanu Schwartz MD) Periorbital cellulitis of left eye Hyperlipidemia LDL goal <70 Thoracic back pain CVA (cerebral vascular accident) Epidural hematoma Weight loss, unintentional Tricuspid regurgitation Tachy-jazmine syndrome Pulmonary hypertension Dyslipidemia Cerebrovascular disease Benign hypertension Aortic regurgitation Anxiety disorder Headache Surgical History (Updated 04/14/24 @ 13:35 by Kanu Schwartz MD) H/O cervical spine surgery "cervical decompression with evacuation of cervical epidural hematoma 09/22/2012" S/P tonsillectomy H/O: hysterectomy History of bilateral tubal ligation History of appendectomy Family History Other Family history non-contributory Social History Smoking Status: Never smoker Do You Dip or Chew Tobacco: No; Hx Alcohol Use: No Hx Substance Use: No Preferred Language: Syrian Communication Ability: Effective Redye Hand Required: No Beliefs That Will Affect Care: None marital status: / Current Living Situation: Family Current Living Situation Comment: [facility] Other Information That Helps Us Care for You: No Feels Safe at Home: Yes Safety Concerns: Feels Safe At This Time Assistive Devices: Cane, Raised Toilet Seat and Walker Physical Exam Physical Exam: Appears comfortable currently. BP 186/44 mmHg. Pulse 81 bpm and irregular. Respirations 20 but unlabored. Skin: no ecchymoses or generalized lesions. HEENT: unremarkable. Neck: JVP at the clavicle at 90 degrees, no carotid bruits. Lungs: Decreased and tubular breath sounds bilaterally but generally clear. No obvious wheezing or accessory muscle use. Cardiac: irregular rhythm, normal S1-2, no murmur. Abdomen: benign. Extremities: no edema, feet with varicosities, pulses intact. Neurologic: normal affect and conversation, nonfocal. Results & Data Laboratory Results Troponin 10.9. Labs from today with normal electrolytes, BUN 16, creatinine 0.65. Diagnostic Findings - ECG this morning showed atrial fibrillation with ventricular to 136 bpm, occasional aberrancy versus PVC, LVH with repolarization abnormalities and T wave inversions/ST depression laterally. Compared with 04/09/2024 ECG, heart rate increased by 41 bpm, otherwise no significant change. - Chest x-ray this morning is read as "pulmonary vascular congestion" but appears to be unchanged from the 04/09/2024 study which was read as "no acute process". To my eye, there is chronically increased vasculature but no evidence of pulmonary edema. PG Care Time/CCT Total # of Minutes Spent Total Time Spent with Patient: Total time spent is greater than 50% in coordination of care (as documented) at patient's floor/unit and/or counseling patient: Coding Level of Care Code 16531 IN/OBS CONSULT LVL 4,60M Diagnoses Permanent atrial fibrillation I48.21 Atrial fibrillation with rapid ventricular response I48.91 Presence of permanent cardiac pacemaker Z95.0 Primary hypertension I10 Hypertension type: primary hypertension Pericardial effusion I31.39 (4) Hypertension Hypertension type: primary hypertension Qualified Code(s): I10 - Essential (primary) hypertension
--- NOTE | 2024-04-14 14:15 | Hospitalist Progress Note ---
Date of Service April 14, 2024 Assessment & Plan (1) Acute respiratory failure with hypoxemia: Plan: She may have aspirated prior to admission due to vomiting. She appears to have aspirated again this morning, April 14. Repeat portable chest x-ray today, April 14, reveals some evidence of pulmonary vascular congestion and right lower lobe infiltrate. She is now on intravenous Unasyn and she received a dose of parenteral Lasix. She was seen by speech therapy and a video swallow was completed. Diet was adjusted. Chest CTA negative for PE on admission. (2) Aspiration into lower respiratory tract: Plan: Appears to have occurred this morning, April 14, causing acute respiratory difficulty. She was seen by speech therapy and video swallow was performed. Diet has been adjusted. (3) Nausea and vomiting: Plan: Present on admission. Now resolved. Abdomen CT scan negative for obstruction on admission. She does still have a gallbladder although she told me earlier she has previously had gallbladder removed. HIDA with ejection fraction unfortunately was canceled today, April 14, due to her respiratory difficulties. Will not pursue this any further at this time (4) Pericardial effusion: Plan: Mild to moderate pericardial effusion noted on CT Chest. No evidence of tamponade. No need for intervention at this time. Appreciate cardiology consultation and recommendations (5) PND (post-nasal drip): Plan: Most likely viral. Symptomatic care. (6) CVA (cerebral vascular accident): Plan: Right posterior lateral area of encephalomalacia seen on head CT scan. This appears to be chronic. No new focal neurological deficits. No intervention necessary at this time (7) Atrial fibrillation: Plan: Chronic. Telemetry. Rate controlled. Diltiazem CD dosage and hydralazine have been down titrated on April 11 (8) Abdominal pain: Plan: Mainly right upper quadrant area. No rebound or guarding. Associated with protracted nausea and vomiting. No rebound or guarding. No hepatosplenomegaly. No obstruction seen on CT scan. Will need to rule out chronic cholecystitis with HIDA scan with ejection fraction at a later date Plan Hopeful discharge to tomorrow, April 15 Admission and Anticipated Discharge Date Admission Date: April 09, 2024 Subjective She had an episode of shortness of breath and chest pain this morning. She appears to have aspirated. She was seen by speech therapy who completed a video swallow and adjusted her diet. HIDA scan unfortunately was canceled. Hydralazine has been uptitrated today, April 14. Hopefully she will be able to go to tomorrow, April 15. Review of Systems 2 Review of Systems: Constitutionalno fever or chills ENTno blurred vision, no double vision, no epistaxis, no sore throat Respiratorynonproductive cough. Shortness of breath Cardiacno palpitations, no syncope. Chest discomfort with episode of shortness of breath and coughing this morning GInausea with intermittent vomiting have resolved. No hematemesis. No melena, hematochezia GUno urinary retention, no urinary incontinence, no dysuria, no hematuria Musculoskeletalno joint pain, no muscle tenderness Skinno bruising, no rashes, no pruritus Neurono isolated weakness, no paresthesia. She does have generalized weakness Psychno depression, no anxiety Physical Exam 2 Physical Exam: General-alert and oriented x3, no fever, no chills HEENT-head atraumatic and normocephalic, pupils equal and reactive to light, extraocular muscles intact Neck-no lymphadenopathy or thyromegaly, trachea midline Chest-scattered bilateral rhonchi. No inspiratory rales. No wheezing Cardiac-tachycardic irregular rate and rhythm at the time of my examination this morning. Normal S1 and S2 Abdomen-normal bowel sounds, no hepatosplenomegaly. Diffuse mild tenderness has nearly resolved now. No masses. No rebound or guarding Extremities-no cyanosis, clubbing, or edema Neuro-cranial nerves II through XII intact, motor and sensory function within normal limits, strength symmetrical with generalized weakness, no focal deficits Psych-normal affect Results & Data Results & Data Vital Signs (Past 12 Hours) Vital Signs Temp Pulse Pulse Resp BP BP BP 04/14/24 10:04 81 196/44 H 04/14/24 09:00 81 20 196/44 H 04/14/24 08:55 88 24 04/14/24 08:30 04/14/24 08:29 77 22 201/96 H 04/14/24 08:23 140 H 24 239/107 H 04/14/24 08:17 140 H 239/107 H 04/14/24 07:19 36.7 C 90 18 205/73 H 196/71 H 04/14/24 03:00 36.7 C 84 17 168/77 H Pulse Ox O2 Del Method O2 Flow Rate 04/14/24 10:04 04/14/24 09:00 97 Nasal Cannula 2 04/14/24 08:55 96 Nasal Cannula 2 04/14/24 08:30 93 Nasal Cannula 2 04/14/24 08:29 87 L Room Air 04/14/24 08:23 92 Room Air 04/14/24 08:17 04/14/24 07:19 92 Room Air 04/14/24 03:00 94 Nasal Cannula Laboratory Results 04/14/24 08:09 04/14/24 08:09 PG Care Time/CCT Total # of Minutes Spent Total Time Spent with Patient: Total time spent is greater than 50% in coordination of care (as documented) at patient's floor/unit and/or counseling patient: Coding Level of Care Code 83247 SUB INP/OBS CARE 3/50MIN Diagnoses Acute respiratory failure with hypoxemia J96.01 Aspiration into lower respiratory tract T17.800A Nausea and vomiting R11.2 Pericardial effusion I31.39 PND (post-nasal drip) R09.82 CVA (cerebral vascular accident) I63.9 Atrial fibrillation I48.91 Abdominal pain R10.9
[2024-04-14] MEDS: NITROGLYCERIN 2% OINTMENT 30GM TUBE EXT SCH (16:02)
--- NOTE | 2024-04-14 16:15 | Fluoroscopy Report ---
VIDEO SWALLOW STUDY CLINICAL HISTORY: Aspiration. COMPARISON STUDY: No priors. Fluoroscopy time: 1.51 minutes. Ka,r: 5.15 mGy FINDINGS: Fluoroscopic guidance is provided to the Department of speech pathology in performing a vid eo swallow study. The patient consumed barium-impregnated pudding, cracker with paste, nectar-thick l iquids, and thin barium while the swallowing mechanism was observed in real-time. There is pharyngeal penetration seen with thin barium. No aspiration was seen with any of the sampled textures. There i s a prominent cricopharyngeal bar, with retention of contrast in the pharynx. The barium pill was swa llowed without difficulty. Esophageal retention is noted. IMPRESSION: 1. Pharyngeal penetration was seen with thin barium. 2. No aspiration was seen with any of the sampled textures. 3. See dedicated speech pathology report for detailed findings and recommendations. Dictated: 04/14/2024 3:00 PM Transcribed: 04/14/2024 4:09 PM Davon [id number] [email or web address] Electronically signed by: Abimael Gordon M.D. 04/14/2024 4:14 PM
[2024-04-14] MEDS: dilTIAZem HCL 120 MG CAPCR PO SCH (20:34)
[2024-04-14] MEDS: hydrALAZINE HCL 20 MG/ML VIAL IV PRN (21:41)
--- NOTE | 2024-04-14 22:47 | Communication Note ---
Date of Service: April 14, 2024 Code Purple Patient complaining of new onset chest pain and severe headache. Nursing noting new asymmetric pinpoint pupil. Patient noting significant pain in left lateral neck. Vitals: SBP > 200 x 2, DBP > 100 x 2 (rising despite PRN antihypertensives) Gen: Anxious, diaphoretic HEENT: Left pupil pinpoint and non-reactive to light, Right pupil pinpoint but slight constriction to light. Heart: Irregularly irregular, regular rate Lungs: Non-labored, equal air entry, CTAB Neuro: Strength 5/5, sensation intact, no FND Assessment/Plan 1. STAT CT Head w/o Con obtained, no evidence of hemorrhagic stroke. No FND on exam. 2. Troponin wnl. EKG w/ RAD. CXR improved from prior. 3. Acute hypokalemia, likely 2/2 diuretics and steroids treated w/ IV repletion of Mg and K 4. Complete symptom resolution w/in the hour, vitals stabilized. Resident Activity Tracking Resident Involvement: Resident Care Provided Care Provided: Adult Hospital Medicine
[2024-04-14 23:25] LABS: Hematocrit (blood only) 39.4 % (37.0-47.0); Hemoglobin 13.4 g/dl (12.0-16.0); Mean Corpuscular Hemoglobin 28.4 pg (25.0-34.0); Mean Corpuscular Volume 83.5 fL (80.0-100.0); Mean Platelet Volume 12.2 fL (9.4-12.4); Platelet Count 152 K/uL (130-400); RDW Standard Deviation 45.5 fL (36.4-46.3); Red Blood Count 4.72 M/uL (4.20-5.40); White Blood Count 15.09 K/ul (4.8-10.8)
[2024-04-14 23:55] LABS: Basophils # (auto) 0.01 K/uL (0.00-0.20); Basophils % (auto) 0.1 %; Immature Granulocytes # (auto) 0.16 K/uL (0.01-0.20); Immature Granulocytes % (auto) 1.1 %; Lymphocytes # (auto) 0.47 K/uL (1.20-3.40); Lymphocytes % (auto) 3.1 %; Monocytes # (auto) 0.42 K/uL (0.11-0.59); Monocytes % (auto) 2.8 %; Neutrophils # (auto) 14.03 K/uL (1.40-6.50); Neutrophils % (auto) 92.9 %; Toxic Vacuolation 1+
[2024-04-15 00:05] LABS: Alanine Aminotransferase 9 U/L (7-52); Albumin Globulin Ratio 1.8 (0.9-2); Albumin Level 3.9 gm/dl (3.4-5.0); Alkaline Phosphatase 63 U/L (34-104); Anion Gap 9 (3-11); Aspartate Aminotransferase 13 U/L (13-39); BUN Creatinine Ratio 25.4 (10-20); Bilirubin,Total 0.5 mg/dl (0.2-1.0); Blood Urea Nitrogen 18 mg/dl (6-23); C Reactive Protein < 0.50 mg/dl (0-0.5); Calcium 8.7 mg/dl (8.6-10.3); Carbon Dioxide 28 mmol/L (21-32); Chloride 105 mmol/L (98-107); Creatinine Clr Calc Pharmacy 46.2 ml/min; Est GFR (African American) 88.8 ml/min; Est GFR (Non-African American) 76.6 ml/min; Globulin 2.2 gm/dl (2.5-4.0); Glucose 150 mg/dl (70-99(Fasting)); Potassium 2.8 mmol/L (3.5-5.1); Sodium 142 mmol/L (136-145); Total Protein 6.1 gm/dl (6.0-8.3)
[2024-04-15 00:26] LABS: Troponin I High Sensitivity 18.5 pg/ml (0-14)
[2024-04-15] MEDS: MAGNESIUM SULFATE / D5W 1 GM/100 ML BAG IV ONE (01:00)
[2024-04-15] MEDS: POTASSIUM CHLORIDE / WTR 10 MEQ/100 ML PLCT IV SCH (02:37)
--- NOTE | 2024-04-15 03:46 | CT Scan Report ---
Exam(s): CT HEAD Without Contrast EXAM: CT Head Without Intravenous Contrast CLINICAL HISTORY: Reason for exam: anisocoria/headache. TECHNIQUE: Axial computed tomography images of the head/brain without intravenous contrast. CTDI is 35.72 mGy and DLP is 625.8 mGy-cm. Automated exposure control was utilized for the study. A dose lowering technique was utilized adhering to the principles of ALARA. COMPARISON: 04/09/2010 40 FINDINGS: Brain: Chronic left thalamic lacunar infarct. Chronic right posterior temporoparietal infarct. Chronic left parietal lobe infarct. No hemorrhage. No significant white matter disease. Ventricles: Unremarkable. No ventriculomegaly. Bones/joints: Unremarkable. No acute fracture. Soft tissues: Unremarkable. Sinuses: Unremarkable as visualized. No acute sinusitis. Mastoid air cells: Unremarkable as visualized. No mastoid effusion. IMPRESSION: No acute findings in the head/brain. Electronically signed by: Isma Maria MD 04/15/24 03:45 AM
[2024-04-15] MEDS: ACETAMINOPHEN SUSP 325 MG/10.15 ML UDC PO PRN (06:36)
[2024-04-15 06:58] LABS: Basophils # (auto) 0.01 K/uL (0.00-0.20); Basophils % (auto) 0.1 %; Hemoglobin 13.4 g/dl (12.0-16.0); Immature Granulocytes # (auto) 0.15 K/uL (0.01-0.20); Immature Granulocytes % (auto) 1.1 %; Lymphocytes # (auto) 0.57 K/uL (1.20-3.40); Lymphocytes % (auto) 4.1 %; Mean Corpuscular Hemoglobin 28.3 pg (25.0-34.0); Mean Corpuscular Hgb Conc 34.4 g/dL (32.0-36.0); Mean Corpuscular Volume 82.5 fL (80.0-100.0); Mean Platelet Volume 12.8 fL (9.4-12.4); Monocytes # (auto) 0.74 K/uL (0.11-0.59); Monocytes % (auto) 5.3 %; Neutrophils % (auto) 89.4 %; Platelet Count 161 K/uL (130-400); RDW Coefficient of Variation 14.7 % (11.5-14.5); RDW Standard Deviation 44.5 fL (36.4-46.3); Red Blood Count 4.73 M/uL (4.20-5.40); White Blood Count 13.97 K/ul (4.8-10.8)
[2024-04-15 07:22] LABS: BUN Creatinine Ratio 28.8 (10-20); Calcium 8.7 mg/dl (8.6-10.3); Creatinine Clr Calc Pharmacy 55.6 ml/min; Est GFR (African American) 95.5 ml/min; Est GFR (Non-African American) 82.4 ml/min
--- NOTE | 2024-04-15 07:36 | XRay Report ---
SINGLE VIEW CHEST CLINICAL HISTORY: Aspiration FINDINGS: An AP, portable, upright chest radiograph is compared to study dated 04/14/2024 and correlat ed with chest CT dated 04/09/2024. A single lead cardiac pacemaker is unchanged in position. The heart is enlarged noting atherosclerotic calcification of the thoracic aorta. Mild pulmonary vascular tejal estion persist. Chronic interstitial thickening is similar to previous. There are small pleural effus ions, left larger than right with dependent consolidation. No pneumothorax is seen. The skeletal stru ctures are osteopenic. The bony thorax is grossly intact. IMPRESSION: 1. Cardiomegaly and cardiac pacemaker with mild pulmonary vascular congestion. 2. Small pleural effusions with dependent consolidation. ACT 112: Negative or not required by law. Electronically signed by: Abimael Gordon M.D. 04/15/2024 7:35 AM
--- NOTE | 2024-04-15 08:22 | XRay Report ---
SINGLE VIEW CHEST CLINICAL HISTORY: Atypical chest pain FINDINGS: An AP, portable, upright chest radiograph is compared to study performed earlier the same d ay 04/14/2024 and correlated with chest CT dated 04/09/2024. A single lead cardiac pacemaker is unchang ed in position. The heart is enlarged noting atherosclerotic calcification of the thoracic aorta. Mil d pulmonary vascular congestion persists. Chronic interstitial thickening is similar to previous. The re are small pleural effusions, left larger than right with dependent consolidation. No pneumothorax is seen. The skeletal structures are osteopenic. The bony thorax is grossly intact. IMPRESSION: 1. Cardiomegaly and cardiac pacemaker with mild pulmonary vascular congestion. 2. Small pleural effusions with dependent consolidation. ACT 112: Negative or not required by law. Electronically signed by: Abimael Gordon M.D. 04/15/2024 8:20 AM
[2024-04-15] MEDS: POTASSIUM CHLORIDE 20 MEQ/15 ML UDC PO SCH (10:17)
[2024-04-15] MEDS: METOPROLOL TARTRATE 25 MG TAB PO SCH (10:41)
--- NOTE | 2024-04-15 12:04 | Hospitalist Progress Note ---
Date of Service April 15, 2024 Assessment & Plan (1) Acute respiratory failure with hypoxemia: Plan: She may have aspirated prior to admission due to vomiting. She appears to have aspirated again the morning of April 14. She was seen by speech therapy and a video swallow was completed. Diet was adjusted. Chest CTA negative for PE on admission. (2) Aspiration into lower respiratory tract: Plan: Appears to have occurred the morning of April 14, causing acute respiratory difficulty. Now resolved. She was seen by speech therapy and video swallow was performed. Diet has been adjusted. (3) Nausea and vomiting: Plan: Present on admission. Now resolved. Abdomen CT scan negative for obstruction on admission. She does still have a gallbladder although she told me earlier she has previously had gallbladder removed. HIDA with ejection fraction unfortunately was canceled today, April 14, due to her respiratory difficulties. Will not pursue this any further at this time (4) Pericardial effusion: Plan: Mild to moderate pericardial effusion noted on CT Chest. No evidence of tamponade. No need for intervention at this time. Appreciate cardiology consultation and recommendations (5) PND (post-nasal drip): Plan: Most likely viral. Symptomatic care. (6) CVA (cerebral vascular accident): Plan: Right posterior lateral area of encephalomalacia seen on head CT scan. This appears to be chronic. No new focal neurological deficits. No intervention necessary at this time (7) Atrial fibrillation: Plan: Chronic. Telemetry. Ventricular rate is somewhat fast. Metoprolol has been started. Continue Diltiazem CD and hydralazine for blood pressure control. (8) Abdominal pain: Plan: Mainly right upper quadrant area. No rebound or guarding. Associated with protracted nausea and vomiting. No rebound or guarding. No hepatosplenomegaly. No obstruction seen on CT scan. Will need to rule out chronic cholecystitis with HIDA scan with ejection fraction at a later date (9) Hypokalemia: Plan: Unable to tolerate intravenous potassium riders due to pain. She is tolerating the potassium elixir however despite the bad taste. Serial labs Plan Hopeful discharge to [facility] on April 17 Admission and Anticipated Discharge Date Admission Date: April 09, 2024 Subjective Alert and oriented. She could not tolerate the potassium rider. Oral potassium elixir ordered and she is tolerating it well despite the bad taste. Metoprolol low-dose added twice daily for better heart rate and blood pressure control. Review of Systems 2 Review of Systems: Constitutionalno fever or chills ENTno blurred vision, no double vision, no epistaxis, no sore throat Respiratorynonproductive cough. Shortness of breath Cardiacno palpitations, no syncope. Chest discomfort with episode of shortness of breath and coughing this morning GInausea with intermittent vomiting have resolved. No hematemesis. No melena, hematochezia GUno urinary retention, no urinary incontinence, no dysuria, no hematuria Musculoskeletalno joint pain, no muscle tenderness Skinno bruising, no rashes, no pruritus Neurono isolated weakness, no paresthesia. She does have generalized weakness Psychno depression, no anxiety Physical Exam 2 Physical Exam: General-alert and oriented x3, no fever, no chills HEENT-head atraumatic and normocephalic, pupils equal and reactive to light, extraocular muscles intact Neck-no lymphadenopathy or thyromegaly, trachea midline Chest-scattered bilateral rhonchi. No inspiratory rales. No wheezing Cardiac-tachycardic irregular rate and rhythm at the time of my examination this morning. Normal S1 and S2 Abdomen-normal bowel sounds, no hepatosplenomegaly. Diffuse mild tenderness has nearly resolved now. No masses. No rebound or guarding Extremities-no cyanosis, clubbing, or edema Neuro-cranial nerves II through XII intact, motor and sensory function within normal limits, strength symmetrical with generalized weakness, no focal deficits Psych-normal affect Results & Data Results & Data Vital Signs (Past 12 Hours) Vital Signs Temp Pulse Pulse Resp BP BP Pulse Ox 04/15/24 10:34 36.6 C 110 H 18 169/69 H 97 04/15/24 07:07 36.6 C 110 H 17 196/86 H 97 04/15/24 04:16 107 H 191/75 H 04/15/24 03:19 36.6 C 119 H 16 177/94 H 94 04/15/24 02:10 102 H 149/77 H 04/15/24 02:00 101 H 148/71 H 04/15/24 01:30 97 H 179/77 H 04/15/24 01:00 100 H 04/15/24 00:40 36.7 C 104 H 18 194/98 H 97 04/15/24 00:03 103 H O2 Del Method O2 Flow Rate 04/15/24 10:34 Room Air 04/15/24 07:07 Nasal Cannula 2 04/15/24 04:16 04/15/24 03:19 Nasal Cannula 1.0 04/15/24 02:10 04/15/24 02:00 04/15/24 01:30 04/15/24 01:00 04/15/24 00:40 Nasal Cannula 2 04/15/24 00:03 Laboratory Results 04/15/24 06:15 04/15/24 06:15 PG Care Time/CCT Total # of Minutes Spent Total Time Spent with Patient: Total time spent is greater than 50% in coordination of care (as documented) at patient's floor/unit and/or counseling patient: Coding Level of Care Code 85992 SUB INP/OBS CARE 3/50MIN Diagnoses Acute respiratory failure with hypoxemia J96.01 Aspiration into lower respiratory tract T17.800A Nausea and vomiting R11.2 Pericardial effusion I31.39 PND (post-nasal drip) R09.82 CVA (cerebral vascular accident) I63.9 Atrial fibrillation I48.91 Abdominal pain R10.9 Hypokalemia E87.6
[2024-04-16 07:21] LABS: Basophils # (auto) 0.01 K/uL (0.00-0.20); Basophils % (auto) 0.1 %; Hematocrit (blood only) 40.5 % (37.0-47.0); Hemoglobin 13.5 g/dl (12.0-16.0); Immature Granulocytes # (auto) 0.12 K/uL (0.01-0.20); Lymphocytes # (auto) 0.69 K/uL (1.20-3.40); Mean Corpuscular Hemoglobin 28.7 pg (25.0-34.0); Mean Corpuscular Hgb Conc 33.3 g/dL (32.0-36.0); Mean Platelet Volume 12.8 fL (9.4-12.4); Monocytes # (auto) 0.64 K/uL (0.11-0.59); Monocytes % (auto) 5.6 %; Neutrophils # (auto) 10.05 K/uL (1.40-6.50); Neutrophils % (auto) 87.3 %; Platelet Count 155 K/uL (130-400); RDW Coefficient of Variation 15.2 % (11.5-14.5); RDW Standard Deviation 47.6 fL (36.4-46.3); Red Blood Count 4.71 M/uL (4.20-5.40); White Blood Count 11.51 K/ul (4.8-10.8)
[2024-04-16 07:47] LABS: BUN Creatinine Ratio 36.8 (10-20); Calcium 8.6 mg/dl (8.6-10.3); Creatinine Clr Calc Pharmacy 48.2 ml/min; Est GFR (African American) 91.2 ml/min; Est GFR (Non-African American) 78.6 ml/min; Potassium 3.8 mmol/L (3.5-5.1)
[2024-04-16] MEDS: hydrALAZINE TAB 50 MG TAB PO SCH (13:54)
[2024-04-16] MEDS: predniSONE 10 MG TABLET PO SCH (13:54)
--- NOTE | 2024-04-16 14:34 | Hospitalist Progress Note ---
Date of Service April 16, 2024 Assessment & Plan (1) Acute respiratory failure with hypoxemia: Plan: She may have aspirated prior to admission due to vomiting. She appears to have aspirated again the morning of April 14. She was seen by speech therapy and a video swallow was completed. Diet was adjusted. Chest CTA negative for PE on admission. Solu-Medrol switched to oral prednisone today, April 16. Hopefully this can be weaned off quickly (2) Aspiration into lower respiratory tract: Plan: Appears to have occurred the morning of April 14, causing acute respiratory difficulty. Now resolved. She was seen by speech therapy and video swallow was performed. Diet has been adjusted. (3) Nausea and vomiting: Plan: Present on admission. Now resolved. Abdomen CT scan negative for obstruction on admission. She does still have a gallbladder although she told me earlier she has previously had gallbladder removed. HIDA with ejection fraction unfortunately was canceled today, April 14, due to her respiratory difficulties. Will not pursue this any further at this time (4) Pericardial effusion: Plan: Mild to moderate pericardial effusion noted on CT Chest. No evidence of tamponade. No need for intervention at this time. Appreciate cardiology consultation and recommendations (5) PND (post-nasal drip): Plan: Most likely viral. Symptomatic care. (6) CVA (cerebral vascular accident): Plan: Right posterior lateral area of encephalomalacia seen on head CT scan. This appears to be chronic. No new focal neurological deficits. No intervention necessary at this time (7) Atrial fibrillation: Plan: Chronic. Telemetry. Ventricular rate is somewhat fast. Metoprolol has been started. Continue Diltiazem CD and hydralazine for blood pressure control. (8) Abdominal pain: Plan: Mainly right upper quadrant area. No rebound or guarding. Associated with protracted nausea and vomiting. No rebound or guarding. No hepatosplenomegaly. No obstruction seen on CT scan. Will need to rule out chronic cholecystitis with HIDA scan with ejection fraction at a later date (9) Hypokalemia: Plan: Unable to tolerate intravenous potassium riders due to pain. She is tolerating the potassium elixir however despite the bad taste. Potassium has been corrected. Serial labs (10) Essential hypertension: Plan: Metoprolol and hydralazine uptitrated today, April 16, for better blood pressure and heart rate control. Plan Hopeful discharge to [facility] on April 17 Admission and Anticipated Discharge Date Admission Date: April 09, 2024 Subjective Alert and oriented. No distress. Metoprolol and hydralazine dosages uptitrated again today, April 16, for better heart rate and blood pressure control. Solu- Medrol switched to oral dosing which will eventually be tapered off. Will repeat portable chest x-ray again tomorrow, April 17. Hopefully she can go to [facility] tomorrow April 17 Review of Systems 2 Review of Systems: Constitutionalno fever or chills ENTno blurred vision, no double vision, no epistaxis, no sore throat Respiratorynonproductive cough. Shortness of breath Cardiacno palpitations, no syncope. Chest discomfort with episode of shortness of breath and coughing this morning GInausea with intermittent vomiting have resolved. No hematemesis. No melena, hematochezia GUno urinary retention, no urinary incontinence, no dysuria, no hematuria Musculoskeletalno joint pain, no muscle tenderness Skinno bruising, no rashes, no pruritus Neurono isolated weakness, no paresthesia. She does have generalized weakness Psychno depression, no anxiety Physical Exam 2 Physical Exam: General-alert and oriented x3, no fever, no chills HEENT-head atraumatic and normocephalic, pupils equal and reactive to light, extraocular muscles intact Neck-no lymphadenopathy or thyromegaly, trachea midline Chest-scattered bilateral rhonchi. No inspiratory rales. No wheezing Cardiac-tachycardic irregular rate and rhythm at the time of my examination this morning. Normal S1 and S2 Abdomen-normal bowel sounds, no hepatosplenomegaly. Diffuse mild tenderness has nearly resolved now. No masses. No rebound or guarding Extremities-no cyanosis, clubbing, or edema Neuro-cranial nerves II through XII intact, motor and sensory function within normal limits, strength symmetrical with generalized weakness, no focal deficits Psych-normal affect Results & Data Results & Data Vital Signs (Past 12 Hours) Vital Signs Temp Pulse Resp BP BP Pulse Ox O2 Del Method 04/16/24 11:49 36.6 C 80 18 156/78 H 97 Nasal Cannula 04/16/24 07:47 Nasal Cannula 04/16/24 07:21 36.5 C 97 H 18 171/78 H 95 Nasal Cannula 04/16/24 03:02 36.5 C 86 18 195/81 H 96 Nasal Cannula O2 Flow Rate 04/16/24 11:49 2 04/16/24 07:47 2 04/16/24 07:21 2 04/16/24 03:02 2 Laboratory Results 04/16/24 06:03 04/16/24 06:03 PG Care Time/CCT Total # of Minutes Spent Total Time Spent with Patient: Total time spent is greater than 50% in coordination of care (as documented) at patient's floor/unit and/or counseling patient: Coding Level of Care Code 38263 SUB INP/OBS CARE 3/50MIN Diagnoses Acute respiratory failure with hypoxemia J96.01 Aspiration into lower respiratory tract T17.800A Nausea and vomiting R11.2 Pericardial effusion I31.39 PND (post-nasal drip) R09.82 CVA (cerebral vascular accident) I63.9 Atrial fibrillation I48.91 Abdominal pain R10.9 Hypokalemia E87.6 Essential hypertension I10
[2024-04-16] MEDS: LORazepam 0.5 MG TAB PO STA (17:42)
[2024-04-16] MEDS: METOPROLOL TARTRATE 50 MG TAB PO SCH (21:27)
[2024-04-17 06:35] LABS: Basophils # (auto) 0.02 K/uL (0.00-0.20); Basophils % (auto) 0.2 %; Hemoglobin 12.9 g/dl (12.0-16.0); Immature Granulocytes # (auto) 0.17 K/uL (0.01-0.20); Immature Granulocytes % (auto) 1.8 %; Lymphocytes # (auto) 0.62 K/uL (1.20-3.40); Lymphocytes % (auto) 6.5 %; Mean Corpuscular Hemoglobin 28.3 pg (25.0-34.0); Mean Corpuscular Hgb Conc 33.1 g/dL (32.0-36.0); Mean Corpuscular Volume 85.5 fL (80.0-100.0); Mean Platelet Volume 12.8 fL (9.4-12.4); Monocytes % (auto) 9.5 %; Neutrophils # (auto) 7.81 K/uL (1.40-6.50); Platelet Count 145 K/uL (130-400); RDW Coefficient of Variation 15.2 % (11.5-14.5); RDW Standard Deviation 47.7 fL (36.4-46.3); Red Blood Count 4.56 M/uL (4.20-5.40); White Blood Count 9.52 K/ul (4.8-10.8)
[2024-04-17 06:40] LABS: BUN Creatinine Ratio 41.9 (10-20); Calcium 8.3 mg/dl (8.6-10.3); Creatinine Clr Calc Pharmacy 52.9 ml/min; Est GFR (Non-African American) 81.1 ml/min; Potassium 3.8 mmol/L (3.5-5.1)
--- NOTE | 2024-04-17 07:14 | XRay Report ---
SINGLE VIEW CHEST CLINICAL HISTORY: Pneumonia. FINDINGS: An AP, portable, semierect chest radiograph is compared to study dated 04/15/2024 and correl ated with chest CT dated 04/09/2024. A single lead cardiac pacemaker is unchanged in position. The hea rt is enlarged noting atherosclerotic calcification of the thoracic aorta. Mild pulmonary vascular co ngestion persist. Chronic interstitial thickening is similar to previous. There are small pleural eff usions, left larger than right with left basilar consolidation. No pneumothorax is seen. The skeletal structures are osteopenic. The bony thorax is grossly intact. IMPRESSION: 1. Cardiomegaly and cardiac pacemaker with mild pulmonary vascular congestion. 2. Small pleural effusions with left basilar consolidation persist. ACT 112: Negative or not required by law. Electronically signed by: Abimael Gordon M.D. 04/17/2024 7:13 AM
--- NOTE | 2024-04-17 12:58 | Hospitalist Progress Note ---
Date of Service April 17, 2024 Assessment & Plan (1) Acute respiratory failure with hypoxemia: Plan: -She may have aspirated prior to admission due to vomiting. -She appeared to have aspirated again the morning of April 14. -She was seen by speech therapy and a video swallow was completed. Diet was adjusted. -Chest CTA negative for PE on admission. -Covering empirically on abx with Ampicillin-sulbactam- will soon plan to switch to po abx to complete 7 day course -Solu-Medrol switched to oral prednisone on April 16- currently on 10mg TID- plan to wean by 10 mg q 3 days -Wean O2 as permitted -Per patient has required O2 in the past on prior hospitalizations, but did not require [facility] (2) Aspiration into lower respiratory tract: Plan: -Appears to have occurred the morning of April 14, causing acute respiratory difficulty. -Improving -She was seen by speech therapy and video swallow was performed. Diet has been adjusted. -Abx: Ampicillin/Sulbactam- plan to shortly change to po alternative (3) Nausea and vomiting: Plan: -Present on admission. Now resolved. -Abdomen CT scan negative for obstruction on admission. -She does still have a gallbladder although she told prior hospitalist that she had previously had gallbladder removed. HIDA with ejection fraction unfortunately was canceled earlier on admission due to her respiratory difficulties. -Discussed the need for outpatient HIDA -No longer with complaints at present (4) Pericardial effusion: Plan: -Mild to moderate pericardial effusion noted on CT Chest. No evidence of tamponade. -Cardiology consulted: Recommendations appreciated. No intervention recommended. Cardizem increased to 120mg BID per cardiology (5) PND (post-nasal drip): Plan: -Most likely viral. Symptomatic care. (6) Essential hypertension: Plan: -BP control variable -Hydralazine and metoprolol were increased on 04/16- still with hypertensive readings- will further increase hydralazine and monitor trend closely -Monitor BP and HR closely- titrate accordingly. (7) Atrial fibrillation: Plan: -Chronic. -Monitor on Telemetry. -Ventricular rate is somewhat fast. Metoprolol has been started- will further titrate accordingly. Continue Diltiazem CD- dosing now 120mg BID per cardiology. -Hydralazine for blood pressure control. (8) Abdominal pain: Plan: -Mainly right upper quadrant area. -Improved -Previously associated with protracted nausea and vomiting. No rebound or guarding. No hepatosplenomegaly. No obstruction seen on CT scan. Will need to rule out chronic cholecystitis with HIDA scan with ejection fraction at a later date- discussed at length need for this as an outpatient (9) Hypokalemia: Plan: -Now improving -Unable to tolerate intravenous potassium riders due to pain. She is tolerating the potassium elixir however despite the bad taste. Potassium has been corrected. -Continue to monitor serial labs Plan Hopeful discharge to [facility] soon Admission and Anticipated Discharge Date Admission Date: April 09, 2024 Subjective Patient seen and evaluated bedside Patient is currently in NAD BP slowly improving with increased dosing of Metoprolol and Hydralazine- will require further titation however Tolerating po prednisone- discussed with patient need for weaning CXR showing stability Plan for [facility] shortly Review of Systems Review of Systems: As per HPI Physical Exam Physical Exam: General-alert and oriented x3, no fever, no chills HEENT-head atraumatic and normocephalic, extraocular muscles intact Neck-no lymphadenopathy or thyromegaly, trachea midline Chest-scattered bilateral rhonchi. No inspiratory rales. No wheezing Cardiac-irregular rate and rhythm, normal heart rate. Normal S1 and S2 Abdomen-normal bowel sounds, no hepatosplenomegaly. Diffuse mild tenderness has nearly resolved now. No masses. No rebound or guarding Extremities-no cyanosis, clubbing, or edema Neuro-cranial nerves II through XII intact, motor and sensory function within normal limits, strength symmetrical with generalized weakness, no focal deficits Psych-normal affect Results & Data Results & Data Vital Signs (Past 12 Hours) Vital Signs Temp Pulse Pulse Resp BP BP Pulse Ox 04/17/24 10:56 36.4 C L 83 18 153/71 H 95 04/17/24 08:00 105 H 04/17/24 08:00 04/17/24 07:39 36.5 C 106 H 18 169/75 H 94 04/17/24 03:00 36.8 C 103 H 18 180/73 H 95 O2 Del Method O2 Flow Rate 04/17/24 10:56 Nasal Cannula 2 04/17/24 08:00 04/17/24 08:00 Nasal Cannula 2 04/17/24 07:39 Nasal Cannula 2 04/17/24 03:00 Nasal Cannula 2 PG Care Time/CCT Total # of Minutes Spent Total Time Spent with Patient: Total time spent is greater than 50% in coordination of care (as documented) at patient's floor/unit and/or counseling patient: Coding Level of Care Code 44863 SUB INP/OBS CARE 2/35MIN Diagnoses Acute respiratory failure with hypoxemia J96.01 Aspiration into lower respiratory tract T17.800A Nausea and vomiting R11.2 Pericardial effusion I31.39 PND (post-nasal drip) R09.82 Essential hypertension I10 Atrial fibrillation I48.91 Abdominal pain R10.9 Hypokalemia E87.6
[2024-04-17] MEDS: hydrALAZINE HCL 25 MG TAB PO SCH (14:04)
[2024-04-18 08:20] LABS: Basophils # (auto) 0.03 K/uL (0.00-0.20); Basophils % (auto) 0.3 %; Eosinophils # (auto) 0.01 K/uL (0.00-0.50); Eosinophils % (auto) 0.1 %; Hematocrit (blood only) 42.6 % (37.0-47.0); Hemoglobin 14.4 g/dl (12.0-16.0); Immature Granulocytes # (auto) 0.25 K/uL (0.01-0.20); Immature Granulocytes % (auto) 2.3 %; Lymphocytes # (auto) 1.08 K/uL (1.20-3.40); Lymphocytes % (auto) 9.8 %; Mean Corpuscular Hemoglobin 28.3 pg (25.0-34.0); Mean Corpuscular Hgb Conc 33.8 g/dL (32.0-36.0); Mean Corpuscular Volume 83.7 fL (80.0-100.0); Mean Platelet Volume 12.8 fL (9.4-12.4); Monocytes # (auto) 1.31 K/uL (0.11-0.59); Monocytes % (auto) 11.8 %; Neutrophils # (auto) 8.38 K/uL (1.40-6.50); Neutrophils % (auto) 75.7 %; Platelet Count 145 K/uL (130-400); RDW Coefficient of Variation 14.7 % (11.5-14.5); RDW Standard Deviation 44.9 fL (36.4-46.3); Red Blood Count 5.09 M/uL (4.20-5.40); White Blood Count 11.06 K/ul (4.8-10.8)
[2024-04-18 08:38] LABS: BUN Creatinine Ratio 37.7 (10-20); Calcium 8.6 mg/dl (8.6-10.3); Creatinine Clr Calc Pharmacy 47.5 ml/min; Est GFR (African American) 90.7 ml/min; Est GFR (Non-African American) 78.3 ml/min; Potassium 3.5 mmol/L (3.5-5.1)
[2024-04-18] MEDS ORDERED: ONDANSETRON INJ 2 MG/ML 2 ML VIAL IV PRN (08:56)
[2024-04-18] MEDS ORDERED: METOPROLOL TARTRATE 100 MG TAB PO SCH (09:00)
[2024-04-18] MEDS: ONDANSETRON INJ 2 MG/ML 2 ML VIAL ONE (09:05)
[2024-04-18] MEDS: bisacodyL 10 MG SUPP PR STA (10:16)
--- NOTE | 2024-04-18 10:31 | XRay Report ---
KUB CLINICAL HISTORY: assess for obstruction COMPARISON STUDY: CT of the abdomen and pelvis April 09, 2024. FINDINGS: A pacer lead is partially imaged. The bowel gas pattern is normal. Incidental note is made of contrast within the colon and rectum from recent modified barium swallow. IMPRESSION: No evidence for a bowel obstruction. ACT 112: Negative or not required by law. Electronically signed by: Joseluis Sanchez M.D. 04/18/2024 10:30 AM
[2024-04-18] MEDS: POLYETHYLENE (MIRALAX) 17 GM PACK PO SCH (11:58)
[2024-04-18] MEDS: METOPROLOL TARTRATE 25 MG TAB PO SCH (11:58)
--- NOTE | 2024-04-18 13:45 | Hospitalist Progress Note ---
Date of Service April 18, 2024 Assessment & Plan (1) Acute respiratory failure with hypoxemia: Plan: -She may have aspirated prior to admission due to vomiting. -She appeared to have aspirated again the morning of April 14. -She was seen by speech therapy and a video swallow was completed. Diet was adjusted. -Chest CTA negative for PE on admission. -Covering empirically on abx with Ampicillin-sulbactam- will soon plan to switch to po abx to complete 7 day course- likely to switch in the AM -Solu-Medrol switched to oral prednisone on April 16- currently on 10mg TID- plan to wean by 10 mg q 3 days- will switch to 10 mg BID in the AM -Wean O2 as permitted -Per patient has required O2 in the past on prior hospitalizations, but did not require alf (2) Aspiration into lower respiratory tract: Plan: -Appears to have occurred the morning of April 14, causing acute respiratory difficulty. -Improving -She was seen by speech therapy and video swallow was performed. Diet has been adjusted. -Abx: Ampicillin/Sulbactam- plan to shortly change to po alternative (3) Atrial fibrillation: Plan: -Chronic. -Monitor on Telemetry. -Ventricular rate is somewhat fast. Metoprolol has been started- up-titrating dosing with caution given patient is on calcium channel shira. Continue Diltiazem CD- dosing now 120mg BID per cardiology. Will discuss with cardiology this concurrent dose with a beta shira as well. -Cardiology has previously evaluated- will discuss with cardiology other options for rate control. -Anticoagulation contraindicated per cardiology (4) Nausea and vomiting: Plan: -Present on admission. Now resolved. -Abdomen CT scan negative for obstruction on admission. -She does still have a gallbladder although she told prior hospitalist that she had previously had gallbladder removed. HIDA with ejection fraction un fortunately was canceled earlier on admission due to her respiratory difficulties. -Discussed the need for outpatient HIDA -No longer with complaints at present (5) Pericardial effusion: Plan: -Mild to moderate pericardial effusion noted on CT Chest. No evidence of tamponade. -Cardiology consulted: Recommendations appreciated. No intervention recommended. Cardizem increased to 120mg BID per cardiology (6) PND (post-nasal drip): Plan: -Most likely viral. Symptomatic care. (7) Essential hypertension: Plan: -BP control variable -Hydralazine and metoprolol were increased on 04/16- still with hypertensive readings -Will start ARB for better BP control -Monitor BP and HR closely- titrate accordingly. (8) Abdominal pain: Plan: -Mainly right upper quadrant area. -Improved -Symptoms more so of constipation per patient- trailing suppository -KUB without obstruction -Passing gas -Previously associated with protracted nausea and vomiting. No rebound or guarding. No hepatosplenomegaly. No obstruction seen on CT scan. Will need to rule out chronic cholecystitis with HIDA scan with ejection fraction at a later date- discussed at length need for this as an outpatient Addendum: Patient noted to have 2 bowel movements (9) Hypokalemia: Plan: -Now improving -Unable to tolerate intravenous potassium riders due to pain. She is tolerating the potassium elixir however despite the bad taste. Potassium has been corrected. -Continue repletion -Continue to monitor serial labs Plan Called and updated daughter Plan for discharge to [facility] soon Admission and Anticipated Discharge Date Admission Date: April 09, 2024 Subjective Patient seen and evaluated bedside Patient reporting constipation this AM, otherwise denies acute complaints Noted on tele- slightly elevated HR- typically <110 however Denies chest pain, palpitations, SOB, fevers chills nausea or vomiting Review of Systems Review of Systems: As indicated in HPI Physical Exam Physical Exam: General-alert and oriented x3, no fever, no chills HEENT-head atraumatic and normocephalic, extraocular muscles intact Neck-no lymphadenopathy or thyromegaly, trachea midline Chest-scattered bilateral rhonchi. No inspiratory rales. No wheezing Cardiac-irregular rate and rhythm, slightly tachycardic heart rate. Normal S1 and S2 Abdomen-normal bowel sounds, no hepatosplenomegaly. Diffuse mild tenderness has nearly resolved now. No masses. No rebound or guarding Extremities-no cyanosis, clubbing, or edema Neuro-cranial nerves II through XII intact, motor and sensory function within normal limits, strength symmetrical with generalized weakness, no focal deficits Psych-normal affect Results & Data Results & Data Vital Signs (Past 12 Hours) Vital Signs Temp Pulse Pulse Resp BP BP Pulse Ox 04/18/24 11:20 36.5 C 108 H 18 174/80 H 90 04/18/24 08:00 107 H 04/18/24 08:00 04/18/24 07:36 36.4 C L 130 H 18 172/88 H 92 04/18/24 06:56 36.4 C L 99 H 18 157/84 H 97 04/18/24 04:35 130/77 04/18/24 03:10 36.4 C L 92 H 18 163/78 H 94 O2 Del Method 04/18/24 11:20 Room Air 04/18/24 08:00 04/18/24 08:00 Room Air 04/18/24 07:36 Room Air 04/18/24 06:56 Room Air 04/18/24 04:35 04/18/24 03:10 Room Air PG Care Time/CCT Total # of Minutes Spent Total Time Spent with Patient: Total time spent is greater than 50% in coordination of care (as documented) at patient's floor/unit and/or counseling patient: Coding Level of Care Code 20939 SUB INP/OBS CARE 2/35MIN Diagnoses Acute respiratory failure with hypoxemia J96.01 Aspiration into lower respiratory tract T17.800A Atrial fibrillation I48.91 Nausea and vomiting R11.2 Pericardial effusion I31.39 PND (post-nasal drip) R09.82 Essential hypertension I10 Abdominal pain R10.9 Hypokalemia E87.6
[2024-04-18] MEDS: POTASSIUM CHLORIDE 20 MEQ/15 ML UDC PO ONE (14:35)
[2024-04-18] MEDS: METOPROLOL TARTRATE 100 MG TAB PO SCH (21:36)
[2024-04-18] MEDS: hydrALAZINE TAB 50 MG TAB PO SCH (21:37)
[2024-04-19] MEDS: SENNA 8.6 MG TAB PO PRN (06:40)
[2024-04-19 07:39] LABS: Hemoglobin 14.4 g/dl (12.0-16.0); Mean Corpuscular Hemoglobin 28.5 pg (25.0-34.0); Mean Corpuscular Hgb Conc 34.3 g/dL (32.0-36.0); Mean Corpuscular Volume 83.2 fL (80.0-100.0); Mean Platelet Volume 12.4 fL (9.4-12.4); Platelet Count 170 K/uL (130-400); RDW Coefficient of Variation 14.9 % (11.5-14.5); RDW Standard Deviation 45.1 fL (36.4-46.3); Red Blood Count 5.05 M/uL (4.20-5.40); White Blood Count 12.08 K/ul (4.8-10.8)
[2024-04-19 07:40] LABS: Basophils # (auto) 0.02 K/uL (0.00-0.20); Basophils % (auto) 0.2 %; Eosinophils # (auto) 0.01 K/uL (0.00-0.50); Eosinophils % (auto) 0.1 %; Immature Granulocytes # (auto) 0.28 K/uL (0.01-0.20); Immature Granulocytes % (auto) 2.3 %; Lymphocytes # (auto) 1.28 K/uL (1.20-3.40); Lymphocytes % (auto) 10.6 %; Monocytes # (auto) 1.56 K/uL (0.11-0.59); Monocytes % (auto) 12.9 %; Neutrophils # (auto) 8.93 K/uL (1.40-6.50); Neutrophils % (auto) 73.9 %
[2024-04-19 07:41] LABS: BUN Creatinine Ratio 33.3 (10-20); Calcium 8.4 mg/dl (8.6-10.3); Creatinine Clr Calc Pharmacy 43.7 ml/min; Est GFR (African American) 83.1 ml/min; Est GFR (Non-African American) 71.7 ml/min; Potassium 3.8 mmol/L (3.5-5.1)
[2024-04-19] MEDS: ALUMINUM/MAGNESIUM SUSP 30 ML UDC PO PRN (08:10)
[2024-04-19] MEDS: ACETAMINOPHEN 1,000 MG/100 ML VIAL IV STA (09:10)
[2024-04-19] MEDS: LOSARTAN POTASSIUM 25 MG TAB PO SCH (10:56)
--- NOTE | 2024-04-19 13:26 | Cardiology Progress Note ---
Date of Service April 19, 2024 Assessment & Plan (1) Permanent atrial fibrillation: (2) Presence of permanent cardiac pacemaker: (3) Pericardial effusion: (4) Atypical chest pain: (5) Acute respiratory failure with hypoxemia: (6) Hypertension: Plan ASSESSMENT/PLAN: 1. Permanent atrial fibrillation: Was tachycardic. With further adjustment of metoprolol and ongoing diltiazem, heart rate is now acceptable. Heart rate likely exacerbated by her recurrent respiratory issues. Continue metoprolol and diltiazem at current dosing for now. Anticoagulation therapy has been documented as contraindicated given cervical epidural hematoma requiring surgical evacuation, and she was not interested in further invasive procedures such as Watchman device. 2. Hypertension: Blood pressure has mostly been elevated but in general improved over the past couple of days. Can further titrate ARB as necessary. 3. Pericardial effusion: Small and stable on repeat echo. 4. Pacemaker: Followed by electrophysiology. 5. Atypical chest pain: Reproducible/tender on exam. Right sided. Not suggestive of ischemic heart disease. 6. Acute respiratory failure with hypoxemia: As per primary hospitalist service. [place] to be due to recurrent aspiration. She appears euvolemic. 7. Disposition: Cardiology will sign off at this time. Please call with any further questions or concerns. Patient care communicated with primary hospitalist, Dr. Walsh. Admission and Anticipated Discharge Date Admission Date: April 09, 2024 Subjective I was asked by primary hospitalist to reevaluate given tachycardia. Patient was seen earlier today with her son and daughter at the bedside. She had an episode of right sided chest discomfort this morning that persisted for over 5 hours, resolving after IV Tylenol per nursing staff. The pain was reproducible on palpation. This is not a recurrent issue. She was weaned off of supplemental oxygen yesterday but back on supplemental oxygen today. There has been concern for aspiration and her diet has been adjusted. She denies syncope, near syncope, edema, or bleeding. She has occasional palpitations described as a thumping sensation while laying in bed, but none currently. Physical Exam Physical Exam: Gen.: No acute distress. Alert. HEENT: Anicteric sclera. Neck: No JVD. Cardiac: Irregularly irregular. Normal heart rate. Normal S1-S2. No murmurs, rubs, or gallops. Pulmonary: Clear to auscultation bilaterally without wheezes, rales, or rhonchi. Abdomen: Soft, nontender, nondistended, with normoactive bowel sounds. No bruits noted. Extremities: 2+ radial pulses bilaterally. 1+ dorsalis pedis pulses bilaterally. No edema or cyanosis. Chest: Tender right chest, reproducing her chest pain described from this morning. Results & Data Vital Signs (Past 12 Hours) Vital Signs Temp Pulse Pulse Resp BP BP Pulse Ox 04/19/24 11:30 36.4 C L 95 H 18 161/79 H 98 04/19/24 08:00 92 H 04/19/24 08:00 04/19/24 07:54 84 22 173/76 H 96 04/19/24 07:26 36.6 C 91 H 18 168/85 H 93 04/19/24 02:43 36.5 C 88 18 139/60 92 O2 Del Method O2 Flow Rate 04/19/24 11:30 Nasal Cannula 2 04/19/24 08:00 04/19/24 08:00 Nasal Cannula 2 04/19/24 07:54 Nasal Cannula 2 04/19/24 07:26 Room Air 04/19/24 02:43 Room Air Laboratory Results Laboratory Results - last 24 hr 04/19/24 06:43 WBC 12.08 H RBC 5.05 Hgb 14.4 Hct 42.0 MCV 83.2 MCH 28.5 MCHC 34.3 RDW Std Deviation 45.1 RDW Coeff of Alfredo 14.9 H Plt Count 170 MPV 12.4 Immature Gran % (Auto) 2.3 Neut % (Auto) 73.9 Lymph % (Auto) 10.6 [place] % (Auto) 12.9 Eos % (Auto) 0.1 Baso % (Auto) 0.2 Neut # (Auto) 8.93 H Lymph # (Auto) 1.28 [place] # (Auto) 1.56 H Eos # (Auto) 0.01 Baso # (Auto) 0.02 Immature Gran # (Auto) 0.28 H Sodium 139 Potassium 3.8 Chloride 103 Carbon Dioxide 31 Anion Gap 5 BUN 25 H Creatinine 0.75 Est Cr Clr Drug Dosing 43.7 Est GFR ( Amer) 83.1 Est GFR (Non-Af Amer) 71.7 BUN/Creatinine Ratio 33.3 H Glucose 104 H Calcium 8.4 L Diagnostic Findings Telemetry personally reviewed: Atrial fibrillation with improved heart rate compared to previous days. Occasional PVCs. ECG personally reviewed 04/19/2024: Atrial fibrillation 86 bpm with occasional ventricular paced complex. Nonspecific T wave abnormality. Hospitalist note reviewed from 04/18/2024. Echo 02/22/2024: Normal LV size, wall motion, systolic function. EF 60-65%. Sclerotic aortic valve with mild AI. Normal RVSP. Small pericardial effusion. Limited echo 04/10/2024: Small pericardial effusion, stable compared to 02/22/2024. Labs reviewed from 04/19/2024 and notable for normal potassium, stable renal function, normal hemoglobin. Medications Administered Current Inpatient Medications Acetaminophen (Acetaminophen Susp 325 Mg/10.15 Ml Udc) 650 mg PO Q6H PRN PRN Reason: Mild-Mod Pain (Scale 1-6) Stop: 05/15/24 05:04 Last Admin: 04/15/24 06:36 Dose: 650 mg Al Hydrox/Mg Hydrox/Simethicone (Aluminum/Magnesium Susp 30 Ml Udc) 30 ml PO Q6H PRN PRN Reason: Heartburn Stop: 05/19/24 07:56 Last Admin: 04/19/24 08:10 Dose: 30 ml Aspirin (Aspirin 325 Mg Ectab) 325 mg PO DAILY@2100 [facility] Stop: 05/10/24 20:59 Last Admin: 04/18/24 21:40 Dose: 325 mg Atorvastatin Calcium (Atorvastatin 20 Mg Tab) 20 mg PO DAILY@2100 [facility] Stop: 05/10/24 20:59 Last Admin: 04/18/24 21:39 Dose: 20 mg Diltiazem HCl (Diltiazem Hcl 120 Mg Capcr) 120 mg PO BID [facility] Stop: 05/14/24 20:59 Last Admin: 04/19/24 10:56 Dose: 120 mg Docusate Sodium (Docusate Sodium 100 Mg Cap) 200 mg PO BID [facility] Stop: 05/10/24 08:59 Last Admin: 04/19/24 11:01 Dose: 200 mg Donepezil HCl (Donepezil Hcl 5 Mg Tab) 5 mg PO DAILY [facility] Stop: 05/10/24 08:59 Last Admin: 04/19/24 10:56 Dose: 5 mg Enoxaparin Sodium (Enoxaparin Inj 30 Mg/0.3 Ml Syr) 30 mg SQ QAM [facility] Stop: 05/10/24 08:59 Last Admin: 04/19/24 10:57 Dose: 30 mg Fluticasone Propionate (Fluticasone Propionate Na Spr 16 Gm Btl) 2 sprays NA BID [facility] Stop: 05/09/24 23:37 Last Admin: 04/19/24 10:57 Dose: 2 sprays Guaifenesin (Guaifenesin 600 Mg Tabcr) 1,200 mg PO Q12 [facility] Stop: 05/10/24 08:59 Last Admin: 04/19/24 10:56 Dose: 1,200 mg Hydralazine HCl (Hydralazine Hcl 20 Mg/Ml Vial) 10 mg IV Q2H PRN PRN Reason: SBP > 180 or DBP > 110 Stop: 05/10/24 10:06 Last Admin: 04/17/24 02:55 Dose: 10 mg Hydralazine HCl (Hydralazine Tab 50 Mg Tab) 50 mg PO TID [facility] Stop: 05/18/24 13:59 Last Admin: 04/19/24 10:56 Dose: 50 mg Promethazine HCl (Phenergan) 12.5 mg in 50.5 mls @ 202 mls/hr IV Q6H PRN PRN Reason: Nausea And Vomiting Stop: 05/10/24 09:08 Last Infusion: 04/12/24 10:23 Dose: Infused Pantoprazole Sodium 40 mg/ (Syringe) 10 mls @ 5 mls/min IV BID [facility] Stop: 05/10/24 20:59 Last Admin: 04/19/24 09:11 Dose: 5 mls/min Ampicillin Sodium/Sulbactam Sodium (Unasyn) 3,000 mg in 100 mls @ 200 mls/hr IV Q6H [facility]; Protocol Stop: 04/21/24 10:44 Last Infusion: 04/19/24 06:36 Dose: Infused Levothyroxine Sodium (Levothyroxine Sodium 75 Mcg Tablet) 75 mcg PO DAILY@1000 [facility] Stop: 05/10/24 09:59 Last Admin: 04/19/24 10:56 Dose: 75 mcg Losartan Potassium (Losartan Potassium 25 Mg Tab) 25 mg PO QAM [facility] Stop: 05/19/24 08:59 Last Admin: 04/19/24 10:56 Dose: 25 mg Melatonin (Melatonin 3 Mg Tab) 3 mg PO HS [facility] Stop: 05/10/24 20:59 Last Admin: 04/18/24 23:34 Dose: 3 mg Metoprolol Tartrate (Metoprolol Tartrate 100 Mg Tab) 100 mg PO BID [facility] Stop: 05/18/24 20:59 Last Admin: 04/19/24 10:56 Dose: 100 mg Ondansetron HCl (Ondansetron Inj 2 Mg/Ml 2 Ml Vial) 4 mg IV Q6H PRN PRN Reason: Nausea And Vomiting Stop: 05/18/24 08:55 Polyethylene Glycol (Polyethylene (Miralax) 17 Gm Pack) 17 gm PO DAILY [facility] Stop: 05/18/24 08:59 Last Admin: 04/19/24 10:57 Dose: 17 gm Potassium Chloride (Potassium Chloride 20 Meq/15 Ml Udc) 20 meq PO QAM [facility] Stop: 05/11/24 10:09 Last Admin: 04/19/24 10:57 Dose: 20 meq Prednisone (Prednisone 10 Mg Tablet) 10 mg PO TID [facility] Stop: 05/16/24 13:59 Last Admin: 04/19/24 10:56 Dose: 10 mg Pregabalin (Pregabalin 100 Mg Cap) 100 mg PO DAILY@1000,2100 [facility] Stop: 05/10/24 09:59 Last Admin: 04/19/24 11:01 Dose: 100 mg Sennosides (Senna 8.6 Mg Tab) 8.6 mg PO BID PRN PRN Reason: Constipation Stop: 05/09/24 23:37 Last Admin: 04/19/24 10:56 Dose: 8.6 mg Sertraline HCl (Sertraline Hcl 50 Mg Tablet) 50 mg PO DAILY@2100 [facility] Stop: 05/10/24 20:59 Last Admin: 04/18/24 21:50 Dose: 50 mg Sucralfate (Sucralfate 1 Gm Tab) 1 gm PO ACHS [facility] Stop: 05/10/24 07:29 Last Admin: 04/19/24 10:56 Dose: 1 gm Zolpidem Tartrate (Zolpidem Tartrate 5 Mg Tab) 5 mg PO HS PRN PRN Reason: Insomnia Stop: 05/09/24 23:56 Last Admin: 04/15/24 20:57 Dose: 5 mg PG Care Time/CCT Total # of Minutes Spent Total Time Spent with Patient: Total time spent is greater than 50% in coordination of care (as documented) at patient's floor/unit and/or counseling patient: Coding Level of Care Code 36501 SUB INP/OBS CARE 50MIN Diagnoses Permanent atrial fibrillation I48.21 Presence of permanent cardiac pacemaker Z95.0 Pericardial effusion I31.39 Atypical chest pain R07.89 Acute respiratory failure with hypoxemia J96.01 Primary hypertension I10 Hypertension type: primary hypertension (6) Hypertension Hypertension type: primary hypertension Qualified Code(s): I10 - Essential (primary) hypertension
--- NOTE | 2024-04-19 15:41 | Electrocardiogram Report ---
Test Reason : Blood Pressure : */* mmHG Vent. Rate : 97 BPM Atrial Rate : 86 BPM P-R Int : * ms QRS Dur : 90 ms QT Int : 368 ms P-R-T Axes : * 123 263 degrees QTcB Int : 467 ms Poor data quality, interpretation may be adversely affected Atrial fibrillation Right axis deviation Moderate voltage criteria for LVH, may be normal variant Abnormal ECG When compared with ECG of 14-Apr-2024 08:17, there is no significant change Confirmed by Lilo Hernandez ([id number]) on 04/15/2024 2:07:14 PM Referred By: REFERRED SELF Confirmed By: Lilo Hernandez
--- NOTE | 2024-04-19 15:48 | Hospitalist Progress Note ---
Date of Service April 19, 2024 Assessment & Plan (1) Acute respiratory failure with hypoxemia: Plan: -She may have aspirated prior to admission due to vomiting. -She appeared to have aspirated again the morning of April 14. -She was seen by speech therapy and a video swallow was completed. Diet was adjusted. -Chest CTA negative for PE on admission. -Covering empirically on abx with Ampicillin-sulbactam- plan to switch to po Augmentin in the AM to complete a total of a 7 day course -Solu-Medrol switched to oral prednisone on April 16- weaning dosing- switched to 10 mg BID today- will plan to wean to 10 mg daily on April 22. -Wean O2 as permitted- was weaned partially off then noted a desaturation prompting O2 replacement- discussed with RN weaning. -Per patient has required O2 in the past on prior hospitalizations, but did not require long term care pharmacist (2) Aspiration into lower respiratory tract: Plan: -Appears to have occurred the morning of April 14, causing acute respiratory difficulty. -Improving -She was seen by speech therapy and video swallow was performed. Diet has been adjusted. -Abx: Ampicillin/Sulbactam- plan to change to Augmentin in the AM to complte course (3) Atrial fibrillation: Plan: -Chronic. -Monitor on Telemetry. -Noted tachycardic rate- increased Metoprolol dosing to 100 mg BID in addition to continuing Diltiazem CD- dosing now 120mg BID per cardiology. -HR much better controlled today -Caution given 2 AV ag agents -Cardiology evaluated- recommendations appreciated. -Anticoagulation contraindicated per cardiology (4) Pericardial effusion: Plan: -Mild to moderate pericardial effusion noted on CT Chest. No evidence of tamponade. -Cardiology consulted: Recommendations appreciated. No intervention recommended. Cardizem increased to 120mg BID per cardiology (5) PND (post-nasal drip): Plan: -Most likely viral. Symptomatic care. (6) Essential hypertension: Plan: -BP control variable -Hydralazine and metoprolol were increased on 04/16- still with hypertensive readings -Start ARB for better BP control- appears to be improving -Monitor BP closely- titrate accordingly. (7) Abdominal pain: Plan: -Mainly right upper quadrant area. -Improved- had multiple bowel movements on 04/18- symptoms subsequently improve -KUB without obstruction. No obstruction seen on CT scan. -Will need to rule out chronic cholecystitis with HIDA scan with ejection fraction at a later date- discussed at length need for this as an outpatient (8) Nausea and vomiting: Plan: -Present on admission. Now resolved. -Abdomen CT scan negative for obstruction on admission. -She does still have a gallbladder although she told prior hospitalist that she had previously had gallbladder removed. HIDA with ejection fraction unfortunately was canceled earlier on admission due to her respiratory difficulties. -Discussed the need for outpatient HIDA -No longer with complaints at present (9) Hypokalemia: Plan: -Now improved -Unable to tolerate intravenous potassium riders due to pain. She is tolerating the potassium elixir however despite the bad taste. Potassium has been corrected. -Continue repletion -Continue to monitor serial labs Plan Called and updated daughter over the phone 04/19/24 Plan for discharge to [facility] soon Admission and Anticipated Discharge Date Admission Date: April 09, 2024 Subjective Patient seen and evaluated bedside Patient's heart rate improving Noted multiple bowel movements yesterday Had atypical chest pain this AM- reproducible chest well pain. Now improving Review of Systems Review of Systems: As indicated in HPI Physical Exam Physical Exam: General-alert and oriented x3, no fever, no chills HEENT-head atraumatic and normocephalic, extraocular muscles intact Neck-no lymphadenopathy or thyromegaly, trachea midline Chest-scattered bilateral rhonchi. No inspiratory rales. No wheezing Cardiac-irregular rate and rhythm, slightly tachycardic heart rate. Normal S1 and S2 Abdomen-normal bowel sounds, no hepatosplenomegaly. Diffuse mild tenderness has nearly resolved now. No masses. No rebound or guarding Extremities-no cyanosis, clubbing, or edema Neuro-cranial nerves II through XII intact, motor and sensory function within normal limits, strength symmetrical with generalized weakness, no focal deficits Psych-normal affect Results & Data Results & Data Vital Signs (Past 12 Hours) Vital Signs Temp Pulse Pulse Resp BP BP Pulse Ox 04/19/24 15:25 36.4 C L 77 18 149/71 H 94 04/19/24 11:30 36.4 C L 95 H 18 161/79 H 98 04/19/24 08:00 92 H 04/19/24 08:00 04/19/24 07:54 84 22 173/76 H 96 04/19/24 07:26 36.6 C 91 H 18 168/85 H 93 O2 Del Method O2 Flow Rate 04/19/24 15:25 Nasal Cannula 2 04/19/24 11:30 Nasal Cannula 2 04/19/24 08:00 04/19/24 08:00 Nasal Cannula 2 04/19/24 07:54 Nasal Cannula 2 04/19/24 07:26 Room Air PG Care Time/CCT Total # of Minutes Spent Total Time Spent with Patient: Total time spent is greater than 50% in coordination of care (as documented) at patient's floor/unit and/or counseling patient: Coding Level of Care Code 03331 SUB INP/OBS CARE 2/35MIN Diagnoses Acute respiratory failure with hypoxemia J96.01 Aspiration into lower respiratory tract T17.800A Atrial fibrillation I48.91 Pericardial effusion I31.39 PND (post-nasal drip) R09.82 Essential hypertension I10 Abdominal pain R10.9 Nausea and vomiting R11.2 Hypokalemia E87.6
[2024-04-20 07:21] LABS: Basophils # (auto) 0.04 K/uL (0.00-0.20); Basophils % (auto) 0.3 %; Eosinophils # (auto) 0.03 K/uL (0.00-0.50); Eosinophils % (auto) 0.2 %; Hematocrit (blood only) 40.9 % (37.0-47.0); Hemoglobin 13.9 g/dl (12.0-16.0); Immature Granulocytes # (auto) 0.35 K/uL (0.01-0.20); Immature Granulocytes % (auto) 2.7 %; Lymphocytes # (auto) 1.71 K/uL (1.20-3.40); Lymphocytes % (auto) 13.4 %; Mean Corpuscular Hemoglobin 28.1 pg (25.0-34.0); Mean Corpuscular Volume 82.8 fL (80.0-100.0); Mean Platelet Volume 12.8 fL (9.4-12.4); Monocytes # (auto) 1.75 K/uL (0.11-0.59); Monocytes % (auto) 13.7 %; Neutrophils # (auto) 8.89 K/uL (1.40-6.50); Neutrophils % (auto) 69.7 %; Platelet Count 157 K/uL (130-400); RDW Coefficient of Variation 14.7 % (11.5-14.5); Red Blood Count 4.94 M/uL (4.20-5.40); White Blood Count 12.77 K/ul (4.8-10.8)
[2024-04-20 07:38] VITALS: TEMP 97.5
[2024-04-20 07:55] LABS: BUN Creatinine Ratio 30.3 (10-20); Calcium 8.2 mg/dl (8.6-10.3); Creatinine Clr Calc Pharmacy 49.7 ml/min; Est GFR (African American) 92.1 ml/min; Est GFR (Non-African American) 79.4 ml/min; Potassium 3.7 mmol/L (3.5-5.1)
[2024-04-20] MEDS: predniSONE 10 MG TABLET PO SCH (08:27)
[2024-04-20 11:40] VITALS: RESP 16; O2SAT 96
--- NOTE | 2024-04-20 12:40 | Discharge Summary ---
Discharge Summary Date of Service April 20, 2024 Principal Dx & Hospital Course #1 = Principal Diagnosis (1) Acute respiratory failure with hypoxemia: -She may have aspirated prior to admission due to vomiting. -She appeared to have aspirated again the morning of April 14. -She was seen by speech therapy and a video swallow was completed. Diet was adjusted-minced and moist and thin liquids, aspiration precautions -Chest CTA negative for PE on admission. -Covered empirically on abx with Ampicillin-sulbactam- switched to po Augmentin and will complete a 7 day course on 04/21 -Solu-Medrol switched to oral prednisone on April 16- weaning dosing- will give prednisone 20mg po daily x 3 more days then stop -Weaned off O2 (2) Aspiration into lower respiratory tract: -Appears to have occurred the morning of April 14, causing acute respiratory difficulty. as above (3) Atrial fibrillation: Permanent Afib, rates high while here -added Metoprolol dosing 100 mg BID (had been on this previously) and increased Diltiazem CD to 120mg BID per cardiology. -HR much better controlled today -Anticoagulation contraindicated per cardiology due to h/o epidural cervical spine hematoma and she has declined Watchman procedure in past (4) Pericardial effusion: -Mild to moderate pericardial effusion noted on CT Chest. No evidence of tamponade. -Cardiology consulted: Recommendations appreciated. No intervention recommended Would get repeat ECHO in 1 month and f/u with Cardiology (5) PND (post-nasal drip): -Most likely viral. Symptomatic care. Started FLonase (6) Essential hypertension: -BP control variable -Hydralazine and metoprolol were increased on 04/16, added losartan and increased diltiazem (7) Abdominal pain: -Mainly right upper quadrant area. -now resolved after having multiple bowel movements on 04/18 -KUB without obstruction. No obstruction seen on CT scan. -consider ruling out chronic cholecystitis with HIDA scan with ejection fraction at a later date- discussed at length need for this as an outpatient (8) Nausea and vomiting: -Present on admission. Now resolved. -Abdomen CT scan negative for obstruction on admission. -She does still have a gallbladder although she told prior hospitalist that she had previously had gallbladder removed. HIDA with ejection fraction unfortunately was canceled earlier on admission due to her respiratory difficulties. -Discussed the need for outpatient HIDA -No longer with complaints at present (9) Hypokalemia: -Now improved -Unable to tolerate intravenous potassium riders due to pain. She is tolerating the potassium elixir however despite the bad taste. Potassium has been corrected. -Continue repletion -Continue to monitor serial labs as an outpt Plan Dispo-dc to [facility] today Discussed care with son in law at bedside on day of discharge Notes For Next Care Provider Consider outpt HIDA scan Needs repeat ECHO for pericardial effusion in 1 month and f/u with Cardiology Medication Changes From Visit Added Augmentin 875mg po bid x 1 more dya Added prednisone 20mg po daily x 3 more days Admission HPI Per Admitting Provider 88 y/o patient with a PMHx of a fib, HFpEF, hypothyroidism, insomnia, HLD, pacemaker placement, and GERD here for evaluation of generally feeling unwell. Patient with general malaise, congestion, PND, and increased throat clearing for the last few days. PND is causing nausea, vomiting, abdominal upset, and decreased appetite. Has not taken her home meds for the last two days. She is having shortness of breath as well. No acute urinary concerns. No blood in the stool or vomit. Had a BM today. No fevers or CP. Was hospitalized in early February for UTI. She was hypertensive at that time as well because she had not been taking her medications. She was started on GDMT for HFpE and subsequently developed hypotension. ECHO showing small pericardial effusion at that time - no tamponade. Patient is on dilt for a fib. Is not anticoagulated. Discharge Exam Constitutional WD/WN, vitals as above Respiratory normal respiratory effort Auscultation: + wheezes (mild exp wheezes upper airways); no crackles and no rhonchi Cardiovascular Rate/Rhythm: regular rate and + irregularly irregular Heart Sounds: no murmur Gastrointestinal (Abdomen) normal bowel sounds, soft, nontender, no hepatosplenomegaly Psychiatric A+Ox3, euthymic affect Discharge Plan Discharge Items Patient Disposition: Transfer Inpatient Rehab Fac Reason For Visit: ACUTE HYPOXIC RESP FAILURE Discharge Diagnosis: Aspiration pneumonia Acute respiratory failure with hypoxia Activity: As commented below Lifting: Gradually increase as tolerated Bathing: No limitations Exercise/Sports: Gradually increase as tolerated Non-emergency contact: Primary Care Provider Call non-emergency contact if: you have any medication questions and your symptoms worsen Follow-up/Referrals: Edgar Fine PA-C [Primary Care Provider] - (Follow up after discharge from rehab) Diet: Heart Healthy Addtl Attending Provider Instructions: Please finish out the antibiotics for your pneumonia and the prednisone taper for wheezing. You will need rehab to strengthen your legs and rebuild your balance. Your heart rate was high with your atrial fibrillation and your diltiazem dose was increased. You had metoprolol restarted as this had previously been discontinued. Your blood pressures were high as well and you had losartan and hydralazine added to your regimen. Pending Studies at Discharge: No Stand-Alone Forms: My [facility] Skilled Items Patient informed of condition?: Yes DNR: Yes Discharge Level of Care: Acute rehab Communicable Disease: No Discharge Prognosis: Improving Lines: None Urinary Catheter: No Medications and DC Order Prescriptions: New metoprolol tartrate 100 mg Tablet 100 mg PO BID Qty: 60 0RF potassium chloride 20 mEq/15 mL Liquid 20 meq PO QAM Qty: 120 0RF losartan 25 mg Tablet 25 mg PO QAM Qty: 30 0RF diltiazem HCl [Cardizem CD] 120 mg Capsule,Extended Release 24hr 120 mg PO BID Qty: 60 0RF hydralazine 50 mg Tablet 50 mg PO TID Qty: 90 0RF fluticasone propionate 50 mcg/actuation [place],Suspension 2 spray NA BID Qty: 16 0RF amoxicillin-pot clavulanate 875-125 mg Tablet 1 tab PO BIDM Qty: 2 0RF polyethylene glycol 3350 [Miralax] 17 gram Powder In Packet 17 g PO DAILY Qty: 30 0RF sucralfate 1 gram Tablet 1 g PO ACHS 10 Days Qty: 40 0RF prednisone 10 mg Tablet 20 mg PO DAILY 3 Days Qty: 6 0RF guaifenesin [Mucinex] 600 mg Tablet Extended Release 12hr 1,200 mg PO Q12 Qty: 14 0RF Continued donepezil 5 mg tablet 5 mg PO DAILY atorvastatin 20 mg tablet 20 mg PO DAILY@2100 sertraline 50 mg tablet 50 mg PO DAILY@2100 docusate sodium 100 mg Tablet 200 mg PO BID aspirin 325 mg Tablet 325 mg PO DAILY@2100 famotidine [Pepcid] 40 mg tablet 40 mg PO DAILY@2100 omeprazole 40 mg capsule,delayed release(DR/EC) 40 mg PO DAILY@1000 levothyroxine [Synthroid] 75 mcg tablet 75 mcg PO DAILY@1000 pregabalin [Lyrica] 50 mg capsule 100 mg PO DAILY@1000,2100 cranberry extract 500 mg Tablet 1,000 mg PO DAILY Rx Instructions: administer with meals ibandronate 150 mg tablet 150 mg PO .MONTHLY ferrous sulfate 325 mg (65 mg iron) tablet 325 mg PO BID melatonin 3 mg Tablet 3 mg PO HS Qty: 30 0RF magnesium oxide 400 mg magnesium tablet 400 mg PO DAILY Qty: 30 0RF furosemide [Lasix] 20 mg tablet 20 mg PO DAILY PRN (Reason: edema/swelling of legs) Qty: 30 0RF zolpidem 10 mg tablet 5 mg PO HS PRN (Reason: Insomnia) sennosides [senna] 8.6 mg tablet 8.6 mg PO BID PRN (Reason: Constipation) cyanocobalamin (vitamin B-12) [Vitamin B-12] 2,500 mcg tablet, sublingual 2,500 mcg PO DAILY Discontinued diltiazem HCl 180 mg capsule,extended release 24hr 180 mg PO DAILY Qty: 30 1RF Discharge Orders: Discharge Order (Routine); Ordered 04/20/24 Ordered By: Sil Abad Admission Data Admit Date/Time: 04/09/24 22:52 Attending Provider: Sil Abad Admit Provider: Anne Goss Primary Care Provider: Edgar Fine Other Providers: Kanu Schwartz; [facility]; Molly Alexander Kip M.; Tommy Mackay; Lc Gardiner; Jamie Lam; Jaime Hedrick Jr; Daniel Carr; Lydia Jerry; Selene Rand; Kwasi Maria; Kwasi Jo; Josemanuel Islas; Kita Magana; Jamie Carvalho; Petra Moyer; Conrado Loza; Benjamin Garcia; Konstantin Gonzales; Jay Arredondo Hospital Stay Data Consultations 04/09/24 21:48 ED Decision to Admit Stat 04/09/24 23:38 Consult Cardiology Routine 04/14/24 10:34 Consult Cardiology Routine 04/18/24 13:51 Consult Cardiology Routine Diagnostic Imagining Performed 04/09/24 19:46 CT abd pelvis IV con only Stat CT head/brain wo con Stat 04/09/24 20:03 CT angio chest PE protocol Stat 04/14/24 11:30 FL video swallow Routine 04/14/24 22:36 CT head/brain wo con Stat Pending Results Patient Have Any Pending Studies at Discharge: No Discharge Instructions Given to Patient (Per Discharging Provider) Please finish out the antibiotics for your pneumonia and the prednisone taper for wheezing. You will need rehab to strengthen your legs and rebuild your balance. Your heart rate was high with your atrial fibrillation and your diltiazem dose was increased. You had metoprolol restarted as this had previously been discontinued. Your blood pressures were high as well and you had losartan and hydralazine added to your regimen. Total Time Total Time Spent Total Time Spent (In Minutes): 35 min Coding Level of Care Code 52679 INP/OBS DISCH >30 MIN Diagnoses Acute respiratory failure with hypoxemia J96.01 Aspiration into lower respiratory tract T17.800A Atrial fibrillation I48.91 Pericardial effusion I31.39 PND (post-nasal drip) R09.82 Essential hypertension I10 Abdominal pain R10.9 Nausea and vomiting R11.2 Hypokalemia E87.6
[2024-04-20 13:36] VITALS: BP 138/74; PULSE 83
[2024-04-20] MEDS ORDERED: AMOXICILLIN/CLAVULANATE 875 MG TAB PO SCH (17:00)
--- NOTE | 2024-04-21 13:42 | Coding Query ---
CODING QUERY To promote full compliance with coding requirements relating to patient care, provider participation is requested in all cases of nurse practitioner physicians assistant uncertainty. Please assist us with the question(s) below: 04/14 pn-Acute respiratory failure with hypoxemia: Plan: She may have aspirated prior to admission due to vomiting. She appears to have aspirated again this morning, April 14. Repeat portable chest x-ray today, April 14, reveals some evidence of pulmonary vascular congestion and right lower lobe infiltrate. She is now on intravenous Unasyn and she received a dose of parenteral Lasix. 04/17 PN/DS-Acute respiratory failure with hypoxemia: Plan: -She may have aspirated prior to admission due to vomiting. -She appeared to have aspirated again the morning of April 14. -She was seen by speech therapy and a video swallow was completed. Diet was adjusted. -Chest CTA negative for PE on admission. -Covering empirically on abx with Ampicillin-sulbactam- will soon plan to switch to po abx to complete 7 day course -Solu-Medrol switched to oral prednisone on April 16- currently on 10mg TID- plan to wean by 10 mg q 3 days -Wean O2 as permitted (2) Aspiration into lower respiratory tract: -Appears to have occurred the morning of April 14, causing acute respiratory difficulty. as above Coding Question(s): Can you please clarify the patient's aspiration and being on antibiotics, such as: [ x ] Aspiration Pneumonitis [ ] Aspiration without pneumonitis [ ] Other [ ] Unable to determine Physician's Response(s): Thank you Andreea South Principal Diagnosis: "that condition established after study, to be chiefly responsible for occasioning the admission of the patient to the hospital for care." Co-Existing Principal Diagnosis: "when two or more diagnoses equally meet the criteria for principal diagnosis as determined by the circumstances of admission, diagnostic work up, and/or therapy provided, and the Alphabetic Index, Tabular List, or another coding guideline does not provide sequencing direction, any one of the diagnoses may be sequenced first." "When the physician has documented what appears to be a current diagnosis in the body of the record, but has not included the diagnosis in the final diagnostic statement, the physician should be asked whether the diagnosis should be added." (Source Coding Clinic 2 QTR90. p3-4) [facility]
--- NOTE | 2024-04-21 21:42 | Electrocardiogram Report ---
Test Reason : Blood Pressure : */* mmHG Vent. Rate : 86 BPM Atrial Rate : 66 BPM P-R Int : * ms QRS Dur : 86 ms QT Int : 348 ms P-R-T Axes : * 71 -31 degrees QTcB Int : 416 ms Atrial fibrillation with occasional ventricular-paced complexes Nonspecific T wave abnormality Abnormal ECG When compared with ECG of 14-Apr-2024 22:32, T wave inversion less evident in Inferolateral leads Confirmed by Daniel Carr ([id number]) on 04/21/2024 9:42:03 PM Referred By: REFERRED SELF Confirmed By: Daniel Carr
== END 2024-04-20 14:24 | DRG 177 ==
LOC: ED 19:06 → SUATTDRO 22:52 → 2N 22:52 → 2S 04-15 00:39

== ENCOUNTER 2024-05-13 16:52 | Inpatient (IN) ==
--- NOTE | 2024-05-13 17:09 | Emergency Department Note ---
Impression & Plan Arterial occlusion, lower extremity, Permanent atrial fibrillation ED Provider Note NAME: CHARLES WONG AGE: 88 SEX: F : 1935 ARRIVES VIA: Ambulance INFORMANT: Patient, the patient's daughter ED PROVIDER(S): Tommy Whatley DO CHIEF COMPLAINT: Leg pain HPI: The patient is an 88-year-old female who arrived to the emergency department via ambulance for leg pain. The patient was very uncomfortable. She feels numbness in the left leg. The patient was seen in our facility recently for pain in the same leg. At that time it was more musculoskeletal after a fall. The patient denies having any recurrent falls. She does have a history of atrial fibrillation and has a pacemaker. She takes no blood thinners. The patient received 150 mcg of fentanyl prior to arrival. ROS: See above HPI for pertinent positives & negatives. A total of 10 systems reviewed and were otherwise negative. PAST MEDICAL HISTORY: See Below PAST SURGICAL HISTORY: See Below FAMILY HISTORY: See Below SOCIAL HISTORY: See Below HOME MEDICATIONS: See Below ALLERGIES: See Below VITALS: See Below PHYSICAL EXAMINATION: GENERAL: The is awake and alert. She is very anxious and uncomfortable appearing. EYES: The conjunctivae are clear. The pupils are round and reactive. EARS, NOSE, MOUTH AND THROAT: The nose is without any evidence of any deformity. NECK: The neck is nontender and supple. RESPIRATORY: Normal respiratory effort is noted there is no evidence of wheezing rhonchi or rales CARDIOVASCULAR: Regular rate and rhythm noted there no murmurs rubs or gallops normal S1 normal S2. GASTROINTESTINAL: The abdomen is soft. Abdomen is nontender. MUSCULOSKELETAL/EXTREMITIES: There is no evidence of gross deformity full range of motion is noted in the hips and shoulders. SKIN: Skin in the left foot is cool. Pulses are diminished in the left foot. There is no calf tenderness. NEUROLOGIC: Patient is awake alert and oriented x3 MEDICAL DECISION MAKING: Patient is an 88-year-old female who presented to the emergency department for an evaluation of lower extremity pain. The patient was seen in our facility recently for lower extremity pain that was musculoskeletal after a fall. The patient had continued symptoms and was supposed to be kept in our facility for inpatient management but the patient did not wish to stay and left AGAINST MEDICAL ADVICE. The patient returns today with ongoing and worsening lower extremity pain. There is no reported new fall but the patient was found to have a temperature difference between her left and right foot. I discussed the patient's laboratory and radiographic studies with her and her family members. She was treated with IV pain medication as well as IV heparin for noted arterial occlusion of both lower extremities. I discussed her condition with the on-call [facility] Hospitalist. They have agreed to evaluate the patient in the emergency department for further management and disposition. Triage Nursing notes reviewed. Prior medical records reviewed Vital Signs: reviewed and remarkable for elevated blood pressure. Differential diagnosis: DVT, musculoskeletal, infection, joint effusion, trauma, lymphedema, idiopathic, CHF, as well as other pathologies. ER treatment provided: See below Diagnostics interpreted by me: ECG: EKG was obtained in the emergency department. My interpretation is ventricular paced rhythm at 63 bpm. There is a right bundle-branch block pattern favored. This was compared to a tracing from May 11, 2024 no significant changes were noted. Cardiac Monitoring: An order was placed for continuous cardiac monitoring. The monitor shows a rate of 68 bpm with paced rhythm. Laboratory studies: As stated above and show below. Imaging studies: See below. Radiographic imaging was reviewed by myself Consultation(s): I discussed this case with Dr. Gandhi [facility] ED COURSE: Procedures: none Critical Care: I have personally spent greater than 45 minutes of critical care time in the direct management of this patient. This includes bedside care, interpretation of diagnostic studies, and testing, discussion with consultants, patient, and family members, and other required patient management activities. This 45 minutes is in excess of all separately billable procedures. Past Med/Surg History Problem List (Updated 05/13/24 @ 20:39 by Tommy Whatley DO) Arterial occlusion, lower extremity (Acute) Contusion of ankle, left (Acute) Contusion of hip, left (Acute) Fall (Acute) Elevated troponin I level (Acute) Abnormal EKG (Acute) Chest pain (Acute) Atypical chest pain Essential hypertension Hypokalemia Aspiration into lower respiratory tract Permanent atrial fibrillation (Acute) Presence of permanent cardiac pacemaker Nausea and vomiting Respiratory alkalosis PND (post-nasal drip) Stroke (Acute) Hypoxia (Acute) Pericardial effusion Thrombocytopenia Female bladder prolapse Acute metabolic encephalopathy UTI (urinary tract infection) Acute diastolic CHF (congestive heart failure) Acute respiratory failure with hypoxemia Elevated troponin Dyspnea Atrial fibrillation Hypokalemia (Acute) Anticoagulation therapy not indicated Dizziness Hypothyroidism DVT prophylaxis Insomnia Depression (Chronic) B12 deficiency Peripheral neuropathy (Chronic) Hypertension (Chronic) 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) Cellulitis of left orbit (Acute) Abdominal pain (Acute) Stomach ulcer (Acute) GERD (gastroesophageal reflux disease) (Chronic) Atrial fibrillation with rapid ventricular response (Chronic) Vertigo (Acute) Weakness (Acute) Medical History Periorbital cellulitis of left eye Hyperlipidemia LDL goal <70 Thoracic back pain CVA (cerebral vascular accident) Epidural hematoma Weight loss, unintentional Tricuspid regurgitation Tachy-jazmine syndrome Pulmonary hypertension Dyslipidemia Cerebrovascular disease Benign hypertension Aortic regurgitation Anxiety disorder Headache Surgical History H/O cervical spine surgery "cervical decompression with evacuation of cervical epidural hematoma 09/22/2012" S/P tonsillectomy H/O: hysterectomy History of bilateral tubal ligation History of appendectomy Family History Other Family history non-contributory Social History Smoking Status: Never smoker Do You Dip or Chew Tobacco: No; Hx Alcohol Use: No Hx Substance Use: No Preferred Language: Cambodian Communication Ability: Effective Manager Federal Required: No Beliefs That Will Affect Care: None marital status: / Current Living Situation: Family Current Living Situation Comment: [facility] Feels Safe at Home: Yes Assistive Devices: Cane, Raised Toilet Seat and Walker Allergies Allergies Allergy/AdvReac Type Severity Reaction Status Date / Time oxycodone AdvReac Intermediate HALLUCINATI Verified 05/13/24 20:37 ONS morphine AdvReac Unknown DELIRIUM Verified 05/13/24 20:37 Home Meds Home Medications Medication Instructions Recorded Confirmed aspirin 325 mg tablet 325 mg PO DAILY@2100 05/06/18 05/13/24 famotidine 40 mg tablet (Pepcid) 40 mg PO QAM 05/06/18 05/13/24 levothyroxine 75 mcg tablet 75 mcg PO QAM 05/06/18 05/13/24 (Synthroid) omeprazole 40 mg capsule,delayed 40 mg PO QAM 05/06/18 05/13/24 release atorvastatin 20 mg tablet 20 mg PO DAILY@2100 11/16/18 05/13/24 docusate sodium 100 mg tablet 200 mg PO QPM 11/16/18 05/13/24 sertraline 50 mg tablet 50 mg PO QPM 11/16/18 05/13/24 donepezil 5 mg tablet 5 mg PO HS 02/09/22 05/13/24 cranberry extract 500 mg tablet 1,000 mg PO QAM 02/21/24 05/13/24 ferrous sulfate 325 mg (65 mg 325 mg PO BID 02/21/24 05/13/24 iron) tablet ibandronate 150 mg tablet 150 mg PO .MONTHLY 02/21/24 05/13/24 cyanocobalamin (vitamin B-12) 2,500 mcg PO QAM 04/09/24 05/13/24 2,500 mcg sublingual tablet (Vitamin B-12) sennosides 8.6 mg tablet (senna) 8.6 mg PO QAM PRN Constipation 04/09/24 05/13/24 zolpidem 10 mg tablet 5 mg PO HS PRN Insomnia 04/09/24 05/13/24 diltiazem HCl 240 mg capsule,24 180 mg PO QAM 05/11/24 05/13/24 hr,extended release (Tiadylt ER) losartan 50 mg tablet 50 mg PO DAILY 05/11/24 05/13/24 metoprolol tartrate 100 mg tablet 100 mg PO QAM 05/11/24 05/13/24 pregabalin 100 mg capsule 200 mg PO Q12 05/11/24 05/13/24 magnesium oxide 400 mg PO QAM 05/13/24 05/13/24 polyethylene glycol 3350 17 gram 17 g PO DAILY PRN Constipation 05/13/24 05/13/24 oral powder packet (Miralax) Previous Rx's Medication Instructions Recorded furosemide 20 mg tablet (Lasix) 20 mg PO DAILY PRN edema/swelling 02/28/24 of legs #30 tabs melatonin 3 mg tablet 3 mg PO HS #30 tabs 02/28/24 fluticasone propionate 50 2 spray NA BID #16 grams 04/20/24 mcg/actuation nasal spray,suspension Results & Data (ED) Vital Signs Vital Signs - 24 hr 05/13/24 16:53 05/13/24 16:54 05/13/24 20:11 Temperature 37.2 C Temperature Source Oral Pulse Rate 74 60 Pulse Rate [Apical] 68 Pulse Rhythm Regular Regular Pulse Strength Normal Respiratory Rate 24 Respiratory Effort / Characteristics Non-Labored Spontaneous Respiratory Depth Normal Respiratory Pattern Regular Blood Pressure 92/52 L Blood Pressure [Right Arm] 178/131 H Blood Pressure Mean 65 Blood Pressure Mean [Right Arm] 146 Blood Pressure Position Sitting Pulse Oximetry 89 L 96 95 Oxygen Delivery Method Room Air Nasal Cannula Nasal Cannula Oxygen Flow Rate 2 2 2 Sepsis Recent Fever Within 48 Hours No Sepsis New/Unexplained Change in Mental Status No Sepsis Action Taken by Nursing No Action Required Home Medications Current Medication List: was personally reviewed by me Laboratory Data Attestation: I reviewed the patient's lab results. 05/13/24 17:10 05/13/24 17:10 Lab Results 05/13/24 05/13/24 Range/Units 17:10 21:04 WBC 7.23 (4.8-10.8) K/ul RBC 4.22 (4.20-5.40) M/uL Hgb 12.0 (12.0-16.0) g/dl Hct 37.0 (37.0-47.0) % MCV 87.7 (80.0-100.0) fL MCH 28.4 (25.0-34.0) pg MCHC 32.4 (32.0-36.0) g/dL RDW Std Deviation 49.6 H (36.4-46.3) fL RDW Coeff of Alfredo 15.7 H (11.5-14.5) % Plt Count 135 (130-400) K/uL MPV 12.2 (9.4-12.4) fL Immature Gran % (Auto) 0.1 % Neut % (Auto) 65.6 % Lymph % (Auto) 19.6 % [place] % (Auto) 10.0 % Eos % (Auto) 4.1 % Baso % (Auto) 0.6 % Neut # (Auto) 4.74 (1.40-6.50) K/uL Lymph # (Auto) 1.42 (1.20-3.40) K/uL [place] # (Auto) 0.72 H (0.11-0.59) K/uL Eos # (Auto) 0.30 (0.00-0.50) K/uL Baso # (Auto) 0.04 (0.00-0.20) K/uL Immature Gran # (Auto) 0.01 (0.01-0.20) K/uL PT 11.3 (9.0-12.0) Seconds INR 1.0 (0.9-1.1) APTT 28 (21-31) Seconds PTT Ratio 1.0 Sodium 142 (136-145) mmol/L Potassium 3.9 (3.5-5.1) mmol/L Chloride 111 H (98-107) mmol/L Carbon Dioxide 26 (21-32) mmol/L Anion Gap 5 (3-11) BUN 13 (6-23) mg/dl Creatinine 0.67 (0.6-1.2) mg/dl Est Cr Clr Drug Dosing 48.9 ml/min Est GFR ( Amer) 91.6 ml/min Est GFR (Non-Af Amer) 79.0 ml/min BUN/Creatinine Ratio 19.4 (10-20) Glucose 94 (70-99(Fasting)) mg/dl Calcium 8.6 (8.6-10.3) mg/dl Total Bilirubin 0.4 (0.2-1.0) mg/dl AST 14 (13-39) U/L ALT 9 (7-52) U/L Alkaline Phosphatase 82 (34-104) U/L Troponin I High Sens 18.5 H 11.4 D (0-14) pg/ml Total Protein 5.7 L (6.0-8.3) gm/dl Albumin 3.7 (3.4-5.0) gm/dl Globulin 2.0 L (2.5-4.0) gm/dl Albumin/Globulin Ratio 1.9 (0.9-2) Lipase 10 L (11-82) U/L Administered Medications Fentanyl Citrate (Fentanyl Citrate Pf 100 Mcg/2 Ml Vial) 50 mcg IV Q15M PRN PRN Reason: Pain Stop: 05/27/24 16:53 Last Admin: 05/13/24 19:26 Dose: 50 mcg Documented By: Admin: 05/13/24 18:41 Dose: 50 mcg Documented By: Admin: 05/13/24 17:56 Dose: 50 mcg Documented By: RAIMUNDO Heparin Sodium/Dextrose (Heparin Sodium/Dextrose) 25,000 units in 500 mls @ 20 mls/hr IV .Q24H ANDRA; Protocol Stop: 06/12/24 19:44 Last Admin: 05/13/24 20:05 Dose: 1,000 units/hr, 20 mls/hr Documented By: GILMA Co-signed By: JACOB Discontinued Medications Heparin Sodium (Porcine) (Heparin Sod (Porcine) 1000 Unit/Ml) 4,000 units IV NOW ONE Stop: 05/13/24 20:01 Last Admin: 05/13/24 20:05 Dose: 4,000 units Documented By: GILMA Co-signed By: JACOB Heparin Sodium/Dextrose (Heparin Iv Adult Wt-Based Standard W/ Initial Bolus Protocol) 1 each IV NOW STA; Protocol Stop: 05/13/24 19:27 Last Admin: 05/13/24 20:11 Dose: 1 each Documented By: GILMA Hydromorphone HCl (Hydromorphone Inj 0.5 Mg/0.5 Ml Syr) 0.5 mg IV NOW STA Stop: 05/13/24 21:27 Last Admin: 05/13/24 21:34 Dose: 0.5 mg Documented By: GILMA Sodium Chloride (Nss) 500 mls @ 999 mls/hr IV .Q31M STA Stop: 05/13/24 17:24 Last Infusion: 05/13/24 19:16 Dose: Infused Documented By: Admin: 05/13/24 17:30 Dose: 999 mls/hr Documented By: RAIMUNDO Ioversol (Optiray 320 125ml) 118 ml IV ONCE ONE Stop: 05/13/24 17:43 Last Admin: 05/13/24 17:43 Dose: 118 ml Documented By: MERY Ondansetron HCl (Ondansetron Inj 2 Mg/Ml 2 Ml Vial) 4 mg IV NOW STA Stop: 05/13/24 16:55 Last Admin: 05/13/24 17:15 Dose: 4 mg Documented By: RAIMUNDO Imaging Data Attestation: I personally reviewed and interpreted this imaging study as follows: My Impression: 1 view chest x-ray was obtained in the emergency department. My interpretation is no free air or definite infiltrate, final report below. Radiologist's Impression: Chest X-Ray 05/13/24 16:54 XR chest 1V portable HISTORY: 88 years-old Female Chest pain, nonspecific COMPARISON: 05/11/2024 TECHNIQUE: AP view of the chest FINDINGS: Cardiac silhouette is enlarged. Left subclavian pacer. Atherosclerosis of the aorta. Small pleural effusions with bibasilar opacities are again noted. Pulmonary vascular congestion. No pneumothorax. Bones appear intact. IMPRESSION: 1. Cardiomegaly with unchanged pulmonary vascular congestion. 2. Stable small pleural effusions with mild bibasilar opacities. ACT 112: Negative or not required by law. The above report was generated using voice recognition software. It may contain grammatical, syntax or spelling errors. Electronically signed by: Victorino Cuadra M.D. 05/13/2024 5:24 PM Lower Extremity CTA 05/13/24 16:54 CT angio LE LT w inc wo if don HISTORY: 88 years-old Female cold leg acute pain of the left lower leg with peripheral arterial disease COMPARISON: CT 04/09/2024 TECHNIQUE: CTA left lower extremity was obtained with IV contrast. All measurements were obtained according to NASCET criteria. 3-D coronal and sagittal MIPS were obtained and submitted for review. A dose lowering technique was used consistent with the principals of KEYUR. FINDINGS: There is occlusion of the imaged left common iliac artery and iliac bifurcation with reconstitution of flow within the left internal iliac artery on image 26 series 3. Additionally, there is occlusion of the left common and superficial femoral arteries with reconstitution of flow within ranges of the profundus femoris. Additionally, there is occlusion of the popliteal artery, tibioperoneal trunk and arteries of the lower leg. The right common and external iliac arteries are patent. There is occlusion of a majority of the right superficial femoral artery with reconstitution within the popliteal artery. Three-vessel flow identified in the right lower leg to the level of the ankle. Masslike thickening and enhancement of the ileocecal valve. No bowel obstruction. No acute fracture. IMPRESSION: 1. There is occlusion of the left common and external iliac arteries extending through the arteries of the left lower leg. These findings have progressed from the 04/09/2024 study. 2. There is only minimal flow noted within branches of the left profunda femoris artery. 3. Occlusion involves the majority of the right superficial femoral artery with reconstitution of flow within the popliteal artery. 4. Masslike thickening and enhancement involves the cecum. Correlation with colonoscopy recommended. ACT 112: Negative or not required by law. The above report was generated using voice recognition software. It may contain grammatical, syntax or spelling errors. Electronically signed by: Victorino Cuadra M.D. 05/13/2024 7:14 PM Discharge Plan Visit Data Chief Complaint: Leg Injury/Pain ED Provider: Tommy Whatley Discharge Problem: Arterial occlusion, lower extremity, Permanent atrial fibrillation Patient Disposition: Being Evaluated by Hospitalist Forms Stand Alone Forms: My [facility] Prescriptions Prescriptions: No Action donepezil 5 mg tablet 5 mg PO HS atorvastatin 20 mg tablet 20 mg PO DAILY@2100 sertraline 50 mg tablet 50 mg PO QPM docusate sodium 100 mg Tablet 200 mg PO QPM aspirin 325 mg Tablet 325 mg PO DAILY@2100 famotidine [Pepcid] 40 mg tablet 40 mg PO QAM omeprazole 40 mg capsule,delayed release(DR/EC) 40 mg PO QAM levothyroxine [Synthroid] 75 mcg tablet 75 mcg PO QAM losartan 50 mg tablet 50 mg PO DAILY Rx Instructions: PRIMARY PHYSICIAN CHANGED AFTER DISCHARGE LAST TIME; DAUGHTER IS NOT SURE IF IT'S NOW STILL DAILY OR IF IT WAS REMOVED diltiazem HCl [Tiadylt ER] 240 mg capsule,extended release 24 hr 180 mg PO QAM metoprolol tartrate 100 mg tablet 100 mg PO QAM pregabalin 100 mg capsule 200 mg PO Q12 cranberry extract 500 mg Tablet 1,000 mg PO QAM Rx Instructions: administer with meals ibandronate 150 mg tablet 150 mg PO .MONTHLY ferrous sulfate 325 mg (65 mg iron) tablet 325 mg PO BID melatonin 3 mg Tablet 3 mg PO HS Qty: 30 0RF furosemide [Lasix] 20 mg tablet 20 mg PO DAILY PRN (Reason: edema/swelling of legs) Qty: 30 0RF zolpidem 10 mg tablet 5 mg PO HS PRN (Reason: Insomnia) sennosides [senna] 8.6 mg tablet 8.6 mg PO QAM PRN (Reason: Constipation) cyanocobalamin (vitamin B-12) [Vitamin B-12] 2,500 mcg tablet, sublingual 2,500 mcg PO QAM fluticasone propionate 50 mcg/actuation [place],Suspension 2 spray NA BID Qty: 16 0RF polyethylene glycol 3350 [Miralax] 17 gram powder in packet 17 g PO DAILY PRN (Reason: Constipation) magnesium oxide 400 mg magnesium tablet 400 mg PO QAM Referrals Referrals: Edgar Fine [facility] [Primary Care Provider] -
[2024-05-13] MEDS: ONDANSETRON INJ 2 MG/ML 2 ML VIAL IV STA (17:15)
--- NOTE | 2024-05-13 17:26 | XRay Report ---
XR chest 1V portable HISTORY: 88 years-old Female Chest pain, nonspecific COMPARISON: 05/11/2024 TECHNIQUE: AP view of the chest FINDINGS: Cardiac silhouette is enlarged. Left subclavian pacer. Atherosclerosis of the aorta. Small pleural ef fusions with bibasilar opacities are again noted. Pulmonary vascular congestion. No pneumothorax. Bon es appear intact. IMPRESSION: 1. Cardiomegaly with unchanged pulmonary vascular congestion. 2. Stable small pleural effusions with mild bibasilar opacities. ACT 112: Negative or not required by law. The above report was generated using voice recognition software. It may contain grammatical, syntax o r spelling errors. Electronically signed by: Victorino Cuadra M.D. 05/13/2024 5:24 PM
[2024-05-13 17:29] LABS: Basophils # (auto) 0.04 K/uL (0.00-0.20); Basophils % (auto) 0.6 %; Eosinophils % (auto) 4.1 %; Immature Granulocytes # (auto) 0.01 K/uL (0.01-0.20); Immature Granulocytes % (auto) 0.1 %; Lymphocytes # (auto) 1.42 K/uL (1.20-3.40); Lymphocytes % (auto) 19.6 %; Mean Corpuscular Hemoglobin 28.4 pg (25.0-34.0); Mean Corpuscular Hgb Conc 32.4 g/dL (32.0-36.0); Mean Corpuscular Volume 87.7 fL (80.0-100.0); Mean Platelet Volume 12.2 fL (9.4-12.4); Monocytes # (auto) 0.72 K/uL (0.11-0.59); Neutrophils # (auto) 4.74 K/uL (1.40-6.50); Neutrophils % (auto) 65.6 %; Platelet Count 135 K/uL (130-400); RDW Coefficient of Variation 15.7 % (11.5-14.5); RDW Standard Deviation 49.6 fL (36.4-46.3); Red Blood Count 4.22 M/uL (4.20-5.40); White Blood Count 7.23 K/ul (4.8-10.8)
[2024-05-13] MEDS: SODIUM CHLORIDE 0.9% 500 ML IV STA (17:30)
[2024-05-13] MEDS: OPTIRAY 320 125ml IV ONE (17:43)
[2024-05-13 17:47] LABS: Albumin Globulin Ratio 1.9 (0.9-2); Albumin Level 3.7 gm/dl (3.4-5.0); BUN Creatinine Ratio 19.4 (10-20); Bilirubin,Total 0.4 mg/dl (0.2-1.0); Calcium 8.6 mg/dl (8.6-10.3); Creatinine Clr Calc Pharmacy 48.9 ml/min; Est GFR (African American) 91.6 ml/min; Potassium 3.9 mmol/L (3.5-5.1); Total Protein 5.7 gm/dl (6.0-8.3)
[2024-05-13 17:53] LABS: Troponin I High Sensitivity 18.5 pg/ml (0-14)
[2024-05-13] MEDS: fentaNYL citrate PF 100 MCG/2 ML VIAL IV PRN (17:56)
[2024-05-13 18:06] LABS: Partial Thromboplastin Time 28 Seconds (21-31); Prothrombin Time 11.3 Seconds (9.0-12.0)
--- NOTE | 2024-05-13 19:17 | CT Scan Report ---
CT angio LE LT w inc wo if don HISTORY: 88 years-old Female cold leg acute pain of the left lower leg with peripheral arterial dise ase COMPARISON: CT 04/09/2024 TECHNIQUE: CTA left lower extremity was obtained with IV contrast. All measurements were obtained acc ording to NASCET criteria. 3-D coronal and sagittal MIPS were obtained and submitted for review. A do se lowering technique was used consistent with the principals of KEYUR. FINDINGS: There is occlusion of the imaged left common iliac artery and iliac bifurcation with reconstitution o f flow within the left internal iliac artery on image 26 series 3. Additionally, there is occlusion o f the left common and superficial femoral arteries with reconstitution of flow within ranges of the p rofundus femoris. Additionally, there is occlusion of the popliteal artery, tibioperoneal trunk and a rteries of the lower leg. The right common and external iliac arteries are patent. There is occlusion of a majority of the righ t superficial femoral artery with reconstitution within the popliteal artery. Three-vessel flow ident ified in the right lower leg to the level of the ankle. Masslike thickening and enhancement of the ileocecal valve. No bowel obstruction. No acute fracture. IMPRESSION: 1. There is occlusion of the left common and external iliac arteries extending through the arteries o f the left lower leg. These findings have progressed from the 04/09/2024 study. 2. There is only minimal flow noted within branches of the left profunda femoris artery. 3. Occlusion involves the majority of the right superficial femoral artery with reconstitution of yoel w within the popliteal artery. 4. Masslike thickening and enhancement involves the cecum. Correlation with colonoscopy recommended. ACT 112: Negative or not required by law. The above report was generated using voice recognition software. It may contain grammatical, syntax o r spelling errors. Electronically signed by: Victorino Cuadra M.D. 05/13/2024 7:14 PM
[2024-05-13] MEDS ORDERED: HEPARIN SOD (PORCINE) 1000 UNIT/ML IV ONE (19:42)
[2024-05-13] MEDS: HEPARIN SOD (PORCINE) 1000 UNIT/ML IV ONE (20:05)
[2024-05-13] MEDS: HEPARIN SODIUM/DEXTROSE 25,000 UNITS/500 ML BAG IV SCH (20:05)
[2024-05-13] MEDS: Heparin IV Adult Wt-Based Standard w/ INITIAL Bolus Protocol IV STA (20:11)
[2024-05-13] MEDS: HYDROmorphone INJ 0.5 MG/0.5 ML SYR IV STA (21:34)
[2024-05-13] MEDS ORDERED: POLYETHYLENE (MIRALAX) 17 GM PACK PO PRN (22:45)
[2024-05-13] MEDS ORDERED: ACETAMINOPHEN 500 MG TAB PO PRN (22:45)
[2024-05-13] MEDS ORDERED: SENNA 8.6 MG TAB PO PRN (22:45)
[2024-05-13] MEDS ORDERED: FUROSEMIDE 20 MG TAB PO PRN (22:45)
--- NOTE | 2024-05-13 23:50 | History & Physical Report ---
Date of Service May 13, 2024 Assessment & Plan (1) Arterial occlusion, lower extremity: Plan: - Noted on CTA-> will likely need CTA aorta with runoff - started on Heparin gtt-> plan to continue - continue aspirin - does have a history of cervical epidural hematoma, which is why she is not on anticoagulation for her afib-> watch closely on heparin gtt. Discussed risk/benefit with pt+ family - consult vascular surgery - Tylenol prn, Dilaudid 0.25mg pain 4-6, 0.5mg pain 7-10 (2) Elevated troponin I level: Plan: - Mildly elevated troponin 18.5-> 11.4 - No ischemic changes on EKG - denies chest pain (3) Colonic thickening: Plan: - incidental on CTA - denies dark/bloody BM - will need GI f/u, likely colonoscopy (4) Permanent atrial fibrillation: Plan: - noted history - not on anticoagulation due to history of cervical epidural hematoma - continue Cardizem, metoprolol for rate control Plan Chronic Conditions: HTN: continue losartan GERD: continue home medications -> famotidine, pantoprazole Depression: continue home medications -> sertraline, Ambien qHS HLD: continue statin B12 def: continue B12 Hypothyroidism: Continue levothyroxine Code: DNR/DNI VTE Prophylaxis: Heparin gtt Diet: NPO pending vascular consult Dispo: Tele History of Present Illness Primary Care Provider: Edgar Fine 88 year old female with a past medical history of Afib, HFpEF, hypothyroidism, insomnia, HLD, pacemaker placement, and GERD presenting with left LE pain. Daughter and son in law present at bedside and help to provide history. Worsening left lower extremity pain- unclear when it start but likely weeks to months- acutely worse this afternoon. Pain/numbness in majority of left leg- worst in foot. Was evaluated earlier this week in the ED after a fall and was having some left hip/ankle pain at that time,left AMA. ED Course Significant for: LE CTA with occlusion of the left common and external iliac arteries extending through the arteries of the left lower leg. Occlusion involves the majority of the right superficial femoral artery with reconstitution of flow within the popliteal artery. Masslike thickening and enhancement involves the cecum. Correlation with colonoscopy recommended. Started on Heparin gtt. Allergies Allergy/AdvReac Type Severity Reaction Status Date / Time oxycodone AdvReac Intermediate HALLUCINATI Verified 05/13/24 20:37 ONS morphine AdvReac Unknown DELIRIUM Verified 05/13/24 20:37 Home Medications Medication Instructions Recorded Confirmed Type aspirin 325 mg tablet 325 mg PO DAILY@209905/06/18 05/13/24 History famotidine 40 mg tablet (Pepcid) 40 mg PO QAM 05/06/18 05/13/24 History levothyroxine 75 mcg tablet 75 mcg PO QAM 05/06/18 05/13/24 History (Synthroid) omeprazole 40 mg capsule,delayed 40 mg PO QAM 05/06/18 05/13/24 History release atorvastatin 20 mg tablet 20 mg PO DAILY@209911/16/18 05/13/24 History docusate sodium 100 mg tablet 200 mg PO QPM 11/16/18 05/13/24 History sertraline 50 mg tablet 50 mg PO QPM 11/16/18 05/13/24 History donepezil 5 mg tablet 5 mg PO HS 02/09/22 05/13/24 History cranberry extract 500 mg tablet 1,000 mg PO QAM 02/21/24 05/13/24 History ferrous sulfate 325 mg (65 mg 325 mg PO BID 02/21/24 05/13/24 History iron) tablet ibandronate 150 mg tablet 150 mg PO .MONTHLY 02/21/24 05/13/24 History furosemide 20 mg tablet (Lasix) 20 mg PO DAILY PRN edema/swelling 02/28/24 05/13/24 Rx of legs #30 tabs melatonin 3 mg tablet 3 mg PO HS #30 tabs 02/28/24 05/13/24 Rx cyanocobalamin (vitamin B-12) 2,500 mcg PO QAM 04/09/24 05/13/24 History 2,500 mcg sublingual tablet (Vitamin B-12) sennosides 8.6 mg tablet (senna) 8.6 mg PO QAM PRN Constipation 04/09/24 05/13/24 History zolpidem 10 mg tablet 5 mg PO HS PRN Insomnia 04/09/24 05/13/24 History fluticasone propionate 50 2 spray NA BID #16 grams 04/20/24 05/13/24 Rx mcg/actuation nasal spray,suspension diltiazem HCl 240 mg capsule,24 180 mg PO QAM 05/11/24 05/13/24 History hr,extended release (Tiadylt ER) losartan 50 mg tablet 50 mg PO DAILY 05/11/24 05/13/24 History metoprolol tartrate 100 mg tablet 100 mg PO QAM 05/11/24 05/13/24 History pregabalin 100 mg capsule 200 mg PO Q12 05/11/24 05/13/24 History magnesium oxide 400 mg PO QAM 05/13/24 05/13/24 History polyethylene glycol 3350 17 gram 17 g PO DAILY PRN Constipation 05/13/24 05/13/24 History oral powder packet (Miralax) Past Med/Surg History Problem List (Updated 05/14/24 @ 03:26 by Ale Perez DO) Colonic thickening Arterial occlusion, lower extremity (Acute) Contusion of ankle, left (Acute) Contusion of hip, left (Acute) Fall (Acute) Elevated troponin I level (Acute) Abnormal EKG (Acute) Chest pain (Acute) Atypical chest pain Essential hypertension Hypokalemia Aspiration into lower respiratory tract Permanent atrial fibrillation (Acute) Presence of permanent cardiac pacemaker Nausea and vomiting Respiratory alkalosis PND (post-nasal drip) Stroke (Acute) Hypoxia (Acute) Pericardial effusion Thrombocytopenia Female bladder prolapse Acute metabolic encephalopathy UTI (urinary tract infection) Acute diastolic CHF (congestive heart failure) Acute respiratory failure with hypoxemia Elevated troponin Dyspnea Atrial fibrillation Hypokalemia (Acute) Anticoagulation therapy not indicated Dizziness Hypothyroidism DVT prophylaxis Insomnia Depression (Chronic) B12 deficiency Peripheral neuropathy (Chronic) Hypertension (Chronic) 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) Cellulitis of left orbit (Acute) Abdominal pain (Acute) Stomach ulcer (Acute) GERD (gastroesophageal reflux disease) (Chronic) Atrial fibrillation with rapid ventricular response (Chronic) Vertigo (Acute) Weakness (Acute) Medical History Periorbital cellulitis of left eye Hyperlipidemia LDL goal <70 Thoracic back pain CVA (cerebral vascular accident) Epidural hematoma Weight loss, unintentional Tricuspid regurgitation Tachy-jazmine syndrome Pulmonary hypertension Dyslipidemia Cerebrovascular disease Benign hypertension Aortic regurgitation Anxiety disorder Headache Surgical History H/O cervical spine surgery "cervical decompression with evacuation of cervical epidural hematoma 09/22/2012" S/P tonsillectomy H/O: hysterectomy History of bilateral tubal ligation History of appendectomy Family History Other Family history non-contributory Social History Smoking Status: Never smoker Do You Dip or Chew Tobacco: No; Hx Alcohol Use: No Hx Substance Use: No Preferred Language: British Communication Ability: Effective Director Student Union Required: No Beliefs That Will Affect Care: None marital status: / Current Living Situation: Other Current Living Situation Comment: Lives at home with grandson Feels Safe at Home: Yes Safety Concerns: Feels Safe At This Time Assistive Devices: Cane, Walker and Wheelchair Review of Systems Review of Systems: As per above Physical Exam Physical Exam: Constitutional: well-appearing, no acute distress HEENT: NCAT, no conjunctival injection CV: regular rhythm, no murmur appreciated, no LE edema, right LE well perfused, diminished pulses left LE with some coldness, no change in color Resp: CTABL, no wheezes/rales/rhonchi appreciated, no increased work of breathing GI: soft, nondistended, nontender, BS normoactive MSK: no gross deformities appreciated Skin: warm, dry, no rash appreciated Neuro: alert, oriented, no focal neurologic deficit appreciated Results & Data Results & Data Vital Signs (Past 12 Hours) Vital Signs Temp Pulse Pulse Resp BP BP Pulse Ox 05/13/24 20:11 68 24 178/131 H 95 05/13/24 16:54 60 20 96 05/13/24 16:53 37.2 C 74 20 92/52 L 89 L O2 Del Method O2 Flow Rate 05/13/24 20:11 Nasal Cannula 2 05/13/24 16:54 Nasal Cannula 2 05/13/24 16:53 Room Air 2 Supervising Physician Co-Signing Physician Notes Attending addendum: I have physically seen this patient, have supervised the medical residents activities, and agree with the H&P unless as otherwise noted. Assessment and Plan: Peripheral arterial disease- Testing ordered by the ED initially was for CTA left lower extremity, however, radiology commented on right lower extremity as well. Occlusion of left common and external iliac arteries extending through the arteries of the left lower leg, progressed from the 04/09/2024 study. There is only minimal flow noted within branches of the left profunda femoris artery Occlusion of the majority of the right superficial femoral artery with reconstitution of flow within the popliteal artery. Continue aspirin 325 mg by mouth daily Placed on heparin drip per protocol Acetaminophen 1000 mg by mouth every 8 hours as needed for mild pain or fever Dilaudid 0.25 mg IV every 6 hours as needed for moderate pain Dilaudid 0.5 mg IV every 6 hours as needed for severe pain Consult to vascular surgery Masslike thickening and enhancement involving the cecum- Noted on CTA of lower extremities Recommendation for colonoscopy Cervical epidural hematoma- Patient has not been on anticoagulation due to the this history She will need to be on anticoagulation as noted for severe arterial occlusion of lower extremities bilaterally Risk-benefit ratio discussed with family and patient Elevated troponin/permanent atrial fibrillation/hypertension- Initial troponin 18.5, with follow-up 11.4 Continue aspirin, diltiazem, losartan, and metoprolol tartrate Resident Activity Tracking Resident Involvement: Resident Care Provided Care Provided: Adult Hospital Medicine
[2024-05-13] MEDS ORDERED: ZOLPIDEM TARTRATE 5 MG TAB PO PRN (23:54)
[2024-05-14 00:08] VITALS: TEMP 98.1
[2024-05-14] MEDS: HYDROmorphone INJ 0.5 MG/0.5 ML SYR IV PRN ×2 (02:10→09:22)
[2024-05-14] MEDS: HYDROmorphone INJ 0.5 MG/0.5 ML SYR IV STA ×2 (02:43→03:15)
[2024-05-14 03:02] LABS: ANTI-Xa, UFH(UnfractionatedHep 1.45 IU/ml (0.3-0.7)
[2024-05-14 05:21] LABS: Hemoglobin 11.6 g/dl (12.0-16.0); Mean Corpuscular Hemoglobin 28.4 pg (25.0-34.0); Mean Corpuscular Hgb Conc 32.2 g/dL (32.0-36.0); Mean Corpuscular Volume 88.2 fL (80.0-100.0); Mean Platelet Volume 12.3 fL (9.4-12.4); Platelet Count 131 K/uL (130-400); RDW Coefficient of Variation 15.6 % (11.5-14.5); RDW Standard Deviation 50.9 fL (36.4-46.3); Red Blood Count 4.08 M/uL (4.20-5.40); White Blood Count 7.62 K/ul (4.8-10.8)
[2024-05-14 05:39] LABS: Albumin Globulin Ratio 1.9 (0.9-2); Albumin Level 3.8 gm/dl (3.4-5.0); BUN Creatinine Ratio 18.5 (10-20); Bilirubin,Total 0.4 mg/dl (0.2-1.0); Calcium 8.4 mg/dl (8.6-10.3); Creatinine Clr Calc Pharmacy 50.4 ml/min; Est GFR (African American) 92.5 ml/min; Est GFR (Non-African American) 79.8 ml/min; Total Protein 5.8 gm/dl (6.0-8.3)
[2024-05-14 06:23] LABS: ANTI-Xa, UFH(UnfractionatedHep 0.84 IU/ml (0.3-0.7)
[2024-05-14] MEDS: LEVOTHYROXINE SODIUM 75 MCG TABLET PO SCH (06:30)
--- NOTE | 2024-05-14 06:45 | Billing Data ---
Date of Service May 14, 2024 Coding Level of Care Code 62718 INT INP/OBS CARE
[2024-05-14 07:55] LABS: ANTI-Xa, UFH(UnfractionatedHep 0.33 IU/ml (0.3-0.7)
[2024-05-14] MEDS: CYANOCOBALAMIN (B-12) 2,500 MCG TABLET PO SCH (09:04)
[2024-05-14] MEDS: FERROUS SULFATE 325 MG TAB PO SCH (09:04)
[2024-05-14] MEDS: dilTIAZem HCL 180 MG CAPCR PO SCH (09:04)
[2024-05-14] MEDS: FAMOTIDINE 40 MG TABLET PO SCH (09:05)
[2024-05-14] MEDS: FLUTICASONE PROPIONATE NA SPR 16 GM BTL SCH (09:05)
[2024-05-14] MEDS: LOSARTAN POTASSIUM 50 MG TAB PO SCH (09:05)
[2024-05-14] MEDS: MAGNESIUM OXIDE 400 MG TAB PO SCH (09:05)
[2024-05-14] MEDS: PREGABALIN 100 MG CAP PO SCH (09:06)
[2024-05-14] MEDS: PANTOprazole 40 MG TAB PO SCH (09:06)
[2024-05-14] MEDS: METOPROLOL TARTRATE 100 MG TAB PO SCH (09:06)
[2024-05-14 10:30] VITALS: BP 174/61; PULSE 69; RESP 12; O2SAT 94
--- NOTE | 2024-05-14 10:49 | Discharge Summary ---
Date of Service May 14, 2024 Admission HPI Per Admitting Provider 88 year old female with a past medical history of Afib, HFpEF, hypothyroidism, insomnia, HLD, pacemaker placement, and GERD presenting with left LE pain. Daughter and son in law present at bedside and help to provide history. Worsening left lower extremity pain- unclear when it start but likely weeks to months- acutely worse this afternoon. Pain/numbness in majority of left leg- worst in foot. Was evaluated earlier this week in the ED after a fall and was having some left hip/ankle pain at that time,left AMA. ED Course Significant for: LE CTA with occlusion of the left common and external iliac arteries extending through the arteries of the left lower leg. Occlusion involves the majority of the right superficial femoral artery with reconstitution of flow within the popliteal artery. Masslike thickening and enhancement involves the cecum. Correlation with colonoscopy recommended. Started on Heparin gtt. Admission Exam (Per Admitting) Constitutional The patient is awake, alert and oriented 3, well developed and well nourished, normocephalic and atraumatic, lying in bed and in no acute distress. HEENT--PERRL, EOMI, mucous membranes and oropharynx mildly dry Neck--supple. No JVD. No bruits. Thyroid normal, trachea midline, no adenopathy. Heart--normal S1 and S2. No murmurs, rubs or gallops. Lungs--clear bilaterally, no respiratory distress, no accessory muscle use. Abdomen--normal bowel sounds and soft. Extremities--no cyanosis or clubbing. No edema. Dermatologic--normal skin turgor, normal color, no abnormal lymph nodes, no rash. Neurologic--cranial nerves II through XII grossly intact. Rheumatologic--normal range of motion. Psychiatric--normal affect. Discharge Data Consultations 05/13/24 19:38 ED Decision to Admit Stat 05/13/24 21:58 Consult Vascular Surgery Routine Hospital Course (1) Arterial occlusion, lower extremity: - Noted on CTA-> will likely need CTA aorta with runoff - started on Heparin gtt-> plan to continue - continue aspirin - does have a history of cervical epidural hematoma, which is why she is not on anticoagulation for her afib-> watch closely on heparin gtt. Discussed risk/benefit with pt+ family - No vascular surgery coverage over the weekend -Transfer to [facility] (2) Elevated troponin I level: - Mildly elevated troponin 18.5-> 11.4 - No ischemic changes on EKG - denies chest pain (3) Colonic thickening: - incidental on CTA - denies dark/bloody BM - will need GI f/u, likely colonoscopy (4) Permanent atrial fibrillation: - noted history - not on anticoagulation due to history of cervical epidural hematoma - continue Cardizem, metoprolol for rate control Plan [facility] Coding Level of Care Code 72113 INP/OBS DISCH >30 MIN Diagnoses Arterial occlusion, lower extremity I70.209 Elevated troponin I level R79.89 Colonic thickening K63.9 Permanent atrial fibrillation I48.21 Time Spent (min) 35
--- NOTE | 2024-05-14 12:20 | Electrocardiogram Report ---
Test Reason : Blood Pressure : */* mmHG Vent. Rate : 63 BPM Atrial Rate : 60 BPM P-R Int : * ms QRS Dur : 174 ms QT Int : 490 ms P-R-T Axes : * -69 102 degrees QTcB Int : 501 ms Ventricular-paced rhythm Abnormal ECG When compared with ECG of 11-May-2024 11:57, Vent. rate has decreased by 23 bpm Confirmed by Tommy Mackay ([id number]) on 05/14/2024 12:19:59 PM Referred By: REFERRED SELF Confirmed By: Tommy Mackay
[2024-05-14] MEDS ORDERED: SERTRALINE HCL 50 MG TABLET PO SCH (21:00)
[2024-05-14] MEDS ORDERED: ASPIRIN 325 MG ECTAB PO SCH (21:00)
[2024-05-14] MEDS ORDERED: ATORVASTATIN 20 MG TAB PO SCH (21:00)
[2024-05-14] MEDS ORDERED: MELATONIN 3 MG TAB PO SCH (21:00)
[2024-05-14] MEDS ORDERED: DOCUSATE SODIUM 100 MG CAP PO SCH (21:00)
[2024-05-14] MEDS ORDERED: DONEPEZIL HCL 5 MG TAB PO SCH (21:00)
--- NOTE | 2024-05-15 10:08 | Consultation ---
Date of Consultation May 15, 2024 History of Present Illness Reason for Consultation: transferred before being seen Attending Physician: Krysta Young MD Allergies Allergy/AdvReac Type Severity Reaction Status Date / Time oxycodone AdvReac Intermediate HALLUCINATI Verified 05/13/24 20:37 ONS morphine AdvReac Unknown DELIRIUM Verified 05/13/24 20:37 Home Medications Medication Instructions Recorded Confirmed Type aspirin 325 mg tablet 325 mg PO DAILY@2100 05/06/18 05/13/24 History famotidine 40 mg tablet (Pepcid) 40 mg PO QAM 05/06/18 05/13/24 History levothyroxine 75 mcg tablet 75 mcg PO QAM 05/06/18 05/13/24 History (Synthroid) omeprazole 40 mg capsule,delayed 40 mg PO QAM 05/06/18 05/13/24 History release atorvastatin 20 mg tablet 20 mg PO DAILY@2100 11/16/18 05/13/24 History docusate sodium 100 mg tablet 200 mg PO QPM 11/16/18 05/13/24 History sertraline 50 mg tablet 50 mg PO QPM 11/16/18 05/13/24 History donepezil 5 mg tablet 5 mg PO HS 02/09/22 05/13/24 History cranberry extract 500 mg tablet 1,000 mg PO QAM 02/21/24 05/13/24 History ferrous sulfate 325 mg (65 mg 325 mg PO BID 02/21/24 05/13/24 History iron) tablet ibandronate 150 mg tablet 150 mg PO .MONTHLY 02/21/24 05/13/24 History furosemide 20 mg tablet (Lasix) 20 mg PO DAILY PRN edema/swelling 02/28/24 05/13/24 Rx of legs #30 tabs melatonin 3 mg tablet 3 mg PO HS #30 tabs 02/28/24 05/13/24 Rx cyanocobalamin (vitamin B-12) 2,500 mcg PO QAM 04/09/24 05/13/24 History 2,500 mcg sublingual tablet (Vitamin B-12) sennosides 8.6 mg tablet (senna) 8.6 mg PO QAM PRN Constipation 04/09/24 05/13/24 History zolpidem 10 mg tablet 5 mg PO HS PRN Insomnia 04/09/24 05/13/24 History fluticasone propionate 50 2 spray NA BID #16 grams 04/20/24 05/13/24 Rx mcg/actuation nasal spray,suspension diltiazem HCl 240 mg capsule,24 180 mg PO QAM 05/11/24 05/13/24 History hr,extended release (Tiadylt ER) losartan 50 mg tablet 50 mg PO DAILY 05/11/24 05/13/24 History metoprolol tartrate 100 mg tablet 100 mg PO QAM 05/11/24 05/13/24 History pregabalin 100 mg capsule 200 mg PO Q12 05/11/24 05/13/24 History magnesium oxide 400 mg PO QAM 05/13/24 05/13/24 History polyethylene glycol 3350 17 gram 17 g PO DAILY PRN Constipation 05/13/24 05/13/24 History oral powder packet (Miralax) Patient History Medical History Periorbital cellulitis of left eye Hyperlipidemia LDL goal <70 Thoracic back pain CVA (cerebral vascular accident) Epidural hematoma Weight loss, unintentional Tricuspid regurgitation Tachy-jazmine syndrome Pulmonary hypertension Dyslipidemia Cerebrovascular disease Benign hypertension Aortic regurgitation Anxiety disorder Headache Surgical History H/O cervical spine surgery "cervical decompression with evacuation of cervical epidural hematoma 09/22/2012" S/P tonsillectomy H/O: hysterectomy History of bilateral tubal ligation History of appendectomy Family History Other Family history non-contributory Social History Smoking Status: Never smoker Do You Dip or Chew Tobacco: No; Hx Alcohol Use: No Hx Substance Use: No Preferred Language: Burmese Communication Ability: Effective Intelligence Consultant Required: No Beliefs That Will Affect Care: None marital status: / Current Living Situation: Other Current Living Situation Comment: Lives at home with grandson Feels Safe at Home: Yes Assistive Devices: Cane, Walker and Wheelchair
== END 2024-05-14 10:33 | disposition short-term general hospital (02) | DRG 300 ==
LOC: ED 16:52 → SUATTDRO 20:28 → EDINP 20:28

== ENCOUNTER 2024-08-31 10:15 | Observation (INO) ==
--- NOTE | 2024-08-31 10:19 | Emergency Department Note ---
Impression & Plan Acute hyperventilation syndrome, Chest pain, Acute respiratory alkalosis ED Provider Note NAME: CHARLES WONG AGE: 88 SEX: F : 1935 ARRIVES VIA: Ambulance INFORMANT: Patient, daughter ED PROVIDER(S): Noam Rocha MD CHIEF COMPLAINT: Chest pain, shortness of breath MEDICAL DECISION MAKING: Patient presents due to concern of chest pain shortness of breath and in respiratory distress. The patient was placed on CPAP upon arrival. Patient reportedly is taking Eliquis due to concerns for a recent arterial occlusion in the left lower extremity from April. This had been previously contraindicated due to concerns for a prior epidural hematoma. The daughter confirmed this when she arrived that she is taking the Eliquis. Patient did convey to myself that she did not want to be placed on a ventilator no CPR. I did inform the daughter of this at the bedside and she was also comfortable with this plan. Patient's EKG did show concerning findings in the inferior and lateral leads. View of the patient's prior nonpaced EKGs at least as recently as May 11, 2024 do show that the patient does have some T wave inversions noted at that time. They are most prominent in the lateral and inferior leads. Patient in intermittent A-fib currently with intermittent paced complexes. [id number] ultrasound was performed. The patient does appear to have more dilated LV trace pericardial effusion no evidence of tamponade no RV bowing. This as well as the patient's Eliquis use believe PE to be less likely. Patient does appear to have B-lines left lung compared to the right and does have some crackles. Patient has had cough may have an infectious component. Patient does not have any significant lower extremity edema and IVC does not appear to be plethoric. Patient was ordered a Xopenex treatment and then also ordered BioFire VBG cultures and lactic acid. Patient was also ordered 0.25 of IV Ativan to help patient tolerate the BiPAP as I do believe the patient would benefit from this due to concerns for the patient's work of breathing. This is also done as the patient is requesting to not have advanced airway placed at this time. Patient's blood work showed a normal white count H&H and platelet count. The patient's kidney function is unremarkable. Initial VBG with the patient 755 with pCO2 of 29 respiratory alkalosis secondary to tachypnea. The patient troponin negative. Initial BNP 154. TSH normal. BioFire negative. Chest x- ray without obvious pneumonia left lower pleural effusion noted. Upon subsequent reassessment the patient has had significant improvement in her work of breathing. There may be an anxiety component but the patient does have significant medical comorbidities that do believe the patient would benefit from inpatient treatment. I did speak the on-call hospital service Dr. Raza and the patient was admitted to the medicine service. Urinalysis obtained after the time of admission. Noted to have leukocyte esterase and bacteria. Treatment deferred to inpatient service at this time. Critical Care: I have personally spent 85 minutes of critical care time in direct management of this patient. This includes bedside care, interpretation of diagnostic studies, and testing, discussion with consultants, patient, and family members, and other require inpatient management activities. This 85 minutes is in excess of all separately billable procedures. Procedures: Limited Point of Care Cardiac Ultrasound performed by me: Indication: Shortness of breath Findings: Limited echocardiography revealed trace pericardial effusion without tamponade physiology. No obvious RV bowing HR 100s. Additional findings: B- lines noted in the left chest. IVC does not appear to be plethoric. Impression: Pericardial effusion without tamponade physiology Discussion w/ other healthcare providers: Dr. Raza inpatient medicine service Prior /Outside records reviewed: I reviewed part of a discharge summary from Dr. Raz Gaming from May 14, 2024. Known history of A-fib heart failure with preserved ejection fraction hypothyroidism insomnia HLD pacemaker and reflux who presented with left lower extremity pain. Patient's CTA of the left lower extremity showed occlusion left common and external iliac arteries patient was started on heparin at that time. Patient with a history of cervical epidural hematoma which is why she is not on anticoagulation for A-fib patient was to be transferred to [facility]. I did review part of a cardiology consultation note from March 2024. Patient with history of permanent A-fib pacemaker hypertension. Patient known history of A-fib based on this notes anticoagulation contraindicated due to epidural hematoma on diltiazem for rate control. 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 I did review part of an echo report from April 10, 2024 small noncircumferential pericardial effusion unchanged in size character compared with February. LV function normal with EF of 60 to 65%. Differential diagnosis: Cardiac ischemia, aortic dissection, pulmonary embolism, pneumothorax, pneumonia, pericarditis, myocarditis, GERD, cholecystitis, pancreatitis, musculoskeletal, as well as other pathologies were considered. Diagnostics, as interpreted by me: ECG: A-fib with V paced complexes, possible LVH, normal axis T wave versions inferiorly and laterally. Patient did have T wave inversions in same areas from comparison EKG from May 11, 2024. Cardiac monitoring: An order was placed for continuous cardiac monitoring. The monitor shows a rate of 95 with A-fib occasionally paced rhythm. Patient was placed on pulse oximetry Medical decision rules: None Imaging studies: I informally interpreted the patient's with formal report to follow. HPI: Patient presents due to concern for chest pains and shortness of breath. The patient reportedly developed some of her symptoms this morning. When EMS arrived the patient was 95% on room air but did have increased work of breathing and was placed on CPAP. The patient states that her shortness of breath and chest pain have improved. The patient states that her chest pain is still present but is achy and left-sided. Nonradiating. Patient reportedly refused aspirin and route. She did not take any of her morning medications prior to being sent here today. No reported falls or trauma. The patient has had cough that has been productive. Patient states she has had diarrhea but no vomiting. Patient denies any smoking history. EMS also reports that she did have shallow breaths. No treatments given prior to arrival. Patient does feel improved after being placed on the CPAP. PAST MEDICAL HISTORY: See Below PAST SURGICAL HISTORY: See Below SOCIAL HISTORY: See Below HOME MEDICATIONS: See Below ALLERGIES: See Below VITALS: See Below PHYSICAL EXAMINATION: GENERAL: Severe distress, increased work of breathing and tachypnea. EYE EXAM: Normal conjunctiva. PERRL, no anisocoria and EOM's grossly intact w/o pain. OROPHARYNX: Moist mucus membranes, grossly normal dentition. NECK: Trachea midline, no stridor. LUNGS: Scant crackles noted. Normal chest wall mechanics. HEART: NSR, no MRG. ABDOMEN: Abdomen soft, non-tender, no masses, no rebound or guarding. BACK: No CVA TTP. SKIN: No rashes and no bruising. UPPER EXTREMITIES: Upper extremities are grossly normal. LOWER EXTREMITIES: Grossly normal, no edema. NEURO EXAM: A&O x3, cranial nerves II-XII grossly intact, normal speech, moves all 4 extremities. Past Med/Surg History Problem List (Updated 08/31/24 @ 17:58 by Noam Rocha MD) Acute respiratory alkalosis (Acute) Chest pain (Acute) History of arterial occlusion Acute hyperventilation syndrome (Acute) Acute hypoxic respiratory failure Colonic thickening Arterial occlusion, lower extremity (Acute) Essential hypertension Permanent atrial fibrillation (Acute) Presence of permanent cardiac pacemaker PND (post-nasal drip) Stroke (Acute) Pericardial effusion Thrombocytopenia Female bladder prolapse Acute metabolic encephalopathy UTI (urinary tract infection) Acute diastolic CHF (congestive heart failure) Elevated troponin Hypokalemia (Acute) Anticoagulation therapy not indicated Dizziness Hypothyroidism DVT prophylaxis Insomnia Depression (Chronic) B12 deficiency Peripheral neuropathy (Chronic) 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) Cellulitis of left orbit (Acute) Stomach ulcer (Acute) GERD (gastroesophageal reflux disease) (Chronic) Vertigo (Acute) Weakness (Acute) Medical History Aspiration into lower respiratory tract Periorbital cellulitis of left eye Hyperlipidemia LDL goal <70 Thoracic back pain CVA (cerebral vascular accident) Epidural hematoma Weight loss, unintentional Tricuspid regurgitation Tachy-jazmine syndrome Pulmonary hypertension Dyslipidemia Cerebrovascular disease Benign hypertension Aortic regurgitation Anxiety disorder Headache Surgical History H/O cervical spine surgery "cervical decompression with evacuation of cervical epidural hematoma 09/22/2012" S/P tonsillectomy H/O: hysterectomy History of bilateral tubal ligation History of appendectomy Family History Other Family history non-contributory Social History Smoking Status: Never smoker Do You Dip or Chew Tobacco: No; Hx Alcohol Use: No Hx Substance Use: No Preferred Language: Peruvian Communication Ability: Effective Provider Network Manager Required: No Beliefs That Will Affect Care: None marital status: / Current Living Situation: Alone Current Living Situation Comment: Lives at home with grandson Other Information That Helps Us Care for You: No Feels Safe at Home: Yes Assistive Devices: BiPap and Walker Allergies Allergies Allergy/AdvReac Type Severity Reaction Status Date / Time oxycodone AdvReac Intermediate HALLUCINATI Verified 08/31/24 13:03 ONS morphine AdvReac Unknown DELIRIUM Verified 08/31/24 13:03 Home Meds Home Medications Medication Instructions Recorded Confirmed omeprazole 40 mg capsule,delayed 40 mg PO QAM 05/06/18 08/31/24 release atorvastatin 20 mg tablet 20 mg PO HS 11/16/18 08/31/24 docusate sodium 100 mg tablet 200 mg PO QPM 11/16/18 08/31/24 sertraline 50 mg tablet 50 mg PO QAM 11/16/18 08/31/24 donepezil 5 mg tablet 5 mg PO HS 02/09/22 08/31/24 cranberry extract 500 mg tablet 1,000 mg PO QAM 02/21/24 08/31/24 ibandronate 150 mg tablet 150 mg PO MONTHLY 02/21/24 08/31/24 cyanocobalamin (vitamin B-12) 5,000 mcg PO QAM 04/09/24 08/31/24 2,500 mcg sublingual tablet (Vitamin B-12) sennosides 8.6 mg tablet (senna) 8.6 mg PO QAM PRN Constipation 04/09/24 08/31/24 zolpidem 10 mg tablet 5 mg PO HS PRN Insomnia 04/09/24 08/31/24 metoprolol tartrate 100 mg tablet 100 mg PO BID 05/11/24 08/31/24 magnesium oxide 400 mg PO QAM 05/13/24 08/31/24 polyethylene glycol 3350 17 gram 17 g PO DAILY PRN Constipation 05/13/24 08/31/24 oral powder packet (Miralax) apixaban 2.5 mg tablet (Eliquis) 2.5 mg PO BID 08/31/24 08/31/24 diltiazem HCl 180 mg capsule,24 360 mg PO QAM 08/31/24 08/31/24 hr,extended release (Tiadylt ER) famotidine 20 mg tablet 20 mg PO HS 08/31/24 08/31/24 isosorbide mononitrate 30 mg 30 mg PO QAM 08/31/24 08/31/24 tablet,extended release 24 hr levothyroxine 100 mcg tablet 100 mcg PO QAM 08/31/24 08/31/24 melatonin 3 mg tablet 3 mg PO HS PRN Insomnia 08/31/24 08/31/24 Previous Rx's Medication Instructions Recorded furosemide 20 mg tablet (Lasix) 20 mg PO DAILY PRN edema/swelling 02/28/24 of legs #30 tabs Results & Data (ED) Vital Signs Vital Signs - 24 hr 08/31/24 10:20 08/31/24 10:23 08/31/24 10:26 Temperature Temperature Source Pulse Rate 106 H 101 H Pulse Rate [Apical] Pulse Rate from SpO2 Sensor Pulse Rhythm Pulse Strength Respiratory Rate 38 H Respiratory Effort / Characteristics Spontaneous Labored Short of Breath Respiratory Depth Shallow Respiratory Pattern Tachypnea Blood Pressure 167/102 H Blood Pressure Mean 122 Blood Pressure Position Pulse Oximetry 99 Oxygen Delivery Method Oxygen Flow Rate Fraction of Inspired Oxygen 30 Sepsis Recent Fever Within 48 Hours Sepsis New/Unexplained Change in Mental Status Sepsis Action Taken by Nursing Pulse Oximetry Post Tiitration 08/31/24 10:27 08/31/24 10:27 08/31/24 10:27 Temperature Temperature Source Pulse Rate 101 H Pulse Rate [Apical] Pulse Rate from SpO2 Sensor Pulse Rhythm Regular Pulse Strength Respiratory Rate Respiratory Effort / Characteristics Labored Respiratory Depth Shallow Respiratory Pattern Rapid/Shallow Blood Pressure Blood Pressure Mean Blood Pressure Position Pulse Oximetry 99 Oxygen Delivery Method BiPAP BiPAP BiPAP Oxygen Flow Rate Fraction of Inspired Oxygen Sepsis Recent Fever Within 48 Hours Sepsis New/Unexplained Change in Mental Status Sepsis Action Taken by Nursing Pulse Oximetry Post Tiitration 99 08/31/24 10:28 08/31/24 10:40 08/31/24 10:42 Temperature 36.3 C L Temperature Source Axillary Pulse Rate 101 H 107 H Pulse Rate [Apical] 106 H Pulse Rate from SpO2 Sensor 107 H Pulse Rhythm Regular Pulse Strength Normal Respiratory Rate 32 H 43 H 28 H Respiratory Effort / Characteristics Labored Spontaneous Accessory Muscle Use Labored Retracting Short of Breath Respiratory Depth Respiratory Pattern Rapid/Shallow Blood Pressure 167/102 H Blood Pressure Mean 123 Blood Pressure Position Lying Pulse Oximetry 99 98 100 Oxygen Delivery Method CPAP BiPAP Oxygen Flow Rate Fraction of Inspired Oxygen 30 Sepsis Recent Fever Within 48 Hours No Sepsis New/Unexplained Change in Mental Status N/A Sepsis Action Taken by Nursing Physician Notified Pulse Oximetry Post Tiitration 08/31/24 10:47 08/31/24 10:57 08/31/24 11:30 Temperature Temperature Source Pulse Rate 106 H 98 H Pulse Rate [Apical] Pulse Rate from SpO2 Sensor 116 H 102 H Pulse Rhythm Pulse Strength Respiratory Rate 31 H 25 H Respiratory Effort / Characteristics Respiratory Depth Respiratory Pattern Blood Pressure 134/87 186/103 H Blood Pressure Mean 116 130 Blood Pressure Position Pulse Oximetry 99 99 Oxygen Delivery Method BiPAP Oxygen Flow Rate 30 Fraction of Inspired Oxygen Sepsis Recent Fever Within 48 Hours Sepsis New/Unexplained Change in Mental Status Sepsis Action Taken by Nursing Pulse Oximetry Post Tiitration 08/31/24 12:00 08/31/24 12:30 08/31/24 13:00 Temperature Temperature Source Pulse Rate 100 H 109 H 103 H Pulse Rate [Apical] Pulse Rate from SpO2 Sensor 98 H 116 H Pulse Rhythm Pulse Strength Respiratory Rate 23 24 25 H Respiratory Effort / Characteristics Respiratory Depth Respiratory Pattern Blood Pressure 202/110 H 211/92 H 205/117 H Blood Pressure Mean 140 131 162 Blood Pressure Position Pulse Oximetry 96 97 Oxygen Delivery Method BiPAP BiPAP BiPAP Oxygen Flow Rate 30 30 30 Fraction of Inspired Oxygen Sepsis Recent Fever Within 48 Hours Sepsis New/Unexplained Change in Mental Status Sepsis Action Taken by Nursing Pulse Oximetry Post Tiitration Home Medications Current Medication List: was personally reviewed by me Laboratory Data Attestation: I reviewed the patient's lab results. 08/31/24 10:39 08/31/24 10:39 Lab Results 08/31/24 08/31/24 08/31/24 Range/Units 10:39 10:40 11:09 WBC 8.04 (4.8-10.8) K/ul RBC 4.94 (4.20-5.40) M/uL Hgb 13.8 (12.0-16.0) g/dl Hct 41.5 (37.0-47.0) % MCV 84.0 (80.0-100.0) fL MCH 27.9 (25.0-34.0) pg MCHC 33.3 (32.0-36.0) g/dL RDW Std Deviation 46.0 (36.4-46.3) fL RDW Coeff of Alfredo 15.2 H (11.5-14.5) % Plt Count 219 (130-400) K/uL MPV 12.5 H (9.4-12.4) fL Immature Gran % (Auto) 0.2 % Neut % (Auto) 57.5 % Lymph % (Auto) 33.1 % [place] % (Auto) 7.6 % Eos % (Auto) 0.7 % Baso % (Auto) 0.9 % Neut # (Auto) 4.62 (1.40-6.50) K/uL Lymph # (Auto) 2.66 (1.20-3.40) K/uL [place] # (Auto) 0.61 H (0.11-0.59) K/uL Eos # (Auto) 0.06 (0.00-0.50) K/uL Baso # (Auto) 0.07 (0.00-0.20) K/uL Immature Gran # (Auto) 0.02 (0.01-0.20) K/uL PT 11.4 (9.0-12.0) Seconds INR 1.1 (0.9-1.1) APTT 27 (21-31) Seconds PTT Ratio 1.0 VBG pH 7.55 H (7.36-7.41) VBG pCO2 29 L (38-50) mmHg VBG pO2 < 20 mmHg VBG HCO3 25 mmol/L VBG O2 Saturation < 60.0 % VBG Base Excess 3.8 mEq/L Sodium 144 (136-145) mmol/L Potassium 3.5 (3.5-5.1) mmol/L Chloride 106 (98-107) mmol/L Carbon Dioxide 25 (21-32) mmol/L Anion Gap 13 H (3-11) BUN 17 (6-23) mg/dl Creatinine 0.80 (0.6-1.2) mg/dl Est Cr Clr Drug Dosing 38.0 ml/min eGFR 71.27 BUN/Creatinine Ratio 21.3 H (10-20) Glucose 83 (70-99(Fasting)) mg/dl Lactate 1.7 (0.4-2.0) mmol/L Calcium 10.1 (8.6-10.3) mg/dl Total Bilirubin 0.8 (0.2-1.0) mg/dl AST 25 (13-39) U/L ALT 14 (7-52) U/L Alkaline Phosphatase 75 (34-104) U/L Troponin I High Sens 12.9 (0-14) pg/ml B-Natriuretic Peptide 154 H (0-100) pg/ml Total Protein 7.0 (6.0-8.3) gm/dl Albumin 4.6 (3.4-5.0) gm/dl Globulin 2.4 L (2.5-4.0) gm/dl Albumin/Globulin Ratio 1.9 (0.9-2) Lipase 9 L (11-82) U/L Adenovirus (PCR) Not Detected (NotDetected) B. pertussis DNA (PCR) Not Detected (NotDetected) B.parapertussis DNA PCR Not Detected (NotDetected) C. pneumoniae DNA (PCR) Not Detected (NotDetected) Coronavirus OC43 (PCR) Not Detected (NotDetected) Coronavirus HKU1 (PCR) Not Detected (NotDetected) Coronavirus 229E (PCR) Not Detected (NotDetected) SARS-CoV-2 (PCR) Not Detected (NotDetected) Coronavirus NL63 (PCR) Not Detected (NotDetected) Human Metapneumovir PCR Not Detected (NotDetected) Influenza Type A (PCR) Not Detected (NotDetected) Influenza Type B (PCR) Not Detected (NotDetected) M. pneumoniae (PCR) Not Detected (NotDetected) Parainfluenza 1 (PCR) Not Detected (NotDetected) Parainfluenza 2 (PCR) Not Detected (NotDetected) Parainfluenza 3 (PCR) Not Detected (NotDetected) Parainfluenza 4 (PCR) Not Detected (NotDetected) RSV (PCR) Not Detected (NotDetected) Entero/Rhino (PCR) Not Detected (NotDetected) Administered Medications Apixaban (Apixaban 2.5 Mg Tab) 2.5 mg PO BID ANDRA Stop: 09/30/24 16:59 Last Admin: 08/31/24 17:21 Dose: 2.5 mg Documented By: JAKE Levothyroxine Sodium (Levothyroxine Sodium 100 Mcg Tablet) 100 mcg PO DAILYBB [facility] Stop: 09/30/24 16:42 Last Admin: 08/31/24 17:22 Dose: 100 mcg Documented By: JAKE Losartan Potassium (Losartan Potassium 50 Mg Tab) 50 mg PO QAM ANDRA Stop: 09/30/24 11:59 Last Admin: 08/31/24 12:56 Dose: 50 mg Documented By: [facility] Sertraline HCl (Sertraline Hcl 50 Mg Tablet) 50 mg PO QAM ANDRA Stop: 09/30/24 16:42 Last Admin: 08/31/24 17:23 Dose: 50 mg Documented By: [facility] Discontinued Medications Diltiazem HCl (Diltiazem Hcl 180 Mg Capcr) 360 mg PO ONE ONE Stop: 08/31/24 16:44 Last Admin: 08/31/24 17:19 Dose: 360 mg Documented By: [facility] [place] Furosemide (Furosemide Inj 20 Mg/2 Ml Vial) 10 mg IV ONE ONE Stop: 08/31/24 11:59 Last Admin: 08/31/24 12:21 Dose: 10 mg Documented By: [facility] Isosorbide Mononitrate (Isosorbide [place] Extended Rel 30 Mg Tabcr) 30 mg PO NOW ONE Stop: 08/31/24 16:44 Last Admin: 08/31/24 17:22 Dose: 30 mg Documented By: [facility] [place] Levalbuterol HCl (Levalbuterol 1.25 Mg/3 Ml Neb) 1.25 mg NEB NOW STA Stop: 08/31/24 10:33 Last Admin: 08/31/24 10:37 Dose: 1.25 mg Documented By: JALEN Lorazepam (Lorazepam 2 Mg/1 Ml Vial) 0.25 mg IV NOW STA Stop: 08/31/24 10:44 Last Admin: 08/31/24 10:48 Dose: 0.25 mg Documented By: Joseph Metoprolol Tartrate (Metoprolol Tartrate 100 Mg Tab) 100 mg PO NOW STA Stop: 08/31/24 11:59 Last Admin: 08/31/24 12:57 Dose: 100 mg Documented By: [facility] Pantoprazole Sodium (Pantoprazole 40 Mg Tab) 40 mg PO NOW STA Stop: 08/31/24 16:44 Last Admin: 08/31/24 17:22 Dose: 40 mg Documented By: [facility] [place] Imaging Data Radiologist's Impression: Chest X-Ray 08/31/24 10:26 XR chest 1V portable CLINICAL HISTORY: Chest pain, nonspecific COMPARISON STUDY: Chest radiograph and chest CT August 09, 2024. FINDINGS: A left subclavian pacer is in place. Cardiomegaly is unchanged. There is no evidence for pulmonary edema. Skin folds project over the left chest. A small left pleural effusion is unchanged. There is no consolidation to suggest pneumonia. Mediastinal contours are stable. IMPRESSION: 1. Cardiomegaly without evidence for pulmonary edema. 2. No change in a small left pleural effusion. ACT 112: Negative or not required by law. Electronically signed by: Joseluis Sanchez M.D. 08/31/2024 11:07 AM Discharge Plan Visit Data Chief Complaint: Shortness of Breath/Dyspnea Stated Complaint: CHEST PAIN ED Provider: Noam Rocha Discharge Problem: Acute hyperventilation syndrome, Chest pain, Acute respiratory alkalosis Patient Disposition: Admitted As Inpatient Discharge Instructions Interventions: ED Discharge Assessment Last Done: 08/31/24 15:45 Discharge Problem: Chest pain Qualifiers: Chest pain type: unspecified Qualified Code(s): R07.9 - Chest pain, unspecified
[2024-08-31] MEDS: LEVALBUTEROL 1.25 MG/3 ML NEB NEB STA (10:37)
[2024-08-31] MEDS: LORazepam 2 MG/1 ML VIAL IV STA (10:48)
[2024-08-31 10:56] LABS: Base Excess VBG 3.8 mEq/L; HCO3 VBG 25 mmol/L; Oxygen Saturation VBG < 60.0 %; PCO2 VBG 29 mmHg (38-50); PO2 VBG < 20 mmHg; pH VBG 7.55 (7.36-7.41)
[2024-08-31 11:04] LABS: Basophils # (auto) 0.07 K/uL (0.00-0.20); Basophils % (auto) 0.9 %; Eosinophils # (auto) 0.06 K/uL (0.00-0.50); Eosinophils % (auto) 0.7 %; Hematocrit (blood only) 41.5 % (37.0-47.0); Hemoglobin 13.8 g/dl (12.0-16.0); Immature Granulocytes # (auto) 0.02 K/uL (0.01-0.20); Immature Granulocytes % (auto) 0.2 %; Lymphocytes # (auto) 2.66 K/uL (1.20-3.40); Lymphocytes % (auto) 33.1 %; Mean Corpuscular Hemoglobin 27.9 pg (25.0-34.0); Mean Corpuscular Hgb Conc 33.3 g/dL (32.0-36.0); Mean Platelet Volume 12.5 fL (9.4-12.4); Monocytes # (auto) 0.61 K/uL (0.11-0.59); Monocytes % (auto) 7.6 %; Neutrophils # (auto) 4.62 K/uL (1.40-6.50); Neutrophils % (auto) 57.5 %; Platelet Count 219 K/uL (130-400); RDW Coefficient of Variation 15.2 % (11.5-14.5); Red Blood Count 4.94 M/uL (4.20-5.40); White Blood Count 8.04 K/ul (4.8-10.8)
--- NOTE | 2024-08-31 11:09 | XRay Report ---
XR chest 1V portable CLINICAL HISTORY: Chest pain, nonspecific COMPARISON STUDY: Chest radiograph and chest CT August 09, 2024. FINDINGS: A left subclavian pacer is in place. Cardiomegaly is unchanged. There is no evidence for pu lmonary edema. Skin folds project over the left chest. A small left pleural effusion is unchanged. Th ere is no consolidation to suggest pneumonia. Mediastinal contours are stable. IMPRESSION: 1. Cardiomegaly without evidence for pulmonary edema. 2. No change in a small left pleural effusion. ACT 112: Negative or not required by law. Electronically signed by: Joseluis Sanchez M.D. 08/31/2024 11:07 AM
[2024-08-31 11:40] LABS: Albumin Globulin Ratio 1.9 (0.9-2); Albumin Level 4.6 gm/dl (3.4-5.0); BUN Creatinine Ratio 21.3 (10-20); Bilirubin,Total 0.8 mg/dl (0.2-1.0); Calcium 10.1 mg/dl (8.6-10.3); Globulin 2.4 gm/dl (2.5-4.0); INR 1.1 (0.9-1.1); Partial Thromboplastin Time 27 Seconds (21-31); Potassium 3.5 mmol/L (3.5-5.1); Prothrombin Time 11.4 Seconds (9.0-12.0)
[2024-08-31 11:46] LABS: Troponin I High Sensitivity 12.9 pg/ml (0-14)
[2024-08-31 12:05] LABS: Adenovirus PCR Not Detected (NotDetected); Bordetella parapertussis PCR Not Detected (NotDetected); Bordetella pertussis PCR Not Detected (NotDetected); Chlamydia pneumoniae PCR Not Detected (NotDetected); Coronavirus 229E PCR Not Detected (NotDetected); Coronavirus CoV-2 (COVID19)PCR Not Detected (NotDetected); Coronavirus HKU1 PCR Not Detected (NotDetected); Coronavirus NL63 PCR Not Detected (NotDetected); Coronavirus OC43PCR Not Detected (NotDetected); Human Metapneumovirus PCR Not Detected (NotDetected); Influenza A PCR Not Detected (NotDetected); Influenza B PCR Not Detected (NotDetected); Mycoplasma pneumoniae PCR Not Detected (NotDetected); Parainfluenza Virus 1 PCR Not Detected (NotDetected); Parainfluenza Virus 2 PCR Not Detected (NotDetected); Parainfluenza Virus 3 PCR Not Detected (NotDetected); Parainfluenza Virus 4 PCR Not Detected (NotDetected); Respiratory Syncytial VirusPCR Not Detected (NotDetected); Rhinovirus/Enterovirus PCR Not Detected (NotDetected)
[2024-08-31] MEDS: FUROSEMIDE INJ 20 MG/2 ML VIAL IV ONE (12:21)
[2024-08-31] MEDS: LOSARTAN POTASSIUM 50 MG TAB PO SCH (12:56)
[2024-08-31] MEDS: METOPROLOL TARTRATE 100 MG TAB PO STA (12:57)
--- NOTE | 2024-08-31 13:07 | History & Physical Report ---
Date of Service August 31, 2024 Assessment & Plan (1) Acute hyperventilation syndrome: Plan: suspect secondary to chronic respiratory and anxiety tachypneic, RR as high as 43 VBG 7.55/29/25 CXR negative for acute changes, no changes, left pleural effusion BNP baseline, 154 Started on BiPAP in ED -> dyspnea and tachypnea improved with 0.25 Mg IV Ativan -> attempt to trial off 1400, 98% on RA and tolerating well ED: Lasix 10mg IV, Levalbuterol neb, Ativan 0.25mg blood cultures sent from ED incentive spirometry ordered continue Ativan 0.25 mg PRN repeat VBG 1500 Patient would not want intubated under any circumstances. (2) Chest pain: Plan: associated chest pain with dyspnea -> resolved missed a.m. isosorbide mononitrate; ordered on admission along with home PPI troponin negative (12.9); will repeat ekg showing Afib, No ischemic changes Repeat EKG with chest pain as needed monitor on tele (3) Essential hypertension: Plan: BP 211/92 in ED; pt missed AM medications Home medications ordered - losartan, Lopressor, diltiazem closely monitor (4) Permanent atrial fibrillation: Plan: S/p pacer EKG on admission showed A-fib rate 98 continue metoprolol, diltiazem, and Eliquis (Previously contraindicated with epidural hematoma but now with recent arterial occlusion) (5) Weakness: Plan: ongoing weakness since April Has been in and out of rehab for the past few months Has home health PT/OT fall and aspiration precautions (6) History of arterial occlusion: Plan: arterial occlusion of right LE in April, was life flighted to [place] Residual right LE numbness Continue Eliquis PT and OT as above (7) Asymptomatic bacteriuria: Plan: UA showing 4+ bacteria, no contaminate cultures ordered as asymptomatic; defer ABX treatment at this time (8) Hypothyroidism: Plan: TSH ordered Continue levothyroxine Plan Patient is an 88-year-old female with history of hypoxic respiratory failure thought due to recurrent aspiration requiring frequent hospitalizations, A-fib s/p pacer, hypertension, GERD, hyperlipidemia, hypothyroidism, cervical epidural hematoma, arterial occlusion in April. She presents today due to dyspnea x 1 week. She was found to be tachypneic with EKG showing respiratory alkalosis from suspected hypoventilation. She also had a blood pressure of 211/92. ER provider ordered BiPAP, home losartan and metoprolol, along with IV 10 Mg Lasix. Her breathing improved with Ativan 0.5 Mg IV and she was titrated off the BiPA P. Patient had associated chest pain with dyspnea, will admit for cardiac workup, trend troponin. If repeat troponins negative will be okay for discharge in a.m. 09/01. Chronic stable diagnoses: GERD - continue PPI and famotidine depression - continue donepezil and sertraline insomnia - zolpidem and melatonin prn HLD - continue statin VTE ppx: Eliquis Diet: Heart healthy Dispo: med/telemetry If repeat troponins negative, plan for discharge 09/01/2024. Admission and Anticipated Discharge Date Admission Date: 08/31/24 History of Present Illness Chief Complaint: dyspnea Primary Care Provider: Edgar Quirogamartamervin Patient is an 88-year-old female with history of hypoxic respiratory failure thought due to recurrent aspiration requiring frequent hospitalizations, A-fib s/p pacer, hypertension, GERD, hyperlipidemia, hypothyroidism, cervical epidural hematoma, arterial occlusion in April. She presents today due to dyspnea x 1 week. She was found to be tachypneic with EKG showing respiratory alkalosis from suspected hypoventilation. She also had a blood pressure of 211/92. ER provider ordered BiPAP, home losartan and metoprolol, along with IV 10 Mg Lasix. Her breathing improved with Ativan 0.5 Mg IV. Patient was seen at bedside on BiPAP with daughter present. Following history was provided by patient's daughter as patient with difficulty speaking on BiPAP. she stated that in April the patient was deflated today and developed to a blood clot and was there for approximately 3 weeks. She then went to acute rehab for about 1 month, she came home for a week but was too weak, so she returned to [facility] for approximately 2 weeks. She has been home since with home health PT/OT/nursing. Since she has been home she has had dyspnea and family has noted heavy breathing. This has been unchanged since although this morning it was reported that the patient just could not catch her breath. When she saw GI on Wednesday, they was concerned about the heavy breathing and ordered a CXR which was reportedly negative. The patient's daughter stated that they have been trying to get her home oxygen because she does not use her CPAP at night but with the recent hospitalization they have not yet set this up. She has no previous history of COPD, asthma, CHF. She has been hospitalized multiple times over the past year due to hypoxia suspected secondary to aspiration. The patient was on BiPAP and stated that her breathing is much improved. She denies current dyspnea. She stated that she did feel dyspneic this morning, she then got anxious and started breathing heavily. She also stated that she had sharp chest pain when she was short of breath that is now resolved with the BiPAP. She denies the chest pain changing with deep inspiration. It did not radiate. She also endorses fatigue for the past few weeks. Patient's daughter stated that she has difficulty with minimal ADLs. The patient did not take her home medications this morning. Blood pressure was 211/92 on exam, home BP medications ordered. Patient wishes to be DNR/DNI status. Discussed potential need for intubation if BiPAP does not resolve tachypnea, patient would not want intubated under any circumstance. 1400: discussed with respiratory therapy at 1400, trialed patient off BiPAP and patient tolerated well. 98% on room air. will keep off BiPAP for now and repeat VBG. Allergies Allergy/AdvReac Type Severity Reaction Status Date / Time oxycodone AdvReac Intermediate HALLUCINATI Verified 08/31/24 13:03 ONS morphine AdvReac Unknown DELIRIUM Verified 08/31/24 13:03 Home Medications Medication Instructions Recorded Confirmed Type omeprazole 40 mg capsule,delayed 40 mg PO QAM 05/06/18 08/31/24 History release atorvastatin 20 mg tablet 20 mg PO HS 11/16/18 08/31/24 History docusate sodium 100 mg tablet 200 mg PO QPM 11/16/18 08/31/24 History sertraline 50 mg tablet 50 mg PO QAM 11/16/18 08/31/24 History donepezil 5 mg tablet 5 mg PO HS 02/09/22 08/31/24 History cranberry extract 500 mg tablet 1,000 mg PO QAM 02/21/24 08/31/24 History ibandronate 150 mg tablet 150 mg PO MONTHLY 02/21/24 08/31/24 History furosemide 20 mg tablet (Lasix) 20 mg PO DAILY PRN edema/swelling 02/28/24 08/31/24 Rx of legs #30 tabs cyanocobalamin (vitamin B-12) 5,000 mcg PO QAM 04/09/24 08/31/24 History 2,500 mcg sublingual tablet (Vitamin B-12) sennosides 8.6 mg tablet (senna) 8.6 mg PO QAM PRN Constipation 04/09/24 08/31/24 History zolpidem 10 mg tablet 5 mg PO HS PRN Insomnia 04/09/24 08/31/24 History metoprolol tartrate 100 mg tablet 100 mg PO BID 05/11/24 08/31/24 History magnesium oxide 400 mg PO QAM 05/13/24 08/31/24 History polyethylene glycol 3350 17 gram 17 g PO DAILY PRN Constipation 05/13/24 08/31/24 History oral powder packet (Miralax) apixaban 2.5 mg tablet (Eliquis) 2.5 mg PO BID 08/31/24 08/31/24 History diltiazem HCl 180 mg capsule,24 360 mg PO QAM 08/31/24 08/31/24 History hr,extended release (Tiadylt ER) famotidine 20 mg tablet 20 mg PO HS 08/31/24 08/31/24 History isosorbide mononitrate 30 mg 30 mg PO QAM 08/31/24 08/31/24 History tablet,extended release 24 hr levothyroxine 100 mcg tablet 100 mcg PO QAM 08/31/24 08/31/24 History melatonin 3 mg tablet 3 mg PO HS PRN Insomnia 08/31/24 08/31/24 History Past Med/Surg History Problem List (Updated 08/31/24 @ 18:57 by Nicole Hernandez PA-C) Asymptomatic bacteriuria Acute respiratory alkalosis (Acute) Chest pain (Acute) History of arterial occlusion Acute hyperventilation syndrome (Acute) Acute hypoxic respiratory failure Colonic thickening Arterial occlusion, lower extremity (Acute) Essential hypertension Permanent atrial fibrillation (Acute) Presence of permanent cardiac pacemaker PND (post-nasal drip) Stroke (Acute) Pericardial effusion Thrombocytopenia Female bladder prolapse Acute metabolic encephalopathy UTI (urinary tract infection) Acute diastolic CHF (congestive heart failure) Elevated troponin Hypokalemia (Acute) Anticoagulation therapy not indicated Dizziness Hypothyroidism DVT prophylaxis Insomnia Depression (Chronic) B12 deficiency Peripheral neuropathy (Chronic) 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) Cellulitis of left orbit (Acute) Stomach ulcer (Acute) GERD (gastroesophageal reflux disease) (Chronic) Vertigo (Acute) Weakness (Acute) Medical History Aspiration into lower respiratory tract Periorbital cellulitis of left eye Hyperlipidemia LDL goal <70 Thoracic back pain CVA (cerebral vascular accident) Epidural hematoma Weight loss, unintentional Tricuspid regurgitation Tachy-jazmine syndrome Pulmonary hypertension Dyslipidemia Cerebrovascular disease Benign hypertension Aortic regurgitation Anxiety disorder Headache Surgical History H/O cervical spine surgery "cervical decompression with evacuation of cervical epidural hematoma 09/22/2012" S/P tonsillectomy H/O: hysterectomy History of bilateral tubal ligation History of appendectomy Family History Other Family history non-contributory Social History Smoking Status: Never smoker Do You Dip or Chew Tobacco: No; Hx Alcohol Use: No Hx Substance Use: No Preferred Language: Thai Communication Ability: Effective Phonograph Cartridge Assembler Required: No Beliefs That Will Affect Care: None marital status: / Current Living Situation: Alone Current Living Situation Comment: Lives at home with grandson Other Information That Helps Us Care for You: No Feels Safe at Home: Yes Assistive Devices: Bedside Commode, Cane, CPAP, Walker and Wheelchair Review of Systems Review of Systems: see HPI Physical Exam Physical Exam: The patient is awake, alert and oriented 3, frail, normocephalic and atraumatic. Non-toxic appearing. On Bipap. HEENT- EOMI, mucous membranes dry. Hearing grossly intact. Heart-normal S1 and S2. No murmurs, rubs or gallops. Lungs-clear bilaterally, on Bipap. Abdomen-normal bowel sounds and soft. No ascites noted. Non-tender. Extremities- no clubbing, cyanosis, or edema. Psychiatric-tearful affect. Results & Data Results & Data Vital Signs (Past 12 Hours) Vital Signs Temp Pulse Pulse Resp BP Pulse Ox O2 Del Method 08/31/24 10:57 106 H 31 H 99 08/31/24 10:47 134/87 08/31/24 10:42 107 H 28 H 100 08/31/24 10:40 106 H 43 H 98 BiPAP 08/31/24 10:28 36.3 C L 101 H 32 H 167/102 H 99 CPAP 08/31/24 10:27 BiPAP 08/31/24 10:27 BiPAP 08/31/24 10:27 101 H 99 BiPAP 08/31/24 10:26 101 H 38 H 99 08/31/24 10:23 106 H 08/31/24 10:20 167/102 H FiO2 08/31/24 10:57 08/31/24 10:47 08/31/24 10:42 08/31/24 10:40 30 08/31/24 10:28 08/31/24 10:27 08/31/24 10:27 08/31/24 10:27 08/31/24 10:26 30 08/31/24 10:23 08/31/24 10:20 Laboratory Results Reviewed CBC, PT/INR, CMP, BNP, bio fire, VBG Diagnostic Findings Reviewed CXR Medications Administered ED: on losartan and metoprolol, 0.25 IV Ativan, 10 Mg IV Lasix, levalbuterol neb ECG Additional Comments: A-fib, paced rate 98 Code Status & VTE Plan Code Status DNR/DNI Would not want intubated under any circumstances VTE Prophylaxis Plan VTE Prophylaxis will be ordered: Yes Supervising Physician Co-Signing Physician Notes I personally saw and examined the patient. I independently reviewed the labs, EKG, imaging, problem list, medication list, past medical history and family history. I verified all radford points and agree with Nicole Hernandez PA-C with the following exceptions and/or additions: 88 year old female presents to the ER with acute shortness of breath, much improved following lorazepam O/E HS irregular rhythm, regular rate, no murmurs, Chest CTAB, Abdo SNT A/P Acute hyperventilation - VBG with respiratory alkalosis, discontinued BiPAP, Lorazepam helped. Monitor overnight. PG Care Time/CCT Total # of Minutes Spent Total Time Spent with Patient: Total time spent is greater than 50% in coordination of care (as documented) at patient's floor/unit and/or counseling patient: Coding Level of Care Code 36912 INT INP/OBS CARE MIN Diagnoses Acute hyperventilation syndrome F45.8 Chest pain R07.9 Essential hypertension I10 Permanent atrial fibrillation I48.21 Weakness R53.1 History of arterial occlusion Z86.79 Asymptomatic bacteriuria R82.71 Hypothyroidism E03.9
[2024-08-31 14:23] LABS: Appearance Urine Clear (Clear); Bacteria Urine Automated 4+ (None Seen); Bilirubin Urine Negative (Negative); Blood Urine 1+ (Negative); Cast Urine Automated 0-2 /lpf (0-2); Color Urine Yellow; Epithelial Cell Urine Auto 0-2 /hpf (0-2); Glucose Urine UA Negative (Negative); Ketones Urine 1+ (Negative); Leukocyte Esterase Urine 1+ (Negative); Nitrite Urine Negative (Negative); Protein Urine Negative (Negative); RBC Urine Automated 0-2 /hpf (0-2); Specific Gravity Urine 1.009 (1.000-1.030); Urobilinogen Urine Negative (Negative); WBC Urine Automated 0-5 /hpf (0-5); pH Urine 6.5 (4.5-7.5)
[2024-08-31 15:19] LABS: Base Excess VBG 4.5 mEq/L; HCO3 VBG 28 mmol/L; Oxygen Saturation VBG < 60.0 %; PCO2 VBG 39 mmHg (38-50); PO2 VBG 36 mmHg; pH VBG 7.47 (7.36-7.41)
--- OUTSIDE RECORDS SUMMARY | 2024-08-31 16:30 | External Medical Summary | Summary of Care ---
Author Name Unknown Organization [facility] Address [address] [address] Phone [phone] Care Team Providers Care Descriptive Catalog Librarian Name Role Phone Edgar Fine PA-C Primary Care Provide r Reason for Visit * Reason Onset Date Comments Test Results 08/30/2024 Encounter Details Date Type Department Care Team (Late st Contact Info) Description 08/30/2024 Telephone Gastroenterology, [address] [id number] Peri Blue PA-C [address] [place] [id number] Test Results Allergies Active Allergy Reactions Criticality Noted Date Comments Hydromorphone Psych complications High 05/24/2024 Hallucinations, delirum Morphine Psych complications High 05/14/2024 Hallucinations, delirium Oxycodone Psych complications High 05/14/2024 Hallucinations, delirum documented as of this encounter (statuses as of 08/30/2024) Medications Cranberry 1000 MG Capsule Take 1,000 mg by mouth in the morning. Active atorvaSTATin (LIPITOR) 20 MG Tablet Take 1 Tablet by mouth every evening. 5 9 Active sertraline (ZOLOFT) 50 MG Tablet Take 1 Tablet by mouth in the morning. 5 9 Active ibandronate (BONIVA) 150 MG Tablet Take 1 Tablet by mouth every 30 days. Takes on the 16 of each month 5 9 Active omeprazole (PRILOSEC) 40 MG CPDR Take 1 Capsule by mouth in the morning. Active famotidine (PEPCID) 40 MG Tablet Take 1 Tablet by mouth in the morning. Active Metoprolol Tartrate 100 MG Oral Tablet (Lopressor) Take 1 Tablet by mouth in the morning and 1 Tablet before bedtime. 4 Active B-12 2500 MCG Sublingual Tablet Sublingual Take 2,500 mcg by mouth in the morning. 4 Active Donepezil HCl 5 MG Oral Tablet (Aricept) Take 1 Tablet by mouth every evening. 4 Active Ferrous Sulfate 325 (65 Fe) MG Oral Tablet (Feosol) Take 1 Tablet by mouth in the morning and 1 Tablet before bedtime. 4 Active Losartan Potassium 50 MG Oral Tablet (Cozaar) Take 1 Tablet by mouth every evening. 4 Active Pregabalin 100 MG Oral Capsule (Lyrica) Take 2 Capsules by mouth every evening. 4 Active Levothyroxine Sodium 75 MCG Oral Tablet (Levoxyl) Take 88 mcg by mouth in the morning. 4 Active Magnesium Oxide -Mg Supplement 400 (240 Mg) MG Oral Tablet (Mag-Ox) Take 1 Tablet by mouth in the morning. 4 Active dilTIAZem HCl ER 180 MG Oral Capsule Extended Release 24 Hour Take 1 Capsule by mouth in the morning. 4 Active levoFLOXacin 500 MG Oral Tablet Take 1 Tablet by mouth in the morning. X 5 days, last dose 06/24/24. Active traMADol HCl 50 MG Oral Tablet (Ultram) Take 1 Tablet by mouth in the morning and 1 Tablet before bedtime. Active Acetaminophen 325 MG Oral Tablet (Tylenol) Take 2 Tablets by mouth every 6 hours. Active Ondansetron HCl 4 MG Oral Tablet (Zofran) Take 1 Tablet by mouth every 8 hours as needed for Nausea. Active Azithromycin 250 MG Oral Tablet (Zithromax) Take 1 Tablet by mouth in the morning. X 4 days, last dose 06/20/24. Active Senna-Docusate Sodium 8.6-50 MG Oral Tablet Take 1 Tablet by mouth in the morning and 1 Tablet before bedtime. Active traZODone HCl 50 MG Oral Tablet (Desyrel) Take 0.5 Tablets by mouth at bedtime. Active Isosorbide Mononitrate ER 30 MG Oral Tablet Extended Release 24 Hour (Imdur) Take 1 Tablet by mouth in the morning. Active Furosemide 20 MG Oral Tablet (Lasix) Take 1 Tablet by mouth in the morning and 1 Tablet before bedtime. Active documented as of this encounter (statuses as of 08/30/2024) Active Problems Problem Noted Date Diagnosed Date Toxic metabolic encephalopathy 07/06/2024 Wound dehiscence 06/20/2024 Wound of left leg 06/16/2024 Intestinal mass 06/16/2024 Nausea without vomiting 06/16/2024 Pneumonia due to infectious organism 06/16/2024 Urinary tract infection without hematuria 2023 Coagulation defect 06/14/2024 Qualitative platelet defect 06/14/2024 History of thrombectomy 06/12/2024 Slow transit constipation 06/12/2024 Hypokalemia 05/31/2024 Counseling regarding goals of care 05/26/2024 Dysphagia 05/25/2024 Mild cognitive impairment with memory loss 05/23 On peripheral parenteral nutrition (ppn) 024 Acute hypoxic respiratory failure 05/17/2024 Atrial fibrillation 05/15/2024 Hypothyroidism 05/15/2024 Altered mental status 05/15/2024 Acute occlusion of artery of lower extremity due to thromboembolism 05/14/2024 Cerebral aneurysm, nonruptured 01/03/2019 documented as of this encounter (statuses as of 08/30/2024) Resolved Problems Problem Noted Date Diagnosed Date Resolved Date Impaired mobility and ADLs 06/12/2024 1 09/11/2023 Decreased appetite 05/26/2024 documented as of this encounter (statuses as of 08/30/2024) Immunizations Name Administration Dates Next Due COVID-19, MRNA-LNP, PF, 25 M CG/0.25 mL, 6MO-11YRS, IM (MODERNA) 07/02/2024 Seasonal Influenza, PF, 6 M & above, IM , (FluLaval or Fluzone) 06/24/2024 documented as of this encounter Social History Tobacco Use Types Packs/Day Years Used Date Smoking Tobacco: Never Smokeless Tobacco: Never Alcohol Use Standard Drinks/Week Comments Not Currently 0 (1 standard drink = 0.6 oz pur e alcohol) Personal Safety Answer Date Recorded Do you feel unsafe or have concerns for your saf ety? No 05/14/2024 Do you have concerns for you r family's safety? (Household - for ages 0-17 years) Not on file 05/14/2024 Utilities Answer Date Recorded Do you have trouble paying y our heating, water, or electric bill? No 05/14/2024 Is your family able to pay t he heat, water, or electric bill? (Household - for ages 0-17 years) Not on file 05/14/2024 Does your family have access to good internet? (Household - for ages 0-17 years) Not on file 05/14/2024 Transportation Needs Answer Date Record ed Do you have trouble getting a ride to medical visits or work? (Adult - for ages 18 years and over) Not on file 05/14/2024 Does your family have a hard time getting a ride to doctors visits? (Household - for ages 0-17 years) Not on file 05/14/2024 Has lack of transportation k ept you from medical appointments, meetings, work, or from getting things needed for daily living? Check all that apply. No 05/14/2024 Do you (or your family) have trouble finding or paying for a ride (transportation)? (Household - for ages 0-17 years) Not on file 05/14/2024 Housing Stability Answer Date Recorded Do you currently live in a s helter or have no steady place to sleep at night? (Adult - for ages 18 years and over) Not on file 05/14/2024 Do you think you are at risk of becoming homeless? (Adult - for ages 18 years and over) Not on file 05/14/2024 Does your family worry about paying for your home or becoming homeless? (Household - for ages 0-17 years) Not on file 0 05/14/2024 Are you homeless or worried that you might be in the future? No 05/14/2024 Are you (or your family) adama eless or worried that you might be in the future? (Household - for ages 0-17 years) Not on file Food Insecurity Answer Date Recorded Do you need food for this week? No 05/14/2024 Are you able to get enough f ood for your family? (Household - for ages 0-17 years) Not on file 05/14/2024 Does your family need food t his week? (Household - for ages 0-17 years) Not on file 05/14/2024 Do you always have enough fo od for your family? (Household - for ages 0-17 years) Not on file 05/14/2024 Comments No Sex and Gender Information Value Date Recorded Sex Assigned at Female 08/22/2024 1:30 PM EST Legal Sex Female 7:02 AM EST Gender Identity Female 08/22/2024 1:30 PM EST Sexual Orientation Straight 08/22/2024 1: 30 PM EST documented as of this encounter Miscellaneous Notes * Telephone Encounter - Michelle Irvin CMA - 08/30/2024 11:18 AM EST Pts daughter Missy notified and voiced understanding. * Telephone Encounter - Peri Blue PA-C - 08/30/2024 11:02 AM EST Can you let the pts daughterMissy know - Venus's chest xray looked great; no pneumonia, etc. (Missy's cell number is the primary number in the chart and she takes care of her mother's care). Hope Venus is doing well, and do keep an eye on the blood pressure; let PCP know if having issueswith the BP (they may want to adjust her meds). Thanks, Peri Blue PA-C 08/30/2024 Department of Gastroenterology documented in this encounter Plan of Treatment Upcoming Encounters Date Type Department Care Team (Late st Contact Info) Description 12/05/2024 10:00 AM EDT [facility] [address] [facility] [place] [address] Peri Blue PA-C [address] [place] [id number] Health Maintenance Due Date Last Done Comments DXA Scan 1935 Depression Screening 1947 DTap/Tdap Vaccines (1 - Tdap) 11/07/1954 Zoster Vaccines (1 of 2) 1986 COVID-19 Vaccine (1 - season) 2024 07/02/2024 TSH 07/07/2025 07/07/2024, 05/23, 03/02/2024 Pneumococcal Vaccine: 50+ Years Completed 11/02/2018, 08/10/2017, 07/01/2016 Influenza Vaccine (FLU shot) Completed 09/2023, 06/20/2018, 06/20/2018, Additional history exists HPV (Gardasil) Vaccine Aged Out No lo nger eligible based on patient's age to complete this topic Hepatitis B Vaccine Aged Out No longe r eligible based on patient's age to complete this topic MENINGOCOCCAL (MENACTRA/MENVEO) Aged Out No longer eligible based on patient's age to complete this topic documented as of this encounter Medical Devices Not on filedocumented as of this encounter Advance Directives Documents on File Type Date Recorded Patient Manager Social Services Expl anation Advance Directives and Living Will 06/08/2024 signed on 02/18/2015 ADVANCE DIRECTIVE / LIVING WILL Power of Body Coverer 06/08/2024 signed on 02/18/2015 POWER OF GEOTECHNICAL FIELD TECHNICIAN Power of Body Coverer 06/08/2024 signed on 02/18/2015 POWER OF GEOTECHNICAL FIELD TECHNICIAN * Limited Code (Latest Code Status on File) Date Activated Date Inactivated Comments 05/16/2024 8:05 PM 06/06/2024 6:58 PM This order reflects the patients wishes and were consensually agreed upon. Question Answer Comments Discussion of Advance Directives occurred with: Family Bag Valve Device? Yes Intubation? Yes Cardiac Compressions? No Defibrillation? No * No Code Date Activated Date Inactivated Comments 05/16/2024 1:07 PM 05/16/2024 8:05 PM This order r eflects the patients wishes and were consensually agreed upon. Question Answer Comments Discussion of Advance Directives occurred with: Family Does the patient have a Living Will? No Does the patient have Health Care Power of Attor vannesa? No * Limited Code Date Activated Date Inactivated Comments 05/16/2024 1:05 PM 05/16/2024 1:07 PM This order r eflects the patients wishes and were consensually agreed upon. Question Answer Comments Discussion of Advance Directives occurred with: Family Does the patient have a Living Will? Yes, not cu rrently available Does the patient have Health Care Power of Body Coverer? Yes, not currently available Bag Valve Device? Yes Intubation? Yes Cardiac Compressions? No Defibrillation? No Synchronized Cardioversion? No External Pacemaker? No Cardiac Drugs? No * Full Code Date Activated Date Inactivated Comments 05/14/2024 2:58 PM 05/16/2024 1:05 PM This order r eflects the patients wishes and were consensually agreed upon. Question Answer Comments Discussion of Advance Direct elmer occurred with: Not Discussed due to patient's condition Care Teams Descriptive Catalog Librarian Relationship Specialty Start Date End Date Edgar Fine PA-C [address] [facility] [address] [place] [address] PCP - General Physician Concrete Floor Installer 06/16/24 documented as of this encounter
--- OUTSIDE RECORDS SUMMARY | 2024-08-31 16:30 | External Medical Summary | Summary of Care ---
Author Name Unknown Organization [facility] Address [address] [facility] [address] Phone [phone] Care Team Providers Care Photo Producer Name Role Phone Edgar Fine PA-C Primary Care Provide r Reason for Visit * Reason Onset Date Comments Test Results 08/30/2024 Encounter Details Date Type Department Care Team (Late st Contact Info) Description 08/30/2024 Telephone Gastroenterology, [address] [phone] Peri Blue PA-C [address] [place] [id number] Test Results Allergies Active Allergy Reactions [...] 12/05/2024 10:00 AM EDT Office [facility], [facility] [place] [address] Peri Blue PA-C [address] [place] [...] Documents on File Type Date Recorded Patient Machine Stone Polisher Expl anation Advance Directives and Living Will 06/08/2024 signed on 02/18/2015 ADVANCE DIRECTIVE / LIVING WILL Power of Blacktop Paver Operator 06/08/2024 signed on 02/18/2015 POWER OF ENDLESS STEAMER TENDER Power of Blacktop Paver Operator 06/08/2024 signed on 02/18/2015 POWER OF ENDLESS STEAMER TENDER * Limited Code (Latest Code Status on [...] the patient have Health Care Power of Blacktop Paver Operator? Yes, not currently available Bag Valve Device? [...] Discussed due to patient's condition Care Teams Photo Producer Relationship Specialty Start Date End Date Edgar Fine PA-C [address] [facility] 2 [place] [address] PCP - General Physician Office Machine Technician 06/16/24 documented as of this encounter
--- OUTSIDE RECORDS SUMMARY | 2024-08-31 16:30 | External Medical Summary | Summary of Care ---
Author Name Unknown Organization [facility] Address [address] [facility] [place] [address] Phone [phone] Care Team Providers Care Roll Scale Man Name Role Phone Edgar Fine PA-C Primary Care Provide r Reason for Visit * Reason Comments Consultation * Evaluate & Treat - Unlimited Visits (Within 10 days (routine)) - Pending Review Specialty Diagnoses / Procedures Referred By Eliot anderson Referred To Contact Gastroenterology Diagnoses Esophageal dysmotility Ronald Glez, DO [address] [place] [facility] [place] [address] Phone: tel: fax: Referral ID Status Reason Start Date Expiration Date Visits Requested Visits Authorized [id number] Pending Review Specialty Services Required [phone] Encounter Details Date Type Department Care Team (Late st Contact Info) Description 08/25/2024 1:30 PM EST Telemedicine Gastroenterology [address] [place] [address] Matilde Rivera CRNP [address] [place] [address] Abdominal mass, unspecified abdominal location* Allergies Active Allergy Reactions Criticality Noted Date Comments Hydromorphone Psych complications High 05/24/2024 Hallucinations, delirum Morphine Psych complications High 05/14/2024 Hallucinations, delirium Oxycodone Psych complications High 05/14/2024 Hallucinations, delirum documented as of this encounter (statuses as of 08/25/2024) Medications Cranberry 1000 MG Capsule Take 1,000 mg by mouth in the morning. Active atorvaSTATin (LIPITOR) 20 MG Tablet Take 1 Tablet by mouth every evening. 5 10/22/2018 Active sertraline (ZOLOFT) 50 MG Tablet Take 1 Tablet by mouth in the morning. 5 11/29/2018 Active ibandronate (BONIVA) 150 MG Tablet Take 1 Tablet by mouth every 30 days. Takes on the 16th of each month 5 11/25/2018 Active omeprazole (PRILOSEC) 40 MG CPDR Take 1 Capsule by mouth in the morning. Active famotidine (PEPCID) 40 MG Tablet Take 1 Tablet by mouth in the morning. Active Metoprolol Tartrate 100 MG Oral Tablet (Lopressor) Take 1 Tablet by mouth in the morning and 1 Tablet before bedtime. 04/30/2024 Active B-12 2500 MCG Sublingual Tablet Sublingual Take 2,500 mcg by mouth in the morning. 03/27/2024 Active Donepezil HCl 5 MG Oral Tablet (Aricept) Take 1 Tablet by mouth every evening. 02/28/2024 Active Ferrous Sulfate 325 (65 Fe) MG Oral Tablet (Feosol) Take 1 Tablet by mouth in the morning and 1 Tablet before bedtime. 03/11/2024 Active Losartan Potassium 50 MG Oral Tablet (Cozaar) Take 1 Tablet by mouth every evening. 04/30/2024 Active Pregabalin 100 MG Oral Capsule (Lyrica) Take 2 Capsules by mouth every evening. 04/30/2024 Active Levothyroxine Sodium 75 MCG Oral Tablet (Levoxyl) Take 88 mcg by mouth in the morning. 03/12/2024 Active Magnesium Oxide -Mg Supplement 400 (240 Mg) MG Oral Tablet (Mag-Ox) Take 1 Tablet by mouth in the morning. 03/16/2024 Active dilTIAZem HCl ER 180 MG Oral Capsule Extended Release 24 Hour Take 1 Capsule by mouth in the morning. 03/14/2024 Active levoFLOXacin 500 MG Oral Tablet Take [...] 0.5 Tablets by mouth at bedtime. Active documented as of this encounter (statuses as of 08/25/2024) Active Problems Problem Noted Date Diagnosed Date [...] as of this encounter (statuses as of 08/25/2024) Resolved Problems Problem Noted Date Diagnosed Date Resolved Date Impaired mobility and ADLs 06/12/2024 1 09/11/2023 Decreased appetite 05/26/2024 documented as of this encounter (statuses as of 08/25/2024) Social History Tobacco Use Types Packs/Day Years [...] PM EST documented as of this encounter Progress Notes * Matilde Rivera CRNP - 08/25/2024 1:36 PM EST Pt was referred for evaluation of ? Cecal mass and and esophageal dysmotility. She made a Telemedicine visit and wants to be evaluated for a 'lump' under L rib which can be present as soon as she eats. The 'lump' is uncomfortable. But she denies associated dysphagia, n/v. I explained to pt and her daughter (Missy) that pt should get physically examined for this issue. They are agreeable to be scheduled for in person visit on 08/29/2024 at 2PM, [facility] office per their preference. LEI Santana documented in this encounter Plan of Treatment Upcoming Encounters Date Type Department Care Team (Late st Contact Info) Description 08/29/2024 2:00 PM EST [facility] [address] [facility] [place] [address] Peri Blue PA-C [address] [place] [phone] Scheduled Referrals Name Type Priority Associated Diagnoses Order Schedule ADULT GASTROENTEROLOGY REFERRAL OP Referral Within 10 days (routine) Esophageal dysmotility Ordered: 08/22/2024 Health Maintenance Due Date Last Done Comments DXA Scan 1935 Depression Screening 1947 DTap/Tdap Vaccines (1 - Tdap) 11/07/1955 Zoster Vaccines (1 of 2) 1986 Influenza Vaccine (FLU shot) (#1) 2024 06/20/2018, 06/20/2018, 06/14/2017, Additional history exists COVID-19 Vaccine ( season) 2024 07/02/2024 TSH 07/07/2025 07/07/2024, 05/23, 03/02/2024 Pneumococcal Vaccine: 50+ Years Completed 11/02/2018, 08/10/2017, 07/01/2016 HPV (Gardasil) Vaccine Aged Out No lo nger eligible based on patient's age to complete this topic Hepatitis B Vaccine Aged Out No longe r eligible based on patient's age to complete this topic MENINGOCOCCAL (MENACTRA/MENVEO) Aged Out No longer eligible based on patient's age to complete this topic documented as of this encounter Medical Devices Not on filedocumented as of this encounter Visit Diagnoses Diagnosis Abdominal mass, unspecified abdominal location- Primary documented in this encounter Advance Directives Documents on File Type Date Recorded Patient Nutritional Assistant Expl anation Advance Directives and Living Will 06/08/2024 signed on 02/18/2015 ADVANCE DIRECTIVE / LIVING WILL Power of Economic Research Assistant 06/08/2024 signed on 02/18/2015 POWER OF HOSPITALIST NOCTURNIST PHYSICIAN Power of Economic Research Assistant 06/08/2024 signed on 02/18/2015 POWER OF HOSPITALIST NOCTURNIST PHYSICIAN * Limited Code (Latest Code Status on [...] the patient have Health Care Power of Economic Research Assistant? Yes, not currently available Bag Valve Device? [...] Discussed due to patient's condition Care Teams Roll Scale Man Relationship Specialty Start Date End Date Edgar Fine PA-C [address] [facility] [address] [place] [address] PCP - General Physician Can Closing Machine Tender 06/16/24 documented as of this encounter
--- OUTSIDE RECORDS SUMMARY | 2024-08-31 16:31 | External Medical Summary | Summary of Care ---
Author Name Unknown Organization [facility] Address [address] [facility] [place] [address] Phone [phone] Care Team Providers Care Instrument Fitter Name Role Phone Edgar Fine PA-C Primary Care Provide r Reason for Referral * Evaluate & Treat - Unlimited Visits (Within 10 days (routine)) - Pending Review Specialty Diagnoses / Procedures Referred By Eliot anderson Referred To Contact Gastroenterology Diagnoses Esophageal dysmotility Ronald Glez DO [address] [facility] [place] [address] Phone: tel: fax: Referral ID Status Reason Start Date Expiration Date Visits Requested Visits Authorized [id number] Pending Review Specialty Services Required [phone] Question Answer Referral Priority Within 10 days (routine) Where should this appointment be scheduled? [facility] For what condition is the patient being referred? All Gastro Conditions Encounter Details Date Type Department Care Team (Late st Contact Info) Description 08/22/2024 Orders Only Access [place], [address] *DO NOT REMOVE THIS DEPARTMENT* [place] [address] Request, External Referral Esophageal dysmotility* Allergies Active Allergy Reactions Criticality Noted Date Comments Hydromorphone Psych complications High 05/24/2024 Hallucinations, delirum Morphine Psych complications High 05/14/2024 Hallucinations, delirium Oxycodone Psych complications High 05/14/2024 Hallucinations, delirum documented as of this encounter (statuses as of 08/22/2024) Medications Cranberry 1000 MG Capsule Take 1,000 [...] on the 16 of each month 5 11/25/2018 Active omeprazole [...] as of this encounter (statuses as of 08/22/2024) Active Problems Problem Noted Date Diagnosed Date [...] as of this encounter (statuses as of 08/22/2024) Resolved Problems Problem Noted Date Diagnosed Date Resolved Date Impaired mobility and ADLs 06/12/2024 1 09/11/2023 Decreased appetite 05/26/2024 documented as of this encounter (statuses as of 08/22/2024) Social History Tobacco Use Types Packs/Day Years [...] Information Value Date Recorded Sex Assigned at Not on file Legal Sex Female 7:02 AM EST Gender Identity Not on file Sexual Orientation Not on file documented as of this encounter Plan of Treatment Scheduled Referrals Name Type Priority Associated Diagnoses Order Schedule ADULT GASTROENTEROLOGY REFERRAL OP Referral Within 10 days (routine) Esophageal dysmotility Ordered: 08/22/2024 Health Maintenance Due Date Last Done Comments DXA Scan 1936 Depression Screening 1947 DTap/Tdap Vaccines (1 - Tdap) 11/07/1955 Zoster Vaccines (1 of 2) 1986 COVID-19 Vaccine (1 - season) 2024 Influenza Vaccine (FLU shot) (#1) 2024 06/20/2018, 06/20/2018, 06/14/2017, Additional history exists TSH 07/07/2025 07/07/2024, 05/23, 03/02/2024 Pneumococcal Vaccine: [...] as of this encounter Visit Diagnoses Diagnosis Esophageal dysmotility- Primary Dyskinesia of esophagus documented in this encounter Advance Directives Documents on File Type Date Recorded Patient Exchange Architect Expl anation Advance Directives and Living Will 06/08/2024 signed on 02/18/2015 ADVANCE DIRECTIVE / LIVING WILL Power of Director Risk 06/08/2024 signed on 02/18/2015 POWER OF SILK SCREEN OPERATOR Power of Director Risk 06/08/2024 signed on 02/18/2015 POWER OF SILK SCREEN OPERATOR * Limited Code (Latest Code Status on [...] the patient have Health Care Power of Director Risk? Yes, not currently available Bag Valve Device? [...] Discussed due to patient's condition Care Teams Instrument Fitter Relationship Specialty Start Date End Date Edgar Fine PA-C [address] [facility] [place] [address] PCP - General Physician Living Advisor 06/16/24 documented as of this encounter
--- OUTSIDE RECORDS SUMMARY | 2024-08-31 16:31 | External Medical Summary | Summary of Care ---
Author Name Unknown Organization [facility] Address [address] [facility] [place] [address] Phone [phone] Care Team Providers Care Matchbook Maker Name Role Phone Edgar Fine PA-C Primary Care Provide r Reason for Visit * Reason Comments Consultation * Evaluate & Treat - Unlimited Visits (Within 10 days (routine)) - Pending Review Specialty Diagnoses / Procedures Referred By Eliot anderson Referred To Contact Gastroenterology Diagnoses Esophageal dysmotility Ronald Glez, DO [address] [place] [facility] [place] [address] Phone: tel: fax: Referral ID Status Reason Start Date Expiration Date Visits Requested Visits Authorized [id number] Pending Review Specialty Services Required [phone] Encounter Details Date Type Department Care Team (Late st Contact Info) Description 08/25/2024 1:30 PM EST Telemedicine Gastroenterology [address] [place] [address] Matilde Rivera CRNP [address] [place] [address] Abdominal mass, unspecified abdominal location* Allergies Active [...] person visit on 08/29/2024 at 2PM, [facility] office per their preference. LEI Santana documented in this encounter Plan of Treatment Upcoming Encounters Date Type Department Care Team (Late st Contact Info) Description 08/29/2024 2:00 PM EST [facility] [address] [facility] [place] [address] Peri Blue PA-C [address] [place] [phone] Scheduled Referrals Name Type Priority Associated Diagnoses [...] Documents on File Type Date Recorded Patient Long Term Expl anation Advance Directives and Living Will 06/08/2024 signed on 02/18/2015 ADVANCE DIRECTIVE / LIVING WILL Power of Us Administrative Law Judge 06/08/2024 signed on 02/18/2015 POWER OF DIRECTOR OF GUIDANCE IN PUBLIC SCHOOLS Power of Us Administrative Law Judge 06/08/2024 signed on 02/18/2015 POWER OF DIRECTOR OF GUIDANCE IN PUBLIC SCHOOLS * Limited Code (Latest Code Status on [...] the patient have Health Care Power of Us Administrative Law Judge? Yes, not currently available Bag Valve Device? [...] Discussed due to patient's condition Care Teams Matchbook Maker Relationship Specialty Start Date End Date Edgar Fine PA-C [address] [facility] 2 [place] [address] PCP - General Physician Fire Alarm Dispatcher 06/16/24 documented as of this encounter
--- OUTSIDE RECORDS SUMMARY | 2024-08-31 16:31 | External Medical Summary | Summary of Care ---
Author Name Unknown Organization [facility] Address [address] [facility] [place] [address] Phone [phone] Care Team Providers Care Senior Sales Engineer Name Role Phone Edgar Fine PA-C Primary Care Provide r Reason for Visit * Reason Onset Date Comments Appointment 08/25/2024 Encounter Details Date Type Department Care Team (Late st Contact Info) Description 08/25/2024 Telephone Gastroenterology, [facility] [address] [place] [address] Matilde Rivera CRNP [address] [place] [address] Appointment Allergies Active Allergy Reactions Criticality Noted Date [...] Telephone Encounter - Michelle Irvin CMA - 08/25/2024 1:00 PM EST LM for pt to call back to schedule in person appt today at [facility] or next week. Pt has video visit scheduled today and needs examined in person. documented in this encounter Plan of Treatment Upcoming Encounters Date Type Department Care Team (Late st Contact Info) Description 08/25/2024 1:30 PM EST Telemedicine Gastroenterology [address] [place] [address] Matilde Rivera CRNP [address] [place] [address] Arrived Health Maintenance Due Date Last Done Comments DXA Scan 1936 Depression Screening 1948 DTap/Tdap Vaccines (1 - Tdap) 11/07/1955 Zoster Vaccines (1 of 2) 1986 COVID-19 Vaccine (1 - season) 2024 07/02/2024 Influenza Vaccine (FLU shot) (#1) 2024 06/20/2018, [...] Documents on File Type Date Recorded Patient Television Audio Engineer Expl anation Advance Directives and Living Will 06/08/2024 signed on 02/18/2015 ADVANCE DIRECTIVE / LIVING WILL Power of Turf And Grounds Supervisor 06/08/2024 signed on 02/18/2015 POWER OF TELESCOPE REPAIRER Power of Turf And Grounds Supervisor 06/08/2024 signed on 02/18/2015 POWER OF TELESCOPE REPAIRER * Limited Code (Latest Code Status on [...] the patient have Health Care Power of Turf And Grounds Supervisor? Yes, not currently available Bag Valve Device? [...] Discussed due to patient's condition Care Teams Senior Sales Engineer Relationship Specialty Start Date End Date Edgar Fine PA-C [address] [place] [address] [place] [address] PCP - General Physician Case Management Rn 06/16/24 documented as of this encounter
--- OUTSIDE RECORDS SUMMARY | 2024-08-31 16:31 | External Medical Summary | Summary of Care ---
Author Name Unknown Organization [facility] Address [address] [facility] [place] [address] Phone [phone] Care Team Providers Care Transit Planner Name Role Phone Edgar Fine PA-C Primary Care Provide r Reason for Visit * Reason Onset Date Comments Appointment 08/25/2024 Encounter Details Date Type Department Care Team (Late st Contact Info) Description 08/25/2024 Telephone Gastroenterology, [facility] [address] [place] [address] Matilde Rivera CRNP [address] [place] [address] Appointment Allergies Active Allergy Reactions Criticality Noted [...] Encounter - Michelle Irvin CMA - 08/25/2024 2:06 PM EST Pt scheduled 08/29/24 at . * Telephone Encounter - Michelle Irvin CMA - 08/25/2024 1:00 PM EST LM for pt to call back to schedule in person appt today at [facility] or next week. Pt has video visit scheduled today and needs examined in person. documented in this encounter Plan of Treatment Upcoming Encounters Date Type Department Care Team (Late st Contact Info) Description 08/29/2024 2:00 PM EST Office Visit Gastroenterology, [facility] [address] [facility] [place] [address] Peri Blue PA-C [address] [employer] [place] [phone] Health Maintenance Due Date Last Done Comments DXA Scan 1936 Depression Screening 1948 DTap/Tdap Vaccines (1 - Tdap) 11/07/1955 Zoster Vaccines (1 of 2) 1986 Influenza Vaccine (FLU shot) (#1) 2024 06/20/2018, 06/20/2018, 06/14/2017, Additional history exists COVID-19 Vaccine ( - 2023- season) 2024 07/02/2024 TSH 07/07/2025 07/07/2024, 05/23, [...] Documents on File Type Date Recorded Patient Coroner Transport Technician Expl anation Advance Directives and Living Will 06/08/2024 signed on 02/18/2015 ADVANCE DIRECTIVE / LIVING WILL Power of Manager Hospice 06/08/2024 signed on 02/18/2015 POWER OF DEAN OF STUDENTS Power of Manager Hospice 06/08/2024 signed on 02/18/2015 POWER OF DEAN OF STUDENTS * Limited Code (Latest Code Status on [...] the patient have Health Care Power of Manager Hospice? Yes, not currently available Bag Valve Device? [...] Discussed due to patient's condition Care Teams Transit Planner Relationship Specialty Start Date End Date Edgar Fine PA-C [address] [place] [address] [place] [address] PCP - General Physician Bobbin Hauler 06/16/24 documented as of this encounter
--- NOTE | 2024-08-31 16:38 | Electrocardiogram Report ---
Test Reason : Blood Pressure : */* mmHG Vent. Rate : 98 BPM Atrial Rate : * BPM P-R Int : * ms QRS Dur : 86 ms QT Int : 366 ms P-R-T Axes : * 41 269 degrees QTcB Int : 467 ms Atrial fibrillation with occasional ventricular-paced complexes Left ventricular hypertrophy with repolarization abnormality ( Sokolow-Leone , Romhilt-Heath ) Abnormal ECG When compared with ECG of 09-Aug-2024 10:26, Vent. rate has increased by 22 bpm Confirmed by Kanu Schwartz ([id number]) on 08/31/2024 4:38:41 PM Referred By: REFERRED SELF Confirmed By: Kanu Schwartz
[2024-08-31] MEDS ORDERED: POLYETHYLENE (MIRALAX) 17 GM PACK PO PRN (16:43)
[2024-08-31] MEDS ORDERED: MELATONIN 3 MG TAB PO PRN (16:43)
[2024-08-31] MEDS ORDERED: LORazepam 2 MG/1 ML VIAL IV PRN (16:43)
[2024-08-31] MEDS ORDERED: ACETAMINOPHEN 325 MG TAB PO PRN (16:43)
[2024-08-31] MEDS: dilTIAZem HCL 180 MG CAPCR PO ONE (17:19)
[2024-08-31] MEDS: APIXABAN 2.5 MG TAB PO SCH (17:21)
[2024-08-31] MEDS: LEVOTHYROXINE SODIUM 100 MCG TABLET PO SCH (17:22)
[2024-08-31] MEDS: ISOSORBIDE MONO EXTENDED REL 30 MG TABCR PO ONE (17:22)
[2024-08-31] MEDS: PANTOprazole 40 MG TAB PO STA (17:22)
[2024-08-31] MEDS: SERTRALINE HCL 50 MG TABLET PO SCH (17:23)
[2024-08-31] MEDS: ATORVASTATIN 20 MG TAB PO SCH (21:03)
[2024-08-31] MEDS: FAMOTIDINE 20 MG TAB PO SCH (21:03)
[2024-08-31] MEDS: METOPROLOL TARTRATE 100 MG TAB PO SCH (21:03)
[2024-08-31] MEDS: DONEPEZIL HCL 5 MG TAB PO SCH (21:04)
[2024-08-31] MEDS: ZOLPIDEM TARTRATE 5 MG TAB PO PRN (22:44)
[2024-09-01 02:20] LABS: Basophils # (auto) 0.06 K/uL (0.00-0.20); Basophils % (auto) 0.8 %; Eosinophils # (auto) 0.08 K/uL (0.00-0.50); Eosinophils % (auto) 1.1 %; Hematocrit (blood only) 36.2 % (37.0-47.0); Immature Granulocytes # (auto) 0.02 K/uL (0.01-0.20); Immature Granulocytes % (auto) 0.3 %; Lymphocytes % (auto) 32.5 %; Mean Corpuscular Hemoglobin 28.4 pg (25.0-34.0); Mean Corpuscular Hgb Conc 33.1 g/dL (32.0-36.0); Mean Corpuscular Volume 85.6 fL (80.0-100.0); Mean Platelet Volume 12.4 fL (9.4-12.4); Monocytes # (auto) 0.79 K/uL (0.11-0.59); Monocytes % (auto) 11.2 %; Neutrophils # (auto) 3.83 K/uL (1.40-6.50); Neutrophils % (auto) 54.1 %; Platelet Count 175 K/uL (130-400); RDW Standard Deviation 46.9 fL (36.4-46.3); Red Blood Count 4.23 M/uL (4.20-5.40); White Blood Count 7.08 K/ul (4.8-10.8)
[2024-09-01 03:00] LABS: BUN Creatinine Ratio 18.3 (10-20); Calcium 8.8 mg/dl (8.6-10.3); Creatinine Clr Calc Pharmacy 37.1 ml/min; Magnesium 1.7 mg/dl (1.7-2.4); Potassium 2.8 mmol/L (3.5-5.1); Troponin I High Sensitivity 16.7 pg/ml (0-14)
[2024-09-01] MEDS: POTASSIUM CHLORIDE CRTAB 20 MEQ TABCR PO STA (03:36)
[2024-09-01 07:28] VITALS: O2SAT 96
[2024-09-01] MEDS: ONDANSETRON INJ 2 MG/ML 2 ML VIAL IV PRN (11:17)
[2024-09-01 11:37] VITALS: RESP 16; TEMP 97.4
[2024-09-01] MEDS: ALUMINUM/MAGNESIUM SUSP 30 ML UDC PO STA (12:22)
[2024-09-01] MEDS: MAGNESIUM OXIDE 400 MG TAB PO SCH (12:56)
[2024-09-01] MEDS: ISOSORBIDE MONO EXTENDED REL 30 MG TABCR PO SCH (12:56)
[2024-09-01] MEDS: dilTIAZem HCL 180 MG CAPCR PO SCH (12:56)
[2024-09-01] MEDS: PANTOprazole 40 MG TAB PO SCH (12:57)
--- NOTE | 2024-09-01 14:20 | Communication Note ---
Date of Service: September 01, 2024 By CMS guidelines, a determination that the admission or continued stay is not medically necessary has been made by a member of the UR committee and a ph ysician for this hospital stay, therefore a Code 44 will be completed and the Inpatient admission will be changed to outpatient.
--- NOTE | 2024-09-01 14:20 | Discharge Summary ---
Discharge Summary Date of Service September 01, 2024 Principal Dx & Hospital Course #1 = Principal Diagnosis (1) Acute hyperventilation syndrome: Venus Montoya is an 88 year old female admitted from August 31-2024 at [facility] due to acute respiratory distress. She was diagnosed with hyperventilation syndrome (respiratory alkalosis on VBG on admission) which can happen in period of high anxiety which has been an ongoing issue for her. No other causes were found. For her ongoing reflux symptoms recommend taking Maalox as needed in addition to her omeprazole and famotidine. Recommend following up with your primary care provider for ongoing management of her anxiety. Sertraline has a higher likelihood of gastrointestinal side effects than alternative anti-anxiety medications and recommend she discusses this further with her primary care provider. Urine culture pending at time of discharge but she is having no specific symptoms of this and currently back to her baseline. No changes to your prescription medications have been made. (2) Chest pain: (3) Essential hypertension: (4) Permanent atrial fibrillation: (5) Weakness: (6) History of arterial occlusion: (7) Asymptomatic bacteriuria: (8) Hypothyroidism: Notes For Next Care Provider Follow up urine culture, treat if she starts having urinary symptoms otherwise presumed to be asymptomatic bacteruria Follow up anxiety Medication Changes From Visit None Admission HPI Per Admitting Provider Patient is an 88-year-old female with history of hypoxic respiratory failure thought due to recurrent aspiration requiring frequent hospitalizations, A-fib s/p pacer, hypertension, GERD, hyperlipidemia, hypothyroidism, cervical epidural hematoma, arterial occlusion in April. She presents today due to dyspnea x 1 week. She was found to be tachypneic with EKG showing respiratory alkalosis from suspected hypoventilation. She also had a blood pressure of 211/92. ER provider ordered BiPAP, home losartan and metoprolol, along with IV 10 Mg Lasix. Her breathing improved with Ativan 0.5 Mg IV. Patient was seen at bedside on BiPAP with daughter present. Following history was provided by patient's daughter as patient with difficulty speaking on BiPAP. she stated that in April the patient was deflated today and developed to a blood clot and was there for approximately 3 weeks. She then went to acute rehab for about 1 month, she came home for a week but was too weak, so [facility]. She has been home since with home health PT/OT/nursing. Since she has been home she has had dyspnea and family has noted heavy breathing. This has been unchanged since although this morning it was reported that the patient just could not catch her breath. When she saw GI on Wednesday, they was concerned about the heavy breathing and ordered a CXR which was reportedly negative. The patient's daughter stated that they have been trying to get her home oxygen because she does not use her CPAP at night but with the recent hospitalization they have not yet set this up. She has no previous history of COPD, asthma, CHF. She has been hospitalized multiple times over the past year due to hypoxia suspected secondary to aspiration. The patient was on BiPAP and stated that her breathing is much improved. She denies current dyspnea. She stated that she did feel dyspneic this morning, she then got anxious and started breathing heavily. She also stated that she had sharp chest pain when she was short of breath that is now resolved with the BiPAP. She denies the chest pain changing with deep inspiration. It did not radiate. She also endorses fatigue for the past few weeks. Patient's daughter stated that she has difficulty with minimal ADLs. The patient did not take her home medications this morning. Blood pressure was 211/92 on exam, home BP medications ordered. Patient wishes to be DNR/DNI status. Discussed potential need for intubation if BiPAP does not resolve tachypnea, patient would not want intubated under any circumstance. 1400: discussed with respiratory therapy at 1400, trialed patient off BiPAP and patient tolerated well. 98% on room air. will keep off BiPAP for now and repeat VBG. Discharge Exam Constitutional WD/WN, vitals as above Respiratory normal respiratory effort, lungs clear to auscultation Cardiovascular Rate/Rhythm: regular rhythm and + irregularly irregular Discharge Plan Discharge Items Patient Disposition: Home - Home Health Services Reason For Visit: HYPERVENTILATION SYNDROME, CHEST PAIN WORKUP Discharge Diagnosis: Hyperventilation syndrome Activity: Resume your previous activity Non-emergency contact: Primary Care Provider Call non-emergency contact if: you have any medication questions and your symptoms worsen Follow-up/Referrals: Edgar Fine PA-C [Primary Care Provider] - (PLEASE CALL YOUR PRIMARY CARE PROVIDER TO SCHEDULE A HOSPITAL DISCHARGE FOLLOW-UP APPOINTMENT WITHIN 7-10 DAYS) Diet: Regular Addtl Attending Provider Instructions: You were admitted overnight at [facility] due to acute respiratory distress. You were diagnosed with hyperventilation syndrome which can happen in period of high anxiety. No other causes were found. For your ongoing reflux symptoms recommend taking Maalox (over the counter antacid) as needed in addition to you omeprazole and famotidine. Recommend following up with your primary care provider for ongoing management of your anxiety. Sertraline has a higher likelihood of gastrointestinal side effects than alternative anti- anxiety medications and recommend discussing this further with your primary care provider. No changes to your prescription medications have been made. Kind regards, Dr Roberto Raza Pending Studies at Discharge: No Stand-Alone Forms: My [facility], Smoking Cessation Medications and DC Order Prescriptions: Continued donepezil 5 mg tablet 5 mg PO HS atorvastatin 20 mg tablet 20 mg PO HS sertraline 50 mg tablet 50 mg PO QAM docusate sodium 100 mg Tablet 200 mg PO QPM omeprazole 40 mg capsule,delayed release(DR/EC) 40 mg PO QAM metoprolol tartrate 100 mg tablet 100 mg PO BID diltiazem HCl [Tiadylt ER] 180 mg capsule,extended release 24hr 360 mg PO QAM isosorbide mononitrate 30 mg tablet extended release 24 hr 30 mg PO QAM Eliquis 2.5 mg tablet 2.5 mg PO BID levothyroxine 100 mcg tablet 100 mcg PO QAM famotidine 20 mg tablet 20 mg PO HS melatonin 3 mg tablet 3 mg PO HS PRN (Reason: Insomnia) cranberry extract 500 mg Tablet 1,000 mg PO QAM Rx Instructions: administer with meals ibandronate 150 mg tablet 150 mg PO MONTHLY furosemide [Lasix] 20 mg tablet 20 mg PO DAILY PRN (Reason: edema/swelling of legs) Qty: 30 0RF zolpidem 10 mg tablet 5 mg PO HS PRN (Reason: Insomnia) sennosides [senna] 8.6 mg tablet 8.6 mg PO QAM PRN (Reason: Constipation) cyanocobalamin (vitamin B-12) [Vitamin B-12] 2,500 mcg tablet, sublingual 5,000 mcg PO QAM polyethylene glycol 3350 [Miralax] 17 gram powder in packet 17 g PO DAILY PRN (Reason: Constipation) magnesium oxide 400 mg magnesium tablet 400 mg PO QAM Discharge Orders: Discharge Order (Routine); Ordered 09/01/24 Ordered By: Roberto Raza Admission Data Admit Date/Time: 08/31/24 13:28 Attending Provider: Roberto Raza Admit Provider: Roberto Raza Primary Care Provider: Edgar Fine Other Providers: Roberto Raza; [facility] Other Interventions: Discharge Summary Assessment (RN) Last Done: 09/01/24 14:56 Hospital Stay Data Consultations 08/31/24 11:58 ED Decision to Admit Stat Pending Results Patient Have Any Pending Studies at Discharge: No Discharge Instructions Given to Patient (Per Discharging Provider) You were admitted overnight at [facility] due to acute respiratory distress. You were diagnosed with hyperventilation syndrome which can happen in period of high anxiety. No other causes were found. For your ongoing reflux symptoms recommend taking Maalox (over the counter antacid) as needed in addition to you omeprazole and famotidine. Recommend following up with your primary care provider for ongoing management of your anxiety. Sertraline has a higher likelihood of gastrointestinal side effects than alternative anti- anxiety medications and recommend discussing this further with your primary care provider. No changes to your prescription medications have been made. Kind regards, Dr Roberto Raza Total Time Total Time Spent Total Time Spent (In Minutes): 40 Coding Level of Care Code 82470 INP/OBS DISCH >30 MIN Diagnoses Acute hyperventilation syndrome F45.8 Chest pain R07.9 Chest pain type: unspecified Essential hypertension I10 Permanent atrial fibrillation I48.21 Weakness R53.1 History of arterial occlusion Z86.79 Asymptomatic bacteriuria R82.71 Hypothyroidism E03.9 Home Health Attestation I certify that this patient is under my care and that I, or a physicians ass istant working with me, had a face to-face encounter that meets the home health iata-ke-olpu encounter requirements with this patient. The encounter with the patient was in whole, or in part, for the following medical condition, which is the primary reason for home health care (list medical condition): I certify that, based on my findings, the following services are medically necessary home health services: My clinical findings support the need for the above services because: Further, I certify that my clinical findings support that this patient is homebound (i.e. absences from home require considerable and taxing effort and are for medical reasons or synagogue services or infrequently or of short duration when for other reasons) because: Certification for Home Health Services: Based on the above findings, I certify that this patient is confined to the home and needs intermittent longterm care, physical therapy and/or speech therapy or continues to need occupational therapy. The patient is under my care, and I have initiated the establishment of the plan of care. This patient will be followed by a physician who will periodically review the plan of care.
[2024-09-01 14:59] VITALS: BP 193/74; PULSE 101
== END 2024-09-01 15:32 | disposition home health service (06) | DRG 882 ==
LOC: ED 10:15 → INTOOBSV 13:28 → 2W 13:28

== ENCOUNTER 2024-10-10 20:36 | Inpatient (IN) ==
--- NOTE | 2024-10-10 21:30 | Emergency Department Note ---
Impression & Plan Chest pain, Nausea vomiting and diarrhea ED Provider Note CHIEF COMPLAINT: Flulike symptoms HISTORY OF PRESENT ILLNESS: This 88-year-old female patient presents to the emergency department via EMS for evaluation of nausea, vomiting, diarrhea that started a few hours ago. She reports epigastric pain with upper central chest pain, since 8 PM. She reports the pain radiates to the mid back. EMS states the patient has been hypertensive, and does have a past medical history of this. She received 324 of ASA, and nitro x 1 prior to arrival. Patient reports no relief of symptoms with these medications. She has been vomiting, and states she is incredibly nauseous. She reports she is also having diarrhea, however no dysuria. She reports body aches, without fever. Patient has a history of atrial fibrillation, with daily Eliquis. REVIEW OF SYSTEMS: A review of systems was performed with positives and pertinent negatives listed in the history of present illness. All other systems were reviewed and are negative. ALLERGIES: See below MEDICATIONS: See below PMH: See below PHYSICAL EXAM: VITALS: Vitals are noted on the nurse's note and reviewed by myself. Vital signs stable. GENERAL: 88-year-old female, in no acute distress, nondiaphoretic, well- developed well-nourished. SKIN: The skin was without rashes, erythema, edema, or bruising. HEAD: Normocephalic atraumatic. EYES: Pupils equal round and reactive to light and accommodation. Conjunctivae without injection, sclerae without icterus. Extraocular movements intact. NECK: Supple without nuchal rigidity. No lymphadenopathy. No JVD. HEART: Irregular rate and rhythm without murmurs gallops or rubs. LUNGS: Clear to auscultation bilaterally without wheezes, rales or rhonchi. No retractions or accessory muscle use. ABDOMEN: Positive bowel sounds x 4. Soft, TTP epigastrium, no rebound tenderness, guarding present. MUSCULOSKELETAL: No muscle atrophy, erythema, or edema noted. Normal gait. Strength 5/5 throughout. NEURO: Patient was alert and oriented to person place and time. No focal neurological deficits. MEDICAL DECISION MAKING: The patient is an 88-year-old female who arrives to the emergency department for evaluation of the above-stated complaint. The patient arrived during a time of high acuity, and high-volume. A saline lock was established, CBC, CMP, lipase, urinalysis, troponin were obtained. CBC shows no leukocytosis, with a stable hemoglobin and hematocrit, CMP unremarkable, lipase negative, troponin negative. Repeat troponin negative. Urinalysis not obtained while patient in department. EKG was obtained which per my interpretation shows rapid A-fib at a rate of 116 bpm, with a marked ST abnormality. Previous for comparison from August 2024 shows increase in right, with no other significant changes. Due to the patient's significant tenderness to palpation, rapid onset of symptoms, and description of pain radiating to the mid back, CT imaging of the chest abdomen and pelvis was indicated to rule out dissection, or other abnormality. CT imaging shows known aortic aneurysm measuring 4.1 cm, however no other significant abnormality. Patient was provided IV fluids, and IV Tylenol as well as IV Zofran. Upon reevaluation she was not vomiting, however p.o. trial was performed which was unsuccessful. The patient then began to have profuse vomiting. I do believe she has a significant gastroenteritis, with intractable vomiting. Patient still had severe epigastric pain. She was provided 50mcg IV fentanyl, as well as IV Pepcid. Admission was deemed necessary as the patient was unable to tolerate p.o. fluids. I spoke with case management, who facilitated contact with the [facility] hospitalist group. Dr. Molly Alexander agreed to accept the patient under her care for further patient workup. Please refer to her documentation. DIFFERENTIAL DIAGNOSIS: Cardiac ischemia, aortic dissection, pulmonary embolism, pneumothorax, pneumonia, pericarditis, myocarditis, esophageal rupture, GERD, cholecystitis, pancreatitis, musculoskeletal, viral illness, infection, as well as other pathologies. Continuous laborer hoisting: Order was placed for continuous laborer hoisting. Patient was placed on the laborer hoisting. Patient was noted to be in rapid A-fib at an initial rate of 108 bpm. The patient's case was discussed with Dr. Rocha, who agreed with my evaluation and treatment plan. The chart was completed utilizing [employer] voice recognition software. Grammatical errors, random word insertions, pronoun errors, and incomplete sentences are an occasional consequence of this system due to software limitations, ambient noise, and hardware issues. Any formal questions or concerns about the content, text, or information contained within the body of this dictation should be directly addressed to the physician for clarification. Past Med/Surg History Problem List (Updated 10/11/24 @ 03:05 by Molly Alexander DO) Epigastric discomfort Nausea vomiting and diarrhea Asymptomatic bacteriuria Acute respiratory alkalosis (Acute) Chest pain (Acute) History of arterial occlusion Acute hyperventilation syndrome (Acute) Acute hypoxic respiratory failure Colonic thickening Arterial occlusion, lower extremity (Acute) Essential hypertension Permanent atrial fibrillation (Acute) Presence of permanent cardiac pacemaker PND (post-nasal drip) Stroke (Acute) Pericardial effusion Thrombocytopenia Female bladder prolapse Acute metabolic encephalopathy UTI (urinary tract infection) Acute diastolic CHF (congestive heart failure) Elevated troponin Hypokalemia (Acute) Anticoagulation therapy not indicated Dizziness Hypothyroidism DVT prophylaxis Insomnia Depression (Chronic) B12 deficiency Peripheral neuropathy (Chronic) 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) Cellulitis of left orbit (Acute) Stomach ulcer (Acute) GERD (gastroesophageal reflux disease) (Chronic) Vertigo (Acute) Weakness (Acute) Medical History Aspiration into lower respiratory tract Periorbital cellulitis of left eye Hyperlipidemia LDL goal <70 Thoracic back pain CVA (cerebral vascular accident) Epidural hematoma Weight loss, unintentional Tricuspid regurgitation Tachy-jazmine syndrome Pulmonary hypertension Dyslipidemia Cerebrovascular disease Benign hypertension Aortic regurgitation Anxiety disorder Headache Surgical History H/O cervical spine surgery "cervical decompression with evacuation of cervical epidural hematoma 09/22/2012" S/P tonsillectomy H/O: hysterectomy History of bilateral tubal ligation History of appendectomy Family History Other Family history non-contributory Social History Smoking Status: Unknown if ever smoked Do You Dip or Chew Tobacco: No; Hx Alcohol Use: No Hx Substance Use: No Preferred Language: Uzbek Communication Ability: Effective Card Fixer Required: No Beliefs That Will Affect Care: None marital status: / Current Living Situation: Alone Current Living Situation Comment: Lives at home with grandson Feels Safe at Home: Yes Assistive Devices: Bedside Commode, Cane, CPAP, Walker and Wheelchair Allergies Allergies Allergy/AdvReac Type Severity Reaction Status Date / Time oxycodone AdvReac Intermediate HALLUCINATI Verified 08/31/24 13:03 ONS morphine AdvReac Unknown DELIRIUM Verified 08/31/24 13:03 Home Meds Home Medications Medication Instructions Recorded Confirmed omeprazole 40 mg capsule,delayed 40 mg PO QAM 05/06/18 10/10/24 release atorvastatin 20 mg tablet 20 mg PO HS 11/16/18 10/10/24 docusate sodium 100 mg tablet 100 mg PO DAILY PRN cnstipation 11/16/18 10/10/24 sertraline 50 mg tablet 50 mg PO QAM 11/16/18 10/10/24 donepezil 5 mg tablet 5 mg PO HS 02/09/22 10/10/24 metoprolol tartrate 100 mg tablet 100 mg PO Q12 05/11/24 10/10/24 magnesium oxide 400 mg PO QAM 05/13/24 10/10/24 apixaban 2.5 mg tablet (Eliquis) 2.5 mg PO BID 08/31/24 10/10/24 famotidine 20 mg tablet 20 mg PO DAILY 08/31/24 10/10/24 isosorbide mononitrate 30 mg 30 mg PO QAM 08/31/24 10/10/24 tablet,extended release 24 hr levothyroxine 100 mcg tablet 100 mcg PO QAM 08/31/24 10/10/24 Cranberry 4200mg With Vit C 2 softgel PO DAILY 10/10/24 10/10/24 acetaminophen 500 mg tablet 1,000 mg PO .EVERY 4-6 HR PRN Flu 10/10/24 10/10/24 Symptoms aluminum-mag hydroxide-simethicone 20 ml PO DAILY PRN upset stomach 10/10/24 10/10/24 400 mg-400 mg-40 mg/5 mL oral susp (Antacid Maximum Strength) cyanocobalamin (vitamin B-12) 5,000 mcg sublingual DAILY 10/10/24 10/10/24 2,500 mcg sublingual tablet (Vitamin B-12) diltiazem HCl 180 mg 180 mg PO DAILY 10/10/24 10/10/24 capsule,extended release 24 hr, controlled furosemide 20 mg tablet (Lasix) 20 mg PO DAILY PRN weight gain of 10/10/24 10/10/24 3 lbs lidocaine 4 % topical patch 1 patch topical DAILY 10/10/24 10/10/24 loratadine 10 mg tablet 10 mg PO DAILY 10/10/24 10/10/24 melatonin 10 mg chewable tablet 10 mg PO HS 10/10/24 10/10/24 nitroglycerin 0.4 mg sublingual 0.4 mg sublingual UD PRN Chest Pain 10/10/24 10/10/24 tablet (Nitrostat) ondansetron 4 mg disintegrating 4 mg PO .EVERY 6-8 HOURS PRN 10/10/24 10/10/24 tablet Nausea And Vomiting zolpidem 10 mg tablet 5 mg PO HS 10/10/24 10/10/24 Results & Data (ED) Vital Signs Vital Signs - 24 hr 10/10/24 20:46 10/10/24 20:50 10/10/24 21:12 Temperature 37.4 C Temperature Source Oral Pulse Rate 96 H 111 H 108 H Pulse Rate [Apical] Pulse Rate from SpO2 Sensor Respiratory Rate 24 19 Respiratory Effort / Characteristics Respiratory Depth Blood Pressure 205/122 H 202/121 H Blood Pressure [Right Arm] Blood Pressure Mean 149 148 Blood Pressure Mean [Right Arm] Blood Pressure Position Sitting Pulse Oximetry 95 94 Oxygen Delivery Method Room Air Room Air Oxygen Flow Rate Sepsis Recent Fever Within 48 Hours No Sepsis New/Unexplained Change in Mental Status No Sepsis Action Taken by Nursing No Action Required Oxygen Flow Rate - Titration Pulse Oximetry Post Tiitration 10/10/24 21:30 10/10/24 22:30 10/10/24 22:50 Temperature Temperature Source Pulse Rate 117 H 93 H Pulse Rate [Apical] Pulse Rate from SpO2 Sensor Respiratory Rate 25 H 24 Respiratory Effort / Characteristics Respiratory Depth Blood Pressure 202/121 H Blood Pressure [Right Arm] Blood Pressure Mean 148 Blood Pressure Mean [Right Arm] Blood Pressure Position Pulse Oximetry 96 87 L Oxygen Delivery Method Room Air Nasal Cannula Oxygen Flow Rate Sepsis Recent Fever Within 48 Hours Sepsis New/Unexplained Change in Mental Status Sepsis Action Taken by Nursing Oxygen Flow Rate - Titration 2 Pulse Oximetry Post Tiitration 98 10/10/24 23:03 10/11/24 00:00 10/11/24 01:00 Temperature Temperature Source Pulse Rate 93 H Pulse Rate [Apical] 81 Pulse Rate from SpO2 Sensor 99 H Respiratory Rate 27 H 22 Respiratory Effort / Characteristics Non-Labored Spontaneous Respiratory Depth Normal Blood Pressure 193/93 H Blood Pressure [Right Arm] 189/91 H 187/84 H Blood Pressure Mean 126 Blood Pressure Mean [Right Arm] 123 118 Blood Pressure Position Pulse Oximetry 99 97 97 Oxygen Delivery Method Nasal Cannula Room Air Room Air Oxygen Flow Rate 1 Sepsis Recent Fever Within 48 Hours Sepsis New/Unexplained Change in Mental Status Sepsis Action Taken by Nursing Oxygen Flow Rate - Titration Pulse Oximetry Post Tiitration Home Medications Current Medication List: was personally reviewed by me Laboratory Data Attestation: I reviewed the patient's lab results. 10/10/24 22:30 10/10/24 22:30 Lab Results 10/10/24 10/10/24 10/11/24 Range/Units 20:45 22:30 01:04 WBC 9.88 (4.8-10.8) K/ul RBC 4.24 (4.20-5.40) M/uL Hgb 12.1 (12.0-16.0) g/dl Hct 35.8 L (37.0-47.0) % MCV 84.4 (80.0-100.0) fL MCH 28.5 (25.0-34.0) pg MCHC 33.8 (32.0-36.0) g/dL RDW Std Deviation 47.3 H (36.4-46.3) fL RDW Coeff of Alfredo 15.5 H (11.5-14.5) % Plt Count 170 (130-400) K/uL MPV 12.5 H (9.4-12.4) fL Immature Gran % (Auto) 0.4 % Neut % (Auto) 90.6 % Lymph % (Auto) 4.6 % Taylor % (Auto) 4.1 % Eos % (Auto) 0.1 % Baso % (Auto) 0.2 % Neut # (Auto) 8.95 H (1.40-6.50) K/uL Lymph # (Auto) 0.45 L (1.20-3.40) K/uL Taylor # (Auto) 0.41 (0.11-0.59) K/uL Eos # (Auto) 0.01 (0.00-0.50) K/uL Baso # (Auto) 0.02 (0.00-0.20) K/uL Immature Gran # (Auto) 0.04 (0.01-0.20) K/uL Ovalocytes 1+ Sodium 143 (136-145) mmol/L Potassium 3.6 (3.5-5.1) mmol/L Chloride 110 H (98-107) mmol/L Carbon Dioxide 24 (21-32) mmol/L Anion Gap 9 (3-11) BUN 27 H (6-23) mg/dl Creatinine 0.83 (0.6-1.2) mg/dl Est Cr Clr Drug Dosing 37.8 ml/min eGFR 68.19 BUN/Creatinine Ratio 32.5 H (10-20) Glucose 96 (70-99(Fasting)) mg/dl Calcium 9.3 (8.6-10.3) mg/dl Total Bilirubin 0.8 (0.2-1.0) mg/dl AST 23 (13-39) U/L ALT 19 (7-52) U/L Alkaline Phosphatase 68 (34-104) U/L Troponin I High Sens 8.1 10.0 (0-14) pg/ml Total Protein 6.2 (6.0-8.3) gm/dl Albumin 4.2 (3.4-5.0) gm/dl Globulin 2.0 L (2.5-4.0) gm/dl Albumin/Globulin Ratio 2.1 H (0.9-2) Lipase 35 (11-82) U/L Adenovirus (PCR) Not Detected (NotDetected) B. pertussis DNA (PCR) Not Detected (NotDetected) B.parapertussis DNA PCR Not Detected (NotDetected) C. pneumoniae DNA (PCR) Not Detected (NotDetected) Coronavirus OC43 (PCR) Not Detected (NotDetected) Coronavirus HKU1 (PCR) Not Detected (NotDetected) Coronavirus 229E (PCR) Not Detected (NotDetected) SARS-CoV-2 (PCR) Not Detected (NotDetected) Coronavirus NL63 (PCR) Not Detected (NotDetected) Human Metapneumovir PCR Not Detected (NotDetected) Influenza Type A (PCR) Not Detected (NotDetected) Influenza Type B (PCR) Not Detected (NotDetected) M. pneumoniae (PCR) Not Detected (NotDetected) Parainfluenza 1 (PCR) Not Detected (NotDetected) Parainfluenza 2 (PCR) Not Detected (NotDetected) Parainfluenza 3 (PCR) Not Detected (NotDetected) Parainfluenza 4 (PCR) Not Detected (NotDetected) RSV (PCR) Not Detected (NotDetected) Entero/Rhino (PCR) Not Detected (NotDetected) Administered Medications Discontinued Medications Fentanyl Citrate (Fentanyl Citrate Pf 100 Mcg/2 Ml Vial) 50 mcg IV NOW STA Stop: 10/11/24 01:59 Last Admin: 10/11/24 02:15 Dose: 50 mcg Documented By: SHELBI Sodium Chloride (Nss) 500 mls @ 999 mls/hr IV .Q31M ONE Stop: 10/10/24 22:16 Last Infusion: 10/10/24 23:07 Dose: Infused Documented By: Admin: 10/10/24 22:01 Dose: 999 mls/hr Documented By: SHELBI Acetaminophen (Ofirmev) 1,000 mg in 100 mls @ 400 mls/hr IV NOW STA Stop: 10/10/24 22:00 Last Infusion: 10/10/24 22:37 Dose: Infused Documented By: Admin: 10/10/24 22:02 Dose: 400 mls/hr Documented By: SHELBI Famotidine (Pepcid 20mg Iv Push) 20 mg in 5 mls @ 2.5 mls/min IV NOW STA Stop: 10/11/24 01:54 Last Admin: 10/11/24 02:15 Dose: 2.5 mls/min Documented By: SHELBI Ioversol (Optiray 320 125ml) 125 ml IV ONCE ONE Stop: 10/10/24 23:53 Last Admin: 10/10/24 23:52 Dose: 118 ml Documented By: ERI Ondansetron HCl (Ondansetron Inj 2 Mg/Ml 2 Ml Vial) 4 mg IV NOW STA Stop: 10/10/24 21:42 Last Admin: 10/10/24 21:53 Dose: 4 mg Documented By: SHELBI Imaging Data Attestation: I personally reviewed and interpreted this imaging study as follows: Radiologist's Impression: Abdomen/Pelvis CTA 10/10/24 22:02 EXAM: CT angio abd pelvis wo/w con CLINICAL HISTORY: r/o dissection TECHNIQUE: Contrast enhanced thin slice CT angiography scan of the abdominal aorta was performed wihtout and with intravenous contrast. Angiographic images were processed, 3D MIP images were acquired for interpretation. Contiguous axial images were obtained. Reformatted coronal and sagittal images were also reviewed. If IV contrast material had not been administered, the likelihood of detecting abnormalities relevant to the patients condition would have been substantially decreased. CT scan was performed according to ALARA (as low as reasonable achievable). COMPARISON: 01 August 2024 FINDINGS: Diffuse atherosclerotic calcifications are noted involving abdominal aorta and its major branches causes multifocal minimal luminal narrowing. Abdominal aorta is normal in course, calibre and opacification. Origin of coeliac artery, superior mesenteric artery , bilateral main renal and lumbar arteries are normal with no hemodynamically significant ostial stenosis noted. Bilateral common, external and internal iliac arteries are normal in course, caliber and opacification. Solid abdominal organs including liver, spleen, pancreas and bilateral kidneys reveal no significant abnormality. Bowel loops are grossly unremarkable. No evidence of ascites. IMPRESSION: 1. Diffuse atherosclerotic calcifications are noted involving abdominal aorta and its major branches causes multifocal minimal luminal narrowing. 2. No obvious aneurysm or dissection. 3. No other new interval abnormality since prior study. Electronically signed by Nilo Bocanegra 10-11-2024 01:10 AM Chest CTA 10/10/24 22:02 EXAM: CT angio chest dissec wo/w con CLINICAL HISTORY: r/o dissection TECHNIQUE: Contiguous axial images were obtained from the neck base through the upper abdomen following intravenous administration of iodinated contrast material. Angiographic images were processed, 3D MIP images were acquired for interpretation. If IV contrast material had not been administered, the likelihood of detecting abnormalities relevant to the patient's condition would have been substantially decreased. Coronal and sagittal 3-D MIPs were likewise performed and indicated to increase the sensitivity of detectin diffuse clinically relevant pathology. CT scan was performed according to ALARA (as low as reasonable achievable). COMPARISON: 09 aug 2024. FINDINGS: Mild aneurysmal dilatation of ascending aorta with maximum diameter measures up to 4.1 cm. Mild cardiomegaly noted. Few subpleural atelectatic bands are noted in bilateral lower lobes. Adequate contrast bolus without evidence of pulmonary embolism. The central airways are patent. Rest of lungs are clear. No pleural effusion. The heart, aorta, and pulmonary arteries are of normal size and configuration. There are coronary artery and aortic atherosclerotic calcifications. Minimal pericardial effusion is identified. The thyroid is unremarkable. No mediastinal, hilar, or axillary lymphadenopathy is noted. No suspicious lytic or sclerotic osseous lesions are identified. IMPRESSION: 1. No evidence of pulmonary embolism 2. Mild aneurysmal dilatation of ascending aorta with maximum diameter measures up to 4.1 cm. 3. Mild cardiomegaly noted with minimal pericardial effusion. 4. Few subpleural atelectatic bands are noted in bilateral lower lobes. 5. Prior bilateral pleural effusion is completely resolved in present scan. Electronically signed by Nilo Bocanegra 10-11-2024 01:05 AM Discharge Plan Visit Data Chief Complaint: Flu Like Symptoms Stated Complaint: Flu Like Symptoms ED Provider: Noam Rocha ED Midlevel Provider: No Brock Discharge Problem: Chest pain, Nausea vomiting and diarrhea Forms Stand Alone Forms: [facility] [employer] Prescriptions Prescriptions: No Action donepezil 5 mg tablet 5 mg PO HS atorvastatin 20 mg tablet 20 mg PO HS sertraline 50 mg tablet 50 mg PO QAM docusate sodium 100 mg Tablet 100 mg PO DAILY PRN (Reason: cnstipation) omeprazole 40 mg capsule,delayed release(DR/EC) 40 mg PO QAM metoprolol tartrate 100 mg tablet 100 mg PO Q12 isosorbide mononitrate 30 mg tablet extended release 24 hr 30 mg PO QAM Eliquis 2.5 mg tablet 2.5 mg PO BID levothyroxine 100 mcg tablet 100 mcg PO QAM famotidine 20 mg tablet 20 mg PO DAILY loratadine 10 mg Tablet 10 mg PO DAILY melatonin 10 mg Tablet,Chewable 10 mg PO HS furosemide [Lasix] 20 mg tablet 20 mg PO DAILY PRN (Reason: weight gain of 3 lbs) cyanocobalamin (vitamin B-12) [Vitamin B-12] 2,500 mcg Tablet, Sublingual 5,000 mcg SUBLINGUAL DAILY nitroglycerin [Nitrostat] 0.4 mg Tablet, Sublingual 0.4 mg sublingual UD PRN (Reason: Chest Pain) Cranberry 4200mg With Vit C 2 softgel PO DAILY acetaminophen 500 mg Tablet 1,000 mg PO .EVERY 4-6 HR MDD 3g PRN (Reason: Flu Symptoms) alum-mag hydroxide-simeth [Antacid Maximum Strength] 400-400-40 mg/5 mL Suspension 20 ml PO DAILY PRN (Reason: upset stomach) diltiazem HCl 180 mg capsule,ext.rel 24h degradable 180 mg PO DAILY lidocaine 4 % Adhesive Patch,Medicated 1 patch TOPICAL DAILY Rx Instructions: on 12 hours off 12 hours zolpidem 10 mg Tablet 5 mg PO HS Rx Instructions: 1/2 tablet dose ondansetron 4 mg Tablet,Disintegrating 4 mg PO .EVERY 6-8 HOURS PRN (Reason: Nausea And Vomiting) magnesium oxide 400 mg magnesium tablet 400 mg PO QAM Referrals Referrals: Edgar Fine PA-C [Primary Care Provider] -
[2024-10-10] MEDS: ONDANSETRON INJ 2 MG/ML 2 ML VIAL IV STA (21:53)
[2024-10-10 21:54] LABS: Adenovirus PCR Not Detected (NotDetected); Bordetella parapertussis PCR Not Detected (NotDetected); Bordetella pertussis PCR Not Detected (NotDetected); Chlamydia pneumoniae PCR Not Detected (NotDetected); Coronavirus 229E PCR Not Detected (NotDetected); Coronavirus CoV-2 (COVID19)PCR Not Detected (NotDetected); Coronavirus HKU1 PCR Not Detected (NotDetected); Coronavirus NL63 PCR Not Detected (NotDetected); Coronavirus OC43PCR Not Detected (NotDetected); Human Metapneumovirus PCR Not Detected (NotDetected); Influenza A PCR Not Detected (NotDetected); Influenza B PCR Not Detected (NotDetected); Mycoplasma pneumoniae PCR Not Detected (NotDetected); Parainfluenza Virus 1 PCR Not Detected (NotDetected); Parainfluenza Virus 2 PCR Not Detected (NotDetected); Parainfluenza Virus 3 PCR Not Detected (NotDetected); Parainfluenza Virus 4 PCR Not Detected (NotDetected); Respiratory Syncytial VirusPCR Not Detected (NotDetected); Rhinovirus/Enterovirus PCR Not Detected (NotDetected)
[2024-10-10] MEDS: SODIUM CHLORIDE 0.9% 500 ML IV ONE (22:01)
[2024-10-10] MEDS: ACETAMINOPHEN 1,000 MG/100 ML VIAL IV STA (22:02)
[2024-10-10 22:54] LABS: Hematocrit (blood only) 35.8 % (37.0-47.0); Hemoglobin 12.1 g/dl (12.0-16.0); Mean Corpuscular Hemoglobin 28.5 pg (25.0-34.0); Mean Corpuscular Hgb Conc 33.8 g/dL (32.0-36.0); Mean Corpuscular Volume 84.4 fL (80.0-100.0); Mean Platelet Volume 12.5 fL (9.4-12.4); Platelet Count 170 K/uL (130-400); RDW Coefficient of Variation 15.5 % (11.5-14.5); RDW Standard Deviation 47.3 fL (36.4-46.3); Red Blood Count 4.24 M/uL (4.20-5.40); White Blood Count 9.88 K/ul (4.8-10.8)
[2024-10-10 23:25] LABS: Albumin Globulin Ratio 2.1 (0.9-2); Albumin Level 4.2 gm/dl (3.4-5.0); BUN Creatinine Ratio 32.5 (10-20); Bilirubin,Total 0.8 mg/dl (0.2-1.0); Calcium 9.3 mg/dl (8.6-10.3); Creatinine Clr Calc Pharmacy 37.8 ml/min; Potassium 3.6 mmol/L (3.5-5.1); Total Protein 6.2 gm/dl (6.0-8.3)
[2024-10-10 23:30] LABS: Basophils # (auto) 0.02 K/uL (0.00-0.20); Basophils % (auto) 0.2 %; Eosinophils # (auto) 0.01 K/uL (0.00-0.50); Eosinophils % (auto) 0.1 %; Immature Granulocytes # (auto) 0.04 K/uL (0.01-0.20); Immature Granulocytes % (auto) 0.4 %; Lymphocytes # (auto) 0.45 K/uL (1.20-3.40); Lymphocytes % (auto) 4.6 %; Monocytes # (auto) 0.41 K/uL (0.11-0.59); Monocytes % (auto) 4.1 %; Neutrophils # (auto) 8.95 K/uL (1.40-6.50); Neutrophils % (auto) 90.6 %; Ovalocytes 1+
[2024-10-10 23:33] LABS: Troponin I High Sensitivity 8.1 pg/ml (0-14)
[2024-10-10] MEDS: OPTIRAY 320 125ml IV ONE (23:52)
--- NOTE | 2024-10-11 01:06 | CT Scan Report ---
EXAM: CT angio chest dissec wo/w con CLINICAL HISTORY: r/o dissection TECHNIQUE: Contiguous axial images were obtained from the neck base through the upper abdomen following intravenous administration of iodinated contrast material. Angiographic images were processed, 3D MIP images were acquired for interpretation. If IV contrast material had not been administered, the likelihood of detecting abnormalities relevant to the patient's condition would have been substantially decreased. Coronal and sagittal 3-D MIPs were likewise performed and indicated to increase the sensitivity of detectin diffuse clinically relevant pathology. CT scan was performed according to ALARA (as low as reasonable achievable). COMPARISON: 09 aug 2024. FINDINGS: Mild aneurysmal dilatation of ascending aorta with maximum diameter measures up to 4.1 cm. Mild cardiomegaly noted. Few subpleural atelectatic bands are noted in bilateral lower lobes. Adequate contrast bolus without evidence of pulmonary embolism. The central airways are patent. Rest of lungs are clear. No pleural effusion. The heart, aorta, and pulmonary arteries are of normal size and configuration. There are coronary artery and aortic atherosclerotic calcifications. Minimal pericardial effusion is identified. The thyroid is unremarkable. No mediastinal, hilar, or axillary lymphadenopathy is noted. No suspicious lytic or sclerotic osseous lesions are identified. IMPRESSION: 1. No evidence of pulmonary embolism 2. Mild aneurysmal dilatation of ascending aorta with maximum diameter measures up to 4.1 cm. 3. Mild cardiomegaly noted with minimal pericardial effusion. 4. Few subpleural atelectatic bands are noted in bilateral lower lobes. 5. Prior bilateral pleural effusion is completely resolved in present scan. Electronically signed by Nilo Bocanegra 10-11-2024 01:05 AM
--- NOTE | 2024-10-11 01:11 | CT Scan Report ---
EXAM: CT angio abd pelvis wo/w con CLINICAL HISTORY: r/o dissection TECHNIQUE: Contrast enhanced thin slice CT angiography scan of the abdominal aorta was performed wihtout and with intravenous contrast. Angiographic images were processed, 3D MIP images were acquired for interpretation. Contiguous axial images were obtained. Reformatted coronal and sagittal images were also reviewed. If IV contrast material had not been administered, the likelihood of detecting abnormalities relevant to the patients condition would have been substantially decreased. CT scan was performed according to ALARA (as low as reasonable achievable). COMPARISON: 01 August 2024 FINDINGS: Diffuse atherosclerotic calcifications are noted involving abdominal aorta and its major branches causes multifocal minimal luminal narrowing. Abdominal aorta is normal in course, calibre and opacification. Origin of coeliac artery, superior mesenteric artery , bilateral main renal and lumbar arteries are normal with no hemodynamically significant ostial stenosis noted. Bilateral common, external and internal iliac arteries are normal in course, caliber and opacification. Solid abdominal organs including liver, spleen, pancreas and bilateral kidneys reveal no significant abnormality. Bowel loops are grossly unremarkable. No evidence of ascites. IMPRESSION: 1. Diffuse atherosclerotic calcifications are noted involving abdominal aorta and its major branches causes multifocal minimal luminal narrowing. 2. No obvious aneurysm or dissection. 3. No other new interval abnormality since prior study. Electronically signed by Nilo Bocanegra 10-11-2024 01:10 AM
[2024-10-11] MEDS: FAMOTIDINE 20MG IV PUSH 20 MG/5 ML SYR IV STA (02:15)
[2024-10-11] MEDS: fentaNYL citrate PF 100 MCG/2 ML VIAL IV STA (02:15)
--- NOTE | 2024-10-11 02:33 | History & Physical Report ---
Date of Service October 11, 2024 Assessment & Plan (1) Nausea vomiting and diarrhea: Plan: 88yo female presenting with several hours of ongoing nausea, vomiting, diarrhea and PO intolerance. No sick contacts reported, no travel. Possible intake of food leading to symptoms? -Admit to medical with telemetry -Check stool PCR -Check Mg and PO4 and replete as needed -Zofran PRN nausea -Tylenol PRN pain or fever -LR at 80mL/hr x 1L (2) Epigastric discomfort: Plan: Patient presenting with epigastric discomfort as well. Likely secondary to ongoing vomiting -Protonix 40mg IV BID -Pepcid 20mg PO daily -Maalox PRN Plan Chronic Medical Issues: AF - rate controlled -Continue Diltiazem 180mg po daily -Continue Metoprolol 100mg po q12h -Continue Apixaban 2.5mg po BID Hyperlipidemia -Continue Atorvastatin 20mg po qHS Hypertension -Continue isosorbide 30mg po qAM Cognitive impairment -Continue Aricept 5mg po qHS Hypothyroidism -Continue Synthroid 100mcg po daily Depression -Continue Sertraline 50mg po qAM F/E/N - LR at 80mL/hr x 1L, electrolytes WNL - check Mg and PO4 and replete as needed, clear liquids as tolerated Ppx- Continue Apixaban 2.5mg po BID Code - DNR/DNI per discussion with patient Dispo - Admit to medical with telemetry History of Present Illness Chief Complaint: nausea, vomiting, diarrhea Primary Care Provider: Edgar Fine Venus Monroy is an 88yo female with history of HTN, HLP, AF on Eliquis anticoagulation, GERD and prior DVT presenting with nausea, vomiting, abdominal pain and diarrhea. Patient resides at [facility]. She was in her usual state of health today - her daughter visited her earlier today and she was doing well. Around 20:00 she developed nausea with multiple episodes of non-bloody/non-bilious vomiting as well as severe epigastric discomfort and diarrhea. In the ER she has had ongoing nausea and vomiting. Patient denies sick contacts, recent travel or recent antibiotic use. She did eat some potato salad that was approximately 1 week old but reports it tasted fine and had been properly refrigerated. ER Course: Zofran 4mg IV NSS x 500mL Tylenol 1gm IV Pepcid 20mg IV Fentanyl 50mcg IV Allergies Allergy/AdvReac Type Severity Reaction Status Date / Time oxycodone AdvReac Intermediate HALLUCINATI Verified 08/31/24 13:03 ONS morphine AdvReac Unknown DELIRIUM Verified 08/31/24 13:03 Home Medications Medication Instructions Recorded Confirmed Type omeprazole 40 mg capsule,delayed 40 mg PO QAM 05/06/18 10/10/24 History release atorvastatin 20 mg tablet 20 mg PO HS 11/16/18 10/10/24 History docusate sodium 100 mg tablet 100 mg PO DAILY PRN cnstipation 11/16/18 10/10/24 History sertraline 50 mg tablet 50 mg PO QAM 11/16/18 10/10/24 History donepezil 5 mg tablet 5 mg PO HS 02/09/22 10/10/24 History metoprolol tartrate 100 mg tablet 100 mg PO Q12 05/11/24 10/10/24 History magnesium oxide 400 mg PO QAM 05/13/24 10/10/24 History apixaban 2.5 mg tablet (Eliquis) 2.5 mg PO BID 08/31/24 10/10/24 History famotidine 20 mg tablet 20 mg PO DAILY 08/31/24 10/10/24 History isosorbide mononitrate 30 mg 30 mg PO QAM 08/31/24 10/10/24 History tablet,extended release 24 hr levothyroxine 100 mcg tablet 100 mcg PO QAM 08/31/24 10/10/24 History Cranberry 4200mg With Vit C 2 softgel PO DAILY 10/10/24 10/10/24 History acetaminophen 500 mg tablet 1,000 mg PO .EVERY 4-6 HR PRN Flu 10/10/24 10/10/24 History Symptoms aluminum-mag hydroxide-simethicone 20 ml PO DAILY PRN upset stomach 10/10/24 10/10/24 History 400 mg-400 mg-40 mg/5 mL oral susp (Antacid Maximum Strength) cyanocobalamin (vitamin B-12) 5,000 mcg sublingual DAILY 10/10/24 10/10/24 History 2,500 mcg sublingual tablet (Vitamin B-12) diltiazem HCl 180 mg 180 mg PO DAILY 10/10/24 10/10/24 History capsule,extended release 24 hr, controlled furosemide 20 mg tablet (Lasix) 20 mg PO DAILY PRN weight gain of 10/10/24 10/10/24 History 3 lbs lidocaine 4 % topical patch 1 patch topical DAILY 10/10/24 10/10/24 History loratadine 10 mg tablet 10 mg PO DAILY 10/10/24 10/10/24 History melatonin 10 mg chewable tablet 10 mg PO HS 10/10/24 10/10/24 History nitroglycerin 0.4 mg sublingual 0.4 mg sublingual UD PRN Chest Pain 10/10/24 10/10/24 History tablet (Nitrostat) ondansetron 4 mg disintegrating 4 mg PO .EVERY 6-8 HOURS PRN 10/10/24 10/10/24 History tablet Nausea And Vomiting zolpidem 10 mg tablet 5 mg PO HS 10/10/24 10/10/24 History Past Med/Surg History Problem List (Updated 10/11/24 @ 03:05 by Molly Alexander DO) Epigastric discomfort Nausea vomiting and diarrhea Asymptomatic bacteriuria Acute respiratory alkalosis (Acute) Chest pain (Acute) History of arterial occlusion Acute hyperventilation syndrome (Acute) Acute hypoxic respiratory failure Colonic thickening Arterial occlusion, lower extremity (Acute) Essential hypertension Permanent atrial fibrillation (Acute) Presence of permanent cardiac pacemaker PND (post-nasal drip) Stroke (Acute) Pericardial effusion Thrombocytopenia Female bladder prolapse Acute metabolic encephalopathy UTI (urinary tract infection) Acute diastolic CHF (congestive heart failure) Elevated troponin Hypokalemia (Acute) Anticoagulation therapy not indicated Dizziness Hypothyroidism DVT prophylaxis Insomnia Depression (Chronic) B12 deficiency Peripheral neuropathy (Chronic) 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) Cellulitis of left orbit (Acute) Stomach ulcer (Acute) GERD (gastroesophageal reflux disease) (Chronic) Vertigo (Acute) Weakness (Acute) Medical History Aspiration into lower respiratory tract Periorbital cellulitis of left eye Hyperlipidemia LDL goal <70 Thoracic back pain CVA (cerebral vascular accident) Epidural hematoma Weight loss, unintentional Tricuspid regurgitation Tachy-jazmine syndrome Pulmonary hypertension Dyslipidemia Cerebrovascular disease Benign hypertension Aortic regurgitation Anxiety disorder Headache Surgical History H/O cervical spine surgery "cervical decompression with evacuation of cervical epidural hematoma 09/22/2012" S/P tonsillectomy H/O: hysterectomy History of bilateral tubal ligation History of appendectomy Family History Other Family history non-contributory Social History Smoking Status: Unknown if ever smoked Do You Dip or Chew Tobacco: No; Hx Alcohol Use: No Hx Substance Use: No Preferred Language: Gabonese Communication Ability: Effective 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 Beliefs That Will Affect Care: None marital status: / Current Living Situation: Alone Current Living Situation Comment: Lives at home with grandson Feels Safe at Home: Yes Assistive Devices: Bedside Commode, Cane, CPAP, Walker and Wheelchair Review of Systems Review of Systems: All systems reviewed & are unremarkable except as noted in HPI & below Physical Exam Physical Exam: General: patient ill, actively vomiting, able to answer questions appropriately Skin: warm, dry, intact, no rashes or lesions HEENT: NC/AT, PERRL, EOMI, anicteric sclera, conjunctiva without injection, external ear normal to inspection and nontender, nares patent, moist mucus membranes, dentition intact, no oropharyngeal lesions, neck supple, trachea midline, no LAD, no thyromegaly, no JVD Heart: +S1/S2, irregularly irregular, no m/r/g Lungs: equal air entry bilaterally, no rales/rhonchi/wheezes Abd: +BS, soft, ND, epigastric tenderness with no rebound/guarding, no masses/organomegaly/ascites Ext: warm, 2+ pulses in UE/LE bilaterally, no clubbing/cyanosis or edema Neuro: nonfocal, patient AA&O x 4, speech intact, no facial droop, moving all extremities on command with equal strength 5/5 Results & Data Results & Data Vital Signs (Past 12 Hours) Vital Signs Temp Pulse Pulse Resp BP BP Pulse Ox 10/11/24 01:00 81 187/84 H 97 10/11/24 00:00 22 189/91 H 97 10/10/24 23:03 93 H 27 H 193/93 H 99 10/10/24 22:50 87 L 10/10/24 22:30 93 H 24 96 10/10/24 21:30 117 H 25 H 202/121 H 10/10/24 21:12 108 H 19 202/121 H 94 10/10/24 20:50 111 H 10/10/24 20:46 37.4 C 96 H 24 205/122 H 95 O2 Del Method O2 Flow Rate 10/11/24 01:00 Room Air 10/11/24 00:00 Room Air 10/10/24 23:03 Nasal Cannula 1 10/10/24 22:50 Nasal Cannula 10/10/24 22:30 Room Air 10/10/24 21:30 10/10/24 21:12 Room Air 10/10/24 20:50 10/10/24 20:46 Room Air Laboratory Results Laboratory Results WBC 9.88 K/ul (4.8-10.8) 10/10/24 22:30 RBC 4.24 M/uL (4.20-5.40) 10/10/24 22:30 Hgb 12.1 g/dl (12.0-16.0) 10/10/24 22:30 Hct 35.8 % (37.0-47.0) L 10/10/24 22:30 MCV 84.4 fL (80.0-100.0) 10/10/24 22:30 MCH 28.5 pg (25.0-34.0) 10/10/24 22:30 MCHC 33.8 g/dL (32.0-36.0) 10/10/24 22:30 RDW Std Deviation 47.3 fL (36.4-46.3) H 10/10/24 22:30 RDW Coeff of Alfredo 15.5 % (11.5-14.5) H 10/10/24 22:30 Plt Count 170 K/uL (130-400) 10/10/24 22:30 MPV 12.5 fL (9.4-12.4) H 10/10/24 22:30 Immature Gran % (Auto) 0.4 % 10/10/24 22:30 Neut % (Auto) 90.6 % 10/10/24 22:30 Lymph % (Auto) 4.6 % 10/10/24 22:30 [place] % (Auto) 4.1 % 10/10/24 22:30 Eos % (Auto) 0.1 % 10/10/24 22:30 Baso % (Auto) 0.2 % 10/10/24 22: Neut # (Auto) 8.95 K/uL (1.40-6.50) H 10/10/24 22: Lymph # (Auto) 0.45 K/uL (1.20-3.40) L 10/10/24 22:30 [place] # (Auto) 0.41 K/uL (0.11-0.59) 10/10/24 22: Eos # (Auto) 0.01 K/uL (0.00-0.50) 10/10/24 22: Baso # (Auto) 0.02 K/uL (0.00-0.20) 10/10/24: Immature Gran # (Auto) 0.04 K/uL (0.01-0.20) 10/10/24 22: Ovalocytes 1+ 10/10/24 22: Sodium 143 mmol/L (136-145) 10/10/24: Potassium 3.6 mmol/L (3.5-5.1) 10/10/24 22: Chloride 110 mmol/L (98-107) H 10/10/24 22: Carbon Dioxide 24 mmol/L (21-32) 10/10/24 22: Anion Gap 9 (3-11) 10/10/24: BUN 27 mg/dl (6-23) H 10/10/24: Creatinine 0.83 mg/dl (0.6-1.2) 10/10/24: Est Cr Clr Drug Dosing 37.8 ml/min 10/10/24: eGFR 68.19 10/10/24 22: BUN/Creatinine Ratio 32.5 (10-20) H 10/10/24: Glucose 96 mg/dl (70-99(Fasting)) 10/10/24: Calcium 9.3 mg/dl (8.6-10.3) 10/10/24 22: Total Bilirubin 0.8 mg/dl (0.2-1.0) 10/10/24 22:30 AST 23 U/L (13-39) 10/10/24: ALT 19 U/L (7-52) 10/10/24 22:30 Alkaline Phosphatase 68 U/L (34-104) 10/10/24 22:30 Troponin I High Sens 10.0 pg/ml (0-14) 10/11/24 01:04 Total Protein 6.2 gm/dl (6.0-8.3) 10/10/24 22:30 Albumin 4.2 gm/dl (3.4-5.0) 10/10/24 22:30 Globulin 2.0 gm/dl (2.5-4.0) L 10/10/24 22:30 Albumin/Globulin Ratio 2.1 (0.9-2) H 10/10/24 22:30 Lipase 35 U/L (11-82) 10/10/24 22:30 Adenovirus (PCR) Not Detected (NotDetected) 10/10/24 20:45 B. pertussis DNA (PCR) Not Detected (NotDetected) 10/10/24 20:45 B.parapertussis DNA PCR Not Detected (NotDetected) 10/10/24 20:45 C. pneumoniae DNA (PCR) Not Detected (NotDetected) 10/10/24 20:45 Coronavirus OC43 (PCR) Not Detected (NotDetected) 10/10/24 20:45 Coronavirus HKU1 (PCR) Not Detected (NotDetected) 10/10/24 20:45 Coronavirus 229E (PCR) Not Detected (NotDetected) 10/10/24 20:45 SARS-CoV-2 (PCR) Not Detected (NotDetected) 10/10/24 20:45 Coronavirus NL63 (PCR) Not Detected (NotDetected) 10/10/24 20:45 Human Metapneumovir PCR Not Detected (NotDetected) 10/10/24 20:45 Influenza Type A (PCR) Not Detected (NotDetected) 10/10/24 20:45 Influenza Type B (PCR) Not Detected (NotDetected) 10/10/24 20:45 M. pneumoniae (PCR) Not Detected (NotDetected) 10/10/24 20:45 Parainfluenza 1 (PCR) Not Detected (NotDetected) 10/10/24 20:45 Parainfluenza 2 (PCR) Not Detected (NotDetected) 10/10/24 20:45 Parainfluenza 3 (PCR) Not Detected (NotDetected) 10/10/24 20:45 Parainfluenza 4 (PCR) Not Detected (NotDetected) 10/10/24 20:45 RSV (PCR) Not Detected (NotDetected) 10/10/24 20:45 Entero/Rhino (PCR) Not Detected (NotDetected) 10/10/24 20:45 Impressions Abdomen/Pelvis CTA 10/10/24 22:02 EXAM: CT angio abd pelvis wo/w con CLINICAL HISTORY: r/o dissection TECHNIQUE: Contrast enhanced thin slice CT angiography scan of the abdominal aorta was performed wihtout and with intravenous contrast. Angiographic images were processed, 3D MIP images were acquired for interpretation. Contiguous axial images were obtained. Reformatted coronal and sagittal images were also reviewed. If IV contrast material had not been administered, the likelihood of detecting abnormalities relevant to the patients condition would have been substantially decreased. CT scan was performed according to ALARA (as low as reasonable achievable). COMPARISON: 01 August 2024 FINDINGS: Diffuse atherosclerotic calcifications are noted involving abdominal aorta and its major branches causes multifocal minimal luminal narrowing. Abdominal aorta is normal in course, calibre and opacification. Origin of coeliac artery, superior mesenteric artery , bilateral main renal and lumbar arteries are normal with no hemodynamically significant ostial stenosis noted. Bilateral common, external and internal iliac arteries are normal in course, caliber and opacification. Solid abdominal organs including liver, spleen, pancreas and bilateral kidneys reveal no significant abnormality. Bowel loops are grossly unremarkable. No evidence of ascites. IMPRESSION: 1. Diffuse atherosclerotic calcifications are noted involving abdominal aorta and its major branches causes multifocal minimal luminal narrowing. 2. No obvious aneurysm or dissection. 3. No other new interval abnormality since prior study. Electronically signed by Nilo Bocanegra 10-11-2024 01:10 AM Chest CTA 10/10/24 22:02 EXAM: CT angio chest dissec wo/w con CLINICAL HISTORY: r/o dissection TECHNIQUE: Contiguous axial images were obtained from the neck base through the upper abdomen following intravenous administration of iodinated contrast material. Angiographic images were processed, 3D MIP images were acquired for interpretation. If IV contrast material had not been administered, the likelihood of detecting abnormalities relevant to the patient's condition would have been substantially decreased. Coronal and sagittal 3-D MIPs were likewise performed and indicated to increase the sensitivity of detectin diffuse clinically relevant pathology. CT scan was performed according to ALARA (as low as reasonable achievable). COMPARISON: 09 aug 2024. FINDINGS: Mild aneurysmal dilatation of ascending aorta with maximum diameter measures up to 4.1 cm. Mild cardiomegaly noted. Few subpleural atelectatic bands are noted in bilateral lower lobes. Adequate contrast bolus without evidence of pulmonary embolism. The central airways are patent. Rest of lungs are clear. No pleural effusion. The heart, aorta, and pulmonary arteries are of normal size and configuration. There are coronary artery and aortic atherosclerotic calcifications. Minimal pericardial effusion is identified. The thyroid is unremarkable. No mediastinal, hilar, or axillary lymphadenopathy is noted. No suspicious lytic or sclerotic osseous lesions are identified. IMPRESSION: 1. No evidence of pulmonary embolism 2. Mild aneurysmal dilatation of ascending aorta with maximum diameter measures up to 4.1 cm. 3. Mild cardiomegaly noted with minimal pericardial effusion. 4. Few subpleural atelectatic bands are noted in bilateral lower lobes. 5. Prior bilateral pleural effusion is completely resolved in present scan. Electronically signed by Nilo Bocanegra 10-11-2024 01:05 AM Code Status & VTE Plan VTE Prophylaxis Plan VTE Prophylaxis will be ordered: Yes PG Care Time/CCT Total # of Minutes Spent Total Time Spent with Patient: Total time spent is greater than 50% in coordination of care (as documented) at patient's floor/unit and/or counseling patient: Coding Level of Care Code 99160 INT INP/OBS CARE 3/75MIN Diagnoses Nausea vomiting and diarrhea R11.2; R19.7 Epigastric discomfort R10.13
[2024-10-11] MEDS ORDERED: ALUMINUM/MAGNESIUM/SIMETH (MAALOX MAX) 30 ML UDC PO PRN (03:37)
[2024-10-11 04:01] LABS: Magnesium 1.7 mg/dl (1.7-2.4); Phosphorus 3.3 mg/dl (2.5-4.9)
[2024-10-11] MEDS: ONDANSETRON INJ 2 MG/ML 2 ML VIAL ONE (04:04)
[2024-10-11] MEDS: ONDANSETRON INJ 2 MG/ML 2 ML VIAL IV PRN (04:04)
[2024-10-11] MEDS: LACTATED RINGER'S 1,000 ML IV SCH (04:04)
[2024-10-11] MEDS: LEVOTHYROXINE SODIUM 100 MCG TABLET PO SCH (06:06)
[2024-10-11] MEDS ORDERED: dilTIAZem HCL 180 MG CAPCR PO SCH (09:00)
[2024-10-11] MEDS: guaiFENesin/DEXTROM SYRUP 200MG/20MG 10ML UDC PO PRN (09:20)
[2024-10-11] MEDS: dilTIAZem HCL 240 MG CAPCR PO SCH (09:21)
[2024-10-11] MEDS: SERTRALINE HCL 50 MG TABLET PO SCH (09:22)
[2024-10-11] MEDS: LIDOCAINE 5% 1 PATCH TD SCH (09:22)
[2024-10-11] MEDS: METOPROLOL TARTRATE 100 MG TAB PO SCH (09:23)
[2024-10-11] MEDS: ISOSORBIDE MONO EXTENDED REL 30 MG TABCR PO SCH (09:23)
[2024-10-11] MEDS: APIXABAN 2.5 MG TAB PO SCH (09:23)
[2024-10-11] MEDS: LORATADINE 10 MG TAB PO SCH (09:23)
[2024-10-11] MEDS: PANTOprazole 40 MG/10 ML SYR IV SCH (09:24)
--- NOTE | 2024-10-11 11:23 | Electrocardiogram Report ---
Test Reason : Blood Pressure : */* mmHG Vent. Rate : 116 BPM Atrial Rate : * BPM P-R Int : * ms QRS Dur : 82 ms QT Int : 316 ms P-R-T Axes : * 39 268 degrees QTcB Int : 439 ms Atrial fibrillation with rapid ventricular response Marked ST abnormality, possible inferior subendocardial injury Abnormal ECG When compared with ECG of 10-Oct-2024 20:44, (unconfirmed) Atrial fibrillation has replaced Electronic ventricular pacemaker Confirmed by Kwasi Jo ([id number]) on 10/11/2024 11:23:00 AM Referred By: REFERRED SELF Confirmed By: Kwasi Jo
--- NOTE | 2024-10-11 11:29 | Hospitalist Progress Note ---
Date of Service October 11, 2024 Assessment & Plan (1) Nausea vomiting and diarrhea: Plan: Suspected viral gastroenteritis. Supportive care. Scheduled parenteral Reglan. IV fluids. Clear liquids for now and advance as tolerated (2) Epigastric discomfort: Plan: With nausea. Continue H2 blockers and proton pump inhibitors. Scheduled parenteral Reglan. Supportive care. (3) Essential hypertension: Plan: Stable. Continue current medical (4) Permanent atrial fibrillation: Plan: Stable. Continue rate control measures. Continue Eliquis. Telemetry (5) Cognitive impairment: Plan: Stable. Continue Aricept. Plan Hopeful discharge back to [facility] within the next day or 2 Admission and Anticipated Discharge Date Admission Date: October 11, 2024 Subjective Alert and oriented. She is nauseated. Scheduled parenteral Reglan ordered. She appears to have a viral gastroenteritis. Continue IV fluids. Clear liquids for now and advance as tolerated. Diltiazem CD uptitrated to 240 mg daily for better heart rate and blood pressure control. Hopefully she can return back to [facility] personal-halfway soon. Review of Systems 2 Review of Systems: Constitutionalno fever or chills ENTno blurred vision, no double vision, no epistaxis, no sore throat Respiratoryno cough, no wheezing, no shortness of breath Cardiacno palpitations, no chest pain, no syncope Jose Carlos melena, hematochezia. She does have nausea and vomiting and diarrhea. No hematemesis GUno urinary retention, no urinary incontinence, no dysuria, no hematuria Musculoskeletalno joint pain, no muscle tenderness Skinno bruising, no rashes, no pruritus Neurono isolated weakness, no paresthesia, no weakness Psychno depression, no anxiety Physical Exam 2 Physical Exam: General-alert and oriented x3, no fever, no chills HEENT-head atraumatic and normocephalic, pupils equal and reactive to light, extraocular muscles intact Neck-no lymphadenopathy or thyromegaly, trachea midline Chest-clear to auscultation. No rales, wheezing or rhonchi Cardiac-regular rate and rhythm, normal S1 and S2 Abdomen-normal bowel sounds, no hepatosplenomegaly Extremities-no cyanosis, clubbing, or edema Neuro-cranial nerves II through XII intact, motor and sensory function within normal limits, strength symmetrical, no focal deficits Psych-normal affect, normal mood Results & Data Results & Data Vital Signs (Past 12 Hours) Vital Signs Temp Pulse Pulse Resp BP BP Pulse Ox 10/11/24 10:47 10/11/24 08:09 36.5 C 97 H 18 198/80 H 97 10/11/24 03:52 10/11/24 03:52 36.7 C 102 H 18 189/86 H 98 10/11/24 03:12 99 H 22 198/113 H 97 10/11/24 01:00 81 187/84 H 97 10/11/24 00:00 22 189/91 H 97 O2 Del Method O2 Flow Rate 10/11/24 10:47 Nasal Cannula 2 10/11/24 08:09 Nasal Cannula 2 10/11/24 03:52 Nasal Cannula 2 10/11/24 03:52 Nasal Cannula 2 10/11/24 03:12 Nasal Cannula 2 10/11/24 01:00 Room Air 10/11/24 00:00 Room Air Laboratory Results 10/10/24 22:30 10/10/24 22:30 PG Care Time/CCT Total # of Minutes Spent Total Time Spent with Patient: Total time spent is greater than 50% in coordination of care (as documented) at patient's floor/unit and/or counseling patient: Coding Level of Care Code 75550 SUB INP/OBS CARE 3/50MIN Diagnoses Nausea vomiting and diarrhea R11.2; R19.7 Epigastric discomfort R10.13 Essential hypertension I10 Permanent atrial fibrillation I48.21 Cognitive impairment R41.89
[2024-10-11] MEDS: METOCLOPRAMIDE HCL INJ 5 MG/ML 2 ML VIAL IV SCH (12:13)
--- NOTE | 2024-10-11 13:35 | Electrocardiogram Report ---
Test Reason : Blood Pressure : */* mmHG Vent. Rate : 98 BPM Atrial Rate : * BPM P-R Int : * ms QRS Dur : 82 ms QT Int : 356 ms P-R-T Axes : * 45 -74 degrees QTcB Int : 454 ms Atrial fibrillation with occasional ventricular-paced complexes Abnormal ECG When compared with ECG of 31-Aug-2024 10:25, No significant change was found Confirmed by Kwasi Jo ([id number]) on 10/11/2024 1:35:01 PM Referred By: REFERRED SELF Confirmed By: Kwasi Jo
[2024-10-11] MEDS: ACETAMINOPHEN 500 MG TAB PO PRN (20:02)
[2024-10-11] MEDS: ZOLPIDEM TARTRATE 5 MG TAB PO PRN (20:46)
[2024-10-11] MEDS: DONEPEZIL HCL 5 MG TAB PO SCH (20:46)
[2024-10-11] MEDS: MELATONIN 3 MG TAB PO SCH (20:46)
[2024-10-11] MEDS: FAMOTIDINE 20MG IV PUSH 20 MG/5 ML SYR IV SCH (20:47)
[2024-10-11] MEDS ORDERED: ATORVASTATIN 20 MG TAB PO SCH (21:00)
[2024-10-12 00:12] LABS: Adenovirus F 40/41 PCR Not Detected (NotDetected); Astrovirus PCR Not Detected (NotDetected); Campylobacter PCR Not Detected (NotDetected); Cryptosporidium PCR Not Detected (NotDetected); Cyclospora cayetanensis PCR Not Detected (NotDetected); Entamoeba histolytica PCR Not Detected (NotDetected); Enteroaggregative E.coli(EAEC) Not Detected (NotDetected); Enteropathogenic E.coli (EPEC) Not Detected (NotDetected); Enterotoxigenic E.coli (ETEC) Not Detected (NotDetected); Giardia lamblia PCR Not Detected (NotDetected); Plesiomonas shigelloides PCR Not Detected (NotDetected); Rotavirus A PCR Not Detected (NotDetected); Salmonella PCR Not Detected (NotDetected); Sapovirus PCR Not Detected (NotDetected); Shiga-like Toxin E.coli (STEC) Not Detected (NotDetected); Shigella/Enteroinvasive E.coli Not Detected (NotDetected); Vibrio cholerae PCR Not Detected (NotDetected); Vibrio species PCR Not Detected (NotDetected); Yersinia enterocolitica PCR Not Detected (NotDetected)
[2024-10-12 02:22] LABS: Norovirus GI/GII PCR DETECTED (NotDetected)
[2024-10-12 07:34] LABS: Hematocrit (blood only) 33.7 % (37.0-47.0); Hemoglobin 11.2 g/dl (12.0-16.0); Mean Corpuscular Hemoglobin 28.7 pg (25.0-34.0); Mean Corpuscular Hgb Conc 33.2 g/dL (32.0-36.0); Mean Corpuscular Volume 86.4 fL (80.0-100.0); Mean Platelet Volume 12.4 fL (9.4-12.4); Platelet Count 126 K/uL (130-400); RDW Coefficient of Variation 15.8 % (11.5-14.5); White Blood Count 5.19 K/ul (4.8-10.8)
[2024-10-12 07:46] LABS: BUN Creatinine Ratio 27.7 (10-20); Calcium 8.4 mg/dl (8.6-10.3); Creatinine Clr Calc Pharmacy 42.9 ml/min; Potassium 3.1 mmol/L (3.5-5.1)
--- NOTE | 2024-10-12 13:02 | Hospitalist Progress Note ---
Date of Service October 12, 2024 Assessment & Plan (1) Nausea vomiting and diarrhea: Plan: Suspected viral gastroenteritis. Now much improved with scheduled parenteral Reglan. Diet has been advanced. IV fluids discontinued (2) Epigastric discomfort: Plan: Present on admission. Now resolved. Continue H2 blockers and proton pump inhibitors along with scheduled parenteral Reglan. Supportive care. (3) Essential hypertension: Plan: Stable. Continue current medical (4) Permanent atrial fibrillation: Plan: Stable. Continue rate control measures. Continue Eliquis. Telemetry (5) Cognitive impairment: Plan: Stable. Continue Aricept. Plan Hopeful discharge back to [facility] tomorrow, October 13 Admission and Anticipated Discharge Date Admission Date: October 12, 2024 Subjective Clinically much better. Her nausea and vomiting have resolved. Loose stools have also significantly diminished. OT and PT assessments have been requested. Diet has been advanced. Intravenous Protonix and Pepcid have been switched to oral dosing. Hopefully she can go home tomorrow, October 13 Review of Systems 2 Review of Systems: Constitutionalno fever or chills ENTno blurred vision, no double vision, no epistaxis, no sore throat Respiratoryno cough, no wheezing, no shortness of breath Cardiacno palpitations, no chest pain, no syncope Jose Carlos melena, hematochezia. Nausea and vomiting have resolved. Less diarrhea. No hematemesis GUno urinary retention, no urinary incontinence, no dysuria, no hematuria Musculoskeletalno joint pain, no muscle tenderness Skinno bruising, no rashes, no pruritus Neurono isolated weakness, no paresthesia, no weakness Psychno depression, no anxiety Physical Exam 2 Physical Exam: General-alert and oriented x3, no fever, no chills HEENT-head atraumatic and normocephalic, pupils equal and reactive to light, extraocular muscles intact Neck-no lymphadenopathy or thyromegaly, trachea midline Chest-clear to auscultation. No rales, wheezing or rhonchi Cardiac-regular rate and rhythm, normal S1 and S2 Abdomen-normal bowel sounds, no hepatosplenomegaly Extremities-no cyanosis, clubbing, or edema Neuro-cranial nerves II through XII intact, motor and sensory function within normal limits, strength symmetrical, no focal deficits Psych-normal affect, normal mood Results & Data Results & Data Vital Signs (Past 12 Hours) Vital Signs Temp Pulse Pulse Resp BP Pulse Ox O2 Del Method 10/12/24 11:47 36.7 C 80 20 160/68 H 93 Room Air 10/12/24 08:01 36.3 C L 77 16 177/75 H 94 Room Air 10/12/24 08:00 82 10/12/24 08:00 Room Air 10/12/24 01:59 36.5 C 74 16 146/72 H 94 Nasal Cannula O2 Flow Rate 10/12/24 11:47 10/12/24 08:01 10/12/24 08:00 10/12/24 08:00 10/12/24 01:59 2 Laboratory Results 10/12/24 06:18 10/12/24 06:18 PG Care Time/CCT Total # of Minutes Spent Total Time Spent with Patient: Total time spent is greater than 50% in coordination of care (as documented) at patient's floor/unit and/or counseling patient: Coding Level of Care Code 22674 SUB INP/OBS CARE 2/35MIN Diagnoses Nausea vomiting and diarrhea R11.2; R19.7 Epigastric discomfort R10.13 Essential hypertension I10 Permanent atrial fibrillation I48.21 Cognitive impairment R41.89
[2024-10-12 16:16] LABS: Appearance Urine Cloudy (Clear); Bacteria Urine Automated 4+ (None Seen); Bilirubin Urine Negative (Negative); Blood Urine Negative (Negative); Cast Urine Automated 0-2 /lpf (0-2); Color Urine Yellow; Glucose Urine UA Negative (Negative); Ketones Urine Trace (Negative); Leukocyte Esterase Urine Trace (Negative); Nitrite Urine Positive (Negative); Protein Urine Negative (Negative); RBC Urine Automated 0-2 /hpf (0-2); Specific Gravity Urine 1.015 (1.000-1.030); Urobilinogen Urine Negative (Negative)
[2024-10-12] MEDS: FAMOTIDINE 20 MG TAB PO SCH (20:42)
[2024-10-13] MEDS: PANTOprazole 40 MG TAB PO SCH (07:38)
--- NOTE | 2024-10-13 09:31 | Emergency Department Note ---
ED Visit Note I was consulted by the Advanced Practice Provider LEI Alarcon. I performed a substantive portion of the visit including all aspects of medical decision making. .
[2024-10-13 10:17] LABS: Basophils # (auto) 0.02 K/uL (0.00-0.20); Basophils % (auto) 0.3 %; Eosinophils # (auto) 0.01 K/uL (0.00-0.50); Eosinophils % (auto) 0.2 %; Hematocrit (blood only) 40.6 % (37.0-47.0); Hemoglobin 13.4 g/dl (12.0-16.0); Immature Granulocytes # (auto) 0.02 K/uL (0.01-0.20); Immature Granulocytes % (auto) 0.3 %; Lymphocytes # (auto) 1.77 K/uL (1.20-3.40); Lymphocytes % (auto) 27.8 %; Mean Corpuscular Hemoglobin 27.9 pg (25.0-34.0); Mean Corpuscular Volume 84.4 fL (80.0-100.0); Mean Platelet Volume 12.3 fL (9.4-12.4); Monocytes # (auto) 0.75 K/uL (0.11-0.59); Monocytes % (auto) 11.8 %; Neutrophils # (auto) 3.79 K/uL (1.40-6.50); Neutrophils % (auto) 59.6 %; Platelet Count 153 K/uL (130-400); RDW Coefficient of Variation 15.2 % (11.5-14.5); RDW Standard Deviation 46.7 fL (36.4-46.3); Red Blood Count 4.81 M/uL (4.20-5.40); White Blood Count 6.36 K/ul (4.8-10.8)
[2024-10-13 10:26] LABS: BUN Creatinine Ratio 23.3 (10-20); Creatinine Clr Calc Pharmacy 46.5 ml/min; Magnesium 1.6 mg/dl (1.7-2.4); Potassium 3.1 mmol/L (3.5-5.1)
[2024-10-13] MEDS: POTASSIUM CHLORIDE 20 MEQ/15 ML UDC PO STA (12:45)
--- NOTE | 2024-10-13 14:01 | Hospitalist Progress Note ---
Date of Service October 13, 2024 Assessment & Plan (1) Gastroenteritis due to norovirus: Plan: Acute - Stool PCR positive for norovirus, appropriate isolation precautions ordered - Received 1L of NSS in ED and ordered LR @ 80 ml/hr x1 liter by admitting team - Continues to endorse n/v, diarrhea has slowed down - D/C scheduled Reglan, continue Zofran 4mg IV q6 PRN - Hypokalemia noted on labs today at 3.1, KCl elixir 40meq ordered x1, will give another dose this afternoon for total of 80meq - Hypomagnesemia with mag of 1.6, replete and recheck in AM - Repeat labs in AM, added stat Lipase and Magnesium to labs today (10/13) - Continue supportive care, resume IVF with another liter of LR @ 80 ml/hr given poor oral intake - Hopeful that her symptoms improve by tomorrow, if not, may need to consider further diagnostic imaging (CTAP w/ oral contrast) - Continue PO protonix and pepcid (2) Abnormal finding on urinalysis: Plan: Acute - UA collected on 10/12, suspect that this was residual order from the ER - Reports symptoms of urinary frequency and urgency, denies dysuria - H/o ESBL Klebsiella UTI - Start Rocephin 2g IV daily x3 days, await culture data and tailor abx accordingly (3) Essential hypertension: Plan: Chronic/Stable - BP currently acceptable - Continue Lopressor, Diltiazem, and Imdur (4) Permanent atrial fibrillation: Plan: Chronic/stable - Continue Diltiazem and Lopressor - Currently in afib on tele with rates in the 100s at rest - add TSH w/ FT4 reflex (on levothyroxine 100mcg daily) - Continue Eliquis. (5) Cognitive impairment: Plan: Chronic/stable - Continue aricept and sertraline - Resides at [facility] ([facility]) Plan PT/OT consulted but pt nauseated and declined working with therapy today but requested they return tomorrow. Continue to monitor on tele for now, can likely de-escalate tomorrow to med/surg if she is not ready for d/c. Electrolytes replaced as noted above. AM labs ordered. Plan d/w Dr. Will who is in agreement. Admission and Anticipated Discharge Date Admission Date: October 12, 2024 Nikolay Donovan was seen on morning rounds. She is resting in bed reports that she is doing "terrible." She continues to endorse n/v. Her diarrhea has slowed down. She also continues to endorse epigastric discomfort. Prior h/o hysterectomy, denies h/o pancreatitis or bowel obstruction. She was able to take her pills with a small amount of milk this AM but not able to eat breakfast otherwise. Review of Systems 2 Review of Systems: All systems reviewed and are unremarkable except as noted in HPI and below. Denies fever, chills, fatigue, headache, nasal congestion, sore throat, cough, chest pain, shortness of breath, palpitations, orthopnea, PND, constipation, dysuria, hematuria, back pain, joint pain or swelling, easy bruising or bleeding, skin lesions or rashes. Physical Exam 2 Physical Exam: GENERAL: 88 yo elderly frail WF. Awake, alert, oriented. No distress. LUNGS: Nonlabored. Crackles in left base otherwise CTAB. CARDIOVASCULAR: Irregular rhythm, overall rate is controlled ABDOMEN: Soft, TTP in epigastrium, nondistended. Bowel sounds normoactive x 4 quad. EXTREMITIES: No edema. Non-tender. Peripheral pulses +2/4. PSYCHIATRIC: Cooperative. Appropriate mood and affect. SKIN: Warm, dry, intact. No rashes or lesions. Results & Data Results & Data Vital Signs (Past 12 Hours) Vital Signs Temp Pulse Pulse Resp BP Pulse Ox O2 Del Method 10/13/24 11:00 36.4 C L 87 18 154/71 H 95 Room Air 10/13/24 08:02 36.6 C 99 H 18 196/68 H 95 Room Air 10/13/24 07:00 85 Laboratory Results 10/13/24 09:11 10/13/24 09:11 PG Care Time/CCT Total # of Minutes Spent Total Time Spent with Patient: Total time spent is greater than 50% in coordination of care (as documented) at patient's floor/unit and/or counseling patient: 36 minutes Coding Level of Care Code 40056 SUB INP/OBS CARE 2/35MIN Diagnoses Gastroenteritis due to norovirus A08.11 Abnormal finding on urinalysis R82.90 Essential hypertension I10 Permanent atrial fibrillation I48.21 Cognitive impairment R41.89
[2024-10-13] MEDS: MAGNESIUM SULFATE / D5W 1 GM/100 ML BAG IV SCH (15:00)
[2024-10-13 15:39] LABS: Magnesium 1.7 mg/dl (1.7-2.4)
[2024-10-13] MEDS: cefTRIAXone SODIUM 2,000 MG/50 ML BAG IV SCH (15:51)
[2024-10-13 15:54] LABS: Thyroid Stimulating Hormone 4.306 uIu/ml (0.300-4.500)
[2024-10-14 06:15] LABS: Basophils # (auto) 0.02 K/uL (0.00-0.20); Basophils % (auto) 0.3 %; Eosinophils # (auto) 0.01 K/uL (0.00-0.50); Eosinophils % (auto) 0.2 %; Hematocrit (blood only) 37.9 % (37.0-47.0); Hemoglobin 13.1 g/dl (12.0-16.0); Immature Granulocytes # (auto) 0.02 K/uL (0.01-0.20); Immature Granulocytes % (auto) 0.3 %; Lymphocytes % (auto) 24.4 %; Mean Corpuscular Hemoglobin 28.7 pg (25.0-34.0); Mean Corpuscular Hgb Conc 34.6 g/dL (32.0-36.0); Mean Corpuscular Volume 82.9 fL (80.0-100.0); Mean Platelet Volume 11.8 fL (9.4-12.4); Monocytes # (auto) 0.62 K/uL (0.11-0.59); Monocytes % (auto) 9.5 %; Neutrophils # (auto) 4.29 K/uL (1.40-6.50); Neutrophils % (auto) 65.3 %; Platelet Count 152 K/uL (130-400); RDW Coefficient of Variation 14.8 % (11.5-14.5); RDW Standard Deviation 44.5 fL (36.4-46.3); Red Blood Count 4.57 M/uL (4.20-5.40); White Blood Count 6.56 K/ul (4.8-10.8)
[2024-10-14 06:25] LABS: BUN Creatinine Ratio 25.4 (10-20); Calcium 8.7 mg/dl (8.6-10.3); Creatinine Clr Calc Pharmacy 47.3 ml/min; Magnesium 1.8 mg/dl (1.7-2.4); Potassium 2.9 mmol/L (3.5-5.1)
[2024-10-14] MEDS: hydrALAZINE HCL 25 MG TAB PO SCH (10:55)
[2024-10-14] MEDS: levoFLOXacin/D5W 750 MG/150 ML BAG IV SCH (11:16)
[2024-10-14] MEDS: SODIUM CHLORIDE 0.9% 1,000 ML IV SCH (12:09)
[2024-10-14] MEDS: METOCLOPRAMIDE HCL INJ 5 MG/ML 2 ML VIAL IV SCH (12:09)
[2024-10-14] MEDS: POTASSIUM CHLORIDE / WTR 10 MEQ/100 ML PLCT IV SCH (14:12)
--- NOTE | 2024-10-14 15:07 | Hospitalist Progress Note ---
Date of Service October 14, 2024 Assessment & Plan (1) Nausea vomiting and diarrhea: Plan: Suspected viral gastroenteritis. Diarrhea has resolved but she continues to complain of nausea. Continue parenteral Reglan. Diet has been advanced. IV fluids reordered until p.o. intake improves (2) Epigastric discomfort: Plan: Present on admission. Now resolved. Continue H2 blockers and proton pump inhibitors along with scheduled parenteral Reglan. Supportive care. (3) Essential hypertension: Plan: Systolic blood pressure remains elevated. Diltiazem was increased earlier this admission. Hydralazine added today, October 14. Will follow stable. Continue current medical (4) Permanent atrial fibrillation: Plan: Stable. Continue rate control measures. Continue Eliquis. Telemetry (5) Cognitive impairment: Plan: Stable. Continue Aricept. (6) Hypokalemia: Plan: Parenteral replacement ordered. Repeat potassium level later this evening. Plan Eventual discharge back to [facility]. Hopefully within the next day or 2 Admission and Anticipated Discharge Date Admission Date: October 12, 2024 Subjective Awake and alert. She continues to feel ill and has protracted nausea. ESBL Klebsiella isolated in the urine. She is now on intravenous Levaquin. Hydralazine has been started for better blood pressure control. Diltiazem was uptitrated earlier this admission. She is hypokalemic with potassium 2.4. Parenteral potassium replacement ordered. Will repeat potassium level this evening. Review of Systems 2 Review of Systems: Constitutionalno fever or chills ENTno blurred vision, no double vision, no epistaxis, no sore throat Respiratoryno cough, no wheezing, no shortness of breath Cardiacno palpitations, no chest pain, no syncope GIprotracted nausea. Vomiting has resolved. Diarrhea has resolved. No melena or hematochezia GUno urinary retention, no urinary incontinence, no dysuria, no hematuria Musculoskeletalno joint pain, no muscle tenderness Skinno bruising, no rashes, no pruritus Neurono isolated weakness, no paresthesia, no weakness Psychno depression, no anxiety Physical Exam 2 Physical Exam: General-alert and oriented x3, no fever, no chills. Nauseated and feels ill HEENT-head atraumatic and normocephalic, pupils equal and reactive to light, extraocular muscles intact Neck-no lymphadenopathy or thyromegaly, trachea midline Chest-clear to auscultation. No rales, wheezing or rhonchi Cardiac-regular rate and rhythm, normal S1 and S2 Abdomen-normal bowel sounds, no hepatosplenomegaly Extremities-no cyanosis, clubbing, or edema Neuro-cranial nerves II through XII intact, motor and sensory function within normal limits, strength symmetrical, no focal deficits Psych-normal affect, normal mood Results & Data Results & Data Vital Signs (Past 12 Hours) Vital Signs Temp Pulse Pulse Resp BP Pulse Ox O2 Del Method 10/14/24 14:35 70 10/14/24 12:11 36.4 C L 84 18 94 Room Air 10/14/24 10:57 160/75 H 10/14/24 08:35 36.5 C 96 H 16 193/94 H 95 Room Air 10/14/24 08:10 Room Air 10/14/24 07:00 91 H 10/14/24 04:50 100 H 190/94 H 95 Room Air 10/14/24 03:36 36.3 C L 82 16 185/79 H 92 Room Air Laboratory Results 10/14/24 05:53 10/14/24 05:53 PG Care Time/CCT Total # of Minutes Spent Total Time Spent with Patient: Total time spent is greater than 50% in coordination of care (as documented) at patient's floor/unit and/or counseling patient: Coding Level of Care Code 91928 SUB INP/OBS CARE 3/50MIN Diagnoses Nausea vomiting and diarrhea R11.2; R19.7 Epigastric discomfort R10.13 Essential hypertension I10 Permanent atrial fibrillation I48.21 Cognitive impairment R41.89 Hypokalemia E87.6
[2024-10-15 07:18] LABS: Basophils # (auto) 0.02 K/uL (0.00-0.20); Basophils % (auto) 0.4 %; Eosinophils # (auto) 0.02 K/uL (0.00-0.50); Eosinophils % (auto) 0.4 %; Hematocrit (blood only) 37.5 % (37.0-47.0); Hemoglobin 12.8 g/dl (12.0-16.0); Immature Granulocytes # (auto) 0.01 K/uL (0.01-0.20); Immature Granulocytes % (auto) 0.2 %; Lymphocytes # (auto) 1.65 K/uL (1.20-3.40); Lymphocytes % (auto) 29.6 %; Mean Corpuscular Hemoglobin 28.3 pg (25.0-34.0); Mean Corpuscular Hgb Conc 34.1 g/dL (32.0-36.0); Mean Corpuscular Volume 82.8 fL (80.0-100.0); Mean Platelet Volume 12.9 fL (9.4-12.4); Monocytes % (auto) 10.8 %; Neutrophils # (auto) 3.27 K/uL (1.40-6.50); Neutrophils % (auto) 58.6 %; Platelet Count 153 K/uL (130-400); RDW Coefficient of Variation 14.8 % (11.5-14.5); RDW Standard Deviation 45.1 fL (36.4-46.3); Red Blood Count 4.53 M/uL (4.20-5.40); White Blood Count 5.57 K/ul (4.8-10.8)
[2024-10-15 07:27] LABS: BUN Creatinine Ratio 20.4 (10-20); Calcium 8.9 mg/dl (8.6-10.3)
[2024-10-15] MEDS: POTASSIUM CHLORIDE / WTR 10 MEQ/100 ML PLCT IV SCH (10:46)
--- NOTE | 2024-10-15 13:15 | Hospitalist Progress Note ---
Date of Service October 15, 2024 Assessment & Plan (1) Nausea vomiting and diarrhea: Plan: Suspected viral gastroenteritis. Diarrhea resolved first and nausea has finally resolved. Parenteral Reglan switched to oral dosing. (2) Epigastric discomfort: Plan: Present on admission. Now resolved. Continue H2 blockers and proton pump inhibitors along with scheduled Reglan. Supportive care. (3) Essential hypertension: Plan: Systolic blood pressure remains elevated. Diltiazem was increased earlier this admission. Hydralazine was added October 14 and uptitrated today, October 15. (4) Permanent atrial fibrillation: Plan: Stable. Continue rate control measures. Continue Eliquis. Telemetry (5) Cognitive impairment: Plan: Stable. Continue Aricept. (6) Hypokalemia: Plan: Potassium remains low. Continue parenteral replacement. Serial lab (7) Insomnia: Plan: Zolpidem has been restarted at bedtime. Melatonin discontinued. Plan Eventual discharge back to [facility]. Hopefully within the next day or 2 Admission and Anticipated Discharge Date Admission Date: October 12, 2024 Subjective She looks and feels better. She is not sleeping well and her usual zolpidem at bedtime has been reordered to replace melatonin which has been ineffective. She is on intravenous Levaquin, day 2. Nausea and vomiting have resolved. Parenteral Reglan switched to oral dosing before meals and at bedtime. Parenteral potassium replacement continues. Hydralazine uptitrated today, October 15 for better blood pressure control. Hopefully she can return to [facility] within the next day or 2 on oral antibiotic. Review of Systems 2 Review of Systems: Constitutionalno fever or chills ENTno blurred vision, no double vision, no epistaxis, no sore throat Respiratoryno cough, no wheezing, no shortness of breath Cardiacno palpitations, no chest pain, no syncope GIprotracted nausea has now resolved. Vomiting has resolved. Diarrhea has resolved. No melena or hematochezia GUno urinary retention, no urinary incontinence, no dysuria, no hematuria Musculoskeletalno joint pain, no muscle tenderness Skinno bruising, no rashes, no pruritus Neurono isolated weakness, no paresthesia, no weakness Psychno depression, no anxiety Physical Exam 2 Physical Exam: General-alert and oriented x3, no fever, no chills. Nauseated and feels ill HEENT-head atraumatic and normocephalic, pupils equal and reactive to light, extraocular muscles intact Neck-no lymphadenopathy or thyromegaly, trachea midline Chest-clear to auscultation. No rales, wheezing or rhonchi Cardiac-regular rate and rhythm, normal S1 and S2 Abdomen-normal bowel sounds, no hepatosplenomegaly Extremities-no cyanosis, clubbing, or edema Neuro-cranial nerves II through XII intact, motor and sensory function within normal limits, strength symmetrical, no focal deficits Psych-normal affect, normal mood Results & Data Results & Data Vital Signs (Past 12 Hours) Vital Signs Temp Pulse Pulse Resp BP BP Pulse Ox 10/15/24 12:01 36.3 C L 83 16 165/71 H 95 10/15/24 08:08 36.3 C L 87 16 176/84 H 95 10/15/24 07:39 88 10/15/24 03:56 36.5 C 74 18 160/69 H 95 10/15/24 03:45 O2 Del Method 10/15/24 12:01 Room Air 10/15/24 08:08 Room Air 10/15/24 07:39 10/15/24 03:56 Room Air 10/15/24 03:45 Room Air Laboratory Results 10/15/24 06:13 10/15/24 06:13 PG Care Time/CCT Total # of Minutes Spent Total Time Spent with Patient: Total time spent is greater than 50% in coordination of care (as documented) at patient's floor/unit and/or counseling patient: Coding Level of Care Code 79799 SUB INP/OBS CARE 3/50MIN Diagnoses Nausea vomiting and diarrhea R11.2; R19.7 Epigastric discomfort R10.13 Essential hypertension I10 Permanent atrial fibrillation I48.21 Cognitive impairment R41.89 Hypokalemia E87.6 Insomnia G47.00
[2024-10-15] MEDS: hydrALAZINE TAB 50 MG TAB PO SCH (13:23)
[2024-10-15] MEDS: METOCLOPRAMIDE HCL 5 MG TABLET PO SCH (17:30)
[2024-10-15] MEDS: ZOLPIDEM TARTRATE 5 MG TAB PO SCH (21:06)
[2024-10-16 06:12] LABS: Basophils # (auto) 0.02 K/uL (0.00-0.20); Basophils % (auto) 0.3 %; Eosinophils # (auto) 0.03 K/uL (0.00-0.50); Eosinophils % (auto) 0.4 %; Hematocrit (blood only) 38.5 % (37.0-47.0); Immature Granulocytes # (auto) 0.03 K/uL (0.01-0.20); Immature Granulocytes % (auto) 0.4 %; Lymphocytes # (auto) 1.94 K/uL (1.20-3.40); Lymphocytes % (auto) 28.6 %; Mean Corpuscular Hemoglobin 28.1 pg (25.0-34.0); Mean Corpuscular Hgb Conc 33.8 g/dL (32.0-36.0); Mean Corpuscular Volume 83.3 fL (80.0-100.0); Mean Platelet Volume 12.3 fL (9.4-12.4); Monocytes % (auto) 10.3 %; Neutrophils # (auto) 4.06 K/uL (1.40-6.50); Platelet Count 172 K/uL (130-400); RDW Standard Deviation 45.7 fL (36.4-46.3); Red Blood Count 4.62 M/uL (4.20-5.40); White Blood Count 6.78 K/ul (4.8-10.8)
[2024-10-16 06:35] LABS: BUN Creatinine Ratio 17.5 (10-20); Calcium 9.2 mg/dl (8.6-10.3); Potassium 3.3 mmol/L (3.5-5.1)
[2024-10-16 07:57] VITALS: RESP 16
[2024-10-16] MEDS: POTASSIUM CHLORIDE 20 MEQ/15 ML UDC PO STA (09:43)
[2024-10-16] MEDS: POTASSIUM CHLORIDE CRTAB 20 MEQ TABCR PO STA (09:44)
[2024-10-16 10:53] VITALS: PULSE 77; TEMP 97.2; O2SAT 96
--- NOTE | 2024-10-16 12:06 | Discharge Summary ---
Discharge Summary Date of Service October 16, 2024 Principal Dx & Hospital Course #1 = Principal Diagnosis (1) Enteritis due to Norovirus: With N/V/D on admission now improved.Had resolution of diarrhea for several days, nausea persisted but improved with scheduled reglan-continue scheduled reglan x 3 more days epigastric discomfort resolved COntinue pepcid and prilosec Tolerating regular diet at time of discharge (2) Essential hypertension: BPs quite elevated here. Improved with increasing dose of Diltiazem and added Hydralazine f/u with PCP continue other home metoprolol, isosorbide (3) Permanent atrial fibrillation: rates controlled continue metoprolol, diltiazem and Eliquis\ no acute issues (4) UTI (urinary tract infection): UA abnormal on admission, unclear if actually symptomatic Treated with levaquin and will finish out 7 day course (5) Cognitive impairment: Stable. Continue Aricept, lives in [facility] (6) Hypokalemia: replaced and improved 2/2 GI losses, poor po intake (7) Insomnia: continue Zolpidem at bedtime Plan DVT proph-Eliquis Dispo-dc to [facility] Notes For Next Care Provider None Medication Changes From Visit Added reglan Admission HPI Per Admitting Provider Venus Monroy is an 88yo female with history of HTN, HLP, AF on Eliquis anticoagulation, GERD and prior DVT presenting with nausea, vomiting, abdominal pain and diarrhea. Patient resides at [facility]. She was in her usual state of health today - her daughter visited her earlier today and she was doing well. Around 20:00 she developed nausea with multiple episodes of non-bloody/non-bilious vomiting as well as severe epigastric discomfort and di arrhea. In the ER she has had ongoing nausea and vomiting. Patient denies sick contacts, recent travel or recent antibiotic use. She did eat some potato salad that was approximately 1 week old but reports it tasted fine and had been properly refrigerated. ER Course: Zofran 4mg IV NSS x 500mL Tylenol 1gm IV Pepcid 20mg IV Fentanyl 50mcg IV Discharge Exam Constitutional WD/WN, vitals as above Respiratory normal respiratory effort, lungs clear to auscultation Cardiovascular Rate/Rhythm: regular rate and + irregularly irregular Heart Sounds: no murmur Extremities: no edema Gastrointestinal (Abdomen) normal bowel sounds, soft, nontender, no hepatosplenomegaly Discharge Plan Discharge Items Patient Disposition: Personal Alf Reason For Visit: NAUSEA, VOMITING, DIARRHEA Discharge Diagnosis: Nausea/vomiting/Diarrhea-secondary to Norovirus Uncontrolled HTN Hypokalemia UTI Condition on Discharge: Good Activity: As commented below Lifting: Gradually increase as tolerated Bathing: No limitations Exercise/Sports: Gradually increase as tolerated Non-emergency contact: Primary Care Provider Call non-emergency contact if: you have any medication questions and your symptoms worsen Follow-up/Referrals: Edgar Fine PA-C [Primary Care Provider] - Diet: Heart Healthy Addtl Attending Provider Instructions: You can continue taking the reglan three times a day for 3 more days for nausea. You can take the levofloxacin every other day for 2 more doses starting 10/18 for your UTI. Your blood pressure was uncontrolled and your medications were changed to better control this. Please follow up with your PCP. Pending Studies at Discharge: No Stand-Alone Forms: My [employer], Smoking Cessation Skilled Items Patient informed of condition?: Yes DNR: Yes Discharge Level of Care: Other Communicable Disease: Yes (Norovirus) Discharge Prognosis: Improving Lines: None Urinary Catheter: No Medications and DC Order Prescriptions: New diltiazem HCl 240 mg Capsule,Extended Release 24hr 240 mg PO DAILY Qty: 30 0RF metoclopramide HCl 5 mg Tablet 5 mg PO TID 3 Days Qty: 9 0RF hydralazine 50 mg Tablet 50 mg PO TID Qty: 90 0RF levofloxacin 500 mg tablet 500 mg PO Q48H Qty: 2 0RF Rx Instructions: Next dose due 10/18/24 Continued donepezil 5 mg tablet 5 mg PO HS atorvastatin 20 mg tablet 20 mg PO HS sertraline 50 mg tablet 50 mg PO QAM docusate sodium 100 mg Tablet 100 mg PO DAILY PRN (Reason: cnstipation) omeprazole 40 mg capsule,delayed release(DR/EC) 40 mg PO QAM metoprolol tartrate 100 mg tablet 100 mg PO Q12 isosorbide mononitrate 30 mg tablet extended release 24 hr 30 mg PO QAM Eliquis 2.5 mg tablet 2.5 mg PO BID levothyroxine 100 mcg tablet 100 mcg PO QAM famotidine 20 mg tablet 20 mg PO DAILY loratadine 10 mg Tablet 10 mg PO DAILY melatonin 10 mg Tablet,Chewable 10 mg PO HS furosemide [Lasix] 20 mg tablet 20 mg PO DAILY PRN (Reason: weight gain of 3 lbs) cyanocobalamin (vitamin B-12) [Vitamin B-12] 2,500 mcg Tablet, Sublingual 5,000 mcg SUBLINGUAL DAILY nitroglycerin [Nitrostat] 0.4 mg Tablet, Sublingual 0.4 mg sublingual UD PRN (Reason: Chest Pain) Cranberry 4200mg With Vit C 2 softgel PO DAILY acetaminophen 500 mg Tablet 1,000 mg PO .EVERY 4-6 HR MDD 3g PRN (Reason: Flu Symptoms) alum-mag hydroxide-simeth [Antacid Maximum Strength] 400-400-40 mg/5 mL Suspension 20 ml PO DAILY PRN (Reason: upset stomach) lidocaine 4 % Adhesive Patch,Medicated 1 patch TOPICAL DAILY Rx Instructions: on 12 hours off 12 hours zolpidem 10 mg Tablet 5 mg PO HS Rx Instructions: 1/2 tablet dose ondansetron 4 mg Tablet,Disintegrating 4 mg PO .EVERY 6-8 HOURS PRN (Reason: Nausea And Vomiting) magnesium oxide 400 mg magnesium tablet 400 mg PO QAM Discontinued diltiazem HCl 180 mg capsule,ext.rel 24h degradable 180 mg PO DAILY Discharge Orders: Discharge Order (Routine); Ordered 10/16/24 Ordered By: Sil Abad Admission Data Admit Date/Time: 10/12/24 12:40 Attending Provider: Sil Abad Admit Provider: Molly Alexander Primary Care Provider: Edgar Fine Other Providers: Molly Alexander Hospital Stay Data Consultations 10/11/24 02:26 ED Decision to Admit Stat Diagnostic Imagining Performed 10/10/24 22:02 CT angio abd pelvis wo/w con Stat CT angio chest dissec wo/w con Stat Pending Results Patient Have Any Pending Studies at Discharge: No Discharge Instructions Given to Patient (Per Discharging Provider) You can continue taking the reglan three times a day for 3 more days for nausea. You can take the levofloxacin every other day for 2 more doses starting 10/18 for your UTI. Your blood pressure was uncontrolled and your medications were changed to better control this. Please follow up with your PCP. Total Time Total Time Spent Total Time Spent (In Minutes): 35 min Total Time Includes: Examination of the Patient, Discharge Planning and Medication Reconciliation Coding Level of Care Code 83900 INP/OBS DISCH >30 MIN Diagnoses Enteritis due to Norovirus A08.11 Essential hypertension I10 Permanent atrial fibrillation I48.21 UTI (urinary tract infection) N39.0 Cognitive impairment R41.89 Hypokalemia E87.6 Insomnia G47.00
[2024-10-16 12:54] VITALS: BP 171/75
== END 2024-10-16 13:51 | disposition home or self-care (01) | DRG 392 ==
LOC: 2N 20:36 → ED 20:36 → SUATTDRO 10-11 02:33 → 2N 10-11 03:12 → SUATTDRO 10-12 12:40

== ENCOUNTER 2025-04-02 17:27 | Inpatient (IN) ==
--- NOTE | 2025-04-02 17:44 | Emergency Department Note ---
Impression & Plan Abdominal pain, Intussusception, Loose stools ED Provider Note CHIEF COMPLAINT: UTI HISTORY OF PRESENTING ILLNESS: The patient is an 89-year-old female who presents to the emergency department with her son from [facility] due to diarrhea for the past 4 days, fever today, reported increased confusion from staff, and was not able to provide a urine sample at [facility] to rule out a UTI. Patient complains of lower abdominal pain and bloating that began 4 days ago with her diarrhea. They sent her here to the emergency department to collect a urine sample. The patient denies nausea, vomiting, chest pain, shortness of breath, back pain, recent travel, blood in her stool, recent antibiotic use. REVIEW OF SYSTEMS: See HPI for pertinent positives and pertinent negatives. ALLERGIES: Oxycodone, morphine MEDICATIONS: See below PAST MEDICAL HISTORY: See below PHYSICAL EXAM: VITALS: Vitals are noted on the nurses note and reviewed by myself. Vital signs stable. GENERAL: 89-year-old female, in no acute distress, nondiaphoretic, well- developed well-nourished. SKIN: Capillary refill less than 2 seconds. HEENT: Normocephalic. PERRLA. EOMI. Nares patent. Mucous membranes moist. Neck is supple without nuchal rigidity. HEART: Regular rate and rhythm without murmurs gallops or rubs. LUNGS: CTA BL without wheezes, rales or rhonchi. No retractions or accessory muscle use. ABDOMEN: Positive BS x 4. Tenderness upon palpation to the right lower quadrant. All other abdominal quadrants are nontender. The abdomen is soft without masses. Dangelo sign negative. No guarding or rebound tenderness. No ascites. MUSCULOSKELETAL: No gross musculoskeletal defects. No pedal edema. No calf tenderness. NEURO: Patient was alert and oriented to person place and time. Normal sensation on exam to the upper and lower extremities. No focal neurological deficits. DIFFERENTIAL DIAGNOSIS: UTI, pneumonia, C. difficile, gastroenteritis/colitis, sepsis, diverticulitis, bowel perforation, abscess, electrolyte abnormality, hypoglycemia, ERASMO, hepatic encephalopathy, antibiotic side effect, antibiotic associated diarrhea, polypharmacy, arrhythmia, among others. ED COURSE AND MEDICAL DECISION MAKING: HISTORY FROM INDEPENDENT HISTORIAN: The patient herself and her son. MEDICATIONS GIVEN: Denies the need for pain or symptom management. MONITOR: Continuous sampling theory teacher: Order was placed for continuous sampling theory teacher. INTERPRETATION OF LABS: I interpreted the labs with full lab results as below in the lab section of this note. Pertinent lab results discussed in the MDM section below. INTERPRETATION OF IMAGING: Imaging studies were interpreted by myself and read by radiology as per the imaging section of this note. Chest x-ray - Possible small bilateral pleural effusions. CT abdomen pelvis - Ileocecal valve intussusception. Underlying mass cannot be excluded. Direct visualization recommended. No other acute abnormality. CONSULTATIONS: On-call general surgery provider - Presented the patient and the ileocecal valve intussusception finding on CT scan with new onset right lower quadrant abdominal pain and loose stools. Patient was reported to have a low-grade fever at [facility] but vitals are stable here in the ER. They agreed to evaluating the patient here in the emergency department and in the morning regarding possible surgical procedure although this may not be surgical. Will admit to medicine further consult. On-call [facility] hospitalist - Presented the patient to the provider and my conversation with the general surgery team. Discussed that she may require a scope to evaluate the area or possible surgery and due to her reported fever, confusion, abdominal pain, and loose stool that has acutely started 4 days ago I do believe she would warrant admission for further investigation. They agreed to evaluating the patient and admitting her to medicine. MDM SUMMARY: I evaluated the 89-year-old female presents emergency department from [facility] due to 4 days of loose stool, a fever reported today, reported confusion from staff, and being unable to provide a urine sample at [facility] to rule out a UTI. See HPI and physical exam above. IV access was established and labs were obtained. Patient denies the need for pain or symptom management at this time. Chest x-ray shows possible small bilateral pleural effusions. No pneumonia. Urinalysis shows trace protein, trace ketones, no sign of bacteriuria or hematuria. On evaluation the patient does have right lower quadrant abdominal pain. CT abdomen and pelvis shows an ileocecal valve intussusception. Underlying mass cannot be excluded. Recommended direct visualization. No leukocytosis WBC 7.95. RBC 4.25. Hemoglobin hematocrit 11.1/34.3. No electrolyte abnormality. No ERASMO. Lactate 1.4. BNP 98. Procalcitonin normal 0.02. All laboratory and imaging results were thoroughly reviewed with the patient. She became frustrated upon discussion for admission for further evaluation. After discussion with her son and she does agree to the admission. All of her questions were answered. [facility]. The patient was admitted in stable condition. DIAGNOSIS: Abdominal pain, intussusception, loose stools The chart was completed utilizing [employer] Speech voice recognition software. Grammatical errors, random word insertions, pronoun errors, and incomplete sentences are an occasional consequence of this system due to software limitations, ambient noise, and hardware issues. Any formal questions or concerns about the content, text, or information contained within the body of this dictation should be directly addressed to the provider for clarification. Past Med/Surg History Problem List (Updated 04/02/25 @ 22:46 by Taty Sinclair PA-C) Loose stools (Acute) Intussusception (Acute) Abdominal pain (Acute) Diarrhea Low grade fever Intussusception, ileocecal Enteritis due to Norovirus Insomnia Gastroenteritis due to norovirus Cognitive impairment Asymptomatic bacteriuria Acute respiratory alkalosis (Acute) Chest pain (Acute) History of arterial occlusion Acute hyperventilation syndrome (Acute) Acute hypoxic respiratory failure Colonic thickening Arterial occlusion, lower extremity (Acute) Essential hypertension Permanent atrial fibrillation (Acute) Presence of permanent cardiac pacemaker PND (post-nasal drip) Stroke (Acute) Pericardial effusion Thrombocytopenia Female bladder prolapse Acute metabolic encephalopathy UTI (urinary tract infection) (Acute) Acute diastolic CHF (congestive heart failure) Elevated troponin Hypokalemia (Acute) Anticoagulation therapy not indicated Dizziness Hypothyroidism DVT prophylaxis Insomnia Depression (Chronic) B12 deficiency Peripheral neuropathy (Chronic) 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) Cellulitis of left orbit (Acute) Stomach ulcer (Acute) GERD (gastroesophageal reflux disease) (Chronic) Vertigo (Acute) Weakness (Acute) Medical History Aspiration into lower respiratory tract Periorbital cellulitis of left eye Hyperlipidemia LDL goal <70 Thoracic back pain CVA (cerebral vascular accident) Epidural hematoma Weight loss, unintentional Tricuspid regurgitation Tachy-jazmine syndrome Pulmonary hypertension Dyslipidemia Cerebrovascular disease Benign hypertension Aortic regurgitation Anxiety disorder Headache Surgical History H/O cervical spine surgery "cervical decompression with evacuation of cervical epidural hematoma 09/22/2012" S/P tonsillectomy H/O: hysterectomy History of bilateral tubal ligation History of appendectomy Family History Other Family history non-contributory Social History Smoking Status: Never smoker Second Hand Exposure: No; Do You Dip or Chew Tobacco: No; Hx Alcohol Use: No Hx Substance Use: No Preferred Language: [place] Communication Ability: Effective Display Artist Required: No Beliefs That Will Affect Care: None marital status: / Current Living Situation: Alf Current Living Situation Comment: [facility] Feels Safe at Home: Yes Assistive Devices: Walker and Wheelchair Allergies Allergies Allergy/AdvReac Type Severity Reaction Status Date / Time oxycodone AdvReac Intermediate HALLUCINATI Verified 04/02/25 21:05 ONS morphine AdvReac Unknown DELIRIUM Verified 04/02/25 21:05 Home Meds Home Medications Medication Instructions Recorded Confirmed omeprazole 40 mg capsule,delayed 40 mg PO QAM 05/06/18 04/02/25 release atorvastatin 20 mg tablet 20 mg PO HS 11/16/18 04/02/25 docusate sodium 100 mg tablet 100 mg PO DAILY PRN cnstipation 11/16/18 04/02/25 sertraline 50 mg tablet 50 mg PO QAM 11/16/18 04/02/25 donepezil 5 mg tablet 5 mg PO HS 02/09/22 04/02/25 magnesium oxide 400 mg PO QAM 05/13/24 04/02/25 apixaban 2.5 mg tablet (Eliquis) 2.5 mg PO BID 08/31/24 04/02/25 famotidine 20 mg tablet 20 mg PO HS 08/31/24 04/02/25 levothyroxine 100 mcg tablet 100 mcg PO QAM 08/31/24 04/02/25 Cranberry 4200mg With Vit C 2 softgel PO DAILY 10/10/24 04/02/25 acetaminophen 500 mg tablet 1,000 mg PO .EVERY 4-6 HR PRN Flu 10/10/24 04/02/25 Symptoms cyanocobalamin (vitamin B-12) 5,000 mcg sublingual DAILY 10/10/24 04/02/25 2,500 mcg sublingual tablet (Vitamin B-12) furosemide 20 mg tablet (Lasix) 20 mg PO DAILY PRN weight gain of 10/10/24 04/02/25 3 lbs lidocaine 4 % topical patch 1 patch topical DAILY 10/10/24 04/02/25 loratadine 10 mg tablet 10 mg PO DAILY 10/10/24 04/02/25 melatonin 10 mg chewable tablet 10 mg PO HS 10/10/24 04/02/25 nitroglycerin 0.4 mg sublingual 0.4 mg sublingual UD PRN Chest Pain 10/10/24 04/02/25 tablet (Nitrostat) ondansetron 4 mg disintegrating 4 mg PO .EVERY 6-8 HOURS PRN 10/10/24 04/02/25 tablet Nausea And Vomiting bisacodyl 10 mg rectal suppository 10 mg [place] DAILY PRN Constipation 04/02/25 04/02/25 diltiazem HCl 180 mg 180 mg PO DAILY 04/02/25 04/02/25 capsule,extended release 24 hr ferrous sulfate 325 mg (65 mg 325 mg PO DAILY 04/02/25 04/02/25 iron) tablet hydralazine 25 mg tablet 25 mg PO TID 04/02/25 04/02/25 lutein 10 mg tablet 0 mg PO DAILY 04/02/25 04/02/25 menthol 0.44 %-zinc oxide 20.6 % 1 applic topical DAILY PRN 04/02/25 04/02/25 topical ointment (Calmoseptine) irritation/breakdown metoprolol tartrate 50 mg tablet 50 mg PO BID 04/02/25 04/02/25 mirtazapine 7.5 mg tablet 7.5 mg PO HS 04/02/25 04/02/25 Results & Data (ED) Vital Signs Vital Signs - 24 hr 04/02/25 17:30 04/02/25 17:47 04/02/25 18:20 Temperature Source Temporal Artery Scan Pulse Rate 113 H 106 H Pulse Rate [Apical] 114 H Pulse Strength [Apical] Normal Respiratory Rate 20 18 Respiratory Effort / Characteristics Non-Labored Spontaneous Respiratory Depth Normal Respiratory Pattern Regular Blood Pressure 134/69 Blood Pressure [Left Arm] 127/75 Blood Pressure Mean 90 Blood Pressure Mean [Left Arm] 92 Pulse Oximetry 98 96 Oxygen Delivery Method Room Air Room Air Sepsis Recent Fever Within 48 Hours Yes Sepsis New/Unexplained Change in Mental Status N/A Sepsis Action Taken by Nursing No Action Required 04/02/25 20:00 04/02/25 20:44 04/02/25 21:37 Temperature Source Pulse Rate 99 H Pulse Rate [Apical] 97 H 99 H Pulse Strength [Apical] Respiratory Rate 30 H 16 Respiratory Effort / Characteristics Non-Labored Spontaneous Respiratory Depth Normal Normal Respiratory Pattern Regular Blood Pressure Blood Pressure [Left Arm] 144/93 H 171/101 H Blood Pressure Mean Blood Pressure Mean [Left Arm] 110 124 Pulse Oximetry 95 97 Oxygen Delivery Method Room Air Room Air Sepsis Recent Fever Within 48 Hours Sepsis New/Unexplained Change in Mental Status Sepsis Action Taken by Nursing 04/02/25 21:42 Temperature Source Pulse Rate Pulse Rate [Apical] 108 H Pulse Strength [Apical] Respiratory Rate 20 Respiratory Effort / Characteristics Respiratory Depth Respiratory Pattern Blood Pressure Blood Pressure [Left Arm] 177/103 H Blood Pressure Mean Blood Pressure Mean [Left Arm] 127 Pulse Oximetry 96 Oxygen Delivery Method Room Air Sepsis Recent Fever Within 48 Hours Sepsis New/Unexplained Change in Mental Status Sepsis Action Taken by Nursing Laboratory Data 04/03/25 03:49 04/03/25 03:49 Lab Results 04/02/25 04/02/25 04/02/25 Range/Units 17:50 17:52 18:10 WBC 7.95 (4.8-10.8) K/ul RBC 4.25 (4.20-5.40) M/uL Hgb 11.1 L (12.0-16.0) g/dl Hct 34.3 L (37.0-47.0) % MCV 80.7 (80.0-100.0) fL MCH 26.1 (25.0-34.0) pg MCHC 32.4 (32.0-36.0) g/dL RDW Std Deviation 59.8 H (36.4-46.3) fL RDW Coeff of Alfredo 21.0 H (11.5-14.5) % Plt Count 190 (130-400) K/uL MPV 12.0 (9.4-12.4) fL Immature Gran % (Auto) 0.4 % Neut % (Auto) 59.0 % Lymph % (Auto) 28.6 % Mellette % (Auto) 10.3 % Eos % (Auto) 0.9 % Baso % (Auto) 0.8 % Neut # (Auto) 4.70 (1.40-6.50) K/uL Lymph # (Auto) 2.27 (1.20-3.40) K/uL Mellette # (Auto) 0.82 H (0.11-0.59) K/uL Eos # (Auto) 0.07 (0.00-0.50) K/uL Baso # (Auto) 0.06 (0.00-0.20) K/uL Immature Gran # (Auto) 0.03 (0.01-0.20) K/uL Poikilocytosis Present Anisocytosis Present Ovalocytes 1+ Acanthocytes (Spur) 1+ PT 11.4 (9.0-12.0) Seconds INR 1.1 (0.9-1.1) APTT 30 (21-31) Seconds PTT Ratio 1.1 Sodium 140 (136-145) mmol/L Potassium 4.5 (3.5-5.1) mmol/L Chloride 106 (98-107) mmol/L Carbon Dioxide 20 L (21-32) mmol/L Anion Gap 14 H (3-11) BUN 19 (6-23) mg/dl Creatinine 1.17 (0.6-1.2) mg/dl Est Cr Clr Drug Dosing 24.1 ml/min eGFR 44.88 BUN/Creatinine Ratio 16.2 (10-20) Glucose 86 (70-99(Fasting)) mg/dl Lactate 1.4 (0.4-2.0) mmol/L Calcium 9.3 (8.6-10.3) mg/dl Total Bilirubin 0.6 (0.2-1.0) mg/dl AST 27 (13-39) U/L ALT 10 (7-52) U/L Alkaline Phosphatase 75 (34-104) U/L B-Natriuretic Peptide 98 (0-100) pg/ml Total Protein 6.4 (6.0-8.3) gm/dl Albumin 3.9 (3.4-5.0) gm/dl Globulin 2.5 (2.5-4.0) gm/dl Albumin/Globulin Ratio 1.6 (0.9-2) Procalcitonin 0.02 (0-0.5) ng/ml Administered Medications Lactated Ringer's (Lr) 1,000 mls @ 125 mls/hr IV .Q8H ANDRA Stop: 04/03/25 13:59 Last Admin: 04/03/25 00:46 Dose: 125 mls/hr Documented By: JACOB Pantoprazole Sodium (Protonix) 40 mg in 10 mls @ 5 mls/min IV DAILY ANDRA Stop: 05/03/25 08:59 Last Admin: 04/03/25 08:11 Dose: 5 mls/min Documented By: Metoprolol Tartrate (Metoprolol Tartrate 1 Mg/Ml Vial) 5 mg IV Q4 ANDRA Stop: 05/03/25 03:59 Last Admin: 04/03/25 08:12 Dose: 5 mg Documented By: Admin: 04/03/25 03:54 Dose: 5 mg Documented By: JACOB Discontinued Medications Cefoxitin Sodium (Mefoxin) 2,000 mg in 60 mls @ 100 mls/hr IV NOW STA Stop: 04/03/25 11:35 Last Admin: 04/03/25 12:15 Dose: 100 mls/hr Documented By: [id number] Ioversol (Optiray 320 100ml) 93 ml IV ONCE ONE Stop: 04/02/25 19:35 Last Admin: 04/02/25 19:35 Dose: 93 ml Documented By: TISH Metoprolol Tartrate (Metoprolol Tartrate 1 Mg/Ml Vial) 5 mg IV NOW STA Stop: 04/02/25 22:53 Last Admin: 04/03/25 00:41 Dose: 5 mg Documented By: JACOB Imaging Data Radiologist's Impression: Abdomen/Pelvis CT 04/02/25 21:08 Exam(s): CT ABDOMEN + PELVIS With Contrast Oral - High Density Amt: 30 ML GASTRO EXAM: CT Abdomen and Pelvis With Intravenous Contrast CLINICAL HISTORY: intussusception; oral contrast only. TECHNIQUE: Axial computed tomography images of the abdomen and pelvis with intravenous contrast. CTDI is 7.57 mGy and DLP is 346.67 mGy-cm. Automated exposure control was utilized for the study. A dose lowering technique was utilized adhering to the principles of ALARA. CONTRAST: Patient received 30 ML GASTRO of Oral - High Density contrast COMPARISON: CT abdomen and pelvis performed 1932 hours FINDINGS: Lung bases: Unremarkable. No mass. No consolidation. Pleural space: Trace right pleural effusion, similar. Heart: Cardiomegaly. Moderate pericardial effusion, similar. ABDOMEN: Liver: Unremarkable. No mass. Gallbladder and bile ducts: Unremarkable. No calcified stones. No ductal dilation. Pancreas: Unremarkable. No mass. No ductal dilation. Spleen: Unremarkable. No splenomegaly. Adrenals: Unremarkable. No mass. Kidneys and ureters: Excreted contrast in the renal collecting systems bilaterally. No hydronephrosis. Stomach and bowel: The intussusception involving the ileocecal valve extending into the proximal ascending colon is again noted measuring a proximally 7.9 cm in length. There is oral contrast from the stomach throughout the small bowel with minimal contrast extending into the narrowed terminal ileum. There is trace contrast staining in a meniscal pattern surrounding the presumed leading edge of the intussusception. The hypoattenuating structure noted along the leading edge of the intussusception present on the previous contrast study, measuring 3.2 x 3. 4 x 3.9 cm on the previous examination (coronal images 21 -33) is not as well demonstrated on this study without IV contrast. The area is similar in morphologic appearance with underlying density of 47. Further detailed evaluation for a leading edge mass is limited. No definite obstruction. PELVIS: Appendix: The appendix is not clearly delineated. Bladder: The bladder is moderately distended with excreted contrast. Reproductive: Unremarkable as visualized. ABDOMEN and PELVIS: Intraperitoneal space: Unremarkable. No free air. No significant fluid collection. Bones/joints: No acute fracture. No dislocation. Soft tissues: Unremarkable. Vasculature: Atherosclerotic calcification of the aorta. No abdominal aortic aneurysm. Lymph nodes: Unremarkable. No enlarged lymph nodes. IMPRESSION: The intussusception involving the ileocecal valve extending into the proximal ascending colon is again noted measuring a proximally 7.9 cm in length. There is oral contrast from the stomach throughout the small bowel with minimal contrast extending into the narrowed terminal ileum. There is trace contrast staining in a meniscal pattern surrounding the presumed leading edge of the intussusception, without evidence for high- grade obstruction. The hypoattenuating structure noted along the leading edge of the intussusception present on the previous contrast study, measuring 3.2 x 3.4 x 3.9 cm on the previous examination (coronal images 21 -33) is not as well demonstrated on this study without IV contrast. The area is similar in morphologic appearance with underlying density of 47. Further detailed evaluation for a leading edge mass is limited. Again recommend correlation with potential endoscopic findings. Electronically signed by: Dannie Solis MD 04/03/25 01:01 AM Discharge Plan Visit Data Chief Complaint: Urinary Symptoms Stated Complaint: UTI ED Provider: Abimael Sharpe ED Midlevel Provider: Taty Sinclair Discharge Problem: Abdominal pain, Intussusception, Loose stools Patient Disposition: Admitted As Inpatient Condition: Good Discharge Instructions Interventions: ED Discharge Assessment Last Done: 04/02/25 22:24 Discharge Problem: Abdominal pain Qualifiers: Abdominal location: right lower quadrant Qualified Code(s): R10.31 - Right lower quadrant pain
[2025-04-02 18:13] LABS: Hematocrit (blood only) 34.3 % (37.0-47.0); Hemoglobin 11.1 g/dl (12.0-16.0); Immature Granulocytes # (auto) 0.03 K/uL (0.01-0.20); Immature Granulocytes % (auto) 0.4 %; Mean Corpuscular Hemoglobin 26.1 pg (25.0-34.0); Mean Corpuscular Volume 80.7 fL (80.0-100.0); Platelet Count 190 K/uL (130-400); RDW Standard Deviation 59.8 fL (36.4-46.3); Red Blood Count 4.25 M/uL (4.20-5.40); White Blood Count 7.95 K/ul (4.8-10.8)
[2025-04-02 18:37] LABS: Chloride 106.0 mmol/L (98-107); Potassium 4.5 mmol/L (3.5-5.1); Sodium 140.0 mmol/L (136-145)
[2025-04-02 18:39] LABS: Acanthocytes 1+; Anisocytosis Present; Ovalocytes 1+; Poikilocytosis Present
--- NOTE | 2025-04-02 18:47 | XRay Report ---
Clinical History: Fever Technique: A frontal view of the chest was obtained Findings: There are no definite pulmonary infiltrates. The heart size is at the upper limit of normal. No definite pneumothorax is seen. There are possible small bilateral pleural effusions No fracture is noted. There is a left chest wall pacemaker device Impression: Possible small bilateral pleural effusions Electronically signed by Jethro Streeter 04-02-2025 6:47 PM
[2025-04-02 19:09] LABS: Appearance Urine Clear (Clear); Bacteria Urine Automated None Seen (None Seen); Epithelial Cell Urine Auto 0-2 /hpf (0-2); Glucose Urine UA Negative (Negative); RBC Urine Automated 0-2 /hpf (0-2); WBC Urine Automated 0-5 /hpf (0-5)
[2025-04-02 19:14] LABS: Alanine Aminotransferase 10.0 U/L (7-52); Albumin Globulin Ratio 1.6 (0.9-2); Alkaline Phosphatase 75.0 U/L (34-104); Anion Gap 14.0 (3-11); Bilirubin,Total 0.6 mg/dl (0.2-1.0); Blood Urea Nitrogen 19.0 mg/dl (6-23); Calcium 9.3 mg/dl (8.6-10.3); Carbon Dioxide 20.0 mmol/L (21-32); Creatinine Clr Calc Pharmacy 24.1 ml/min; Globulin 2.5 gm/dl (2.5-4.0); Glucose 86.0 mg/dl (70-99(Fasting)); Total Protein 6.4 gm/dl (6.0-8.3)
[2025-04-02] MEDS: OPTIRAY 320 100ml IV ONE (19:35)
--- NOTE | 2025-04-02 20:19 | CT Scan Report ---
CT of the abdomen pelvis withIV contrast Technique: Postcontrast axial images of the abdomen and pelvis. Coronal and sagittal reformatted images made available for review No comparison Findings: Small bilateral pleural effusions right greater than left. Coronary artery calcifications. Cardiomegaly. Pericardial effusion. There are few scattered subcentimeter hypodensities within the liver too small for further density characterization. Gallbladder is distended but otherwise unremarkable. There is a small cyst within the tail of the pancreas measuring 1 cm. Left adrenal gland thickening. Extensive calcification of the abdominal aorta and its branch vessels. There is no free air or intestinal obstruction. There is an intussusception involving the ileocecal valve excessive agitating itself into the proximal ascending colon. This is not resulted in significant bowel obstruction. Uterus is surgically absent. Urinary bladder is unremarkable. Bone windows demonstrate no focal abnormality Impression Ileocecal valve intussusception. Underlying mass cannot be excluded. Direct visual inspection is recommended for further evaluation. Remaining solid abdominal organs are unremarkable in appearance. Electronically signed by Isma Maria 04-02-2025 8:19 PM
--- NOTE | 2025-04-02 20:47 | Emergency Department Note ---
ED Visit Note I was consulted by the Advanced Practice Provider. I personally made/approved the management plan and take responsibility for the patient management. I performed a substantive portion of the visit. This includes the aspects of: [-I independently interpreted the following studies:][Chest x-ray shows some chronic change, no focal pneumonia.] Patient presents with concerns for UTI. No findings of urine infection by our urinalysis results. Laboratory work was reassuring. CT imaging suggests an intussusception. Surgery was consulted. Observation on the medical service was recommended. The on-call hospitalist was consulted. .
--- NOTE | 2025-04-02 21:25 | Surgery Consultation ---
Date of Consultation April 02, 2025 Assessment & Plan (1) Intussusception, ileocecal: At the request of the emergency department staff, I evaluated the patient in room A10. Surgical recommendations are as follows: It appears by CAT scan that the patient has an intussusception at the iliocecal valve Due to the patient's advanced age and abdominal tenderness, along with the fact that she had fevers I suggested to the patient that we admit her to the hospital for observation I did review the CT scan with my attending physician, Dr. Melissa and he is recommended we obtain a CT scan with oral contrast for further evaluation Initially the patient was reluctant to stay in the hospital but after further discussion with her and her son she was agreeable to undergoing a repeat CT scan utilizing oral contrast and being admitted to the hospital tonight I did discuss with the patient that hopefully the CT scan with oral contrast will better delineate the intussusception. I did discuss with her that sometimes these will require surgical intervention for definitive treatment Recommend hydrating the patient IV fluid Would recommend keeping her n.p.o. for the present time At the time of my interview the patient was nontoxic-appearing The patient does have Eliquis listed on her medication list and would recommend holding this medication if clinically feasible until his ascertain whether or not the patient will require any procedural or surgical intervention Additional recommendations will be forthcoming based on her clinical course as unfolds Supervising Physician Co-Signing Physician Notes pnt d/w KENYA, labs and imaging reviewed, agree with above. diarrhea and abd pain, CT with ileocolic intussusception. Admit to medicine. repeat CT with oral contrast. If no resolution, will likely need exploration with right hemicolectomy tomorrow. Hold Elliquis. History of Present Illness Reason for Consultation: Ileocecal intussusception History of Present Illness This is an 81-year-old female who presented to the hospital from her personal- shelter secondary to fever. I visited with the patient in room 810 in the emergency department. Her son was present at bedside who did help supplement the patient's history, as the patient proved to be not the most reliable histo aiyana.. The patient was reportedly having fevers earlier today and the staff at her living facility was concerned that she may have had a urinary tract infection. She was unable to provide a urine specimen and they were unable to obtain a urine specimen so they sent her to the emergency department for further evaluation. The patient does note that she has had fevers over the past 24 hours but denies any shakes or chills. She denies any dysuria. She says that she has not had any abdominal pain and has not had any nausea or vomiting. Patient says that she has had diarrhea for the past 3 days but it seems to be decreasing in frequency. She also denies any hematemesis or melena. Patient says that she has not had any recent falls or head injuries. She denies any previous abdominal surgeries (reviewed chart shows that the patient has listed surgeries as a hysterectomy, appendectomy, and tubal ligation). Patient says that she does not ever recall having a colonoscopy. Patient notes that she does not ambulate very much and she usually spends most of the day in a wheelchair. Since arrival to the hospital she has had labs and imaging which had been reviewed. CBC revealed white blood cell count and platelet count were normal. Her hemoglobin and hematocrit were 11.1 and 34.3. Chemistry profile showed sodium and potassium as well as the BUN and creatinine were normal. Lactic acid level was not elevated at 1.4. She did not have any elevation of her LFTs or lipase. Urinalysis was not indicative of infection. Imaging included a chest x-ray that showed possible small bilateral pleural effusions. She also underwent a CT scan of the abdomen pelvis that showed concern for ileocecal valve intussusception with the inability to exclude underlying mass. There is no free intraperitoneal air. There is no evidence of intestinal obstruction on this study. Of note, the patient's uterus was noted to be surgically absent (as noted above the patient denied any prior abdominal surgeries). At the time of my interview she was resting comfortably bed and she was in no distress Allergies Allergy/AdvReac Type Severity Reaction Status Date / Time oxycodone AdvReac Intermediate HALLUCINATI Verified 04/02/25 21:05 ONS morphine AdvReac Unknown DELIRIUM Verified 04/02/25 21:05 Home Medications Medication Instructions Recorded Confirmed Type omeprazole 40 mg capsule,delayed 40 mg PO QAM 05/06/18 04/02/25 History release atorvastatin 20 mg tablet 20 mg PO HS 11/16/18 04/02/25 History docusate sodium 100 mg tablet 100 mg PO DAILY PRN cnstipation 11/16/18 04/02/25 History sertraline 50 mg tablet 50 mg PO QAM 11/16/18 04/02/25 History donepezil 5 mg tablet 5 mg PO HS 02/09/22 04/02/25 History magnesium oxide 400 mg PO QAM 05/13/24 04/02/25 History apixaban 2.5 mg tablet (Eliquis) 2.5 mg PO BID 08/31/24 04/02/25 History famotidine 20 mg tablet 20 mg PO HS 08/31/24 04/02/25 History levothyroxine 100 mcg tablet 100 mcg PO QAM 08/31/24 04/02/25 History Cranberry 4200mg With Vit C 2 softgel PO DAILY 10/10/24 04/02/25 History acetaminophen 500 mg tablet 1,000 mg PO .EVERY 4-6 HR PRN Flu 10/10/24 04/02/25 History Symptoms cyanocobalamin (vitamin B-12) 5,000 mcg sublingual DAILY 10/10/24 04/02/25 Hist ory 2,500 mcg sublingual tablet (Vitamin B-12) furosemide 20 mg tablet (Lasix) 20 mg PO DAILY PRN weight gain of 10/10/24 04/02/25 History 3 lbs lidocaine 4 % topical patch 1 patch topical DAILY 10/10/24 04/02/25 History loratadine 10 mg tablet 10 mg PO DAILY 10/10/24 04/02/25 History melatonin 10 mg chewable tablet 10 mg PO HS 10/10/24 04/02/25 History nitroglycerin 0.4 mg sublingual 0.4 mg sublingual UD PRN Chest Pain 10/10/24 04/02/25 History tablet (Nitrostat) ondansetron 4 mg disintegrating 4 mg PO .EVERY 6-8 HOURS PRN 10/10/24 04/02/25 History tablet Nausea And Vomiting bisacodyl 10 mg rectal suppository 10 mg OK DAILY PRN Constipation 04/02/25 04/02/25 History diltiazem HCl 180 mg 180 mg PO DAILY 04/02/25 04/02/25 History capsule,extended release 24 hr ferrous sulfate 325 mg (65 mg 325 mg PO DAILY 04/02/25 04/02/25 History iron) tablet hydralazine 25 mg tablet 25 mg PO TID 04/02/25 04/02/25 History lutein 10 mg tablet 0 mg PO DAILY 04/02/25 04/02/25 History menthol 0.44 %-zinc oxide 20.6 % 1 applic topical DAILY PRN 04/02/25 04/02/25 History topical ointment (Calmoseptine) irritation/breakdown metoprolol tartrate 50 mg tablet 50 mg PO BID 04/02/25 04/02/25 History mirtazapine 7.5 mg tablet 7.5 mg PO HS 04/02/25 04/02/25 History Patient History Medical History Aspiration into lower respiratory tract Periorbital cellulitis of left eye Hyperlipidemia LDL goal <70 Thoracic back pain CVA (cerebral vascular accident) Epidural hematoma Weight loss, unintentional Tricuspid regurgitation Tachy-jazmine syndrome Pulmonary hypertension Dyslipidemia Cerebrovascular disease Benign hypertension Aortic regurgitation Anxiety disorder Headache Surgical History H/O cervical spine surgery "cervical decompression with evacuation of cervical epidural hematoma 09/22/2012" S/P tonsillectomy H/O: hysterectomy History of bilateral tubal ligation History of appendectomy Family History Other Family history non-contributory Social History Smoking Status: Never smoker Do You Dip or Chew Tobacco: No; Hx Alcohol Use: No Hx Substance Use: No Preferred Language: Cymraes Communication Ability: Effective Vamp Presser Required: No Beliefs That Will Affect Care: None marital status: / Current Living Situation: Personal Care Facility Current Living Situation Comment: [facility] Feels Safe at Home: Yes Assistive Devices: Walker Review of Systems Review of Systems: All systems reviewed & are unremarkable except as noted in HPI & below Physical Exam Constitutional: + thin; no acute distress Eyes: Wears glasses ENMT: Ears: no hearing impairment and no external ear abnormality Mouth: no oropharynx abnormality Neck: trachea midline Respiratory: normal respiratory effort; no respiratory distress and no labored breathing Cardiovascular: Rate/Rhythm: regular rhythm Gastrointestinal (Abdomen): Abdomen is soft and nonrigid. There is no rebound tenderness, guarding, or signs of peritonitis. I do not palpate any masses. Patient was noted to have tenderness with palpation in the right lower quadrant (this was only with deep palpation). She did not have tenderness in any other quadrants of her abdomen Musculoskeletal: No calf tenderness Skin: no rashes Neurologic: moves all extremities Psychiatric: A+Ox3, euthymic affect Results & Data Vital Signs (Past 12 Hours) Vital Signs Pulse Pulse Resp BP BP Pulse Ox O2 Del Method 04/02/25 20:00 97 H 30 H 144/93 H 95 Room Air 04/02/25 18:20 114 H 18 127/75 96 Room Air 04/02/25 17:47 106 H 04/02/25 17:30 113 H 20 134/69 98 Room Air PG Care Time/CCT Total # of Minutes Spent Total Time Spent with Patient: Total time spent is greater than 50% in coordination of care (as documented) at patient's floor/unit and/or counseling patient: Coding Level of Care Code 46263 INT INP/OBS CARE 3/75MIN Diagnoses Intussusception, ileocecal K56.1
[2025-04-02 21:44] LABS: INR 1.1 (0.9-1.1); Partial Thromboplastin Time 30 Seconds (21-31); Prothrombin Time 11.4 Seconds (9.0-12.0)
--- NOTE | 2025-04-02 22:17 | History & Physical Report ---
Date of Service April 02, 2025 Assessment & Plan (1) Intussusception, ileocecal: (2) Low grade fever: (3) Permanent atrial fibrillation: (4) Presence of permanent cardiac pacemaker: (5) Diarrhea: Plan Ms. Monroy is an 89 y.o. F with PMHx of afib, s/p permanent cardiac pa cemaker, CHF, stroke, HTN who presents to the hospital due to low grade fever and diarrhea. #Diarrhea/Intussusception - Labs WNL in ED - Lactate 1.4 - CT abdomen w/o contrast showed ileocecal valve intussusception - General surgery consulted, plan for repeat CT abdomen with oral contrast, pending - NPO at midnight / for possible surgical intervention in AM - LR 125 mL/hr for 2 L - Stool Biofire pending - BMP and CBC in AM #Fever - Likely inflammatory reaction, afebrile in ED - UA negative - Chest X-ray negative, showed possible bilateral pleural effusions - Normal WBC count, no signs of sepsis, plan to hold off on IV Abx at this time - Continue to monitor vitals daily #Afib - S/p placement of permanent cardiac pacemaker - Hold home Eliquis due to possible surgical intervention #HTN - Start Lopressor IV 5mg q4 with hold parameters #GERD - Protonix IV - Zofran PRN Dispo: PCU tele Code: DNR/DNI Diet: NPO at midnight VTE Prophylaxis: Lovenox History of Present Illness Chief Complaint: fever, diarrhea Primary Care Provider: Jamie Norton DO Ms. Monroy is an 89 y.o. F with PMHx of afib, s/p permanent cardiac pacemaker, CHF, stroke, HTN who presents to the hospital due to low grade fever and diarrhea. Patient lives at [facility]. Reports 101 fever this morning, however denies cough, sore throat, or other sick symptoms. Patient also states she has 4 day history of diarrhea. Reports 2-4 bowel movements per day. Denies blood in BM. Last BM was today morning. She visited [facility] however was told to come to the ED since she was not able to provide a urine sample. Denies dysuria and blood in urine however reports urinary urgency for past 2 months. Urinates 3-4x per day. Denies CP, SOB, AP, lightheadedness. She is unsure of which medications she takes on daily, but takes Eliquis per chart review. No other acute complaints. Allergies Allergy/AdvReac Type Severity Reaction Status Date / Time oxycodone AdvReac Intermediate HALLUCINATI Verified 04/02/25 21:05 ONS morphine AdvReac Unknown DELIRIUM Verified 04/02/25 21:05 Home Medications Medication Instructions Recorded Confirmed Type omeprazole 40 mg capsule,delayed 40 mg PO QAM 05/06/18 04/02/25 History release atorvastatin 20 mg tablet 20 mg PO HS 11/16/18 04/02/25 History docusate sodium 100 mg tablet 100 mg PO DAILY PRN cnstipation 11/16/18 04/02/25 History sertraline 50 mg tablet 50 mg PO QAM 11/16/18 04/02/25 History donepezil 5 mg tablet 5 mg PO HS 02/09/22 04/02/25 History magnesium oxide 400 mg PO QAM 05/13/24 04/02/25 History apixaban 2.5 mg tablet (Eliquis) 2.5 mg PO BID 08/31/24 04/02/25 History famotidine 20 mg tablet 20 mg PO HS 08/31/24 04/02/25 History levothyroxine 100 mcg tablet 100 mcg PO QAM 08/31/24 04/02/25 History Cranberry 4200mg With Vit C 2 softgel PO DAILY 10/10/24 04/02/25 History acetaminophen 500 mg tablet 1,000 mg PO .EVERY 4-6 HR PRN Flu 10/10/24 04/02/25 History Symptoms cyanocobalamin (vitamin B-12) 5,000 mcg sublingual DAILY 10/10/24 04/02/25 History 2,500 mcg sublingual tablet (Vitamin B-12) furosemide 20 mg tablet (Lasix) 20 mg PO DAILY PRN weight gain of 10/10/24 04/02/25 History 3 lbs lidocaine 4 % topical patch 1 patch topical DAILY 10/10/24 04/02/25 History loratadine 10 mg tablet 10 mg PO DAILY 10/10/24 04/02/25 History melatonin 10 mg chewable tablet 10 mg PO HS 10/10/24 04/02/25 History nitroglycerin 0.4 mg sublingual 0.4 mg sublingual UD PRN Chest Pain 10/10/24 04/02/25 History tablet (Nitrostat) ondansetron 4 mg disintegrating 4 mg PO .EVERY 6-8 HOURS PRN 10/10/24 04/02/25 History tablet Nausea And Vomiting bisacodyl 10 mg rectal suppository 10 mg VA DAILY PRN Constipation 04/02/25 04/02/25 History diltiazem HCl 180 mg 180 mg PO DAILY 04/02/25 04/02/25 History capsule,extended release 24 hr ferrous sulfate 325 mg (65 mg 325 mg PO DAILY 04/02/25 04/02/25 History iron) tablet hydralazine 25 mg tablet 25 mg PO TID 04/02/25 04/02/25 History lutein 10 mg tablet 0 mg PO DAILY 04/02/25 04/02/25 History menthol 0.44 %-zinc oxide 20.6 % 1 applic topical DAILY PRN 04/02/25 04/02/25 History topical ointment (Calmoseptine) irritation/breakdown metoprolol tartrate 50 mg tablet 50 mg PO BID 04/02/25 04/02/25 History mirtazapine 7.5 mg tablet 7.5 mg PO HS 04/02/25 04/02/25 History Past Med/Surg History Problem List (Updated 04/02/25 @ 22:46 by Taty Sinclair PA-C) Loose stools (Acute) Intussusception (Acute) Abdominal pain (Acute) Diarrhea Low grade fever Intussusception, ileocecal Enteritis due to Norovirus Insomnia Gastroenteritis due to norovirus Cognitive impairment Asymptomatic bacteriuria Acute respiratory alkalosis (Acute) Chest pain (Acute) History of arterial occlusion Acute hyperventilation syndrome (Acute) Acute hypoxic respiratory failure Colonic thickening Arterial occlusion, lower extremity (Acute) Essential hypertension Permanent atrial fibrillation (Acute) Presence of permanent cardiac pacemaker PND (post-nasal drip) Stroke (Acute) Pericardial effusion Thrombocytopenia Female bladder prolapse Acute metabolic encephalopathy UTI (urinary tract infection) (Acute) Acute diastolic CHF (congestive heart failure) Elevated troponin Hypokalemia (Acute) Anticoagulation therapy not indicated Dizziness Hypothyroidism DVT prophylaxis Insomnia Depression (Chronic) B12 deficiency Peripheral neuropathy (Chronic) 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) Cellulitis of left orbit (Acute) Stomach ulcer (Acute) GERD (gastroesophageal reflux disease) (Chronic) Vertigo (Acute) Weakness (Acute) Medical History Aspiration into lower respiratory tract Periorbital cellulitis of left eye Hyperlipidemia LDL goal <70 Thoracic back pain CVA (cerebral vascular accident) Epidural hematoma Weight loss, unintentional Tricuspid regurgitation Tachy-jazmine syndrome Pulmonary hypertension Dyslipidemia Cerebrovascular disease Benign hypertension Aortic regurgitation Anxiety disorder Headache Surgical History H/O cervical spine surgery "cervical decompression with evacuation of cervical epidural hematoma 09/22/2012" S/P tonsillectomy H/O: hysterectomy History of bilateral tubal ligation History of appendectomy Family History Other Family history non-contributory Social History Smoking Status: Never smoker Do You Dip or Chew Tobacco: No; Hx Alcohol Use: No Hx Substance Use: No Preferred Language: Georgian Communication Ability: Effective District Sales Representative Required: No Beliefs That Will Affect Care: None marital status: / Current Living Situation: Personal Care Facility Current Living Situation Comment: [facility] Feels Safe at Home: Yes Assistive Devices: Walker Review of Systems Constitutional: as per Subjective / HPI Physical Exam Constitutional: WD/WN, vitals as above Respiratory: normal respiratory effort, lungs clear to auscultation Cardiovascular: Rate/Rhythm: + tachycardic Heart Sounds: normal S1 and normal S2 no edema Gastrointestinal (Abdomen): Inspection/Auscultation: + abdominal surgical incision (midline post-hysterectomy scar) Percussion/Palpation: + abdomen tender (upon palpation in RLQ) Skin: no rashes, warm and dry Psychiatric: A+Ox3, euthymic affect Results & Data Results & Data Vital Signs (Past 12 Hours) Vital Signs Pulse Pulse Resp BP BP Pulse Ox O2 Del Method 04/02/25 21:42 108 H 20 177/103 H 96 Room Air 04/02/25 21:37 99 H 04/02/25 20:00 97 H 30 H 144/93 H 95 Room Air 04/02/25 18:20 114 H 18 127/75 96 Room Air 04/02/25 17:47 106 H 04/02/25 17:30 113 H 20 134/69 98 Room Air Code Status & VTE Plan VTE Prophylaxis Plan VTE Prophylaxis will be ordered: Yes Supervising Physician Co-Signing Physician Notes Attending addendum: I have physically seen this patient, have supervised the medical residents activities, and agree with the H&P unless as otherwise noted. Assessment and Plan: The patient is an 89-year-old female with past medical history including enteritis due to norovirus 10/11/2024, cognitive impairment, acute hyperventilation syndrome, lower extremity arterial occlusion, hypertension, permanent atrial fibrillation, stroke, status post cardiac pacemaker, CHF, pericardial effusion, history of UTI, hypothyroidism, depression, peripheral neuropathy, GERD, and stomach ulcer. She presents to the emergency department due to complaints of diarrhea over the past 4 days, and elevated temperature. She denies recent travels or sick exposures. She reports averaging 3-4 bowel movements per day. Ileocecal valve intussusception/possible underlying mass- CT scan abdomen pelvis notes the above Direct visual inspection is suggested per radiology Patient was evaluated by general surgery, who have ordered CT scan with oral contrast, to see if this improves intussusception Patient will be n.p.o. after midnight for possible procedure in the a.m. Laboratories, CBC with differential and chemistry profile overall unremarkable Placed on LR at 125 mL/h x 2 L Stool BioFire ordered and pending, Pantoprazole 40 mg IV daily Zofran 4 mg IV every 6 hours as needed Acetaminophen 1 g IV every 8 hours as needed for mild pain or fever Follow serial CBC with differential and BMP Subjective report of fevers- Patient has been afebrile during her stay in the emergency department Follow blood culture and sensitivity If fever recurs, will place on antibiotics at that time Atrial fibrillation/hypertension/presence of permanent cardiac pacemaker/history of arterial occlusion lower extremity- Holding Eliquis due to possible procedure in the a.m. Would not start heparin drip at this time Holding oral medications, including metoprolol, hydralazine, magnesium oxide, and diltiazem Lopressor 5 mg IV every 4 hours, hold for heart rate less than 60 or systolic blood pressure less than 120 Mood disorder/dementia- Holding sertraline, mirtazapine, melatonin, donepezil for now due to potential procedure in the a.m. Hypothyroidism- For now hold levothyroxine Resident Activity Tracking Resident Involvement: Resident Care Provided Care Provided: Adult [facility] Medicine
[2025-04-02] MEDS ORDERED: ONDANSETRON INJ 2 MG/ML 2 ML VIAL IV PRN (22:52)
[2025-04-02] MEDS ORDERED: ACETAMINOPHEN 500 MG TAB PO PRN (22:52)
--- NOTE | 2025-04-02 23:49 | Billing Data ---
Date of Service April 02, 2025 Coding Level of Care Code 03353 INT INP/OBS CARE
[2025-04-03] MEDS: METOPROLOL TARTRATE 1 MG/ML VIAL IV STA (00:41)
[2025-04-03] MEDS: LACTATED RINGER'S 1,000 ML IV SCH ×2 (00:46→16:38)
--- NOTE | 2025-04-03 01:02 | CT Scan Report ---
Exam(s): CT ABDOMEN + PELVIS With Contrast Oral - High Density Amt: 30 ML GASTRO EXAM: CT Abdomen and Pelvis With Intravenous Contrast CLINICAL HISTORY: intussusception; oral contrast only. TECHNIQUE: Axial computed tomography images of the abdomen and pelvis with intravenous contrast. CTDI is 7.57 mGy and DLP is 346.67 mGy-cm. Automated exposure control was utilized for the study. A dose lowering technique was utilized adhering to the principles of ALARA. CONTRAST: Patient received 30 ML GASTRO of Oral - High Density contrast COMPARISON: CT abdomen and pelvis performed 1932 hours FINDINGS: Lung bases: Unremarkable. No mass. No consolidation. Pleural space: Trace right pleural effusion, similar. Heart: Cardiomegaly. Moderate pericardial effusion, similar. ABDOMEN: Liver: Unremarkable. No mass. Gallbladder and bile ducts: Unremarkable. No calcified stones. No ductal dilation. Pancreas: Unremarkable. No mass. No ductal dilation. Spleen: Unremarkable. No splenomegaly. Adrenals: Unremarkable. No mass. Kidneys and ureters: Excreted contrast in the renal collecting systems bilaterally. No hydronephrosis. Stomach and bowel: The intussusception involving the ileocecal valve extending into the proximal ascending colon is again noted measuring a proximally 7.9 cm in length. There is oral contrast from the stomach throughout the small bowel with minimal contrast extending into the narrowed terminal ileum. There is trace contrast staining in a meniscal pattern surrounding the presumed leading edge of the intussusception. The hypoattenuating structure noted along the leading edge of the intussusception present on the previous contrast study, measuring 3.2 x 3. 4 x 3.9 cm on the previous examination (coronal images 21 -33) is not as well demonstrated on this study without IV contrast. The area is similar in morphologic appearance with underlying density of 47. Further detailed evaluation for a leading edge mass is limited. No definite obstruction. PELVIS: Appendix: The appendix is not clearly delineated. Bladder: The bladder is moderately distended with excreted contrast. Reproductive: Unremarkable as visualized. ABDOMEN and PELVIS: Intraperitoneal space: Unremarkable. No free air. No significant fluid collection. Bones/joints: No acute fracture. No dislocation. Soft tissues: Unremarkable. Vasculature: Atherosclerotic calcification of the aorta. No abdominal aortic aneurysm. Lymph nodes: Unremarkable. No enlarged lymph nodes. IMPRESSION: The intussusception involving the ileocecal valve extending into the proximal ascending colon is again noted measuring a proximally 7.9 cm in length. There is oral contrast from the stomach throughout the small bowel with minimal contrast extending into the narrowed terminal ileum. There is trace contrast staining in a meniscal pattern surrounding the presumed leading edge of the intussusception, without evidence for high- grade obstruction. The hypoattenuating structure noted along the leading edge of the intussusception present on the previous contrast study, measuring 3.2 x 3.4 x 3.9 cm on the previous examination (coronal images 21 -33) is not as well demonstrated on this study without IV contrast. The area is similar in morphologic appearance with underlying density of 47. Further detailed evaluation for a leading edge mass is limited. Again recommend correlation with potential endoscopic findings. Electronically signed by: Dannie Solis MD 04/03/25 01:01 AM
[2025-04-03] MEDS: METOPROLOL TARTRATE 1 MG/ML VIAL IV SCH (03:54)
[2025-04-03 04:31] LABS: Hematocrit (blood only) 32.5 % (37.0-47.0); Hemoglobin 10.7 g/dl (12.0-16.0); Immature Granulocytes # (auto) 0.02 K/uL (0.01-0.20); Immature Granulocytes % (auto) 0.3 %; Mean Corpuscular Hemoglobin 26.7 pg (25.0-34.0); Mean Corpuscular Volume 81.0 fL (80.0-100.0); Platelet Count 169 K/uL (130-400); RDW Standard Deviation 60.3 fL (36.4-46.3); Red Blood Count 4.01 M/uL (4.20-5.40); White Blood Count 6.79 K/ul (4.8-10.8)
[2025-04-03 04:47] LABS: Anion Gap 6.0 (3-11); Blood Urea Nitrogen 14.0 mg/dl (6-23); Calcium 8.8 mg/dl (8.6-10.3); Carbon Dioxide 24.0 mmol/L (21-32); Chloride 108.0 mmol/L (98-107); Creatinine Clr Calc Pharmacy 32.5 ml/min; Glucose 84.0 mg/dl (70-99(Fasting)); Potassium 3.7 mmol/L (3.5-5.1); Sodium 138.0 mmol/L (136-145)
[2025-04-03 04:53] LABS: Anisocytosis Present; Ovalocytes 1+; Polychromasia 1+
--- NOTE | 2025-04-03 08:08 | Surgery Progress Note ---
Date of Service April 03, 2025 Assessment & Plan (1) Intussusception: Plan: Ileocolic intussusception of unknown etiology, recommend expiration Plan for robotic versus laparoscopic partial hemicolectomy, possible open hemicolectomy Risks of the procedure were discussed to include but not limited to bleeding, infection, anastomotic leak, ostomy, damage to surrounding structures, need for future more extensive surgery, and the risk of anesthesia Appreciate medicine care of this patient Hold anticoagulation Patient will discuss with her family (2) Essential hypertension: (3) Permanent atrial fibrillation: (4) Presence of permanent cardiac pacemaker: Admission and Anticipated Discharge Date Admission Date: April 02, 2025 Subjective 89-year-old female admitted overnight with intussusception. Repeat CT scan with oral contrast confirmed the presence of a 7 cm ileocolic intussusception with concern for a mass as a lead point. This morning she currently endorses no pain. Prior hysterectomy. On Eliquis for A-fib. Also has a pacer. Physical Exam Constitutional: WD/WN, vitals as above + thin Respiratory: normal respiratory effort, lungs clear to auscultation Cardiovascular: RRR, no murmur, no edema Gastrointestinal (Abdomen): normal bowel sounds, soft, nontender, no hepatosplenomegaly Inspection/Auscultation: + abdominal surgical scar Results & Data Vital Signs (Past 12 Hours) Vital Signs Temp Pulse Pulse Resp BP BP Pulse Ox 04/03/25 07:11 74 22 150/89 H 94 04/03/25 06:51 75 04/03/25 05:13 67 150/74 H 04/03/25 05:00 67 16 150/74 H 97 04/03/25 03:54 77 158/75 H 04/03/25 03:53 77 16 158/75 H 96 04/03/25 03:21 75 170/107 H 04/03/25 03:00 70 16 170/107 H 97 04/03/25 00:41 94 H 150/83 H 04/02/25 23:16 97 H 04/02/25 23:03 96 H 16 171/101 H 97 04/02/25 23:03 04/02/25 21:54 36.6 C 04/02/25 21:42 108 H 20 177/103 H 96 04/02/25 21:37 99 H 04/02/25 20:44 99 H 16 171/101 H 97 Pulse Ox O2 Del Method O2 Del Method 04/03/25 07:11 Room Air 04/03/25 06:51 04/03/25 05:13 04/03/25 05:00 Room Air 04/03/25 03:54 04/03/25 03:53 Room Air 04/03/25 03:21 04/03/25 03:00 Room Air 04/03/25 00:41 04/02/25 23:16 04/02/25 23:03 Room Air 04/02/25 23:03 98 Room Air 04/02/25 21:54 04/02/25 21:42 Room Air 04/02/25 21:37 04/02/25 20:44 Room Air Laboratory Results Laboratory Results - last 24 hr 04/02/25 04/02/25 04/02/25 17:50 17:52 18:10 WBC 7.95 RBC 4.25 Hgb 11.1 L Hct 34.3 L MCV 80.7 MCH 26.1 MCHC 32.4 RDW Std Deviation 59.8 H RDW Coeff of Alfredo 21.0 H Plt Count 190 MPV 12.0 Immature Gran % (Auto) 0.4 Neut % (Auto) 59.0 Lymph % (Auto) 28.6 [place] % (Auto) 10.3 Eos % (Auto) 0.9 Baso % (Auto) 0.8 Neut # (Auto) 4.70 Lymph # (Auto) 2.27 [place] # (Auto) 0.82 H Eos # (Auto) 0.07 Baso # (Auto) 0.06 Immature Gran # (Auto) 0.03 Polychromasia Poikilocytosis Present Anisocytosis Present Ovalocytes 1+ Acanthocytes (Spur) 1+ PT 11.4 INR 1.1 APTT 30 PTT Ratio 1.1 Sodium 140 Potassium 4.5 Chloride 106 Carbon Dioxide 20 L Anion Gap 14 H BUN 19 Creatinine 1.17 Est Cr Clr Drug Dosing 24.1 eGFR 44.88 BUN/Creatinine Ratio 16.2 Glucose 86 Lactate 1.4 Calcium 9.3 Total Bilirubin 0.6 AST 27 ALT 10 Alkaline Phosphatase 75 B-Natriuretic Peptide 98 Total Protein 6.4 Albumin 3.9 Globulin 2.5 Albumin/Globulin Ratio 1.6 Procalcitonin 0.02 Urine Color Urine Appearance Urine pH Ur Specific [place] Urine Protein Urine Glucose (UA) Urine Ketones Urine Blood Urine Nitrite Urine Bilirubin Urine Urobilinogen Ur Leukocyte Esterase Urine WBC (Auto) Urine RBC (Auto) U Hyaline Cast (Auto) U Epithel Cells (Auto) Urine Bacteria (Auto) Hyaline Casts Urine Comment Nasal Screen MRSA (PCR) Stl C. cayetanensis PCR Stool Rotavirus A PCR Stl Adenov F PCR Stool Astrovirus (PCR) Stool Campylobacter PCR Stool Cryptosporidium PCR Stl E.coli Shiga Tox PCR Stool E coli O157 PCR Stl Enterotoxigenic E PCR Stool EPEC (PCR) Stool EAEC (PCR) Stl E. histolytica PCR Stool Giardia Lamblia PCR Stool Salmonella PCR Stool Sapovirus (PCR) Stl P. shigelloides PCR Stl Shigella/EIEC PCR St Y.enterocolitica PCR Stool Vibrio (PCR) Stl Vibrio cholerae PCR Stl Norovirus GI/GII PCR 04/02/25 04/02/25 04/03/25 22:18 Unknown 03:49 WBC 6.79 RBC 4.01 L Hgb 10.7 L Hct 32.5 L MCV 81.0 MCH 26.7 MCHC 32.9 RDW Std Deviation 60.3 H RDW Coeff of Alfredo 20.7 H Plt Count 169 MPV 11.8 Immature Gran % (Auto) 0.3 Neut % (Auto) 60.2 Lymph % (Auto) 26.5 [place] % (Auto) 10.0 Eos % (Auto) 2.4 Baso % (Auto) 0.6 Neut # (Auto) 4.09 Lymph # (Auto) 1.80 [place] # (Auto) 0.68 H Eos # (Auto) 0.16 Baso # (Auto) 0.04 Immature Gran # (Auto) 0.02 Polychromasia 1+ Poikilocytosis Anisocytosis Present Ovalocytes 1+ Acanthocytes (Spur) PT INR APTT PTT Ratio Sodium 138 Potassium 3.7 Chloride 108 H Carbon Dioxide 24 Anion Gap 6 BUN 14 Creatinine 0.87 D Est Cr Clr Drug Dosing 32.5 eGFR 64.04 BUN/Creatinine Ratio 16.1 Glucose 84 Lactate Calcium 8.8 Total Bilirubin AST ALT Alkaline Phosphatase B-Natriuretic Peptide Total Protein Albumin Globulin Albumin/Globulin Ratio Procalcitonin Urine Color Yellow Urine Appearance Clear Urine pH 6.5 Ur Specific [place] 1.019 Urine Protein Trace H Urine Glucose (UA) Negative Urine Ketones Trace H Urine Blood Negative Urine Nitrite Negative Urine Bilirubin Negative Urine Urobilinogen Negative Ur Leukocyte Esterase Negative Urine WBC (Auto) 0-5 Urine RBC (Auto) 0-2 U Hyaline Cast (Auto) 11-20 H U Epithel Cells (Auto) 0-2 Urine Bacteria (Auto) None Seen Hyaline Casts Present A Urine Comment Nasal Screen MRSA (PCR) Negative Stl C. cayetanensis PCR Stool Rotavirus A PCR Stl Adenov F PCR Stool Astrovirus (PCR) Stool Campylobacter PCR Stool Cryptosporidium PCR Stl E.coli Shiga Tox PCR Stool E coli O157 PCR Stl Enterotoxigenic E PCR Stool EPEC (PCR) Stool EAEC (PCR) Stl E. histolytica PCR Stool Giardia Lamblia PCR Stool Salmonella PCR Stool Sapovirus (PCR) Stl P. shigelloides PCR Stl Shigella/EIEC PCR St Y.enterocolitica PCR Stool Vibrio (PCR) Stl Vibrio cholerae PCR Stl Norovirus GI/GII PCR 04/03/25 04:12 WBC RBC Hgb Hct MCV MCH MCHC RDW Std Deviation RDW Coeff of Alfredo Plt Count MPV Immature Gran % (Auto) Neut % (Auto) Lymph % (Auto) [place] % (Auto) Eos % (Auto) Baso % (Auto) Neut # (Auto) Lymph # (Auto) [place] # (Auto) Eos # (Auto) Baso # (Auto) Immature Gran # (Auto) Polychromasia Poikilocytosis Anisocytosis Ovalocytes Acanthocytes (Spur) PT INR APTT PTT Ratio Sodium Potassium Chloride Carbon Dioxide Anion Gap BUN Creatinine Est Cr Clr Drug Dosing eGFR BUN/Creatinine Ratio Glucose Lactate Calcium Total Bilirubin AST ALT Alkaline Phosphatase B-Natriuretic Peptide Total Protein Albumin Globulin Albumin/Globulin Ratio Procalcitonin Urine Color Urine Appearance Urine pH Ur Specific [place] Urine Protein Urine Glucose (UA) Urine Ketones Urine Blood Urine Nitrite Urine Bilirubin Urine Urobilinogen Ur Leukocyte Esterase Urine WBC (Auto) Urine RBC (Auto) U Hyaline Cast (Auto) U Epithel Cells (Auto) Urine Bacteria (Auto) Hyaline Casts Urine Comment Nasal Screen MRSA (PCR) Stl C. cayetanensis PCR Cancelled Stool Rotavirus A PCR Cancelled Stl Adenov F PCR Cancelled Stool Astrovirus (PCR) Cancelled Stool Campylobacter PCR Cancelled Stool Cryptosporidium PCR Cancelled Stl E.coli Shiga Tox PCR Cancelled Stool E coli O157 PCR Cancelled Stl Enterotoxigenic E PCR Cancelled Stool EPEC (PCR) Cancelled Stool EAEC (PCR) Cancelled Stl E. histolytica PCR Cancelled Stool Giardia Lamblia PCR Cancelled Stool Salmonella PCR Cancelled Stool Sapovirus (PCR) Cancelled Stl P. shigelloides PCR Cancelled Stl Shigella/EIEC PCR Cancelled St Y.enterocolitica PCR Cancelled Stool Vibrio (PCR) Cancelled Stl Vibrio cholerae PCR Cancelled Stl Norovirus GI/GII PCR Cancelled Diagnostic Findings Both CT scans personally viewed and interpreted, agree with the assessment of ileocolic intussusception. Chest X-Ray 04/02/25 17:54 Clinical History: Fever Technique: A frontal view of the chest was obtained Findings: There are no definite pulmonary infiltrates. The heart size is at the upper limit of normal. No definite pneumothorax is seen. There are possible small bilateral pleural effusions No fracture is noted. There is a left chest wall pacemaker device Impression: Possible small bilateral pleural effusions Electronically signed by Jethro Streeter 04-02-2025 6:47 PM Abdomen/Pelvis CT 04/02/25 17:56 CT of the abdomen pelvis withIV contrast Technique: Postcontrast axial images of the abdomen and pelvis. Coronal and sagittal reformatted images made available for review No comparison Findings: Small bilateral pleural effusions right greater than left. Coronary artery calcifications. Cardiomegaly. Pericardial effusion. There are few scattered subcentimeter hypodensities within the liver too small for further density characterization. Gallbladder is distended but otherwise unremarkable. There is a small cyst within the tail of the pancreas measuring 1 cm. Left adrenal gland thickening. Extensive calcification of the abdominal aorta and its branch vessels. There is no free air or intestinal obstruction. There is an intussusception involving the ileocecal valve excessive agitating itself into the proximal ascending colon. This is not resulted in significant bowel obstruction. Uterus is surgically absent. Urinary bladder is unremarkable. Bone windows demonstrate no focal abnormality Impression Ileocecal valve intussusception. Underlying mass cannot be excluded. Direct visual inspection is recommended for further evaluation. Remaining solid abdominal organs are unremarkable in appearance. Electronically signed by Isma Maria 04-02-2025 8:19 PM Abdomen/Pelvis CT 04/02/25 21:08 Exam(s): CT ABDOMEN + PELVIS With Contrast Oral - High Density Amt: 30 ML GASTRO EXAM: CT Abdomen and Pelvis With Intravenous Contrast CLINICAL HISTORY: intussusception; oral contrast only. TECHNIQUE: Axial computed tomography images of the abdomen and pelvis with intravenous contrast. CTDI is 7.57 mGy and DLP is 346.67 mGy-cm. Automated exposure control was utilized for the study. A dose lowering technique was utilized adhering to the principles of ALARA. CONTRAST: Patient received 30 ML GASTRO of Oral - High Density contrast COMPARISON: CT abdomen and pelvis performed 1932 hours FINDINGS: Lung bases: Unremarkable. No mass. No consolidation. Pleural space: Trace right pleural effusion, similar. Heart: Cardiomegaly. Moderate pericardial effusion, similar. ABDOMEN: Liver: Unremarkable. No mass. Gallbladder and bile ducts: Unremarkable. No calcified stones. No ductal dilation. Pancreas: Unremarkable. No mass. No ductal dilation. Spleen: Unremarkable. No splenomegaly. Adrenals: Unremarkable. No mass. Kidneys and ureters: Excreted contrast in the renal collecting systems bilaterally. No hydronephrosis. Stomach and bowel: The intussusception involving the ileocecal valve extending into the proximal ascending colon is again noted measuring a proximally 7.9 cm in length. There is oral contrast from the stomach throughout the small bowel with minimal contrast extending into the narrowed terminal ileum. There is trace contrast staining in a meniscal pattern surrounding the presumed leading edge of the intussusception. The hypoattenuating structure noted along the leading edge of the intussusception present on the previous contrast study, measuring 3.2 x 3. 4 x 3.9 cm on the previous examination (coronal images 21 -33) is not as well demonstrated on this study without IV contrast. The area is similar in morphologic appearance with underlying density of 47. Further detailed evaluation for a leading edge mass is limited. No definite obstruction. PELVIS: Appendix: The appendix is not clearly delineated. Bladder: The bladder is moderately distended with excreted contrast. Reproductive: Unremarkable as visualized. ABDOMEN and PELVIS: Intraperitoneal space: Unremarkable. No free air. No significant fluid collection. Bones/joints: No acute fracture. No dislocation. Soft tissues: Unremarkable. Vasculature: Atherosclerotic calcification of the aorta. No abdominal aortic aneurysm. Lymph nodes: Unremarkable. No enlarged lymph nodes. IMPRESSION: The intussusception involving the ileocecal valve extending into the proximal ascending colon is again noted measuring a proximally 7.9 cm in length. There is oral contrast from the stomach throughout the small bowel with minimal contrast extending into the narrowed terminal ileum. There is trace contrast staining in a meniscal pattern surrounding the presumed leading edge of the intussusception, without evidence for high- grade obstruction. The hypoattenuating structure noted along the leading edge of the intussusception present on the previous contrast study, measuring 3.2 x 3.4 x 3.9 cm on the previous examination (coronal images 21 -33) is not as well demonstrated on this study without IV contrast. The area is similar in morphologic appearance with underlying density of 47. Further detailed evaluation for a leading edge mass is limited. Again recommend correlation with potential endoscopic findings. Electronically signed by: Dannie Solis MD 04/03/25 01:01 AM PG Care Time/CCT Total # of Minutes Spent Total Time Spent with Patient: Total time spent is greater than 50% in coordination of care (as documented) at patient's floor/unit and/or counseling patient: Coding Level of Care Code 61665 SUB INP/OBS CARE 2/35MIN Diagnoses Intussusception K56.1 Essential hypertension I10 Permanent atrial fibrillation I48.21 Presence of permanent cardiac pacemaker Z95.0
[2025-04-03] MEDS: PANTOprazole 40 MG/10 ML SYR IV SCH (08:11)
[2025-04-03] MEDS ORDERED: SERTRALINE HCL 50 MG TABLET PO SCH (09:00)
[2025-04-03] MEDS ORDERED: LEVOTHYROXINE SODIUM 100 MCG TABLET PO SCH (09:00)
[2025-04-03] MEDS ORDERED: METOPROLOL TARTRATE 50 MG TAB PO SCH (09:00)
[2025-04-03] MEDS ORDERED: LORATADINE 10 MG TAB PO SCH (09:00)
[2025-04-03] MEDS ORDERED: ROCURONIUM BROMIDE 10 MG/ML 5 ML VIAL IV ONE ×2 (10:20→13:55)
[2025-04-03] MEDS ORDERED: PROPOFOL IV EMULSION 10 MG/ML 20 ML VIAL IV ONE (10:20)
[2025-04-03] MEDS ORDERED: PHENYLEPHRINE HCL 10 MG/ML VIAL ONE (10:20)
[2025-04-03] MEDS ORDERED: DEXAMETHASONE SOD INJ 4 MG/ML VIAL ONE (10:20)
[2025-04-03] MEDS ORDERED: LIDOCAINE 2% 2 ML VIAL/AMP(20MG/ML) INFIL ONE (10:20)
[2025-04-03] MEDS ORDERED: ONDANSETRON INJ 2 MG/ML 2 ML VIAL ONE (10:20)
--- NOTE | 2025-04-03 10:38 | Anesthesiology Consultation ---
Date of Service April 03, 2025 Assessment & Plan Chart Review Chart Review: Acceptable Risk for Surgery Consults Requested none History Surgery Operation Date: 04/03/25 07:00 Proposed Procedures p Robotic Laparoscopic Partial Colectomy - Mike Melissa DO, FACS Height/Weight Height: 5 ft 5.5 in Weight: 45.359 kg Allergies Allergy/AdvReac Type Severity Reaction Status Date / Time oxycodone AdvReac Intermediate HALLUCINATI Verified 04/02/25 21:05 ONS morphine AdvReac Unknown DELIRIUM Verified 04/02/25 21:05 Medications Home Medications Medication Instructions Recorded Confirmed Last Taken omeprazole 40 mg capsule,delayed 40 mg PO QAM 05/06/18 04/02/25 08/30/24 release atorvastatin 20 mg tablet 20 mg PO HS 11/16/18 04/02/25 08/30/24 docusate sodium 100 mg tablet 100 mg PO DAILY PRN cnstipation 11/16/18 04/02/25 08/30/24 sertraline 50 mg tablet 50 mg PO QAM 11/16/18 04/02/25 08/30/24 donepezil 5 mg tablet 5 mg PO HS 02/09/22 04/02/25 08/30/24 magnesium oxide 400 mg PO QAM 05/13/24 04/02/25 08/30/24 apixaban 2.5 mg tablet (Eliquis) 2.5 mg PO BID 08/31/24 04/02/25 08/30/24 famotidine 20 mg tablet 20 mg PO HS 08/31/24 04/02/25 08/30/24 levothyroxine 100 mcg tablet 100 mcg PO QAM 08/31/24 04/02/25 08/30/24 Cranberry 4200mg With Vit C 2 softgel PO DAILY 10/10/24 04/02/25 Unknown acetaminophen 500 mg tablet 1,000 mg PO .EVERY 4-6 HR PRN Flu 10/10/24 04/02/25 Unknown Symptoms cyanocobalamin (vitamin B-12) 5,000 mcg sublingual DAILY 10/10/24 04/02/25 Unknown 2,500 mcg sublingual tablet (Vitamin B-12) furosemide 20 mg tablet (Lasix) 20 mg PO DAILY PRN weight gain of 10/10/24 04/02/25 Unknown 3 lbs lidocaine 4 % topical patch 1 patch topical DAILY 10/10/24 04/02/25 Unknown loratadine 10 mg tablet 10 mg PO DAILY 10/10/24 04/02/25 Unknown melatonin 10 mg chewable tablet 10 mg PO HS 10/10/24 04/02/25 Unknown nitroglycerin 0.4 mg sublingual 0.4 mg sublingual UD PRN Chest Pain 10/10/24 04/02/25 Unknown tablet (Nitrostat) ondansetron 4 mg disintegrating 4 mg PO .EVERY 6-8 HOURS PRN 10/10/24 04/02/25 Unknown tablet Nausea And Vomiting bisacodyl 10 mg rectal suppository 10 mg WA DAILY PRN Constipation 04/02/25 04/02/25 Unknown diltiazem HCl 180 mg 180 mg PO DAILY 04/02/25 04/02/25 Unknown capsule,extended release 24 hr ferrous sulfate 325 mg (65 mg 325 mg PO DAILY 04/02/25 04/02/25 Unknown iron) tablet hydralazine 25 mg tablet 25 mg PO TID 04/02/25 04/02/25 Unknown lutein 10 mg tablet 0 mg PO DAILY 04/02/25 04/02/25 Unknown menthol 0.44 %-zinc oxide 20.6 % 1 applic topical DAILY PRN 04/02/25 04/02/25 Unknown topical ointment (Calmoseptine) irritation/breakdown metoprolol tartrate 50 mg tablet 50 mg PO BID 04/02/25 04/02/25 Unknown mirtazapine 7.5 mg tablet 7.5 mg PO HS 04/02/25 04/02/25 Unknown Active Medications Generic Name Dose Route Start Last Admin Trade Name Gem PRN Reason Stop Dose Admin Lactated Ringer's 1,000 mls @ 125 mls/hr 04/02/25 22:00 04/03/25 00:46 Lr IV 04/03/25 13:59 125 mls/hr .Q8H ANDRA Administration Pantoprazole Sodium 40 mg in 10 mls @ 5 mls/min 04/03/25 09:00 04/03/25 08:11 Protonix IV 05/03/25 08:59 5 mls/min DAILY ANDRA Administration Metoprolol Tartrate 5 mg 04/03/25 04:00 04/03/25 08:12 Metoprolol Tartrate 1 Mg/Ml Vial IV 05/03/25 03:59 5 mg Q4 ANDRA Administration NPO Date Last Intake of Fluids: 04/02/25 Time Last Intake of Fluids: 22:00 Date Last Intake of Solids: 04/02/25 Time Last Intake of Solids: 08:00 Past Medical History Medical History Aspiration into lower respiratory tract Periorbital cellulitis of left eye Hyperlipidemia LDL goal <70 Thoracic back pain CVA (cerebral vascular accident) Epidural hematoma Weight loss, unintentional Tricuspid regurgitation Tachy-jazmine syndrome Pulmonary hypertension Dyslipidemia Cerebrovascular disease Benign hypertension Aortic regurgitation Anxiety disorder Headache Past Family History Family History Other Family history non-contributory Past Surgical History Surgical History H/O cervical spine surgery "cervical decompression with evacuation of cervical epidural hematoma 09/22/2012" S/P tonsillectomy H/O: hysterectomy History of bilateral tubal ligation History of appendectomy Social History Smoking Status: Never smoker Do You Dip or Chew Tobacco: No Hx Alcohol Use: No Hx Substance Use: No substance use type: does not use Physical Exam Vital Signs Last Vital Signs Temp 36.5 C 04/03/25 09:34 Pulse 82 04/03/25 09:34 Resp 18 04/03/25 09:34 BP 187/93 H 04/03/25 09:34 Pulse Ox 95 04/03/25 09:34 O2 Del Method Room Air 04/03/25 09:34 Testing Laboratory Results 04/03/25 03:49 04/03/25 03:49 PT 11.4 Seconds (9.0-12.0) 04/02/25 17:52 INR 1.1 (0.9-1.1) 04/02/25 17:52 APTT 30 Seconds (21-31) 04/02/25 17:52 Urine Color Yellow 04/02/25 Unknown Urine Appearance Clear (Clear) 04/02/25 Unknown Urine pH 6.5 (4.5-7.5) 04/02/25 Unknown Ur Specific [place] 1.019 (1.000-1.030) 04/02/25 Unknown Urine Protein Trace (Negative) H 04/02/25 Unknown Urine Glucose (UA) Negative (Negative) 04/02/25 Unknown Urine Ketones Trace (Negative) H 04/02/25 Unknown Urine Nitrite Negative (Negative) 04/02/25 Unknown Ur Leukocyte Esterase Negative (Negative) 04/02/25 Unknown Urine WBC (Auto) 0-5 /hpf (0-5) 04/02/25 Unknown Urine RBC (Auto) 0-2 /hpf (0-2) 04/02/25 Unknown U Hyaline Cast (Auto) 11-20 /lpf (0-2) H 04/02/25 Unknown U Epithel Cells (Auto) 0-2 /hpf (0-2) 04/02/25 Unknown Urine Bacteria (Auto) None Seen (None Seen) 04/02/25 Unknown
--- NOTE | 2025-04-03 11:17 | History & Physical Bridge Note ---
Date of Service April 03, 2025 History & Physical Bridge Note I have examined the patient, reviewed the History & Physical and in the interval since the performance of the History & Physical I have noted the following changes of clinical significance: no changes noted
[2025-04-03] MEDS ORDERED: cefOXitin SOD 1,000 MG VIAL ONE (11:47)
[2025-04-03] MEDS: cefOXitin 2,000 MG/60 ML BAG IV STA (12:15)
[2025-04-03] MEDS ORDERED: METOPROLOL TARTRATE 1 MG/ML VIAL IV ONE (12:22)
[2025-04-03] MEDS ORDERED: ALBUMIN HUMAN 5% 12.5 GM/250 ML VIAL IV ONE (13:34)
[2025-04-03] MEDS ORDERED: ACETAMINOPHEN 1000 MG/100 ML IV IV ONE (13:34)
[2025-04-03] MEDS ORDERED: HYDROmorphone INJ 2 MG/ML SYR/VIAL ONE (13:59)
[2025-04-03] MEDS ORDERED: SUGAMMADEX SODIUM 200 MG/2 ML VIAL IV ONE (14:20)
--- NOTE | 2025-04-03 14:24 | Post Operative Brief Note ---
PG Immediate Post Op with CF Date of Surgery April 03, 2025 Pre & Post Diagnosis Operation Date: 04/03/25 07:00 Pre-Op Diagnosis: Ileocolic intussusception Post-Op Diagnosis: Ileocolic intussusception, cecal mass I identified the patient and participated in the time-out.: Yes Procedure Operation Date: 04/03/25 07:00 Actual Procedures p Robotic Assisted Laparoscopic Right Hemicolectomy(Right) - Mike Melissa DO, FACS Surgeon Mike Melissa DO, LELAND Shirt Line Operator Joslyn Vazquez Estimated Blood Loss 25 Findings Consistent with Post-Op Diagnosis Diagnostic laparoscopy performed,. Intussusception may have resolved. Robotic assisted right hemicolectomy performed. Lateral to medial mobilization of the right colon and ileum performed robotically. Converted to low midline incision, thickened cecum and suspected palpable mass at the ileocolic valve. High ligation of the ileocolic vascular pedicle. [id number] functional end-to-end ileocolic anastomosis performed. Exparel injected. Specimens Specimen Description: A: Right Hemicolectomy Drains Mercedes Catheter (mrecedes inserted prior to start of procedure by: Antionette Bright. One attempt, no difficulty. ) Anesthesia Type General Complications none Disposition Accompanied Patient To Recovery: No Disposition: Recovery Room
[2025-04-03] MEDS: BUPIVACAINE 0.5 % 5 MG/1 ML MPF 30ML VIAL ONE (14:28)
[2025-04-03] MEDS: BUPIVACAINE LIPOSOME 1.3% 266 MG/20 ML VIAL ONE (14:28)
--- NOTE | 2025-04-03 14:35 | Cancer Operative Report ---
Post Operative Report Pre & Post Diagnosis Operation Date: 04/03/25 07:00 Pre-Op Diagnosis: Ileocolic intussusception Post-Op Diagnosis: Ileocolic intussusception, cecal mass I identified the patient and participated in the time-out.: Yes Procedure Operation Date: 04/03/25 07:00 Actual Procedures p Robotic Assisted Laparoscopic Right Hemicolectomy(Right) - Mike Melissa DO, [facility] Mike Melissa DO, [facility] Director Joslyn Vazquez Estimated Blood Loss 25 Findings Consistent with Post-Op Diagnosis Diagnostic laparoscopy performed,. Intussusception may have resolved. Robotic assisted right hemicolectomy performed. Lateral to medial mobilization of the right colon and ileum performed robotically. Converted to low midline incision, thickened cecum and suspected palpable mass at the ileocolic valve. High ligation of the ileocolic vascular pedicle. [id number] functional end-to-end ileocolic anastomosis performed. Exparel injected. Specimens Right hemicolectomy Anesthesia Type General Complications none Disposition Accompanied Patient To Recovery: No Disposition: Recovery Room Indications 89-year-old female presented with abdominal pain, CT scan showed ileocolic intussusception, repeat CT scan with oral contrast confirmed. Suspicion of a small enhancing lesion in the cecum. Plan for robotic versus laparoscopic right hemicolectomy, possible open hemicolectomy. The risks of the procedure were discussed, all questions were answered, and the patient agreed to proceed with surgery as planned. Description of Procedure The patient had an antibiotic infused bowel prep overnight. The patient was properly identified, consented, and taken to the operating room where she was placed in the supine position. General endotracheal anesthesia was induced. SCDs and a safety belt were placed. Preoperative antibiotics were administered. A Alcazar catheter was placed. The patient's abdomen was prepped and draped in the standard sterile fashion. Surgical timeout was performed and all parties were in agreement that this was the correct patient and procedure to be performed and we continued as planned. An incision was made in the left upper quadrant and the Veress needle was inserted. Saline drop test confirmed entry into the abdomen. The abdomen was insufflated with carbon dioxide which the patient tolerated without incident. Veress needle was removed and the abdomen was entered using a 5 mm 30 degree scope and an 8 mm robotic port utilizing the Optiview technique. The trocar was removed and the abdomen explored. No damage from initial Veress needle or trocar placement was noted. There were some adhesions of the omentum and the right lateral abdomen right lower quadrant. Otherwise no significant abnormalities in the 4 quadrants of the abdomen. Next, 8 mm robotic ports were then placed in the left lower quadrant in the right lower quadrant. The patient was placed in the Trendelenburg position and rotated towards the left. The small bowel was swept to the left upper quadrant. The distal ileum and right colon were visualized. It appeared that the intussusception may have resolved. During palpation with the laparoscopic instruments it appeared that there may be a small mass in the cecum. The robot was then docked and robotic instruments were inserted. The right colon was then mobilized from lateral to medial approach. The omental adhesions to the abdominal wall were taken down with sharp dissection and cautery. The white line of Toldt was then mobilized along the right side up to the hepatic flexure. The omentum was taken off of the transverse colon and the hepatic flexure was mobilized. Then proceeded to mobilize portions of the terminal ileum. There was some scarring of the ileum into the pelvis from prior surgery. This was taken down with sharp dissection. Once the colon and small bowel look like they would easily reach to the anterior abdominal wall, I elected to perform an extracorporeal anastomosis. The instruments and camera were removed and the robot was undocked. An infraumbilical vertical midline incision was then made for a total length of approximately 7 cm. The wound protector was placed within the wound after the fascia was opened and then the colon was exteriorized. The colon reached easily as did the small bowel. The cecum was again palpated and did appear thickened and there was a suspected mass in the terminal ileum or cecum. A window was created in the mesentery and the ileum approximately 20 cm from the IC valve, and the small bowel was divided using a blue loaded BELLE stapler. The colon was then divided using a blue loaded BELLE stapler in the region of the proximal transverse colon. The mesentery was then divided using the Ligasure. A high ligation of the ileocolic vascular pedicle was performed. The pedicle was clamped with a Agata close to its origin and divided with the LigaSure. A suture ligature was then performed with a 2-0 silk suture. Hemostasis appeared excellent. The right colic artery was diminutive but was divided near its origin during this portion of the procedure. The specimen was excised and passed off the table. We then proceeded to create a [id number] functional end-to-end ileocolic anastomosis. Towels were laid around the incision. The corners of the staple lines on the antimesenteric border of both the ileum and colon were excised creating enterotomies. A 80 mm blue loaded BELLE stapler was placed in each enterotomy and fired to create the anastomosis. The prior staple lines were then completely excised using sequential firings of a blue loaded BELLE stapler. The staple line was then reinforced with 3-0 silk Lembert sutures. There was no evidence of a leak, and the anastomosis appeared patent. The mesenteric defect was closed with a running 2-0 Vicryl suture. Hemostasis appeared to be good and the anastomosis appeared to have no twist in it. The anastomosis was allowed to drop back into the abdomen. The anastomosis appeared to lay well on the right side of the abdomen and appeared to have good blood supply. The fascia and skin of the midline incision was injected with Exparel mixed with 0.5% Marcaine. The fascia was closed with a running 0 PDS suture. The wound was irrigated and the incision was then closed with ally. The remaining port sites were closed with ally. Sterile dressings were placed. The patient was extubated in the operating room and taken to the PACU where she recovered without apparent incident. All sponge, instrument, and needle counts were correct. The patient tolerated the procedure well. The colon specimen was sent to Pathology. The physician's product safety technical assistant was present and scrubbed for the entirety of the case. She was critical in positioning the patient, prepping and draping, retraction and exposure, driving the laparoscope, exchange of the robotic instruments, resection of the specimen and creation of the anastomosis, closure the incisions, and placement of the dressings. Colon Resection Operation performed with curative intent: Yes Tumor Location: Cecum Extent of colon and vascular resection: Right hemicolectomy ileocolic, R colic (if present) I attest to the content of the Intraoperative Record and any orders documented therein. Any exceptions are noted below.
[2025-04-03] MEDS ORDERED: ATROPINE SULFATE 0.1 MG/ML 10ML SYR IV PRN (14:53)
[2025-04-03] MEDS ORDERED: ONDANSETRON INJ 2 MG/ML 2 ML VIAL IV PRN (14:53)
[2025-04-03] MEDS: LABETALOL HCL IV 5 MG/ML 20ML IV PRN (15:01)
--- NOTE | 2025-04-03 15:27 | Anesthesiology Progress Note ---
Date of Service April 03, 2025 Anesthesia Post Procedure Vital Signs Vital Signs: Temp Pulse Pulse Pulse Resp BP BP 04/03/25 15:10 89 19 177/83 H 04/03/25 15:01 99 H 202/71 H 04/03/25 15:00 99 H 15 192/80 H 04/03/25 14:50 92 H 15 157/79 H 04/03/25 14:41 36.2 C L 101 H 16 195/92 H 04/03/25 09:34 04/03/25 09:34 36.5 C 82 18 04/03/25 08:12 80 166/99 H 04/03/25 07:11 74 22 150/89 H 04/03/25 06:51 75 04/03/25 05:13 67 150/74 H 04/03/25 05:00 67 16 150/74 H 04/03/25 03:54 77 158/75 H 04/03/25 03:53 77 16 158/75 H 04/03/25 03:21 75 170/107 H 04/03/25 03:00 70 16 170/107 H 04/03/25 00:41 94 H 150/83 H 04/02/25 23:16 97 H 04/02/25 23:03 96 H 16 171/101 H 04/02/25 23:03 04/02/25 21:54 36.6 C 04/02/25 21:42 108 H 20 177/103 H 04/02/25 21:37 99 H 04/02/25 20:44 99 H 16 171/101 H 04/02/25 20:00 97 H 30 H 144/93 H 04/02/25 18:20 114 H 18 127/75 04/02/25 17:47 106 H 04/02/25 17:30 113 H 20 134/69 BP BP Pulse Ox Pulse Ox O2 Del Method O2 Del Method O2 Flow Rate 04/03/25 15:10 177/83 H 96 Nasal Cannula 3 04/03/25 15:01 04/03/25 15:00 214/101 H 96 Oxymask 8 04/03/25 14:50 209/73 H 97 Oxymask 8 04/03/25 14:41 217/80 H 96 Oxymask 8 04/03/25 09:34 Room Air 04/03/25 09:34 187/93 H 95 Room Air 08/12/25 08:12 04/03/25 07:11 94 Room Air 04/03/25 06:51 04/03/25 05:13 04/03/25 05:00 97 Room Air 04/03/25 03:54 04/03/25 03:53 96 Room Air 04/03/25 03:21 04/03/25 03:00 97 Room Air 04/03/25 00:41 04/02/25 23:16 04/02/25 23:03 97 Room Air 04/02/25 23:03 98 Room Air 04/02/25 21:54 04/02/25 21:42 96 Room Air 04/02/25 21:37 04/02/25 20:44 97 Room Air 04/02/25 20:00 95 Room Air 04/02/25 18:20 96 Room Air 04/02/25 17:47 04/02/25 17:30 98 Room Air Transfer of Care Handoff Completed per policy Notes Mental Status: alert / awake / arousable Patient Amnestic to Procedure: Yes Nausea / Vomiting: adequately controlled Pain: adequately controlled Airway Patency, RR, SpO2: stable & adequate BP & HR: stable & adequate Hydration State: stable & adequate Anesthetic Complications: no major complications apparent and Pt Satisfied with anesthetic care
[2025-04-03] MEDS ORDERED: HYDROmorphone INJ 0.5 MG/0.5 ML SYR IV PRN (16:11)
[2025-04-03] MEDS: LABETALOL HCL IV 5 MG/ML 20ML IV ONE (16:26)
[2025-04-03] MEDS: ACETAMINOPHEN 1,000 MG/100 ML VIAL IV SCH (17:17)
[2025-04-03] MEDS: cefOXitin 2,000 MG in DEXTROSE 5 % MINI-B 50 ML IV SCH (17:36)
--- NOTE | 2025-04-03 19:09 | Hospitalist Progress Note ---
Date of Service April 03, 2025 Assessment & Plan (1) Intussusception, ileocecal: (2) Low grade fever: (3) Permanent atrial fibrillation: (4) Diarrhea: Plan Ms. Monroy is an 89 y.o. F with PMHx of afib, s/p permanent cardiac pacemaker, HFpEF, stroke, HTN, GERD, hypothyroidism, peripheral neuropathy, and depression who presents to the hospital due to low grade fever and diarrhea with abdominal pain. She was found to have an ileocecal valve intussusception and was taken for right hemicolectomy on the morning of 04/03. #Diarrhea/Intussusception/cecal mass-appreciate general surgery consultation and management now s/p right hemicolectomy - Postop care as per surgery with prophylactic antibiotics with cefoxitin - Continue IV fluids, clear liquids diet - Stool Biofire ordered on admission is pending -Follow BMP and CBC in AM - Pain control with IV Dilaudid and p.o. tramadol, Tylenol as needed #Fever- Likely inflammatory reaction, afebrile here thus far. No leukocytosis and procalcitonin negative no leukocytosis and procalcitonin negative. UA negative, Chest X-ray negative for infection, showed possible bilateral pleural effusions -Follow for signs of infection # Permanent Afib/permanent pacemaker/history of stroke-with some tachycardia postoperatively as has not received beta-shira today - Hold home Eliquis due to recent surgery - Holding home p.o. statin - Continue Lopressor IV scheduled -Monitor on telemetry #HTN-BPs are elevated due to not receiving usual oral medications -Continue scheduled Lopressor IV 5mg q4 with hold parameters - Add on as needed hydralazine -Holding home p.o. metoprolol, diltiazem, Lasix, hydralazine #GERD - Protonix IV, holding home p.o. famotidine - Zofran PRN #Cognitive impairment-hold home donepezil #Depression-no acute issues - Holding home sertraline, mirtazapine, melatonin until p.o. intake tolerated DVT prophylaxis-SCDs, eventually add SQ Lovenox Disposition-continued stay in PCU Admission and Anticipated Discharge Date Admission Date: April 02, 2025 Subjective Patient seen after returning from hemicolectomy and is very drowsy but does wake up. Asks me "is the surgery over?" Denies pain. Physical Exam Constitutional: WD/WN, vitals as above Respiratory: normal respiratory effort, lungs clear to auscultation Cardiovascular: Rate/Rhythm: + tachycardic and + irregularly irregular Heart Sounds: no murmur Extremities: no edema Gastrointestinal (Abdomen): Inspection/Auscultation: + hypoactive bowel sounds; + abdomen abnormal to inspection (Abdominal dressing in place clean dry and intact) and abdomen not distended Percussion/Palpation: + abdomen tender (Mild TTP around incision) and abdomen soft; no guarding Genitourinary: + abnormal external appearance (Alcazar ca theter in place) Results & Data Results & Data Vital Signs (Past 12 Hours) Vital Signs Temp Pulse Pulse Pulse Resp BP BP 04/03/25 18:24 36.4 C L 81 14 150/71 H 04/03/25 17:40 36.5 C 85 14 131/69 04/03/25 17:37 83 131/69 04/03/25 17:09 101 H 132/66 04/03/25 16:36 36.5 C 93 H 18 125/52 L 04/03/25 16:15 36.5 C 83 16 138/64 04/03/25 15:55 98 H 04/03/25 15:55 04/03/25 15:55 36.4 C L 87 16 164/76 H 04/03/25 15:30 79 18 168/94 H 04/03/25 15:20 36.4 C L 75 18 186/93 H 04/03/25 15:10 89 19 177/83 H 04/03/25 15:01 99 H 202/71 H 04/03/25 15:00 99 H 15 192/80 H 04/03/25 14:50 92 H 15 157/79 H 04/03/25 14:41 36.2 C L 101 H 16 195/92 H 04/03/25 09:34 04/03/25 09:34 36.5 C 82 18 04/03/25 08:12 80 166/99 H 04/03/25 07:11 74 22 150/89 H BP BP Pulse Ox O2 Del Method O2 Flow Rate 04/03/25 18:24 95 Nasal Cannula 1 04/03/25 17:40 96 Nasal Cannula 1 04/03/25 17:37 04/03/25 17:09 08/12/25 16:36 98 Nasal Cannula 2 04/03/25 16:15 97 Nasal Cannula 2 04/03/25 15:55 04/03/25 15:55 Nasal Cannula 2 04/03/25 15:55 96 Nasal Cannula 3 04/03/25 15:30 98 Nasal Cannula 3 04/03/25 15:20 95 Nasal Cannula 3 04/03/25 15:10 177/83 H 96 Nasal Cannula 3 04/03/25 15:01 04/03/25 15:00 214/101 H 96 Oxymask 8 04/03/25 14:50 209/73 H 97 Oxymask 8 04/03/25 14:41 217/80 H 96 Oxymask 8 04/03/25 09:34 Room Air 04/03/25 09:34 187/93 H 95 Room Air 04/03/25 08:12 04/03/25 07:11 94 Room Air Laboratory Results CBC, BMP, BNP, lactate, procalcitonin, UA, lactate, LFTs reviewed PG Care Time/CCT Total # of Minutes Spent Total Time Spent with Patient: Total time spent is greater than 50% in coordination of care (as documented) at patient's floor/unit and/or counseling patient: Coding Level of Care Code 85915 SUB INP/OBS CARE 3/50MIN Diagnoses Intussusception, ileocecal K56.1 Low grade fever R50.9 Permanent atrial fibrillation I48.21 Diarrhea R19.7
[2025-04-03] MEDS: HYDROmorphone INJ 0.5 MG/0.5 ML SYR IV PRN (20:43)
[2025-04-03] MEDS ORDERED: MELATONIN 10 MG PO SCH (21:00)
[2025-04-03] MEDS ORDERED: FAMOTIDINE 20 MG TAB PO SCH (21:00)
[2025-04-03] MEDS ORDERED: MIRTAZAPINE TAB 15 MG TAB PO SCH (21:00)
[2025-04-03] MEDS ORDERED: DONEPEZIL HCL 5 MG TAB PO SCH (21:00)
[2025-04-03] MEDS ORDERED: ATORVASTATIN 20 MG TAB PO SCH (21:00)
[2025-04-04 07:04] LABS: Hematocrit (blood only) 31.5 % (37.0-47.0); Hemoglobin 9.7 g/dl (12.0-16.0); Immature Granulocytes # (auto) 0.04 K/uL (0.01-0.20); Immature Granulocytes % (auto) 0.4 %; Mean Corpuscular Hemoglobin 26.1 pg (25.0-34.0); Mean Corpuscular Volume 84.7 fL (80.0-100.0); Platelet Count 158 K/uL (130-400); RDW Standard Deviation 62.7 fL (36.4-46.3); Red Blood Count 3.72 M/uL (4.20-5.40); White Blood Count 9.14 K/ul (4.8-10.8)
[2025-04-04 07:21] LABS: Anion Gap 6.0 (3-11); Blood Urea Nitrogen 15.0 mg/dl (6-23); Calcium 8.9 mg/dl (8.6-10.3); Carbon Dioxide 25.0 mmol/L (21-32); Chloride 108.0 mmol/L (98-107); Creatinine Clr Calc Pharmacy 30.3 ml/min; Glucose 124.0 mg/dl (70-99(Fasting)); Magnesium 1.8 mg/dl (1.7-2.4); Potassium 4.4 mmol/L (3.5-5.1); Sodium 139.0 mmol/L (136-145)
[2025-04-04 07:28] LABS: Acanthocytes 1+; Anisocytosis Present; Ovalocytes 2+
--- NOTE | 2025-04-04 08:51 | Hospitalist Progress Note ---
Date of Service April 04, 2025 Assessment & Plan (1) Intussusception, ileocecal: (2) Low grade fever: (3) Permanent atrial fibrillation: (4) Diarrhea: Plan Ms. Monroy is an 89 y.o. F with PMHx of afib, s/p permanent cardiac pacemaker, HFpEF, stroke, HTN, GERD, hypothyroidism, peripheral neuropathy, and depression who presents to the hospital due to low grade fever and diarrhea with abdominal pain. She was found to have an ileocecal valve intussusception and was taken for right hemicolectomy on the morning of 04/03. #Diarrhea/Intussusception/cecal mass-appreciate general surgery consultation and management now s/p right hemicolectomy with 3 anastomosis - Postop care as per surgery with prophylactic antibiotics with cefoxitin - Continue IV fluids, clear liquids diet advance diet as able - Pain control with IV Dilaudid and p.o. tramadol, Tylenol as needed - fever resolved # Permanent Afib/permanent pacemaker/history of stroke-with some tachycardia postoperatively as has not received beta-shira today - Hold home Eliquis due to recent surgery likely to resume - Holding home p.o. statin - Continue Lopressor IV scheduled -Monitor on telemetry #HTN-BPs are elevated due to not receiving usual oral medications -Continue scheduled Lopressor IV 5mg q4 with hold parameters - Add on as needed hydralazine -Holding home p.o. metoprolol, diltiazem, Lasix, hydralazinelikely initiate home metoprolol as taking p.o. more reliably 04/05/2025 #GERD - Protonix IV, holding home p.o. famotidine - Zofran PRN #Cognitive impairment-hold home donepezil #Depression-no acute issues - Holding home sertraline, mirtazapine, melatonin until p.o. intake tolerated DVT prophylaxis-SCDs, SQ Lovenox Admission and Anticipated Discharge Date Admission Date: April 02, 2025 Subjective Patient seen in company of her family. She is eating clear liquids and doing well. She still had no flatus or bowel movement She has mild abdominal pain worse with moving about Physical Exam Physical Exam: Patient is pleasant she has bowel sounds present her abdomen is uncomfortable but soft Cardiac exam is regular lungs are clear Results & Data Results & Data Vital Signs (Past 12 Hours) Vital Signs Temp Pulse Pulse Resp BP BP Pulse Ox 04/04/25 08:44 77 152/76 H 04/04/25 08:13 77 152/76 H 04/04/25 07:40 98.1 F 101 H 16 134/67 96 04/04/25 04:39 77 152/76 H 04/04/25 04:06 84 146/60 H 04/04/25 03:08 97.9 F 84 18 155/73 H 97 04/04/25 01:13 90 163/75 H 04/04/25 00:28 103 H 04/03/25 23:57 96 H 147/76 H 04/03/25 23:18 97.7 F 96 H 16 147/76 H 97 04/03/25 21:46 74 150/79 H 04/03/25 21:00 O2 Del Method O2 Flow Rate 04/04/25 08:44 04/04/25 08:13 04/04/25 07:40 Nasal Cannula 1 04/04/25 04:39 04/04/25 04:06 04/04/25 03:08 Nasal Cannula 1 04/04/25 01:13 04/04/25 00:28 04/03/25 23:57 04/03/25 23:18 Nasal Cannula 1 04/03/25 21:46 04/03/25 21:00 Nasal Cannula 1 Laboratory Results Reviewed CBC mild postoperative anemia most likely acute blood loss anemia Reviewed chemistry test PG Care Time/CCT Total # of Minutes Spent Total Time Spent with Patient: Total time spent is greater than 50% in coordination of care (as documented) at patient's floor/unit and/or counseling patient: Coding Level of Care Code 22896 SUB INP/OBS CARE 3/50MIN Diagnoses Intussusception, ileocecal K56.1 Low grade fever R50.9 Permanent atrial fibrillation I48.21 Diarrhea R19.7
--- NOTE | 2025-04-04 09:53 | Surgery Progress Note ---
Date of Service April 04, 2025 Assessment & Plan (1) Intussusception, ileocecal: Plan: POD#1 robotic right hemicolectomy WBC 9, Hbg 9.7 (10.7). Vitals are stable Expected post op discomfort, tolerating clears no n/v. says she is passing some gas Encourage OOB/Pulmonary toilet If pt feels she is able to ambulate to and fro the bathroom can consider mercedes removal Will start lovenox prophylaxis today and see how she fairs prior to resuming her home oral blood thinner Admission and Anticipated Discharge Date Admission Date: April 02, 2025 Supervising Physician Co-Signing Physician Notes Patient seen and examined, labs and imaging reviewed, agree with above. POD #1 robotic assisted right hemicolectomy for intussusception and suspected mass. Little sore, states she has passed flatus. She feels tired. On exam she is afebrile with stable vitals, her abdomen is soft, dressing in place clean dry and intact, no evidence of infection. Labs unremarkable. Can slowly advance diet to full liquids today. Would like to remove the Mercedes, however she thinks she might be too weak. Recommend ambulation, out of bed to chair, I-S. Start Lovenox. PT/OT Subjective Patient feeling a little sore. Otherwise drinking some liquids without nausea/vomiting. She reports passing small amount of gas Physical Exam Physical Exam: awake/alert Respiratory: on supplemental nasal cannula Gastrointestinal (Abdomen): Inspection/Auscultation: + abdominal surgical incision (surgical dressings c/d/i ) Percussion/Palpation: + abdomen tender (expected post op discomfort) and abdomen soft Results & Data Vital Signs (Past 12 Hours) Vital Signs Temp Pulse Pulse Resp BP BP Pulse Ox 04/04/25 08:44 77 152/76 H 04/04/25 08:13 77 152/76 H 04/04/25 07:40 98.1 F 101 H 16 134/67 96 04/04/25 04:39 77 152/76 H 04/04/25 04:06 84 146/60 H 04/04/25 03:08 97.9 F 84 18 155/73 H 97 04/04/25 01:13 90 163/75 H 04/04/25 00:28 103 H 04/03/25 23:57 96 H 147/76 H 08/12/25 23:18 97.7 F 96 H 16 147/76 H 97 O2 Del Method O2 Flow Rate 04/04/25 08:44 04/04/25 08:13 04/04/25 07:40 Nasal Cannula 1 04/04/25 04:39 04/04/25 04:06 04/04/25 03:08 Nasal Cannula 1 04/04/25 01:13 04/04/25 00:28 04/03/25 23:57 04/03/25 23:18 Nasal Cannula 1 PG Care Time/CCT Total # of Minutes Spent Total Time Spent with Patient: Total time spent is greater than 50% in coordination of care (as documented) at patient's floor/unit and/or counseling patient: Coding Level of Care Code 98864 Post Operative Follow-Up Diagnoses Intussusception, ileocecal K56.1
[2025-04-04] MEDS: ENOXAPARIN INJ 40 MG/0.4 ML SYR SQ SCH (10:53)
[2025-04-04] MEDS: LIDOCAINE 5% 1 PATCH TD STA (13:21)
[2025-04-04] MEDS: REMOVE LIDODERM PATCH SCH (19:26)
[2025-04-05 07:15] LABS: Hematocrit (blood only) 32.6 % (37.0-47.0); Hemoglobin 10.2 g/dl (12.0-16.0); Mean Corpuscular Hemoglobin 26.2 pg (25.0-34.0); Mean Corpuscular Volume 83.8 fL (80.0-100.0); Platelet Count 141 K/uL (130-400); RDW Standard Deviation 63.1 fL (36.4-46.3); Red Blood Count 3.89 M/uL (4.20-5.40); White Blood Count 7.97 K/ul (4.8-10.8)
[2025-04-05 07:26] LABS: Anion Gap 7.0 (3-11); Blood Urea Nitrogen 18.0 mg/dl (6-23); Calcium 8.8 mg/dl (8.6-10.3); Carbon Dioxide 24.0 mmol/L (21-32); Chloride 108.0 mmol/L (98-107); Creatinine Clr Calc Pharmacy 36.5 ml/min; Glucose 82.0 mg/dl (70-99(Fasting)); Potassium 3.9 mmol/L (3.5-5.1); Sodium 139.0 mmol/L (136-145)
[2025-04-05 07:33] LABS: Acanthocytes 1+; Anisocytosis Present; Immature Granulocytes # (auto) 0.03 K/uL (0.01-0.20); Immature Granulocytes % (auto) 0.4 %; Ovalocytes 1+; Polychromasia 1+
[2025-04-05] MEDS: LIDOCAINE 5% 1 PATCH TD SCH (07:54)
--- NOTE | 2025-04-05 08:02 | Hospitalist Progress Note ---
Date of Service April 05, 2025 Assessment & Plan (1) Intussusception, ileocecal: (2) Low grade fever: (3) Permanent atrial fibrillation: (4) Diarrhea: Plan Ms. Monroy is an 89 y.o. F with PMHx of afib, s/p permanent cardiac pacemaker, HFpEF, stroke, HTN, GERD, hypothyroidism, peripheral neuropathy, and depression who presents to the hospital due to low grade fever and diarrhea with abdominal pain. She was found to have an ileocecal valve intussusception and was taken for right hemicolectomy on the morning of 04/03. #Diarrhea/Intussusception/cecal mass-appreciate general surgery consultation and management now s/p right hemicolectomy with 3 anastomosis - Postop care as per surgery with prophylactic antibiotics with cefoxitin have since been discontinued. - Patient tolerating advancing diet with episode of encephalopathy in the afternoon a urine test was sent. She is no longer on antibiotics however she did receive roughly 48 hours of the cefoxitin. - Pain control with IV Dilaudid and p.o. tramadol, Tylenol as neededshe does have some sensitivity to opiates but this occurred hours after initial IV Dilaudid dose - fever resolved # Permanent Afib/permanent pacemaker/history of stroke-with some tachycardia postoperatively as has not received beta-shira today - Discontinue enoxaparin and resume Eliquis therapy this evening 04/05/2025 - Holding home . statin - Continue Lopressor IV scheduled -Monitor on telemetry #HTN-BPs are elevated due to not receiving usual oral medications - In addition to oral Lopressor - Add on as needed hydralazine -Holding home p.o. metoprolol, diltiazem, Lasix, hydralazinelikely initiate home metoprolol as taking p.o. more reliably 04/05/2025 #GERD - Protonix IV, holding home p.o. famotidine - Zofran PRN #Cognitive impairment-hold home donepezil #Depression-no acute issues - Holding home sertraline, mirtazapine, melatonin until p.o. intake tolerated DVT prophylaxis-SCDs, enoxaparin Admission and Anticipated Discharge Date Admission Date: April 02, 2025 Subjective Patient is doing very good in the morning having very little pain in the middle of the afternoon she became lethargic listless had poor color then later today she once again reimproved. During the episode in the afternoon where she did not feel well we did an acute evaluation including x-ray laboratory work these were reviewed and also shared with her family there were no significant untoward changes in her blood work subsequently we will continue to evaluate her. Physical Exam Physical Exam: Patient is pleasant she has bowel sounds present her abdomen is uncomfortable but soft Cardiac exam is regular lungs are clear Results & Data Results & Data Vital Signs (Past 12 Hours) Vital Signs Temp Pulse Pulse Resp BP BP Pulse Ox 04/05/25 07:53 81 142/78 H 04/05/25 06:59 97.5 F L 92 H 19 158/84 H 95 04/05/25 04:08 81 04/05/25 03:51 85 04/05/25 02:51 98.1 F 84 16 142/70 H 95 04/05/25 00:32 76 04/05/25 00:12 89 142/78 H 04/04/25 22:58 98.1 F 83 16 134/77 94 04/04/25 20:18 77 130/74 O2 Del Method 04/05/25 07:53 04/05/25 06:59 Room Air 04/05/25 04:08 04/05/25 03:51 04/05/25 02:51 Room Air 04/05/25 00:32 04/05/25 00:12 04/04/25 22:58 Room Air 04/04/25 20:18 Laboratory Results Reviewed CBC and chemistry in the morning reorder testing in the afternoon including a VBG. No significant changes. Emergent chest x-ray was ordered no free air was seen PG Care Time/CCT Total # of Minutes Spent Total Time Spent with Patient: Total time spent is greater than 50% in coordination of care (as documented) at patient's floor/unit and/or counseling patient: Coding Level of Care Code 15133 SUB INP/OBS CARE 3/50MIN Diagnoses Intussusception, ileocecal K56.1 Low grade fever R50.9 Permanent atrial fibrillation I48.21 Diarrhea R19.7
[2025-04-05] MEDS ORDERED: ACETAMINOPHEN 500 MG TAB PO PRN (11:44)
--- NOTE | 2025-04-05 11:50 | Surgery Progress Note ---
Date of Service April 05, 2025 Assessment & Plan (1) Status post laparoscopic right hemicolectomy: Plan: POD2 robotic assisted R hemicolectomy for intussusception advance to low fiber d/c mercedes oobtc, is, ambulate, pt/ot d/c abx consider decrease fluids Admission and Anticipated Discharge Date Admission Date: April 02, 2025 Subjective POD#2 robotic assisted right hemicolectomy for intussusception. Doing well, passing flatus, no bm. tolerating liquids. minimal pain Physical Exam Constitutional: WD/WN, vitals as above Gastrointestinal (Abdomen): normal bowel sounds, soft, nontender, no hepatosplenomegaly Inspection/Auscultation: + abdominal surgical incision (ally in place, no infx) Results & Data Vital Signs (Past 12 Hours) Vital Signs Temp Pulse Pulse Resp BP BP Pulse Ox 04/05/25 10:52 36.5 C 83 19 145/73 H 93 04/05/25 10:32 04/05/25 08:09 81 142/78 H 04/05/25 07:53 81 142/78 H 04/05/25 06:59 36.4 C L 92 H 19 158/84 H 95 04/05/25 04:08 81 04/05/25 03:51 85 04/05/25 02:51 36.7 C 84 16 142/70 H 95 04/05/25 00:32 76 04/05/25 00:12 89 142/78 H O2 Del Method 04/05/25 10:52 Room Air 04/05/25 10:32 Room Air 04/05/25 08:09 04/05/25 07:53 04/05/25 06:59 Room Air 04/05/25 04:08 04/05/25 03:51 04/05/25 02:51 Room Air 04/05/25 00:32 04/05/25 00:12 Laboratory Results Laboratory Results - last 24 hr 04/05/25 06:44 WBC 7.97 RBC 3.89 L Hgb 10.2 L Hct 32.6 L MCV 83.8 MCH 26.2 MCHC 31.3 L RDW Std Deviation 63.1 H RDW Coeff of Alfredo 21.0 H Plt Count 141 MPV 12.8 H Immature Gran % (Auto) 0.4 Neut % (Auto) 68.5 Lymph % (Auto) 22.2 [place] % (Auto) 7.5 Eos % (Auto) 0.9 Baso % (Auto) 0.5 Neut # (Auto) 5.46 Lymph # (Auto) 1.77 [place] # (Auto) 0.60 H Eos # (Auto) 0.07 Baso # (Auto) 0.04 Immature Gran # (Auto) 0.03 Polychromasia 1+ Anisocytosis Present Ovalocytes 1+ Echinocytes 1+ Acanthocytes (Spur) 1+ Sodium 139 Potassium 3.9 Chloride 108 H Carbon Dioxide 24 Anion Gap 7 BUN 18 Creatinine 0.88 Est Cr Clr Drug Dosing 36.5 eGFR 63.17 BUN/Creatinine Ratio 20.5 H Glucose 82 Calcium 8.8 PG Care Time/CCT Total # of Minutes Spent Total Time Spent with Patient: Total time spent is greater than 50% in coordination of care (as documented) at patient's floor/unit and/or counseling patient: Coding Level of Care Code None Diagnoses Status post laparoscopic right hemicolectomy Z90.49
[2025-04-05] MEDS: KETOROLAC TROMETHAMINE 15 MG/ML VIAL IV SCH (12:20)
--- NOTE | 2025-04-05 15:05 | XRay Report ---
XR chest 1V portable CLINICAL HISTORY: shortness of breath eval free air COMPARISON STUDY: 04/02/2025 FINDINGS: Stable pacemaker. Stable cardiomegaly without pulmonary vascular congestion. There are smal l bilateral pleural effusions and mild adjacent lung base consolidation. Skinfold artifact overlies t he left chest. No definite pneumothorax seen. Stable cardiomegaly with mild pulmonary vascular conges tion. No gross free air seen under the diaphragm. IMPRESSION: 1. No gross free air seen under the diaphragm. 2. Skinfold artifact on the left. No definite pneumothorax seen. Follow-up chest x-ray recommended in the morning to make sure that no pneumothorax is present. 3. CHF with small bilateral pleural effusions and mild associated lung base consolidation. ACT 112: Negative or not required by law. Electronically signed by: Mike Mason M.D. 04/05/2025 3:04 PM
[2025-04-05] MEDS: ONDANSETRON INJ 2 MG/ML 2 ML VIAL IV STA (15:11)
[2025-04-05 15:45] LABS: Base Excess VBG -0.1 mEq/L; HCO3 VBG 24 mmol/L; Oxygen Saturation VBG 87.4 %; PCO2 VBG 36 mmHg (38-50); PO2 VBG 55 mmHg; pH VBG 7.43 (7.36-7.41)
[2025-04-05 15:50] LABS: Anion Gap 10.0 (3-11); Calcium 8.8 mg/dl (8.6-10.3); Carbon Dioxide 20.0 mmol/L (21-32); Chloride 107.0 mmol/L (98-107); Potassium 3.8 mmol/L (3.5-5.1); Sodium 137.0 mmol/L (136-145)
[2025-04-05 15:55] LABS: Blood Urea Nitrogen 20.0 mg/dl (6-23); Creatinine Clr Calc Pharmacy 37.3 ml/min; Glucose 87.0 mg/dl (70-99(Fasting))
[2025-04-05 16:47] LABS: Hematocrit (blood only) 33.9 % (37.0-47.0); Hemoglobin 10.9 g/dl (12.0-16.0); Mean Corpuscular Hemoglobin 26.7 pg (25.0-34.0); Mean Corpuscular Volume 82.9 fL (80.0-100.0); Platelet Count 177 K/uL (130-400); RDW Standard Deviation 62.0 fL (36.4-46.3); Red Blood Count 4.09 M/uL (4.20-5.40); White Blood Count 8.61 K/ul (4.8-10.8)
[2025-04-05] MEDS: METOPROLOL TARTRATE 25 MG TAB PO SCH (19:58)
[2025-04-05] MEDS: APIXABAN 2.5 MG TAB PO SCH (20:13)
[2025-04-05] MEDS ORDERED: METOPROLOL TARTRATE 25 MG TAB PO SCH (21:00)
[2025-04-06] MEDS: MELATONIN 3 MG TAB PO PRN (01:17)
[2025-04-06] MEDS: METOPROLOL TARTRATE 1 MG/ML VIAL IV PRN (01:56)
[2025-04-06 06:19] LABS: Hematocrit (blood only) 32.3 % (37.0-47.0); Hemoglobin 10.5 g/dl (12.0-16.0); Immature Granulocytes # (auto) 0.01 K/uL (0.01-0.20); Immature Granulocytes % (auto) 0.1 %; Mean Corpuscular Hemoglobin 26.9 pg (25.0-34.0); Mean Corpuscular Volume 82.8 fL (80.0-100.0); Platelet Count 175 K/uL (130-400); RDW Standard Deviation 61.7 fL (36.4-46.3); Red Blood Count 3.90 M/uL (4.20-5.40); White Blood Count 8.61 K/ul (4.8-10.8)
[2025-04-06 06:36] LABS: Anion Gap 8.0 (3-11); Blood Urea Nitrogen 22.0 mg/dl (6-23); Calcium 8.8 mg/dl (8.6-10.3); Carbon Dioxide 23.0 mmol/L (21-32); Chloride 108.0 mmol/L (98-107); Creatinine Clr Calc Pharmacy 36.6 ml/min; Glucose 77.0 mg/dl (70-99(Fasting)); Potassium 3.9 mmol/L (3.5-5.1); Sodium 139.0 mmol/L (136-145)
[2025-04-06 06:43] LABS: Anisocytosis Present; Ovalocytes 1+
--- NOTE | 2025-04-06 12:00 | Hospitalist Progress Note ---
Date of Service April 06, 2025 Assessment & Plan (1) Intussusception, ileocecal: (2) Low grade fever: (3) Permanent atrial fibrillation: (4) Diarrhea: Plan Ms. Monroy is an 89 y.o. F with PMHx of afib, s/p permanent cardiac pacemaker, HFpEF, stroke, HTN, GERD, hypothyroidism, peripheral neuropathy, and depression who presents to the hospital due to low grade fever and diarrhea with abdominal pain. She was found to have an ileocecal valve intussusception and was taken for right hemicolectomy on the morning of 04/03. #Diarrhea/Intussusception/cecal mass-appreciate general surgery consultation and management now s/p right hemicolectomy with re anastomosis - Postop care as per surgery with prophylactic antibiotics with cefoxitin have since been discontinued. - Patient tolerating advancing diet with episode of encephalopathy in the afternoon a urine test was sent. She is no longer on antibiotics however she did receive roughly 48 hours of the cefoxitin. - Pain control with IV Dilaudid and p.o. tramadol, Tylenol as neededshe does have some sensitivity to opiates but this occurred hours after initial IV Dilaudid dose - encephalopathy is resolved # Permanent Afib/permanent pacemaker/history of stroke-with some tachycardia postoperatively as has not received beta-shira today - Discontinue enoxaparin and resume Eliquis therapy this evening 04/05/2025 - Holding home . statin - Continue Lopressor now p.o. dosing slightly below her typical home dosing IV backup metoprolol is available -Monitor on telemetry if improved may consider downgrade on 04/07/2025 #HTN-BPs are elevated due to not receiving usual oral medications - In addition to oral Lopressor -Holding home p.o. diltiazem, Lasix, hydralazinedid initiate home metoprolol as taking p.o. more reliably 04/05/2025 #GERD - Transition to p.o. famotidine - Zofran PRN #Cognitive impairment-hold home donepezil #Depression-no acute issues - Restart sertraline, mirtazapine, [place] melatonin DVT prophylaxis-SCDs, enoxaparin Admission and Anticipated Discharge Date Admission Date: April 02, 2025 Subjective Pt did have some pain with movement to chair in abd, did have some loose bowel movements, still has mercedes Physical Exam Physical Exam: Patient is pleasant she has bowel sounds present her abdomen is uncomfortable especially with movement but remains soft Cardiac exam is regular lungs are clear Results & Data Results & Data Vital Signs (Past 12 Hours) Vital Signs Temp Pulse Pulse Resp BP Pulse Ox Pulse Ox 04/06/25 11:18 96 04/06/25 11:02 97.5 F L 92 H 18 126/65 98 04/06/25 08:00 97 H 04/06/25 07:28 98.1 F 113 H 18 158/81 H 95 04/06/25 03:07 97.5 F L 92 H 16 126/78 93 04/06/25 03:02 95 H 04/06/25 01:56 137 H O2 Del Method O2 Flow Rate 04/06/25 11:18 0 04/06/25 11:02 Room Air 04/06/25 08:00 04/06/25 07:28 Room Air 04/06/25 03:07 Room Air 04/06/25 03:02 04/06/25 01:56 Laboratory Results Reviewed CBC hemoglobin stable Reviewed chemistry stable renal function PG Care Time/CCT Total # of Minutes Spent Total Time Spent with Patient: Total time spent is greater than 50% in coordination of care (as documented) at patient's floor/unit and/or counseling patient: Coding Level of Care Code 62280 SUB INP/OBS CARE 3/50MIN Diagnoses Intussusception, ileocecal K56.1 Low grade fever R50.9 Permanent atrial fibrillation I48.21 Diarrhea R19.7
--- NOTE | 2025-04-06 12:04 | Surgery Progress Note ---
Date of Service April 06, 2025 Assessment & Plan (1) Status post laparoscopic right hemicolectomy: Plan: POD #3 robotic right hemicolectomy for ileocecal intussusception. Doing well, loose bowel movements, some abdominal discomfort but no nausea or vomiting. Will advance to low fiber diet DC Alcazar Ambulate, I-S, out of bed to chair, PT OT Dr. Mcgovern covering over the weekend Admission and Anticipated Discharge Date Admission Date: April 02, 2025 Subjective POD #3 robotic assisted right hemicolectomy for intussusception. She has had multiple loose bowel movements and has some generalized abdominal discomfort. She denies any nausea or vomiting. She has tolerated clear liquids. The Alcazar was kept in place that she had some confusion yesterday afternoon along with some increased nausea. This is since resolved. Physical Exam Constitutional: WD/WN, vitals as above Gastrointestinal (Abdomen): Inspection/Auscultation: + abdominal surgical incision (Healing well, no infection) Percussion/Palpation: + abdomen tender (Appropriate) and abdomen soft; no guarding Results & Data Vital Signs (Past 12 Hours) Vital Signs Temp Pulse Pulse Resp BP Pulse Ox Pulse Ox 04/06/25 11:18 96 04/06/25 11:02 36.4 C L 92 H 18 126/65 98 04/06/25 08:00 97 H 04/06/25 07:28 36.7 C 113 H 18 158/81 H 95 04/06/25 03:07 36.4 C L 92 H 16 126/78 93 04/06/25 03:02 95 H 04/06/25 01:56 137 H O2 Del Method O2 Flow Rate 04/06/25 11:18 0 04/06/25 11:02 Room Air 04/06/25 08:00 04/06/25 07:28 Room Air 04/06/25 03:07 Room Air 04/06/25 03:02 04/06/25 01:56 Laboratory Results Laboratory Results - last 24 hr 04/05/25 04/05/25 04/06/25 15:10 16:11 05:49 WBC Cancelled 8.61 8.61 RBC Cancelled 4.09 L 3.90 L Hgb Cancelled 10.9 L 10.5 L Hct Cancelled 33.9 L 32.3 L MCV Cancelled 82.9 82.8 MCH Cancelled 26.7 26.9 MCHC Cancelled 32.2 32.5 RDW Std Deviation Cancelled 62.0 H 61.7 H RDW Coeff of Alfredo Cancelled 20.9 H 20.7 H Plt Count Cancelled 177 175 MPV Cancelled 12.7 H 12.6 H Immature Gran % (Auto) 0.1 Neut % (Auto) 74.0 Lymph % (Auto) 16.7 [place] % (Auto) 7.4 Eos % (Auto) 1.3 Baso % (Auto) 0.5 Neut # (Auto) 6.37 Lymph # (Auto) 1.44 [place] # (Auto) 0.64 H Eos # (Auto) 0.11 Baso # (Auto) 0.04 Immature Gran # (Auto) 0.01 Absolute Nucleated RBC Cancelled Nucleated RBC % (auto) Cancelled Platelet Estimate Cancelled Anisocytosis Present Ovalocytes 1+ Echinocytes 1+ VBG pH 7.43 H VBG pCO2 36 L VBG pO2 55 VBG HCO3 24 VBG O2 Saturation 87.4 VBG Base Excess -0.1 Sodium 137 139 Potassium 3.8 3.9 Chloride 107 108 H Carbon Dioxide 20 L 23 Anion Gap 10 8 BUN 20 22 Creatinine 0.86 0.90 Est Cr Clr Drug Dosing 37.3 36.6 eGFR 64.94 61.49 BUN/Creatinine Ratio 23.3 H 24.4 H Glucose 87 77 Calcium 8.8 8.8 PG Care Time/CCT Total # of Minutes Spent Total Time Spent with Patient: Total time spent is greater than 50% in coordination of care (as documented) at patient's floor/unit and/or counseling patient: Coding Level of Care Code 81185 Post Operative Follow-Up Diagnoses Status post laparoscopic right hemicolectomy Z90.49
[2025-04-06] MEDS: MIRTAZAPINE TAB 15 MG TAB PO SCH (20:21)
[2025-04-07] MEDS: FAMOTIDINE 40 MG/5 ML 50ML BTL PO SCH (07:41)
[2025-04-07] MEDS: SERTRALINE HCL 50 MG TABLET PO SCH (07:41)
[2025-04-07 09:07] LABS: Hematocrit (blood only) 36.5 % (37.0-47.0); Hemoglobin 11.3 g/dl (12.0-16.0); Immature Granulocytes # (auto) 0.03 K/uL (0.01-0.20); Immature Granulocytes % (auto) 0.4 %; Mean Corpuscular Hemoglobin 26.0 pg (25.0-34.0); Mean Corpuscular Volume 83.9 fL (80.0-100.0); Platelet Count 216 K/uL (130-400); RDW Standard Deviation 62.4 fL (36.4-46.3); Red Blood Count 4.35 M/uL (4.20-5.40); White Blood Count 7.78 K/ul (4.8-10.8)
[2025-04-07 09:22] LABS: Anion Gap 7.0 (3-11); Blood Urea Nitrogen 22.0 mg/dl (6-23); Calcium 8.6 mg/dl (8.6-10.3); Carbon Dioxide 23.0 mmol/L (21-32); Chloride 112.0 mmol/L (98-107); Creatinine Clr Calc Pharmacy 34.2 ml/min; Glucose 119.0 mg/dl (70-99(Fasting)); Potassium 3.7 mmol/L (3.5-5.1); Sodium 142.0 mmol/L (136-145)
[2025-04-07 10:00] LABS: Anisocytosis Present; Hypochromasia Present; Ovalocytes 1+
--- NOTE | 2025-04-07 10:39 | Surgery Progress Note ---
Date of Service April 07, 2025 Assessment & Plan (1) Status post laparoscopic right hemicolectomy: Plan: POD #4 robotic right hemicolectomy for ileocecal intussusception. Doing well, loose bowel movements, some abdominal discomfort but no nausea or vomiting. WBC 7, Hbg 11.3. HRs 100s, no fevers pain controlled, + bowel function Tolerating diet continue OOB/ambulation/IS/ PT/OT consults ordered As above. Overall doing well. Tolerating diet. Bowels are moving. Likely discharge back to [facility] Wednesday Admission and Anticipated Discharge Date Admission Date: April 02, 2025 Subjective Patient reports pain controlled. Tolerating diet. + bowel function Physical Exam Physical Exam: sleepy, but awake and no distress Respiratory: normal respiratory effort Gastrointestinal (Abdomen): expected post op pain, midline incision Results & Data Vital Signs (Past 12 Hours) Vital Signs Temp Pulse Pulse Pulse Resp BP BP 04/07/25 07:31 97.5 F L 107 H 20 171/88 H 04/07/25 05:32 102 H 166/82 H 04/07/25 05:17 130 H 175/76 H 04/07/25 04:06 97.5 F L 112 H 17 176/76 H 04/06/25 23:50 97.5 F L 116 H 16 160/78 H Pulse Ox O2 Del Method 04/07/25 07:31 95 Room Air 04/07/25 05:32 04/07/25 05:17 04/07/25 04:06 96 Room Air 04/06/25 23:50 98 Room Air PG Care Time/CCT Total # of Minutes Spent Total Time Spent with Patient: Total time spent is greater than 50% in coordination of care (as documented) at patient's floor/unit and/or counseling patient: Coding Level of Care Code 44535 Post Operative Follow-Up Diagnoses Status post laparoscopic right hemicolectomy Z90.49
--- NOTE | 2025-04-07 16:43 | Hospitalist Progress Note ---
Date of Service April 07, 2025 Assessment & Plan (1) Intussusception, ileocecal: (2) Low grade fever: (3) Permanent atrial fibrillation: (4) Diarrhea: Plan Ms. Monroy is an 89 y.o. F with PMHx of afib, s/p permanent cardiac pacemaker, HFpEF, stroke, HTN, GERD, hypothyroidism, peripheral neuropathy, and depression who presents to the hospital due to low grade fever and diarrhea with abdominal pain. She was found to have an ileocecal valve intussusception and was taken for right hemicolectomy on the morning of 04/03. #Diarrhea/Intussusception/cecal mass-appreciate general surgery consultation and management now s/p right hemicolectomy with re anastomosis - Postop care as per surgery with prophylactic antibiotics with cefoxitin have since been discontinued. - Patient tolerating advancing diet with episode of encephalopathy in the afternoon a urine test was sent. She is no longer on antibiotics however she did receive roughly 48 hours of the cefoxitin. - Pain control with IV Dilaudid and p.o. tramadol, Tylenol as neededshe does have some sensitivity to opiates but this occurred hours after initial IV Dilaudid dose - encephalopathy is resolved - pathology still pending. Pt stated that she does not want any treatment if the pathology comes back malignant # Permanent Afib/permanent pacemaker/history of stroke-with some tachycardia postoperatively as has not received beta-shira today - Discontinue enoxaparin and resume Eliquis therapy this evening 04/05/2025 - Holding home . statin - pt is on metoprolol 50mg po bid, but currently on 25mg po BID, will increase to home dose with IV backup metoprolol is available - cont to monitor on telemetry if improved may consider downgrade on 04/07/2025 #HTN-BPs are elevated due to not receiving usual oral medications - In addition to oral Lopressor -Holding home p.o. diltiazem, Lasix, hydralazinedid initiate home metoprolol as taking p.o. more reliably 04/05/2025 #GERD - Transition to p.o. famotidine - Zofran PRN #Cognitive impairment-hold home donepezil #Depression-no acute issues - Restart sertraline, mirtazapine, [place] melatonin DVT prophylaxis-SCDs, enoxaparin Pt's daughter Missy at bedside. Discussed that Chapis from [facility] come to evaluate her appropriateness to return. Pt is mostly wheelchair bound by choice. Pt and family does not want pt to be at [facility] for extended period of time. Discharge pending evaluation by Chapis. Admission and Anticipated Discharge Date Admission Date: April 02, 2025 Subjective No acute events overnight Currently no new complaints Review of Systems Review of Systems: Comprehensive ROS completed and is otherwise negative. Physical Exam Physical Exam: Gen: no acute distress, lying in bed comfortable HEENT: NC/AT, MMM Lungs: nonlabored breathing, CTAB CVS: s1s2nl, irregular Abd: nl bowel sounds, soft, NT / ND, surgical site C/D/I : no mercedes Ext: no edema Neuro: AAOx3 Psych: calm cooperative Results & Data Results & Data Vital Signs (Past 12 Hours) Vital Signs Temp Pulse Pulse Resp BP BP Pulse Ox 04/07/25 15:19 36.5 C 96 H 21 159/88 H 100 04/07/25 10:49 36.3 C L 118 H 21 159/86 H 100 04/07/25 07:31 36.4 C L 107 H 20 171/88 H 95 04/07/25 05:32 102 H 166/82 H 04/07/25 05:17 130 H 175/76 H O2 Del Method O2 Flow Rate 04/07/25 15:19 Room Air 04/07/25 10:49 Nasal Cannula 2 04/07/25 07:31 Room Air 04/07/25 05:32 04/07/25 05:17 PG Care Time/CCT Total # of Minutes Spent Total Time Spent with Patient: Total time spent is greater than 50% in coordination of care (as documented) at patient's floor/unit and/or counseling patient: Coding Level of Care Code 42212 SUB INP/OBS CARE 3/50MIN Diagnoses Intussusception, ileocecal K56.1 Low grade fever R50.9 Permanent atrial fibrillation I48.21 Diarrhea R19.7
[2025-04-07 18:01] LABS: Adenovirus F 40/41 PCR Not Detected (NotDetected); Campylobacter PCR Not Detected (NotDetected); Enteroaggregative E.coli(EAEC) Not Detected (NotDetected); Shiga-like Toxin E.coli (STEC) Not Detected (NotDetected); Vibrio species PCR Not Detected (NotDetected)
[2025-04-07] MEDS: METOPROLOL TARTRATE 50 MG TAB PO SCH (20:13)
--- NOTE | 2025-04-08 07:34 | Hospitalist Progress Note ---
Date of Service April 08, 2025 Assessment & Plan (1) Intussusception, ileocecal: (2) Low grade fever: (3) Permanent atrial fibrillation: (4) Diarrhea: Plan 89 y.o. F with PMHx of afib s/p PPM, HFpEF, stroke, HTN, GERD, hypothyroidism, peripheral neuropathy, and depression who presented to [facility] [place] on 04/02/25 for the evaluation of low grade fever and diarrhea with abdominal pain. Workup revealed an ileocecal valve intussusception. On 04/03/25, she underwent robotic right hemicolectomy which was converted to low midline incision due to thickened cecum and suspected palpable mass. #Diarrhea/Intussusception/cecal mass - gen surgery recs, s/p right hemicolectomy with re anastomosis - Postop care as per surgery with prophylactic antibiotics with cefoxitin have since been discontinued - Pain control with prn tylenol / tramadol / IV dilaudid - pathology still pending (as of 04/08 AM). Pt stated that she does not want any treatment if the pathology comes back malignant #Episode of encephalopathy - resolved #Cognitive impairment - UA sent, which was unremarkable (though pt did receive cefoxitin for about 48 hrs due to surgery) - delirium has resolved, suspect potential effects of opioids (though episode was well after administration of opioids) - resume home donepezil #Permanent Afib s/p PPM/permanent pacemaker/history of stroke - pt did have some post op tachycardia as she did not receive her metoprolol - resumed Eliquis therapy on the evening 04/05/2025 - holding home statin - pt is on metoprolol 50mg po bid at home, but started on 25mg po BID while inpt, increased to home dose on 04/07/25 with IV backup metoprolol - cont to monitor on telemetry until HR stabilizes #Exertional dyspnea - pt takes Lasix 20mg po daily PRN - will give Lasix 40mg IV x1, reassess again tomorrow #HTN - BP remains elevated as pt is not on her full home regimen - resume diltiazem and hydralazine (04/08) with hold parameters - cont IV metoprolol PRN #GERD - transition to p.o. famotidine - Zofran PRN #Depression - no acute issues - cont sertraline, mirtazapine, [place] melatonin #DVT prophylaxis - cont apixaban #Dispo: awaiting [facility] to assess pt on Wednesday04/10/2504/08: Pt's daughter Missy at bedside. Discussed that Chapis from [facility] come to evaluate her appropriateness to return. Pt is mostly wheelchair bound by choice. Pt and family does not want pt to be at [facility] for extended period of time. Discharge pending evaluation by Chapis. CM aware. Admission and Anticipated Discharge Date Admission Date: April 02, 2025 Subjective No acute events overnight This morning, pt appears more dyspneic even with minimal movement. She also noted that she occasionally sees things in the room that are not real, like a cat. She denied n/v, abdominal pain. She is having BMs Review of Systems Review of Systems: Comprehensive ROS completed and is otherwise negative. Physical Exam Physical Exam: Gen: no acute distress, lying in bed comfortable HEENT: NC/AT, MMM Lungs: dyspnea with minimal exertion, decreased breath sounds b/l bases CVS: s1s2nl, irregular Abd: nl bowel sounds, soft, NT / ND, surgical site C/D/I : no mercedes Ext: no edema Neuro: AAOx3 Psych: calm cooperative Results & Data Results & Data Vital Signs (Past 12 Hours) Vital Signs Temp Pulse Pulse Resp BP BP Pulse Ox 04/08/25 05:09 100 H 165/77 H 04/08/25 04:54 125 H 171/91 H 04/08/25 04:23 36.5 C 113 H 17 171/91 H 98 04/08/25 00:06 36.4 C L 104 H 18 163/77 H 97 04/07/25 21:44 100 H 04/07/25 21:00 04/07/25 20:48 36.8 C 126 H 17 164/92 H 97 O2 Del Method O2 Flow Rate 04/08/25 05:09 04/08/25 04:54 04/08/25 04:23 Nasal Cannula 2 04/08/25 00:06 Nasal Cannula 2 04/07/25 21:44 04/07/25 21:00 Nasal Cannula 2 04/07/25 20:48 Nasal Cannula 2 PG Care Time/CCT Total # of Minutes Spent Total Time Spent with Patient: Total time spent is greater than 50% in coordination of care (as documented) at patient's floor/unit and/or counseling patient: Coding Level of Care Code 58695 SUB INP/OBS CARE 235MIN Diagnoses Intussusception, ileocecal K56.1 Low grade fever R50.9 Permanent atrial fibrillation I48.21 Diarrhea R19.7
[2025-04-08 07:58] LABS: Hematocrit (blood only) 32.8 % (37.0-47.0); Hemoglobin 10.3 g/dl (12.0-16.0); Mean Corpuscular Hemoglobin 26.5 pg (25.0-34.0); Mean Corpuscular Volume 84.3 fL (80.0-100.0); Platelet Count 205 K/uL (130-400); RDW Standard Deviation 63.3 fL (36.4-46.3); Red Blood Count 3.89 M/uL (4.20-5.40); White Blood Count 7.38 K/ul (4.8-10.8)
[2025-04-08 08:19] LABS: Anion Gap 6.0 (3-11); Blood Urea Nitrogen 23.0 mg/dl (6-23); Calcium 8.4 mg/dl (8.6-10.3); Carbon Dioxide 25.0 mmol/L (21-32); Chloride 114.0 mmol/L (98-107); Creatinine Clr Calc Pharmacy 37.1 ml/min; Glucose 124.0 mg/dl (70-99(Fasting)); Magnesium 1.6 mg/dl (1.7-2.4); Potassium 3.4 mmol/L (3.5-5.1); Sodium 145.0 mmol/L (136-145)
--- NOTE | 2025-04-08 10:21 | Surgery Progress Note ---
Date of Service April 08, 2025 Assessment & Plan (1) Status post laparoscopic right hemicolectomy: Plan: POD #5 robotic right hemicolectomy for ileocecal intussusception WBC 7, Hbg 10.3. HRs 100s, no fevers pain controlled, + bowel function Tolerating diet continue OOB/ambulation/IS/ PT/OT consults ordered stable for d/c from gen surg standpoint f/u office in 2 weeks, or sooner if needed Admission and Anticipated Discharge Date Admission Date: April 02, 2025 Subjective pt denies n/v +flatus and bms Review of Systems Constitutional: no fever and no chills Gastrointestinal: no nausea and no vomiting Physical Exam Constitutional: comfortable; no acute distress Respiratory: able to speak in complete sentences; no respiratory distress Results & Data Vital Signs (Past 12 Hours) Vital Signs Temp Pulse Pulse Resp BP BP Pulse Ox 04/08/25 07:51 98.1 F 116 H 19 163/83 H 96 04/08/25 05:09 100 H 165/77 H 04/08/25 04:54 125 H 171/91 H 04/08/25 04:23 97.7 F 113 H 17 171/91 H 98 04/08/25 00:06 97.5 F L 104 H 18 163/77 H 97 O2 Del Method O2 Flow Rate 04/08/25 07:51 Nasal Cannula 1.0 04/08/25 05:09 04/08/25 04:54 04/08/25 04:23 Nasal Cannula 2 04/08/25 00:06 Nasal Cannula 2 PG Care Time/CCT Total # of Minutes Spent Total Time Spent with Patient: Total time spent is greater than 50% in coordination of care (as documented) at patient's floor/unit and/or counseling patient: Coding Level of Care Code 22009 Post Operative Follow-Up Diagnoses Status post laparoscopic right hemicolectomy Z90.49
[2025-04-08] MEDS: FUROSEMIDE 40 MG/4 ML VIAL IV ONE (10:22)
[2025-04-08] MEDS: MAGNESIUM OXIDE 400 MG TAB PO SCH (11:14)
[2025-04-08] MEDS: POTASSIUM CHLORIDE CRTAB 20 MEQ TABCR PO SCH (11:15)
[2025-04-08] MEDS: DONEPEZIL HCL 5 MG TAB PO SCH (20:40)
[2025-04-09 07:33] LABS: Anion Gap 5.0 (3-11); Blood Urea Nitrogen 22.0 mg/dl (6-23); Calcium 8.6 mg/dl (8.6-10.3); Carbon Dioxide 27.0 mmol/L (21-32); Chloride 112.0 mmol/L (98-107); Creatinine Clr Calc Pharmacy 39.9 ml/min; Glucose 94.0 mg/dl (70-99(Fasting)); Magnesium 1.7 mg/dl (1.7-2.4); Potassium 4.3 mmol/L (3.5-5.1); Sodium 144.0 mmol/L (136-145)
--- NOTE | 2025-04-09 08:28 | Surgery Progress Note ---
Date of Service April 09, 2025 Assessment & Plan (1) Status post laparoscopic right hemicolectomy: Plan: pt is s/p robotic assisted R hemicolectomy on 04/03 pt is progressing well tolerating a diet, no n/v. pain controlled. having + bowel function incision c/d/i and midline ally without signs of infection), may leave open to air okay for d/c from our POV, follow up in office in ~ 1 week for staple removal Admission and Anticipated Discharge Date Admission Date: April 02, 2025 Supervising Physician Co-Signing Physician Notes Patient seen examined, labs reviewed, agree with above. Status post robotic assisted right hemicolectomy for ileocolic intussusception. She has had good return of bowel function and is tolerating a regular diet. She has been medically managed for some CHF and pulmonary edema. On exam she is afebrile with stable vitals. Her abdomen is soft, nontender, nondistended. Incision with ally in place, no infection. Okay to discharge from general surgery standpoint. Follow-up with me in 1 to 2 weeks for staple removal. No heavy lifting or strenuous activity till 4 weeks postop. Otherwise gradually increase activity as feels comfortable. She may shower, do not soak or scrub the wounds. Path pending. Subjective Patient is feeling well. Pain controlled. She is tolerating a diet without nausea/vomiting. She is passing gas. Last BM yesterday. Physical Exam Physical Exam: awake/alert, no distress Respiratory: normal respiratory effort Gastrointestinal (Abdomen): Inspection/Auscultation: + abdominal surgical incision (c/d/i with midline ally, no signs of infection) Percussion/Palpation: abdomen soft; abdomen nontender Results & Data Vital Signs (Past 12 Hours) Vital Signs Temp Pulse Pulse Resp BP BP Pulse Ox 04/09/25 07:18 98.4 F 108 H 18 156/78 H 96 04/09/25 03:43 97.9 F 118 H 17 158/81 H 95 04/08/25 23:21 98.2 F 82 18 119/63 95 04/08/25 22:08 93 H 04/08/25 21:00 O2 Del Method O2 Flow Rate 04/09/25 07:18 Room Air 04/09/25 03:43 Room Air 04/08/25 23:21 Room Air 04/08/25 22:08 04/08/25 21:00 Nasal Cannula 2 PG Care Time/CCT Total # of Minutes Spent Total Time Spent with Patient: Total time spent is greater than 50% in coordination of care (as documented) at patient's floor/unit and/or counseling patient: Coding Level of Care Code 77362 Post Operative Follow-Up Diagnoses Status post laparoscopic right hemicolectomy Z90.49
--- NOTE | 2025-04-09 08:48 | XRay Report ---
XR chest 1V portable CLINICAL HISTORY: dyspnea COMPARISON STUDY: 04/05/2025 FINDINGS: Stable pacemaker. Stable cardiomegaly with mild pulmonary vascular congestion. Stable small bilateral pleural effusions and associated lung base consolidation. No pneumothorax seen. IMPRESSION: CHF with small bilateral pleural effusions and lung base consolidation, stable. ACT 112: Negative or not required by law. Electronically signed by: Mike Mason M.D. 04/09/2025 8:47 AM
[2025-04-09] MEDS: FUROSEMIDE 40 MG/4 ML VIAL IV ONE (10:20)
--- NOTE | 2025-04-09 14:09 | Hospitalist Progress Note ---
Date of Service April 09, 2025 Assessment & Plan (1) Intussusception, ileocecal: Plan: Status post laparoscopic right hemicolectomy on April 03. Postoperative day #6. Appreciate general surgery consultation and recommendations. (2) Acute on chronic diastolic CHF (congestive heart failure): Plan: Seen on chest x-ray and present on clinical exam. Parenteral Lasix ordered. Monitor intake and output. BNP is elevated at 676. Will repeat chest x-ray again tomorrow, April 10. (3) Permanent atrial fibrillation: Plan: Currently on Eliquis. She also has a permanent pacemaker. Telemetry. (4) Diarrhea: Plan: Postoperative. Add Metamucil. Plan Hopeful discharge to [facility] tomorrowApril 10 Admission and Anticipated Discharge Date Admission Date: April 02, 2025 Subjective Alert and pleasant. She appears to have acute on chronic diastolic CHF per physical exam and chest x-ray. She is now on parenteral Lasix. She will need rehab placement before she can return to personal care. Case management notified to pursue [facility] placement as early as tomorrowApril 10. Review of Systems 2 Review of Systems: Constitutionalno fever or chills ENTno blurred vision, no double vision, no epistaxis, no sore throat Respiratoryno cough, no wheezing, no shortness of breath at rest. She is mildly dyspneic with exertion Cardiacno palpitations, no chest pain, no syncope Jose Carlos nausea, vomiting, melena, hematochezia. She does have loose stools postoperatively. This will need further investigation if it persists GUno urinary retention, no urinary incontinence, no dysuria, no hematuria Musculoskeletalno joint pain, no muscle tenderness Skinno bruising, no rashes, no pruritus Neurono isolated weakness, no paresthesia, no weakness Psychno depression, no anxiety Physical Exam 2 Physical Exam: General-alert and oriented x3, no fever, no chills HEENT-head atraumatic and normocephalic, pupils equal and reactive to light, extraocular muscles intact Neck-no lymphadenopathy or thyromegaly, trachea midline Chest-bibasilar inspiratory rales. No rhonchi. No wheezing Cardiac-regular rate and rhythm, normal S1 and S2 Abdomen-normal bowel sounds, no hepatosplenomegaly Extremities-no cyanosis, clubbing, or edema Neuro-cranial nerves II through XII intact, motor and sensory function within normal limits, strength symmetrical, no focal deficits Psych-normal affect, normal mood Results & Data Results & Data Vital Signs (Past 12 Hours) Vital Signs Temp Pulse Resp BP BP Pulse Ox O2 Del Method 04/09/25 11:00 36.9 C 89 20 147/72 H 97 Room Air 04/09/25 07:18 36.9 C 108 H 18 156/78 H 96 Room Air 04/09/25 03:43 36.6 C 118 H 17 158/81 H 95 Room Air Laboratory Results 04/08/25 06:58 04/09/25 06:43 PG Care Time/CCT Total # of Minutes Spent Total Time Spent with Patient: Total time spent is greater than 50% in coordination of care (as documented) at patient's floor/unit and/or counseling patient: Coding Level of Care Code 04286 SUB INP/OBS CARE 3/50MIN Diagnoses Intussusception, ileocecal K56.1 Acute on chronic diastolic CHF (congestive heart failure) I50.33 Permanent atrial fibrillation I48.21 Diarrhea R19.7
--- NOTE | 2025-04-09 16:42 | Hospitalist Progress Note ---
Date of Service April 09, 2025 Assessment & Plan (1) Intussusception, ileocecal: Plan: Status post laparoscopic right hemicolectomy on April 03. Postoperative day #6. Appreciate general surgery consultation and recommendations. (2) Acute on chronic diastolic CHF (congestive heart failure): Plan: Seen on chest x-ray and present on clinical exam. Parenteral Lasix ordered. Monitor intake and output. BNP is elevated at 676. Will repeat chest x-ray again tomorrow, April 10. (3) Permanent atrial fibrillation: Plan: Currently on Eliquis. She also has a permanent pacemaker. Telemetry. (4) Diarrhea: Plan: Postoperative. Add Metamucil. Plan [facility]ful discharge to [facility] tomorrowApril 10 Admission and Anticipated Discharge Date Admission Date: April 02, 2025 Subjective Alert and oriented. BNP has increased to 676 and chest x-ray looks like congestive heart failure with bilateral pleural effusions. BNP is increased from 98-676. 1 dose of parenteral Lasix has been administered today and she is already diuresing well. Will repeat chest x-ray again tomorrow, April 10. Postoperative day #6 after laparoscopic right hemicolectomy. She has loose stools postoperatively but otherwise is doing well. She will need rehab before she can return to the personal care facility. Case management has been notified. Review of Systems 2 Review of Systems: Constitutionalno fever or chills ENTno blurred vision, no double vision, no epistaxis, no sore throat Respiratoryno cough, no wheezing, no shortness of breath Cardiacno palpitations, no chest pain, no syncope Jose Carlos nausea, vomiting, melena, hematochezia. Stools have been loose postoperatively GUno urinary retention, no urinary incontinence, no dysuria, no hematuria Musculoskeletalno joint pain, no muscle tenderness Skinno bruising, no rashes, no pruritus Neurono isolated weakness, no paresthesia, no weakness Psychno depression, no anxiety Physical Exam 2 Physical Exam: General-alert and oriented x3, no fever, no chills HEENT-head atraumatic and normocephalic, pupils equal and reactive to light, extraocular muscles intact Neck-no lymphadenopathy or thyromegaly, trachea midline Chest-bibasilar inspiratory rales. No rhonchi. No wheezing. Cardiac-regular rate and rhythm, normal S1 and S2 Abdomen-normal bowel sounds, no hepatosplenomegaly Extremities-no cyanosis, clubbing, or edema Neuro-cranial nerves II through XII intact, motor and sensory function within normal limits, strength symmetrical, no focal deficits Psych-normal affect, normal mood Results & Data Results & Data Vital Signs (Past 12 Hours) Vital Signs Temp Pulse Resp BP Pulse Ox O2 Del Method 04/09/25 15:00 36.7 C 79 18 139/69 96 Room Air 04/09/25 11:00 36.9 C 89 20 147/72 H 97 Room Air 04/09/25 07:18 36.9 C 108 H 18 156/78 H 96 Room Air Laboratory Results 04/08/25 06:58 04/09/25 06:43 PG Care Time/CCT Total # of Minutes Spent Total Time Spent with Patient: Total time spent is greater than 50% in coordination of care (as documented) at patient's floor/unit and/or counseling patient: Coding Diagnoses Intussusception, ileocecal K56.1 Acute on chronic diastolic CHF (congestive heart failure) I50.33 Permanent atrial fibrillation I48.21 Diarrhea R19.7
--- NOTE | 2025-04-10 08:51 | Surgery Progress Note ---
Date of Service April 10, 2025 Assessment & Plan (1) Status post laparoscopic right hemicolectomy: Plan: pt is s/p robotic assisted R hemicolectomy on 04/03 pt is progressing well tolerating a diet, no n/v. pain controlled. having + bowel function incision c/d/i and midline ally without signs of infection), may leave open to air okay for d/c from our POV, follow up in office in ~ 1 week for staple removal Admission and Anticipated Discharge Date Admission Date: April 02, 2025 Supervising Physician Co-Signing Physician Notes Patient seen and examined, agree with above. Status post robotic assisted right hemicolectomy. She has had good return of bowel function as tolerated diet. She is about to be discharged to [facility]. On exam she is afebrile stable vitals. Abdomen soft, nondistended, incision without infection, nontender. 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 She was informed of these results. Follow-up with me in 1 to 2 weeks. Activity restrictions and wound care instructions reviewed. Return precautions given. Subjective Patient feeling well. No complaints of pain/n/v. Tolerating diet. has been having bowel function Physical Exam Physical Exam: awake Respiratory: on room air saturating well Gastrointestinal (Abdomen): Inspection/Auscultation: + abdominal surgical incision (abdomen with ally, no signs of infection) Percussion/Palpation: abdomen soft; abdomen nontender Results & Data Vital Signs (Past 12 Hours) Vital Signs Temp Pulse Pulse Resp BP Pulse Ox O2 Del Method 04/10/25 08:21 97.7 F 83 14 113/68 96 Room Air 04/10/25 07:41 91 H 04/10/25 07:41 Room Air 04/10/25 04:44 97.5 F L 97 H 16 158/72 H 95 Room Air 04/09/25 22:53 97.7 F 90 16 138/72 93 Room Air 04/09/25 22:04 110 H PG Care Time/CCT Total # of Minutes Spent Total Time Spent with Patient: Total time spent is greater than 50% in coordination of care (as documented) at patient's floor/unit and/or counseling patient: Coding Level of Care Code 13536 Post Operative Follow-Up Diagnoses Status post laparoscopic right hemicolectomy Z90.49
--- NOTE | 2025-04-10 10:08 | XRay Report ---
XR chest 1V portable CLINICAL HISTORY: CHF COMPARISON STUDY: 04/09/2025 FINDINGS: Stable pacemaker. Stable cardiomegaly with mild pulmonary vascular congestion. Stable small bilateral pleural effusions and mild lung base consolidation, left greater than right. No pneumothor ax. Skinfold artifact is present at the left chest. IMPRESSION: Stable exam. ACT 112: Negative or not required by law. Electronically signed by: Mike Mason M.D. 04/10/2025 10:06 AM
[2025-04-10] MEDS: FUROSEMIDE 40 MG/4 ML VIAL IV ONE (10:45)
[2025-04-10 11:12] VITALS: RESP 20; TEMP 98.1; O2SAT 97
--- NOTE | 2025-04-10 12:13 | Discharge Summary ---
Discharge Summary Date of Service April 10, 2025 Principal Dx & Hospital Course #1 = Principal Diagnosis (1) Intussusception, ileocecal: Postoperative day 7 after laparoscopic right hemicolectomy on April 03. Appreciate general surgery assistance. She is doing well. (2) Acute on chronic diastolic CHF (congestive heart failure): Improved with Lasix diuresis. Chest x-ray done today, April 10, looks better. She is on room air. (3) Permanent atrial fibrillation: Rate controlled. Continue Eliquis. Continue current medical management (4) Diarrhea: Noninfectious. Symptomatic treatment Plan Discharge to [facility] today, April 10. Follow-up with surgery in 1 week for staple removal Admission HPI Per Admitting Provider Ms. Monroy is an 89 y.o. F with PMHx of afib, s/p permanent cardiac pacemaker, CHF, stroke, HTN who presents to the hospital due to low grade fever and diarrhea. Patient lives at [facility]. Reports 101 fever this morning, however denies cough, sore throat, or other sick symptoms. Patient also states she has 4 day history of diarrhea. Reports 2-4 bowel movements per day. Denies blood in BM. Last BM was today morning. She visited [facility] however was told to come to the ED since she was not able to provide a urine sample. Denies dysuria and blood in urine however reports urinary urgency for past 2 months. Urinates 3-4x per day. Denies CP, SOB, AP, lightheadedness. She is unsure of which medications she takes on daily, but takes Eliquis per chart review. No other acute complaints. Discharge Exam General-alert and oriented x3, no fever, no chills HEENT-head atraumatic and normocephalic, pupils equal and reactive to light, extraocular muscles intact Neck-no lymphadenopathy or thyromegaly, trachea midline Chest-clear to auscultation. No rales, wheezing or rhonchi Cardiac-regular rate and rhythm, normal S1 and S2 Abdomen-normal bowel sounds, no hepatosplenomegaly. Surgical sites are healing without incident Extremities-no cyanosis, clubbing, or edema Neuro-cranial nerves II through XII intact, motor and sensory function within normal limits, strength symmetrical, no focal deficits Psych-normal affect, normal mood Discharge Plan Discharge Items Patient Disposition: Transfer Inpatient Rehab Fac Reason For Visit: FEVER, DIARRHEA Discharge Diagnosis: Colonic intussusception, acute on chronic diastolic CHF , status post laparoscopic right hemicolectomy on April 03 Condition on Discharge: Good Activity: Per Instructions section Lifting: No more than 10 pounds Bathing Comment: may shower; no soaking in tubs/pools x 2 weeks Exercise/Sports: Wait until after follow-up appointment Driving/Machine Use: no driving while on narcotics for pain Non-emergency contact: Primary Care Provider and Surgeon Call non-emergency contact if: your symptoms worsen, your pain is worsening, your pain is concerning for you, you have a fever, your temperature is above 101.5, your wound has increased redness, your wound has increased drainage and your wound pain has increased Follow-up/Referrals: Mike Melissa DO, FACS [Physician] - (please call to schedule follow up in the office in 1 week for ally removal) Jamie Norton DO [Primary Care Provider] - Diet: Heart Healthy and Low Fiber Addtl Attending Provider Instructions: SPECIAL CARE INSTRUCTIONS: * You have ally in place that will need to be removed around 14 days from your surgery. If the incision is not draining any fluid you may leave it open to air. Otherwise you may cover incisions and change daily for comfort/drainage. * You may shower . NO soaking in pools or baths for 2 weeks * No lifting greater than 10lbs. No strenuous exercise until cleared by surgeon. Light walking is accepted. * No driving while taking narcotic pain medication; wait at least 3 days * No drinking alcohol while taking narcotic pain medication * May use Tylenol over the counter for pain as tolerated. Do not exceed 3grams of Tylenol per 24 hours * Expect some swelling and bruising. * Diet- you may resume your regular diet Call your doctor if: * Temperature above 101 degrees, nausea/vomiting, fever/chills * Pain not relieved by pain medicine ordered * There is increased drainage or redness from any incision * You have any unanswered questions or concerns [phone]. FOLLOW UP VISIT: If not already scheduled, please call the office for a follow-up visit. Office Pending Studies at Discharge: Yes Studies:: surgical pathology Stand-Alone Forms: My [facility] Skilled Items Patient informed of condition?: Yes DNR: Yes Discharge Level of Care: Acute rehab Communicable Disease: No Discharge Prognosis: Stable Lines: None Urinary Catheter: No Medications and DC Order Prescriptions: New tramadol 50 mg Tablet 50 mg PO Q4H PRNQty: 0 0RF Continued donepezil 5 mg tablet 5 mg PO HS atorvastatin 20 mg tablet 20 mg PO HS sertraline 50 mg tablet 50 mg PO QAM docusate sodium 100 mg Tablet 100 mg PO DAILY PRN (Reason: cnstipation) omeprazole 40 mg capsule,delayed release(DR/EC) 40 mg PO QAM Eliquis 2.5 mg tablet 2.5 mg PO BID levothyroxine 100 mcg tablet 100 mcg PO QAM famotidine 20 mg tablet 20 mg PO HS loratadine 10 mg Tablet 10 mg PO DAILY melatonin 10 mg Tablet,Chewable 10 mg PO HS furosemide [Lasix] 20 mg tablet 20 mg PO DAILY PRN (Reason: weight gain of 3 lbs) cyanocobalamin (vitamin B-12) [Vitamin B-12] 2,500 mcg Tablet, Sublingual 5,000 mcg SUBLINGUAL DAILY nitroglycerin [Nitrostat] 0.4 mg Tablet, Sublingual 0.4 mg sublingual UD PRN (Reason: Chest Pain) Cranberry 4200mg With Vit C 2 softgel PO DAILY acetaminophen 500 mg Tablet 1,000 mg PO .EVERY 4-6 HR MDD 3g PRN (Reason: Flu Symptoms) lidocaine 4 % Adhesive Patch,Medicated 1 patch TOPICAL DAILY Rx Instructions: on 12 hours off 12 hours ondansetron 4 mg Tablet,Disintegrating 4 mg PO .EVERY 6-8 HOURS PRN (Reason: Nausea And Vomiting) diltiazem HCl 180 mg capsule,extended release 24hr 180 mg PO DAILY Rx Instructions: HOLD FOR SBP LESS THAN 110 hydralazine 25 mg tablet 25 mg PO TID Rx Instructions: HOLD FOR SBP LESS THAN 110 bisacodyl 10 mg Suppository 10 mg NC DAILY PRN (Reason: Constipation) Rx Instructions: AFTER 3 DAYS OF NO BOWEL MOVEMENT ferrous sulfate 325 mg (65 mg iron) Tablet 325 mg PO DAILY metoprolol tartrate 50 mg tablet 50 mg PO BID Rx Instructions: HOLD FOR SBP LESS THAN 110 mirtazapine 7.5 mg tablet 7.5 mg PO HS lutein 10 mg Tablet 0 mg PO DAILY Rx Instructions: Patient takes 2 Lutein Gummies daily strength not specified on MAR menthol-zinc oxide [Calmoseptine] 0.44-20.6 % Ointment 1 applic TOPICAL DAILY PRN (Reason: irritation/breakdown) magnesium oxide 400 mg magnesium tablet 400 mg PO QAM Discharge Orders: Discharge Order (Routine); Ordered 04/10/25 Ordered By: Josemanuel Montoya Admission Data Admit Date/Time: 04/02/25 21:46 Attending Provider: Josemanuel Montoya Admit Provider: Lucille Humphreys Primary Care Provider: Jamie Norton Other Providers: Bonilla Renteria; Mike Melissa Hospital Stay Data Consultations 04/02/25 20:52 ED Decision to Admit Stat 04/02/25 21:30 Consult General Surgery Stat Procedures Performed Operation Date: 04/03/25 07:00 Actual Procedures p Robotic Assisted Laparoscopic Right Hemicolectomy(Right) - Mike Melissa DO, FACS Diagnostic Imagining Performed 04/02/25 17:56 CT Abd and Pelvis [CT abd pelvis IV con only] Stat 04/02/25 21:08 CT abd pelvis oral con only Stat Pending Results Patient Have Any Pending Studies at Discharge: Yes Discharge Instructions Given to Patient (Per Discharging Provider) SPECIAL CARE INSTRUCTIONS: * You have ally in place that will need to be removed around 14 days from your surgery. If the incision is not draining any fluid you may leave it open to air. Otherwise you may cover incisions and change daily for comfort/drainage. * You may shower . NO soaking in pools or baths for 2 weeks * No lifting greater than 10lbs. No strenuous exercise until cleared by surgeon. Light walking is accepted. * No driving while taking narcotic pain medication; wait at least 3 days * No drinking alcohol while taking narcotic pain medication * May use Tylenol over the counter for pain as tolerated. Do not exceed 3grams of Tylenol per 24 hours * Expect some swelling and bruising. * Diet- you may resume your regular diet Call your doctor if: * Temperature above 101 degrees, nausea/vomiting, fever/chills * Pain not relieved by pain medicine ordered * There is increased drainage or redness from any incision * You have any unanswered questions or concerns [phone]. FOLLOW UP VISIT: If not already scheduled, please call the office for a follow-up visit. Office Total Time Total Time Spent Total Time Spent (In Minutes): 45-minute Coding Level of Care Code 83450 INP/OBS DISCH >30 MIN Diagnoses Intussusception, ileocecal K56.1 Acute on chronic diastolic CHF (congestive heart failure) I50.33 Permanent atrial fibrillation I48.21 Diarrhea R19.7
[2025-04-10 13:15] VITALS: BP 154/72; PULSE 116
== END 2025-04-10 14:28 | DRG 329 ==
LOC: ED 17:27 → SUATTDRO 21:46 → EDINP 21:46 → 2S 04-03 15:45

== ENCOUNTER 2025-06-18 10:02 | Inpatient (IN) ==
[2025-06-18 10:46] LABS: Hematocrit (blood only) 39.9 % (37.0-47.0); Hemoglobin 12.5 g/dl (12.0-16.0); Immature Granulocytes # (auto) 0.01 K/uL (0.01-0.20); Immature Granulocytes % (auto) 0.2 %; Mean Corpuscular Hemoglobin 27.2 pg (25.0-34.0); Mean Corpuscular Volume 86.7 fL (80.0-100.0); Platelet Count 153 K/uL (130-400); RDW Standard Deviation 50.4 fL (36.4-46.3); Red Blood Count 4.60 M/uL (4.20-5.40); White Blood Count 5.80 K/ul (4.8-10.8)
[2025-06-18 11:04] LABS: Alanine Aminotransferase 37.0 U/L (7-52); Albumin Globulin Ratio 1.7 (0.9-2); Albumin Level 4.0 gm/dl (3.4-5.0); Alkaline Phosphatase 82.0 U/L (34-104); Anion Gap 5.0 (3-11); Bilirubin,Total 0.6 mg/dl (0.2-1.0); Blood Urea Nitrogen 19.0 mg/dl (6-23); Calcium 9.6 mg/dl (8.6-10.3); Carbon Dioxide 29.0 mmol/L (21-32); Chloride 108.0 mmol/L (98-107); Creatinine Clr Calc Pharmacy 40.9 ml/min; Globulin 2.4 gm/dl (2.5-4.0); Glucose 92.0 mg/dl (70-99(Fasting)); Lipase 10.0 U/L (11-82); Magnesium 2.0 mg/dl (1.7-2.4); Potassium 4.4 mmol/L (3.5-5.1); Sodium 142.0 mmol/L (136-145); Total Protein 6.4 gm/dl (6.0-8.3)
[2025-06-18 11:13] LABS: INR 1.1 (0.9-1.1); Prothrombin Time 11.5 Seconds (9.0-12.0)
[2025-06-18 11:18] LABS: Chlamydia pneumoniae PCR Not Detected (NotDetected); Coronavirus 229E PCR Not Detected (NotDetected); Coronavirus CoV-2 (COVID19)PCR Not Detected (NotDetected); Coronavirus HKU1 PCR Not Detected (NotDetected); Coronavirus NL63 PCR Not Detected (NotDetected); Coronavirus OC43PCR Not Detected (NotDetected); Human Metapneumovirus PCR Not Detected (NotDetected); Parainfluenza Virus 1 PCR Not Detected (NotDetected); Parainfluenza Virus 2 PCR Not Detected (NotDetected); Parainfluenza Virus 3 PCR Not Detected (NotDetected); Parainfluenza Virus 4 PCR Not Detected (NotDetected); Respiratory Syncytial VirusPCR Not Detected (NotDetected); Rhinovirus/Enterovirus PCR Not Detected (NotDetected)
--- NOTE | 2025-06-18 11:37 | XRay Report ---
XR chest 1V portable CLINICAL HISTORY: Chest pain, nonspecific COMPARISON STUDY: 04/10/2025 FINDINGS: Stable pacemaker. Stable cardiomegaly with mild pulmonary vascular congestion. There are sm all bilateral pleural effusions and associated lung base consolidation, mildly increased. No pneumoth orax seen. IMPRESSION: CHF with small pleural effusions/consolidation in the lung bases. ACT 112: Negative or not required by law. Electronically signed by: Mike Mason M.D. 06/18/2025 11:35 AM
--- NOTE | 2025-06-18 12:03 | Emergency Department Note ---
Impression & Plan Acute dyspnea, Chest pain, Acute CHF, Acute UTI (urinary tract infection), Elevated brain natriuretic peptide (BNP) level, Bilateral leg edema ED Provider Note HISTORY OF PRESENT ILLNESS: Patient is an 89-year-old female presenting with shortness of breath and chest pain. Patient reports she has had progressively worsening shortness of breath and a cough over the last 2 weeks. She states that last night while attempting to go to bed she had some substernal chest pain that radiated into her right shoulder. States that she was given 3 nitro and 324 mg of aspirin by staff at her facility. She states that she is chest pain-free this morning. However, she was still having significant shortness of breath at her facility, prompting EMS to be called. On EMS arrival, the patient was found to have saturations of 88% on room air. She was placed on 4 L nasal cannula. Patient was given a [facility] prehospital with EMS. Patient is on Eliquis for history of A-fib. She denies any supplemental oxygen use at baseline. She is not having any chest pain. Denies any abdominal pain, nausea or vomiting. Denies any recent fevers or chills. ROS: as above PHYSICAL EXAM: Constitutional: Patient appears in no acute distress. HENT: Head: Normocephalic and atraumatic. Eyes: EOMI, PERRL Mouth/Throat: Mucous membranes moist. Neck: Trachea midline. Neck supple. Cardiovascular: Irregularly irregular rhythm. No murmurs, rubs or gallops. Intact distal pulses. Pulmonary/Chest: No respiratory distress. Breath sounds clear and equal bilaterally. Decreased breath sounds in the bilateral lung bases. Patient is tachypneic. Abdominal: Abdomen soft, no tenderness, rebound or guarding. Musculoskeletal: No tenderness or deformity noted. +2 pitting edema to the bilateral lower extremities extending to the knees. Skin: Warm and dry. No rash, erythema, pallor or cyanosis Psychiatric: Appropriate mood and affect for situation. Neurological: Alert and keenly responsive. CN II-XII grossly intact, moving all extremities equally and fully. MDM: - Vitals signs showed hypertension. - History obtained via patient. History as above. - Chronic conditions affecting care: hypothyroidism; permanent Afib; pulmonary hypertension; HLD; CHF - Differential diagnoses include, but are not limited to: Congestive heart failure; acute coronary syndrome; COPD/asthma exacerbation; pulmonary edema; pulmonary embolism; pneumonia; pneumothorax; viral syndrome - Order placed for continuous cardiac monitoring. At this time, monitor showed rate of 87 bpm with irregular rhythm, per my interpretation. - External medical records reviewed. Discharge summary dated 04/10/2025 was reviewed. Patient was admitted at that time secondary to an ileocecal intussusception. She underwent a laparoscopic right hemicolectomy on 04/03/2025. - EKG image interpreted by myself showed atrial fibrillation. Rate 81 bpm. QT 330. No acute ischemic changes. - Laboratory workup interpreted by myself showed normal WBC; normal PT/INR; stable electrolytes; normal AST/ALT; normal troponin; normal procalcitonin; elevated BNP (313) - Viral respiratory panel negative - UA ordered - CXR image reviewed interpreted by myself shows bilateral pleural effusion, per my interpretation. Radiology notes CHF with small pleural effusion/consolidations in the bilateral bases. - Patient given 40 mg IV lasix in ER. - Patient was initially on room air in the emergency department. However, she did require supplemental oxygen at 2 L nasal cannula during her stay for work of breathing. - Discussion was had with gearcase assembler about patient's case and need for admission - Hospitalist consulted for admission. Plans to get a CT scan of the chest for PE. He reports if scan is appropriate, will admit to his service. - Patient admitted to [facility] service for further evaluation and management. ASSESSMENT AND PLAN: Diagnosis: Acute CHF exacerbation; bilateral lower extremity edema; chest pain; acute UTI; elevated BNP Plan: Admit Past Med/Surg History Problem List (Updated 06/18/25 @ 14:28 by Yesi Galdamez MD) Bilateral leg edema (Acute) Elevated brain natriuretic peptide (BNP) level (Acute) Acute UTI (urinary tract infection) (Acute) Acute CHF (Acute) Chest pain (Acute) Acute dyspnea (Acute) Acute on chronic diastolic CHF (congestive heart failure) Intussusception, ileocecal Enteritis due to Norovirus Insomnia Gastroenteritis due to norovirus Cognitive impairment Asymptomatic bacteriuria Acute respiratory alkalosis (Acute) Chest pain (Acute) History of arterial occlusion Acute hyperventilation syndrome (Acute) Acute hypoxic respiratory failure Colonic thickening Arterial occlusion, lower extremity (Acute) PND (post-nasal drip) Stroke (Acute) Pericardial effusion Thrombocytopenia Female bladder prolapse Acute metabolic encephalopathy UTI (urinary tract infection) (Acute) Acute diastolic CHF (congestive heart failure) Elevated troponin Hypokalemia (Acute) Anticoagulation therapy not indicated Dizziness Hypothyroidism DVT prophylaxis Insomnia Depression (Chronic) B12 deficiency Peripheral neuropathy (Chronic) 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) Cellulitis of left orbit (Acute) Stomach ulcer (Acute) GERD (gastroesophageal reflux disease) (Chronic) Vertigo (Acute) Weakness (Acute) Medical History (Updated 06/18/25 @ 14:28 by Yesi Galdamez MD) Essential hypertension Permanent atrial fibrillation Presence of permanent cardiac pacemaker Aspiration into lower respiratory tract Periorbital cellulitis of left eye Hyperlipidemia LDL goal <70 Thoracic back pain CVA (cerebral vascular accident) Epidural hematoma Weight loss, unintentional Tricuspid regurgitation Tachy-jazmine syndrome Pulmonary hypertension Dyslipidemia Cerebrovascular disease Benign hypertension Aortic regurgitation Anxiety disorder Headache Surgical History (Updated 05/03/25 @ 00:07 by Uma Dorman) Status post laparoscopic right hemicolectomy (04/03/25) Robotic assisted right hemicolectomy for intussusception, , 03 April 2025 H/O cervical spine surgery "cervical decompression with evacuation of cervical epidural hematoma 09/22/2012" S/P tonsillectomy H/O: hysterectomy History of bilateral tubal ligation History of appendectomy Family History Other Family history non-contributory Social History Smoking Status: Never smoker Second Hand Exposure: No; Do You Dip or Chew Tobacco: No; Hx Alcohol Use: No Hx Substance Use: No Preferred Language: Faroese Communication Ability: Effective Residential Coordinator Required: No Beliefs That Will Affect Care: None marital status: / Current Living Situation: Snf Current Living Situation Comment: [facility] Feels Safe at Home: Yes Assistive Devices: Walker and Wheelchair Allergies Allergies Allergy/AdvReac Type Severity Reaction Status Date / Time oxycodone AdvReac Intermediate HALLUCINATI Verified 06/06/25 12:59 ONS morphine AdvReac Unknown DELIRIUM Verified 06/06/25 12:59 Home Meds Home Medications Medication Instructions Recorded Confirmed omeprazole 40 mg capsule,delayed 40 mg PO QAM 05/06/18 06/18/25 release atorvastatin 20 mg tablet 20 mg PO HS 11/16/18 06/18/25 docusate sodium 100 mg tablet 100 mg PO DAILY PRN cnstipation 11/16/18 06/18/25 sertraline 50 mg tablet 50 mg PO QAM 11/16/18 06/18/25 donepezil 5 mg tablet 5 mg PO HS 02/09/22 06/18/25 magnesium oxide 400 mg PO QAM 05/13/24 06/18/25 apixaban 2.5 mg tablet (Eliquis) 2.5 mg PO BID 08/31/24 06/18/25 famotidine 20 mg tablet 20 mg PO HS 08/31/24 06/18/25 levothyroxine 100 mcg tablet 100 mcg PO QAM 08/31/24 06/18/25 Cranberry Plus Vitamin C 2 softgel PO DAILY ##0 10/10/24 06/18/25 acetaminophen 500 mg tablet 1,000 mg PO DAILY PRN Flu Symptoms 10/10/24 06/18/25 cyanocobalamin (vitamin B-12) 5,000 mcg sublingual DAILY 10/10/24 06/18/25 2,500 mcg sublingual tablet (Vitamin B-12) furosemide 20 mg tablet (Lasix) 20 mg PO DAILY PRN weight gain of 10/10/24 06/18/25 3 lbs lidocaine 4 % topical patch 1 patch topical DAILY 10/10/24 06/18/25 loratadine 10 mg tablet 10 mg PO DAILY 10/10/24 06/18/25 melatonin 10 mg chewable tablet 10 mg PO HS 10/10/24 06/18/25 nitroglycerin 0.4 mg sublingual 0.4 mg sublingual UD PRN Chest Pain 10/10/24 06/18/25 tablet (Nitrostat) ondansetron 4 mg disintegrating 4 mg PO .EVERY 6-8 HOURS PRN 10/10/24 06/18/25 tablet Nausea And Vomiting bisacodyl 10 mg rectal suppository 10 mg WI DAILY PRN Constipation 04/02/25 06/18/25 diltiazem HCl 180 mg 180 mg PO DAILY 04/02/25 06/18/25 capsule,extended release 24 hr ferrous sulfate 325 mg (65 mg 325 mg PO DAILY 04/02/25 06/18/25 iron) tablet hydralazine 25 mg tablet 25 mg PO TID 04/02/25 06/18/25 lutein 10 mg tablet 0 mg PO DAILY 04/02/25 06/18/25 menthol 0.44 %-zinc oxide 20.6 % 1 applic topical DAILY PRN 04/02/25 06/18/25 topical ointment (Calmoseptine) irritation/breakdown metoprolol tartrate 50 mg tablet 100 mg PO BID 04/02/25 06/18/25 mirtazapine 7.5 mg tablet 15 mg PO HS 04/02/25 06/18/25 acetaminophen 500 mg tablet 1,000 mg PO BID 06/18/25 06/18/25 fluticasone fur. 100 mcg-umeclid 1 inh inhalation DAILY 06/18/25 06/18/25 62.5 mcg-vilant 25 mcg inhalat.powder (Trelegy Ellipta) melatonin 5 mg chewable tablet 5 mg PO HS 06/18/25 06/18/25 Results & Data (ED) Vital Signs Vital Signs - 24 hr 06/18/25 10:20 06/18/25 10:20 06/18/25 10:20 Temperature 36.5 C Temperature Source Oral Pulse Rate 82 Pulse Rate [Apical] Pulse Rhythm Regular Pulse Rhythm [Apical] Pulse Strength Normal Pulse Strength [Apical] Respiratory Rate 22 Respiratory Effort / Characteristics Non-Labored Spontaneous Non-Labored Spontaneous Non-Labored Spontaneous Respiratory Depth Normal Normal Normal Respiratory Pattern Regular Regular Blood Pressure 202/93 H Blood Pressure [Left Arm] Blood Pressure Mean 129 Blood Pressure Mean [Left Arm] Blood Pressure Position Lying Blood Pressure Position [Left Arm] Pulse Oximetry 91 Oxygen Delivery Method Room Air Room Air Room Air Oxygen Flow Rate Sepsis Recent Fever Within 48 Hours No Sepsis New/Unexplained Change in Mental Status No Sepsis Action Taken by Nursing No Action Required 06/18/25 10:20 06/18/25 10:20 06/18/25 10:21 Temperature 36.5 C Temperature Source Oral Pulse Rate 85 Pulse Rate [Apical] 82 Pulse Rhythm Regular Pulse Rhythm [Apical] Regular Pulse Strength Pulse Strength [Apical] Normal Respiratory Rate 22 22 Respiratory Effort / Characteristics Non-Labored Spontaneous Respiratory Depth Normal Respiratory Pattern Regular Blood Pressure Blood Pressure [Left Arm] 202/93 H Blood Pressure Mean Blood Pressure Mean [Left Arm] 129 Blood Pressure Position Blood Pressure Position [Left Arm] Lying Pulse Oximetry 94 94 94 Oxygen Delivery Method Room Air Room Air Room Air Oxygen Flow Rate Sepsis Recent Fever Within 48 Hours Sepsis New/Unexplained Change in Mental Status Sepsis Action Taken by Nursing 06/18/25 10:30 06/18/25 12:00 06/18/25 14:00 Temperature Temperature Source Pulse Rate 87 Pulse Rate [Apical] 90 87 Pulse Rhythm Pulse Rhythm [Apical] Regular Regular Pulse Strength Pulse Strength [Apical] Normal Normal Respiratory Rate 33 H 29 H Respiratory Effort / Characteristics Non-Labored Spontaneous Non-Labored Spontaneous Respiratory Depth Normal Normal Respiratory Pattern Regular Regular Blood Pressure Blood Pressure [Left Arm] 200/108 H 200/88 H Blood Pressure Mean Blood Pressure Mean [Left Arm] 138 125 Blood Pressure Position Blood Pressure Position [Left Arm] Lying Sitting Pulse Oximetry 94 98 Oxygen Delivery Method Room Air Nasal Cannula Oxygen Flow Rate 2 Sepsis Recent Fever Within 48 Hours Sepsis New/Unexplained Change in Mental Status Sepsis Action Taken by Nursing Laboratory Data 06/18/25 10:11 06/18/25 10:11 Lab Results 06/18/25 06/18/25 06/18/25 Range/Units 10:11 10:15 13:05 WBC 5.80 (4.8-10.8) K/ul RBC 4.60 (4.20-5.40) M/uL Hgb 12.5 (12.0-16.0) g/dl Hct 39.9 (37.0-47.0) % MCV 86.7 (80.0-100.0) fL MCH 27.2 (25.0-34.0) pg MCHC 31.3 L (32.0-36.0) g/dL RDW Std Deviation 50.4 H (36.4-46.3) fL RDW Coeff of Alfredo 16.0 H (11.5-14.5) % Plt Count 153 (130-400) K/uL MPV 11.7 (9.4-12.4) fL Immature Gran % (Auto) 0.2 % Neut % (Auto) 64.2 % Lymph % (Auto) 23.6 % [place] % (Auto) 9.7 % Eos % (Auto) 1.6 % Baso % (Auto) 0.7 % Neut # (Auto) 3.73 (1.40-6.50) K/uL Lymph # (Auto) 1.37 (1.20-3.40) K/uL [place] # (Auto) 0.56 (0.11-0.59) K/uL Eos # (Auto) 0.09 (0.00-0.50) K/uL Baso # (Auto) 0.04 (0.00-0.20) K/uL Immature Gran # (Auto) 0.01 (0.01-0.20) K/uL PT 11.5 (9.0-12.0) Seconds INR 1.1 (0.9-1.1) Sodium 142 (136-145) mmol/L Potassium 4.4 (3.5-5.1) mmol/L Chloride 108 H (98-107) mmol/L Carbon Dioxide 29 (21-32) mmol/L Anion Gap 5 (3-11) BUN 19 (6-23) mg/dl Creatinine 0.77 (0.6-1.2) mg/dl Est Cr Clr Drug Dosing 40.9 ml/min eGFR 74.15 BUN/Creatinine Ratio 24.7 H (10-20) Glucose 92 (70-99(Fasting)) mg/dl Calcium 9.6 (8.6-10.3) mg/dl Magnesium 2.0 (1.7-2.4) mg/dl Total Bilirubin 0.6 (0.2-1.0) mg/dl AST 37 (13-39) U/L ALT 37 (7-52) U/L Alkaline Phosphatase 82 (34-104) U/L Troponin I High Sens 9.2 (0-14) pg/ml B-Natriuretic Peptide 313 H (0-100) pg/ml Total Protein 6.4 (6.0-8.3) gm/dl Albumin 4.0 (3.4-5.0) gm/dl Globulin 2.4 L (2.5-4.0) gm/dl Albumin/Globulin Ratio 1.7 (0.9-2) Lipase 10 L (11-82) U/L Procalcitonin 0.02 (0-0.5) ng/ml Urine Color Yellow Urine Appearance Clear (Clear) Urine pH 8.0 H (4.5-7.5) Ur Specific [place] 1.008 (1.000-1.030) Urine Protein Negative (Negative) Urine Glucose (UA) Negative (Negative) Urine Ketones Negative (Negative) Urine Blood Negative (Negative) Urine Nitrite Positive A (Negative) Urine Bilirubin Negative (Negative) Urine Urobilinogen Negative (Negative) Ur Leukocyte Esterase Trace H (Negative) Urine WBC (Auto) 0-5 (0-5) /hpf Urine RBC (Auto) 0-2 (0-2) /hpf U Hyaline Cast (Auto) 0-2 (0-2) /lpf U Epithel Cells (Auto) 0-2 (0-2) /hpf Urine Bacteria (Auto) 4+ H (None Seen) Urine Comment Adenovirus (PCR) Not Detected (NotDetected) B. pertussis DNA (PCR) Not Detected (NotDetected) B.parapertussis DNA PCR Not Detected (NotDetected) C. pneumoniae DNA (PCR) Not Detected (NotDetected) Coronavirus OC43 (PCR) Not Detected (NotDetected) Coronavirus HKU1 (PCR) Not Detected (NotDetected) Coronavirus 229E (PCR) Not Detected (NotDetected) SARS-CoV-2 (PCR) Not Detected (NotDetected) Coronavirus NL63 (PCR) Not Detected (NotDetected) Human Metapneumovir PCR Not Detected (NotDetected) Influenza Type A (PCR) Not Detected (NotDetected) Influenza Type B (PCR) Not Detected (NotDetected) M. pneumoniae (PCR) Not Detected (NotDetected) Parainfluenza 1 (PCR) Not Detected (NotDetected) Parainfluenza 2 (PCR) Not Detected (NotDetected) Parainfluenza 3 (PCR) Not Detected (NotDetected) Parainfluenza 4 (PCR) Not Detected (NotDetected) RSV (PCR) Not Detected (NotDetected) Entero/Rhino (PCR) Not Detected (NotDetected) Administered Medications Discontinued Medications Furosemide (Furosemide 40 Mg/4 Ml Vial) 40 mg IV ONE ONE Stop: 06/18/25 11:56 Last Admin: 06/18/25 12:14 Dose: 40 mg Documented By: ALIYA Ioversol (Optiray 320 125ml) 112 ml IV ONCE ONE Stop: 06/18/25 13:14 Last Admin: 06/18/25 13:13 Dose: 112 ml Documented By: MADISON Imaging Data Radiologist's Impression: Chest X-Ray 06/18/25 10:21 XR chest 1V portable CLINICAL HISTORY: Chest pain, nonspecific COMPARISON STUDY: 04/10/2025 FINDINGS: Stable pacemaker. Stable cardiomegaly with mild pulmonary vascular congestion. There are small bilateral pleural effusions and associated lung base consolidation, mildly increased. No pneumothorax seen. IMPRESSION: CHF with small pleural effusions/consolidation in the lung bases. ACT 112: Negative or not required by law. Electronically signed by: Mike Mason M.D. 06/18/2025 11:35 AM Chest CTA 06/18/25 12:33 CT angio chest PE protocol CT DOSE: 261.74 mGy.cm HISTORY: 89 years-old Female with PE/Effusion/CHF. Acute shortness of breath TECHNIQUE: Multiple CTA images of the chest were obtained after the intravenous administration of 112 ml Optiray. Coronal and sagittal MIPS were obtained from the axial data set and were submitted for review. All measurements were obtained according to NASCET criteria. A dose lowering technique was utilized adhering to the principles of ALARA. COMPARISON: Chest radiograph same day, CTA chest 10/10/2024 FINDINGS: CTA: Moderate to marked cardiomegaly. Small pericardial effusion. Left subclavian pacer. Moderate to extensive coronary artery calcifications. Atherosclerosis of the aorta with fusiform dilation of the ascending segment measuring 4.0 x 4.0 cm. Dilation of the main pulmonary artery, 3.6 cm. No central pulmonary emboli identified. There is suboptimal evaluation of the segmental and subsegmental branches secondary to contrast bolus timing and respiratory motion. CT CHEST: 11 mm hypodense left-sided thyroid nodule. Partially calcified mediastinal lymph nodes. Moderate left with moderate to large right pleural effusions. No pneumothorax. Intralobular septal thickening with dependent bibasilar consolidation. Mucous plugging is most pronounced in the left lower lobe. No acute upper abdominal abnormality. Mild generalized body wall edema. No acute fracture. IMPRESSION: 1. No pulmonary emboli identified. 2. Cardiomegaly with interstitial pulmonary edema and right greater than left layering pleural effusions. 3. Left lower lobe mucous plugging with dependent bibasilar consolidation/atelectasis. 4. Mild fusiform dilation of the ascending thoracic aorta, 4.0 x 4.0 cm. 5. Suggestion of pulmonary arterial hypertension. ACT 112: Negative or not required by law. The above report was generated using voice recognition software. It may contain grammatical, syntax or spelling errors. Electronically signed by: Victorino Cuadra M.D. 06/18/2025 1:32 PM Discharge Plan Visit Data Chief Complaint: Chest Pain ED Provider: Yesi Galdamez Discharge Problem: Acute dyspnea, Chest pain, Acute CHF, Acute UTI (urinary tract infection), Elevated brain natriuretic peptide (BNP) level, Bilateral leg edema Patient Disposition: Admitted As Inpatient Condition: Fair Forms Stand Alone Forms: [facility] Prescriptions Prescriptions: No Action donepezil 5 mg tablet 5 mg PO HS atorvastatin 20 mg tablet 20 mg PO HS sertraline 50 mg tablet 50 mg PO QAM docusate sodium 100 mg Tablet 100 mg PO DAILY PRN (Reason: cnstipation) omeprazole 40 mg capsule,delayed release(DR/EC) 40 mg PO QAM Eliquis 2.5 mg tablet 2.5 mg PO BID levothyroxine 100 mcg tablet 100 mcg PO QAM famotidine 20 mg tablet 20 mg PO HS loratadine 10 mg Tablet 10 mg PO DAILY melatonin 10 mg Tablet,Chewable 10 mg PO HS furosemide [Lasix] 20 mg tablet 20 mg PO DAILY PRN (Reason: weight gain of 3 lbs) cyanocobalamin (vitamin B-12) [Vitamin B-12] 2,500 mcg Tablet, Sublingual 5,000 mcg SUBLINGUAL DAILY nitroglycerin [Nitrostat] 0.4 mg Tablet, Sublingual 0.4 mg sublingual UD PRN (Reason: Chest Pain) Cranberry Plus Vitamin C 2 softgel PO DAILY Qty: 0 Rx Instructions: 4200mg acetaminophen 500 mg Tablet 1,000 mg PO DAILY MDD 3g PRN (Reason: Flu Symptoms) lidocaine 4 % Adhesive Patch,Medicated 1 patch TOPICAL DAILY Rx Instructions: on 12 hours off 12 hours ondansetron 4 mg Tablet,Disintegrating 4 mg PO .EVERY 6-8 HOURS PRN (Reason: Nausea And Vomiting) diltiazem HCl 180 mg capsule,extended release 24hr 180 mg PO DAILY Rx Instructions: HOLD FOR SBP LESS THAN 110 hydralazine 25 mg tablet 25 mg PO TID Rx Instructions: HOLD FOR SBP LESS THAN 110 bisacodyl 10 mg Suppository 10 mg WI DAILY PRN (Reason: Constipation) Rx Instructions: AFTER 3 DAYS OF NO BOWEL MOVEMENT ferrous sulfate 325 mg (65 mg iron) Tablet 325 mg PO DAILY metoprolol tartrate 50 mg tablet 100 mg PO BID mirtazapine 7.5 mg tablet 15 mg PO HS lutein 10 mg Tablet 0 mg PO DAILY Rx Instructions: Patient takes 2 Lutein Gummies daily strength not specified on MAR menthol-zinc oxide [Calmoseptine] 0.44-20.6 % Ointment 1 applic TOPICAL DAILY PRN (Reason: irritation/breakdown) acetaminophen [Tylenol Ex Str Rapid Release] 500 mg Tablet 1,000 mg PO BID melatonin 5 mg Tablet,Chewable 5 mg PO HS Rx Instructions: take with 10mg to equal 15mg dose Trelegy Ellipta 100-62.5-25 mcg blister with device 1 inh INHALATION DAILY magnesium oxide 400 mg magnesium tablet 400 mg PO QAM Referrals Referrals: Jamie Norton DO [Primary Care Provider] -
[2025-06-18] MEDS: FUROSEMIDE 40 MG/4 ML VIAL IV ONE (12:14)
--- NOTE | 2025-06-18 12:33 | History & Physical Report ---
Date of Service June 18, 2025 Assessment & Plan (1) Acute on chronic diastolic CHF (congestive heart failure): (2) Insomnia: (3) Cognitive impairment: (4) Chest pain: (5) History of arterial occlusion: (6) Acute hypoxic respiratory failure: (7) Stroke: (8) Pericardial effusion: (9) Essential hypertension: (10) Permanent atrial fibrillation: (11) Tachy-jazmine syndrome: (12) Pulmonary hypertension: (13) Aortic regurgitation: Plan #Hypertensive urgency - Markedly elevated blood pressures. It is not unusual for have a systolic over 200s when she is stressed out or in pain. She takes hydralazine on a regular basis for labile blood pressures. -Acute apparently worse than average CHF, continue hydralazine on a as needed basis initially. Depending on workup for pleural effusion pericardial effusion below we may need other agents such as labetalol, Vasotec, nitroglycerin depending on findings -Admit PCU to start #acute on chronic hypoxemic respiratory failure #new pleural effusion - Moderate pleural effusion on CT, no significant pericardial effusion. Likely cause of the predominance of her symptoms. - Currently on Eliquis for A-fib and for previous arterial occlusion - Will hold Eliquis, start heparin low-dose weight-based, consultation of pulmonology versus interventional radiology for thoracentesis likely in 1-2 days - Supportive cares otherwise as noted below #CHF/HFpEF #chest pain #History of pericardial effusion #Hx of pulmonary hypertension -Known history of pericardial effusion, new pleural effusions on chest x-ray today, recent 2-3-week history of fairly abrupt onset severe lower extremity edema anasarca for which they have been diuresing her at [facility] - presentation suggestive of worsening biventricular failure - Reported dry weight is 104 pounds. She is been well above that recently. - Admit PCU as above, - IV Lasix, 20mg iv bid17, goal diuresis 2-3 L in the first 24 hours. - CT pulmonary embolus from to quantify pleural effusions, vasculature givens pronounced atherosclerosis noted on x-ray, evaluate for pericardial effusion - Echocardiogram on admission depending on findings of CT as above - Telemetry monitoring, serial troponins - Daily weight #Atrial fibrillation #Status post pacemaker placement - Recent visit for pacemaker interrogation was within normal limits. CHF/HFpEF as above - Continue Eliquis - Telemetry monitoring #Diffuse Vascular Disease #Lower extremity arterial occlusion - Continue Eliquis, noted and flown to [place] in 2023. No recurrent or changing symptoms - Serial troponin, tele monitoring, secondary prevention #History of ÓSCAR - Had previously been on CPAP/BiPAP but "could not get the masks to work so has not used it for quite some time" - Consult RT, given increased work of breathing poor sleep trial of BiPAP initially did give her some relief from respiratory distress #Hypertension -On diltiazem, furosemide, hydralazine 3 times daily #Hypothyroidism - Check TSH on admit #FEN - Cardiac diet #CODE STATUS - DNR/DNI per her wishes. She is okay with BiPAP on as needed basis no shocks or other resuscitative interventions History of Present Illness Chief Complaint: Shortness of breath Primary Care Provider: Jamie Norton DO 89-year-old female resident of [facility] history of HFpEF, permanent atrial fibrillation, diffuse vascular disease, stroke, chronic hypoxemic respiratory failure, hypertension, hyperlipidemia, hypothyroidism, ÓSCAR presents to the emergency department with acute worsening of subacute shortness of breath for the last several weeks. According the patient and family present at the bedside about 2-3 weeks ago she had a fairly abrupt and severe bout of lower extremity edema. She was placed on Lasix and had some gradual improvement but since that episode has had persistent congestion and cough treated mostly with Mucinex but is been unrelenting. Over the last 24-36 hours it has acutely worsened. She says she has not slept in 2 days. Unable to lie flat. Cough has been nonproductive but congestive. She is quite dyspneic. She was previously on oxygen intermittently but has not had this for quite some time. She also previously diagnosed with sleep apnea but has not used a CPAP machine as it was never consistently tolerated. Otherwise she had a period of chest pain last night this substernal in nature since resolved. Initial evaluation emergency department consistent with CHF/volume overload. Blood pressure noted to be markedly elevated which is not unusual for stressful episodes per her family. She was referred for admission for hypertensive urgency in the setting of CHF, acute on chronic hypoxic respiratory failure. Further workup and evaluation. Allergies Allergy/AdvReac Type Severity Reaction Status Date / Time oxycodone AdvReac Intermediate HALLUCINATI Verified 06/06/25 12:59 ONS morphine AdvReac Unknown DELIRIUM Verified 06/06/25 12:59 Home Medications Medication Instructions Recorded Confirmed Type omeprazole 40 mg capsule,delayed 40 mg PO QAM 05/06/18 06/18/25 History release atorvastatin 20 mg tablet 20 mg PO HS 11/16/18 06/18/25 History docusate sodium 100 mg tablet 100 mg PO DAILY PRN cnstipation 11/16/18 06/18/25 History sertraline 50 mg tablet 50 mg PO QAM 11/16/18 06/18/25 History donepezil 5 mg tablet 5 mg PO HS 02/09/22 06/18/25 History magnesium oxide 400 mg PO QAM 05/13/24 06/18/25 History apixaban 2.5 mg tablet (Eliquis) 2.5 mg PO BID 08/31/24 06/18/25 History famotidine 20 mg tablet 20 mg PO HS 08/31/24 06/18/25 History levothyroxine 100 mcg tablet 100 mcg PO QAM 08/31/24 06/18/25 History Cranberry Plus Vitamin C 2 softgel PO DAILY ##0 10/10/24 06/18/25 History acetaminophen 500 mg tablet 1,000 mg PO DAILY PRN Flu Symptoms 10/10/24 06/18/25 History cyanocobalamin (vitamin B-12) 5,000 mcg sublingual DAILY 10/10/24 06/18/25 History 2,500 mcg sublingual tablet (Vitamin B-12) furosemide 20 mg tablet (Lasix) 20 mg PO DAILY PRN weight gain of 10/10/24 06/18/25 History 3 lbs lidocaine 4 % topical patch 1 patch topical DAILY 10/10/24 06/18/25 History loratadine 10 mg tablet 10 mg PO DAILY 10/10/24 06/18/25 History melatonin 10 mg chewable tablet 10 mg PO HS 10/10/24 06/18/25 History nitroglycerin 0.4 mg sublingual 0.4 mg sublingual UD PRN Chest Pain 10/10/24 06/18/25 History tablet (Nitrostat) ondansetron 4 mg disintegrating 4 mg PO .EVERY 6-8 HOURS PRN 10/10/24 06/18/25 History tablet Nausea And Vomiting bisacodyl 10 mg rectal suppository 10 mg AK DAILY PRN Constipation 04/02/25 06/18/25 History diltiazem HCl 180 mg 180 mg PO DAILY 04/02/25 06/18/25 History capsule,extended release 24 hr ferrous sulfate 325 mg (65 mg 325 mg PO DAILY 04/02/25 06/18/25 History iron) tablet hydralazine 25 mg tablet 25 mg PO TID 04/02/25 06/18/25 History lutein 10 mg tablet 0 mg PO DAILY 04/02/25 06/18/25 History menthol 0.44 %-zinc oxide 20.6 % 1 applic topical DAILY PRN 04/02/25 06/18/25 History topical ointment (Calmoseptine) irritation/breakdown metoprolol tartrate 50 mg tablet 100 mg PO BID 04/02/25 06/18/25 History mirtazapine 7.5 mg tablet 15 mg PO HS 04/02/25 06/18/25 History acetaminophen 500 mg tablet 1,000 mg PO BID 06/18/25 06/18/25 History fluticasone fur. 100 mcg-umeclid 1 inh inhalation DAILY 06/18/25 06/18/25 History 62.5 mcg-vilant 25 mcg inhalat.powder (Trelegy Ellipta) melatonin 5 mg chewable tablet 5 mg PO HS 06/18/25 06/18/25 History Past Med/Surg History Problem List (Updated 06/18/25 @ 14:28 by Yesi Galdamez MD) Bilateral leg edema (Acute) Elevated brain natriuretic peptide (BNP) level (Acute) Acute UTI (urinary tract infection) (Acute) Acute CHF (Acute) Chest pain (Acute) Acute dyspnea (Acute) Acute on chronic diastolic CHF (congestive heart failure) Intussusception, ileocecal Enteritis due to Norovirus Insomnia Gastroenteritis due to norovirus Cognitive impairment Asymptomatic bacteriuria Acute respiratory alkalosis (Acute) Chest pain (Acute) History of arterial occlusion Acute hyperventilation syndrome (Acute) Acute hypoxic respiratory failure Colonic thickening Arterial occlusion, lower extremity (Acute) PND (post-nasal drip) Stroke (Acute) Pericardial effusion Thrombocytopenia Female bladder prolapse Acute metabolic encephalopathy UTI (urinary tract infection) (Acute) Acute diastolic CHF (congestive heart failure) Elevated troponin Hypokalemia (Acute) Anticoagulation therapy not indicated Dizziness Hypothyroidism DVT prophylaxis Insomnia Depression (Chronic) B12 deficiency Peripheral neuropathy (Chronic) 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) Cellulitis of left orbit (Acute) Stomach ulcer (Acute) GERD (gastroesophageal reflux disease) (Chronic) Vertigo (Acute) Weakness (Acute) Medical History (Updated 06/18/25 @ 14:28 by Yesi Galdamez MD) Essential hypertension Permanent atrial fibrillation Presence of permanent cardiac pacemaker Aspiration into lower respiratory tract Periorbital cellulitis of left eye Hyperlipidemia LDL goal <70 Thoracic back pain CVA (cerebral vascular accident) Epidural hematoma Weight loss, unintentional Tricuspid regurgitation Tachy-jazmine syndrome Pulmonary hypertension Dyslipidemia Cerebrovascular disease Benign hypertension Aortic regurgitation Anxiety disorder Headache Surgical History (Updated 05/03/25 @ 00:07 by Uma Dorman) Status post laparoscopic right hemicolectomy (04/03/25) Robotic assisted right hemicolectomy for intussusception, 03 April 2025 H/O cervical spine surgery "cervical decompression with evacuation of cervical epidural hematoma 09/22/2012" S/P tonsillectomy H/O: hysterectomy History of bilateral tubal ligation History of appendectomy Family History Other Family history non-contributory Social History Smoking Status: Never smoker Second Hand Exposure: No; Do You Dip or Chew Tobacco: No; Hx Alcohol Use: No Hx Substance Use: No Preferred Language: Hebrew Communication Ability: Effective Black Oxide Operator Required: No Beliefs That Will Affect Care: None marital status: / Current Living Situation: Assisted Current Living Situation Comment: [facility] Feels Safe at Home: Yes Assistive Devices: Walker and Wheelchair Review of Systems Review of Systems: See HPI otherwise full 10 point review of systems negative Physical Exam Physical Exam: General: A&Ox3. NAD. Cooperative. HEENT: Atraumatic, normocephalic. Vision and hearing grossly intact. Pupils equal and reactive to light, sclera clear and anicteric Neck: Jugular venous pulse distended to the level of the mandible Pulm: Decreased breath sounds in the right base, fine crackles at the bases on posterior examination, otherwise minimal wheezing, good air movement in the apices bilaterally Cardiac: tachycardic. 2/6 MARTINE at the LUSB, radial pulses intact and symmetrical. Abdominal: Nontender, nondistended, soft. BS present. Ext: 1+ edema right greater than left to the level of the knee, Moves all extremities equally NEURO: A&O as above, no focal deficits Skin: warm, moist, No pallor or discoloration Results & Data Results & Data Vital Signs (Past 12 Hours) Vital Signs Temp Pulse Pulse Resp BP BP Pulse Ox 06/18/25 12:00 90 33 H 200/108 H 94 06/18/25 10:30 87 06/18/25 10:21 85 22 94 06/18/25 10:20 36.5 C 82 22 202/93 H 94 06/18/25 10:20 94 06/18/25 10:20 36.5 C 82 22 202/93 H 91 06/18/25 10:20 06/18/25 10:20 O2 Del Method 06/18/25 12:00 Room Air 06/18/25 10:30 06/18/25 10:21 Room Air 06/18/25 10:20 Room Air 06/18/25 10:20 Room Air 06/18/25 10:20 Room Air 06/18/25 10:20 Room Air 06/18/25 10:20 Room Air Laboratory Results 06/18/25 06/18/25 10:15 10:11 WBC 5.80 RBC 4.60 Hgb 12.5 Hct 39.9 MCV 86.7 MCH 27.2 MCHC 31.3 L RDW Std Deviation 50.4 H RDW Coeff of Alfredo 16.0 H Plt Count 153 MPV 11.7 Immature Gran % (Auto) 0.2 Neut % (Auto) 64.2 Lymph % (Auto) 23.6 Larue % (Auto) 9.7 Eos % (Auto) 1.6 Baso % (Auto) 0.7 Neut # (Auto) 3.73 Lymph # (Auto) 1.37 Larue # (Auto) 0.56 Eos # (Auto) 0.09 Baso # (Auto) 0.04 Immature Gran # (Auto) 0.01 PT 11.5 INR 1.1 Sodium 142 Potassium 4.4 Chloride 108 H Carbon Dioxide 29 Anion Gap 5 BUN 19 Creatinine 0.77 Est Cr Clr Drug Dosing 40.9 eGFR 74.15 BUN/Creatinine Ratio 24.7 H Glucose 92 Calcium 9.6 Magnesium 2.0 Total Bilirubin 0.6 AST 37 ALT 37 Alkaline Phosphatase 82 Troponin I High Sens 9.2 B-Natriuretic Peptide 313 H Total Protein 6.4 Albumin 4.0 Globulin 2.4 L Albumin/Globulin Ratio 1.7 Lipase 10 L Procalcitonin 0.02 Adenovirus (PCR) Not Detected B. pertussis DNA (PCR) Not Detected B.parapertussis DNA PCR Not Detected C. pneumoniae DNA (PCR) Not Detected Coronavirus OC43 (PCR) Not Detected Coronavirus HKU1 (PCR) Not Detected Coronavirus 229E (PCR) Not Detected SARS-CoV-2 (PCR) Not Detected Coronavirus NL63 (PCR) Not Detected Human Metapneumovir PCR Not Detected Influenza Type A (PCR) Not Detected Influenza Type B (PCR) Not Detected M. pneumoniae (PCR) Not Detected Parainfluenza 1 (PCR) Not Detected Parainfluenza 2 (PCR) Not Detected Parainfluenza 3 (PCR) Not Detected Parainfluenza 4 (PCR) Not Detected RSV (PCR) Not Detected Entero/Rhino (PCR) Not Detected Diagnostic Findings Chest X-Ray 06/18/25 10:21 XR chest 1V portable CLINICAL HISTORY: Chest pain, nonspecific COMPARISON STUDY: 04/10/2025 FINDINGS: Stable pacemaker. Stable cardiomegaly with mild pulmonary vascular congestion. There are small bilateral pleural effusions and associated lung base consolidation, mildly increased. No pneumothorax seen. IMPRESSION: CHF with small pleural effusions/consolidation in the lung bases. ACT 112: Negative or not required by law. Electronically signed by: Mike Mason M.D. 06/18/2025 11:35 AM Chest X-Ray 06/18/25 10:21 XR chest 1V portable CLINICAL HISTORY: Chest pain, nonspecific COMPARISON STUDY: 04/10/2025 FINDINGS: Stable pacemaker. Stable cardiomegaly with mild pulmonary vascular congestion. There are small bilateral pleural effusions and associated lung base consolidation, mildly increased. No pneumothorax seen. IMPRESSION: CHF with small pleural effusions/consolidation in the lung bases. ACT 112: Negative or not required by law. Electronically signed by: Mike Mason M.D. 06/18/2025 11:35 AM Chest CTA 06/18/25 12:33 CT angio chest PE protocol CT DOSE: 261.74 mGy.cm HISTORY: 89 years-old Female with PE/Effusion/CHF. Acute shortness of breath TECHNIQUE: Multiple CTA images of the chest were obtained after the intravenous administration of 112 ml Optiray. Coronal and sagittal MIPS were obtained from the axial data set and were submitted for review. All measurements were obtained according to NASCET criteria. A dose lowering technique was utilized adhering to the principles of ALARA. COMPARISON: Chest radiograph same day, CTA chest 10/10/2024 FINDINGS: CTA: Moderate to marked cardiomegaly. Small pericardial effusion. Left subclavian pacer. Moderate to extensive coronary artery calcifications. Atherosclerosis of the aorta with fusiform dilation of the ascending segment measuring 4.0 x 4.0 cm. Dilation of the main pulmonary artery, 3.6 cm. No central pulmonary emboli identified. There is suboptimal evaluation of the segmental and subsegmental branches secondary to contrast bolus timing and respiratory motion. CT CHEST: 11 mm hypodense left-sided thyroid nodule. Partially calcified mediastinal lymph nodes. Moderate left with moderate to large right pleural effusions. No pneumothorax. Intralobular septal thickening with dependent bibasilar consolidation. Mucous plugging is most pronounced in the left lower lobe. No acute upper abdominal abnormality. Mild generalized body wall edema. No acute fracture. IMPRESSION: 1. No pulmonary emboli identified. 2. Cardiomegaly with interstitial pulmonary edema and right greater than left layering pleural effusions. 3. Left lower lobe mucous plugging with dependent bibasilar consolidation/atelectasis. 4. Mild fusiform dilation of the ascending thoracic aorta, 4.0 x 4.0 cm. 5. Suggestion of pulmonary arterial hypertension. ACT 112: Negative or not required by law. The above report was generated using voice recognition software. It may contain grammatical, syntax or spelling errors. Electronically signed by: Victorino Cuadra M.D. 06/18/2025 1:32 PM ECG Additional Comments: Atrial fibrillation with occasional ventricular paced complexes, cannot rule out inferolateral ischemia PG Care Time/CCT Total # of Minutes Spent Total Time Spent with Patient: Total time spent is greater than 50% in coordination of care (as documented) at patient's floor/unit and/or counseling patient: Coding Level of Care Code 94479 INT INP/OBS CARE 3/75MIN Diagnoses Acute on chronic diastolic CHF (congestive heart failure) I50.33 Insomnia G47.00 Cognitive impairment R41.89 Chest pain R07.9 Chest pain type: unspecified History of arterial occlusion Z86.79 Acute hypoxic respiratory failure J96.01 Stroke I63.9 CVA mechanism: unspecified Pericardial effusion I31.39 Essential hypertension I10 Permanent atrial fibrillation I48.21 Tachy-jazmine syndrome I49.5 Pulmonary hypertension I27.20 Aortic regurgitation I35.1 (4) Chest pain Chest pain type: unspecified Qualified Code(s): R07.9 - Chest pain, unspecified (7) Stroke CVA mechanism: unspecified Qualified Code(s): I63.9 - Cerebral infarction, unspecified
[2025-06-18] MEDS: OPTIRAY 320 125ml IV ONE (13:13)
[2025-06-18 13:25] LABS: Appearance Urine Clear (Clear); Bacteria Urine Automated 4+ (None Seen); Cast Urine Automated 0-2 /lpf (0-2); Epithelial Cell Urine Auto 0-2 /hpf (0-2); Glucose Urine UA Negative (Negative); RBC Urine Automated 0-2 /hpf (0-2); WBC Urine Automated 0-5 /hpf (0-5)
--- NOTE | 2025-06-18 13:34 | CT Scan Report ---
CT angio chest PE protocol CT DOSE: 261.74 mGy.cm HISTORY: 89 years-old Female with PE/Effusion/CHF. Acute shortness of breath TECHNIQUE: Multiple CTA images of the chest were obtained after the intravenous administration of 112 ml Optiray. Coronal and sagittal MIPS were obtained from the axial data set and were submitted for review. All measurements were obtained according to NASCET criteria. A dose lowering technique was u tilized adhering to the principles of ALARA. COMPARISON: Chest radiograph same day, CTA chest 10/10/2024 FINDINGS: CTA: Moderate to marked cardiomegaly. Small pericardial effusion. Left subclavian pacer. Moderate to exten sive coronary artery calcifications. Atherosclerosis of the aorta with fusiform dilation of the ascen ding segment measuring 4.0 x 4.0 cm. Dilation of the main pulmonary artery, 3.6 cm. No central pulmon lisandro emboli identified. There is suboptimal evaluation of the segmental and subsegmental branches seco ndary to contrast bolus timing and respiratory motion. CT CHEST: 11 mm hypodense left-sided thyroid nodule. Partially calcified mediastinal lymph nodes. Moderate left with moderate to large right pleural effusions. No pneumothorax. Intralobular septal thickening with dependent bibasilar consolidation. Mucous plugging is most pronounced in the left lower lobe. No acu te upper abdominal abnormality. Mild generalized body wall edema. No acute fracture. IMPRESSION: 1. No pulmonary emboli identified. 2. Cardiomegaly with interstitial pulmonary edema and right greater than left layering pleural effusi ons. 3. Left lower lobe mucous plugging with dependent bibasilar consolidation/atelectasis. 4. Mild fusiform dilation of the ascending thoracic aorta, 4.0 x 4.0 cm. 5. Suggestion of pulmonary arterial hypertension. ACT 112: Negative or not required by law. The above report was generated using voice recognition software. It may contain grammatical, syntax o r spelling errors. Electronically signed by: Victorino Cuadra M.D. 06/18/2025 1:32 PM
--- NOTE | 2025-06-18 14:08 | Electrocardiogram Report ---
Test Reason : Blood Pressure : */* mmHG Vent. Rate : 81 BPM Atrial Rate : * BPM P-R Int : * ms QRS Dur : 98 ms QT Int : 330 ms P-R-T Axes : * 55 -73 degrees QTcB Int : 383 ms Atrial fibrillation with occasional ventricular-paced complexes Minimal voltage criteria for LVH, may be normal variant Abnormal ECG When compared with ECG of 10-Oct-2024 21:55, Electronic ventricular pacemaker has replaced Atrial fibrillation Confirmed by Kwasi Jo ([id number]) on 06/18/2025 2:08:01 PM Referred By: REFERRED SELF Confirmed By: Kwasi Jo
[2025-06-18] MEDS ORDERED: POLYETHYLENE (MIRALAX) 17 GM PACK PO PRN (16:27)
[2025-06-18] MEDS ORDERED: ACETAMINOPHEN 325 MG TAB PO PRN (16:27)
[2025-06-18] MEDS: FUROSEMIDE INJ 20 MG/2 ML VIAL IV SCH (18:43)
[2025-06-18] MEDS: Heparin IV Adult Wt-Based Low-Dose *NO* INITIAL Bolus Protocol IV SCH (21:28)
[2025-06-18] MEDS: HEPARIN 25000 UNIT/500 ML D5W 25,000 UNITS/500 ML BAG IV SCH (21:28)
[2025-06-18] MEDS: DONEPEZIL HCL 5 MG TAB PO SCH (21:32)
[2025-06-18] MEDS: MELATONIN 3 MG TAB PO SCH (21:32)
[2025-06-18] MEDS: ATORVASTATIN 20 MG TAB PO SCH (21:32)
[2025-06-18] MEDS: MIRTAZAPINE TAB 15 MG TAB PO SCH (21:33)
[2025-06-18] MEDS: METOPROLOL TARTRATE 50 MG TAB PO SCH (21:33)
[2025-06-18] MEDS: FAMOTIDINE 20 MG TAB PO SCH (21:36)
[2025-06-19 03:44] LABS: Hematocrit (blood only) 37.5 % (37.0-47.0); Hemoglobin 12.7 g/dl (12.0-16.0); Immature Granulocytes # (auto) 0.02 K/uL (0.01-0.20); Immature Granulocytes % (auto) 0.3 %; Mean Corpuscular Hemoglobin 28.2 pg (25.0-34.0); Mean Corpuscular Volume 83.3 fL (80.0-100.0); Platelet Count 152 K/uL (130-400); RDW Standard Deviation 48.4 fL (36.4-46.3); Red Blood Count 4.50 M/uL (4.20-5.40); White Blood Count 6.90 K/ul (4.8-10.8)
[2025-06-19 04:00] LABS: Alanine Aminotransferase 29.0 U/L (7-52); Albumin Globulin Ratio 1.5 (0.9-2); Albumin Level 3.7 gm/dl (3.4-5.0); Alkaline Phosphatase 77.0 U/L (34-104); Anion Gap 9.0 (3-11); Bilirubin,Total 0.6 mg/dl (0.2-1.0); Blood Urea Nitrogen 17.0 mg/dl (6-23); Calcium 9.2 mg/dl (8.6-10.3); Carbon Dioxide 30.0 mmol/L (21-32); Chloride 102.0 mmol/L (98-107); Creatinine Clr Calc Pharmacy 37.5 ml/min; Globulin 2.5 gm/dl (2.5-4.0); Glucose 85.0 mg/dl (70-99(Fasting)); Magnesium 1.8 mg/dl (1.7-2.4); Potassium 3.6 mmol/L (3.5-5.1); Sodium 141.0 mmol/L (136-145); Total Protein 6.2 gm/dl (6.0-8.3)
[2025-06-19 04:11] LABS: ANTI-Xa, UFH(UnfractionatedHep 0.59 IU/ml (0.3-0.7)
[2025-06-19] MEDS: LEVOTHYROXINE SODIUM 100 MCG TABLET PO SCH (05:45)
[2025-06-19] MEDS: FERROUS SULFATE 325 MG TAB PO SCH (08:27)
[2025-06-19] MEDS: SERTRALINE HCL 50 MG TABLET PO SCH (08:28)
[2025-06-19] MEDS: MAGNESIUM OXIDE 400 MG TAB PO SCH (08:28)
[2025-06-19] MEDS ORDERED: LUTEIN 10 MG PO SCH (09:00)
--- NOTE | 2025-06-19 14:01 | Hospitalist Progress Note ---
Date of Service June 19, 2025 Assessment & Plan (1) Acute on chronic diastolic CHF (congestive heart failure): (2) Insomnia: (3) Cognitive impairment: (4) Chest pain: (5) History of arterial occlusion: (6) Acute hypoxic respiratory failure: (7) Stroke: (8) Pericardial effusion: (9) Essential hypertension: (10) Permanent atrial fibrillation: (11) Tachy-jazmine syndrome: (12) Pulmonary hypertension: (13) Aortic regurgitation: Plan #Hypertensive urgency - Markedly elevated blood pressures. It is not unusual for have a systolic over 200s when she is stressed out or in pain. She takes hydralazine on a regular basis for labile blood pressures. - BP normalizing, continue to monitor with diuresis #acute on chronic hypoxemic respiratory failure #new pleural effusion - Moderate pleural effusion on CT, no significant pericardial effusion. Likely cause of the predominance of her symptoms. - Currently on Eliquis for A-fib and for previous arterial occlusion - Will hold Eliquis, start heparin low-dose weight-based, consultation of pulmonology versus interventional radiology for thoracentesis likely in 1-2 days - IT consult for diagnositc/therapeutic thoracentesis, eliquis held since 06/18 AM dose, bridging with heparin #CHF/HFpEF #chest pain #History of pericardial effusion #Hx of pulmonary hypertension -Known history of pericardial effusion, new pleural effusions on chest x-ray today, recent 2-3-week history of fairly abrupt onset severe lower extremity edema anasarca for which they have been diuresing her at [facility] - presentation suggestive of worsening biventricular failure - Reported dry weight is 104 pounds. She is been well above that recently. - Admit PCU as above, - IV Lasix, 20mg iv bid17, goal diuresis 2-3 L in the first 24 hours. - CT pulmonary embolus from to quantify pleural effusions, vasculature givens pronounced atherosclerosis noted on x-ray, evaluate for pericardial effusion - Echocardiogram on admission depending on findings of CT as above - Telemetry monitoring, serial troponins - Daily weight #Atrial fibrillation #Status post pacemaker placement - Recent visit for pacemaker interrogation was within normal limits. CHF/HFpEF as above - Continue Eliquis - Telemetry monitoring #Diffuse Vascular Disease #Lower extremity arterial occlusion - Continue Eliquis, noted and flown to [place] in 2023. No recurrent or changing symptoms - Serial troponin, tele monitoring, secondary prevention #History of ÓSCAR - Had previously been on CPAP/BiPAP but "could not get the masks to work so has not used it for quite some time" - Consult RT, given increased work of breathing poor sleep trial of BiPAP initially did give her some relief from respiratory distress #Hypertension -On diltiazem, furosemide, hydralazine 3 times daily #Hypothyroidism - Check TSH on admit #FEN - Cardiac diet #CODE STATUS - DNR/DNI per her wishes. She is okay with BiPAP on as needed basis no shocks or other resuscitative interventions Admission and Anticipated Discharge Date Admission Date: June 18, 2025 Subjective Doing okay this morning. Was able to actually sleep a bit last night given oxygen and supportive respiratory cares., No new or different symptoms per nursing. She has yet to get up and eat breakfast on my visit. No new or different symptoms per nursing. She has yet to get up and eat breakfast on my visit. No events, did not require Bipap. Physical Exam Physical Exam: General: A&Ox3. NAD. Cooperative. HEENT: Atraumatic, normocephalic. Vision and hearing grossly intact. Pupils equal and reactive to light, sclera clear and anicteric Neck: Jugular venous pulse distended to the level of the mandible Pulm: Decreased breath sounds in the right base, fine crackles at the bases on posterior examination, otherwise minimal wheezing, good air movement in the apices bilaterally Cardiac: tachycardic. 2/6 MARTINE at the LUSB, radial pulses intact and symmetrical. Abdominal: Nontender, nondistended, soft. BS present. Ext: 1+ edema right greater than left to the level of the knee, Moves all extremities equally NEURO: A&O as above, no focal deficits Skin: warm, moist, No pallor or discoloration Results & Data Results & Data Vital Signs (Past 12 Hours) Vital Signs Temp Pulse Resp BP BP Pulse Ox O2 Del Method 06/19/25 11:52 36.9 C 93 H 21 130/63 94 Nasal Cannula 06/19/25 09:39 Nasal Cannula 06/19/25 08:25 37 C 94 H 20 161/60 H 95 Nasal Cannula 06/19/25 05:42 173/81 H 06/19/25 03:51 85 16 182/97 H 97 Nasal Cannula O2 Flow Rate 06/19/25 11:52 1 06/19/25 09:39 1 06/19/25 08:25 1 06/19/25 05:42 06/19/25 03:51 2 Laboratory Results 06/18/25 13:05 Urine Culture - Preliminary Urine,Clean Catch Escherichia coli 06/19/25 06/19/25 06/18/25 09:49 03:10 Unknown WBC 6.90 RBC 4.50 Hgb 12.7 Hct 37.5 MCV 83.3 MCH 28.2 MCHC 33.9 RDW Std Deviation 48.4 H RDW Coeff of Alfredo 15.9 H Plt Count 152 MPV 11.9 Immature Gran % (Auto) 0.3 Neut % (Auto) 64.1 Lymph % (Auto) 23.0 Rowan % (Auto) 10.0 Eos % (Auto) 1.7 Baso % (Auto) 0.9 Neut # (Auto) 4.42 Lymph # (Auto) 1.59 Rowan # (Auto) 0.69 H Eos # (Auto) 0.12 Baso # (Auto) 0.06 Immature Gran # (Auto) 0.02 Heparin Anti-Xa, Unfract 0.59 Sodium 141 Potassium 3.6 Chloride 102 Carbon Dioxide 30 Anion Gap 9 BUN 17 Creatinine 0.84 Est Cr Clr Drug Dosing 37.5 eGFR 66.80 BUN/Creatinine Ratio 20.2 H Glucose 85 Calcium 9.2 Magnesium 1.8 Total Bilirubin 0.6 AST 29 ALT 29 Alkaline Phosphatase 77 Troponin I High Sens 10.5 12.3 Total Protein 6.2 Albumin 3.7 Globulin 2.5 Albumin/Globulin Ratio 1.5 Nasal Screen MRSA (PCR) Negative 06/18/25 21:05 WBC RBC Hgb Hct MCV MCH MCHC RDW Std Deviation RDW Coeff of Alfredo Plt Count MPV Immature Gran % (Auto) Neut % (Auto) Lymph % (Auto) Rowan % (Auto) Eos % (Auto) Baso % (Auto) Neut # (Auto) Lymph # (Auto) Rowan # (Auto) Eos # (Auto) Baso # (Auto) Immature Gran # (Auto) Heparin Anti-Xa, Unfract Sodium Potassium Chloride Carbon Dioxide Anion Gap BUN Creatinine Est Cr Clr Drug Dosing eGFR BUN/Creatinine Ratio Glucose Calcium Magnesium Total Bilirubin AST ALT Alkaline Phosphatase Troponin I High Sens 11.0 Total Protein Albumin Globulin Albumin/Globulin Ratio Nasal Screen MRSA (PCR) PG Care Time/CCT Total # of Minutes Spent Total Time Spent with Patient: Total time spent is greater than 50% in coordination of care (as documented) at patient's floor/unit and/or counseling patient: Coding Level of Care Code 15126 SUB INP/OBS CARE 2/35MIN Diagnoses Acute on chronic diastolic CHF (congestive heart failure) I50.33 Insomnia G47.00 Cognitive impairment R41.89 Chest pain R07.9 Chest pain type: unspecified History of arterial occlusion Z86.79 Acute hypoxic respiratory failure J96.01 Stroke I63.9 CVA mechanism: unspecified Pericardial effusion I31.39 Essential hypertension I10 Permanent atrial fibrillation I48.21 Tachy-jazmine syndrome I49.5 Pulmonary hypertension I27.20 Aortic regurgitation I35.1 (4) Chest pain Chest pain type: unspecified Qualified Code(s): R07.9 - Chest pain, unspecified (7) Stroke CVA mechanism: unspecified Qualified Code(s): I63.9 - Cerebral infarction, unspecified
[2025-06-20 06:35] LABS: ANTI-Xa, UFH(UnfractionatedHep 0.59 IU/ml (0.3-0.7)
[2025-06-20] MEDS: DOCUSATE SODIUM 100 MG CAP PO PRN (08:08)
--- NOTE | 2025-06-20 13:00 | Hospitalist Progress Note ---
Date of Service June 20, 2025 Assessment & Plan (1) Acute on chronic diastolic CHF (congestive heart failure): (2) Insomnia: (3) Cognitive impairment: (4) Chest pain: (5) History of arterial occlusion: (6) Acute hypoxic respiratory failure: (7) Stroke: (8) Pericardial effusion: (9) Essential hypertension: (10) Permanent atrial fibrillation: (11) Tachy-jazmine syndrome: (12) Pulmonary hypertension: (13) Aortic regurgitation: Plan #Hypertensive urgency - Markedly elevated blood pressures. It is not unusual for have a systolic over 200s when she is stressed out or in pain. She takes hydralazine on a regular basis for labile blood pressures. - BP normalizing, continue to monitor with diuresis - BP normalizing with diuresis, continue antihypertensive, most readings within upper limit of goal range, no further adjustment necessary at this time #acute on chronic hypoxemic respiratory failure #new pleural effusion - Moderate pleural effusion on CT, no significant pericardial effusion. Likely cause of the predominance of her symptoms. - Currently on Eliquis for A-fib and for previous arterial occlusion - Will hold Eliquis, start heparin low-dose weight-based, consultation of pulmonology versus interventional radiology for thoracentesis likely in 1-2 days - IT consult for diagnositc/therapeutic thoracentesis, eliquis held since 06/18 AM dose, bridging with heparin - Interventional radiology unable to complete thoracentesis tomorrow due to schedule conflicts, she will need to be off Eliquis until completes them. Advise consult to pulmonology for diagnostic/therapeutic thoracentesis, consult placed #CHF/HFpEF #chest pain #History of pericardial effusion #Hx of pulmonary hypertension -Known history of pericardial effusion, new pleural effusions on chest x-ray today, recent 2-3-week history of fairly abrupt onset severe lower extremity edema anasarca for which they have been diuresing her at [facility] - presentation suggestive of worsening biventricular failure - Reported dry weight is 104 pounds. She is been well above that recently. - Stop Lasix, close to euvolemic weight - Continue telemetry monitoring. #Atrial fibrillation #Status post pacemaker placement - Recent visit for pacemaker interrogation was within normal limits. CHF/HFpEF as above - Continue Eliquis - Telemetry monitoring, rate controlled #Diffuse Vascular Disease #Lower extremity arterial occlusion - Continue Eliquis, noted and flown to [place] in 2023. No recurrent or changing symptoms - Serial troponin, tele monitoring, secondary prevention #History of ÓSCAR - Had previously been on CPAP/BiPAP but "could not get the masks to work so has not used it for quite some time" - Consult RT, given increased work of breathing poor sleep trial of BiPAP initially did give her some relief from respiratory distress #Hypertension -On diltiazem, furosemide, hydralazine 3 times daily #Hypothyroidism - Check TSH on admit #FEN - Cardiac diet #CODE STATUS - DNR/DNI per her wishes. She is okay with BiPAP on as needed basis no shocks or other resuscitative interventions Admission and Anticipated Discharge Date Admission Date: June 18, 2025 Subjective Up sitting in the bedside chair this morning eating breakfast. States her breathing is improved mostly off oxygen but still not back to her baseline. Notices worse when she lies down. No chest pain no fevers chills or other new or different symptoms. Appropriate per nursing staff no new events or concerns. No problems with intake, bowel or bladder function. Physical Exam Physical Exam: General: A&Ox3. NAD. Cooperative. HEENT: Atraumatic, normocephalic. Vision and hearing grossly intact. Pupils equal and reactive to light, sclera clear and anicteric Neck: Jugular venous pulse nondistended Pulm: Decreased breath sounds in the right base, fine crackles at the bases on posterior examination, otherwise minimal wheezing, interval improvement in air movement throughout upper madden axis Cardiac: tachycardic. 2/6 MARTINE at the LUSB, radial pulses intact and symmetrical. Abdominal: Nontender, nondistended, soft. BS present. Ext: Trace edema lower extremities bilaterally, Moves all extremities equally NEURO: A&O as above, no focal deficits Skin: warm, moist, No pallor or discoloration Results & Data Results & Data Vital Signs (Past 12 Hours) Vital Signs Temp Pulse Pulse Resp BP BP Pulse Ox 06/20/25 12:11 92 H 06/20/25 11:55 36.7 C 97 H 18 155/91 H 90 06/20/25 08:51 36.9 C 89 18 140/81 90 06/20/25 08:00 101 H 140/81 06/20/25 03:07 36.6 C 85 18 165/99 H 91 O2 Del Method 06/20/25 12:11 10/29/25 11:55 Room Air 06/20/25 08:51 Room Air 06/20/25 08:00 06/20/25 03:07 Room Air Laboratory Results 06/18/25 13:05 Urine Culture - Final Urine,Clean Catch Escherichia coli 06/20/25 05:24 Heparin Anti-Xa, Unfract 0.59 PG Care Time/CCT Total # of Minutes Spent Total Time Spent with Patient: Total time spent is greater than 50% in coordination of care (as documented) at patient's floor/unit and/or counseling patient: Coding Level of Care Code 87249 SUB INP/OBS CARE 2/35MIN Diagnoses Acute on chronic diastolic CHF (congestive heart failure) I50.33 Insomnia G47.00 Cognitive impairment R41.89 Chest pain R07.9 Chest pain type: unspecified History of arterial occlusion Z86.79 Acute hypoxic respiratory failure J96.01 Stroke I63.9 CVA mechanism: unspecified Pericardial effusion I31.39 Essential hypertension I10 Permanent atrial fibrillation I48.21 Tachy-jazmine syndrome I49.5 Pulmonary hypertension I27.20 Aortic regurgitation I35.1 (4) Chest pain Chest pain type: unspecified Qualified Code(s): R07.9 - Chest pain, unspecified (7) Stroke CVA mechanism: unspecified Qualified Code(s): I63.9 - Cerebral infarction, unspecified
--- NOTE | 2025-06-20 14:03 | Pulmonary Consultation ---
Date of Consultation June 20, 2025 History of Present Illness Reason for Consultation: Pleural effusions Attending Physician: Rd Perkins MD History of Present Illness The patient is a very pleasant 89-year-old female who presented to the ED with complaints of progressively worsening shortness of breath and chest pain. Over the preceding two weeks, she had experienced increasing dyspnea and a persistent cough, which acutely worsened over the 24-36 hours prior to arrival. The night before admission, she developed substernal chest pain radiating to her right shoulder while attempting to go to bed. Staff at her facility administered three doses of nitroglycerin and 324 mg of aspirin, after which her chest pain resolved. However, she continued to have significant shortness of breath, prompting EMS activation. On EMS arrival, she was found to have oxygen saturations of 88% on room air and was started on 4 L nasal cannula and given a DuoNeb treatment. She denied any baseline supplemental oxygen use. She reported severe lower extremity edema that began abruptly 2-3 weeks prior, for which she had been diuresed at her facility with some improvement, but persistent congestion and cough remained. She had not slept for two days prior to admission and was unable to lie flat due to dyspnea. She has a history of intermittent oxygen use in the past but had not required it recently. She also had a history of ÓSCAR but had not tolerated CPAP or BiPAP. Chest X-ray and CT imaging showed new bilateral pleural effusions without significant pericardial effusion. She was treated with IV Lasix and required supplemental oxygen during her ED stay. Her code status was DNR/DNI, with BiPAP as needed but no resuscitative interventions. Her past medical history was significant for HFpEF, permanent Afib, status post pacemaker, diffuse vascular disease, prior lower extremity arterial occlusion, stroke, chronic hypoxemic respiratory failure, HTN, HLD, hypothyroidism, ÓSCAR, pericardial effusion, aortic regurgitation, and cognitive impairment. Patient went to IR for drainage of pleural effusion. Will cancel consult. Allergies Allergy/AdvReac Type Severity Reaction Status Date / Time oxycodone AdvReac Intermediate HALLUCINATI Verified 06/06/25 12:59 ONS morphine AdvReac Unknown DELIRIUM Verified 06/06/25 12:59 Home Medications Medication Instructions Recorded Confirmed Type omeprazole 40 mg capsule,delayed 40 mg PO QAM 05/06/18 06/18/25 History release atorvastatin 20 mg tablet 20 mg PO HS 11/16/18 06/18/25 History docusate sodium 100 mg tablet 100 mg PO DAILY PRN cnstipation 11/16/18 06/18/25 History sertraline 50 mg tablet 50 mg PO QAM 11/16/18 06/18/25 History donepezil 5 mg tablet 5 mg PO HS 02/09/22 06/18/25 History magnesium oxide 400 mg PO QAM 05/13/24 06/18/25 History apixaban 2.5 mg tablet (Eliquis) 2.5 mg PO BID 08/31/24 06/18/25 History famotidine 20 mg tablet 20 mg PO HS 08/31/24 06/18/25 History levothyroxine 100 mcg tablet 100 mcg PO QAM 08/31/24 06/18/25 History Cranberry Plus Vitamin C 2 softgel PO DAILY ##0 10/10/24 06/18/25 History acetaminophen 500 mg tablet 1,000 mg PO DAILY PRN Flu Symptoms 10/10/24 06/18/25 History cyanocobalamin (vitamin B-12) 5,000 mcg sublingual DAILY 10/10/24 06/18/25 History 2,500 mcg sublingual tablet (Vitamin B-12) furosemide 20 mg tablet (Lasix) 20 mg PO DAILY PRN weight gain of 10/10/24 06/18/25 History 3 lbs lidocaine 4 % topical patch 1 patch topical DAILY 10/10/24 06/18/25 History loratadine 10 mg tablet 10 mg PO DAILY 10/10/24 06/18/25 History melatonin 10 mg chewable tablet 10 mg PO HS 10/10/24 06/18/25 History nitroglycerin 0.4 mg sublingual 0.4 mg sublingual UD PRN Chest Pain 10/10/24 06/18/25 History tablet (Nitrostat) ondansetron 4 mg disintegrating 4 mg PO .EVERY 6-8 HOURS PRN 10/10/24 06/18/25 History tablet Nausea And Vomiting bisacodyl 10 mg rectal suppository 10 mg KS DAILY PRN Constipation 04/02/25 06/18/25 History diltiazem HCl 180 mg 180 mg PO DAILY 04/02/25 06/18/25 History capsule,extended release 24 hr ferrous sulfate 325 mg (65 mg 325 mg PO DAILY 04/02/25 06/18/25 History iron) tablet hydralazine 25 mg tablet 25 mg PO TID 04/02/25 06/18/25 History lutein 10 mg tablet 0 mg PO DAILY 04/02/25 06/18/25 History menthol 0.44 %-zinc oxide 20.6 % 1 applic topical DAILY PRN 04/02/25 06/18/25 History topical ointment (Calmoseptine) irritation/breakdown metoprolol tartrate 50 mg tablet 100 mg PO BID 04/02/25 06/18/25 History mirtazapine 7.5 mg tablet 15 mg PO HS 04/02/25 06/18/25 History acetaminophen 500 mg tablet 1,000 mg PO BID 06/18/25 06/18/25 History fluticasone fur. 100 mcg-umeclid 1 inh inhalation DAILY 06/18/25 06/18/25 History 62.5 mcg-vilant 25 mcg inhalat.powder (Trelegy Ellipta) melatonin 5 mg chewable tablet 5 mg PO HS 06/18/25 06/18/25 History Patient History Medical History Essential hypertension Permanent atrial fibrillation Presence of permanent cardiac pacemaker Aspiration into lower respiratory tract Periorbital cellulitis of left eye Hyperlipidemia LDL goal <70 Thoracic back pain CVA (cerebral vascular accident) Epidural hematoma Weight loss, unintentional Tricuspid regurgitation Tachy-jazmine syndrome Pulmonary hypertension Dyslipidemia Cerebrovascular disease Benign hypertension Aortic regurgitation Anxiety disorder Headache Surgical History Status post laparoscopic right hemicolectomy (04/03/25) Robotic assisted right hemicolectomy for intussusception, [place], 03 April 2025 H/O cervical spine surgery "cervical decompression with evacuation of cervical epidural hematoma 08/25" S/P tonsillectomy H/O: hysterectomy History of bilateral tubal ligation History of appendectomy Family History Other Family history non-contributory Social History Smoking Status: Former smoker Tobacco Type: Cigarettes Second Hand Exposure: No; Do You Dip or Chew Tobacco: No; Hx Alcohol Use: No Hx Substance Use: No Preferred Language: [place] Communication Ability: Effective 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 Beliefs That Will Affect Care: None marital status: / Current Living Situation: [facility] Current Living Situation Comment: [facility] Feels Safe at Home: Yes Safety Concerns: Feels Safe At This Time Assistive Devices: Walker and Wheelchair Results & Data Results & Data Vital Signs (Past 12 Hours) Vital Signs Temp Pulse Pulse Resp BP BP Pulse Ox 06/20/25 12:11 92 H 06/20/25 11:55 36.7 C 97 H 18 155/91 H 90 06/20/25 08:51 36.9 C 89 18 140/81 90 06/20/25 08:00 101 H 140/81 06/20/25 03:07 36.6 C 85 18 165/99 H 91 O2 Del Method 06/20/25 12:11 06/20/25 11:55 Room Air 06/20/25 08:51 Room Air 06/20/25 08:00 06/20/25 03:07 Room Air PG Care Time/CCT Total # of Minutes Spent Total Time Spent with Patient: Total time spent is greater than 50% in coordination of care (as documented) at patient's floor/unit and/or counseling patient: Coding Level of Care Code None
[2025-06-21 07:01] LABS: ANTI-Xa, UFH(UnfractionatedHep 0.56 IU/ml (0.3-0.7)
--- NOTE | 2025-06-21 13:38 | XRay Report ---
XR chest 1V not portable CLINICAL HISTORY: POST THORA COMPARISON STUDY: 06/18/2025 FINDINGS: Stable pacemaker. Stable cardiomegaly with mild pulmonary vascular congestion. Stable left pleural effusion and consolidation at the left lung base. The prior right pleural effusion has resolv ed. No pneumothorax seen. Skinfold artifact overlies the chest bilaterally. IMPRESSION: No pneumothorax seen. ACT 112: Negative or not required by law. Electronically signed by: Mike Mason M.D. 06/21/2025 1:37 PM
--- NOTE | 2025-06-21 13:40 | Ultrasound Report ---
IR thoracentesis wo tube US CLINICAL HISTORY: New bilateral pleural effusions, hypoxemia COMPARISON STUDY: CT head 06/18/2025 Technique: After the procedure was discussed and questions answered, consent was obtained. Patient wa s positioned seated upright. The chest was evaluated with ultrasound. There is a moderate right pleur al effusion and a small left pleural effusion. The right back was prepped and draped in standard ster ile fashion. 1% lidocaine was used for local anesthesia. Under ultrasound guidance, a standard thorac entesis catheter was advanced into the right pleural effusion. 600 cc of serosanguineous fluid was wi thdrawn. Catheter was removed. Hemostasis was obtained with manual compression. Sterile dressing was applied. Postprocedure chest x-ray showed no evidence of pneumothorax. IMPRESSION: Right-sided thoracentesis. ACT 112: Negative or not required by law. Electronically signed by: Mike Mason M.D. 06/21/2025 1:39 PM
[2025-06-21] MEDS: APIXABAN 2.5 MG TAB PO SCH (13:44)
[2025-06-21 14:10] LABS: Appearance Pleural Fluid Hazy; Color Pleural Fluid Straw; RBC Pleural Fluid Auto 9000 /uL; Source Pleural Fluid Right Lung; WBC Pleural Fluid Auto 806 /uL
[2025-06-21 14:31] LABS: Lymphocytes, Fluid 33 %; Mono,Macrophage,Mesothelial 63 %; Neutrophils, Fluid 4 %
--- NOTE | 2025-06-21 14:47 | Hospitalist Progress Note ---
Date of Service June 21, 2025 Assessment & Plan (1) Acute on chronic diastolic CHF (congestive heart failure): (2) Insomnia: (3) Cognitive impairment: (4) Chest pain: (5) History of arterial occlusion: (6) Acute hypoxic respiratory failure: (7) Stroke: (8) Pericardial effusion: (9) Essential hypertension: (10) Permanent atrial fibrillation: (11) Tachy-jazmine syndrome: (12) Pulmonary hypertension: (13) Aortic regurgitation: Plan #Hypertensive urgency - Markedly elevated blood pressures. It is not unusual for have a systolic over 200s when she is stressed out or in pain. She takes hydralazine on a regular basis for labile blood pressures. - BP normalizing, continue to monitor with diuresis - I suspect some amount of permissive hypertension will be required. Blood pressure readings have been labile but generally normal #acute on chronic hypoxemic respiratory failure #new pleural effusion - Moderate pleural effusion on CT, no significant pericardial effusion. Likely cause of the predominance of her symptoms. - Currently on Eliquis for A-fib and for previous arterial occlusion - Will hold Eliquis, start heparin low-dose weight-based, consultation of pulmonology versus interventional radiology for thoracentesis likely in 1-2 days - IT consult for diagnositc/therapeutic thoracentesis, eliquis held since 10 AM dose, bridging with heparin - 600 cc straw-colored fluid removed removed for thoracentesis, will continue to monitor, fluid studies sent #CHF/HFpEF #chest pain #History of pericardial effusion #Hx of pulmonary hypertension -Known history of pericardial effusion, new pleural effusions on chest x-ray today, recent 2-3-week history of fairly abrupt onset severe lower extremity edema anasarca for which they have been diuresing her at [facility] - presentation suggestive of worsening biventricular failure - Reported dry weight is 104 pounds. She is been well above that recently. - Stop Lasix,at dry weight, 44-45 kg - Continue telemetry monitoring. - #Atrial fibrillation #Status post pacemaker placement - Recent visit for pacemaker interrogation was within normal limits. CHF/HFpEF as above - DC heparin, restart Eliquis #Diffuse Vascular Disease #Lower extremity arterial occlusion - Continue Eliquis, noted and flown to [place] in 2023. No recurrent or changing symptoms - Serial troponin, tele monitoring, secondary prevention #History of ÓSCAR - Had previously been on CPAP/BiPAP but "could not get the masks to work so has not used it for quite some time" - Consult RT, given increased work of breathing poor sleep trial of BiPAP initially did give her some relief from respiratory distress #Hypertension -On diltiazem, furosemide, hydralazine 3 times daily #Hypothyroidism - Check TSH on admit #FEN - Cardiac diet #CODE STATUS - DNR/DNI per her wishes. She is okay with BiPAP on as needed basis no shocks or other resuscitative interventions #Disposition -[facility] will have a bed available for her as soon as tomorrow. I think she ready for discharge at that time Admission and Anticipated Discharge Date Admission Date: June 18, 2025 Subjective Doing pretty well this morning. Slept much better. Has been to majority of her time off oxygen. Still somewhat labored with even minimal attempts at activity. We discussed the possibility of thoracentesis being completed later today. She is tentatively scheduled for 10 AM. Otherwise no new complaints or concerns per patient. Nursing staff reports no events or new issues. Physical Exam Physical Exam: General: A&Ox3. NAD. Cooperative. HEENT: Atraumatic, normocephalic. Vision and hearing grossly intact. Pupils equal and reactive to light, sclera clear and anicteric Neck: Jugular venous pulse nondistended Pulm: Decreased breath sounds in the right base, fine crackles at the bases on posterior examination, otherwise minimal wheezing, interval improvement in air movement throughout upper madden axis Cardiac: tachycardic. 2/6 MARTINE at the LUSB, radial pulses intact and symmetrical. Abdominal: Nontender, nondistended, soft. BS present. Ext: Trace edema lower extremities bilaterally, Moves all extremities equally NEURO: A&O as above, no focal deficits Skin: warm, moist, No pallor or discoloration Results & Data Results & Data Vital Signs (Past 12 Hours) Vital Signs Temp Pulse Pulse Resp BP BP Pulse Ox 06/21/25 13:45 36.7 C 82 17 138/68 91 06/21/25 10:35 36.4 C L 89 19 151/93 H 91 06/21/25 09:33 93 H 06/21/25 08:44 36.5 C 93 H 17 117/79 94 06/21/25 07:18 06/21/25 03:47 36.8 C 85 18 181/76 H 91 O2 Del Method 06/21/25 13:45 Room Air 06/21/25 10:35 Room Air 06/21/25 09:33 06/21/25 08:44 Room Air 06/21/25 07:18 Room Air 06/21/25 03:47 Room Air Laboratory Results 06/21/25 Unknown Gram Stain - Pending Pleural Fluid Aerobic and Anaerobic Culture - Pending 06/21/25 06/21/25 Unknown 06:13 Heparin Anti-Xa, Unfract 0.56 Fluid Neutrophils % 4 Fluid Lymphocytes % 33 Fluid [place] % 63 Fluid Comment Pleural Fluid Source Right Lung Pleural Color Straw Pleural Appearance Hazy Pleural pH 7.66 H Pleural WBC (Auto) 806 Pleural RBC (Auto) 9000 Pleural Total Protein 3.2 Pleural LDH 66 Pleural Glucose 110 Diagnostic Findings Chest X-Ray 06/21/25 00:00 XR chest 1V not portable CLINICAL HISTORY: POST THORA COMPARISON STUDY: 06/18/2025 FINDINGS: Stable pacemaker. Stable cardiomegaly with mild pulmonary vascular congestion. Stable left pleural effusion and consolidation at the left lung base. The prior right pleural effusion has resolved. No pneumothorax seen. Skinfold artifact overlies the chest bilaterally. IMPRESSION: No pneumothorax seen. ACT 112: Negative or not required by law. Electronically signed by: Mike Mason M.D. 06/21/2025 1:37 PM Thoracentesis/Paracentesis US 06/21/25 00:00 IR thoracentesis wo tube US CLINICAL HISTORY: New bilateral pleural effusions, hypoxemia COMPARISON STUDY: CT head 06/18/2025 Technique: After the procedure was discussed and questions answered, consent was obtained. Patient was positioned seated upright. The chest was evaluated with ultrasound. There is a moderate right pleural effusion and a small left pleural effusion. The right back was prepped and draped in standard sterile fashion. 1% lidocaine was used for local anesthesia. Under ultrasound guidance, a standard thoracentesis catheter was advanced into the right pleural effusion. 600 cc of serosanguineous fluid was withdrawn. Catheter was removed. Hemostasis was obtained with manual compression. Sterile dressing was applied. Postprocedure chest x-ray showed no evidence of pneumothorax. IMPRESSION: Right-sided thoracentesis. ACT 112: Negative or not required by law. Electronically signed by: Mike Mason M.D. 06/21/2025 1:39 PM PG Care Time/CCT Total # of Minutes Spent Total Time Spent with Patient: Total time spent is greater than 50% in coordination of care (as documented) at patient's floor/unit and/or counseling patient: Coding Level of Care Code 06651 SUB INP/OBS CARE 2/35MIN Diagnoses Acute on chronic diastolic CHF (congestive heart failure) I50.33 Insomnia G47.00 Cognitive impairment R41.89 Chest pain R07.9 Chest pain type: unspecified History of arterial occlusion Z86.79 Acute hypoxic respiratory failure J96.01 Stroke I63.9 CVA mechanism: unspecified Pericardial effusion I31.39 Essential hypertension I10 Permanent atrial fibrillation I48.21 Tachy-jazmine syndrome I49.5 Pulmonary hypertension I27.20 Aortic regurgitation I35.1 (4) Chest pain Chest pain type: unspecified Qualified Code(s): R07.9 - Chest pain, unspecified (7) Stroke CVA mechanism: unspecified Qualified Code(s): I63.9 - Cerebral infarction, unspecified
[2025-06-21] MEDS: ONDANSETRON INJ 2 MG/ML 2 ML VIAL IV PRN (21:28)
[2025-06-22 06:30] LABS: Hematocrit (blood only) 40.3 % (37.0-47.0); Hemoglobin 13.5 g/dl (12.0-16.0); Immature Granulocytes # (auto) 0.02 K/uL (0.01-0.20); Immature Granulocytes % (auto) 0.3 %; Mean Corpuscular Hemoglobin 28.1 pg (25.0-34.0); Mean Corpuscular Volume 83.8 fL (80.0-100.0); Platelet Count 145 K/uL (130-400); RDW Standard Deviation 47.4 fL (36.4-46.3); Red Blood Count 4.81 M/uL (4.20-5.40); White Blood Count 6.88 K/ul (4.8-10.8)
[2025-06-22 07:06] LABS: Anion Gap 7.0 (3-11); Blood Urea Nitrogen 20.0 mg/dl (6-23); Calcium 9.1 mg/dl (8.6-10.3); Carbon Dioxide 30.0 mmol/L (21-32); Chloride 104.0 mmol/L (98-107); Creatinine Clr Calc Pharmacy 33.6 ml/min; Glucose 90.0 mg/dl (70-99(Fasting)); Magnesium 2.1 mg/dl (1.7-2.4); Potassium 3.7 mmol/L (3.5-5.1); Sodium 141.0 mmol/L (136-145)
[2025-06-22 11:00] VITALS: BP 109/59; PULSE 79; RESP 22; TEMP 97.9; O2SAT 90
--- NOTE | 2025-06-22 14:34 | Discharge Summary ---
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 It is not unusual for have a systolic over 200s when she is stressed out or in pain. She takes hydralazine on a regular basis for labile blood pressures. - Over the course of 2 days with diuretics and as needed medications for severe increases in hyperkalemia normalized. Her home antihypertensives were restarted and blood pressures were largely within range. There is some labile variability but no indication to make further adjustments of blood pressure medications #acute on chronic hypoxemic respiratory failure #new pleural effusion - Moderate pleural effusion on CT, no significant pericardial effusion. Likely cause of the predominance of her symptoms. - Currently on Eliquis for A-fib and for previous arterial occlusion - Will hold Eliquis, start heparin low-dose weight-based, consultation of pulmonology versus interventional radiology for thoracentesis likely in 1-2 days - IT consult for diagnositc/therapeutic thoracentesis, eliquis held since 06/18 AM dose, bridging with heparin - 600 cc straw-colored fluid removed removed for thoracentesis, will continue to monitor, fluid studies sent on 06/21 - Diuresed as below. Early effusions likely secondary to significant volume overload early in the course of this illness. Fluid studies pending at time of discharge, reviewed with patient really transudative in nature. Will monitor for recurrence/resolution in the outpatient setting #CHF/HFpEF #chest pain #History of pericardial effusion #Hx of pulmonary hypertension -Known history of pericardial effusion, new pleural effusions on chest x-ray today, recent 2-3-week history of fairly abrupt onset severe lower extremity edema anasarca for which they have been diuresing her at [facility] - presentation suggestive of worsening biventricular failure - Reported dry weight is 104 pounds. She is been well above that recently. - Diuresed over the course of several days. is clinically euvolemic. Dry weight measured at 45 kg. She was discharged without ongoing diuretic therapy. Asked to follow-up with primary clinic for discussion of long-term diuretics if needed. Stable and rate controlled at time of discharge #Atrial fibrillation #Status post pacemaker placement - Recent visit for pacemaker interrogation was within normal limits. CHF/HFpEF as above - DC heparin, restart Eliquis #Diffuse Vascular Disease #Lower extremity arterial occlusion - Continue Eliquis, noted and flown to [place] in 2023. No recurrent or changing symptoms - Serial troponin, tele monitoring, secondary prevention, #History of ÓSCAR - Had previously been on CPAP/BiPAP but "could not get the masks to work so has not used it for quite some time" - Consult RT, given increased work of breathing poor sleep trial of BiPAP initially did give her some relief from respiratory distress #Hypertension -On diltiazem, furosemide, hydralazine 3 times daily #Hypothyroidism - Check TSH on admit #FEN - Cardiac diet #CODE STATUS - DNR/DNI per her wishes. She is okay with BiPAP on as needed basis no shocks or other resuscitative interventions #Disposition -[facility] Admission HPI Per Admitting Provider 89-year-old female resident of [facility] history of HFpEF, permanent atrial fibrillation, diffuse vascular disease, stroke, chronic hypoxemic respiratory failure, hypertension, hyperlipidemia, hypothyroidism, ÓSCAR presents to the emergency department with acute worsening of subacute shortness of breath for the last several weeks. According the patient and family present at the bedside about 2-3 weeks ago she had a fairly abrupt and severe bout of lower extremity edema. She was placed on Lasix and had some gradual improvement but since that episode has had persistent congestion and cough treated mostly with Mucinex but is been unrelenting. Over the last 24-36 hours it has acutely worsened. She says she has not slept in 2 days. Unable to lie flat. Cough has been nonproductive but congestive. She is quite dyspneic. She was previously on oxygen intermittently but has not had this for quite some time. She also previously diagnosed with sleep apnea but has not used a CPAP machine as it was never consistently tolerated. Otherwise she had a period of chest pain last night this substernal in nature since resolved. Initial evaluation emergency department consistent with CHF/volume overload. Blood pressure noted to be markedly elevated which is not unusual for stressful episodes per her family. She was referred for admission for hypertensive urgency in the setting of CHF, acute on chronic hypoxic respiratory failure. Further workup and evaluation. Discharge Exam General: A&Ox3. NAD. Cooperative. HEENT: Atraumatic, normocephalic. Vision and hearing grossly intact. Pupils equal and reactive to light, sclera clear and anicteric Neck: Jugular venous pulse nondistended Pulm: Interval improvement in air exchange in the bases, right greater than left, persistent fine crackles at the bases on posterior examination, otherwise minimal wheezing, interval improvement in air movement throughout upper madden axis Cardiac: tachycardic. 2/6 MARTINE at the LUSB, radial pulses intact and symmetrical. Abdominal: Nontender, nondistended, soft. BS present. Ext: Trace edema lower extremities bilaterally, Moves all extremities equally NEURO: A&O as above, no focal deficits Skin: warm, moist, No pallor or discoloration Discharge Plan Discharge Items Patient Disposition: Personal Residential Reason For Visit: SHORTNESS OF BREATH Discharge Diagnosis: Hypoxemic Respiratory Failure Condition on Discharge: Fair Activity: Resume your previous activity Non-emergency contact: Primary Care Provider Call non-emergency contact if: you have any medication questions, your symptoms worsen, your pain is not controlled and you have a fever Follow-up/Referrals: Jamie Norton DO [Primary Care Provider] - Diet: Regular Addtl Attending Provider Instructions: Hospitalized for hypoxemic respiratory failure in the setting of volume overload and right pleural effusion. Recheck discussed need for diuretic Pending Studies at Discharge: Yes (Pleural Fluid Studies) Stand-Alone Forms: [email or web address], Smoking Cessation Skilled Items Patient informed of condition?: Yes DNR: No Discharge Level of Care: Other Communicable Disease: No Discharge Prognosis: Stable Lines: None Urinary Catheter: No Medications and DC Order Prescriptions: Continued donepezil 5 mg tablet 5 mg PO HS atorvastatin 20 mg tablet 20 mg PO HS sertraline 50 mg tablet 50 mg PO QAM docusate sodium 100 mg Tablet 100 mg PO DAILY PRN (Reason: cnstipation) omeprazole 40 mg capsule,delayed release(DR/EC) 40 mg PO QAM Eliquis 2.5 mg tablet 2.5 mg PO BID levothyroxine 100 mcg tablet 100 mcg PO QAM famotidine 20 mg tablet 20 mg PO HS loratadine 10 mg Tablet 10 mg PO DAILY melatonin 10 mg Tablet,Chewable 10 mg PO HS furosemide [Lasix] 20 mg tablet 20 mg PO DAILY PRN (Reason: weight gain of 3 lbs) cyanocobalamin (vitamin B-12) [Vitamin B-12] 2,500 mcg Tablet, Sublingual 5,000 mcg SUBLINGUAL DAILY nitroglycerin [Nitrostat] 0.4 mg Tablet, Sublingual 0.4 mg sublingual UD PRN (Reason: Chest Pain) Cranberry Plus Vitamin C 2 softgel PO DAILY Qty: 0 Rx Instructions: 4200mg acetaminophen 500 mg Tablet 1,000 mg PO DAILY MDD 3g PRN (Reason: Flu Symptoms) lidocaine 4 % Adhesive Patch,Medicated 1 patch TOPICAL DAILY Rx Instructions: on 12 hours off 12 hours ondansetron 4 mg Tablet,Disintegrating 4 mg PO .EVERY 6-8 HOURS PRN (Reason: Nausea And Vomiting) diltiazem HCl 180 mg capsule,extended release 24hr 180 mg PO DAILY Rx Instructions: HOLD FOR SBP LESS THAN 110 hydralazine 25 mg tablet 25 mg PO TID Rx Instructions: HOLD FOR SBP LESS THAN 110 bisacodyl 10 mg Suppository 10 mg HI DAILY PRN (Reason: Constipation) Rx Instructions: AFTER 3 DAYS OF NO BOWEL MOVEMENT ferrous sulfate 325 mg (65 mg iron) Tablet 325 mg PO DAILY metoprolol tartrate 50 mg tablet 100 mg PO BID mirtazapine 7.5 mg tablet 15 mg PO HS lutein 10 mg Tablet 0 mg PO DAILY Rx Instructions: Patient takes 2 Lutein Gummies daily strength not specified on MAR menthol-zinc oxide [Calmoseptine] 0.44-20.6 % Ointment 1 applic TOPICAL DAILY PRN (Reason: irritation/breakdown) acetaminophen 500 mg Tablet 1,000 mg PO BID melatonin 5 mg Tablet,Chewable 5 mg PO HS Rx Instructions: take with 10mg to equal 15mg dose Trelegy Ellipta 100-62.5-25 mcg blister with device 1 inh INHALATION DAILY magnesium oxide 400 mg magnesium tablet 400 mg PO QAM Discharge Orders: Discharge Order (Routine); Ordered 06/22/25 Ordered By: Rd Durán/Other Patient Handouts: Understanding Pleural Effusion Admission Data Admit Date/Time: 06/18/25 13:12 Attending Provider: Rd Perkins Admit Provider: Rd Perkins Primary Care Provider: Jamie Norton Other Providers: Josemanuel Montoya Ghassan H Hospital Stay Data Consultations 06/18/25 12:06 ED Decision to Admit Stat 06/20/25 13:01 Consult Pulmonology Routine Diagnostic Imagining Performed 06/18/25 12:33 CT for pulmonary embolism PE [CT angio chest PE protocol] Stat 06/21/25 IR thoracentesis wo tube US Urgent Pending Results Patient Have Any Pending Studies at Discharge: Yes (Pleural Fluid Studies) Discharge Instructions Given to Patient (Per Discharging Provider) Hospitalized for hypoxemic respiratory failure in the setting of volume overload and right pleural effusion. Recheck discussed need for diuretic Total Time Total Time Spent Total Time Spent (In Minutes): 35 minutes spent reviewing pleural studies with the patient, discussing follow- up and care planning. Patient examined. Coding Level of Care Code 32069 INP/OBS DISCH >30 MIN Diagnoses Acute on chronic diastolic CHF (congestive heart failure) I50.33 Insomnia G47.00 Cognitive impairment R41.89 Chest pain R07.9 Chest pain type: unspecified History of arterial occlusion Z86.79 Acute hypoxic respiratory failure J96.01 Stroke I63.9 CVA mechanism: unspecified Pericardial effusion I31.39 Essential hypertension I10 Permanent atrial fibrillation I48.21 Tachy-jazmine syndrome I49.5 Pulmonary hypertension I27.20 Aortic regurgitation I35.1
== END 2025-06-22 15:01 | disposition home or self-care (01) | DRG 291 ==
LOC: ED 10:02 → EDINP 13:12 → 2E 17:19

== ENCOUNTER 2025-07-23 08:11 | Inpatient (IN) ==
--- NOTE | 2025-07-23 08:32 | Emergency Department Note ---
Impression & Plan Shortness of breath, CHF (congestive heart failure), Febrile, Pneumonia, Shingles ED Provider Note NAME: CHARLES WONG AGE: 89 SEX: F : 1935 ARRIVES VIA: Ambulance INFORMANT: Patient ED PROVIDER(S): Isma Elaine DO CHIEF COMPLAINT: Cough, congestion HPI: Patient is an 89-year-old female with a past medical history of CHF, chest pain, cognitive impairment, stroke, thrombocytopenia who presents to the ER for cough and congestion which have been present for the past 24 hours. Patient also notes that she has had a rash on her left buttocks along with sharp stabbing pain radiating down the left leg. She notes severe pain to light touch. Pain radiates on the medial aspect of the left thigh over the medial aspect of the left tib-fib and back to the left buttocks. The pain and rash started several days ago. Denies any fevers. No chest pain. No belly pain. No nausea, vomiting, or diarrhea. No dysuria, urgency, or frequency. No other exacerbating or remitting factors. Is on Eliquis. ADDITIONAL HISTORY OBTAINED: Per HPI Chronic Medical/Social Conditions Affecting Care: Per HPI PAST MEDICAL HISTORY:See Below PAST SURGICAL HISTORY:See Below FAMILY HISTORY:See Below SOCIAL HISTORY:See Below HOME MEDICATIONS:See Below ALLERGIES:See Below VITALS:See Below PHYSICAL EXAMINATION: GENERAL: Sitting up in bed, alert, well appearing, well nourished, no distress, non-toxic EYE EXAM: normal conjunctiva. PERRL and EOM's grossly intact. OROPHARYNX: no exudate, no erythema, lips, buccal mucosa, and tongue normal and mucous membranes are moist NECK: supple, no nuchal rigidity, no adenopathy, non-tender LUNGS: Clear to auscultation. Normal chest wall mechanics HEART: no murmurs, S1 normal and S2 normal ABDOMEN: abdomen soft, non-tender, normo-active bowel sounds, no masses, no rebound or guarding. BACK: Back is symmetrical on inspection and there is no deformity, no midline tenderness, no CVA tenderness. SKIN: Blistering rash on the left gluteus with several areas of scabbing. No surrounding cellulitis. UPPER EXTREMITIES: upper extremities are grossly normal. LOWER EXTREMITIES: Flexion extension bilateral hips knees ankles are intact. DPs 2 out of 4. Gross station intact. NEURO EXAM: Normal sensorium, cranial nerves II-XII grossly intact, normal speech, no gross weakness of arms, no gross weakness of legs. MEDICAL DECISION MAKING: Patient is an 89-year-old female who presents to the ER with a past medical history of CHF and arterial occlusion as well as stroke and A-fib on Eliquis who presents ER for cough and shortness of breath which started over the past 24 hours. She is found to be febrile. IV was established and blood work was obtained. She was given Tylenol for the fever. Chest x-ray suggestive of a left lower lobe infiltrate. Patient was given IV cefepime and vancomycin. Has pain down the left leg which I do feel is consistent with shingles as she has a rash on her left gluteus which is consistent with shingles. Labs showed no significant leukocytosis or anemia. BMP along with LFTs bilirubin and lipase is unremarkable. Troponin negative. Viral panel was negative. Case was discussed with the hospitalist for further evaluation management treatment. Consults/Care Managements Discussions: Per [facility] Triage Nursing notes reviewed. Limited review of prior medical records performed Vital Signs: reviewed and remarkable for no significant abnormalities Differential diagnosis: Differential diagnoses includes but is not limited to gastritis, peptic ulcer disease, GERD, gallbladder disease, pancreatitis, small bowel obstruction, appendicitis, diverticulitis, hernia, urinary tract infection, torsion, [/ectopic (if female)], perforation, trauma, infectious. ER treatment provided: See below Diagnostics interpreted by me include EKG and cardiac monitoring as listed below: -Cardiac Monitoring: An order was placed for continuous cardiac monitoring. The monitor shows a rate of 101 with afib rhythm. -ECG: A-fib rate of 109 Normal axis No PVCs T wave inversions in the inferior leads QTc 468 ST segment elevation in aVL ST depressions in the lateral leads No significant change from October 10 -Laboratory studies:Interpreted by me as stated above in MDM and shown below. Imaging studies: Xrays: As interpreted by me: Portable AP upright 1 view of the chest shows left lower lobe infiltrate CTs show: none Procedures:none Critical Care: None Past Med/Surg History Problem List (Updated 07/23/25 @ 09:52 by Isma Elaine DO) Shingles (Acute) Pneumonia (Acute) Febrile (Acute) CHF (congestive heart failure) (Acute) Shortness of breath (Acute) Bilateral leg edema (Acute) Elevated brain natriuretic peptide (BNP) level (Acute) Acute CHF (Acute) Chest pain (Acute) Acute dyspnea (Acute) Acute on chronic diastolic CHF (congestive heart failure) Intussusception, ileocecal Enteritis due to Norovirus Insomnia Gastroenteritis due to norovirus Cognitive impairment Asymptomatic bacteriuria Acute respiratory alkalosis (Acute) Chest pain (Acute) History of arterial occlusion Acute hyperventilation syndrome (Acute) Acute hypoxic respiratory failure Colonic thickening Arterial occlusion, lower extremity (Acute) PND (post-nasal drip) Stroke (Acute) Pericardial effusion Thrombocytopenia Female bladder prolapse Acute metabolic encephalopathy UTI (urinary tract infection) (Acute) Acute diastolic CHF (congestive heart failure) Elevated troponin Hypokalemia (Acute) Anticoagulation therapy not indicated Dizziness Hypothyroidism DVT prophylaxis Insomnia Depression (Chronic) B12 deficiency Peripheral neuropathy (Chronic) 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) Cellulitis of left orbit (Acute) Stomach ulcer (Acute) GERD (gastroesophageal reflux disease) (Chronic) Vertigo (Acute) Weakness (Acute) Medical History Essential hypertension Permanent atrial fibrillation Presence of permanent cardiac pacemaker Aspiration into lower respiratory tract Periorbital cellulitis of left eye Hyperlipidemia LDL goal <70 Thoracic back pain CVA (cerebral vascular accident) Epidural hematoma Weight loss, unintentional Tricuspid regurgitation Tachy-jazmine syndrome Pulmonary hypertension Dyslipidemia Cerebrovascular disease Benign hypertension Aortic regurgitation Anxiety disorder Headache Surgical History Status post laparoscopic right hemicolectomy (04/03/25) Robotic assisted right hemicolectomy for intussusception, Chambers, 03 April 2025 H/O cervical spine surgery "cervical decompression with evacuation of cervical epidural hematoma 09/22/2012" S/P tonsillectomy H/O: hysterectomy History of bilateral tubal ligation History of appendectomy Family History Other Family history non-contributory Social History Smoking Status: Never smoker Tobacco Type: Cigarettes Second Hand Exposure: No; Do You Dip or Chew Tobacco: No; Hx Alcohol Use: No Hx Substance Use: No Preferred Language: Spanish Communication Ability: Effective Head Of Biology Required: No Beliefs That Will Affect Care: None marital status: / Current Living Situation: Senior Living Current Living Situation Comment: [facility] Feels Safe at Home: Yes Assistive Devices: Walker and Wheelchair Allergies Allergies Allergy/AdvReac Type Severity Reaction Status Date / Time oxycodone AdvReac Intermediate HALLUCINATI Verified 06/06/25 12:59 ONS morphine AdvReac Unknown DELIRIUM Verified 06/06/25 12:59 Home Meds Home Medications Medication Instructions Recorded Confirmed omeprazole 40 mg capsule,delayed 40 mg PO QAM 05/06/18 07/23/25 release atorvastatin 20 mg tablet 20 mg PO HS 11/16/18 07/23/25 docusate sodium 100 mg tablet 100 mg PO DAILY PRN cnstipation 11/16/18 07/23/25 sertraline 50 mg tablet 50 mg PO QAM 11/16/18 07/23/25 donepezil 5 mg tablet 5 mg PO HS 02/09/22 07/23/25 magnesium oxide 400 mg PO QAM 05/13/24 07/23/25 apixaban 2.5 mg tablet (Eliquis) 2.5 mg PO BID 08/31/24 07/23/25 famotidine 20 mg tablet 20 mg PO HS 08/31/24 07/23/25 levothyroxine 100 mcg tablet 100 mcg PO QAM 08/31/24 07/23/25 Cranberry Plus Vitamin C 2 softgel PO DAILY ##0 10/10/24 07/23/25 acetaminophen 500 mg tablet 1,000 mg PO DAILY PRN Flu Symptoms 10/10/24 07/23/25 cyanocobalamin (vitamin B-12) 5,000 mcg sublingual DAILY 10/10/24 07/23/25 2,500 mcg sublingual tablet (Vitamin B-12) furosemide 20 mg tablet (Lasix) 20 mg PO DAILY PRN weight gain of 10/10/24 07/23/25 3 lbs lidocaine 4 % topical patch 1 patch topical DAILY 10/10/24 07/23/25 loratadine 10 mg tablet 10 mg PO DAILY 10/10/24 07/23/25 melatonin 10 mg chewable tablet 10 mg PO HS 10/10/24 07/23/25 nitroglycerin 0.4 mg sublingual 0.4 mg sublingual UD PRN Chest Pain 10/10/24 07/23/25 tablet (Nitrostat) ondansetron 4 mg disintegrating 4 mg PO .EVERY 6-8 HOURS PRN 10/10/24 07/23/25 tablet Nausea And Vomiting bisacodyl 10 mg rectal suppository 10 mg ND DAILY PRN Constipation 04/02/25 07/23/25 diltiazem HCl 180 mg 180 mg PO DAILY 04/02/25 07/23/25 capsule,extended release 24 hr ferrous sulfate 325 mg (65 mg 325 mg PO DAILY 04/02/25 07/23/25 iron) tablet hydralazine 25 mg tablet 25 mg PO TID 04/02/25 07/23/25 lutein 10 mg tablet 0 mg PO DAILY 04/02/25 07/23/25 menthol 0.44 %-zinc oxide 20.6 % 1 applic topical DAILY PRN 04/02/25 07/23/25 topical ointment (Calmoseptine) irritation/breakdown metoprolol tartrate 50 mg tablet 100 mg PO BID 04/02/25 07/23/25 mirtazapine 7.5 mg tablet 15 mg PO HS 04/02/25 07/23/25 acetaminophen 500 mg tablet 1,000 mg PO BID 06/18/25 07/23/25 fluticasone fur. 100 mcg-umeclid 1 inh inhalation DAILY 06/18/25 07/23/25 62.5 mcg-vilant 25 mcg inhalat.powder (Trelegy Ellipta) melatonin 5 mg chewable tablet 5 mg PO HS 06/18/25 07/23/25 Results & Data (ED) Vital Signs Vital Signs - 24 hr 07/23/25 08:17 07/23/25 08:17 07/23/25 08:17 Temperature 38.1 C H Temperature Source Oral Pulse Rate 113 H Pulse Rate [Apical] Pulse Rhythm Regular Pulse Rhythm [Apical] Pulse Strength Normal Pulse Strength [Apical] Respiratory Rate 16 Respiratory Effort / Characteristics Non-Labored Spontaneous Non-Labored Spontaneous Short of Breath Respiratory Depth Normal Normal Respiratory Pattern Regular Regular Blood Pressure 178/87 H Blood Pressure [Left Arm] Blood Pressure Mean 117 Blood Pressure Mean [Left Arm] Blood Pressure Position Lying Blood Pressure Position [Left Arm] Pulse Oximetry 95 95 Oxygen Delivery Method Room Air Room Air Room Air Oxygen Flow Rate Sepsis Recent Fever Within 48 Hours No Sepsis New/Unexplained Change in Mental Status No Sepsis Action Taken by Nursing Physician Notified 07/23/25 08:17 07/23/25 08:19 07/23/25 08:36 Temperature Temperature Source Pulse Rate 99 H 97 H Pulse Rate [Apical] 113 H Pulse Rhythm Regular Pulse Rhythm [Apical] Regular Pulse Strength Pulse Strength [Apical] Normal Respiratory Rate 16 18 Respiratory Effort / Characteristics Non-Labored Spontaneous Short of Breath Respiratory Depth Normal Respiratory Pattern Regular Blood Pressure Blood Pressure [Left Arm] 178/87 H Blood Pressure Mean Blood Pressure Mean [Left Arm] 117 Blood Pressure Position Blood Pressure Position [Left Arm] Lying Pulse Oximetry 95 96 Oxygen Delivery Method Room Air Room Air Oxygen Flow Rate Sepsis Recent Fever Within 48 Hours Sepsis New/Unexplained Change in Mental Status Sepsis Action Taken by Nursing 07/23/25 10:18 07/23/25 10:19 Temperature Temperature Source Pulse Rate Pulse Rate [Apical] 106 H Pulse Rhythm Pulse Rhythm [Apical] Pulse Strength Pulse Strength [Apical] Respiratory Rate 23 Respiratory Effort / Characteristics Spontaneous Respiratory Depth Normal Respiratory Pattern Blood Pressure Blood Pressure [Left Arm] 125/84 Blood Pressure Mean Blood Pressure Mean [Left Arm] 97 Blood Pressure Position Blood Pressure Position [Left Arm] Semi-fowlers Pulse Oximetry 86 L 97 Oxygen Delivery Method Room Air Oxymask Oxygen Flow Rate 3 Sepsis Recent Fever Within 48 Hours Sepsis New/Unexplained Change in Mental Status Sepsis Action Taken by Nursing Laboratory Data 07/23/25 08:37 07/23/25 08:37 Lab Results 07/23/25 07/23/25 07/23/25 Range/Units 08:20 08:37 09:17 WBC 7.71 (4.8-10.8) K/ul RBC 4.56 (4.20-5.40) M/uL Hgb 12.9 (12.0-16.0) g/dL Hct 38.6 (37.0-47.0) % MCV 84.6 (80.0-100.0) fL MCH 28.3 (25.0-34.0) pg MCHC 33.4 (32.0-36.0) g/dL RDW Std Deviation 51.3 H (36.4-46.3) fL RDW Coeff of Alfredo 16.8 H (11.5-14.5) % Plt Count 109 L (130-400) K/uL MPV 11.6 (9.4-12.4) fL Immature Gran % (Auto) 0.1 % Neut % (Auto) 61.7 % Lymph % (Auto) 26.7 % [place] % (Auto) 10.0 % Eos % (Auto) 1.0 % Baso % (Auto) 0.5 % Neut # (Auto) 4.75 (1.40-6.50) K/uL Lymph # (Auto) 2.06 (1.20-3.40) K/uL [place] # (Auto) 0.77 H (0.11-0.59) K/uL Eos # (Auto) 0.08 (0.00-0.50) K/uL Baso # (Auto) 0.04 (0.00-0.20) K/uL Immature Gran # (Auto) 0.01 (0.01-0.20) K/uL Sodium 142 (136-145) mmol/L Potassium 3.9 (3.5-5.1) mmol/L Chloride 106 (98-107) mmol/L Carbon Dioxide 27 (21-32) mmol/L Anion Gap 9 (3-11) BUN 19 (6-23) mg/dl Creatinine 0.81 (0.6-1.2) mg/dl Est Cr Clr Drug Dosing 38.2 ml/min eGFR 69.78 BUN/Creatinine Ratio 23.5 H (10-20) Glucose 98 (70-99(Fasting)) mg/dl Lactate 1.3 (0.4-2.0) mmol/L Calcium 9.1 (8.6-10.3) mg/dl Total Bilirubin 0.7 (0.2-1.0) mg/dl AST 35 (13-39) U/L ALT 33 (7-52) U/L Alkaline Phosphatase 90 (34-104) U/L Troponin I High Sens 6.6 (0-14) pg/ml Total Protein 6.7 (6.0-8.3) gm/dl Albumin 4.4 (3.4-5.0) gm/dl Globulin 2.3 L (2.5-4.0) gm/dl Albumin/Globulin Ratio 1.9 (0.9-2) Lipase 17 (11-82) U/L Procalcitonin 0.13 (0-0.5) ng/ml Adenovirus (PCR) Not Detected (Kalanitected) B. pertussis DNA (PCR) Not Detected (NotDetected) B.parapertussis DNA PCR Not Detected (NotDetected) C. pneumoniae DNA (PCR) Not Detected (NotDetected) Coronavirus OC43 (PCR) Not Detected (NotDetected) Coronavirus HKU1 (PCR) Not Detected (NotDetected) Coronavirus 229E (PCR) Not Detected (NotDetected) SARS-CoV-2 (PCR) Not Detected (NotDetected) Coronavirus NL63 (PCR) Not Detected (NotDetected) Human Metapneumovir PCR Not Detected (NotDetected) Influenza Type A (PCR) Not Detected (NotDetected) Influenza Type B (PCR) Not Detected (NotDetected) M. pneumoniae (PCR) Not Detected (NotDetected) Parainfluenza 1 (PCR) Not Detected (NotDetected) Parainfluenza 2 (PCR) Not Detected (NotDetected) Parainfluenza 3 (PCR) Not Detected (NotDetected) Parainfluenza 4 (PCR) Not Detected (NotDetected) RSV (PCR) Not Detected (NotDetected) Entero/Rhino (PCR) Not Detected (NotDetected) Administered Medications Diltiazem HCl (Diltiazem Hcl 180 Mg Capcr) 180 mg PO DAILY [facility] Stop: 08/22/25 12:01 Last Admin: 07/23/25 13:22 Dose: 180 mg Documented By: MMF Discontinued Medications Acetaminophen (Acetaminophen 325 Mg Tab) 650 mg PO NOW STA Stop: 07/23/25 08:57 Last Admin: 07/23/25 09:50 Dose: 650 mg Documented By: ALIYA Furosemide (Furosemide 40 Mg/4 Ml Vial) 40 mg IV NOW STA Stop: 07/23/25 09:24 Last Admin: 07/23/25 09:50 Dose: 40 mg Documented By: ALIYA Cefepime HCl (Maxipime 2000mg) 2,000 mg in 20 mls @ 5 mls/min IV NOW STA; Protocol Stop: 07/23/25 08:59 Last Admin: 07/23/25 09:54 Dose: 5 mls/min Documented By: ALIYA Vancomycin HCl 1,000 mg/ (Sodium Chloride) 520 mls @ 200 mls/hr IV NOW ONE Stop: 07/23/25 11:31 Last Infusion: 07/23/25 13:04 Dose: Infused Documented By: Admin: 07/23/25 10:00 Dose: 200 mls/hr Documented By: ALIYA Imaging Data Radiologist's Impression: Chest X-Ray 07/23/25 08:19 XR chest 1V portable HISTORY: 89 years-old Female Chest pain, nonspecific COMPARISON: Chest radiograph 06/21/2025, CTA chest 06/18/2025 TECHNIQUE: AP view of the chest FINDINGS: Cardiac silhouette is enlarged. Single lead left subclavian pacer. Atherosclerosis of aorta. No pneumothorax. Small pleural effusions with mild bibasilar densities. Pulmonary vascular congestion with interstitial coarsening. The bones of the chest appear grossly intact. IMPRESSION: 1. Cardiomegaly with interstitial pulmonary edema. 2. Small pleural effusions with bibasilar opacities favoring atelectasis. ACT 112: Negative or not required by law. The above report was generated using voice recognition software. It may contain grammatical, syntax or spelling errors. Electronically signed by: Victorino Cuadra M.D. 07/23/2025 8:56 AM Discharge Plan Visit Data Chief Complaint: Shortness of Breath/Dyspnea Stated Complaint: SOB, POSSIBLE SHINGLES ED Provider: Isma Elaine Discharge Problem: Shortness of breath, CHF (congestive heart failure), Febrile, Pneumonia, Shingles Condition: Fair Discharge Instructions Interventions: ED Discharge Assessment Last Done: 07/23/25 12:03 Discharge Problem: CHF (congestive heart failure) Qualifiers: Heart failure type: unspecified Heart failure chronicity: unspecified Qualified Code(s): I50.9 - Heart failure, unspecified Febrile Qualifiers: Fever type: unspecified Qualified Code(s): R50.9 - Fever, unspecified Pneumonia Qualifiers: Pneumonia type: due to unspecified organism Laterality: unspecified laterality Lung location: unspecified part of lung Qualified Code(s): J18.9 - Pneumonia, unspecified organism Shingles Qualifiers: Herpes zoster complications: without complications Qualified Code(s): B02.9 - Zoster without complications
[2025-07-23] MEDS ORDERED: VANCOMYCIN CONSULT ACTIVE PRN (08:56)
--- NOTE | 2025-07-23 08:58 | XRay Report ---
XR chest 1V portable HISTORY: 89 years-old Female Chest pain, nonspecific COMPARISON: Chest radiograph 06/21/2025, CTA chest 06/18/2025 TECHNIQUE: AP view of the chest FINDINGS: Cardiac silhouette is enlarged. Single lead left subclavian pacer. Atherosclerosis of aorta. No pneum othorax. Small pleural effusions with mild bibasilar densities. Pulmonary vascular congestion with in terstitial coarsening. The bones of the chest appear grossly intact. IMPRESSION: 1. Cardiomegaly with interstitial pulmonary edema. 2. Small pleural effusions with bibasilar opacities favoring atelectasis. ACT 112: Negative or not required by law. The above report was generated using voice recognition software. It may contain grammatical, syntax o r spelling errors. Electronically signed by: Victorino Cuadra M.D. 07/23/2025 8:56 AM
[2025-07-23 09:00] LABS: Hematocrit (blood only) 38.6 % (37.0-47.0); Hemoglobin 12.9 g/dL (12.0-16.0); Immature Granulocytes # (auto) 0.01 K/uL (0.01-0.20); Immature Granulocytes % (auto) 0.1 %; Mean Corpuscular Hemoglobin 28.3 pg (25.0-34.0); Mean Corpuscular Volume 84.6 fL (80.0-100.0); Platelet Count 109 K/uL (130-400); RDW Standard Deviation 51.3 fL (36.4-46.3); Red Blood Count 4.56 M/uL (4.20-5.40); White Blood Count 7.71 K/ul (4.8-10.8)
[2025-07-23 09:15] LABS: Alanine Aminotransferase 33.0 U/L (7-52); Albumin Globulin Ratio 1.9 (0.9-2); Albumin Level 4.4 gm/dl (3.4-5.0); Alkaline Phosphatase 90.0 U/L (34-104); Anion Gap 9.0 (3-11); Bilirubin,Total 0.7 mg/dl (0.2-1.0); Blood Urea Nitrogen 19.0 mg/dl (6-23); Calcium 9.1 mg/dl (8.6-10.3); Carbon Dioxide 27.0 mmol/L (21-32); Chloride 106.0 mmol/L (98-107); Creatinine Clr Calc Pharmacy 38.2 ml/min; Globulin 2.3 gm/dl (2.5-4.0); Glucose 98.0 mg/dl (70-99(Fasting)); Lipase 17.0 U/L (11-82); Potassium 3.9 mmol/L (3.5-5.1); Sodium 142.0 mmol/L (136-145); Total Protein 6.7 gm/dl (6.0-8.3)
[2025-07-23 09:33] LABS: Chlamydia pneumoniae PCR Not Detected (NotDetected); Coronavirus 229E PCR Not Detected (NotDetected); Coronavirus CoV-2 (COVID19)PCR Not Detected (NotDetected); Coronavirus HKU1 PCR Not Detected (NotDetected); Coronavirus NL63 PCR Not Detected (NotDetected); Coronavirus OC43PCR Not Detected (NotDetected); Human Metapneumovirus PCR Not Detected (NotDetected); Parainfluenza Virus 1 PCR Not Detected (NotDetected); Parainfluenza Virus 2 PCR Not Detected (NotDetected); Parainfluenza Virus 3 PCR Not Detected (NotDetected); Parainfluenza Virus 4 PCR Not Detected (NotDetected); Respiratory Syncytial VirusPCR Not Detected (NotDetected); Rhinovirus/Enterovirus PCR Not Detected (NotDetected)
[2025-07-23] MEDS: FUROSEMIDE 40 MG/4 ML VIAL IV STA (09:50)
[2025-07-23] MEDS: ACETAMINOPHEN 325 MG TAB PO STA (09:50)
[2025-07-23] MEDS: CEFEPIME 2000MG 2,000 MG/20 ML SYR IV STA (09:54)
[2025-07-23] MEDS: VANCOMYCIN HCL 1,000 MG in SODIUM CHLORIDE 0.9% 500 ML IV ONE (10:00)
--- NOTE | 2025-07-23 10:09 | Electrocardiogram Report ---
Test Reason : Blood Pressure : */* mmHG Vent. Rate : 109 BPM Atrial Rate : * BPM P-R Int : * ms QRS Dur : 90 ms QT Int : 348 ms P-R-T Axes : * 52 -82 degrees QTcB Int : 468 ms Atrial fibrillation with rapid ventricular response with occasional ventricular-paced complexes and w ith occasional Premature ventricular complexes Abnormal ECG When compared with ECG of 18-Jun-2025 10:07, Premature ventricular complexes are now Present Vent. rate has increased by 28 bpm Confirmed by Tommy Mackay ([id number]) on 07/23/2025 10:09:40 AM Referred By: Confirmed By: Tommy Mackay
[2025-07-23] MEDS ORDERED: POLYETHYLENE (MIRALAX) 17 GM PACK PO PRN (10:53)
[2025-07-23] MEDS ORDERED: NITROGLYCERIN SL 0.4 MG/TAB TAB SL PRN (12:02)
--- NOTE | 2025-07-23 13:09 | CT Scan Report ---
CT OF THE CHEST WITHOUT IV CONTRAST CLINICAL HISTORY: Fever. Pleural effusion. COMPARISON STUDY: Chest CT June 18, 2025. Chest radiograph performed earlier today. CT DOSE: 208.7 mGy.cm TECHNIQUE: Axial images of the chest were obtained without IV contrast. Images were reviewed in the axial, sagittal, and coronal planes. IV contrast was not administered for this examination. Automat ed exposure control was utilized for the study. A dose lowering technique was utilized adhering to t he principles of ALARA. FINDINGS: A left subclavian pacer is in place. Moderate cardiomegaly is again noted. A small pericard ial effusion has mildly increased in size since CT of June 18, 2025. Dilatation of the ascending a jairon is unchanged. The ascending aorta measures 4.1 cm at the level of the main pulmonary artery. The re is no pneumothorax. Moderate right and small left pleural effusions have decreased in size since c hest CT of June 18, 2025. Associated subpleural opacities favor atelectasis. There is no consolida tion to suggest pneumonia. Scattered tiny pulmonary nodules are likely benign. Prominent partially ca lcific mediastinal lymph nodes are unchanged. These are likely benign. IMPRESSION: 1. Moderate right and small left pleural effusions, decreased in size since chest CT of June 18 025. Associated subpleural densities favor atelectasis. No consolidation to suggest pneumonia. 2. Small pericardial effusion, mildly increased in size since prior CT. Moderate cardiomegaly. ACT 112: Negative or not required by law. Electronically signed by: Joseluis Sanchez M.D. 07/23/2025 1:07 PM
--- NOTE | 2025-07-23 13:32 | Pharmacy Report ---
Pharmacy PK ABX Note - Date of Service July 23, 2025 - Assessment and Plan Assessment 89 year old F receiving vancomycin and cefepime for empiric coverage. Pertinent microbiologic data includes: MRSA Nasal Swab ordered, blood cultures x2 pending. * Febrile to 38.1 C on arrival * WBC 7.71 * SCr 0.81 - CrCl 38.2 mL/min * Baseline SCr around 0.8 - patient appears to be at baseline Day #1 of antimicrobial therapy. Plan Vancomycin * Loading dose: 1000 mg IV x 1 (given 07/23 @1000) * Maintenance dose: 1000 mg IV every 18 hours * Regimen is predicted to achieve target AUC/SALLY of 400-600 mg/L.hr * Level will be ordered if regimen continues past 48 hours empiric coverage Pharmacy will continue to follow and will adjust dose/frequency as necessary. Thank you. Pharmacy has transitioned to AUC monitoring for vancomycin. AUC/SALLY is the preferred PK/PD target and is associated with decreased risk of nephrotoxicity compared to traditional trough targets.
[2025-07-23] MEDS: METOPROLOL TARTRATE 100 MG TAB PO SCH (20:32)
[2025-07-23] MEDS: MIRTAZAPINE TAB 15 MG TAB PO SCH (20:33)
[2025-07-23] MEDS: DONEPEZIL HCL 5 MG TAB PO SCH (20:33)
[2025-07-23] MEDS: ATORVASTATIN 20 MG TAB PO SCH (20:33)
[2025-07-23] MEDS: ONDANSETRON INJ 2 MG/ML 2 ML VIAL IV PRN (20:38)
[2025-07-23] MEDS: MELATONIN 3 MG TAB PO SCH (20:38)
[2025-07-23] MEDS: ACETAMINOPHEN 325 MG TAB PO PRN (20:39)
[2025-07-23] MEDS: CEFEPIME 2000MG 2,000 MG/20 ML SYR IV SCH (21:57)
--- NOTE | 2025-07-23 23:30 | History & Physical Report ---
Date of Service July 23, 2025 Assessment & Plan (1) Shingles: (2) CHF (congestive heart failure): (3) Elevated brain natriuretic peptide (BNP) level: (4) Cognitive impairment: Plan Fever of unknown origin Patient is an 89 yo female with an exacerbation of shingles but is also with plural effusions. Concerned that this may be an empema, will hold Eliquis for 48 hours before tapping. Patient with MRSA screen positive, will place on vancomycin and cefepime. jazmine monitor cbc and bmp #acute on chronic hypoxemic respiratory failure #new pleural effusion - Moderate pleural effusion on CT, improved from last time. - Currently on Eliquis for A-fib and for previous arterial occlusion - Will hold Eliquis,consultation of pulmonology versus interventional radiology for thoracentesis likely in 1-2 days - Supportive cares otherwise as noted below #CHF/HFpEF #chest pain #History of pericardial effusion #Hx of pulmonary hypertension -Known history of pericardial effusion, new pleural effusions on chest x-ray today, recent 2-3-week history of fairly abrupt onset severe lower extremity edema anasarca for which they have been diuresing her at [facility] - presentation suggestive of worsening biventricular failure - Reported dry weight is 104 pounds. She is been well above that recently. - Admit PCU as above, -will place on IV lasix x1 and closely monitor - Daily weight #Atrial fibrillation #Status post pacemaker placement - Recent visit for pacemaker interrogation was within normal limits. CHF/HFpEF as above - Telemetry monitoring #Diffuse Vascular Disease #Lower extremity arterial occlusion noted and flown to [place] in 2023. No recurrent or changing symptoms #History of ÓSCAR - Had previously been on CPAP/BiPAP but "could not get the masks to work so has not used it for quite some time" #Hypertension -On diltiazem, furosemide, hydralazine 3 times daily #Hypothyroidism -resume home meds #FEN - Cardiac diet #CODE STATUS - DNR/DNI per her wishes. Admission and Anticipated Discharge Date Admission Date: July 23, 2025 History of Present Illness Chief Complaint: Painful buttock Primary Care Provider: Jamie Norton DO 89-year-old female resident of [facility] history of HFpEF, permanent atrial fibrillation, diffuse vascular disease, stroke, chronic hypoxemic respiratory failure, hypertension, hyperlipidemia, hypothyroidism, ÓSCAR presents to the emergency department with worsening pain on her buttocks whenio has shy worsening basil past 24-48 hours. This is accompanied by pain going down her left left. According to patient, her pain has worsened to the point that she decided to c ome into the hospital. Another complaint she was having is SOB, but she does not report much detail regarding this symptom. She just reports that it has worsened today. She denies any fever, chills, nausea, vomiting. In the ED she did have a fever. Allergies Allergy/AdvReac Type Severity Reaction Status Date / Time oxycodone AdvReac Intermediate HALLUCINATI Verified 06/06/25 12:59 ONS morphine AdvReac Unknown DELIRIUM Verified 06/06/25 12:59 Home Medications Medication Instructions Recorded Confirmed Type omeprazole 40 mg capsule,delayed 40 mg PO QAM 05/06/18 07/23/25 History release atorvastatin 20 mg tablet 20 mg PO HS 11/16/18 07/23/25 History docusate sodium 100 mg tablet 100 mg PO DAILY PRN cnstipation 11/16/18 07/23/25 History sertraline 50 mg tablet 50 mg PO QAM 11/16/18 07/23/25 History donepezil 5 mg tablet 5 mg PO HS 02/09/22 07/23/25 History magnesium oxide 400 mg PO QAM 05/13/24 07/23/25 History apixaban 2.5 mg tablet (Eliquis) 2.5 mg PO BID 08/31/24 07/23/25 History famotidine 20 mg tablet 20 mg PO HS 08/31/24 07/23/25 History levothyroxine 100 mcg tablet 100 mcg PO QAM 08/31/24 07/23/25 History Cranberry Plus Vitamin C 2 softgel PO DAILY ##0 10/10/24 07/23/25 History acetaminophen 500 mg tablet 1,000 mg PO DAILY PRN Flu Symptoms 10/10/24 07/23/25 History cyanocobalamin (vitamin B-12) 5,000 mcg sublingual DAILY 10/10/24 07/23/25 History 2,500 mcg sublingual tablet (Vitamin B-12) furosemide 20 mg tablet (Lasix) 20 mg PO DAILY PRN weight gain of 10/10/24 07/23/25 History 3 lbs lidocaine 4 % topical patch 1 patch topical DAILY 10/10/24 07/23/25 History loratadine 10 mg tablet 10 mg PO DAILY 10/10/24 07/23/25 History melatonin 10 mg chewable tablet 10 mg PO HS 10/10/24 07/23/25 History nitroglycerin 0.4 mg sublingual 0.4 mg sublingual UD PRN Chest Pain 10/10/24 07/23/25 History tablet (Nitrostat) ondansetron 4 mg disintegrating 4 mg PO .EVERY 6-8 HOURS PRN 10/10/24 07/23/25 History tablet Nausea And Vomiting bisacodyl 10 mg rectal suppository 10 mg SD DAILY PRN Constipation 04/02/25 07/23/25 History diltiazem HCl 180 mg 180 mg PO DAILY 04/02/25 07/23/25 History capsule,extended release 24 hr ferrous sulfate 325 mg (65 mg 325 mg PO DAILY 04/02/25 07/23/25 History iron) tablet hydralazine 25 mg tablet 25 mg PO TID 04/02/25 07/23/25 History lutein 10 mg tablet 0 mg PO DAILY 04/02/25 07/23/25 History menthol 0.44 %-zinc oxide 20.6 % 1 applic topical DAILY PRN 04/02/25 07/23/25 History topical ointment (Calmoseptine) irritation/breakdown metoprolol tartrate 50 mg tablet 100 mg PO BID 04/02/25 07/23/25 History mirtazapine 7.5 mg tablet 15 mg PO HS 04/02/25 07/23/25 History acetaminophen 500 mg tablet 1,000 mg PO BID 06/18/25 07/23/25 History fluticasone fur. 100 mcg-umeclid 1 inh inhalation DAILY 06/18/25 07/23/25 History 62.5 mcg-vilant 25 mcg inhalat.powder (Trelegy Ellipta) melatonin 5 mg chewable tablet 5 mg PO HS 06/18/25 07/23/25 History Past Med/Surg History Problem List Shingles (Acute) Pneumonia (Acute) Febrile (Acute) CHF (congestive heart failure) (Acute) Shortness of breath (Acute) Bilateral leg edema (Acute) Elevated brain natriuretic peptide (BNP) level (Acute) Acute CHF (Acute) Chest pain (Acute) Acute dyspnea (Acute) Acute on chronic diastolic CHF (congestive heart failure) Intussusception, ileocecal Enteritis due to Norovirus Insomnia Gastroenteritis due to norovirus Cognitive impairment Asymptomatic bacteriuria Acute respiratory alkalosis (Acute) Chest pain (Acute) History of arterial occlusion Acute hyperventilation syndrome (Acute) Acute hypoxic respiratory failure Colonic thickening Arterial occlusion, lower extremity (Acute) PND (post-nasal drip) Stroke (Acute) Pericardial effusion Thrombocytopenia Female bladder prolapse Acute metabolic encephalopathy UTI (urinary tract infection) (Acute) Acute diastolic CHF (congestive heart failure) Elevated troponin Hypokalemia (Acute) Anticoagulation therapy not indicated Dizziness Hypothyroidism DVT prophylaxis Insomnia Depression (Chronic) B12 deficiency Peripheral neuropathy (Chronic) 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) Cellulitis of left orbit (Acute) Stomach ulcer (Acute) GERD (gastroesophageal reflux disease) (Chronic) Vertigo (Acute) Weakness (Acute) Medical History Essential hypertension Permanent atrial fibrillation Presence of permanent cardiac pacemaker Aspiration into lower respiratory tract Periorbital cellulitis of left eye Hyperlipidemia LDL goal <70 Thoracic back pain CVA (cerebral vascular accident) Epidural hematoma Weight loss, unintentional Tricuspid regurgitation Tachy-jazmine syndrome Pulmonary hypertension Dyslipidemia Cerebrovascular disease Benign hypertension Aortic regurgitation Anxiety disorder Headache Surgical History Status post laparoscopic right hemicolectomy (04/03/25) Robotic assisted right hemicolectomy for intussusception, [place], 03 April 2025 H/O cervical spine surgery "cervical decompression with evacuation of cervical epidural hematoma 09/22/2012" S/P tonsillectomy H/O: hysterectomy History of bilateral tubal ligation History of appendectomy Family History Other Family history non-contributory Social History Smoking Status: Former smoker Tobacco Type: Cigarettes Second Hand Exposure: No; Do You Dip or Chew Tobacco: No; Hx Alcohol Use: No Hx Substance Use: No Preferred Language: Yoruba Communication Ability: Effective 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 Beliefs That Will Affect Care: None marital status: / Current Living Situation[facility] Current Living Situation Comment: [facility] Feels Safe at Home: Yes Assistive Devices: Walker and Wheelchair Review of Systems Review of Systems: Unobtainable due to cognitive status Physical Exam Constitutional: WD/WN, vitals as above Eyes: PERRL, conjunctivae normal, anicteric sclerae Neck: trachea midline, no thyromegaly Respiratory: normal respiratory effort, lungs clear to auscultation Cardiovascular: Rate/Rhythm: regular rate and + irregularly irregular Gastrointestinal (Abdomen): normal bowel sounds, soft, nontender, no hepatosplenomegaly Musculoskeletal: no cyanosis or clubbing, extremities motor strength 5/5 Neurologic: PERRL, EOMI, accommodation nl, no face palsy, no dysarthria Psychiatric: Orientation: alert, oriented to person, oriented to place and co operative Lymphatic: no cervical or axillary lymphadenopathy Results & Data Results & Data Vital Signs (Past 12 Hours) Vital Signs Temp Pulse Pulse Resp BP BP Pulse Ox 07/23/25 20:04 36.9 C 105 H 26 H 160/72 H 91 07/23/25 20:00 07/23/25 18:39 94 H 07/23/25 18:00 99 07/23/25 17:15 07/23/25 17:15 94 H 07/23/25 17:15 07/23/25 17:15 36.9 C 90 164/76 H 99 07/23/25 15:53 87 07/23/25 14:57 07/23/25 14:00 78 29 H 143/71 H 99 07/23/25 13:00 91 H 28 H 130/78 98 07/23/25 12:00 90 30 H 151/64 H 96 Pulse Ox O2 Del Method O2 Del Method O2 Flow Rate O2 Flow Rate 07/23/25 20:04 Room Air 07/23/25 20:00 Oxymask 2 07/23/25 18:39 07/23/25 18:00 Oxymask 3 07/23/25 17:15 99 Oxymask 3 07/23/25 17:15 07/23/25 17:15 Oxymask 3 07/23/25 17:15 Oxymask 3 07/23/25 15:53 07/23/25 14:57 99 Room Air 07/23/25 14:00 Oxymask 3 07/23/25 13:00 Oxymask 3 07/23/25 12:00 Oxymask 3 PG Care Time/CCT Total # of Minutes Spent Total Time Spent with Patient: Total time spent is greater than 50% in coordination of care (as documented) at patient's floor/unit and/or counseling patient: Coding Level of Care Code 82829 INT INP/OBS CARE 3/75MIN Diagnoses Shingles B02.9 Herpes zoster complications: without complications CHF (congestive heart failure) I50.9 Heart failure chronicity: unspecified Heart failure type: unspecified Elevated brain natriuretic peptide (BNP) level R79.89 Cognitive impairment R41.89 (1) Shingles Herpes zoster complications: without complications Qualified Code(s): B02.9 - Zoster without complications (2) CHF (congestive heart failure) Heart failure chronicity: unspecified Heart failure type: unspecified Qualified Code(s): I50.9 - Heart failure, unspecified
[2025-07-23] MEDS: FUROSEMIDE INJ 20 MG/2 ML VIAL IV ONE (23:55)
[2025-07-24] MEDS: VANCOMYCIN HCL / NSS 1,000 MG/270 ML BAG IV SCH (03:23)
[2025-07-24] MEDS: LEVOTHYROXINE SODIUM 100 MCG TABLET PO SCH (05:44)
[2025-07-24 07:18] LABS: Hematocrit (blood only) 40.6 % (37.0-47.0); Hemoglobin 13.3 g/dL (12.0-16.0); Mean Corpuscular Hemoglobin 27.9 pg (25.0-34.0); Mean Corpuscular Volume 85.1 fL (80.0-100.0); Platelet Count 122 K/uL (130-400); RDW Standard Deviation 51.8 fL (36.4-46.3); Red Blood Count 4.77 M/uL (4.20-5.40); White Blood Count 5.48 K/ul (4.8-10.8)
[2025-07-24] MEDS: FLUTICASONE FUROATE 100MCG 14 PUFFS/INHALER INH SCH (07:44)
[2025-07-24] MEDS: SERTRALINE HCL 50 MG TABLET PO SCH (07:44)
[2025-07-24] MEDS: UMECLIDINIUM/VILANTEROL 62.5/25MCG 7 PUFFS/INHALER INH SCH (07:44)
[2025-07-24 07:59] LABS: Anion Gap 7.0 (3-11); Blood Urea Nitrogen 20.0 mg/dl (6-23); Calcium 8.9 mg/dl (8.6-10.3); Carbon Dioxide 31.0 mmol/L (21-32); Chloride 103.0 mmol/L (98-107); Creatinine Clr Calc Pharmacy 33.9 ml/min; Glucose 94.0 mg/dl (70-99(Fasting)); Potassium 4.0 mmol/L (3.5-5.1); Sodium 141.0 mmol/L (136-145)
[2025-07-24 08:36] LABS: Appearance Urine Clear (Clear); Bacteria Urine Automated None Seen (None Seen); Cast Urine Automated 0-2 /lpf (0-2); Epithelial Cell Urine Auto 0-2 /hpf (0-2); Glucose Urine UA Negative (Negative); WBC Urine Automated 0-5 /hpf (0-5)
[2025-07-24] MEDS ORDERED: NON-FORMULARY MEDICATION (Fluticasone-Umeclidin-Vilanter [Trelegy Ellipta] 100-62.5-25 mcg INH SCH (09:00)
--- NOTE | 2025-07-24 14:30 | Hospitalist Progress Note ---
Date of Service July 24, 2025 Assessment & Plan (1) Shingles: (2) CHF (congestive heart failure): (3) Elevated brain natriuretic peptide (BNP) level: (4) Cognitive impairment: Plan Fever of unknown origin Patient is an 89 yo female with an exacerbation of shingles but is also with plural effusions. Concerned that this may be an empema, will hold Eliquis for 48 hours before tapping. Patient with MRSA screen positive, will place on vancomycin and cefepime. jazmine monitor cbc and bmp #acute on chronic hypoxemic respiratory failure #new pleural effusion - Moderate pleural effusion on CT, improved from last time. - Currently on Eliquis for A-fib and for previous arterial occlusion - Will hold Eliquis, -will consult pulmonology for thoracocentesis likely to be completed tomorrow. - Supportive cares otherwise as noted below -orderded additional lasix, placed mercedes due to pain from shingles #shingles will place on valcyclovir, added tylenol scheduled gabapentin, ordered one time dose of NSAID ordered mercedes #CHF/HFpEF #chest pain #History of pericardial effusion #Hx of pulmonary hypertension -Known history of pericardial effusion, new pleural effusions on chest x-ray today, recent 2-3-week history of fairly abrupt onset severe lower extremity edema anasarca for which they have been diuresing her at [facility] - presentation suggestive of worsening biventricular failure - Reported dry weight is 104 pounds. She is been well above that recently. - Admit PCU as above, -will place on IV lasix x1 and closely monitor - Daily weight #Atrial fibrillation #Status post pacemaker placement - Recent visit for pacemaker interrogation was within normal limits. CHF/HFpEF as above - Telemetry monitoring #Diffuse Vascular Disease #Lower extremity arterial occlusion noted and flown to [place] in 2023. No recurrent or changing symptoms #History of ÓSCAR - Had previously been on CPAP/BiPAP but "could not get the masks to work so has not used it for quite some time" #Hypertension -On diltiazem #Hypothyroidism -resume home meds #FEN - Cardiac diet #CODE STATUS - DNR/DNI per her wishes. Admission and Anticipated Discharge Date Admission Date: July 23, 2025 Subjective Patient reports her pain is better controlled after tylenol and NSAIDs. Will monitor. Physical Exam Constitutional: WD/WN, vitals as above Eyes: PERRL, conjunctivae normal, anicteric sclerae Neck: trachea midline, no thyromegaly Respiratory: normal respiratory effort, lungs clear to auscultation Cardiovascular: Rate/Rhythm: regular rate and + irregularly irregular Gastrointestinal (Abdomen): normal bowel sounds, soft, nontender, no hepatosplenomegaly Musculoskeletal: no cyanosis or clubbing, extremities motor strength 5/5 Neurologic: PERRL, EOMI, accommodation nl, no face palsy, no dysarthria Psychiatric: Orientation: alert, oriented to person, oriented to place and cooperative Lymphatic: no cervical or axillary lymphadenopathy Results & Data Results & Data Vital Signs (Past 12 Hours) Vital Signs Temp Pulse Pulse Resp BP BP Pulse Ox 07/24/25 14:00 76 07/24/25 14:00 07/24/25 10:56 36.7 C 79 145/64 H 97 07/24/25 08:00 81 07/24/25 08:00 07/24/25 07:02 36.6 C 88 19 170/77 H 96 07/24/25 03:29 36.5 C 80 18 155/76 H 96 O2 Del Method O2 Del Method O2 Flow Rate O2 Flow Rate 07/24/25 14:00 07/24/25 14:00 Oxymask 2 07/24/25 10:56 Oxymask 2 07/24/25 08:00 07/24/25 08:00 Oxymask 2 07/24/25 07:02 Oxymask 07/24/25 03:29 Oxymask 2 PG Care Time/CCT Total # of Minutes Spent Total Time Spent with Patient: Total time spent is greater than 50% in coordination of care (as documented) at patient's floor/unit and/or counseling patient: Coding Level of Care Code 45020 SUB INP/OBS CARE 3/50MIN Diagnoses Shingles B02.9 Herpes zoster complications: without complications CHF (congestive heart failure) I50.9 Heart failure chronicity: unspecified Heart failure type: unspecified Elevated brain natriuretic peptide (BNP) level R79.89 Cognitive impairment R41.89 (1) Shingles Herpes zoster complications: without complications Qualified Code(s): B02.9 - Zoster without complications (2) CHF (congestive heart failure) Heart failure chronicity: unspecified Heart failure type: unspecified Qualified Code(s): I50.9 - Heart failure, unspecified
[2025-07-24] MEDS: FUROSEMIDE 40 MG/4 ML VIAL IV ONE (14:48)
[2025-07-24] MEDS: LIDOCAINE 2% JELLY 5 ML TUBE EXT ONE (17:25)
[2025-07-24] MEDS: NAPROXEN 250 MG TAB PO STA (17:51)
[2025-07-24] MEDS: ACETAMINOPHEN 325 MG TAB PO SCH (21:13)
[2025-07-24] MEDS: GABAPENTIN 100 MG CAP PO SCH (21:14)
[2025-07-25 06:39] LABS: Creatinine Clr Calc Pharmacy 25.0 ml/min
--- NOTE | 2025-07-25 08:03 | Hospitalist Progress Note ---
Date of Service July 25, 2025 Assessment & Plan (1) Shingles: (2) CHF (congestive heart failure): (3) Elevated brain natriuretic peptide (BNP) level: (4) Cognitive impairment: Plan Fever of unknown origin Patient is an 89 yo female with an exacerbation of shingles pulmonary does not feel pneumonia or empyema. Fever could be from shingles or possible pre- existing UTI #acute on chronic hypoxemic respiratory failure, resolved # Pneumonia ruled out - Moderate pleural effusion on CT, pulmonary medicine does not feel appropriate to perform thoracentesis - Initiated on antibiotics, vancomycin stopped with negative MRSA nasal screen, will complete 3 days of cefepime due to concern for possible prehospital UTI as evidence on May culture -ordered additional lasix, placed mercedes due to pain from shingles #shingles will place on valcyclovir, added tylenol scheduled gabapentin, ordered one time dose of NSAID ordered mercedes, patient does not want go home with Mercedes will try attempted voiding trial on 07/26/2025 #CHF/HFpEF not in exacerbation #chest pain #History of pericardial effusion #Hx of pulmonary hypertension -Known history of pericardial effusion, new pleural effusions on chest x-ray , recent 2-3-week history of fairly abrupt onset severe lower extremity edema anasarca for which they have been diuresing her at [facility] - presentation suggestive of worsening biventricular failure - Reported dry weight is 104 pounds. She is been well above that recently. - - Imaging shows improvement of pericardial fluid #Atrial fibrillation #Status post pacemaker placement - Recent visit for pacemaker interrogation was within normal limits. CHF/HFpEF as above - Restart Eliquis therapy 07/26/2025 #Diffuse Vascular Disease #Lower extremity arterial occlusion noted and flown to [place] in 2023. No recurrent or changing symptoms #History of ÓSCAR - Had previously been on CPAP/BiPAP but "could not get the masks to work so has not used it for quite some time" #Hypertension -On diltiazem #Hypothyroidism -resume home meds #FEN - Cardiac diet #CODE STATUS - DNR/DNI per her wishes. Admission and Anticipated Discharge Date Admission Date: July 23, 2025 Subjective Patient is feeling better still having shingles pain in her WILL area. Pulmonary does not feel she has healthcare associated pneumonia or infective empyema. Her last discharge in May she had a confirmed E. coli greater than 100,000 urinary culture this was never treated curious whether this could be the cause of some of her febrile symptoms versus the shingles outbreak themselves. We will treat this urinary infection with 3 days of the cefepime as a precaution Physical Exam Physical Exam: Pleasant female no coughing Lung exam is decreased at the bases but otherwise clear Results & Data Results & Data Vital Signs (Past 12 Hours) Vital Signs Temp Pulse Pulse Pulse Resp BP Pulse Ox 07/25/25 07:36 97.9 F 83 18 136/65 93 07/25/25 03:00 97.5 F L 87 18 176/77 H 91 07/24/25 22:51 83 07/24/25 22:38 98.2 F 79 18 124/67 90 07/24/25 20:00 O2 Del Method O2 Flow Rate 07/25/25 07:36 Room Air 07/25/25 03:00 Room Air 07/24/25 22:51 07/24/25 22:38 Room Air 07/24/25 20:00 Oxymask 2 Laboratory Results Reviewed creatinine and GFR PG Care Time/CCT Total # of Minutes Spent Total Time Spent with Patient: Total time spent is greater than 50% in coordination of care (as documented) at patient's floor/unit and/or counseling patient: Coding Level of Care Code 03513 SUB INP/OBS CARE 3/50MIN Diagnoses Shingles B02.9 Herpes zoster complications: without complications CHF (congestive heart failure) I50.9 Heart failure chronicity: unspecified Heart failure type: unspecified Elevated brain natriuretic peptide (BNP) level R79.89 Cognitive impairment R41.89 (1) Shingles Herpes zoster complications: without complications Qualified Code(s): B02.9 - Zoster without complications (2) CHF (congestive heart failure) Heart failure chronicity: unspecified Heart failure type: unspecified Qualified Code(s): I50.9 - Heart failure, unspecified
--- NOTE | 2025-07-25 09:14 | Pulmonary Consultation ---
Date of Consultation July 25, 2025 Assessment & Plan (1) Bilateral pleural effusion: (2) CHF (congestive heart failure): Heart failure chronicity: unspecified Heart failure type: unspecified Qualified Code(s): I50.9 - Heart failure, unspecified Plan Pulmonary has been consulted for thoracentesis. I reviewed her CT imaging, she has bilateral pleural effusions, they are actually smaller than previously. Do not appear complicated. I do not see any evidence of pneumonia on CT imaging either. Some mild atelectasis associated with effusions appreciated only. Patient is not having any respiratory symptoms at this time. Denies cough, phlegm production. Fevers have resolved. Procalcitonin is low. Previous thoracentesis showed transudative effusion. Has underlying congestive heart failure. Last echo was in 2023, consider repeating. No indication for thoracentesis at this time. No evidence of pneumonia on imaging either, no indication to treat for CAP at th is time. Recommend diuresing until euvolemic as tolerated. Follow renal function. Can resume Eliquis from pulmonary standpoint. Case was discussed with bedside RN. Plans communicated with primary physician. Thank you for this consult. Pulmonary will sign off at this time. Please call me directly with any questions. History of Present Illness Reason for Consultation: fever/ thoracocenthesis Requesting Physician: Newton Hunt MD Attending Physician: Newton Hunt MD History of Present Illness Patient is a 89-year-old female with a past medical history significant for HFpEF, permanent atrial fibrillation on Eliquis status post pacemaker placement, history of bilateral pleural effusions (right thoracentesis 06/21/2025 showing transudative fluid), peripheral vascular disease with known lower extremity arterial occlusion, history of CVA, hypertension, hypothyroidism, ÓSCAR without home CPAP, history of pericardial effusion, aortic regurgitation and cognitive impairment. Patient presented to the hospital on 07/23/2025 for evaluation of worsening pain in her buttocks that was radiating down her left leg. Endorse some shortness of breath but no change compared to her chronic dyspnea. The patient underwent imaging of the chest with CT without contrast which showed bilateral pleural effusions that had decreased in size compared to 06/18/2025 wi th associated atelectasis. No consolidation that would suggest pneumonia. Small pericardial effusion was also appreciated as well as cardiomegaly. The patient had fevers in the emergency department which have since resolved. Her Eliquis was placed on hold and pulmonary has been consulted for fevers and thoracentesis. When examined the patient today she is resting comfortably in bed. She says she is having less pain from her shingles and less radiating pain. She is on room air. She denies any shortness of breath, cough or wheezing. Has not been having recurrent fevers. She says that her son recently had shingles, this is likely how she got it. Lungs are clear to auscultation, slightly diminished at bases. No wheezing. Nontachypneic. Pertinent history: Echocardiogram 04/10/2024: EF is 60 to 65%. Normal LV size and function. Mild concentric LVH. Intermediate diastolic function. Normal RV size and function (RVSP 26 mmHg). Aortic valve sclerosis without stenosis. Small no ncircumferential pericardial effusion. Right thoracentesis 06/21/2025: 600 cc of serosanguineous fluid removed. 33% lymphocytes, LDH 66, protein 3.2. Cultures negative. Glucose 110. Transudative. Cytology not sent. Allergies Allergy/AdvReac Type Severity Reaction Status Date / Time oxycodone AdvReac Intermediate HALLUCINATI Verified 06/06/25 12:59 ONS morphine AdvReac Unknown DELIRIUM Verified 06/06/25 12:59 Home Medications Medication Instructions Recorded Confirmed Type omeprazole 40 mg capsule,delayed 40 mg PO QAM 05/06/18 07/23/25 History release atorvastatin 20 mg tablet 20 mg PO HS 11/16/18 07/23/25 History docusate sodium 100 mg tablet 100 mg PO DAILY PRN cnstipation 11/16/18 07/23/25 History sertraline 50 mg tablet 50 mg PO QAM 11/16/18 07/23/25 History donepezil 5 mg tablet 5 mg PO HS 02/09/22 07/23/25 History magnesium oxide 400 mg PO QAM 05/13/24 07/23/25 History apixaban 2.5 mg tablet (Eliquis) 2.5 mg PO BID 08/31/24 07/23/25 History famotidine 20 mg tablet 20 mg PO HS 08/31/24 07/23/25 History levothyroxine 100 mcg tablet 100 mcg PO QAM 08/31/24 07/23/25 History Cranberry Plus Vitamin C 2 softgel PO DAILY ##0 10/10/24 07/23/25 History acetaminophen 500 mg tablet 1,000 mg PO DAILY PRN Flu Symptoms 10/10/24 07/23/25 History cyanocobalamin (vitamin B-12) 5,000 mcg sublingual DAILY 10/10/24 07/23/25 History 2,500 mcg sublingual tablet (Vitamin B-12) furosemide 20 mg tablet (Lasix) 20 mg PO DAILY PRN weight gain of 10/10/24 07/23/25 History 3 lbs lidocaine 4 % topical patch 1 patch topical DAILY 10/10/24 07/23/25 History loratadine 10 mg tablet 10 mg PO DAILY 10/10/24 07/23/25 History melatonin 10 mg chewable tablet 10 mg PO HS 10/10/24 07/23/25 History nitroglycerin 0.4 mg sublingual 0.4 mg sublingual UD PRN Chest Pain 10/10/24 07/23/25 History tablet (Nitrostat) ondansetron 4 mg disintegrating 4 mg PO .EVERY 6-8 HOURS PRN 10/10/24 07/23/25 History tablet Nausea And Vomiting bisacodyl 10 mg rectal suppository 10 mg MO DAILY PRN Constipation 04/02/25 07/23/25 History diltiazem HCl 180 mg 180 mg PO DAILY 04/02/25 07/23/25 History capsule,extended release 24 hr ferrous sulfate 325 mg (65 mg 325 mg PO DAILY 04/02/25 07/23/25 History iron) tablet hydralazine 25 mg tablet 25 mg PO TID 04/02/25 07/23/25 History lutein 10 mg tablet 0 mg PO DAILY 04/02/25 07/23/25 History menthol 0.44 %-zinc oxide 20.6 % 1 applic topical DAILY PRN 04/02/25 07/23/25 History topical ointment (Calmoseptine) irritation/breakdown metoprolol tartrate 50 mg tablet 100 mg PO BID 04/02/25 07/23/25 History mirtazapine 7.5 mg tablet 15 mg PO HS 04/02/25 07/23/25 History acetaminophen 500 mg tablet 1,000 mg PO BID 06/18/25 07/23/25 History fluticasone fur. 100 mcg-umeclid 1 inh inhalation DAILY 06/18/25 07/23/25 History 62.5 mcg-vilant 25 mcg inhalat.powder (Trelegy Ellipta) melatonin 5 mg chewable tablet 5 mg PO HS 06/18/25 07/23/25 History Patient History Medical History Essential hypertension Permanent atrial fibrillation Presence of permanent cardiac pacemaker Aspiration into lower respiratory tract Periorbital cellulitis of left eye Hyperlipidemia LDL goal <70 Thoracic back pain CVA (cerebral vascular accident) Epidural hematoma Weight loss, unintentional Tricuspid regurgitation Tachy-jazmine syndrome Pulmonary hypertension Dyslipidemia Cerebrovascular disease Benign hypertension Aortic regurgitation Anxiety disorder Headache Surgical History Status post laparoscopic right hemicolectomy (04/03/25) Robotic assisted right hemicolectomy for intussusception, Burns, 03 April 2025 H/O cervical spine surgery "cervical decompression with evacuation of cervical epidural hematoma 09/22/2012" S/P tonsillectomy H/O: hysterectomy History of bilateral tubal ligation History of appendectomy Family History Other Family history non-contributory Social History Smoking Status: Former smoker Tobacco Type: Cigarettes Second Hand Exposure: No; Do You Dip or Chew Tobacco: No; Hx Alcohol Use: No Hx Substance Use: No Preferred Language: Somali Communication Ability: Effective [employer] Required: No Beliefs That Will Affect Care: None marital status: / Current Living Situation: Residential Current Living Situation Comment: [facility] Feels Safe at Home: Yes Assistive Devices: Walker and Wheelchair Review of Systems Review of Systems: A 12 point review of systems was obtained in detail. Negative except as noted in HPI. Physical Exam Physical Exam: Physical examination: General: elderly female, thin, appears comfortable, resting in bed. Not in distress. HEENT: Normocephalic, atraumatic. Extraocular movements intact. Cardiovascular: Heart is a regular rate and rhythm, no murmurs appreciated on my exam. No significant lower extremity edema. Lungs: Clear bilaterally, no wheezing appreciated. No crackles. Nontachypneic. Resting comfortably on room air. Slightly diminished at bases. Abdomen: Nondistended, flat, nontender. Neurologic: Awake and alert, oriented. CN II through XII are grossly intact. Speech is fluent. Nonfocal exam. Psychiatric: Appropriate cooperative during my exam. Results & Data Results & Data Vital Signs (Past 12 Hours) Vital Signs Temp Pulse Pulse Pulse Resp BP Pulse Ox 07/25/25 07:36 36.6 C 83 18 136/65 93 07/25/25 03:00 36.4 C L 87 18 176/77 H 91 07/24/25 22:51 83 07/24/25 22:38 36.8 C 79 18 124/67 90 O2 Del Method 07/25/25 07:36 Room Air 07/25/25 03:00 Room Air 07/24/25 22:51 07/24/25 22:38 Room Air PG Care Time/CCT Total # of Minutes Spent Total Time Spent with Patient: Total time spent is greater than 50% in coordination of care (as documented) at patient's floor/unit and/or counseling patient: [place] [address] IN/OBS CONSULT LVL 4,60M Patient Type New History Detailed Exam Detailed Medical Decision Making Moderate Complexity Diagnoses Bilateral pleural effusion J90 CHF (congestive heart failure) I50.9 Heart failure chronicity: unspecified Heart failure type: unspecified
[2025-07-25] MEDS: KETOROLAC TROMETHAMINE 15 MG/ML VIAL IV ONE (15:44)
[2025-07-25] MEDS: GABAPENTIN 100 MG CAP PO ONE (16:47)
[2025-07-25] MEDS: KETOROLAC TROMETHAMINE 15 MG/ML VIAL IV PRN (21:22)
[2025-07-25] MEDS: APIXABAN 2.5 MG TAB PO SCH (21:23)
[2025-07-25] MEDS: GABAPENTIN 100 MG CAP PO SCH (21:23)
[2025-07-26 06:22] LABS: Creatinine Clr Calc Pharmacy 26.7 ml/min
[2025-07-26] MEDS: GABAPENTIN 100 MG CAP PO ONE (13:09)
--- NOTE | 2025-07-26 18:07 | Hospitalist Progress Note ---
Date of Service July 26, 2025 Assessment & Plan (1) Shingles: (2) CHF (congestive heart failure): (3) Elevated brain natriuretic peptide (BNP) level: (4) Cognitive impairment: Plan Fever likely shingles or uti poa Patient is an 89 yo female with an exacerbation of shingles pulmonary does not feel pneumonia or empyema. Fever could be from shingles or possible pre- existing UTI #acute on chronic hypoxemic respiratory failure, resolved # Pneumonia ruled out - Moderate pleural effusion on CT, pulmonary medicine does not feel appropriate to perform thoracentesis - Initiated on antibiotics, vancomycin stopped with negative MRSA nasal screen, will complete 3 days of cefepime due to concern for possible prehospital UTI as evidence on May culture -will removed mercedes 07/26/25 #shingles will place on valcyclovir, added tylenol scheduled gabapentin, ordered one time dose of NSAID attempted voiding trial on 07/26/2025 #CHF/HFpEF not in exacerbation #chest pain #History of pericardial effusion #Hx of pulmonary hypertension -Known history of pericardial effusion, new pleural effusions on chest x-ray , recent 2-3-week history of fairly abrupt onset severe lower extremity edema anasarca for which they have been diuresing her at [facility] - presentation suggestive of worsening biventricular failure - Reported dry weight is 104 pounds. She is been well above that recently. - - Imaging shows improvement of pericardial fluid #Atrial fibrillation #Status post pacemaker placement - Recent visit for pacemaker interrogation was within normal limits. CHF/HFpEF as above - Restart Eliquis therapy 07/26/2025 #Diffuse Vascular Disease #Lower extremity arterial occlusion noted and flown to [place] in 2023. No recurrent or changing symptoms #History of ÓSCAR - Had previously been on CPAP/BiPAP but "could not get the masks to work so has not used it for quite some time" #Hypertension -On diltiazem #Hypothyroidism -resume home meds #FEN - Cardiac diet #CODE STATUS - DNR/DNI per her wishes. PT/OT evaluation Admission and Anticipated Discharge Date Admission Date: July 23, 2025 Subjective Patient is feeling better still having shingles pain in her WILL area. Pulmonary does not feel she has healthcare associated pneumonia or infective empyema. Her last discharge in May she had a confirmed E. coli greater than 100,000 urinary culture this was never treated curious whether this could be the cause of some of her febrile symptoms versus the shingles outbreak themselves. We will treat this urinary infection with 3 days of the cefepime as a precaution no agrees to have mercedes removed, concern for deconditioning to return to [facility], will have PT OT eval, shingles pain is increased, will have Neurontin increased Physical Exam Physical Exam: Pleasant female no coughing Lung exam is decreased at the bases but otherwise clear still some open areas for shingles outbreak Results & Data Results & Data Vital Signs (Past 12 Hours) Vital Signs Temp Pulse Pulse Resp BP Pulse Ox O2 Del Method 07/26/25 15:21 98.1 F 91 H 18 122/63 94 Room Air 07/26/25 11:34 97.7 F 87 18 140/69 93 Room Air 07/26/25 08:00 90 07/26/25 08:00 Room Air 07/26/25 07:34 97.7 F 79 18 186/92 H 92 Room Air PG Care Time/CCT Total # of Minutes Spent Total Time Spent with Patient: Total time spent is greater than 50% in coordination of care (as documented) at patient's floor/unit and/or counseling patient: Coding Level of Care Code 53084 SUB INP/OBS CARE 3/50MIN Diagnoses Shingles B02.9 Herpes zoster complications: without complications CHF (congestive heart failure) I50.9 Heart failure chronicity: unspecified Heart failure type: unspecified Elevated brain natriuretic peptide (BNP) level R79.89 Cognitive impairment R41.89 (1) Shingles Herpes zoster complications: without complications Qualified Code(s): B02.9 - Zoster without complications (2) CHF (congestive heart failure) Heart failure chronicity: unspecified Heart failure type: unspecified Qualified Code(s): I50.9 - Heart failure, unspecified
[2025-07-26] MEDS: GABAPENTIN 100 MG CAP PO SCH (20:09)
--- NOTE | 2025-07-27 15:28 | Hospitalist Progress Note ---
Date of Service July 27, 2025 Assessment & Plan (1) Shingles: (2) CHF (congestive heart failure): (3) Elevated brain natriuretic peptide (BNP) level: (4) Cognitive impairment: Plan 89-year-old female who presents for concerns of hypoxic respiratory failure with pneumonia ruled out and subsequently resolved, and to was found to have fever likely from shingles. DDx included UTI which was treated with 3 days of cefepime. #acute on chronic hypoxemic respiratory failure, resolved # Pneumonia ruled out - Moderate pleural effusion on CT, pulmonary medicine does not feel appropriate to perform thoracentesis -Completed 3 days of cefepime, no ongoing symptoms or fever #shingles Continue valacyclovir Gabapentin uptitrated to 200 mg 3 times daily. Could further uptitrate to 300 mg 3 times daily if needed for additional pain control. Monitor for sedation Inadequate pain control 07/27 with a high recurrence risk, will follow for dose titration of her gabapentin #CHF/HFpEF No acute exacerbation History of pericardial effusion noted, no ongoing pain or hemodynamic compromise #Hx of pulmonary hypertension -Known history of pericardial effusion, new pleural effusions on chest x-ray , recent 2-3-week history of fairly abrupt onset severe lower extremity edema anasarca for which they have been diuresing her at [facility] - presentation suggestive of worsening biventricular failure - Reported dry weight is 104 pounds. She is been well above that recently. - Imaging shows improvement of pericardial fluid Lungs are diminished but clear Spot dosing of Lasix as needed #Atrial fibrillation #Status post pacemaker placement - Recent visit for pacemaker interrogation was within normal limits. CHF/HFpEF as above - Restart Eliquis therapy 07/26/2025 #Diffuse Vascular Disease #Lower extremity arterial occlusion noted and flown to [place] in 2023. No recurrent or changing symptoms #History of ÓSCAR - Had previously been on CPAP/BiPAP but "could not get the masks to work so has not used it for quite some time" #Hypertension -Continue diltiazem #Hypothyroidism -Continue Synthroid 100 mcg daily #CODE STATUS - DNR/DNI per her wishes. PT/OT: Discussed 07/27. Recommend return to [facility]. Patient remains admitted for pain control Admission and Anticipated Discharge Date Admission Date: July 23, 2025 Subjective Seen at the bedside with family present. Overall feeling okay but remains in pain at her shingles site. No cough, fever, chills, shortness of breath. Did ambulate with PT reasonably well but was continuing to have pain. Family is concerned that if her pain is not adequately controlled she will likely return to the ER. Will continue to watch her up titration of her gabapentin Physical Exam Physical Exam: General: A&Ox3. NAD. Cooperative. HEENT: Atraumatic, normocephalic. Vision and hearing grossly intact. Pulm: Diminished but grossly clear Cardiac: irir, soft sm. Radial pulses intact and symmetrical. Abdominal: Nontender, nondistended, soft. BS present. Skin: Left gluteal cleft with scattered erythematous lesions, some slight crusting consistent with shingles. Results & Data Results & Data Vital Signs (Past 12 Hours) Vital Signs Temp Pulse Pulse Resp BP Pulse Ox O2 Del Method 07/27/25 15:10 36.6 C 80 16 133/71 93 Room Air 07/27/25 14:32 66 07/27/25 11:31 36.3 C L 88 18 135/73 93 Room Air 07/27/25 09:18 73 07/27/25 07:37 36.5 C 72 18 168/76 H 92 Room Air PG Care Time/CCT Total # of Minutes Spent Total Time Spent with Patient: Total time spent is greater than 50% in coordination of care (as documented) at patient's floor/unit and/or counseling patient: Coding Level of Care Code 23295 SUB INP/OBS CARE 3/50MIN Diagnoses Shingles B02.9 Herpes zoster complications: without complications CHF (congestive heart failure) I50.9 Heart failure chronicity: unspecified Heart failure type: unspecified Elevated brain natriuretic peptide (BNP) level R79.89 Cognitive impairment R41.89 (1) Shingles Herpes zoster complications: without complications Qualified Code(s): B02.9 - Zoster without complications (2) CHF (congestive heart failure) Heart failure chronicity: unspecified Heart failure type: unspecified Qualified Code(s): I50.9 - Heart failure, unspecified
[2025-07-27] MEDS: GABAPENTIN 100 MG CAP PO ONE (16:18)
[2025-07-27] MEDS: GABAPENTIN 100 MG CAP PO SCH (20:25)
--- NOTE | 2025-07-28 07:37 | Hospitalist Progress Note ---
Date of Service July 28, 2025 Assessment & Plan (1) Shingles: (2) CHF (congestive heart failure): (3) Elevated brain natriuretic peptide (BNP) level: (4) Cognitive impairment: Plan 89-year-old female who presents for concerns of hypoxic respiratory failure with pneumonia ruled out and subsequently resolved, and to was found to have fever likely from shingles. DDx included UTI which was treated with 3 days of cefepime. #shingles Continue valacyclovir. 10-day course will be complete 08/03/2025, may extend therapy to resolution of lesions. Some crusting on 07/27 exam Gabapentin titrated for herpetic neuralgia. Dose increased to 300 mg 3 times daily on 07/28 #acute on chronic hypoxemic respiratory failure, resolved # Pneumonia ruled out - Moderate pleural effusion on CT, pulmonary medicine does not feel appropriate to perform thoracentesis -Completed 3 days of cefepime, no ongoing symptoms or fever #CHF/HFpEF No acute exacerbation History of pericardial effusion noted, no ongoing pain or hemodynamic compromise #Hx of pulmonary hypertension -Known history of pericardial effusion, new pleural effusions on chest x-ray , recent 2-3-week history of fairly abrupt onset severe lower extremity edema anasarca for which they have been diuresing her at [facility] [place] - presentation suggestive of worsening biventricular failure - Reported dry weight is 104 pounds. She is been well above that recently. - Imaging shows improvement of pericardial fluid Lungs are diminished but clear Spot dosing of Lasix as needed #Atrial fibrillation #Status post pacemaker placement - Recent visit for pacemaker interrogation was within normal limits. CHF/HFpEF as above - Restart Eliquis therapy 07/26/2025 #Diffuse Vascular Disease #Lower extremity arterial occlusion noted and flown to [place] in 2023. No recurrent or changing symptoms #History of ÓSCAR - Had previously been on CPAP/BiPAP, but did not tolerate the mask well and was not using at home CPAP at bedtime #Hypertension -Continue diltiazem #Hypothyroidism -Continue Synthroid 100 mcg daily #CODE STATUS - DNR/DNI per her wishes. PT/OT: Discussed 07/27. Recommend return to [facility]. Disposition: CM following. Patient pending return to [facility] [place]. Per [facility] [place] placement not available back home until 07/30. Placement pending. Admission and Anticipated Discharge Date Admission Date: July 23, 2025 Subjective Seen at the bedside. No fevers chills or sweats. Continues to have pain with some intermittent variance and slightly improved with her medicines but still very painful at her shingles rash not adequately controlled. Otherwise no concerns at bedside. No chest pain or chest pressure. No shortness of breath. No vision change awaiting placement likely available Wednesday Physical Exam Physical Exam: General: A&Ox3. NAD. Cooperative. HEENT: Atraumatic, normocephalic. Vision and hearing grossly intact. Pulm: Diminished but grossly clear Cardiac: irir, soft sm. Radial pulses intact and symmetrical. Results & Data Results & Data Vital Signs (Past 12 Hours) Vital Signs Temp Pulse Pulse Resp BP Pulse Ox O2 Del Method 07/28/25 03:28 36.5 C 75 18 177/80 H 94 Room Air 07/27/25 23:09 36.6 C 85 16 148/78 H 93 Room Air 07/27/25 21:40 74 07/27/25 20:24 36.6 C 93 H 18 166/77 H 93 Room Air PG Care Time/CCT Total # of Minutes Spent Total Time Spent with Patient: Total time spent is greater than 50% in coordination of care (as documented) at patient's floor/unit and/or counseling patient: Coding Level of Care Code 01927 SUB INP/OBS CARE 3/50MIN Diagnoses Shingles B02.9 Herpes zoster complications: without complications CHF (congestive heart failure) I50.9 Heart failure chronicity: unspecified Heart failure type: unspecified Elevated brain natriuretic peptide (BNP) level R79.89 Cognitive impairment R41.89 (1) Shingles Herpes zoster complications: without complications Qualified Code(s): B02.9 - Zoster without complications (2) CHF (congestive heart failure) Heart failure chronicity: unspecified Heart failure type: unspecified Qualified Code(s): I50.9 - Heart failure, unspecified
[2025-07-28] MEDS: GABAPENTIN 100 MG CAP PO ONE (12:08)
[2025-07-28] MEDS: GABAPENTIN 300 MG CAP PO SCH (14:02)
--- NOTE | 2025-07-29 09:28 | Hospitalist Progress Note ---
Date of Service July 29, 2025 Assessment & Plan (1) Shingles: (2) CHF (congestive heart failure): (3) Elevated brain natriuretic peptide (BNP) level: (4) Cognitive impairment: Plan 89-year-old female who presents for concerns of hypoxic respiratory failure with pneumonia ruled out and subsequently resolved, and to was found to have fever likely from shingles. DDx included UTI which was treated with 3 days of cefepime. She is pending placement over the weekend. Over that time had gabapentin titrated for pain control for shingles with improved analgesia 07/29. #shingles Continue valacyclovir. 10-day course will be complete 08/03/2025, may extend therapy to resolution of lesions. Minimal amount of crusting of distal lesions on 07/27 exam. On repeat exam 07/29 proximal regions remain erythematous vesicular and without crust, some slight drying and crust at the smaller distal lesions remains present Gabapentin titrated for herpetic neuralgia. Dose increased to 300 mg 3 times daily on 07/28. She has had significant improvement in her pain and no sedation at this dose. Will continue 300 mg 3 times daily Continue isolation precautions #acute on chronic hypoxemic respiratory failure, resolved # Pneumonia ruled out - Moderate pleural effusion on CT, pulmonary medicine did not recommend thoracentesis -Completed 3 days of cefepime, no ongoing symptoms or fever #CHF/HFpEF No acute exacerbation History of pericardial effusion noted, no ongoing pain or hemodynamic compromise #Hx of pulmonary hypertension -Known history of pericardial effusion, new pleural effusions on chest x-ray , recent 2-3-week history of fairly abrupt onset severe lower extremity edema anasarca for which they have been diuresing her at [facility] - presentation suggestive of worsening biventricular failure - Reported dry weight is 104 pounds. She is been well above that recently. - Imaging shows improvement of pericardial fluid Lungs are diminished but clear Spot dosing of Lasix as needed Remains on room air lungs slightly diminished but clear 07/29 #Atrial fibrillation #Status post pacemaker placement - Recent visit for pacemaker interrogation was within normal limits. CHF/HFpEF as above - Restart Eliquis therapy 07/26/2025 #Diffuse Vascular Disease #Lower extremity arterial occlusion noted and flown to [place] in 2023. No recurrent or changing symptoms #History of ÓSCAR - Had previously been on CPAP/BiPAP, but did not tolerate the mask well and was not using at home CPAP at bedtime #Hypertension -Continue diltiazem #Hypothyroidism -Continue Synthroid 100 mcg daily #CODE STATUS - DNR/DNI PT/OT: Discussed 07/27. Recommend return to [facility]. Disposition: following. Patient pending return to [facility]. Per [facility] placement not available back home until 07/30. Placement pending. Admission and Anticipated Discharge Date Admission Date: July 23, 2025 Nikolay Donovan was seen at the bedside this morning. She reports that her pain is actually improved yesterday, it is not resolved but she is much more comfortable than the prior day. She has not had fever chills or sweats. She remains pending placement. No acute concerns/new concerns today Physical Exam Physical Exam: General: A&Ox3. NAD. Cooperative. HEENT: Atraumatic, normocephalic. Vision and hearing grossly intact. Pulm: Diminished but grossly clear Cardiac: irir, soft sm. Radial pulses intact and symmetrical. Skin: Reexamination of her right buttock reveals some increased vesicular erythematous lesions approximately. Minimal crust at distal lesions. Results & Data Results & Data Vital Signs (Past 12 Hours) Vital Signs Temp Pulse Pulse Resp BP BP Pulse Ox 07/29/25 07:43 36.5 C 68 16 168/72 H 95 07/29/25 02:58 36.9 C 78 20 150/77 H 94 07/28/25 21:37 78 O2 Del Method 07/29/25 07:43 Room Air 07/29/25 02:58 Room Air 07/28/25 21:37 PG Care Time/CCT Total # of Minutes Spent Total Time Spent with Patient: Total time spent is greater than 50% in coordination of care (as documented) at patient's floor/unit and/or counseling patient: Coding Level of Care Code 17282 SUB INP/OBS CARE 3/50MIN Diagnoses Shingles B02.9 Herpes zoster complications: without complications CHF (congestive heart failure) I50.9 Heart failure chronicity: unspecified Heart failure type: unspecified Elevated brain natriuretic peptide (BNP) level R79.89 Cognitive impairment R41.89 (1) Shingles Herpes zoster complications: without complications Qualified Code(s): B02.9 - Zoster without complications (2) CHF (congestive heart failure) Heart failure chronicity: unspecified Heart failure type: unspecified Qualified Code(s): I50.9 - Heart failure, unspecified
[2025-07-30 07:02] VITALS: RESP 18; TEMP 97.3
--- NOTE | 2025-07-30 07:37 | Discharge Summary ---
Discharge Summary Date of Service July 30, 2025 Principal Dx & Hospital Course #1 = Principal Diagnosis (1) Shingles: (2) CHF (congestive heart failure): (3) Elevated brain natriuretic peptide (BNP) level: (4) Cognitive impairment: Plan 89-year-old female who presents for concerns of hypoxic respiratory failure with pneumonia ruled out and subsequently resolved, and to was found to have fever likely from shingles. DDx included UTI which was treated with 3 days of cefepime. She is pending placement over the weekend. Over that time had gabapentin titrated for pain control for shingles with improved analgesia 07/29. #shingles Continue valacyclovir. 7 additional day course will be complete 08/06/2025, may extend therapy to resolution of lesions. Minimal amount of crusting of distal lesions on 07/27 exam. On repeat exam 07/29 proximal regions remain erythematous vesicular and without crust, some slight drying and crust at the smaller distal lesions remains present Gabapentin titrated for herpetic neuralgia. Dose increased to 300 mg 3 times daily on 07/28. She has had significant improvement in her pain and no sedation at this dose. Will continue 300 mg 3 times daily Continue isolation precautions #acute on chronic hypoxemic respiratory failure, resolved # Pneumonia ruled out - Moderate pleural effusion on CT, pulmonary medicine did not recommend thoracentesis -Completed 3 days of cefepime, no ongoing symptoms or fever #CHF/HFpEF No acute exacerbation History of pericardial effusion noted, no ongoing pain or hemodynamic compromise #Hx of pulmonary hypertension -Known history of pericardial effusion, new pleural effusions on chest x-ray , recent 2-3-week history of fairly abrupt onset severe lower extremity edema anasarca for which they have been diuresing her at [facility] - presentation suggestive of worsening biventricular failure - Reported dry weight is 104 pounds. She is been well above that recently. - Imaging shows improvement of pericardial fluid Lungs are diminished but clear Remains on room air lungs slightly diminished but clear 07/30 #Atrial fibrillation #Status post pacemaker placement - Recent visit for pacemaker interrogation was within normal limits. CHF/HFpEF as above - Restart Eliquis therapy 07/26/2025 #Diffuse Vascular Disease #Lower extremity arterial occlusion noted and flown to [place] in 2023. No recurrent or changing symptoms #History of ÓSCAR - Had previously been on CPAP/BiPAP, but did not tolerate the mask well and was not using at home CPAP at bedtime #Hypertension -Continue diltiazem #Hypothyroidism -Continue Synthroid 100 mcg daily #CODE STATUS - DNR/DNI Recommend return to [facility]. Notes For Next Care Provider May need to down tried straight her Neurontin if she is too lethargic. Continue to assess volume status as she transitions to different diet Admission HPI Per Admitting Provider 89-year-old female resident of [facility] history of HFpEF, permanent atrial fibrillation, diffuse vascular disease, stroke, chronic hypoxemic respiratory failure, hypertension, hyperlipidemia, hypothyroidism, ÓSCAR presents to the emergency department with worsening pain on her buttocks [facility] has shy worsening basil past 24-48 hours. This is accompanied by pain going down her left left. According to patient, her pain has worsened to the point that she decided to come into the hospital. Another complaint she was having is SOB, but she does not report much detail regarding this symptom. She just reports that it has worsened today. She denies any fever, chills, nausea, vomiting. In the ED she did have a fever. Discharge Exam Pleasant female somewhat sleepy but was awakened earlier in the morning prior to discharge. Exam is rate controlled Lungs are clear Discharge Plan Discharge Items Patient Disposition: Personal Snf Reason For Visit: FEVER Discharge Diagnosis: fever from shingles outbreak on buttocks acute on chronic hypoxic respiratory failure resolved Condition on Discharge: Fair Activity: Per Instructions section Non-emergency contact: Primary Care Provider Call non-emergency contact if: your symptoms worsen Follow-up/Referrals: Jamie Norton DO [Primary Care Provider] - Diet: Regular Addtl Attending Provider Instructions: follow for weight gain as pt may need some lasix intermittently for fluid retention Neurontin for herpetic neuralgia Pending Studies at Discharge: No Stand-Alone Forms: [facility], Smoking Cessation Skilled Items Patient informed of condition?: Yes DNR: Yes Discharge Level of Care: Other Communicable Disease: Yes Discharge Prognosis: Stable Lines: None Urinary Catheter: No Medications and DC Order Prescriptions: New acetaminophen 325 mg Tablet 650 mg PO QID 120 Days Qty: 960 0RF valacyclovir 500 mg Tablet 1,000 mg PO Q24H Qty: 7 0RF gabapentin 300 mg Capsule 300 mg PO TID Qty: 90 0RF Continued donepezil 5 mg tablet 5 mg PO HS atorvastatin 20 mg tablet 20 mg PO HS sertraline 50 mg tablet 50 mg PO QAM docusate sodium 100 mg Tablet 100 mg PO DAILY PRN (Reason: cnstipation) omeprazole 40 mg capsule,delayed release(DR/EC) 40 mg PO QAM Eliquis 2.5 mg tablet 2.5 mg PO BID levothyroxine 100 mcg tablet 100 mcg PO QAM famotidine 20 mg tablet 20 mg PO HS loratadine 10 mg Tablet 10 mg PO DAILY melatonin 10 mg Tablet,Chewable 10 mg PO HS cyanocobalamin (vitamin B-12) [Vitamin B-12] 2,500 mcg Tablet, Sublingual 5,000 mcg SUBLINGUAL DAILY nitroglycerin [Nitrostat] 0.4 mg Tablet, Sublingual 0.4 mg sublingual UD PRN (Reason: Chest Pain) Cranberry Plus Vitamin C 2 softgel PO DAILY Qty: 0 Rx Instructions: 4200mg acetaminophen 500 mg Tablet 1,000 mg PO DAILY MDD 3g PRN (Reason: Flu Symptoms) lidocaine 4 % Adhesive Patch,Medicated 1 patch TOPICAL DAILY Rx Instructions: on 12 hours off 12 hours ondansetron 4 mg Tablet,Disintegrating 4 mg PO .EVERY 6-8 HOURS PRN (Reason: Nausea And Vomiting) diltiazem HCl 180 mg capsule,extended release 24hr 180 mg PO DAILY Rx Instructions: HOLD FOR SBP LESS THAN 110 hydralazine 25 mg tablet 25 mg PO TID Rx Instructions: HOLD FOR SBP LESS THAN 110 bisacodyl 10 mg Suppository 10 mg NH DAILY PRN (Reason: Constipation) Rx Instructions: AFTER 3 DAYS OF NO BOWEL MOVEMENT ferrous sulfate 325 mg (65 mg iron) Tablet 325 mg PO DAILY metoprolol tartrate 50 mg tablet 100 mg PO BID mirtazapine 7.5 mg tablet 15 mg PO HS lutein 10 mg Tablet 0 mg PO DAILY Rx Instructions: Patient takes 2 Lutein Gummies daily strength not specified on MAR menthol-zinc oxide [Calmoseptine] 0.44-20.6 % Ointment 1 applic TOPICAL DAILY PRN (Reason: irritation/breakdown) acetaminophen 500 mg Tablet 1,000 mg PO BID melatonin 5 mg Tablet,Chewable 5 mg PO HS Rx Instructions: take with 10mg to equal 15mg dose Trelegy Ellipta 100-62.5-25 mcg blister with device 1 inh INHALATION DAILY magnesium oxide 400 mg magnesium tablet 400 mg PO QAM furosemide [Lasix] 20 mg tablet 20 mg PO DAILY PRN (Reason: weight gain of 3 lbs) Qty: 0 0RF Discharge Orders: Discharge Order (Routine); Ordered 07/30/25 Ordered By: Newton Hunt Admission Data Admit Date/Time: 07/23/25 10:53 Attending Provider: Newton Hunt Admit Provider: Brendan Will Primary Care Provider: Jamie Norton Other Providers: Brendan Will; Louie Russell; Juno Orosco; Mendoza Garcia; Gisselle Arreola; Glen Byrd; Omega Guerra; Meryl Martin; Jamie White Other Interventions: Discharge Summary Assessment (RN) Last Done: 07/30/25 11:28 Hospital Stay Data Consultations 07/23/25 09:36 ED Decision to Admit Stat 07/24/25 14:28 Consult Pulmonology Routine Diagnostic Imagining Performed 07/23/25 10:59 CT chest diagnostic wo con Stat Discharge Instructions Given to Patient (Per Discharging Provider) follow for weight gain as pt may need some lasix intermittently for fluid retention Neurontin for herpetic neuralgia Total Time Total Time Spent Total Time Spent (In Minutes): I personally have spent greater than 30 minutes of time on the patient discharge today including review of tests, documentation, exam, and discussing treatment plan moving forward with the patient. Coding Level of Care Code 72797 INP/OBS DISCH >30 MIN Diagnoses Shingles B02.9 Herpes zoster complications: without complications CHF (congestive heart failure) I50.9 Heart failure chronicity: unspecified Heart failure type: unspecified Elevated brain natriuretic peptide (BNP) level R79.89 Cognitive impairment R41.89
[2025-07-30 11:40] VITALS: BP 148/72; PULSE 67; O2SAT 95
== END 2025-07-30 12:54 | disposition home or self-care (01) | DRG 595 ==
LOC: ED 08:11 → EDINP 10:53 → SUATTDRO 10:53 → 2S 12:03